=== PATIENT | male | born 1935 | race Caucasian/White ===

== ENCOUNTER 2017-01-29 17:17 | Inpatient (IN) | payer MEDICARE, OTHER ==
[~2017-01-29] VITALS: Ht 167.6 cm; Wt 92.0 kg
[~2017-01-29 17:17] MED LIST: ASPI-664 PO; CARV3.1260 PO; ERGO500014 PO; FEBU40TA PO; FOLI-49 PO; FURO40TA4 PO; GLIM1TAB2 PO; HYDR-3672 PO; NIFE30TA60 PO; PRAS10TA6 PO; SIMV20TA PO; TAMS0.4C2 PO
[2017-01-29] MEDS ORDERED: ONDANSETRON 4 MG INJ IV STA (18:31)
[2017-01-29] MEDS ORDERED: morphine 4 MG/ML VIAL IV STA (18:31)
[2017-01-29 18:57] LABS: ANION GAP 18 (8-16); BLOOD UREA NITROGEN 72 mg/dl (7-20); CALCIUM 8.8 mg/dl (8.4-10.2); CARBON DIOXIDE 19 mmol/L (21-31); CHLORIDE 112 mmol/L (97-110); CREATININE 7.82 mg/dl (0.61-1.24); GLUCOSE 68 mg/dl (70-220); SODIUM 143 mmol/L (135-144)
[2017-01-29] MEDS ORDERED: NEPHRO-VITE PO (18:57)
[2017-01-29] MEDS ORDERED: ISOS60TA PO (18:58)
[2017-01-29] MEDS ORDERED: ICOS1CAP PO (18:58)
--- NOTE | 2017-01-29 18:58 | RADRPT ---
PROCEDURE: XR Chest. CLINICAL INDICATION: Chest pain. TECHNIQUE: Single frontal chest x-ray. COMPARISON: 02/06/2016 FINDINGS: The cardiomediastinal silhouette is mildly enlarged. Pulmonary vasculature is prominent and slightly indistinct. Increased right lower lobe atelectasis noted. There is mild aortic calcification. No signs of pleural fluid or pneumothorax are seen. The osseous structures and soft tissues are unremar kable. IMPRESSION: 1. Interval increased right lower lobe atelectasis. 2. Mild prominence of interstitial markings likely reflecting mild edema. 3. Mild cardiomegaly and aortic calcification. RPTAT: RR .José Miguel Weller MD, MD Date Time Electronically viewed and signed by .José Miguel Weller MD, on 01/29/2017 18:58 .A/
[2017-01-29] MEDS ORDERED: CLON-379 PO (18:59)
[2017-01-29] MEDS ORDERED: ROPI0.25 PO (19:00)
[2017-01-29 19:13] LABS: BASOPHILS % 0.4 % (0.0-2.0); EOSINOPHILS # 0.2 10^3/ul (0.0-0.5); EOSINOPHILS % 2.4 % (0.0-7.0); HEMATOCRIT 36.5 % (42.0-52.0); HEMOGLOBIN 11.6 g/dl (14.0-18.0); LYMPHOCYTES # 0.8 10^3/ul (0.8-2.9); LYMPHOCYTES % 10.2 % (15.0-51.0); MEAN CORPUSCULAR HEMOGLOBIN 34.4 pg (29.0-33.0); MEAN CORPUSCULAR HGB CONC 31.8 g/dl (32.0-37.0); MEAN CORPUSCULAR VOLUME 108.3 fl (82.0-101.0); MEAN PLATELET VOLUME 10.2 fl (7.4-10.4); MONOCYTE # 0.6 10^3/ul (0.3-0.9); MONOCYTES % 8.3 % (0.0-11.0); NEUTROPHIL # 5.8 10^3/ul (1.6-7.5); NEUTROPHILS % 78.4 % (39.0-77.0); PLATELET COUNT 124 10^3/UL (140-415); RED BLOOD COUNT 3.37 10^6/ul (4.70-6.10); RED CELL DISTRIBUTION WIDTH 14.5 % (11.5-14.5); WHITE BLOOD COUNT 7.4 10^3/ul (4.8-10.8)
[2017-01-29 19:20] LABS: TROPONIN-I < 0.012 ng/ml (0.00-0.12)
[2017-01-29 19:21] LABS: POTASSIUM 6.1 mmol/L (3.5-5.1)
[2017-01-29] MEDS ORDERED: INSULIN REGULAR, HUMAN 100 UNIT/1 ML 3ML VIAL IV STA (19:33)
[2017-01-29] MEDS ORDERED: NA POLYST SULFON 15 GM/60 ML BTL PO STA (19:33)
[2017-01-29] MEDS ORDERED: NA BICARBONATE 8.4% 50 ML SYG IV STA (19:33)
[2017-01-29] MEDS ORDERED: DEXTROSE 50% 50 ML SYRINGE IV PRN (20:00)
[2017-01-29] MEDS ORDERED: ACETAMINOPHEN 325 MG TAB PO PRN (20:00)
[2017-01-29] MEDS ORDERED: ONDANSETRON 4 MG INJ IV PRN (20:00)
[2017-01-29 20:45] VITALS: Ht 167.6 cm; Wt 92.0 kg
[2017-01-29 21:05] VITALS: PULSE 66
[2017-01-29 21:25] VITALS: BP 166/63; RESP 20
--- NOTE | 2017-01-29 21:57 | ERA ---
ER Documentation Chief Complaint Date/Time DATE: 01/29/17 TIME: 21:55 Chief Complaint Pt BIb RA for c/o B leg weakness and back pain, pt enroute for HD. HPI Patient is an 81-year-old male with coronary disease, hypertension, and dialysis who presents with bilateral leg pain. He says he also has weakness and was unable to get up. He missed dialysis today. His blood pressure was 220 /110. His sugar was 69 per paramedics. He was brought in by ambulance. ROS All systems reviewed and are negative except as per history of present illness. Medications Home Meds Reported Medications Ropinirole Hcl* (Ropinirole Hcl*) 0.25 Mg Tablet, 0.25 MG PO HS, TAB 01/29/17 Clonidine Hcl* (Clonidine Hcl*) 0.1 Mg Tab, 0.1 MG PO TID Y for HTN, TAB NEEDED IF SBP>160 01/29/17 Icosapent Ethyl (VASCEPA) 1 Gm Capsule, 1 GM PO QID, CAP 01/29/17 Isosorbide Mononitrate* (Isosorbide Mononitrate*) 60 Mg Tab.er.24h, 60 MG PO DAILY, TAB 01/29/17 [Nephro-Chrissy] No Conflict Check, 1 TAB PO DAILY 01/29/17 Febuxostat* (Uloric*) 40 Mg Tablet, 40 MG PO DAILY, TAB 02/06/16 Nifedipine* (Nifedipine ER*) 30 Mg Tablet.sa, 30 MG PO DAILY, TAB.SA 02/06/16 Glimepiride* (Glimepiride*) 1 Mg Tablet, 1 MG PO WITH MEALS, TAB TID 02/06/16 Simvastatin* (Zocor*) 20 Mg Tablet, 20 MG PO QHS, #30 TAB 02/06/16 Prasugrel Hydrochloride* (Effient*) 10 Mg Tablet, 10 MG PO DAILY, TAB 02/06/16 Tamsulosin Hcl* (Tamsulosin Hcl*) 0.4 Mg Cap.er.24h, 0.4 MG PO DAILY, CAP 02/06/16 Carvedilol* (Carvedilol*) 3.125 Mg Tablet, 3.125 MG PO BID, #60 TAB 02/06/16 Hydralazine Hcl* (Hydralazine Hcl*) 50 Mg Tab, 50 MG PO BID, #30 TAB 02/06/16 Ergocalciferol* (Drisdol* (Vitamin D2)) 50,000 Unit Capsule, 71616 UNIT PO Q7D, CAP TAKE EVERY Tuesdays02/06/16 Discontinued Reported Medications Furosemide* (Furosemide*) 40 Mg Tablet, 40 MG PO DAILY, TAB 02/06/16 Folic Acid* (Folic Acid*) 1 Mg Tablet, 1 MG PO DAILY, TAB 02/06/16 Aspirin* (Aspirin* EC) 81 Mg Tablet.dr, 81 MG PO DAILY, TAB 02/06/16 Allergies Allergies: Coded Allergies: No Known Allergy (Unverified , 01/29/17) PMhx/Soc History of Surgery: Yes (angiogram) Anesthesia Reaction: No Hx 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 Disorder: No Hx Respiratory Disorders: Yes (chf) Hx Cardiac Disorders: Yes (cad chf, HTN) Hx Psychiatric Problems: No Hx Miscellaneous Medical Probl: Yes (ckd, BPH) Hx Alcohol Use: No Hx Substance Use: No Hx Tobacco Use: Yes Smoking Status: Current every day smoker FmHx Family History: No diabetes Physical Exam Vitals Vital Signs Date Time Temp Pulse Resp B/P Pulse Ox O2 Delivery O2 Flow Rate FiO2 01/29/17 18:53 72 20 181/62 95 01/29/17 18:20 98.1 78 20 188/64 95 Physical Exam Const: Moderate distress Head: Atraumatic Eyes: Normal Conjunctiva ENT: Normal External Ears, Nose and Mouth. Neck: Full range of motion..~ No meningismus. Resp: Clear to auscultation bilaterally Cardio: Regular rate and rhythm, no murmurs Abd: Soft, non tender, non distended. Normal bowel sounds Skin: No petechiae or rashes Back: No midline or flank tenderness Ext: 2+ pitting edema bilateral lower extremities Neur: Awake and alert Psych: Normal Mood and Affect Result Diagram: 01/29/17181901/29/17 182 Results 24 hrs Laboratory Tests Test 01/29/17 18:20 White Blood Count 7.410^3/ul Red Blood Count 3.3710^6/ul Hemoglobin 11.6g/dl Hematocrit 36.5% Mean Corpuscular Volume 108.3fl Mean Corpuscular Hemoglobin 34.4pg Mean Corpuscular Hemoglobin Concent 31.8g/dl Red Cell Distribution Width 14.5% Platelet Count 63183^3/UL Mean Platelet Volume 10.2fl Neutrophils % 78.4% Lymphocytes % 10.2% Monocytes % 8.3% Eosinophils % 2.4% Basophils % 0.4% Nucleated Red Blood Cells % 0.0/100WBC Neutrophils # 5.810^3/ul Lymphocytes # 0.810^3/ul Monocytes # 0.610^3/ul Eosinophils # 0.210^3/ul Basophils # 0.010^3/ul Nucleated Red Blood Cells # 0.010^3/ul Sodium Level 143mmol/L Potassium Level 6.1mmol/L Chloride Level 112mmol/L Carbon Dioxide Level 19mmol/L Anion Gap 18 Blood Urea Nitrogen 72mg/dl Creatinine 7.82mg/dl Glucose Level 68mg/dl Calcium Level 8.8mg/dl Troponin I < 0.012ng/ml Current Medications Medications (Trade) Dose Ordered Sig/Bethel Route PRN Reason Start Time Stop Time Status Last Admin Dose Admin Morphine Sulfate (morphine) 4 mg ONCE STAT IV 01/29/17 18:31 01/29/17 18:32 DC 01/29/17 18:42 Ondansetron HCl (Zofran Inj) 4 mg ONCE STAT IV 01/29/17 18:31 01/29/17 18:32 DC 01/29/17 18:42 Sodium Polystyrene Sulfonate (Kayexalate) 30 gm ONCE STAT PO 01/29/17 19:33 01/29/17 19:38 DC 01/29/17 20:13 Sodium Bicarbonate (Na Bicarb 8.4% Syg) 50 ml ONCE STAT IV 01/29/17 19:33 01/29/17 19:38 DC 01/29/17 20:13 Insulin Human Regular (Humulin R) 10 unit ONCE STAT IV 01/29/17 19:33 01/29/17 19:38 DC 01/29/17 20:18 Procedures/MDM EKG read by me: Rate/Rhythm: Regular rate and rhythm at a normal rate Intervals: Normal Impression: No evidence of ischemia or arrhythmia Chest x-ray shows no pneumonia or pneumothorax per radiology. Patient is an 81-year-old male with coronary disease, hypertension, and dialysis who presents with missing dialysis. He was found to have hyperkalemia and was given insulin, glucose, bicarbonate, and Kayexalate. The patient will be admitted to the panel team to a telemetry bed. The patient will need to have his dialysis. Departure Diagnosis: Primary Impression: Hyperkalemia ZUNILDA AGUIRRE MD Jan 29, 2017 21:57
[2017-01-30] VITALS (14 sets, daily range): BP systolic 140–194; BP diastolic 64–87; PULSE 61–85; RESP 16–20
[2017-01-30 00:18] LABS: TROPONIN-I 0.031 ng/ml (0.00-0.12)
[2017-01-30 00:20] LABS: CK-MB 1.34 ng/ml (0.0-2.4)
[2017-01-30] MEDS ORDERED: GLUCAGON 1 MG INJ IM PRN (01:00)
[2017-01-30] MEDS ORDERED: DEXTROSE 50% 50 ML SYRINGE IV PRN ×2 (01:00)
[2017-01-30] MEDS ORDERED: GLUCOSE GEL 15 GRAM TUBE BUCCAL PRN (01:00)
[2017-01-30] MEDS ORDERED: GLUCOSE GEL 15 GRAM TUBE PO PRN ×2 (01:00)
--- NOTE | 2017-01-30 06:48 | HP ---
Date/Time of Note Date/Time of Note DATE: 01/30/17 TIME: 06:39 Assessment/Plan VTE Prophylaxis VTE Prophylaxis Intervention: heparin Lines/Catheters IV Catheter Type (from Nrs): Saline Lock Assessment/Plan Assessment/Plan 1. Bilateral lower extremity weakness -No focal weakness as well as no other symptoms suggestive of CVA. Given his risk factor as well as elevated blood pressure upon presentation, I will order CT of the brain -Additional imaging or workup as needed -Physical therapy evaluation 2. Hyperkalemia, 2/2 missed dialysis -s/p correction and ER -Nephrology for dialysis 3. ESRD on HD, Wednesday and Wednesday -See #2 4. Hypertensive urgency -Continue antihypertensives with adjustment as needed 5. History of dyslipidemia -Continue statin 6. Anemia of chronic disease -Hemoglobin stable. Patient does however has a history of upper GI bleed -We will monitor H&H. Blood transfusion, GI consult as well as additional workup if hemoglobin drops 7. History of pulmonary nodule -Will enforce/educate patient about the need for follow-up/periodic CT chest as outpatient by his primary doctor HPI/ASHLEY Admit Date/Time Admit Date/Time Jan 29, 2017 at 19:38 Hx of Present Illness This is an 81-year-old male with a history of ESRD on HD Wednesday and Wednesday, CHF , hypertension, dyslipidemia, pulmonary nodule, upper GI bleed who presented to the emergency department complaining of bilateral lower extremity weakness. Patient was having difficulty walking because of the weakness and as such he actually had to miss his dialysis. Denied upper extremity weakness, slurred speech, blurry vision, headache, seizure-like activity, chest pain or shortness of breath When he presented to the ER, blood pressure was 188/64. Labs shows a potassium of 6.1 creatinine almost 8, BUN 72, glucose 68, PLT 124 and hemoglobin 11.4. Chest x-ray shows Interval increased right lower lobe atelectasis AND Mild prominence of interstitial markings likely reflecting mild edema. . PMH/Family/Social Social History Smoking Status: Current every day smoker Exam/Review of Systems Vital Signs Vitals Vital Signs Date Time Temp Pulse Resp B/P Pulse Ox O2 Delivery O2 Flow Rate FiO2 01/30/17 04:16 97.9 84 20 145/64 98 Exam Constitutional: alert, oriented, well developed Head: atraumatic, normocephalic Eyes: EOMI, PERRL Respiratory: clear to auscultation, normal air movement Cardiovascular: nl pulses, regular rate and rhythm Gastrointestinal: non-tender, soft Extremities: normal pulses Labs Result Diagram: 01/29/17181901/29/171819 Medications Medications Current Medications Ondansetron HCl (Zofran Inj) 4 mg Q6 PRN IV NAUSEA AND/OR VOMITING; Start 01/30 at 00:00 Acetaminophen (Tylenol Tab) 650 mg Q6H PRN PO PAIN AND OR ELEVATED TEMP; Start 01/30/17 at 00:00 Clonidine (Catapres) 0.1 mg TID PRN PO HTN Last administered on 01/30/17 01:02 ; Admin Dose 0.1 MG; Start 01/30/17 at 00:00 Ergocalciferol (Drisdol) 50,000 unit Q7D PO ; Start 01/30/17 at 00:00; Status UNV Febuxostat (Uloric) 40 mg DAILY PO ; Start 01/30/17 at 09:00 Hydralazine HCl (Apresoline) 50 mg BID PO Last administered on 01/30/17 00:58 ; Admin Dose 50 MG; Start 01/30/17 at 00:00 Isosorbide Mononitrate (Imdur) 60 mg DAILY PO ; Start 01/30/17 at 09:00 Nifedipine (Procardia Xl) 30 mg DAILY PO ; Start 01/30/17 at 09:00 Prasugrel (Effient) 10 mg DAILY PO ; Start 01/30/17 at 09:00 Ropinirole HCl (Requip) 0.25 mg HS PO ; Start 01/30/17 at 21:00 Tamsulosin HCl (Flomax) 0.4 mg DAILY@21 PO ; Start 01/30/17 at 21:00 Miscellaneous Information 1 gm QID PO ; Start 01/30/17 at 09:00; Status UNV Atorvastatin Calcium (Lipitor) 10 mg QHS PO ; Start 01/30/17 at 21:00 Multivit/Ca Carb/ B Cmplx/FA/Prenat (Paulina-Chrissy) 1 tab DAILY PO ; Start 01/30/17 at 09:00 Carvedilol (Coreg) 3.125 mg BID PO Last administered on 01/30/17 00:58; Admin Dose 3.125 MG; Start 01/30/17 at 00:00 Miscellaneous Information 1 ea NOTE XX ; Start 01/30/17 at 01:00 Glucose (Glutose) 15 gm Q15M PRN PO DECREASED GLUCOSE; Start 01/30/17 at 01:00 Glucose (Glutose) 22.5 gm Q15M PRN PO DECREASED GLUCOSE; Start 01/30/17 at 01: 00 Dextrose (D50w Syringe) 25 ml Q15M PRN IV DECREASED GLUCOSE; Start 01/30/17 at 01:00 Dextrose (D50w Syringe) 50 ml Q15M PRN IV DECREASED GLUCOSE; Start 01/30/17 at 01:00 Glucagon (Glucagen) 1 mg Q15M PRN IM DECREASED GLUCOSE; Start 01/30/17 at 01:00 Glucose (Glutose) 15 gm Q15M PRN BUCCAL DECREASED GLUCOSE; Start 01/30/17 at 01 :00 Miscellaneous Information (*Order Clarification Bulletin) MEDICATION REQUIRES CLARIFICATI... Q8H XX Last administered on 01/30/17 01:04; Admin Dose 0.1 EA; Start 01/30/17 at 01:00 KENNA DORANTES MD Jan 30, 2017 06:48
[2017-01-30] MEDS ORDERED: GLIMEPIRIDE 2 MG TAB PO SCH (08:00)
[2017-01-30 08:08] LABS: TROPONIN-I 0.036 ng/ml (0.00-0.12)
[2017-01-30 08:11] LABS: CK-MB 2.26 ng/ml (0.0-2.4)
[2017-01-30 08:29] LABS: ALBUMIN 3.6 g/dl (3.3-4.9); ALBUMIN/GLOBULIN RATIO 1.02; CALCIUM 8.7 mg/dl (8.4-10.2); CREATININE 7.81 mg/dl (0.61-1.24); MAGNESIUM 1.9 mg/dl (1.7-2.5); PHOSPHORUS 6.5 mg/dl (2.5-4.9); POTASSIUM 5.7 mmol/L (3.5-5.1); TOTAL PROTEIN 7.1 g/dl (6.1-8.1)
[2017-01-30] MEDS: ISOSORBIDE MONONITRATE(SR)60 MG TAB PO SCH (09:06)
[2017-01-30] MEDS: PRASUGREL HYDROCHLORIDE 10 MG TABLET PO SCH (09:06)
[2017-01-30] MEDS: MULTIVIT/CA CARB/B CMPLX/FA TAB PO SCH (09:07)
[2017-01-30] MEDS: FEBUXOSTAT 40 MG TABLET PO SCH (09:07)
[2017-01-30] MEDS: NIFEdipine (XL) 30 MG TAB PO SCH (09:08)
[2017-01-30] MEDS: DEXTROSE 5% 1,000 ML IV SCH (10:52)
[2017-01-30] MEDS: INSULIN ASPART [NOVOLOG] 3 ML PEN SC SCH ×3 (12:00→20:41)
--- NOTE | 2017-01-30 12:29 | CONS ---
Date/Time of Note Date/Time of Note DATE: 01/30/17 TIME: 12:24 Consultation Date/Type/Reason Admit Date/Time Jan 29, 2017 at 19:38 Date of Consultation: Jan 30, 2017 Reason for Consultation esrd Hx of Present Illness HISTORY OF PRESENT ILLNESS: This is a 81 year-old male with a past medical history of CHF, history of hypertension, history of ESRD on HD twice a week. The patient is being followed by primary drug room operator, Dr. Dominguez, at [facility], who presented to [facility] on 01/29/17 for severe weakness. He is noted to be hyperkalemic. His last full HD was yesterday. We were asked to assist with management of his dialytic needs PAST MEDICAL HISTORY: History of hypertension, CHF, ESRD, coronary artery disease. ALLERGIES: NO KNOWN DRUG ALLERGIES. MEDICATIONS: reviewed PAST SURGICAL HISTORY: None per the patient. FAMILY HISTORY: No family history of kidney disease or heart disease. SOCIAL HISTORY: The patient is a smoker. No alcohol or drug use. REVIEW OF SYSTEMS A 14-point review of systems was conducted. Pertinent positives in HPI, otherwise negative. PHYSICAL EXAMINATION GENERAL: The patient in no acute distress. HEENT: Head is normocephalic. NECK: Supple. HEART: Regular rate. No gallops, clicks. LUNGS: Show diminished breath sounds at base, otherwise clear. ABDOMEN: Soft, nontender to palpation. No rebound or guarding. EXTREMITIES: Negative for clubbing, cyanosis, or edema. DERMATOLOGIC: No rashes. MUSCULOSKELETAL: No joint effusions. NEUROLOGIC: No focal deficits. I/P 1. ESRD: will be dialyzed for hyperkalemia and mild chf. he will be seen again during treatment 2. hyperkalemia. 3. Mineral bone disease. Will check phosphorus level as well as a vitamin D, and a PTH level. Will continue to monitor. 4. anemia: h/h at target. will hold epogen 5. History of congestive heart failure. will increase uf with hd Thank you, Dr. Santillan, for this very interesting consult. It will be a pleasure to follow the patient with you throughout the hospital course. Social History Smoking Status: Current every day smoker Exam/Review of Systems Vital Signs Vitals Vital Signs Date Time Temp Pulse Resp B/P Pulse Ox O2 Delivery O2 Flow Rate FiO2 01/30/17 12:17 69 9/16/17 12:05 98.6 16 164/87 90 Results Result Diagram: 01/29/17 1820 01/30/17 0718 Results 24 hrs Laboratory Tests Test 01/29/17 18:20 01/29/17 23:29 01/30/17 07:18 01/30/17 10:06 White Blood Count 7.4 Red Blood Count 3.37 L Hemoglobin 11.6 L Hematocrit 36.5 #L Mean Corpuscular Volume 108.3 H Mean Corpuscular Hemoglobin 34.4 H Mean Corpuscular Hemoglobin Concent 31.8 L Red Cell Distribution Width 14.5 Platelet Count 124 L Mean Platelet Volume 10.2 Neutrophils % 78.4 H Lymphocytes % 10.2 L Monocytes % 8.3 Eosinophils % 2.4 Basophils % 0.4 Nucleated Red Blood Cells % 0.0 Neutrophils # 5.8 Lymphocytes # 0.8 Monocytes # 0.6 Eosinophils # 0.2 Basophils # 0.0 Nucleated Red Blood Cells # 0.0 Sodium Level 143 145 H Potassium Level 6.1 *H 5.7 H Chloride Level 112 H 112 H Carbon Dioxide Level 19 L 22 Anion Gap 18 H 17 H Blood Urea Nitrogen 72 H 73 H Creatinine 7.82 H 7.81 H Glucose Level 68 L 37 #*L Calcium Level 8.8 8.7 Troponin I < 0.012 0.031 0.036 Creatine Kinase 33 52 Creatine Kinase Index 4.1 4.3 Creatinine Kinase MB (Mass) 1.34 2.26 Phosphorus Level 6.5 H Magnesium Level 1.9 Total Bilirubin 0.0 L Direct Bilirubin 0.00 Indirect Bilirubin 0.0 Aspartate Amino Transf (AST/SGOT) 18 Alanine Aminotransferase (ALT/SGPT) 23 Alkaline Phosphatase 56 Total Protein 7.1 Albumin 3.6 Globulin 3.50 H Albumin/Globulin Ratio 1.02 Bedside Glucose 49 *L Test 01/30/17 12:02 Bedside Glucose 74 Medications Medications Current Medications Ondansetron HCl (Zofran Inj) 4 mg Q6 PRN IV NAUSEA AND/OR VOMITING; Start 01/30 at 00:00 Acetaminophen (Tylenol Tab) 650 mg Q6H PRN PO PAIN AND OR ELEVATED TEMP; Start 01/30/17 at 00:00 Clonidine (Catapres) 0.1 mg TID PRN PO HTN Last administered on 01/30/17 01:02 ; Admin Dose 0.1 MG; Start 01/30/17 at 00:00 Ergocalciferol (Drisdol) 50,000 unit Q7D PO ; Start 01/30/17 at 00:00; Status UNV Febuxostat (Uloric) 40 mg DAILY PO Last administered on 01/30/17 09:07; Admin Dose 40 MG; Start 01/30/17 at 09:00 Hydralazine HCl (Apresoline) 50 mg BID PO Last administered on 01/30/17 09:05 ; Admin Dose 50 MG; Start 01/30/17 at 00:00 Isosorbide Mononitrate (Imdur) 60 mg DAILY PO Last administered on 01/30/17 09 :06; Admin Dose 60 MG; Start 01/30/17 at 09:00 Nifedipine (Procardia Xl) 30 mg DAILY PO Last administered on 01/30/17 09:08; Admin Dose 30 MG; Start 01/30/17 at 09:00 Prasugrel (Effient) 10 mg DAILY PO Last administered on 01/30/17 09:06; Admin Dose 10 MG; Start 01/30/17 at 09:00 Ropinirole HCl (Requip) 0.25 mg HS PO ; Start 01/30/17 at 21:00 Tamsulosin HCl (Flomax) 0.4 mg DAILY@21 PO ; Start 01/30/17 at 21:00 Miscellaneous Information 1 gm QID PO ; Start 01/30/17 at 09:00; Status UNV Atorvastatin Calcium (Lipitor) 10 mg QHS PO ; Start 01/30/17 at 21:00 Multivit/Ca Carb/ B Cmplx/FA/Prenat (Paulina-Chrissy) 1 tab DAILY PO Last administered on 01/30/17 09:07; Admin Dose 1 TAB; Start 01/30/17 at 09:00 Carvedilol (Coreg) 3.125 mg BID PO Last administered on 01/30/17 09:06; Admin Dose 3.125 MG; Start 01/30/17 at 00:00 Miscellaneous Information 1 ea NOTE XX ; Start 01/30/17 at 01:00 Glucose (Glutose) 15 gm Q15M PRN PO DECREASED GLUCOSE; Start 01/30/17 at 01:00 Glucose (Glutose) 22.5 gm Q15M PRN PO DECREASED GLUCOSE; Start 01/30/17 at 01: 00 Dextrose (D50w Syringe) 25 ml Q15M PRN IV DECREASED GLUCOSE; Start 01/30/17 at 01:00 Dextrose (D50w Syringe) 50 ml Q15M PRN IV DECREASED GLUCOSE; Start 01/30/17 at 01:00 Glucagon (Glucagen) 1 mg Q15M PRN IM DECREASED GLUCOSE; Start 01/30/17 at 01:00 Glucose (Glutose) 15 gm Q15M PRN BUCCAL DECREASED GLUCOSE; Start 01/30/17 at 01 :00 Miscellaneous Information MEDICATION REQUIRES CLARIFICATI... Q8H XX Last administered on 01/30/17 01:04; Admin Dose 0.1 EA; Start 01/30/17 at 01:00 Dextrose (D5W) 1,000 ml @ 50 mls/hr Q20H IV Last administered on 01/30/17 10: 52; Admin Dose 50 MLS/HR; Start 01/30/17 at 10:30 Diagnostic Test (Pha) (Accu-Chek) 1 ea 02 XX ; Start 01/31/17 at 02:00 Diagnostic Test (Pha) (Accu-Chek) 1 ea 02 XX ; Start 01/31/17 at 02:00 IGOR MORFIN DO Jan 30, 2017 12:29
[2017-01-30] MEDS: TAMSULOSIN (SR) 0.4 MG CAP PO SCH (20:41)
[2017-01-30] MEDS: ATORVASTATIN 10 MG TAB PO SCH (20:41)
--- NOTE | 2017-01-30 23:42 | PN ---
Date/Time of Note Date/Time of Note DATE: 01/30/17 TIME: 19:53 Assessment/Plan VTE Prophylaxis VTE Prophylaxis Intervention: SCD's Lines/Catheters IV Catheter Type (from [facility]): Peripheral IV Urinary Cath still in place: No Assessment/Plan Chief Complaint/Hosp Course Assessment 1. Bilateral lower extremity weakness. Likely deconditioning. No other evidence pointing to neurological deficit. Of note patient does have electrolyte imbalance secondary to missed HD. Will continue to monitor neuro status and treat underlying symptoms 2. Hyperkalemia secondary to missed dialysis. Continue on dialysis. Will provide with Kayexalate as needed. 3. End-stage renal disease on dialysis. Patient of note is only on dialysis on Wednesday and Wednesday. Will get stack clerk follow. Resume HD for Wednesday and Wednesday and as needed. 4. Hypertensive urgency. Will resume her antihypertensives. Adjust needed. 5. Dyslipidemia. Continue same medication. 6. Anemia of chronic disease. Monitor CBC. Remains stable at present. Will get GI consultation pending clinical course. Likely anemia of chronic disease 7. Pulmonary nodule. Stable at present. Plan for outpatient follow-up with CT scan of the chest as needed. Disposition plan: Noted with hyperkalemia. Likely secondary to missed dialysis. Will plan for HD. Materials Development Engineer to follow. Discussed plan of care with Dr. Munguia Problems: Subjective 24 Hr Interval Summary Free Text/Dictation patient resting at this time. was reportedly hypoglycemic in a.m. however asymptomatic. comfortable at present Exam/Review of Systems Vital Signs Vitals Vital Signs Date Time Temp Pulse Resp B/P Pulse Ox O2 Delivery O2 Flow Rate FiO2 01/30/17 16:52 61 01/30/17 16:41 140/64 01/30/17 15:30 98.7 17 96 Exam Constitutional: alert, obese, oriented Head: normocephalic Eyes: nl conjunctiva Respiratory: clear to auscultation Cardiovascular: regular rate and rhythm Gastrointestinal: non-tender, soft 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: MEND WORKER II-XII intact, nl mental status, nl speech Results Result Diagram: 01/29/17 1820 01/30/17 0718 Results 24 hrs Laboratory Tests Test 01/29/17 23:29 01/30/17 07:18 01/30/17 10:06 01/30/17 12:02 Creatine Kinase 33 52 Creatine Kinase Index 4.1 4.3 Creatinine Kinase MB (Mass) 1.34 2.26 Troponin I 0.031 0.036 Sodium Level 145 H Potassium Level 5.7 H Chloride Level 112 H Carbon Dioxide Level 22 Anion Gap 17 H Blood Urea Nitrogen 73 H Creatinine 7.81 H Glucose Level 37 #*L Calcium Level 8.7 Phosphorus Level 6.5 H Magnesium Level 1.9 Total Bilirubin 0.0 L Direct Bilirubin 0.00 Indirect Bilirubin 0.0 Aspartate Amino Transf (AST/SGOT) 18 Alanine Aminotransferase (ALT/SGPT) 23 Alkaline Phosphatase 56 Total Protein 7.1 Albumin 3.6 Globulin 3.50 H Albumin/Globulin Ratio 1.02 Bedside Glucose 49 *L 74 Test 01/30/17 17:36 01/30/17 18:06 Bedside Glucose 48 *L 90 Medications Medications Current Medications Ondansetron HCl (Zofran Inj) 4 mg Q6 PRN IV NAUSEA AND/OR VOMITING; Start 01/30 at 00:00 Acetaminophen (Tylenol Tab) 650 mg Q6H PRN PO PAIN AND OR ELEVATED TEMP; Start 01/30/17 at 00:00 Clonidine (Catapres) 0.1 mg TID PRN PO HTN Last administered on 01/30/17 15:45 ; Admin Dose 0.1 MG; Start 01/30/17 at 00:00 Ergocalciferol (Drisdol) 50,000 unit Q7D PO ; Start 01/30/17 at 00:00; Status UNV Febuxostat (Uloric) 40 mg DAILY PO Last administered on 01/30/17 09:07; Admin Dose 40 MG; Start 01/30/17 at 09:00 Hydralazine HCl (Apresoline) 50 mg BID PO Last administered on 01/30/17 09:05 ; Admin Dose 50 MG; Start 01/30/17 at 00:00 Isosorbide Mononitrate (Imdur) 60 mg DAILY PO Last administered on 01/30/17 09 :06; Admin Dose 60 MG; Start 01/30/17 at 09:00 Nifedipine (Procardia Xl) 30 mg DAILY PO Last administered on 01/30/17 09:08; Admin Dose 30 MG; Start 01/30/17 at 09:00 Prasugrel (Effient) 10 mg DAILY PO Last administered on 9/16/17at 09:06; Admin Dose 10 MG; Start 01/30/17 at 09:00 Ropinirole HCl (Requip) 0.25 mg HS PO ; Start 01/30/17 at 21:00 Tamsulosin HCl (Flomax) 0.4 mg DAILY@21 PO ; Start 01/30/17 at 21:00 Miscellaneous Information 1 gm QID PO ; Start 01/30/17 at 09:00; Status UNV Atorvastatin Calcium (Lipitor) 10 mg QHS PO ; Start 01/30/17 at 21:00 Multivit/Ca Carb/ B Cmplx/FA/Prenat (Paulina-Chrissy) 1 tab DAILY PO Last administered on 01/30/17 09:07; Admin Dose 1 TAB; Start 01/30/17 at 09:00 Carvedilol (Coreg) 3.125 mg BID PO Last administered on 01/30/17 09:06; Admin Dose 3.125 MG; Start 01/30/17 at 00:00 Miscellaneous Information 1 ea NOTE XX ; Start 01/30/17 at 01:00 Glucose (Glutose) 15 gm Q15M PRN PO DECREASED GLUCOSE; Start 01/30/17 at 01:00 Glucose (Glutose) 22.5 gm Q15M PRN PO DECREASED GLUCOSE; Start 01/30/17 at 01: 00 Dextrose (D50w Syringe) 25 ml Q15M PRN IV DECREASED GLUCOSE; Start 01/30/17 at 01:00 Dextrose (D50w Syringe) 50 ml Q15M PRN IV DECREASED GLUCOSE; Start 01/30/17 at 01:00 Glucagon (Glucagen) 1 mg Q15M PRN IM DECREASED GLUCOSE; Start 01/30/17 at 01:00 Glucose (Glutose) 15 gm Q15M PRN BUCCAL DECREASED GLUCOSE; Start 01/30/17 at 01 :00 Miscellaneous Information MEDICATION REQUIRES CLARIFICATI... Q8H XX Last administered on 01/30/17 01:04; Admin Dose 0.1 EA; Start 01/30/17 at 01:00 Dextrose (D5W) 1,000 ml @ 50 mls/hr Q20H IV Last administered on 01/30/17 10: 52; Admin Dose 50 MLS/HR; Start 01/30/17 at 10:30 Diagnostic Test (Pha) (Accu-Chek) 1 ea 02 XX ; Start 01/31/17 at 02:00 Diagnostic Test (Pha) (Accu-Chek) XX ; Start 01/31/17 at 02:00 JANES RAINES Jan 30, 2017 23:40
[2017-01-31] VITALS (19 sets, daily range): BP systolic 142–183; BP diastolic 55–80; PULSE 59–85; RESP 17–20
[2017-01-31] MEDS: ROPINIROLE 0.25 MG TAB PO SCH ×2 (00:52→20:51)
[2017-01-31] MEDS: ACCU-CHEK XX SCH ×2 (02:00)
[2017-01-31] MEDS: DEXTROSE 5% 1,000 ML IV SCH (05:56)
[2017-01-31 07:54] LABS: BASOPHILS % 0.3 % (0.0-2.0); EOSINOPHILS # 0.1 10^3/ul (0.0-0.5); EOSINOPHILS % 1.6 % (0.0-7.0); HEMATOCRIT 33.3 % (42.0-52.0); HEMOGLOBIN 10.3 g/dl (14.0-18.0); LYMPHOCYTES # 0.7 10^3/ul (0.8-2.9); LYMPHOCYTES % 10.4 % (15.0-51.0); MEAN CORPUSCULAR HEMOGLOBIN 33.2 pg (29.0-33.0); MEAN CORPUSCULAR HGB CONC 30.9 g/dl (32.0-37.0); MEAN CORPUSCULAR VOLUME 107.4 fl (82.0-101.0); MEAN PLATELET VOLUME 10.9 fl (7.4-10.4); MONOCYTE # 0.7 10^3/ul (0.3-0.9); MONOCYTES % 10.6 % (0.0-11.0); NEUTROPHIL # 4.8 10^3/ul (1.6-7.5); NEUTROPHILS % 76.9 % (39.0-77.0); PLATELET COUNT 104 10^3/UL (140-415); RED CELL DISTRIBUTION WIDTH 14.5 % (11.5-14.5); WHITE BLOOD COUNT 6.2 10^3/ul (4.8-10.8)
[2017-01-31] MEDS: INSULIN ASPART [NOVOLOG] 3 ML PEN SC SCH ×4 (08:00→20:51)
[2017-01-31 08:25] LABS: CALCIUM 8.1 mg/dl (8.4-10.2); CREATININE 7.5 mg/dl (0.61-1.24); POTASSIUM 5.3 mmol/L (3.5-5.1)
--- NOTE | 2017-01-31 08:25 | RADRPT ---
PROCEDURE: CT Brain without contrast. CLINICAL INDICATION: Altered mental status, bilateral lower extremity weakness TECHNIQUE: Routine CT scan of the brain was performed on a high resolution multi detector scanner without intravenous contrast. One or more of the following dose reduction techniques were used: Auto mated exposure control; Adjustment of the mA and/or kV according to patient size; Use of iterative r econstruction technique. CTDI = 44 mGy. DLP = 720 mGy-cm. COMPARISON: CT brain 02/06/2016 FINDINGS: Hemorrhage: No evidence of intracranial hemorrhage. Acute ischemic changes: No evidence of acute ischemic changes. Mass effect: None. Parenchymal volume: Mild central parenchymal volume loss is evident. Ventricular system: Concordant with parenchymal volume. Chronic changes: Mild chronic-appearing microvascular ischemic changes of the supratentorial white m atter. Atherosclerotic calcifications of the cavernous portions of both internal carotid arteries ar e present. Extracranial soft tissues: Unremarkable. Calvarium: No fractures. Paranasal sinuses: Visualized paranasal sinuses are clear. Mastoid air cells: Visualized mastoid air cells are clear. IMPRESSION: No acute intracranial abnormalities. Mild chronic-appearing microvascular ischemic changes of the supratentorial white matter. MRI of the brain may be useful for further evaluation. RPTAT: AADD .Nomi Guillen MD, MD Date Time Electronically viewed and signed by .Nomi Guillen MD, MD on 01/31/2017 08:25 .B/
[2017-01-31] MEDS: ISOSORBIDE MONONITRATE(SR)60 MG TAB PO SCH (09:00)
[2017-01-31] MEDS: MULTIVIT/CA CARB/B CMPLX/FA TAB PO SCH (09:00)
[2017-01-31] MEDS: NIFEdipine (XL) 30 MG TAB PO SCH (09:00)
[2017-01-31] MEDS: FISH OIL 1,000 MG CAP PO SCH ×2 (09:30→20:50)
[2017-01-31] MEDS: PRASUGREL HYDROCHLORIDE 10 MG TABLET PO SCH (09:56)
[2017-01-31] MEDS: FEBUXOSTAT 40 MG TABLET PO SCH (09:56)
--- NOTE | 2017-01-31 10:13 | PN ---
Date/Time of Note Date/Time of Note DATE: 01/31/17 TIME: 10:11 Assessment/Plan VTE Prophylaxis VTE Prophylaxis Intervention: other Lines/Catheters IV Catheter Type (from Nrs): Peripheral IV Urinary Cath still in place: No Assessment/Plan Chief Complaint/Hosp Course HISTORY OF PRESENT ILLNESS: This is a 81 year-old male with a past medical history of CHF, history of hypertension, history of ESRD on HD twice a week. The patient is being followed by primary blowing engineer, Dr. Dominguez, at [facility], who presented to [facility] on 01/29/17 for severe weakness. He was noted to be hyperkalemic. His last full HD was 2 days ago. REVIEW OF SYSTEMS A 14-point review of systems was conducted. Pertinent positives in HPI, otherwise negative. PHYSICAL EXAMINATION GENERAL: The patient in no acute distress. HEENT: Head is normocephalic. NECK: Supple. HEART: Regular rate. No gallops, clicks. LUNGS: Show diminished breath sounds at base, otherwise clear. ABDOMEN: Soft, nontender to palpation. No rebound or guarding. EXTREMITIES: Negative for clubbing, cyanosis, or edema. DERMATOLOGIC: No rashes. MUSCULOSKELETAL: No joint effusions. NEUROLOGIC: No focal deficits. I/P 1. ESRD: will be dialyzed for hyperkalemia and mild chf. he will be seen again during treatment 2. hyperkalemia. 3. Mineral bone disease. Will check phosphorus level as well as a vitamin D, and a PTH level. Will continue to monitor. 4. anemia: h/h at target. will hold epogen 5. History of congestive heart failure. will increase uf with hd Problems: Exam/Review of Systems Vital Signs Vitals Vital Signs Date Time Temp Pulse Resp B/P Pulse Ox O2 Delivery O2 Flow Rate FiO2 01/31/17 08:23 59 01/31/17 08:20 98.2 17 152/66 94 Intake and Output 01/30/17 01/30/17 01/31/17 15:00 23:00 07:00 Intake Total 710 ml 1000 ml Balance 710 ml 1000 ml Results Result Diagram: 01/31/17 0709 01/31/17 0709 Results 24 hrs Laboratory Tests Test 01/30/17 12:02 01/30/17 17:36 01/30/17 18:06 01/30/17 20:37 Bedside Glucose 74 48 *L 90 90 Test 01/31/17 02:01 01/31/17 02:16 01/31/17 03:03 01/31/17 03:25 Bedside Glucose 50 L 50 L 101 93 Test 01/31/17 07:09 01/31/17 08:20 01/31/17 08:40 01/31/17 08:56 White Blood Count 6.2 Red Blood Count 3.10 L Hemoglobin 10.3 L Hematocrit 33.3 L Mean Corpuscular Volume 107.4 H Mean Corpuscular Hemoglobin 33.2 H Mean Corpuscular Hemoglobin Concent 30.9 L Red Cell Distribution Width 14.5 Platelet Count 104 L Mean Platelet Volume 10.9 H Neutrophils % 76.9 Lymphocytes % 10.4 L Monocytes % 10.6 Eosinophils % 1.6 Basophils % 0.3 Nucleated Red Blood Cells % 0.0 Neutrophils # 4.8 Lymphocytes # 0.7 L Monocytes # 0.7 Eosinophils # 0.1 Basophils # 0.0 Nucleated Red Blood Cells # 0.0 Sodium Level 135 Potassium Level 5.3 H Chloride Level 107 Carbon Dioxide Level 22 Anion Gap 11 Blood Urea Nitrogen 71 H Creatinine 7.50 H Glucose Level 60 #L Calcium Level 8.1 L Bedside Glucose 52 L 51 L 74 Test 01/31/17 09:10 01/31/17 09:31 Bedside Glucose 89 101 Medications Medications Current Medications Ondansetron HCl (Zofran Inj) 4 mg Q6 PRN IV NAUSEA AND/OR VOMITING; Start 01/30 at 00:00 Acetaminophen (Tylenol Tab) 650 mg Q6H PRN PO PAIN AND OR ELEVATED TEMP; Start 01/30/17 at 00:00 Clonidine (Catapres) 0.1 mg TID PRN PO FOR SBP >160 Last administered on 00:52; Admin Dose 0.1 MG; Start 01/30/17 at 00:00 Ergocalciferol (Drisdol) 50,000 unit Q7D PO ; Start 02/01/17 at 09:00 Febuxostat (Uloric) 40 mg DAILY PO Last administered on 01/31/17 09:56; Admin Dose 40 MG; Start 01/30/17 at 09:00 Hydralazine HCl (Apresoline) 50 mg BID PO Last administered on 01/30/17 20:41 ; Admin Dose 50 MG; Start 01/30/17 at 00:00 Isosorbide Mononitrate (Imdur) 60 mg DAILY PO Last administered on 01/30/17 09 :06; Admin Dose 60 MG; Start 01/30/17 at 09:00 Nifedipine (Procardia Xl) 30 mg DAILY PO Last administered on 01/30/17 09:08; Admin Dose 30 MG; Start 01/30/17 at 09:00 Prasugrel (Effient) 10 mg DAILY PO Last administered on 01/31/17 09:56; Admin Dose 10 MG; Start 01/30/17 at 09:00 Ropinirole HCl (Requip) 0.25 mg HS PO Last administered on 01/31/17 00:52; Admin Dose 0.25 MG; Start 01/30/17 at 21:00 Tamsulosin HCl (Flomax) 0.4 mg DAILY@21 PO Last administered on 01/30/17 20:41 ; Admin Dose 0.4 MG; Start 01/30/17 at 21:00 Fish Oil (Fish Oil) 1,000 mg BID PO ; Start 01/31/17 at 09:30 Atorvastatin Calcium (Lipitor) 10 mg QHS PO Last administered on 01/30/17 20: 41; Admin Dose 10 MG; Start 01/30/17 at 21:00 Multivit/Ca Carb/ B Cmplx/FA/Prenat (Paulina-Chrissy) 1 tab DAILY PO Last administered on 01/30/17 09:07; Admin Dose 1 TAB; Start 01/30/17 at 09:00 Carvedilol (Coreg) 3.125 mg BID PO Last administered on 01/30/17 20:41; Admin Dose 3.125 MG; Start 01/30/17 at 00:00 Miscellaneous Information 1 ea NOTE XX ; Start 01/30/17 at 01:00 Glucose (Glutose) 15 gm Q15M PRN PO DECREASED GLUCOSE; Start 01/30/17 at 01:00 Glucose (Glutose) 22.5 gm Q15M PRN PO DECREASED GLUCOSE; Start 01/30/17 at 01: 00 Dextrose (D50w Syringe) 25 ml Q15M PRN IV DECREASED GLUCOSE; Start 01/30/17 at 01:00 Dextrose (D50w Syringe) 50 ml Q15M PRN IV DECREASED GLUCOSE; Start 01/30/17 at 01:00 Glucagon (Glucagen) 1 mg Q15M PRN IM DECREASED GLUCOSE; Start 01/30/17 at 01:00 Glucose 15 gm 15 gm Q15M PRN BUCCAL DECREASED GLUCOSE; Start 01/30/17 at 01:00 Dextrose (D5W) 1,000 ml @ 50 mls/hr Q20H IV Last administered on 01/31/17t 05: 56; Admin Dose 50 MLS/HR; Start 01/30/17 at 10:30 Diagnostic Test (Pha) (Accu-Chek) 1 ea 02 XX ; Start 01/31/17 at 02:00 Diagnostic Test (Pha) (Accu-Chek) 1 ea 02 XX ; Start 01/31/17 at 02:00 IGOR MORFIN DO Jan 31, 2017 10:13
--- NOTE | 2017-01-31 12:35 | PN ---
Date/Time of Note Date/Time of Note DATE: 01/31/17 TIME: 12:31 Assessment/Plan VTE Prophylaxis VTE Prophylaxis Intervention: SCD's Lines/Catheters [facility]ter Type (from [facility]): Peripheral IV Urinary Cath still in place: No Assessment/Plan Chief Complaint/Hosp Course Assessment 1. Bilateral lower extremity weakness. Likely deconditioning. No other evidence pointing to neurological deficit. Of note patient does have electrolyte imbalance secondary to missed HD. Will continue to monitor neuro status and treat underlying symptoms. PT eval pending 2. Hyperkalemia secondary to missed dialysis. Continue on dialysis. Will provide with Kayexalate as needed. 3. End-stage renal disease on dialysis. Patient of note is only on dialysis on Wednesday and Wednesday. Will get delivery driver follow. Resume HD for Wednesday and Wednesday and as needed. 4. Hypertensive urgency. Will resume her antihypertensives. Adjust needed. 5. Dyslipidemia. Continue same medication. 6. Anemia of chronic disease. Monitor CBC. Remains stable at present. Will get GI consultation pending clinical course. Likely anemia of chronic disease 7. Pulmonary nodule. Stable at present. Plan for outpatient follow-up with CT scan of the chest Disposition plan: Plan for HD today. Still reportedly unable to ambulate will get PT evaluation. continue inpatient monitoring for now Discussed plan of care with Dr. Munguia Problems: Subjective 24 Hr Interval Summary Free Text/Dictation comfortable at present. no s/s of distress . 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 intact, nl mental status, nl speech Results Result Diagram: 01/31/17 0709 01/31/17 0709 Results 24 hrs Laboratory Tests Test 01/30/17 17:36 01/30/17 18:06 01/30/17 20:37 01/31/17 02:01 Bedside Glucose 48 *L 90 90 50 L Test 01/31/17 02:16 01/31/17 03:03 01/31/17 03:25 01/31/17 07:09 Bedside Glucose 50 L 101 93 White Blood Count 6.2 Red Blood Count 3.10 L Hemoglobin 10.3 L Hematocrit 33.3 L Mean Corpuscular Volume 107.4 H Mean Corpuscular Hemoglobin 33.2 H Mean Corpuscular Hemoglobin Concent 30.9 L Red Cell Distribution Width 14.5 Platelet Count 104 L Mean Platelet Volume 10.9 H Neutrophils % 76.9 Lymphocytes % 10.4 L Monocytes % 10.6 Eosinophils % 1.6 Basophils % 0.3 Nucleated Red Blood Cells % 0.0 Neutrophils # 4.8 Lymphocytes # 0.7 L Monocytes # 0.7 Eosinophils # 0.1 Basophils # 0.0 Nucleated Red Blood Cells # 0.0 Sodium Level 135 Potassium Level 5.3 H Chloride Level 107 Carbon Dioxide Level 22 Anion Gap 11 Blood Urea Nitrogen 71 H Creatinine 7.50 H Glucose Level 60 #L Calcium Level 8.1 L Test 01/31/17 08:20 01/31/17 08:40 01/31/17 08:56 01/31/17 09:10 Bedside Glucose 52 L 51 L 74 89 Test 01/31/17 09:31 01/31/17 12:10 Bedside Glucose 101 73 Medications Medications Current Medications Ondansetron HCl (Zofran Inj) 4 mg Q6 PRN IV NAUSEA AND/OR VOMITING; Start 01/30 at 00:00 Acetaminophen (Tylenol Tab) 650 mg Q6H PRN PO PAIN AND OR ELEVATED TEMP; Start 01/30/17 at 00:00 Clonidine (Catapres) 0.1 mg TID PRN PO FOR SBP >160 Last administered on 00:52; Admin Dose 0.1 MG; Start 01/30/17 at 00:00 Ergocalciferol (Drisdol) 50,000 unit Q7D PO ; Start 02/01/17 at 09:00 Febuxostat (Uloric) 40 mg DAILY PO Last administered on 01/31/17 09:56; Admin Dose 40 MG; Start 01/30/17 at 09:00 Hydralazine HCl (Apresoline) 50 mg BID PO Last administered on 01/30/17 20:41 ; Admin Dose 50 MG; Start 01/30/17 at 00:00 Isosorbide Mononitrate (Imdur) 60 mg DAILY PO Last administered on 01/30/17 09 :06; Admin Dose 60 MG; Start 01/30/17 at 09:00 Nifedipine (Procardia Xl) 30 mg DAILY PO Last administered on 01/30/17 09:08; Admin Dose 30 MG; Start 01/30/17 at 09:00 Prasugrel (Effient) 10 mg DAILY PO Last administered on 01/31/17 09:56; Admin Dose 10 MG; Start 01/30/17 at 09:00 Ropinirole HCl (Requip) 0.25 mg HS PO Last administered on 01/31/17 00:52; Admin Dose 0.25 MG; Start 01/30/17 at 21:00 Tamsulosin HCl (Flomax) 0.4 mg DAILY@21 PO Last administered on 01/30/17 20:41 ; Admin Dose 0.4 MG; Start 01/30/17 at 21:00 Fish Oil (Fish Oil) 1,000 mg BID PO ; Start 01/31/17 at 09:30 Atorvastatin Calcium (Lipitor) 10 mg QHS PO Last administered on 01/30/17 20: 41; Admin Dose 10 MG; Start 01/30/17 at 21:00 Multivit/Ca Carb/ B Cmplx/FA/Prenat (Paulina-Chrissy) 1 tab DAILY PO Last administered on 01/30/17 09:07; Admin Dose 1 TAB; Start 01/30/17 at 09:00 Carvedilol (Coreg) 3.125 mg BID PO Last administered on 01/30/17 20:41; Admin Dose 3.125 MG; Start 01/30/17 at 00:00 Miscellaneous Information 1 ea NOTE XX ; Start 01/30/17 at 01:00 Glucose (Glutose) 15 gm Q15M PRN PO DECREASED GLUCOSE; Start 01/30/17 at 01:00 Glucose (Glutose) 22.5 gm Q15M PRN PO DECREASED GLUCOSE; Start 01/30/17 at 01: 00 Dextrose (D50w Syringe) 25 ml Q15M PRN IV DECREASED GLUCOSE; Start 01/30/17 at 01:00 Dextrose (D50w Syringe) 50 ml Q15M PRN IV DECREASED GLUCOSE; Start 01/30/17 at 01:00 Glucagon (Glucagen) 1 mg Q15M PRN IM DECREASED GLUCOSE; Start 01/30/17 at 01:00 Glucose 15 gm 15 gm Q15M PRN BUCCAL DECREASED GLUCOSE; Start 01/30/17 at 01:00 Dextrose (D5W) 1,000 ml @ 50 mls/hr Q20H IV Last administered on 01/31/17t 05: 56; Admin Dose 50 MLS/HR; Start 01/30/17 at 10:30 Diagnostic Test (Pha) (Accu-Chek) 1 ea 02 XX ; Start 01/31/17 at 02:00 Diagnostic Test (Pha) (Accu-Chek) 1 ea 02 XX ; Start 01/31/17 at 02:00 JANES RAINES Jan 31, 2017 12:35
[2017-01-31] MEDS: TAMSULOSIN (SR) 0.4 MG CAP PO SCH (20:50)
[2017-01-31] MEDS: ATORVASTATIN 10 MG TAB PO SCH (20:51)
[2017-02-01] VITALS (14 sets, daily range): BP systolic 129–188; BP diastolic 51–85; PULSE 68–139; RESP 17–21
[2017-02-01] MEDS: ACCU-CHEK XX SCH ×2 (02:00)
[2017-02-01] MEDS: DEXTROSE 5% 1,000 ML IV SCH ×2 (02:30→21:03)
[2017-02-01] MEDS: INSULIN ASPART [NOVOLOG] 3 ML PEN SC SCH ×4 (08:00→21:00)
[2017-02-01 08:18] LABS: BASOPHILS % 0.3 % (0.0-2.0); EOSINOPHILS # 0.1 10^3/ul (0.0-0.5); EOSINOPHILS % 2.2 % (0.0-7.0); HEMATOCRIT 35.8 % (42.0-52.0); HEMOGLOBIN 11.7 g/dl (14.0-18.0); LYMPHOCYTES # 0.7 10^3/ul (0.8-2.9); LYMPHOCYTES % 11.4 % (15.0-51.0); MEAN CORPUSCULAR HEMOGLOBIN 33.6 pg (29.0-33.0); MEAN CORPUSCULAR HGB CONC 32.7 g/dl (32.0-37.0); MEAN CORPUSCULAR VOLUME 102.9 fl (82.0-101.0); MEAN PLATELET VOLUME 10.5 fl (7.4-10.4); MONOCYTE # 0.7 10^3/ul (0.3-0.9); MONOCYTES % 12.1 % (0.0-11.0); NEUTROPHIL # 4.4 10^3/ul (1.6-7.5); NEUTROPHILS % 73.7 % (39.0-77.0); PLATELET COUNT 103 10^3/UL (140-415); RED BLOOD COUNT 3.48 10^6/ul (4.70-6.10); RED CELL DISTRIBUTION WIDTH 13.8 % (11.5-14.5)
[2017-02-01 08:59] LABS: CALCIUM 8.2 mg/dl (8.4-10.2); CREATININE 5.41 mg/dl (0.61-1.24); POTASSIUM 4.2 mmol/L (3.5-5.1)
[2017-02-01] MEDS: ERGOCALCIFEROL 50,000 UNIT CAP PO SCH (09:19)
[2017-02-01] MEDS: PRASUGREL HYDROCHLORIDE 10 MG TABLET PO SCH (09:19)
[2017-02-01] MEDS: MULTIVIT/CA CARB/B CMPLX/FA TAB PO SCH (09:20)
[2017-02-01] MEDS: ISOSORBIDE MONONITRATE(SR)60 MG TAB PO SCH (09:20)
[2017-02-01] MEDS: FEBUXOSTAT 40 MG TABLET PO SCH (09:20)
[2017-02-01] MEDS: FISH OIL 1,000 MG CAP PO SCH ×2 (09:20→20:55)
[2017-02-01] MEDS: NIFEdipine (XL) 30 MG TAB PO SCH ×2 (09:20→20:54)
--- NOTE | 2017-02-01 13:28 | PN ---
Date/Time of Note Date/Time of Note DATE: 02/01/17 TIME: 13:27 Assessment/Plan VTE Prophylaxis VTE Prophylaxis Intervention: SCD's Lines/Catheters [facility] Peripheral IV Urinary Cath still in place: No Assessment/Plan Chief Complaint/Hosp Course 1. Bilateral lower extremity weakness. Most probably secondary to deconditioning. Imaging studies negative for any acute findings. Pending physical therapy evaluation. 2. End-stage renal disease on hemodialysis. Being followed by nephrology. 3. Essential hypertension. Continue antihypertensives. 4. Diabetes mellitus. Continue sliding scale insulin. 5. CAD. Continue antiplatelet therapy. 6. Dyslipidemia. Continue statins. 7. Anemia of chronic kidney disease. Monitor H&H closely. Off Epogen as per nephrology. 8. Fluids, electrolytes, and nutrition. Carbohydrate controlled, renal diet. 9. DVT prophylaxis. Bilateral sequential compression devices. 10. Plan. Await physical therapy evaluation. Continue current management. Increase the dosing of calcium channel blockers for optimal blood pressure control. Case discussed with Dr. Santillan. Problems: Subjective 24 Hr Interval Summary Free Text/Dictation Denies any pain. Complains of bilateral lower extremity weakness. Exam/Review of Systems Vital Signs Vitals Vital Signs Date Time Temp Pulse Resp B/P Pulse Ox O2 Delivery O2 Flow Rate FiO2 02/01/17 12:26 77 02/01/17 12:08 98.6 17 173/64 92 Intake and Output 01/31/17 01/31/17 02/01/17 15:00 23:00 07:00 Intake Total 300 ml 1500 ml Output Total 3300 ml Balance -3000 ml 1500 ml Exam General: Adequately build 81 year-old male lying in bed in no apparent distress. HEENT: Normocephalic, atraumatic. Eyes: Anicteric sclerae, conjunctivae clear. ENT: Nasal septum midline, oral mucosa moist. Neck supple, no JVD noticed. Respiratory: Bilaterally clear breath sounds. No use of accessory muscles of respiration. No adventitious breath sounds. Cardiovascular: S1, S2 heard. No murmurs or gallops. Abdomen: Soft, nontender, and nondistended. Bowel sounds positive in all 4 quadrants. Genitourinary: Deferred. Extremities: No cyanosis, no clubbing, no edema. Peripheral pulses palpable. Neurologic: Cranial nerves II through XII grossly intact. The patient is awake, alert, and oriented. Skin: Normal skin turgor. No skin rashes. Results Result Diagram: 02/01/17 0648 02/01/17 0648 Results 24 hrs Laboratory Tests Test 01/31/17 17:22 01/31/17 20:40 02/01/17 06:48 02/01/17 08:09 Bedside Glucose 94 176 122 White Blood Count 6.0 Red Blood Count 3.48 L Hemoglobin 11.7 L Hematocrit 35.8 L Mean Corpuscular Volume 102.9 H Mean Corpuscular Hemoglobin 33.6 H Mean Corpuscular Hemoglobin Concent 32.7 Red Cell Distribution Width 13.8 Platelet Count 103 L Mean Platelet Volume 10.5 H Neutrophils % 73.7 Lymphocytes % 11.4 L Monocytes % 12.1 H Eosinophils % 2.2 Basophils % 0.3 Nucleated Red Blood Cells % 0.0 Neutrophils # 4.4 Lymphocytes # 0.7 L Monocytes # 0.7 Eosinophils # 0.1 Basophils # 0.0 Nucleated Red Blood Cells # 0.0 Sodium Level 133 L Potassium Level 4.2 Chloride Level 98 Carbon Dioxide Level 27 Anion Gap 12 Blood Urea Nitrogen 40 #H Creatinine 5.41 #H Glucose Level 151 Calcium Level 8.2 L Test 02/01/17 12:09 Bedside Glucose 154 Medications Medications Current Medications Ondansetron HCl (Zofran Inj) 4 mg Q6 PRN IV NAUSEA AND/OR VOMITING; Start 01/30 at 00:00 Acetaminophen (Tylenol Tab) 650 mg Q6H PRN PO PAIN AND OR ELEVATED TEMP; Start 01/30/17 at 00:00 Clonidine (Catapres) 0.1 mg TID PRN PO FOR SBP >160 Last administered on 12:10; Admin Dose 0.1 MG; Start 01/30/17 at 00:00 Ergocalciferol (Drisdol) 50,000 unit Q7D PO Last administered on 02/01/17 09: 19; Admin Dose 50,000 UNIT; Start 02/01/17 at 09:00 Febuxostat (Uloric) 40 mg DAILY PO Last administered on 02/01/17 09:20; Admin Dose 40 MG; Start 01/30/17 at 09:00 Hydralazine HCl (Apresoline) 50 mg BID PO Last administered on 02/01/17 09:19 ; Admin Dose 50 MG; Start 01/30/17 at 00:00 Isosorbide Mononitrate (Imdur) 60 mg DAILY PO Last administered on 02/01/17 09 :20; Admin Dose 60 MG; Start 01/30/17 at 09:00 Nifedipine (Procardia Xl) 30 mg DAILY PO Last administered on 02/01/17 09:20; Admin Dose 30 MG; Start 01/30/17 at 09:00 Prasugrel (Effient) 10 mg DAILY PO Last administered on 02/01/17 09:19; Admin Dose 10 MG; Start 01/30/17 at 09:00 Ropinirole HCl (Requip) 0.25 mg HS PO Last administered on 01/31/17 20:51; Admin Dose 0.25 MG; Start 01/30/17 at 21:00 Tamsulosin HCl (Flomax) 0.4 mg DAILY@21 PO Last administered on 01/31/17 20:50 ; Admin Dose 0.4 MG; Start 01/30/17 at 21:00 Fish Oil (Fish Oil) 1,000 mg BID PO Last administered on 02/01/17 09:20; Admin Dose 1,000 MG; Start 01/31/17 at 09:30 Atorvastatin Calcium (Lipitor) 10 mg QHS PO Last administered on 01/31/17 20: 51; Admin Dose 10 MG; Start 01/30/17 at 21:00 Multivit/Ca Carb/ B Cmplx/FA/Prenat (Paulina-Chrissy) 1 tab DAILY PO Last administered on 02/01/17 09:20; Admin Dose 1 TAB; Start 01/30/17 at 09:00 Carvedilol (Coreg) 3.125 mg BID PO Last administered on 02/01/17 09:19; Admin Dose 3.125 MG; Start 01/30/17 at 00:00 Miscellaneous Information 1 ea NOTE XX ; Start 01/30/17 at 01:00 Glucose (Glutose) 15 gm Q15M PRN PO DECREASED GLUCOSE; Start 01/30/17 at 01:00 Glucose (Glutose) 22.5 gm Q15M PRN PO DECREASED GLUCOSE; Start 01/30/17 at 01: 00 Dextrose (D50w Syringe) 25 ml Q15M PRN IV DECREASED GLUCOSE; Start 01/30/17 at 01:00 Dextrose (D50w Syringe) 50 ml Q15M PRN IV DECREASED GLUCOSE; Start 01/30/17 at 01:00 Glucagon (Glucagen) 1 mg Q15M PRN IM DECREASED GLUCOSE; Start 01/30/17 at 01:00 Glucose 15 gm 15 gm Q15M PRN BUCCAL DECREASED GLUCOSE; Start 01/30/17 at 01:00 Dextrose (D5W) 1,000 ml @ 50 mls/hr Q20H IV Last administered on 02/01/17t 02: 30; Admin Dose 50 MLS/HR; Start 01/30/17 at 10:30 Diagnostic Test (Pha) (Accu-Chek) 1 ea 02 XX ; Start 01/31/17 at 02:00 Diagnostic Test (Pha) (Accu-Chek) 1 ea 02 XX ; Start 01/31/17 at 02:00 ALICIA ISAACS NP Feb 01, 2017 13:28
--- NOTE | 2017-02-01 14:38 | PN ---
DATE: 02/01/2017 SUBJECTIVE DATA: The patient is stable. Had hemodialysis yesterday. No other events noted. No hemoptysis, hematemesis, hematochezia. OBJECTIVE DATA: VITAL SIGNS: Blood pressure 180/80, pulse 73, temperature 98.1. HEENT: Head is normocephalic. NECK: Supple. HEART: Regular rate. LUNGS: Diminished breath sounds at the base. ABDOMEN: Soft, nontender to palpation. No rebound or guarding. EXTREMITIES: Negative for clubbing, cyanosis. No edema. DERMATOLOGIC: No rashes. MUSCULOSKELETAL: No joint effusion. NEUROLOGIC: No focal deficits. MEDICATIONS: Reviewed. LABORATORY AND DIAGNOSTIC DATA: White count 6.2, hemoglobin 9.7, hematocrit 25.8, platelet count 103, sodium 133, potassium 4.2, BUN 40, creatinine 5.41. ASSESSMENT AND PLAN: 1. End-stage renal disease. Plan for hemodialysis tomorrow. We will dialyze 3 hours, 3K bath, calcium 2.5. 2. Hypokalemia, improved. 3. Mineral bone disorder. Monitor calcium and phosphorus levels. 4. Anemia monitor H and H levels. Give Epogen as needed. 5. History of congestive heart failure. Continue ultrafiltration with hemodialysis. 6. Hypertensive urgency. Continue current blood pressure regimen. Continue ultrafiltration with dialysis. 7. Pulmonary nodules. Continue to monitor. Dictated By: Arvind Galindo DO /waldo/radha /Document#: [id number]
[2017-02-01] MEDS: ROPINIROLE 0.25 MG TAB PO SCH (20:55)
[2017-02-01] MEDS: ATORVASTATIN 10 MG TAB PO SCH (20:55)
[2017-02-01] MEDS: TAMSULOSIN (SR) 0.4 MG CAP PO SCH (20:55)
[2017-02-01] MEDS: ONDANSETRON 4 MG INJ IV PRN (20:56)
[2017-02-02] VITALS (19 sets, daily range): BP systolic 96–167; BP diastolic 54–78; PULSE 70–87; RESP 17–20
[2017-02-02] MEDS: ACCU-CHEK XX SCH ×2 (00:56)
[2017-02-02] MEDS: INSULIN ASPART [NOVOLOG] 3 ML PEN SC SCH ×4 (08:00→21:00)
[2017-02-02 08:28] LABS: ABNORMAL IP MESSAGE 1; BASOPHILS % 0.1 % (0.0-2.0); EOSINOPHILS # 0.2 10^3/ul (0.0-0.5); EOSINOPHILS % 2.4 % (0.0-7.0); HEMATOCRIT 32.8 % (42.0-52.0); HEMOGLOBIN 10.8 g/dl (14.0-18.0); LYMPHOCYTES # 0.6 10^3/ul (0.8-2.9); LYMPHOCYTES % 8.2 % (15.0-51.0); MEAN CORPUSCULAR HEMOGLOBIN 34.3 pg (29.0-33.0); MEAN CORPUSCULAR HGB CONC 32.9 g/dl (32.0-37.0); MEAN CORPUSCULAR VOLUME 104.1 fl (82.0-101.0); MONOCYTE # 0.7 10^3/ul (0.3-0.9); MONOCYTES % 10.5 % (0.0-11.0); NEUTROPHIL # 5.6 10^3/ul (1.6-7.5); NEUTROPHILS % 78.7 % (39.0-77.0); PLATELET COUNT 109 10^3/UL (140-415); POSITIVE DIFF @See below; RED BLOOD COUNT 3.15 10^6/ul (4.70-6.10); RED CELL DISTRIBUTION WIDTH 13.9 % (11.5-14.5); WHITE BLOOD COUNT 7.1 10^3/ul (4.8-10.8)
[2017-02-02 08:54] LABS: CHOL/HDL RATIO 3.1 RATIO; MAGNESIUM 1.7 mg/dl (1.7-2.5); PHOSPHORUS 6.4 mg/dl (2.5-4.9)
[2017-02-02 08:59] LABS: CALCIUM 7.9 mg/dl (8.4-10.2); CREATININE 5.95 mg/dl (0.61-1.24); POTASSIUM 4.1 mmol/L (3.5-5.1)
[2017-02-02] MEDS: FISH OIL 1,000 MG CAP PO SCH ×2 (09:00→21:18)
[2017-02-02] MEDS: MULTIVIT/CA CARB/B CMPLX/FA TAB PO SCH (09:00)
[2017-02-02] MEDS: NIFEdipine (XL) 30 MG TAB PO SCH ×2 (09:00→21:18)
[2017-02-02] MEDS: FEBUXOSTAT 40 MG TABLET PO SCH (09:00)
[2017-02-02] MEDS: PRASUGREL HYDROCHLORIDE 10 MG TABLET PO SCH (09:00)
[2017-02-02] MEDS: ISOSORBIDE MONONITRATE(SR)60 MG TAB PO SCH (09:00)
[2017-02-02 09:22] LABS: THYROID STIMULATING HORMONE 0.862 MIU/L (0.465-4.680)
--- NOTE | 2017-02-02 13:03 | PN ---
Date/Time of Note Date/Time of Note DATE: 02/02/17 TIME: 13:01 Assessment/Plan VTE Prophylaxis VTE Prophylaxis Intervention: SCD's Lines/Catheters IV [facility]ter Type (from [facility]): Peripheral IV Urinary Cath still in place: No Assessment/Plan Chief Complaint/Hosp Course 1. Bilateral lower extremity weakness. Brain imaging studies negative for any acute findings. S/P physical therapy evaluation. Physical therapy recommending further rehabilitation. Will obtain Neurology consult for further evaluation. 2. End-stage renal disease on hemodialysis. Being followed by nephrology. 3. Essential hypertension. Continue antihypertensives. 4. Diabetes mellitus. Continue sliding scale insulin. 5. CAD. Continue antiplatelet therapy. 6. Dyslipidemia. Continue statins. 7. Anemia of chronic kidney disease. Monitor H&H closely. Off Epogen as per nephrology. 8. Fluids, electrolytes, and nutrition. Carbohydrate controlled, renal diet. 9. DVT prophylaxis. Bilateral sequential compression devices. 10. Plan. Continue current management. Obtain neurology consult. ARU evaluation. Case discussed with Dr. Willett. Problems: Subjective 24 Hr Interval Summary Free Text/Dictation Denies any pain. Vital signs stable. Exam/Review of Systems Vital Signs Vitals Vital Signs Date Time Temp Pulse Resp B/P Pulse Ox O2 Delivery O2 Flow Rate FiO2 02/02/17 12:28 87 02/02/17 11:47 98.7 17 165/67 93 Intake and Output 02/01/17 02/01/17 02/02/17 15:00 23:00 07:00 Intake Total 860 ml 432 ml Balance 860 ml 432 ml Exam General: Adequately build 81 year-old male lying in bed in no apparent distress. HEENT: Normocephalic, atraumatic. Eyes: Anicteric sclerae, conjunctivae clear. ENT: Nasal septum midline, oral mucosa moist. Neck supple, no JVD noticed. Respiratory: Bilaterally clear breath sounds. No use of accessory muscles of respiration. No adventitious breath sounds. Cardiovascular: S1, S2 heard. No murmurs or gallops. Abdomen: Soft, nontender, and nondistended. Bowel sounds positive in all 4 quadrants. Genitourinary: Deferred. Extremities: No cyanosis, no clubbing, no edema. Peripheral pulses palpable. Neurologic: Cranial nerves II through XII grossly intact. The patient is awake, alert, and oriented. B/L LE 3/5 strength. B/L UE 5/5 strength. Skin: Normal skin turgor. No skin rashes. Results Result Diagram: 02/02/17 0700 02/02/17 0700 Results 24 hrs Laboratory Tests Test 02/01/17 13:50 02/01/17 17:26 02/01/17 21:02 02/02/17 07:00 Bedside Glucose 204 148 152 White Blood Count 7.1 Red Blood Count 3.15 L Hemoglobin 10.8 L Hematocrit 32.8 L Mean Corpuscular Volume 104.1 H Mean Corpuscular Hemoglobin 34.3 H Mean Corpuscular Hemoglobin Concent 32.9 Red Cell Distribution Width 13.9 Platelet Count 109 L Mean Platelet Volume 11.0 H Neutrophils % 78.7 H Lymphocytes % 8.2 L Monocytes % 10.5 Eosinophils % 2.4 Basophils % 0.1 Nucleated Red Blood Cells % 0.0 Neutrophils # 5.6 Lymphocytes # 0.6 L Monocytes # 0.7 Eosinophils # 0.2 Basophils # 0.0 Nucleated Red Blood Cells # 0.0 Sodium Level 134 L Potassium Level 4.1 Chloride Level 99 Carbon Dioxide Level 24 Anion Gap 15 Blood Urea Nitrogen 48 H Creatinine 5.95 H Glucose Level 131 Calcium Level 7.9 L Phosphorus Level 6.4 H Magnesium Level 1.7 Triglycerides Level 63 Cholesterol Level 83 L LDL Cholesterol, Calculated 44 HDL Cholesterol 26 L Cholesterol/HDL Ratio 3.1 Thyroid Stimulating Hormone (TSH) 0.862 Free Thyroxine 1.62 Test 02/02/17 12:43 Bedside Glucose 134 Medications Medications Current Medications Ondansetron HCl (Zofran Inj) 4 mg Q6 PRN IV NAUSEA AND/OR VOMITING Last administered on 02/01/17 20:56; Admin Dose 4 MG; Start 01/30/17 at 00:00 Acetaminophen (Tylenol Tab) 650 mg Q6H PRN PO PAIN AND OR ELEVATED TEMP; Start 01/30/17 at 00:00 Clonidine (Catapres) 0.1 mg TID PRN PO FOR SBP >160 Last administered on 12:10; Admin Dose 0.1 MG; Start 01/30/17 at 00:00 Ergocalciferol (Drisdol) 50,000 unit Q7D PO Last administered on 02/01/17 09: 19; Admin Dose 50,000 UNIT; Start 02/01/17 at 09:00 Febuxostat (Uloric) 40 mg DAILY PO Last administered on 02/02/17 09:00; Admin Dose 40 MG; Start 01/30/17 at 09:00 Hydralazine HCl (Apresoline) 50 mg BID PO Last administered on 02/01/17 20:55 ; Admin Dose 50 MG; Start 01/30/17 at 00:00 Isosorbide Mononitrate (Imdur) 60 mg DAILY PO Last administered on 02/01/17 09 :20; Admin Dose 60 MG; Start 01/30/17 at 09:00 Prasugrel (Effient) 10 mg DAILY PO Last administered on 02/02/17 09:00; Admin Dose 10 MG; Start 01/30/17 at 09:00 Ropinirole HCl (Requip) 0.25 mg HS PO Last administered on 02/01/17 20:55; Admin Dose 0.25 MG; Start 01/30/17 at 21:00 Tamsulosin HCl (Flomax) 0.4 mg DAILY@21 PO Last administered on 02/01/17 20:55 ; Admin Dose 0.4 MG; Start 01/30/17 at 21:00 Fish Oil (Fish Oil) 1,000 mg BID PO Last administered on 02/02/17 09:00; Admin Dose 1,000 MG; Start 01/31/17 at 09:30 Atorvastatin Calcium (Lipitor) 10 mg QHS PO Last administered on 02/01/17 20: 55; Admin Dose 10 MG; Start 01/30/17 at 21:00 Multivit/Ca Carb/ B Cmplx/FA/Prenat (Paulina-Chrissy) 1 tab DAILY PO Last administered on 02/02/17 09:00; Admin Dose 1 TAB; Start 01/30/17 at 09:00 Carvedilol (Coreg) 3.125 mg BID PO Last administered on 02/01/17 20:55; Admin Dose 3.125 MG; Start 01/30/17 at 00:00 Miscellaneous Information 1 ea NOTE XX ; Start 01/30/17 at 01:00 Glucose (Glutose) 15 gm Q15M PRN PO DECREASED GLUCOSE; Start 01/30/17 at 01:00 Glucose (Glutose) 22.5 gm Q15M PRN PO DECREASED GLUCOSE; Start 01/30/17 at 01: 00 Dextrose (D50w Syringe) 25 ml Q15M PRN IV DECREASED GLUCOSE; Start 01/30/17 at 01:00 Dextrose (D50w Syringe) 50 ml Q15M PRN IV DECREASED GLUCOSE; Start 01/30/17 at 01:00 Glucagon (Glucagen) 1 mg Q15M PRN IM DECREASED GLUCOSE; Start 01/30/17 at 01:00 Glucose 15 gm 15 gm Q15M PRN BUCCAL DECREASED GLUCOSE; Start 01/30/17 at 01:00 Dextrose (D5W) 1,000 ml @ 50 mls/hr Q20H IV Last administered on 02/01/17 21: 03; Admin Dose 50 MLS/HR; Start 01/30/17 at 10:30 Diagnostic Test (Pha) (Accu-Chek) 1 ea 02 XX ; Start 01/31/17 at 02:00 Diagnostic Test (Pha) (Accu-Chek) 1 ea 02 XX ; Start 01/31/17 at 02:00 Nifedipine (Procardia Xl) 30 mg BID PO Last administered on 02/01/17 20:54; Admin Dose 30 MG; Start 02/01/17 at 21:00 ALICIA ISAACS NP Feb 02, 2017 13:03
[2017-02-02] MEDS: DEXAMETHASONE 4 MG/ML 1 ML INJ IV SCH (20:20)
[2017-02-02] MEDS: ROPINIROLE 0.25 MG TAB PO SCH (21:18)
[2017-02-02] MEDS: TAMSULOSIN (SR) 0.4 MG CAP PO SCH (21:18)
[2017-02-02] MEDS: ATORVASTATIN 10 MG TAB PO SCH (21:18)
--- NOTE | 2017-02-02 21:23 | CONS ---
DATE OF ADMISSION: 01/29/2017 DATE OF CONSULTATION: 02/02/2017 HISTORY OF PRESENT ILLNESS: Patient is an 81-year-old gentleman with past medical history of hypertension, dyslipidemia, end- stage renal disease, congestive heart failure, who on the day of admission, 01/29/2017, when had to be picked up to be taken to hemodialysis, noticed that he is not able to stand on his legs. Complaining of lower extremity weakness and numbness. He stated that since admission, the weakness has been relatively stable, not getting any better or worse, as well as numbness. He complains of urinary incontinence and also some diarrhea, with fecal incontinence and also lower back pain. No complaints of upper extremity problems. On admission, patient had CAT scan of the head, which did not show any acute abnormality. His labs show normal CK level. On admission he was hyperkalemic, at 6.1. Again, patient stated that his symptoms started acutely and were not gradually worsening. MEDICATION: 1. Nifedipine. 2. Drisdol. 3. Feosol. 4. Requip 0.25 at bedtime. 5. Flomax. 6. Lipitor. 7. Insulin. 8. Imdur. 9. Uloric. 10. Effient. ALLERGIES: NONE. SOCIAL HISTORY: No drug use. Everyday smoker. FAMILY HISTORY: Not contributory. PHYSICAL EXAMINATION: VITAL SIGNS: On examination today, vitals 97.9 temperature, pulse 81, 18 respirations, 96/61 blood pressure. GENERAL APPEARANCE: Not in acute distress, lying in bed. HEENT: Normocephalic, atraumatic head. NECK: No carotid bruits. No thyromegaly. LUNGS: Clear to auscultation bilaterally. HEART: Normal cardiac rhythm and sounds. ABDOMEN: Soft, nontender. EXTREMITIES: No cyanosis, clubbing, or edema. NEUROLOGIC: He is awake, alert, and oriented x3, with fluent speech. Cranial nerve examination was intact. Visual calloway bilaterally, pupils are reactive from 3-2 mm. Extraocular movements intact, without nystagmus. Symmetrical face. Preserved facial strength and sensation. Tongue was in midline. Palate elevates symmetrically. Motor strength examination seemed to be preserved in upper extremities, 5/5, normal bulk, tone. Lower extremities are weaker, about 3/5, maybe slightly worse distally. Sensory examination shows diminution of guest relations receptionist of pinprick in glove distribution in the hands and diminished pinprick in bilateral lower extremities to the level of lower abdomen. Patient is not completely consistent and at times, he states that he feels number in the private areas, at times he feels okay. Coordination preserved on [id number] testing. No dysmetria or tremor. I was not able to obtain any tenderness to palpation over spinous processes in thoracic or lumbar spine. Patient has reflexes 2+ in the upper extremities and knees. Ankle jerks slightly less brisk, about 1+. No definite response to plantar stimulation. IMPRESSION: Acute lower extremity weakness, most likely related to spinal cord compression. Important to exclude thoracic myelopathy versus conus medullaris syndrome, less likely cauda equina, given symmetrical presentation. I will obtain stat MRI of the thoracic spine, as well as lumbar spine. Symptom started 4 days ago. It has been stable. While waiting for test results, I will start Decadron 4 mg q.6 IV, which could be discontinued if no cord compression found. I do not think that patient has Guillain-[place] syndrome, given the acute onset of the problem, as well as no complaints and symptoms in the upper extremities. Thank you very much for this interesting consultation. Dictated By: Rene Paulino MD /waldo/robbie /Document#: [id number] MANDY
[2017-02-03] VITALS (12 sets, daily range): BP systolic 127–196; BP diastolic 57–95; PULSE 69–95; RESP 17–20
[2017-02-03] MEDS: DEXAMETHASONE 4 MG/ML 1 ML INJ IV SCH ×3 (00:15→12:14)
[2017-02-03] MEDS: ACCU-CHEK XX SCH ×2 (00:18)
--- NOTE | 2017-02-03 02:08 | RADRPT ---
PROCEDURE: CT thoracic spine without contrast. CLINICAL INDICATION: Back pain and extremity weakness. TECHNIQUE: CT scan of the thoracic spine was performed on a multi-detector high-resolution CT [facility]. Contiguous axial images were obtained without intravenous contrast. Coronal and sagittal ref ormatted images were also obtained. Images were reviewed on the PACS workstation. One or more of the following dose reduction techniques were used: - Automated exposure control. - Adjustment of the mA and/or kV according to patient size. - Use of iterative reconstruction technique. Exam CTD/vol = 27.47 mGy. Total exam DLP = 1259.70 mGy-cm. COMPARISON: None. FINDINGS: There is no acute fracture or subluxation. Thoracic vertebral body heights and alignment are otherw ise within normal limits. There is mild to moderate diffuse disc space narrowing especially within the mid-thoracic spine. There is no central canal or neural foraminal stenosis. There are tiny mar ginal osteophytes at multiple levels. There is no paraspinal mass or collection. There are atheroscl erotic calcifications of the aorta. There is mild bibasilar atelectasis and small left pleural effus ion. IMPRESSION: No acute fracture or subluxation. Mild to moderate multilevel degenerative disc disease. Aortic atherosclerosis. Mild bibasilar atelectasis and small left pleural effusion. .Taiwo Arauz MD, MD Date Time Electronically viewed and signed by .Taiwo Arauz MD, MD on 02/03/2017 02:07 .T/
--- NOTE | 2017-02-03 02:13 | RADRPT ---
PROCEDURE: CT Lumbar Spine without contrast. CLINICAL INDICATION: Back pain. TECHNIQUE: CT scan of the lumbar spine was performed [facility] Contiguous axial images were obtained without intravenous contrast. Coronal and sagittal refor matted images were also obtained. Images were reviewed on the PACS workstation. One or more of the following dose reduction techniques were used: - Automated exposure control. - Adjustment of the mA and/or kV according to patient size. - Use of iterative reconstruction technique. Exam CTD/vol = 34.10 mGy. Total exam DLP = 1260.26 mGy-cm. COMPARISON: None. FINDINGS: Lumbar vertebral body heights and alignment are within normal limits. There is no acute fracture or subluxation. At T12-L1, the disk height is within normal limits. There is no central canal or neural foraminal s tenosis. At L1-L2, the disk height is within normal limits. There is no central canal or neural foraminal st enosis. At L2-L3, there is mild loss of disc height and air vacuum phenomenon. There is a mild diffuse disc osteophyte complex which combined with mild bilateral facet and ligamentum flavum hypertrophy result s in mild central canal stenosis. There is no neural foraminal stenosis. At L3-L4, there is moderate loss of disc height and air vacuum phenomenon. There is a mild to moder ate diffuse disc osteophyte complex which combined with mild bilateral facet and ligamentum flavum h ypertrophy results in mild to moderate central canal stenosis. There is mild bilateral foraminal chelsea nosis. At L4-L5, there is mild to mild loss of disc height and air vacuum phenomenon. There is a moderate d iffuse disc osteophyte complex which combined with moderate bilateral facet and ligamentum flavum hy pertrophy results in moderate to severe central canal stenosis. There is severe right and moderate left neural foraminal stenosis. At L5-S1, there is moderate loss of disc height and a mild diffuse disc osteophyte complex. There i s no central canal stenosis. There is moderate bilateral neural foraminal stenosis. There is no paraspinal mass or collection. There is mild bibasilar atelectasis and small left pleura l effusion. There are atherosclerotic calcifications of the abdominal aorta. There are stents within bilateral common iliac arteries. There is a left posterior bladder diverticulum. The prostate is en larged. IMPRESSION: No acute fracture or subluxation. Mild to moderate multilevel degenerative disc disease. There is multilevel central canal and neural foraminal stenosis as described. Aortic atherosclerosis. Bladder diverticulum. Enlarged prostate. .Taiwo Arauz MD, Date Time Electronically viewed and signed by .Taiwo Arauz MD, on 02/03/2017 02:12 .T/
--- NOTE | 2017-02-03 07:29 | PN ---
DATE: 02/02/2017 SUBJECTIVE DATA: The patient is stable. Hemodialysis yesterday, tolerated well. No other events noted. OBJECTIVE DATA: VITAL SIGNS: Blood pressure 129/54, respirations 18, pulse 78, and temperature 97.6. HEENT: Head is normocephalic. NECK: Supple. HEART: Regular rate. LUNGS: Diminished breath sounds base. ABDOMEN: Soft, nontender to palpation. No rebound or guarding. EXTREMITIES: Negative for clubbing, cyanosis. No edema. DERMATOLOGIC: No rashes. MUSCULOSKELETAL: No joint effusion. NEUROLOGIC: No change in exam. MEDICATIONS: Reviewed. LABORATORY AND DIAGNOSTIC DATA: Sodium 134, BUN 48, creatinine 5.95. White count 7.1, hemoglobin 10.2, hematocrit 30.8, and platelet count is 109. ASSESSMENT AND PLAN: 1. End-stage renal disease. The patient on hemodialysis, tolerating well. 2. Hypokalemia, improved. 3. Hyponatremia, in part due to D5 water IV drip. Recommend discontinue D5 water per primary team. 4. Mineral bone disorder. Monitor calcium and phosphorus levels. 5. Anemia. Monitor H and H levels. We will give Epogen as needed. 6. History of congestive heart failure. Continue ultrafiltration with hemodialysis. 7. Hypertension. Continue current blood pressure regimen. 8. Pulmonary nodules. Continue to monitor. 9. Diabetes. Continue current insulin regimen. 10. Coronary artery disease. Continue medical management. Dictated By: Arvind Galindo DO /waldo/marcin /Document#: [id number]
[2017-02-03] MEDS: INSULIN ASPART [NOVOLOG] 3 ML PEN SC SCH ×5 (08:00→20:23)
[2017-02-03 08:46] LABS: ABNORMAL IP MESSAGE 1; BASOPHILS % 0.2 % (0.0-2.0); EOSINOPHILS % 0.2 % (0.0-7.0); HEMATOCRIT 37.9 % (42.0-52.0); HEMOGLOBIN 12.3 g/dl (14.0-18.0); LYMPHOCYTES # 0.4 10^3/ul (0.8-2.9); LYMPHOCYTES % 6.2 % (15.0-51.0); MEAN CORPUSCULAR HEMOGLOBIN 33.7 pg (29.0-33.0); MEAN CORPUSCULAR HGB CONC 32.5 g/dl (32.0-37.0); MEAN CORPUSCULAR VOLUME 103.8 fl (82.0-101.0); MEAN PLATELET VOLUME 10.8 fl (7.4-10.4); MONOCYTE # 0.1 10^3/ul (0.3-0.9); MONOCYTES % 1.7 % (0.0-11.0); NEUTROPHIL # 5.8 10^3/ul (1.6-7.5); NEUTROPHILS % 91.2 % (39.0-77.0); PLATELET COUNT 111 10^3/UL (140-415); POSITIVE DIFF @See below; RED BLOOD COUNT 3.65 10^6/ul (4.70-6.10); RED CELL DISTRIBUTION WIDTH 13.8 % (11.5-14.5); WHITE BLOOD COUNT 6.3 10^3/ul (4.8-10.8)
[2017-02-03] MEDS: PRASUGREL HYDROCHLORIDE 10 MG TABLET PO SCH (08:57)
[2017-02-03] MEDS: FISH OIL 1,000 MG CAP PO SCH ×2 (08:57→20:15)
[2017-02-03] MEDS: ISOSORBIDE MONONITRATE(SR)60 MG TAB PO SCH (08:57)
[2017-02-03] MEDS: FEBUXOSTAT 40 MG TABLET PO SCH (08:58)
[2017-02-03] MEDS: NIFEdipine (XL) 30 MG TAB PO SCH ×2 (08:58→20:20)
[2017-02-03] MEDS: MULTIVIT/CA CARB/B CMPLX/FA TAB PO SCH (08:58)
[2017-02-03 09:09] LABS: POTASSIUM 4.8 mmol/L (3.5-5.1)
[2017-02-03 09:10] LABS: CALCIUM 8.7 mg/dl (8.4-10.2); CREATININE 5.46 mg/dl (0.61-1.24)
--- NOTE | 2017-02-03 10:37 | PN ---
DATE: 02/03/2017 SUBJECTIVE DATA: The patient is stable. No events overnight. No fevers, chills, nausea, vomiting. OBJECTIVE DATA: VITAL SIGNS: Blood pressure 151/67, respirations 18, pulse 84, temperature 98.4. HEENT: Head is normocephalic. NECK: Supple. HEART: Regular rate. LUNGS: Show diminished breath sounds at the base. ABDOMEN: Soft, nontender to palpation. No rebound or guarding. EXTREMITIES: Negative for clubbing, cyanosis. No edema. DERMATOLOGIC: Clean. No rashes. MUSCULOSKELETAL: No joint effusion. NEUROLOGIC: No change in exam. MEDICATIONS: Reviewed. LABORATORY AND DIAGNOSTIC DATA: Shows white count 6.3, hemoglobin 12.3, crit 37.9, platelet count is 111. Sodium 137, potassium 4.8, BUN 51, creatinine 5.46. ASSESSMENT AND PLAN: 1. End-stage renal disease. Plan for hemodialysis tomorrow. 2. Hypokalemia, improved. 3. Hyponatremia, resolved. D5W has been discontinued. 4. Mineral bone disorder. Continue to monitor calcium and phosphorus levels. 5. Anemia. Monitor H and H levels. 6. Acute congestive heart failure. Continue ultrafiltration dialysis. 7. Hypertension. Continue current blood pressure regimen. 8. Diabetes. Continue Accu-Cheks and insulin sliding scale. 9. Coronary artery disease. Continue current treatment plan. 10. Lower extremity weakness. Etiology is possibly due to spinal cord compression. Follow up with Neurology. Dictated By: Arvind Galindo DO /waldo/eris /Document#: [id number]
--- NOTE | 2017-02-03 11:58 | PN ---
Date/Time of Note Date/Time of Note DATE: 02/03/17 TIME: 11:55 Assessment/Plan VTE Prophylaxis VTE Prophylaxis Intervention: SCD's Lines/Catheters IV [facility] Type (from [facility] [place] Urinary Cath still in place: No Assessment/Plan Chief Complaint/Hosp Course 1. Bilateral lower extremity weakness. Brain imaging studies negative for any acute findings. S/P physical therapy evaluation. Physical therapy recommending further rehabilitation. Was started on IV steroids by Neurology. Lumbar spine CT showing multilevel central canal and neural foraminal stenosis. Plan for lumbar puncture. 2. End-stage renal disease on hemodialysis. Being followed by nephrology. 3. Essential hypertension. Continue antihypertensives. 4. Diabetes mellitus. Continue sliding scale insulin. 5. CAD. Continue antiplatelet therapy. 6. Dyslipidemia. Continue statins. 7. Anemia of chronic kidney disease. Monitor H&H closely. Off Epogen as per nephrology. 8. Fluids, electrolytes, and nutrition. Carbohydrate controlled, renal diet. 9. DVT prophylaxis. Bilateral sequential compression devices. 10. Plan. Continue further recommendations from Neurology. Case discussed with Dr. Willett. 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 Patient still has B/L LE weakness. Exam/Review of Systems Vital Signs Vitals Vital Signs Date Time Temp Pulse Resp B/P Pulse Ox O2 Delivery O2 Flow Rate FiO2 02/03/17 08:34 80 02/03/17 04:23 98.4 18 151/67 93 Intake and Output 02/02/17 02/02/17 02/03/17 15:00 23:00 07:00 Intake Total 500 ml 160 ml 60 ml Output Total 3500 ml 350 ml Balance -3000 ml 160 ml -290 ml Exam General: Adequately build 81 year-old male lying in bed in no apparent distress. HEENT: Normocephalic, atraumatic. Eyes: Anicteric sclerae, conjunctivae clear. ENT: Nasal septum midline, oral mucosa moist. Neck supple, no JVD noticed. Respiratory: Bilaterally clear breath sounds. No use of accessory muscles of respiration. No adventitious breath sounds. Cardiovascular: S1, S2 heard. No murmurs or gallops. Abdomen: Soft, nontender, and nondistended. Bowel sounds positive in all 4 quadrants. Genitourinary: Deferred. Extremities: No cyanosis, no clubbing, no edema. Peripheral pulses palpable. Neurologic: Cranial nerves II through XII grossly intact. The patient is awake, alert, and oriented. B/L LE 3/5 strength. B/L UE 5/5 strength. Skin: Normal skin turgor. No skin rashes. Results Result Diagram: 02/03/17 0831 02/03/17 0831 Results 24 hrs Laboratory Tests Test 02/02/17 12:43 02/02/17 17:33 02/02/17 21:21 02/03/17 08:31 Bedside Glucose 134 93 105 White Blood Count 6.3 Red Blood Count 3.65 L Hemoglobin 12.3 L Hematocrit 37.9 L Mean Corpuscular Volume 103.8 H Mean Corpuscular Hemoglobin 33.7 H Mean Corpuscular Hemoglobin Concent 32.5 Red Cell Distribution Width 13.8 Platelet Count 111 L Mean Platelet Volume 10.8 H Neutrophils % 91.2 H Lymphocytes % 6.2 L Monocytes % 1.7 Eosinophils % 0.2 Basophils % 0.2 Nucleated Red Blood Cells % 0.0 Neutrophils # 5.8 Lymphocytes # 0.4 L Monocytes # 0.1 L Eosinophils # 0.0 Basophils # 0.0 Nucleated Red Blood Cells # 0.0 Sodium Level 137 Potassium Level 4.8 Chloride Level 100 Carbon Dioxide Level 25 Anion Gap 17 H Blood Urea Nitrogen 51 H Creatinine 5.46 H Glucose Level 156 Calcium Level 8.7 Magnesium Level 2.0 Test 02/03/17 08:46 Bedside Glucose 147 Medications Medications Current Medications Ondansetron HCl (Zofran Inj) 4 mg Q6 PRN IV NAUSEA AND/OR VOMITING Last administered on 02/01/17 20:56; Admin Dose 4 MG; Start 01/30/17 at 00:00 Acetaminophen (Tylenol Tab) 650 mg Q6H PRN PO PAIN AND OR ELEVATED TEMP; Start 01/30/17 at 00:00 Clonidine (Catapres) 0.1 mg TID PRN PO FOR SBP >160 Last administered on 12:10; Admin Dose 0.1 MG; Start 01/30/17 at 00:00 Ergocalciferol (Drisdol) 50,000 unit Q7D PO Last administered on 02/01/17 09: 19; Admin Dose 50,000 UNIT; Start 02/01/17 at 09:00 Febuxostat (Uloric) 40 mg DAILY PO Last administered on 02/03/17 08:58; Admin Dose 40 MG; Start 01/30/17 at 09:00 Hydralazine HCl (Apresoline) 50 mg BID PO Last administered on 02/03/17 08:49 ; Admin Dose 50 MG; Start 01/30/17 at 00:00 Isosorbide Mononitrate (Imdur) 60 mg DAILY PO Last administered on 02/03/17 08 :57; Admin Dose 60 MG; Start 01/30/17 at 09:00 Prasugrel (Effient) 10 mg DAILY PO Last administered on 02/03/17 08:57; Admin Dose 10 MG; Start 01/30/17 at 09:00 Ropinirole HCl (Requip) 0.25 mg HS PO Last administered on 02/02/17 21:18; Admin Dose 0.25 MG; Start 01/30/17 at 21:00 Tamsulosin HCl (Flomax) 0.4 mg DAILY@21 PO Last administered on 02/02/17 21:18 ; Admin Dose 0.4 MG; Start 01/30/17 at 21:00 Fish Oil (Fish Oil) 1,000 mg BID PO Last administered on 02/03/17 08:57; Admin Dose 1,000 MG; Start 01/31/17 at 09:30 Atorvastatin Calcium (Lipitor) 10 mg QHS PO Last administered on 02/02/17 21: 18; Admin Dose 10 MG; Start 01/30/17 at 21:00 Multivit/Ca Carb/ B Cmplx/FA/Prenat (Paulina-Chrissy) 1 tab DAILY PO Last administered on 02/03/17 08:58; Admin Dose 1 TAB; Start 01/30/17 at 09:00 Carvedilol (Coreg) 3.125 mg BID PO Last administered on 02/03/17 08:57; Admin Dose 3.125 MG; Start 01/30/17 at 00:00 Miscellaneous Information 1 ea NOTE XX ; Start 01/30/17 at 01:00 Glucose (Glutose) 15 gm Q15M PRN PO DECREASED GLUCOSE; Start 01/30/17 at 01:00 Glucose (Glutose) 22.5 gm Q15M PRN PO DECREASED GLUCOSE; Start 01/30/17 at 01: 00 Dextrose (D50w Syringe) 25 ml Q15M PRN IV DECREASED GLUCOSE; Start 01/30/17 at 01:00 Dextrose (D50w Syringe) 50 ml Q15M PRN IV DECREASED GLUCOSE; Start 01/30/17 at 01:00 Glucagon (Glucagen) 1 mg Q15M PRN IM DECREASED GLUCOSE; Start 01/30/17 at 01:00 Glucose (Glutose) 15 gm Q15M PRN BUCCAL DECREASED GLUCOSE; Start 01/30/17 at 01 :00 Diagnostic Test (Pha) (Accu-Chek) 1 ea 02 XX ; Start 01/31/17 at 02:00 Diagnostic Test (Pha) (Accu-Chek) 1 ea 02 XX ; Start 01/31/17 at 02:00 Nifedipine (Procardia Xl) 30 mg BID PO Last administered on 02/03/17 08:58; Admin Dose 30 MG; Start 02/01/17 at 21:00 Dexamethasone (Decadron) 4 mg Q6 IV Last administered on 02/03/17 06:42; Admin Dose 4 MG; Start 02/02/17 at 19:30 ALICIA ISAACS NP Feb 03, 2017 11:58
--- NOTE | 2017-02-03 12:27 | RADRPT ---
PROCEDURE: MRI thoracic spine without contrast CLINICAL INDICATION: Back pain TECHNIQUE: Multiplanar MRI of the thoracic spine without contrast was performed on a 3.0 T scanner utilizing the following sequences: T1-weighted, T2-weighted, GRE. COMPARISON: Thoracic spine CT 02/03/2017 FINDINGS: Evaluation is somewhat limited due to patient motion related artifacts. No fracture or destructive o sseous lesion is seen. A small probable hemangioma is noted in the T11 body. There is relative exagg eration of the kyphosis of the thoracic spine without spondylolisthesis seen in the thoracic region. There are multilevel anterior osteophytes. Vertebral bodies are grossly maintained in height. There is multilevel disc space narrowing which appears more pronounced, moderate - severe at T2-3 through T9-10. Minimal posterior disc osteophytes are seen at T3-4, T5-6 and T6-7. No central canal stenosi s is identified. Facet arthropathy seen at T5-6 on the right. No high-grade foraminal narrowing is s een. The cord is not well assessed due to motion artifacts. No gross cord signal abnormality is seen . Noted are multiple cysts in the right kidney. IMPRESSION: 1. Somewhat limited evaluation due to motion. 2. Multilevel thoracic spondylosis/degenerative enthesopathy, without central canal stenosis. RPTAT: VV .Mac Zepeda MD, Date Time Electronically viewed and signed by .Mac Zepeda MD, MD on 02/03/2017 12:27 .O/
--- NOTE | 2017-02-03 13:53 | CONS ---
Date/Time of Note Date/Time of Note DATE: 02/03/17 TIME: 13:46 Consult Date/Type/Reason Admit Date/Time Jan 29, 2017 at 19:38 Initial Consult Date 01/30/17 Subjective Started on decadron yesterday, feels slightly stronger? still incontinence. Also yesterday was c/o seeing some bearded people,? he thionks that hallucinated briefly, even before stroids given, no hallucinations today. MRI T-L-S spine no report yet, d/w dr Riley, movement artifacts, no mass effect, no cord compression. Pt's son confirmed the story of acute onset lower extr weakness, numbness; as I was not sure how good historian Pt is. Objective Vital Signs Date Time Temp Pulse Resp B/P Pulse Ox O2 Delivery O2 Flow Rate FiO2 02/03/17 12:59 97.3 66 18 127/57 98 Intake and Output 02/02/17 02/02/17 02/03/17 15:00 23:00 07:00 Intake Total 500 ml 160 ml 60 ml Output Total 3500 ml 350 ml Balance -3000 ml 160 ml -290 ml Results/Medications Result Diagram: 02/03/17 0831 02/03/17 0831 Results 24 hrs Laboratory Tests Test 02/02/17 17:33 02/02/17 21:21 02/03/17 08:31 02/03/17 08:46 Bedside Glucose 93 105 147 White Blood Count 6.3 Red Blood Count 3.65 L Hemoglobin 12.3 L Hematocrit 37.9 L Mean Corpuscular Volume 103.8 H Mean Corpuscular Hemoglobin 33.7 H Mean Corpuscular Hemoglobin Concent 32.5 Red Cell Distribution Width 13.8 Platelet Count 111 L Mean Platelet Volume 10.8 H Neutrophils % 91.2 H Lymphocytes % 6.2 L Monocytes % 1.7 Eosinophils % 0.2 Basophils % 0.2 Nucleated Red Blood Cells % 0.0 Neutrophils # 5.8 Lymphocytes # 0.4 L Monocytes # 0.1 L Eosinophils # 0.0 Basophils # 0.0 Nucleated Red Blood Cells # 0.0 Sodium Level 137 Potassium Level 4.8 Chloride Level 100 Carbon Dioxide Level 25 Anion Gap 17 H Blood Urea Nitrogen 51 H Creatinine 5.46 H Glucose Level 156 Calcium Level 8.7 Magnesium Level 2.0 Test 02/03/17 12:09 Bedside Glucose 246 H Medications Current Medications Ondansetron HCl (Zofran Inj) 4 mg Q6 PRN IV NAUSEA AND/OR VOMITING Last administered on 02/01/17 20:56; Admin Dose 4 MG; Start 01/30/17 at 00:00 Acetaminophen (Tylenol Tab) 650 mg Q6H PRN PO PAIN AND OR ELEVATED TEMP; Start 01/30/17 at 00:00 Clonidine (Catapres) 0.1 mg TID PRN PO FOR SBP >160 Last administered on 12:10; Admin Dose 0.1 MG; Start 01/30/17 at 00:00 Ergocalciferol (Drisdol) 50,000 unit Q7D PO Last administered on 02/01/17 09: 19; Admin Dose 50,000 UNIT; Start 02/01/17 at 09:00 Febuxostat (Uloric) 40 mg DAILY PO Last administered on 02/03/17 08:58; Admin Dose 40 MG; Start 01/30/17 at 09:00 Hydralazine HCl (Apresoline) 50 mg BID PO Last administered on 02/03/17 08:49 ; Admin Dose 50 MG; Start 01/30/17 at 00:00 Isosorbide Mononitrate (Imdur) 60 mg DAILY PO Last administered on 02/03/17 08 :57; Admin Dose 60 MG; Start 01/30/17 at 09:00 Prasugrel (Effient) 10 mg DAILY PO Last administered on 02/03/17 08:57; Admin Dose 10 MG; Start 01/30/17 at 09:00 Ropinirole HCl (Requip) 0.25 mg HS PO Last administered on 02/02/17 21:18; Admin Dose 0.25 MG; Start 01/30/17 at 21:00 Tamsulosin HCl (Flomax) 0.4 mg DAILY@21 PO Last administered on 02/02/17 21:18 ; Admin Dose 0.4 MG; Start 01/30/17 at 21:00 Fish Oil (Fish Oil) 1,000 mg BID PO Last administered on 02/03/17 08:57; Admin Dose 1,000 MG; Start 01/31/17 at 09:30 Atorvastatin Calcium (Lipitor) 10 mg QHS PO Last administered on 02/02/17 21: 18; Admin Dose 10 MG; Start 01/30/17 at 21:00 Multivit/Ca Carb/ B Cmplx/FA/Prenat (Paulina-Chrissy) 1 tab DAILY PO Last administered on 02/03/17 08:58; Admin Dose 1 TAB; Start 01/30/17 at 09:00 Carvedilol (Coreg) 3.125 mg BID PO Last administered on 02/03/17 08:57; Admin Dose 3.125 MG; Start 01/30/17 at 00:00 Miscellaneous Information 1 ea NOTE XX ; Start 01/30/17 at 01:00 Glucose (Glutose) 15 gm Q15M PRN PO DECREASED GLUCOSE; Start 01/30/17 at 01:00 Glucose (Glutose) 22.5 gm Q15M PRN PO DECREASED GLUCOSE; Start 01/30/17 at 01: 00 Dextrose (D50w Syringe) 25 ml Q15M PRN IV DECREASED GLUCOSE; Start 01/30/17 at 01:00 Dextrose (D50w Syringe) 50 ml Q15M PRN IV DECREASED GLUCOSE; Start 01/30/17 at 01:00 Glucagon (Glucagen) 1 mg Q15M PRN IM DECREASED GLUCOSE; Start 01/30/17 at 01:00 Glucose (Glutose) 15 gm Q15M PRN BUCCAL DECREASED GLUCOSE; Start 01/30/17 at 01 :00 Diagnostic Test (Pha) (Accu-Chek) 1 ea 02 XX ; Start 01/31/17 at 02:00 Diagnostic Test (Pha) (Accu-Chek) 1 ea 02 XX ; Start 01/31/17 at 02:00 Nifedipine (Procardia Xl) 30 mg BID PO Last administered on 02/03/17 08:58; Admin Dose 30 MG; Start 02/01/17 at 21:00 Dexamethasone (Decadron) 4 mg Q6 IV Last administered on 02/03/17 12:14; Admin Dose 4 MG; Start 02/02/17 at 19:30 Assessment/Plan Chief Complaint/Hosp Course NEUROLOGIC: He is awake, alert, and oriented x3, with fluent speech. Cranial nerve examination was intact. Visual calloway bilaterally, pupils are reactive from 3-2 mm. Extraocular movements intact, without nystagmus. Symmetrical face. Preserved facial strength and sensation. Tongue was in midline. Palate elevates symmetrically. Motor strength examination seemed to be preserved in upper extremities, 5/5, normal bulk, tone. Lower extremities are weaker, about 3/5, maybe slightly worse distally. Sensory examination shows diminution of hat trimmer of pinprick in glove distribution in the hands and diminished pinprick in bilateral lower extremities to the level of lower abdomen. Coordination preserved on [id number] testing. No dysmetria or tremor. I was not able to obtain any tenderness to palpation over spinous processes in thoracic or lumbar spine. Patient has reflexes 2+ in the upper extremities and knees. No ankle jerks. No definite response to plantar stimulation. 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 Unclear etiology. Myerlitis? Will do LP. Give solumedrol 10-00 mg IV x 3 days. Needs PT, possible rehab? Thank you very much for this interesting consultation. Problems: MEGGAN SMITH MD Feb 03, 2017 13:53
[2017-02-03] MEDS ORDERED: METHYLPRED. NA SUCC 1,000 MG in DEXTROSE 5% 50 ML IVPB SCH (14:00)
[2017-02-03] MEDS: METHYLPRED. NA SUCC 1,000 MG in DEXTROSE 5% 50 ML IVPB SCH (15:27)
[2017-02-03] MEDS: NICOTINE (7 MG/24 HR) PATCH TRANSDERM SCH (15:27)
[2017-02-03] MEDS: ATORVASTATIN 10 MG TAB PO SCH (20:15)
[2017-02-03] MEDS: TAMSULOSIN (SR) 0.4 MG CAP PO SCH (20:15)
[2017-02-03] MEDS: ROPINIROLE 0.25 MG TAB PO SCH (20:16)
[2017-02-04] VITALS (19 sets, daily range): BP systolic 117–169; BP diastolic 44–81; PULSE 76–94; RESP 18–21
[2017-02-04] MEDS: ACCU-CHEK XX SCH (02:27)
--- NOTE | 2017-02-04 07:38 | RADRPT ---
PROCEDURE: MRI lumbar spine without contrast CLINICAL INDICATION: Acute paraparesis. Loss of feeling of both legs 5 days ago. TECHNIQUE: Sagittal T1, T2, and STIR, axial T1 and T2-weighted images without contrast. COMPARISON: CT from 02/03/2017 FINDINGS: Alignment is anatomic. Vertebral body heights are preserved. No evidence for bony metastatic disease . motion artifact again limits evaluation of the distal cord. The conus ends at the L1 level. There is a suggestion of slight increased signal in the distal cord at the T11-12 level but this was not c learly the case on the thoracic spine MRI from the same day. The study was also limited by motion, h owever. Significant distension of the urinary bladder is again seen. Multiple presumed renal cysts. At T11-12, no disk protrusion or extrusion is seen. No canal stenosis or significant foraminal narr owing. At T12-L1, no disk protrusion or extrusion is seen. No canal stenosis or significant foraminal narr owing. At L1-2, no disk protrusion or extrusion is seen. No canal stenosis or significant foraminal narrow ing. At L2-3, minimal disc space narrowing is seen. Tiny central disc bulge with minimal facet and ligame ntous hypertrophic changes contributing to slight bilateral foraminal narrowing. At L3-4, small diffuse disc bulge/protrusion without extrusion. Mild facet and ligamentous hypertrop hic changes with slight bilateral foraminal narrowing. At L4-5, there is a broad-based moderately large disc bulge with central disc protrusion without ext rusion. Short pedicles and prominent facet and ligamentous hypertrophic changes are seen and contrib gila to tight bilateral foraminal narrowing and slight central canal narrowing without nivia spinal s tenosis. At L5-S1, small to moderate diffuse disc bulge is seen with facet and ligamentous hypertrophic avila es contributing to slight bilateral foraminal narrowing. Small incidental sacral perineural cyst is seen at the S2 level. IMPRESSION: Multilevel lumbar spondylosis with multilevel foraminal narrowing as described. No evidence for frac ture or metastatic disease. Suggestion of increased central canal signal of the distal cord on the s agittal images. This was not clearly seen on the thoracic spine MRI although both studies are limite d by patient motion. If symptoms persist, repeat thoracic MRI either with sedation or when the patie nt is able to hold still may be helpful. RPTAT: HLBE Amie Person, Physician Date Time Electronically viewed and signed by Amie Person, Physician on 02/04/2017 07:38 LE/
[2017-02-04] MEDS: FISH OIL 1,000 MG CAP PO SCH ×2 (08:36→20:43)
[2017-02-04] MEDS: PRASUGREL HYDROCHLORIDE 10 MG TABLET PO SCH (08:36)
[2017-02-04] MEDS: FEBUXOSTAT 40 MG TABLET PO SCH (08:37)
[2017-02-04] MEDS: MULTIVIT/CA CARB/B CMPLX/FA TAB PO SCH (08:37)
[2017-02-04] MEDS: NICOTINE (7 MG/24 HR) PATCH TRANSDERM SCH (08:37)
[2017-02-04] MEDS: ISOSORBIDE MONONITRATE(SR)60 MG TAB PO SCH (08:37)
[2017-02-04] MEDS: NIFEdipine (XL) 30 MG TAB PO SCH ×2 (08:39→20:42)
[2017-02-04] MEDS: INSULIN ASPART [NOVOLOG] 3 ML PEN SC SCH ×4 (08:41→20:47)
[2017-02-04 08:51] LABS: ABNORMAL IP MESSAGE 1; HEMOGLOBIN 11.3 g/dl (14.0-18.0); LYMPHOCYTES # 0.5 10^3/ul (0.8-2.9); LYMPHOCYTES % 5.3 % (15.0-51.0); MEAN CORPUSCULAR HEMOGLOBIN 32.6 pg (29.0-33.0); MEAN CORPUSCULAR HGB CONC 32.3 g/dl (32.0-37.0); MEAN CORPUSCULAR VOLUME 100.9 fl (82.0-101.0); MEAN PLATELET VOLUME 11.1 fl (7.4-10.4); MONOCYTE # 0.1 10^3/ul (0.3-0.9); MONOCYTES % 1.4 % (0.0-11.0); NEUTROPHIL # 8.4 10^3/ul (1.6-7.5); NEUTROPHILS % 92.6 % (39.0-77.0); PLATELET COUNT 125 10^3/UL (140-415); POSITIVE DIFF @See below; RED BLOOD COUNT 3.47 10^6/ul (4.70-6.10)
[2017-02-04 09:04] LABS: INR 1.03; PARTIAL THROMBOPLASTIN TIME 31.1 Sec (25.0-35.0); PROTIME 13.5 Sec (12.2-14.2); PT RATIO 1.1
[2017-02-04 09:12] LABS: CALCIUM 8.6 mg/dl (8.4-10.2); CREATININE 6.58 mg/dl (0.61-1.24); POTASSIUM 4.4 mmol/L (3.5-5.1)
--- NOTE | 2017-02-04 11:14 | PN ---
DATE: 02/04/2017 SUBJECTIVE DATA: The patient is currently on hemodialysis, tolerating well. No other events noted. OBJECTIVE DATA: VITAL SIGNS: Blood pressure 140/73, temperature 98.5, pulse 78, respirations 19. HEENT: Head is normocephalic. NECK: Supple. HEART: Regular rate. LUNGS: Showed diminished breath sounds at the base. ABDOMEN: Soft, nontender to palpation. No rebound or guarding. EXTREMITIES: Negative for clubbing, cyanosis. No edema. DERMATOLOGIC: No rashes. MUSCULOSKELETAL: No joint effusion. NEUROLOGIC: No change in exam. MEDICATIONS: The patient's medications have been reviewed. LABORATORY AND DIAGNOSTIC DATA: Shows sodium 136, potassium 4.4, chloride 99, BUN 86, creatinine 6.58. White count 9.0, hemoglobin 9.3, hematocrit 5.0. Platelet count is 125. ASSESSMENT AND PLAN: 1. End-stage renal disease. Continue hemodialysis. Dialysis today for 3 hours, 3K bath, calcium 2.5. 2. Mineral bone disorder. Monitor calcium and phosphorus levels. 3. Anemia. Monitor H and H levels. Will give Epogen with dialysis. 4. Acute congestive heart failure. Continue ultrafiltration with hemodialysis. 5. Hypertension. Continue current blood pressure regimen. 6. Diabetes. Continue Accu-Cheks and sliding scale. 7. Coronary artery disease. Continue medical management. 8. Lower extremity weakness. The patient's MRI was reviewed. The patient on Decadron. Follow up with Neurology. May require an LP has MRI was not significantly revealing. Dictated By: Arvind Galindo DO /waldo/radha /Document#: [id number]
[2017-02-04] MEDS: SEVELAMER 800 MG TAB PO SCH ×2 (11:44→17:23)
--- NOTE | 2017-02-04 14:17 | PN ---
Date/Time of Note Date/Time of Note DATE: 02/04/17 TIME: 14:12 Assessment/Plan VTE Prophylaxis VTE Prophylaxis Intervention: SCD's Lines/Catheters IV [facility]ter [facility]from [facility] [place] [facility] Urinary Cath still in place: No Assessment/Plan Chief Complaint/Hosp Course 1. Bilateral lower extremity weakness. Brain imaging studies negative for any acute findings. S/P physical therapy evaluation. Physical therapy recommending further rehabilitation. Was started on IV steroids by Neurology. Lumbar spine CT showing multilevel central canal and neural foraminal stenosis. Plan for lumbar puncture. 2. End-stage renal disease on hemodialysis. Being followed by nephrology. 3. Essential hypertension. Continue antihypertensives. 4. Diabetes mellitus. Continue sliding scale insulin. 5. CAD. Continue antiplatelet therapy. 6. Dyslipidemia. Continue statins. 7. Anemia of chronic kidney disease. Monitor H&H closely. Off Epogen as per nephrology. 8. Fluids, electrolytes, and nutrition. Carbohydrate controlled, renal diet. 9. DVT prophylaxis. Bilateral sequential compression devices. 10. Plan. Continue further recommendations from Neurology. The patient refused lumbar puncture today. He agreed to have the lumbar puncture done tomorrow. Case discussed with Dr. Willett. Problems: Subjective 24 Hr Interval Summary Free Text/Dictation Still has trouble with ambulation. Exam/Review of Systems Vital Signs Vitals Vital Signs Date Time Temp Pulse Resp B/P Pulse Ox O2 Delivery O2 Flow Rate FiO2 02/04/17 12:25 85 02/04/17 11:51 98.0 19 130/65 97 Intake and Output 02/03/17 02/03/17 02/04/17 15:00 23:00 07:00 Intake Total 800 ml 360 ml Output Total 400 ml Balance 800 ml -40 ml Exam General: Adequately build 81 year-old male lying in bed in no apparent distress. HEENT: Normocephalic, atraumatic. Eyes: Anicteric sclerae, conjunctivae clear. ENT: Nasal septum midline, oral mucosa moist. Neck supple, no JVD noticed. Respiratory: Bilaterally clear breath sounds. No use of accessory muscles of respiration. No adventitious breath sounds. Cardiovascular: S1, S2 heard. No murmurs or gallops. Abdomen: Soft, nontender, and nondistended. Bowel sounds positive in all 4 quadrants. Genitourinary: Deferred. Extremities: No cyanosis, no clubbing, no edema. Peripheral pulses palpable. Neurologic: Cranial nerves II through XII grossly intact. The patient is awake, alert, and oriented. B/L LE 3/5 strength. B/L UE 5/5 strength. Skin: Normal skin turgor. No skin rashes. Results Result Diagram: 02/04/17 0804 02/04/17 0804 Results 24 hrs Laboratory Tests Test 02/03/17 17:13 02/03/17 20:16 02/04/17 02:24 02/04/17 08:01 Bedside Glucose 181 243 H 186 189 Test 02/04/17 08:04 02/04/17 08:14 02/04/17 11:43 White Blood Count 9.0 # Red Blood Count 3.47 L Hemoglobin 11.3 L Hematocrit 35.0 L Mean Corpuscular Volume 100.9 Mean Corpuscular Hemoglobin 32.6 Mean Corpuscular Hemoglobin Concent 32.3 Red Cell Distribution Width 14.0 Platelet Count 125 L Mean Platelet Volume 11.1 H Neutrophils % 92.6 H Lymphocytes % 5.3 L Monocytes % 1.4 Eosinophils % 0.0 Basophils % 0.0 Nucleated Red Blood Cells % 0.0 Neutrophils # 8.4 H Lymphocytes # 0.5 L Monocytes # 0.1 L Eosinophils # 0.0 Basophils # 0.0 Nucleated Red Blood Cells # 0.0 Sodium Level 136 Potassium Level 4.4 Chloride Level 99 Carbon Dioxide Level 23 Anion Gap 18 H Blood Urea Nitrogen 86 #H Creatinine 6.58 H Glucose Level 203 Calcium Level 8.6 Phosphorus Level 7.3 H Magnesium Level 2.0 Prothrombin Time 13.5 Prothrombin Time Ratio 1.1 INR International Normalized Ratio 1.03 Activated Partial Thromboplast Time 31.1 Bedside Glucose 180 Medications Medications Current Medications Ondansetron HCl (Zofran Inj) 4 mg Q6 PRN IV NAUSEA AND/OR VOMITING Last administered on 02/01/17 20:56; Admin Dose 4 MG; Start 01/30/17 at 00:00 Acetaminophen (Tylenol Tab) 650 mg Q6H PRN PO PAIN AND OR ELEVATED TEMP; Start 01/30/17 at 00:00 Clonidine (Catapres) 0.1 mg TID PRN PO FOR SBP >160 Last administered on 12:10; Admin Dose 0.1 MG; Start 01/30/17 at 00:00 Ergocalciferol (Drisdol) 50,000 unit Q7D PO Last administered on 02/01/17 09: 19; Admin Dose 50,000 UNIT; Start 02/01/17 at 09:00 Febuxostat (Uloric) 40 mg DAILY PO Last administered on 02/04/17 08:37; Admin Dose 40 MG; Start 01/30/17 at 09:00 Hydralazine HCl (Apresoline) 50 mg BID PO Last administered on 02/04/17 08:36 ; Admin Dose 50 MG; Start 01/30/17 at 00:00 Isosorbide Mononitrate (Imdur) 60 mg DAILY PO Last administered on 02/04/17 08 :37; Admin Dose 60 MG; Start 01/30/17 at 09:00 Prasugrel (Effient) 10 mg DAILY PO Last administered on 02/04/17 08:36; Admin Dose 10 MG; Start 01/30/17 at 09:00 Ropinirole HCl (Requip) 0.25 mg HS PO Last administered on 02/03/17 20:16; Admin Dose 0.25 MG; Start 01/30/17 at 21:00 Tamsulosin HCl (Flomax) 0.4 mg DAILY@21 PO Last administered on 02/03/17 20:15 ; Admin Dose 0.4 MG; Start 01/30/17 at 21:00 Fish Oil (Fish Oil) 1,000 mg BID PO Last administered on 02/04/17 08:36; Admin Dose 1,000 MG; Start 01/31/17 at 09:30 Atorvastatin Calcium (Lipitor) 10 mg QHS PO Last administered on 02/03/17 20: 15; Admin Dose 10 MG; Start 01/30/17 at 21:00 Multivit/Ca Carb/ B Cmplx/FA/Prenat (Paulina-Chrissy) 1 tab DAILY PO Last administered on 02/04/17 08:37; Admin Dose 1 TAB; Start 01/30/17 at 09:00 Carvedilol (Coreg) 3.125 mg BID PO Last administered on 02/04/17 08:36; Admin Dose 3.125 MG; Start 01/30/17 at 00:00 Miscellaneous Information 1 ea NOTE XX ; Start 01/30/17 at 01:00 Glucose (Glutose) 15 gm Q15M PRN PO DECREASED GLUCOSE; Start 01/30/17 at 01:00 Glucose (Glutose) 22.5 gm Q15M PRN PO DECREASED GLUCOSE; Start 01/30/17 at 01: 00 Dextrose (D50w Syringe) 25 ml Q15M PRN IV DECREASED GLUCOSE; Start 01/30/17 at 01:00 Dextrose (D50w Syringe) 50 ml Q15M PRN IV DECREASED GLUCOSE; Start 01/30/17 at 01:00 Glucagon (Glucagen) 1 mg Q15M PRN IM DECREASED GLUCOSE; Start 01/30/17 at 01:00 Glucose (Glutose) 15 gm Q15M PRN BUCCAL DECREASED GLUCOSE; Start 01/30/17 at 01 :00 Diagnostic Test (Pha) (Accu-Chek) 1 ea 02 XX Last administered on 02/04/17 02: 27; Admin Dose 1 EA; Start 01/31/17 at 02:00 Nifedipine (Procardia Xl) 30 mg BID PO Last administered on 02/04/17 08:39; Admin Dose 30 MG; Start 02/01/17 at 21:00 Nicotine 1 patch 1 patch DAILY TRANSDERM Last administered on 02/04/17 08:37; Admin Dose 1 PATCH; Start 02/03/17 at 15:00 Methylprednisolone Sodium Succinate/ Dextrose (Solu-Medrol/D5W) 50 ml @ 100 mls /hr Q24H IVPB Last administered on 02/03/17 15:27; Admin Dose 100 MLS/HR; Start 02/03/17 at 15:30; Stop 02/05/17 at 15:59 ALICIA ISAACS NP Feb 04, 2017 14:17
[2017-02-04] MEDS: METHYLPRED. NA SUCC 1,000 MG in DEXTROSE 5% 50 ML IVPB SCH (16:15)
[2017-02-04] MEDS ORDERED: INSULIN ASPART [NOVOLOG] 3 ML PEN SC ONE (17:30)
--- NOTE | 2017-02-04 20:35 | CONS ---
Date/Time of Note Date/Time of Note DATE: 02/04/17 TIME: 20:28 Consult Date/Type/Reason Admit Date/Time Jan 29, 2017 at 19:38 Initial Consult Date 01/30/17 Type of Consultation: Neurology follow up Reason for Consultation LE weakness gait instability Subjective complains of inability to walk requesting to work with PT receiving HD at bedside Objective Vital Signs Date Time Temp Pulse Resp B/P Pulse Ox O2 Delivery O2 Flow Rate FiO2 02/04/17 16:32 94 02/04/17 15:58 98.0 18 155/61 93 Intake and Output 02/03/17 02/03/17 02/04/17 15:00 23:00 07:00 Intake Total 800 ml 360 ml Output Total 400 ml Balance 800 ml -40 ml Exam awake and alert oriented x3 fluent speech speaks [place] bedside 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 used able to follow commands CN: LIU, VFF, no nystagmus no facial asymmetry palate upgoing uvula midline scm/trap intact Motor strength is 5/5 in UE LE are 4-/5 4-/5 weakness plantarflexion Sensory decreased pinprick in hands and PP LE below lower abdomen Coordination no ataxia Reflexes 2+ upper extremities and KJ absent AJ toes down Results/Medications Result Diagram: 02/04/17 0804 02/04/17 0804 Results 24 hrs Laboratory Tests Test 02/04/17 02:24 02/04/17 08:01 02/04/17 08:04 02/04/17 08:14 Bedside Glucose 186 189 White Blood Count 9.0 # Red Blood Count 3.47 L Hemoglobin 11.3 L Hematocrit 35.0 L Mean Corpuscular Volume 100.9 Mean Corpuscular Hemoglobin 32.6 Mean Corpuscular Hemoglobin Concent 32.3 Red Cell Distribution Width 14.0 Platelet Count 125 L Mean Platelet Volume 11.1 H Neutrophils % 92.6 H Lymphocytes % 5.3 L Monocytes % 1.4 Eosinophils % 0.0 Basophils % 0.0 Nucleated Red Blood Cells % 0.0 Neutrophils # 8.4 H Lymphocytes # 0.5 L Monocytes # 0.1 L Eosinophils # 0.0 Basophils # 0.0 Nucleated Red Blood Cells # 0.0 Sodium Level 136 Potassium Level 4.4 Chloride Level 99 Carbon Dioxide Level 23 Anion Gap 18 H Blood Urea Nitrogen 86 #H Creatinine 6.58 H Glucose Level 203 Calcium Level 8.6 Phosphorus Level 7.3 H Magnesium Level 2.0 Prothrombin Time 13.5 Prothrombin Time Ratio 1.1 INR International Normalized Ratio 1.03 Activated Partial Thromboplast Time 31.1 Test 02/04/17 11:43 02/04/17 17:16 Bedside Glucose 180 271 H Medications Current Medications Ondansetron HCl (Zofran Inj) 4 mg Q6 PRN IV NAUSEA AND/OR VOMITING Last administered on 02/01/17 20:56; Admin Dose 4 MG; Start 01/30/17 at 00:00 Acetaminophen (Tylenol Tab) 650 mg Q6H PRN PO PAIN AND OR ELEVATED TEMP; Start 01/30/17 at 00:00 Clonidine (Catapres) 0.1 mg TID PRN PO FOR SBP >160 Last administered on 12:10; Admin Dose 0.1 MG; Start 01/30/17 at 00:00 Ergocalciferol (Drisdol) 50,000 unit Q7D PO Last administered on 02/01/17 09: 19; Admin Dose 50,000 UNIT; Start 02/01/17 at 09:00 Febuxostat (Uloric) 40 mg DAILY PO Last administered on 02/04/17 08:37; Admin Dose 40 MG; Start 01/30/17 at 09:00 Hydralazine HCl (Apresoline) 50 mg BID PO Last administered on 02/04/17 08:36 ; Admin Dose 50 MG; Start 01/30/17 at 00:00 Isosorbide Mononitrate (Imdur) 60 mg DAILY PO Last administered on 02/04/17 08 :37; Admin Dose 60 MG; Start 01/30/17 at 09:00 Prasugrel (Effient) 10 mg DAILY PO Last administered on 02/04/17 08:36; Admin Dose 10 MG; Start 01/30/17 at 09:00 Ropinirole HCl (Requip) 0.25 mg HS PO Last administered on 02/03/17 20:16; Admin Dose 0.25 MG; Start 01/30/17 at 21:00 Tamsulosin HCl (Flomax) 0.4 mg DAILY@21 PO Last administered on 02/03/17 20:15 ; Admin Dose 0.4 MG; Start 01/30/17 at 21:00 Fish Oil (Fish Oil) 1,000 mg BID PO Last administered on 02/04/17 08:36; Admin Dose 1,000 MG; Start 01/31/17 at 09:30 Atorvastatin Calcium (Lipitor) 10 mg QHS PO Last administered on 02/03/17 20: 15; Admin Dose 10 MG; Start 01/30/17 at 21:00 Multivit/Ca Carb/ B Cmplx/FA/Prenat (Paulina-Chrissy) 1 tab DAILY PO Last administered on 02/04/17 08:37; Admin Dose 1 TAB; Start 01/30/17 at 09:00 Carvedilol (Coreg) 3.125 mg BID PO Last administered on 02/04/17 08:36; Admin Dose 3.125 MG; Start 01/30/17 at 00:00 Miscellaneous Information 1 ea NOTE XX ; Start 01/30/17 at 01:00 Glucose (Glutose) 15 gm Q15M PRN PO DECREASED GLUCOSE; Start 01/30/17 at 01:00 Glucose (Glutose) 22.5 gm Q15M PRN PO DECREASED GLUCOSE; Start 01/30/17 at 01: 00 Dextrose (D50w Syringe) 25 ml Q15M PRN IV DECREASED GLUCOSE; Start 01/30/17 at 01:00 Dextrose (D50w Syringe) 50 ml Q15M PRN IV DECREASED GLUCOSE; Start 01/30/17 at 01:00 Glucagon (Glucagen) 1 mg Q15M PRN IM DECREASED GLUCOSE; Start 01/30/17 at 01:00 Glucose (Glutose) 15 gm Q15M PRN BUCCAL DECREASED GLUCOSE; Start 01/30/17 at 01 :00 Diagnostic Test (Pha) (Accu-Chek) 1 ea 02 XX Last administered on 02/04/17 02: 27; Admin Dose 1 EA; Start 01/31/17 at 02:00 Nifedipine 30 mg 30 mg BID PO Last administered on 02/04/17 08:39; Admin Dose 30 MG; Start 02/01/17 at 21:00 Methylprednisolone Sodium Succinate/ Dextrose (Solu-Medrol/D5W) 50 ml @ 100 mls /hr Q24H IVPB Last administered on 02/04/17 16:15; Admin Dose 100 MLS/HR; Start 02/03/17 at 15:30; Stop 02/05/17 at 15:59 Nicotine (Nicoderm 14 Mg/ 24hr) 1 patch DAILY TRANSDERM ; Start 02/05/17 at 09: 00 Assessment/Plan Chief Complaint/Hosp Course acute onset LE weakness unclear etiology MRI T Spine: There is multilevel disc space narrowing which appears more pronounced, moderate - severe at T2-3 through T9-10. Minimal posterior disc osteophytes are seen at T3-4, T5-6 and T6-7. No central canal stenosis is identified. Facet arthropathy seen at T5-6 on the right. No high-grade foraminal narrowing is seen. The cord is not well assessed due to motion artifacts. MRI L Spine: Multilevel lumbar spondylosis with multilevel foraminal narrowing as described. No evidence for fracture or metastatic disease. Suggestion of increased central canal signal of the distal cord on the sagittal images. Recommendations: LP pending to evaluate for possible TM, doubt GBS with preserved reflexes Given Solumedrol x 3 days monitor glucose, give with PPI PT/OT eval will follow Problems: CARI GONZALES MD Feb 04, 2017 20:35
[2017-02-04] MEDS: ATORVASTATIN 10 MG TAB PO SCH (20:43)
[2017-02-04] MEDS: TAMSULOSIN (SR) 0.4 MG CAP PO SCH (20:43)
[2017-02-04] MEDS: ROPINIROLE 0.25 MG TAB PO SCH (20:43)
[2017-02-04] MEDS: ONDANSETRON 4 MG INJ IV PRN (20:49)
[2017-02-05] VITALS (13 sets, daily range): BP systolic 148–182; BP diastolic 66–77; PULSE 79–100; RESP 18–20
[2017-02-05] MEDS: ACCU-CHEK XX SCH (02:00)
[2017-02-05] MEDS: INSULIN ASPART [NOVOLOG] 3 ML PEN SC SCH ×4 (08:00→21:00)
[2017-02-05 08:31] LABS: ABNORMAL IP MESSAGE 1; BASOPHILS % 0.1 % (0.0-2.0); HEMATOCRIT 37.3 % (42.0-52.0); HEMOGLOBIN 12.1 g/dl (14.0-18.0); LYMPHOCYTES # 0.3 10^3/ul (0.8-2.9); LYMPHOCYTES % 2.6 % (15.0-51.0); MEAN CORPUSCULAR HEMOGLOBIN 33.4 pg (29.0-33.0); MEAN CORPUSCULAR HGB CONC 32.4 g/dl (32.0-37.0); MEAN PLATELET VOLUME 11.3 fl (7.4-10.4); MONOCYTE # 0.3 10^3/ul (0.3-0.9); MONOCYTES % 2.8 % (0.0-11.0); NEUTROPHIL # 10.1 10^3/ul (1.6-7.5); PLATELET COUNT 140 10^3/UL (140-415); POSITIVE DIFF @See below; RED BLOOD COUNT 3.62 10^6/ul (4.70-6.10); RED CELL DISTRIBUTION WIDTH 13.8 % (11.5-14.5); WHITE BLOOD COUNT 10.7 10^3/ul (4.8-10.8)
[2017-02-05] MEDS: NIFEdipine (XL) 30 MG TAB PO SCH ×2 (09:00→20:58)
[2017-02-05] MEDS: MULTIVIT/CA CARB/B CMPLX/FA TAB PO SCH (09:00)
[2017-02-05] MEDS: PRASUGREL HYDROCHLORIDE 10 MG TABLET PO SCH (09:00)
[2017-02-05] MEDS: ISOSORBIDE MONONITRATE(SR)60 MG TAB PO SCH (09:00)
[2017-02-05] MEDS: FEBUXOSTAT 40 MG TABLET PO SCH (09:00)
[2017-02-05] MEDS: FISH OIL 1,000 MG CAP PO SCH ×2 (09:00→20:57)
[2017-02-05 09:04] LABS: MAGNESIUM 1.9 mg/dl (1.7-2.5); PHOSPHORUS 7.3 mg/dl (2.5-4.9)
[2017-02-05 09:13] LABS: CALCIUM 8.7 mg/dl (8.4-10.2); CREATININE 5.56 mg/dl (0.61-1.24); POTASSIUM 4.3 mmol/L (3.5-5.1)
[2017-02-05] MEDS: NICOTINE (14 MG/24 HR) PATCH TRANSDERM SCH (09:28)
--- NOTE | 2017-02-05 10:12 | PN ---
DATE: 02/05/2017 SUBJECTIVE DATA: The patient is stable. No events overnight. No fevers, chills, nausea, vomiting. No shortness of breath. OBJECTIVE DATA: VITAL SIGNS: Blood pressure 151/68, respirations 19, pulse 85, temperature 98.2. HEENT: Head is normocephalic. NECK: Supple. HEART: Regular rate. LUNGS: Diminished breath sounds at the base. ABDOMEN: Soft, nontender to palpation. No rebound or guarding. EXTREMITIES: Negative for clubbing, cyanosis. No edema. DERMATOLOGIC: No rashes. MUSCULOSKELETAL: No joint effusions. NEUROLOGIC: No change in exam. MEDICATIONS: Patient's medications have been reviewed. LABORATORY AND DIAGNOSTIC DATA: Laboratory data shows sodium 139, potassium 4.2, chloride 98, BUN 85, creatinine 5.56, phosphorus 7.3. White count 10.7, hemoglobin 10.1, hematocrit 37.3, platelet count 140. ASSESSMENT AND PLAN: 1. Endstage renal disease. Plan for hemodialysis tomorrow. We will dialyze for 3 hours, 3K bath, calcium 2.5, ultrafiltration as tolerated. 2. Mineral bone disorder. Patient's phosphorus levels are markedly elevated. We will up titrate Renagel 1600 mg t.i.d. Continue to monitor. Continue dialysis. 3. Anemia. Monitor hemoglobin and hematocrit levels. Continue Epogen with hemodialysis. 4. Congestive heart failure. Continue ultrafiltration dialysis. 5. Hypertension. Continue current blood pressure regimen. 6. Diabetes. Continue with current insulin . 7. Coronary artery disease. Continue medical management. 8. Lower extremity weakness. Patient is currently on Decadron. MRI reviewed. Follow up with Neurology. The patient may require LP. Dictated By: Arvind Galindo DO /waldo/malia /Document#: [id number]
[2017-02-05] MEDS: SEVELAMER 800 MG TAB PO SCH ×2 (11:43→17:26)
--- NOTE | 2017-02-05 11:56 | PN ---
Date/Time of Note Date/Time of Note DATE: 02/05/17 TIME: 11:55 Assessment/Plan VTE Prophylaxis VTE Prophylaxis Intervention: SCD's Lines/Catheters IV Catheter Type (from [facility]): [place] [facility] Urinary Cath still in place: No Assessment/Plan Chief Complaint/Hosp Course 1. Bilateral lower extremity weakness. Brain imaging studies negative for any acute findings. S/P physical therapy evaluation. Physical therapy recommending further rehabilitation. Was started on IV steroids by Neurology. Lumbar spine CT showing multilevel central canal and neural foraminal stenosis. S/P lumbar puncture. 2. End-stage renal disease on hemodialysis. Being followed by nephrology. 3. Essential hypertension. Continue antihypertensives. 4. Diabetes mellitus. Continue sliding scale insulin. 5. CAD. Continue antiplatelet therapy. 6. Dyslipidemia. Continue statins. 7. Anemia of chronic kidney disease. Monitor H&H closely. Off Epogen as per nephrology. 8. Fluids, electrolytes, and nutrition. Carbohydrate controlled, renal diet. 9. DVT prophylaxis. Bilateral sequential compression devices. 10. Plan. S/P lumbar puncture. Await further recommendations from Neurology. Problems: Subjective 24 Hr Interval Summary Free Text/Dictation S/P LP today. Exam/Review of Systems Vital Signs Vitals Vital Signs Date Time Temp Pulse Resp B/P Pulse Ox O2 Delivery O2 Flow Rate FiO2 02/05/17 11:35 90 02/05/17 07:55 98.2 19 151/68 92 Intake and Output 02/04/17 02/04/17 02/05/17 15:00 23:00 07:00 Intake Total 300 ml 800 ml 300 ml Output Total 3500 ml 400 ml Balance -3200 ml 800 ml -100 ml Exam General: Adequately build 81 year-old male lying in bed in no apparent distress. HEENT: Normocephalic, atraumatic. Eyes: Anicteric sclerae, conjunctivae clear. ENT: Nasal septum midline, oral mucosa moist. Neck supple, no JVD noticed. Respiratory: Bilaterally clear breath sounds. No use of accessory muscles of respiration. No adventitious breath sounds. Cardiovascular: S1, S2 heard. No murmurs or gallops. Abdomen: Soft, nontender, and nondistended. Bowel sounds positive in all 4 quadrants. Genitourinary: Deferred. Extremities: No cyanosis, no clubbing, no edema. Peripheral pulses palpable. Neurologic: Cranial nerves II through XII grossly intact. The patient is awake, alert, and oriented. B/L LE 4/5 strength. B/L UE 5/5 strength. Skin: Normal skin turgor. No skin rashes. Results Result Diagram: 02/05/17 0736 02/05/17 0736 Results 24 hrs Laboratory Tests Test 02/04/17 17:16 02/04/17 20:41 02/05/17 07:36 02/05/17 09:27 Bedside Glucose 271 H 213 168 White Blood Count 10.7 Red Blood Count 3.62 L Hemoglobin 12.1 L Hematocrit 37.3 L Mean Corpuscular Volume 103.0 H Mean Corpuscular Hemoglobin 33.4 H Mean Corpuscular Hemoglobin Concent 32.4 Red Cell Distribution Width 13.8 Platelet Count 140 Mean Platelet Volume 11.3 H Neutrophils % 94.0 H Lymphocytes % 2.6 L Monocytes % 2.8 Eosinophils % 0.0 Basophils % 0.1 Nucleated Red Blood Cells % 0.0 Neutrophils # 10.1 H Lymphocytes # 0.3 L Monocytes # 0.3 Eosinophils # 0.0 Basophils # 0.0 Nucleated Red Blood Cells # 0.0 Sodium Level 139 Potassium Level 4.3 Chloride Level 98 Carbon Dioxide Level 28 Anion Gap 17 H Blood Urea Nitrogen 85 H Creatinine 5.56 H Glucose Level 201 Calcium Level 8.7 Phosphorus Level 7.3 H Magnesium Level 1.9 Medications Medications Current Medications Ondansetron HCl (Zofran Inj) 4 mg Q6 PRN IV NAUSEA AND/OR VOMITING Last administered on 02/04/17 20:49; Admin Dose 4 MG; Start 01/30/17 at 00:00 Acetaminophen (Tylenol Tab) 650 mg Q6H PRN PO PAIN AND OR ELEVATED TEMP; Start 01/30/17 at 00:00 Clonidine (Catapres) 0.1 mg TID PRN PO FOR SBP >160 Last administered on 12:10; Admin Dose 0.1 MG; Start 01/30/17 at 00:00 Ergocalciferol (Drisdol) 50,000 unit Q7D PO Last administered on 02/01/17 09: 19; Admin Dose 50,000 UNIT; Start 02/01/17 at 09:00 Febuxostat (Uloric) 40 mg DAILY PO Last administered on 02/04/17 08:37; Admin Dose 40 MG; Start 01/30/17 at 09:00 Hydralazine HCl (Apresoline) 50 mg BID PO Last administered on 02/04/17 20:43 ; Admin Dose 50 MG; Start 01/30/17 at 00:00 Isosorbide Mononitrate (Imdur) 60 mg DAILY PO Last administered on 02/04/17 08 :37; Admin Dose 60 MG; Start 01/30/17 at 09:00 Prasugrel (Effient) 10 mg DAILY PO Last administered on 02/04/17 08:36; Admin Dose 10 MG; Start 01/30/17 at 09:00 Ropinirole HCl (Requip) 0.25 mg HS PO Last administered on 02/04/17 20:43; Admin Dose 0.25 MG; Start 01/30/17 at 21:00 Tamsulosin HCl (Flomax) 0.4 mg DAILY@21 PO Last administered on 02/04/17 20:43 ; Admin Dose 0.4 MG; Start 01/30/17 at 21:00 Fish Oil (Fish Oil) 1,000 mg BID PO Last administered on 02/04/17 20:43; Admin Dose 1,000 MG; Start 01/31/17 at 09:30 Atorvastatin Calcium (Lipitor) 10 mg QHS PO Last administered on 02/04/17 20: 43; Admin Dose 10 MG; Start 01/30/17 at 21:00 Multivit/Ca Carb/ B Cmplx/FA/Prenat (Paulina-Chrissy) 1 tab DAILY PO Last administered on 02/04/17 08:37; Admin Dose 1 TAB; Start 01/30/17 at 09:00 Carvedilol (Coreg) 3.125 mg BID PO Last administered on 02/04/17 20:43; Admin Dose 3.125 MG; Start 01/30/17 at 00:00 Miscellaneous Information 1 ea NOTE XX ; Start 01/30/17 at 01:00 Glucose (Glutose) 15 gm Q15M PRN PO DECREASED GLUCOSE; Start 01/30/17 at 01:00 Glucose (Glutose) 22.5 gm Q15M PRN PO DECREASED GLUCOSE; Start 01/30/17 at 01: 00 Dextrose (D50w Syringe) 25 ml Q15M PRN IV DECREASED GLUCOSE; Start 01/30/17 at 01:00 Dextrose (D50w Syringe) 50 ml Q15M PRN IV DECREASED GLUCOSE; Start 01/30/17 at 01:00 Glucagon (Glucagen) 1 mg Q15M PRN IM DECREASED GLUCOSE; Start 01/30/17 at 01:00 Glucose (Glutose) 15 gm Q15M PRN BUCCAL DECREASED GLUCOSE; Start 01/30/17 at 01 :00 Diagnostic Test (Pha) (Accu-Chek) 1 ea 02 XX Last administered on 02/04/17 02: 27; Admin Dose 1 EA; Start 01/31/17 at 02:00 Nifedipine 30 mg 30 mg BID PO Last administered on 02/04/17 20:42; Admin Dose 30 MG; Start 02/01/17 at 21:00 Methylprednisolone Sodium Succinate/ Dextrose (Solu-Medrol/D5W) 50 ml @ 100 mls /hr Q24H IVPB Last administered on 02/04/17 16:15; Admin Dose 100 MLS/HR; Start 02/03/17 at 15:30; Stop 02/05/17 at 15:59 Nicotine (Nicoderm 14 Mg/ 24hr) 1 patch DAILY TRANSDERM Last administered on 09:28; Admin Dose 1 PATCH; Start 02/05/17 at 09:00 ALICIA ISAACS NP Feb 05, 2017 11:56
[2017-02-05] MEDS: FAMOTIDINE 20 MG TAB PO SCH (12:00)
[2017-02-05 14:05] LABS: GLUCOSE,CSF 107 mg/dl (50-80)
[2017-02-05 14:46] LABS: CSF COLOR COLORLESS; CSF VOLUME 6.3 ml; CSF#TUBE COUNT TUBE#4; CSF#TUBES REC'D 4
[2017-02-05] MEDS: METHYLPRED. NA SUCC 1,000 MG in DEXTROSE 5% 50 ML IVPB SCH (15:47)
--- NOTE | 2017-02-05 16:00 | RADRPT ---
PROCEDURE: Fluoroscopic guided lumbar puncture. CLINICAL INDICATION: Bilateral lower extremity weakness. TECHNIQUE: Prior to the procedure, informed consent was obtained. Risks including bleeding and in fection were explained to the patient. The patient understood and was willing to proceed. A proced ural pause was performed. The patient's name, date of , and procedure to be performed were zane ified. Using local anesthetic, sterile technique, and fluoroscopic guidance, a 22-gauge spinal needle was a dvanced into the thecal sac at the L4-5 level. Opening pressure was 6 cm of water. 7 mL of clear c erebrospinal fluid was aspirated and sent for laboratory analysis. The needle was removed. A dress ing was applied. The patient tolerated the procedure well. A total of 0.2 minutes of fluoroscopy time was used. Four images were obtained with image intensifie r. COMPARISON: None. FINDINGS: Images demonstrate the needle at the L4-5 level in the thecal sac. IMPRESSION: 1. Satisfactory fluoroscopic guided lumbar puncture. 2. The opening pressure was 10 cm of water. RPTAT: QQ .Bernabe Riley MD, MD Date Time Electronically viewed and signed by .Bernabe Riley MD, on 02/05/2017 14:39 .R/
--- NOTE | 2017-02-05 17:19 | CONS ---
Date/Time of Note Date/Time of Note DATE: 02/05/17 TIME: 17:08 Assessment/Plan Assessment/Plan Chief Complaint/Hosp Course Bilateral lower extremity weakness Problems: Additional Assessment/Plan acute onset LE weakness unclear etiology MRI T Spine: There is multilevel disc space narrowing which appears more pronounced, moderate - severe at T2-3 through T9-10. Minimal posterior disc osteophytes are seen at T3-4, T5-6 and T6-7. No central canal stenosis is identified. Facet arthropathy seen at T5-6 on the right. No high-grade foraminal narrowing is seen. The cord is not well assessed due to motion artifacts. MRI L Spine: Multilevel lumbar spondylosis with multilevel foraminal narrowing as described. No evidence for fracture or metastatic disease. Suggestion of increased central canal signal of the distal cord on the sagittal images. LP showed WBC of 45, 96% mononuclear, CSF glucose 107, CSF protein 66. Appears to be possible viral meningitis. Recommendations: Given Solumedrol x 3 days monitor glucose, give with PPI PT/OT eval Infectious disease evaluation will follow Consultation Date/Type/Reason Admit Date/Time Jan 29, 2017 at 19:38 Initial Consult Date 01/30/17 Type of Consultation: Neurology follow up 24 HR Interval Summary Free Text/Dictation Clinically unchanged. Still reporting weakness bilateral lower extremity and has been unable to walk. Exam/Review of Systems Vital Signs Vitals Vital Signs Date Time Temp Pulse Resp B/P Pulse Ox O2 Delivery O2 Flow Rate FiO2 02/05/17 15:43 98.0 90 19 160/76 93 Intake and Output 02/04/17 02/04/17 02/05/17 15:00 23:00 07:00 Intake Total 300 ml 800 ml 300 ml Output Total 3500 ml 400 ml Balance -3200 ml 800 ml -100 ml Exam Constitutional: alert, oriented, well developed Psych: nl mood/affect, no complaints Head: atraumatic, normocephalic Eyes: EOMI, nl conjunctiva, nl lids, nl sclera ENMT: mucosa pink and moist, nl external ears & nose, nl lips & teeth, nl nasal mucosa & septum Neck: non-tender, supple Respiratory: clear to auscultation, normal air movement Cardiovascular: nl pulses, regular rate and rhythm Gastrointestinal: nl liver, spleen, non-tender, soft 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: PAINT STOCKMAN II-XII intact, nl mental status, nl speech, other (Bilateral lower extremity weakness) Results Result Diagram: 02/05/17 0736 02/05/17 0736 Results 24 hrs Laboratory Tests Test 02/04/17 17:16 02/04/17 20:41 02/05/17 07:36 02/05/17 09:27 Bedside Glucose 271 H 213 168 White Blood Count 10.7 Red Blood Count 3.62 L Hemoglobin 12.1 L Hematocrit 37.3 L Mean Corpuscular Volume 103.0 H Mean Corpuscular Hemoglobin 33.4 H Mean Corpuscular Hemoglobin Concent 32.4 Red Cell Distribution Width 13.8 Platelet Count 140 Mean Platelet Volume 11.3 H Neutrophils % 94.0 H Lymphocytes % 2.6 L Monocytes % 2.8 Eosinophils % 0.0 Basophils % 0.1 Nucleated Red Blood Cells % 0.0 Neutrophils # 10.1 H Lymphocytes # 0.3 L Monocytes # 0.3 Eosinophils # 0.0 Basophils # 0.0 Nucleated Red Blood Cells # 0.0 Sodium Level 139 Potassium Level 4.3 Chloride Level 98 Carbon Dioxide Level 28 Anion Gap 17 H Blood Urea Nitrogen 85 H Creatinine 5.56 H Glucose Level 201 Calcium Level 8.7 Phosphorus Level 7.3 H Magnesium Level 1.9 Test 02/05/17 13:00 CSF Tubes Submitted 4 CSF Volume 6.3 CSF Appearance CLEAR CSF Color COLORLESS CSF WBC 45 *H CSF RBC 0 CSF Cell Count Tube # TUBE#4 CSF Mononuclear Cells % (Auto) 96.0 CSF Polynuclear WBCs (%) 4.0 CSF Glucose 107 H CSF Total Protein 66 H Medications Medications Current Medications Ondansetron HCl (Zofran Inj) 4 mg Q6 PRN IV NAUSEA AND/OR VOMITING Last administered on 02/04/17 20:49; Admin Dose 4 MG; Start 01/30/17 at 00:00 Acetaminophen (Tylenol Tab) 650 mg Q6H PRN PO PAIN AND OR ELEVATED TEMP; Start 01/30/17 at 00:00 Clonidine (Catapres) 0.1 mg TID PRN PO FOR SBP >160 Last administered on 12:10; Admin Dose 0.1 MG; Start 01/30/17 at 00:00 Ergocalciferol (Drisdol) 50,000 unit Q7D PO Last administered on 02/01/17 09: 19; Admin Dose 50,000 UNIT; Start 02/01/17 at 09:00 Febuxostat (Uloric) 40 mg DAILY PO Last administered on 02/04/17 08:37; Admin Dose 40 MG; Start 01/30/17 at 09:00 Hydralazine HCl (Apresoline) 50 mg BID PO Last administered on 02/04/17 20:43 ; Admin Dose 50 MG; Start 01/30/17 at 00:00 Isosorbide Mononitrate (Imdur) 60 mg DAILY PO Last administered on 02/04/17 08 :37; Admin Dose 60 MG; Start 01/30/17 at 09:00 Prasugrel (Effient) 10 mg DAILY PO Last administered on 02/04/17 08:36; Admin Dose 10 MG; Start 01/30/17 at 09:00 Ropinirole HCl (Requip) 0.25 mg HS PO Last administered on 02/04/17 20:43; Admin Dose 0.25 MG; Start 01/30/17 at 21:00 Tamsulosin HCl (Flomax) 0.4 mg DAILY@21 PO Last administered on 02/04/17 20:43 ; Admin Dose 0.4 MG; Start 01/30/17 at 21:00 Fish Oil (Fish Oil) 1,000 mg BID PO Last administered on 02/04/17 20:43; Admin Dose 1,000 MG; Start 01/31/17 at 09:30 Atorvastatin Calcium (Lipitor) 10 mg QHS PO Last administered on 02/04/17 20: 43; Admin Dose 10 MG; Start 01/30/17 at 21:00 Multivit/Ca Carb/ B Cmplx/FA/Prenat (Paulina-Chrissy) 1 tab DAILY PO Last administered on 02/04/17 08:37; Admin Dose 1 TAB; Start 01/30/17 at 09:00 Carvedilol (Coreg) 3.125 mg BID PO Last administered on 02/04/17 20:43; Admin Dose 3.125 MG; Start 01/30/17 at 00:00 Miscellaneous Information 1 ea NOTE XX ; Start 01/30/17 at 01:00 Glucose (Glutose) 15 gm Q15M PRN PO DECREASED GLUCOSE; Start 01/30/17 at 01:00 Glucose (Glutose) 22.5 gm Q15M PRN PO DECREASED GLUCOSE; Start 01/30/17 at 01: 00 Dextrose (D50w Syringe) 25 ml Q15M PRN IV DECREASED GLUCOSE; Start 01/30/17 at 01:00 Dextrose (D50w Syringe) 50 ml Q15M PRN IV DECREASED GLUCOSE; Start 01/30/17 at 01:00 Glucagon (Glucagen) 1 mg Q15M PRN IM DECREASED GLUCOSE; Start 01/30/17 at 01:00 Glucose (Glutose) 15 gm Q15M PRN BUCCAL DECREASED GLUCOSE; Start 01/30/17 at 01 :00 Diagnostic Test (Pha) (Accu-Chek) 1 ea 02 XX Last administered on 02/04/17 02: 27; Admin Dose 1 EA; Start 01/31/17 at 02:00 Nifedipine (Procardia Xl) 30 mg BID PO Last administered on 02/04/17 20:42; Admin Dose 30 MG; Start 02/01/17 at 21:00 Nicotine (Nicoderm 14 Mg/ 24hr) 1 patch DAILY TRANSDERM Last administered on 09:28; Admin Dose 1 PATCH; Start 02/05/17 at 09:00 Famotidine (Pepcid) 20 mg DAILY PO ; Start 02/05/17 at 12:00 DEMI ARCHULETA MD Feb 05, 2017 17:18
[2017-02-05] MEDS ORDERED: INSULIN ASPART [NOVOLOG] 3 ML PEN SC ONE (17:30)
[2017-02-05] MEDS: ROPINIROLE 0.25 MG TAB PO SCH (20:57)
[2017-02-05] MEDS: ATORVASTATIN 10 MG TAB PO SCH (20:57)
[2017-02-05] MEDS: TAMSULOSIN (SR) 0.4 MG CAP PO SCH (20:57)
--- NOTE | 2017-02-05 22:38 | CONS ---
DATE OF ADMISSION: 01/29/2017 DATE OF CONSULTATION: 02/05/2017 REASON FOR CONSULTATION: Antibiotic management. HISTORY OF PRESENT ILLNESS: The patient is an 81-year-old male with numerous problems, who comes in with bilateral lower extremity weakness and is being seen for antibiotic management. His past problems include, 1. End-stage renal disease, on hemodialysis. 2. CHF. 3. Hypertension. 4. Dyslipidemia. 5. Pulmonary nodule. 6. Upper GI bleed. Patient presented to the emergency room complaining of bilateral lower extremity weakness. He was having difficulty walking because of weakness and had missed his dialysis. He denied upper extremity weakness with slurred speech, blurred vision, headache, seizure like activity, chest pain or shortness of breath. In the emergency room, his blood pressure was 188/64. Potassium 6.1, creatinine was almost 8, BUN was 72, glucose 68. Chest x-ray showed interval increase in right lower lobe atelectasis and mild prominence of interstitial markings, likely reflecting mild edema. So, the patient presented with bilateral lower extremity weakness. On admission his white count was 7.4, H and H of 11.6 and 33.5, platelet count of 124,000. BUN and creatinine 72 over 7.82, potassium is 6.1, glucose is 68. Chest x-ray showed increased right lower lobe atelectasis, mild prominence of interstitial markings. A CT scan of the brain showed no acute intracranial abnormalities, mild chronic appearing microvascular ischemic changes of the supratentorial white matter. A lumbar CT scan of the spine showed no acute fractures or subluxations, mild central multilevel central canal for neural foraminal stenosis. Thoracic MRI somewhat limited multilevel thoracic spondylosis, degenerative enthesopathy, mild canal stenosis. Thoracic CT scan shows no acute fractures. A lumbar MRI shows multilevel lumbar spondylosis, multilevel foraminal narrowing, increased central canal signal of the distal cord on the sagittal images. A lumbar puncture was done under fluoroscopy. Opening pressure, 10 cc of water. White count today is 10.7, H and H of 12.1 and 37.3, platelet count of 140,000. White count CBC was 45 minutes, 96 percent mononuclear sites, 4 percent polys, 107 glucose mg percent, 66 mg percent protein consistent with a viral meningitis. Patient was seen by Dr. Sequeira for acute onset of lower extremity weakness. LP appears to show viral meningitis. CSF cultures pending. PAST SURGICAL HISTORY: Operations as outlined. FAMILY HISTORY: Noncontributory. SOCIAL HISTORY: He does not smoke, drink, or abuse drugs. ALLERGIES: NONE TO PENICILLIN, SULFA, OR FOODS. MEDICATIONS: Per chart. REVIEW OF SYSTEMS: As per HPI. PHYSICAL EXAMINATION: The patient is a well-developed, well- nourished male who is alert, responsive, in no acute distress. VITAL SIGNS: Stable. He is afebrile. SKIN: Without generalized rash. HEENT: Within normal limits. NECK: Supple. Lymph nodes nonpalpable. CHEST: Decreased breath sounds at the bases. HEART: Without murmur or gallop. ABDOMEN: Soft, nontender, without organosplenomegaly or masses. EXTREMITIES: Without cyanosis, clubbing, or edema. He has weakness in both lower extremities. RECTAL AND GENITAL: Examination is deferred. NEUROLOGICAL: No focal neurological abnormalities. IMPRESSION AND PLAN: The patient has a viral meningitis with weakness. We have to consider West Nile virus, Guillain-Oxbow syndrome. There is no evidence of bacterial process. He also has central canal stenosis. I will dictate my findings to the hospitalist, Dr. Galindo, Dr. Paulino, Dr. Sequeira. According to Dr. Paulino, he does not think he Guillain- Oxbow syndrome is probable. Will try to do serologies for West Nile virus. Dictated By: Dave Morley MD JD/[email or web address]/anisa /Document#: [id number]
[2017-02-06] VITALS (20 sets, daily range): BP systolic 119–186; BP diastolic 49–99; PULSE 80–91; RESP 19–20
[2017-02-06] MEDS: ACCU-CHEK XX SCH (02:00)
[2017-02-06] MEDS: INSULIN ASPART [NOVOLOG] 3 ML PEN SC SCH ×4 (08:10→21:00)
[2017-02-06] MEDS: NICOTINE (14 MG/24 HR) PATCH TRANSDERM SCH (08:10)
[2017-02-06] MEDS: PRASUGREL HYDROCHLORIDE 10 MG TABLET PO SCH (08:10)
[2017-02-06] MEDS: NIFEdipine (XL) 30 MG TAB PO SCH ×2 (08:11→20:26)
[2017-02-06] MEDS: SEVELAMER 800 MG TAB PO SCH ×3 (08:11→17:15)
[2017-02-06] MEDS: FEBUXOSTAT 40 MG TABLET PO SCH (08:11)
[2017-02-06] MEDS: FAMOTIDINE 20 MG TAB PO SCH (08:12)
[2017-02-06] MEDS: FISH OIL 1,000 MG CAP PO SCH ×2 (08:12→21:22)
[2017-02-06] MEDS: MULTIVIT/CA CARB/B CMPLX/FA TAB PO SCH (08:12)
[2017-02-06] MEDS: ISOSORBIDE MONONITRATE(SR)60 MG TAB PO SCH (08:12)
--- NOTE | 2017-02-06 08:52 | PN ---
DATE: 02/06/2017 SUBJECTIVE DATA: The patient is scheduled for hemodialysis today. No other events noted overnight. No hemoptysis, hematemesis, hematochezia. OBJECTIVE DATA: VITAL SIGNS: Blood pressure 168/71, respirations 19, pulse 81, temperature 98.4. HEENT: Head is normocephalic. NECK: Supple. HEART: Regular rate. LUNGS: Show diminished breath sounds at the base. ABDOMEN: Soft, nontender to palpation. No rebound or guarding. EXTREMITIES: Negative for clubbing, cyanosis. No edema. DERMATOLOGIC: Clean. No rashes. MUSCULOSKELETAL: No joint effusion. NEUROLOGIC: No change in exam. MEDICATIONS: Reviewed. LABORATORY AND DIAGNOSTIC DATA: Reviewed. No new labs. ASSESSMENT AND PLAN: 1. End-stage renal disease. Plan for hemodialysis today. We will dialyze 3 hours, 3 potassium bath, calcium 2.5, ultrafiltration as tolerated. 2. Mineral bone disorder. Continue to monitor calcium and phosphorus levels. Continue phosphate binders. 3. Anemia. Monitor H and H levels. We will continue Epogen with dialysis. 4. Congestive heart failure. Continue ultrafiltration with dialysis. 5. Hypertension. Continue current blood pressure regimen. 6. Diabetes. Continue current insulin regimen. 7. Viral meningitis. Continue medical management. Follow up with Neurology. 8. Lower extremity weakness, possibly due to underlying meningitis. The patient remains on Decadron. Continue to monitor. Dictated By: Arvind Galindo DO /[email or web address]/eris /Document#: [id number]
[2017-02-06 11:06] LABS: ABNORMAL IP MESSAGE 1; BASOPHILS % 0.1 % (0.0-2.0); HEMATOCRIT 36.7 % (42.0-52.0); HEMOGLOBIN 12.1 g/dl (14.0-18.0); LYMPHOCYTES # 0.3 10^3/ul (0.8-2.9); LYMPHOCYTES % 2.2 % (15.0-51.0); MEAN CORPUSCULAR HEMOGLOBIN 33.7 pg (29.0-33.0); MEAN CORPUSCULAR VOLUME 102.2 fl (82.0-101.0); MEAN PLATELET VOLUME 11.1 fl (7.4-10.4); MONOCYTE # 0.5 10^3/ul (0.3-0.9); MONOCYTES % 4.3 % (0.0-11.0); NEUTROPHIL # 11.6 10^3/ul (1.6-7.5); NEUTROPHILS % 92.6 % (39.0-77.0); PLATELET COUNT 145 10^3/UL (140-415); POSITIVE DIFF @See below; RED BLOOD COUNT 3.59 10^6/ul (4.70-6.10); RED CELL DISTRIBUTION WIDTH 13.7 % (11.5-14.5); WHITE BLOOD COUNT 12.5 10^3/ul (4.8-10.8)
[2017-02-06 11:18] LABS: CALCIUM 8.6 mg/dl (8.4-10.2); CREATININE 4.44 mg/dl (0.61-1.24); POTASSIUM 3.9 mmol/L (3.5-5.1)
[2017-02-06 11:22] LABS: MAGNESIUM 1.9 mg/dl (1.7-2.5); PHOSPHORUS 5.1 mg/dl (2.5-4.9)
--- NOTE | 2017-02-06 12:16 | PN ---
Date/Time of Note Date/Time of Note DATE: 02/06/17 TIME: 12:13 Assessment/Plan VTE Prophylaxis VTE Prophylaxis Intervention: SCD's Lines/Catheters IV Catheter Type (from Rust): Saline Lock Urinary Cath still in place: No Assessment/Plan Chief Complaint/Hosp Course 1. Bilateral lower extremity weakness. Brain imaging studies negative for any acute findings. S/P IV steroids by Neurology. Lumbar spine CT showing multilevel central canal and neural foraminal stenosis. S/P lumbar puncture. CSF analysis suggestive of viral meningitis. Infectious Diseases following the patient. 2. End-stage renal disease on hemodialysis. Being followed by nephrology. 3. Essential hypertension. Continue antihypertensives. 4. Diabetes mellitus. Continue sliding scale insulin. 5. CAD. Continue antiplatelet therapy. 6. Dyslipidemia. Continue statins. 7. Anemia of chronic kidney disease. Monitor H&H closely. Off Epogen as per nephrology. 8. Fluids, electrolytes, and nutrition. Carbohydrate controlled, renal diet. 9. DVT prophylaxis. Bilateral sequential compression devices. 10. Plan. S/P lumbar puncture. CSF analysis showed high WBC. CSF cultures and viral serology including West Nile virus serology pending. Await further recommendations from Neurology. Problems: Subjective 24 Hr Interval Summary Free Text/Dictation The patient remains afebrile. Exam/Review of Systems Vital Signs Vitals Vital Signs Date Time Temp Pulse Resp B/P Pulse Ox O2 Delivery O2 Flow Rate FiO2 02/06/17 12:00 98.1 93 19 145/52 93 Intake and Output 02/05/17 02/05/17 02/06/17 15:00 23:00 07:00 Intake Total 500 ml 400 ml Balance 500 ml 400 ml Exam General: Adequately build 81 year-old male lying in bed in no apparent distress. HEENT: Normocephalic, atraumatic. Eyes: Anicteric sclerae, conjunctivae clear. ENT: Nasal septum midline, oral mucosa moist. Neck supple, no JVD noticed. Respiratory: Bilaterally clear breath sounds. No use of accessory muscles of respiration. No adventitious breath sounds. Cardiovascular: S1, S2 heard. No murmurs or gallops. Abdomen: Soft, nontender, and nondistended. Bowel sounds positive in all 4 quadrants. Genitourinary: Deferred. Extremities: No cyanosis, no clubbing, no edema. Peripheral pulses palpable. Neurologic: Cranial nerves II through XII grossly intact. The patient is awake, alert, and oriented. B/L LE 4/5 strength. B/L UE 5/5 strength. Skin: Normal skin turgor. No skin rashes. Results Result Diagram: 02/06/17 0947 02/06/17 0947 Results 24 hrs Laboratory Tests Test 02/05/17 13:00 02/05/17 17:19 02/05/17 20:29 02/06/17 08:08 CSF Tubes Submitted 4 CSF Volume 6.3 CSF Appearance CLEAR CSF Color COLORLESS CSF WBC 45 *H CSF RBC 0 CSF Cell Count Tube # TUBE#4 CSF Mononuclear Cells % (Auto) 96.0 CSF Polynuclear WBCs (%) 4.0 CSF Glucose 107 H CSF Total Protein 66 H Bedside Glucose 269 H 267 H 196 Test 02/06/17 09:47 White Blood Count 12.5 H Red Blood Count 3.59 L Hemoglobin 12.1 L Hematocrit 36.7 L Mean Corpuscular Volume 102.2 H Mean Corpuscular Hemoglobin 33.7 H Mean Corpuscular Hemoglobin Concent 33.0 Red Cell Distribution Width 13.7 Platelet Count 145 Mean Platelet Volume 11.1 H Neutrophils % 92.6 H Lymphocytes % 2.2 L Monocytes % 4.3 Eosinophils % 0.0 Basophils % 0.1 Nucleated Red Blood Cells % 0.0 Neutrophils # 11.6 H Lymphocytes # 0.3 L Monocytes # 0.5 Eosinophils # 0.0 Basophils # 0.0 Nucleated Red Blood Cells # 0.0 Sodium Level 139 Potassium Level 3.9 Chloride Level 103 Carbon Dioxide Level 27 Anion Gap 13 Blood Urea Nitrogen 77 H Creatinine 4.44 #H Glucose Level 194 Calcium Level 8.6 Phosphorus Level 5.1 #H Magnesium Level 1.9 Medications Medications Current Medications Ondansetron HCl (Zofran Inj) 4 mg Q6 PRN IV NAUSEA AND/OR VOMITING Last administered on 02/04/17 20:49; Admin Dose 4 MG; Start 01/30/17 at 00:00 Acetaminophen (Tylenol Tab) 650 mg Q6H PRN PO PAIN AND OR ELEVATED TEMP; Start 01/30/17 at 00:00 Clonidine (Catapres) 0.1 mg TID PRN PO FOR SBP >160 Last administered on 12:10; Admin Dose 0.1 MG; Start 01/30/17 at 00:00 Ergocalciferol (Drisdol) 50,000 unit Q7D PO Last administered on 02/01/17 09: 19; Admin Dose 50,000 UNIT; Start 02/01/17 at 09:00 Febuxostat (Uloric) 40 mg DAILY PO Last administered on 02/06/17 08:11; Admin Dose 40 MG; Start 01/30/17 at 09:00 Hydralazine HCl (Apresoline) 50 mg BID PO Last administered on 02/06/17 08:12 ; Admin Dose 50 MG; Start 01/30/17 at 00:00 Isosorbide Mononitrate (Imdur) 60 mg DAILY PO Last administered on 02/06/17 08 :12; Admin Dose 60 MG; Start 01/30/17 at 09:00 Prasugrel (Effient) 10 mg DAILY PO Last administered on 02/06/17 08:10; Admin Dose 10 MG; Start 01/30/17 at 09:00 Ropinirole HCl (Requip) 0.25 mg HS PO Last administered on 02/05/17 20:57; Admin Dose 0.25 MG; Start 01/30/17 at 21:00 Tamsulosin HCl (Flomax) 0.4 mg DAILY@21 PO Last administered on 02/05/17 20:57 ; Admin Dose 0.4 MG; Start 01/30/17 at 21:00 Fish Oil (Fish Oil) 1,000 mg BID PO Last administered on 02/06/17 08:12; Admin Dose 1,000 MG; Start 01/31/17 at 09:30 Atorvastatin Calcium (Lipitor) 10 mg QHS PO Last administered on 02/05/17 20: 57; Admin Dose 10 MG; Start 01/30/17 at 21:00 Multivit/Ca Carb/ B Cmplx/FA/Prenat (Paulina-Chrissy) 1 tab DAILY PO Last administered on 02/06/17 08:12; Admin Dose 1 TAB; Start 01/30/17 at 09:00 Carvedilol (Coreg) 3.125 mg BID PO Last administered on 02/06/17 08:13; Admin Dose 3.125 MG; Start 01/30/17 at 00:00 Miscellaneous Information 1 ea NOTE XX ; Start 01/30/17 at 01:00 Glucose (Glutose) 15 gm Q15M PRN PO DECREASED GLUCOSE; Start 01/30/17 at 01:00 Glucose (Glutose) 22.5 gm Q15M PRN PO DECREASED GLUCOSE; Start 01/30/17 at 01: 00 Dextrose (D50w Syringe) 25 ml Q15M PRN IV DECREASED GLUCOSE; Start 01/30/17 at 01:00 Dextrose (D50w Syringe) 50 ml Q15M PRN IV DECREASED GLUCOSE; Start 01/30/17 at 01:00 Glucagon (Glucagen) 1 mg Q15M PRN IM DECREASED GLUCOSE; Start 01/30/17 at 01:00 Glucose (Glutose) 15 gm Q15M PRN BUCCAL DECREASED GLUCOSE; Start 01/30/17 at 01 :00 Diagnostic Test (Pha) (Accu-Chek) 1 ea 02 XX Last administered on 02/04/17 02: 27; Admin Dose 1 EA; Start 01/31/17 at 02:00 Nifedipine (Procardia Xl) 30 mg BID PO Last administered on 02/06/17 08:11; Admin Dose 30 MG; Start 02/01/17 at 21:00 Nicotine (Nicoderm 14 Mg/ 24hr) 1 patch DAILY TRANSDERM Last administered on 08:10; Admin Dose 1 PATCH; Start 02/05/17 at 09:00 Famotidine (Pepcid) 20 mg DAILY PO Last administered on 02/06/17 08:12; Admin Dose 20 MG; Start 02/05/17 at 12:00 ALICIA ISAACS NP Feb 06, 2017 12:16
--- NOTE | 2017-02-06 14:16 | CONS ---
Date/Time of Note Date/Time of Note DATE: 02/06/17 TIME: 14:15 Assessment/Plan Assessment/Plan Chief Complaint/Hosp Course patient is alert, sitting at the age of the bed, eating pork ribs, at bedside. He denies pain, no nausea vomiting diarrhea, no fevers Temperature 98.1 pulse 93 respirations 19 blood pressure 145/5052 saturation 93 on room air WBC 12.5 H&H 12.1 and 36.7 platelets 145 neutrophils 92.6 BUN 77 creatinine 4.44 Microbiology: CSF cultures preliminary negative Physical examination: Obese, well-developed elderly [place] man who is alert in no distress. Head atraumatic normocephalic sclerae nonicteric vehicle mucosa pink neck is supple chest rise symmetrical breath sounds clear heart S1- S2 abdomen soft bowel sounds present extremities without cyanosis Assessment: 1. Viral meningitis 2. End-stage renal disease, hemodialysis dependent 3. Diabetes. 4. Coronary artery disease and hypertension Plan: Patient remains stable, off antibiotics, pending final cultures, pending West Nile virus serology, neurology rec-s DW Problems: Consultation Date/Type/Reason Admit Date/Time Jan 29, 2017 at 19:38 Initial Consult Date 01/30/17 Type of Consultation: ID Exam/Review of Systems Vital Signs Vitals Vital Signs Date Time Temp Pulse Resp B/P Pulse Ox O2 Delivery O2 Flow Rate FiO2 02/06/17 12:03 87 02/06/17 12:00 98.1 19 145/52 93 Intake and Output 02/05/17 02/05/17 02/06/17 15:00 23:00 07:00 Intake Total 500 ml 400 ml Balance 500 ml 400 ml Results Result Diagram: 02/06/17 0947 02/06/17 0947 Results 24 hrs Laboratory Tests Test 02/05/17 17:19 02/05/17 20:29 02/06/17 08:08 02/06/17 09:47 Bedside Glucose 269 H 267 H 196 White Blood Count 12.5 H Red Blood Count 3.59 L Hemoglobin 12.1 L Hematocrit 36.7 L Mean Corpuscular Volume 102.2 H Mean Corpuscular Hemoglobin 33.7 H Mean Corpuscular Hemoglobin Concent 33.0 Red Cell Distribution Width 13.7 Platelet Count 145 Mean Platelet Volume 11.1 H Neutrophils % 92.6 H Lymphocytes % 2.2 L Monocytes % 4.3 Eosinophils % 0.0 Basophils % 0.1 Nucleated Red Blood Cells % 0.0 Neutrophils # 11.6 H Lymphocytes # 0.3 L Monocytes # 0.5 Eosinophils # 0.0 Basophils # 0.0 Nucleated Red Blood Cells # 0.0 Sodium Level 139 Potassium Level 3.9 Chloride Level 103 Carbon Dioxide Level 27 Anion Gap 13 Blood Urea Nitrogen 77 H Creatinine 4.44 #H Glucose Level 194 Calcium Level 8.6 Phosphorus Level 5.1 #H Magnesium Level 1.9 Test 02/06/17 12:12 Bedside Glucose 194 Medications Medications Current Medications Ondansetron HCl (Zofran Inj) 4 mg Q6 PRN IV NAUSEA AND/OR VOMITING Last administered on 02/04/17 20:49; Admin Dose 4 MG; Start 01/30/17 at 00:00 Acetaminophen (Tylenol Tab) 650 mg Q6H PRN PO PAIN AND OR ELEVATED TEMP; Start 01/30/17 at 00:00 Clonidine (Catapres) 0.1 mg TID PRN PO FOR SBP >160 Last administered on 12:10; Admin Dose 0.1 MG; Start 01/30/17 at 00:00 Ergocalciferol (Drisdol) 50,000 unit Q7D PO Last administered on 02/01/17 09: 19; Admin Dose 50,000 UNIT; Start 02/01/17 at 09:00 Febuxostat (Uloric) 40 mg DAILY PO Last administered on 02/06/17 08:11; Admin Dose 40 MG; Start 01/30/17 at 09:00 Hydralazine HCl (Apresoline) 50 mg BID PO Last administered on 02/06/17 08:12 ; Admin Dose 50 MG; Start 01/30/17 at 00:00 Isosorbide Mononitrate (Imdur) 60 mg DAILY PO Last administered on 02/06/17 08 :12; Admin Dose 60 MG; Start 01/30/17 at 09:00 Prasugrel (Effient) 10 mg DAILY PO Last administered on 02/06/17 08:10; Admin Dose 10 MG; Start 01/30/17 at 09:00 Ropinirole HCl (Requip) 0.25 mg HS PO Last administered on 02/05/17 20:57; Admin Dose 0.25 MG; Start 01/30/17 at 21:00 Tamsulosin HCl (Flomax) 0.4 mg DAILY@21 PO Last administered on 02/05/17 20:57 ; Admin Dose 0.4 MG; Start 01/30/17 at 21:00 Fish Oil (Fish Oil) 1,000 mg BID PO Last administered on 02/06/17 08:12; Admin Dose 1,000 MG; Start 01/31/17 at 09:30 Atorvastatin Calcium (Lipitor) 10 mg QHS PO Last administered on 02/05/17 20: 57; Admin Dose 10 MG; Start 01/30/17 at 21:00 Multivit/Ca Carb/ B Cmplx/FA/Prenat (Paulina-Chrissy) 1 tab DAILY PO Last administered on 02/06/17 08:12; Admin Dose 1 TAB; Start 01/30/17 at 09:00 Carvedilol (Coreg) 3.125 mg BID PO Last administered on 02/06/17 08:13; Admin Dose 3.125 MG; Start 01/30/17 at 00:00 Miscellaneous Information 1 ea NOTE XX ; Start 01/30/17 at 01:00 Glucose (Glutose) 15 gm Q15M PRN PO DECREASED GLUCOSE; Start 01/30/17 at 01:00 Glucose (Glutose) 22.5 gm Q15M PRN PO DECREASED GLUCOSE; Start 01/30/17 at 01: 00 Dextrose (D50w Syringe) 25 ml Q15M PRN IV DECREASED GLUCOSE; Start 01/30/17 at 01:00 Dextrose (D50w Syringe) 50 ml Q15M PRN IV DECREASED GLUCOSE; Start 01/30/17 at 01:00 Glucagon (Glucagen) 1 mg Q15M PRN IM DECREASED GLUCOSE; Start 01/30/17 at 01:00 Glucose (Glutose) 15 gm Q15M PRN BUCCAL DECREASED GLUCOSE; Start 01/30/17 at 01 :00 Diagnostic Test (Pha) (Accu-Chek) 1 ea 02 XX Last administered on 02/04/17 02: 27; Admin Dose 1 EA; Start 01/31/17 at 02:00 Nifedipine (Procardia Xl) 30 mg BID PO Last administered on 02/06/17 08:11; Admin Dose 30 MG; Start 02/01/17 at 21:00 Nicotine (Nicoderm 14 Mg/ 24hr) 1 patch DAILY TRANSDERM Last administered on 08:10; Admin Dose 1 PATCH; Start 02/05/17 at 09:00 Famotidine (Pepcid) 20 mg DAILY PO Last administered on 02/06/17 08:12; Admin Dose 20 MG; Start 02/05/17 at 12:00 JAROD NORIEGA NP Feb 06, 2017 14:16
--- NOTE | 2017-02-06 14:59 | CONS ---
Date/Time of Note Date/Time of Note DATE: 02/06/17 TIME: 14:57 Assessment/Plan Assessment/Plan Chief Complaint/Hosp Course Bilateral lower extremity weakness Problems: Additional Assessment/Plan acute onset LE weakness unclear etiology MRI T Spine: There is multilevel disc space narrowing which appears more pronounced, moderate - severe at T2-3 through T9-10. Minimal posterior disc osteophytes are seen at T3-4, T5-6 and T6-7. No central canal stenosis is identified. Facet arthropathy seen at T5-6 on the right. No high-grade foraminal narrowing is seen. The cord is not well assessed due to motion artifacts. MRI L Spine: Multilevel lumbar spondylosis with multilevel foraminal narrowing as described. No evidence for fracture or metastatic disease. Suggestion of increased central canal signal of the distal cord on the sagittal images. LP showed WBC of 45, 96% mononuclear, CSF glucose 107, CSF protein 66. Appears to be possible viral meningitis. Recommendations: Solumedrol given for 3 days monitor glucose, give with PPI PT/OT eval will follow Consultation Date/Type/Reason Admit Date/Time Jan 29, 2017 at 19:38 Initial Consult Date 01/30/17 Type of Consultation: ID [id number] HR Interval Summary Free Text/Dictation Clinically unchanged. Did not walk today. Seen by ID and few more tests on CSF are ordered. Exam/Review of Systems Vital Signs Vitals Vital Signs Date Time Temp Pulse Resp B/P Pulse Ox O2 Delivery O2 Flow Rate FiO2 02/06/17 12:03 87 02/06/17 12:00 98.1 19 145/52 93 Intake and Output 02/05/17 02/05/17 02/06/17 15:00 23:00 07:00 Intake Total 500 ml 400 ml Balance 500 ml 400 ml Exam Constitutional: alert, oriented, well developed Psych: nl mood/affect, no complaints Head: atraumatic, normocephalic Eyes: EOMI, nl conjunctiva, nl lids, nl sclera ENMT: mucosa pink and moist, nl external ears & nose, nl lips & teeth, nl nasal mucosa & septum Neck: non-tender, supple Respiratory: clear to auscultation, normal air movement Cardiovascular: nl pulses, regular rate and rhythm Gastrointestinal: nl liver, spleen, non-tender, soft Musculoskeletal: nl extremities to inspection Extremities: normal pulses 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, nl mental status, nl speech, other (Gait was not tested) Skin: nl turgor, rash or lesions Lymph: nl lymph nodes Results Result Diagram: 02/06/17 0947 02/06/17 0947 Results 24 hrs Laboratory Tests Test 02/05/17 17:19 02/05/17 20:29 02/06/17 08:08 02/06/17 09:47 Bedside Glucose 269 H 267 H 196 White Blood Count 12.5 H Red Blood Count 3.59 L Hemoglobin 12.1 L Hematocrit 36.7 L Mean Corpuscular Volume 102.2 H Mean Corpuscular Hemoglobin 33.7 H Mean Corpuscular Hemoglobin Concent 33.0 Red Cell Distribution Width 13.7 Platelet Count 145 Mean Platelet Volume 11.1 H Neutrophils % 92.6 H Lymphocytes % 2.2 L Monocytes % 4.3 Eosinophils % 0.0 Basophils % 0.1 Nucleated Red Blood Cells % 0.0 Neutrophils # 11.6 H Lymphocytes # 0.3 L Monocytes # 0.5 Eosinophils # 0.0 Basophils # 0.0 Nucleated Red Blood Cells # 0.0 Sodium Level 139 Potassium Level 3.9 Chloride Level 103 Carbon Dioxide Level 27 Anion Gap 13 Blood Urea Nitrogen 77 H Creatinine 4.44 #H Glucose Level 194 Calcium Level 8.6 Phosphorus Level 5.1 #H Magnesium Level 1.9 Test 02/06/17 12:12 Bedside Glucose 194 Medications Medications Current Medications Ondansetron HCl (Zofran Inj) 4 mg Q6 PRN IV NAUSEA AND/OR VOMITING Last administered on 02/04/17 20:49; Admin Dose 4 MG; Start 01/30/17 at 00:00 Acetaminophen (Tylenol Tab) 650 mg Q6H PRN PO PAIN AND OR ELEVATED TEMP; Start 01/30/17 at 00:00 Clonidine (Catapres) 0.1 mg TID PRN PO FOR SBP >160 Last administered on 12:10; Admin Dose 0.1 MG; Start 01/30/17 at 00:00 Ergocalciferol (Drisdol) 50,000 unit Q7D PO Last administered on 02/01/17 09: 19; Admin Dose 50,000 UNIT; Start 02/01/17 at 09:00 Febuxostat (Uloric) 40 mg DAILY PO Last administered on 02/06/17 08:11; Admin Dose 40 MG; Start 01/30/17 at 09:00 Hydralazine HCl (Apresoline) 50 mg BID PO Last administered on 02/06/17 08:12 ; Admin Dose 50 MG; Start 01/30/17 at 00:00 Isosorbide Mononitrate (Imdur) 60 mg DAILY PO Last administered on 02/06/17 08 :12; Admin Dose 60 MG; Start 01/30/17 at 09:00 Prasugrel (Effient) 10 mg DAILY PO Last administered on 02/06/17 08:10; Admin Dose 10 MG; Start 01/30/17 at 09:00 Ropinirole HCl (Requip) 0.25 mg HS PO Last administered on 02/05/17 20:57; Admin Dose 0.25 MG; Start 01/30/17 at 21:00 Tamsulosin HCl (Flomax) 0.4 mg DAILY@21 PO Last administered on 02/05/17 20:57 ; Admin Dose 0.4 MG; Start 01/30/17 at 21:00 Fish Oil (Fish Oil) 1,000 mg BID PO Last administered on 02/06/17 08:12; Admin Dose 1,000 MG; Start 01/31/17 at 09:30 Atorvastatin Calcium (Lipitor) 10 mg QHS PO Last administered on 02/05/17 20: 57; Admin Dose 10 MG; Start 01/30/17 at 21:00 Multivit/Ca Carb/ B Cmplx/FA/Prenat (Paulina-Chrissy) 1 tab DAILY PO Last administered on 02/06/17 08:12; Admin Dose 1 TAB; Start 01/30/17 at 09:00 Carvedilol (Coreg) 3.125 mg BID PO Last administered on 02/06/17 08:13; Admin Dose 3.125 MG; Start 01/30/17 at 00:00 Miscellaneous Information 1 ea NOTE XX ; Start 01/30/17 at 01:00 Glucose (Glutose) 15 gm Q15M PRN PO DECREASED GLUCOSE; Start 01/30/17 at 01:00 Glucose (Glutose) 22.5 gm Q15M PRN PO DECREASED GLUCOSE; Start 01/30/17 at 01: 00 Dextrose (D50w Syringe) 25 ml Q15M PRN IV DECREASED GLUCOSE; Start 01/30/17 at 01:00 Dextrose (D50w Syringe) 50 ml Q15M PRN IV DECREASED GLUCOSE; Start 01/30/17 at 01:00 Glucagon (Glucagen) 1 mg Q15M PRN IM DECREASED GLUCOSE; Start 01/30/17 at 01:00 Glucose (Glutose) 15 gm Q15M PRN BUCCAL DECREASED GLUCOSE; Start 01/30/17 at 01 :00 Diagnostic Test (Pha) (Accu-Chek) 1 ea 02 XX Last administered on 02/04/17 02: 27; Admin Dose 1 EA; Start 01/31/17 at 02:00 Nifedipine (Procardia Xl) 30 mg BID PO Last administered on 02/06/17 08:11; Admin Dose 30 MG; Start 02/01/17 at 21:00 Nicotine (Nicoderm 14 Mg/ 24hr) 1 patch DAILY TRANSDERM Last administered on 08:10; Admin Dose 1 PATCH; Start 02/05/17 at 09:00 Famotidine (Pepcid) 20 mg DAILY PO Last administered on 02/06/17 08:12; Admin Dose 20 MG; Start 02/05/17 at 12:00 DEMI ARCHULETA MD Feb 06, 2017 14:59
[2017-02-06] MEDS: TAMSULOSIN (SR) 0.4 MG CAP PO SCH (20:26)
[2017-02-06] MEDS: ATORVASTATIN 10 MG TAB PO SCH (20:26)
[2017-02-06] MEDS: ROPINIROLE 0.25 MG TAB PO SCH (20:38)
[2017-02-07] VITALS (11 sets, daily range): BP systolic 112–177; BP diastolic 48–74; PULSE 73–90; RESP 16–20
[2017-02-07] MEDS: ACCU-CHEK XX SCH (02:00)
[2017-02-07] MEDS: INSULIN ASPART [NOVOLOG] 3 ML PEN SC SCH ×4 (08:00→21:00)
[2017-02-07 08:10] LABS: ABNORMAL IP MESSAGE 1; BASOPHILS % 0.1 % (0.0-2.0); HEMATOCRIT 38.3 % (42.0-52.0); HEMOGLOBIN 12.3 g/dl (14.0-18.0); LYMPHOCYTES # 0.3 10^3/ul (0.8-2.9); MEAN CORPUSCULAR HEMOGLOBIN 33.5 pg (29.0-33.0); MEAN CORPUSCULAR HGB CONC 32.1 g/dl (32.0-37.0); MEAN CORPUSCULAR VOLUME 104.4 fl (82.0-101.0); MEAN PLATELET VOLUME 10.9 fl (7.4-10.4); MONOCYTE # 0.7 10^3/ul (0.3-0.9); MONOCYTES % 7.1 % (0.0-11.0); NEUTROPHIL # 8.1 10^3/ul (1.6-7.5); NEUTROPHILS % 89.3 % (39.0-77.0); PLATELET COUNT 125 10^3/UL (140-415); POSITIVE DIFF @See below; RED BLOOD COUNT 3.67 10^6/ul (4.70-6.10); RED CELL DISTRIBUTION WIDTH 13.6 % (11.5-14.5); WHITE BLOOD COUNT 9.1 10^3/ul (4.8-10.8)
[2017-02-07 08:30] LABS: CALCIUM 8.5 mg/dl (8.4-10.2); CREATININE 5.38 mg/dl (0.61-1.24); POTASSIUM 4.6 mmol/L (3.5-5.1)
[2017-02-07 08:33] LABS: MAGNESIUM 1.9 mg/dl (1.7-2.5); PHOSPHORUS 5.7 mg/dl (2.5-4.9)
[2017-02-07] MEDS: MULTIVIT/CA CARB/B CMPLX/FA TAB PO SCH (09:25)
[2017-02-07] MEDS: NICOTINE (14 MG/24 HR) PATCH TRANSDERM SCH (09:25)
[2017-02-07] MEDS: FEBUXOSTAT 40 MG TABLET PO SCH (09:25)
[2017-02-07] MEDS: FISH OIL 1,000 MG CAP PO SCH ×2 (09:25→21:26)
[2017-02-07] MEDS: PRASUGREL HYDROCHLORIDE 10 MG TABLET PO SCH (09:25)
[2017-02-07] MEDS: SEVELAMER 800 MG TAB PO SCH ×4 (09:26→18:05)
[2017-02-07] MEDS: FAMOTIDINE 20 MG TAB PO SCH (09:26)
--- NOTE | 2017-02-07 09:29 | PN ---
Date/Time of Note Date/Time of Note DATE: 02/07/17 TIME: 09:28 Assessment/Plan VTE Prophylaxis VTE Prophylaxis Intervention: SCD's Lines/Catheters IV C[facility]ter Type [facility]from [facility] Urinary Cath still in place: No Assessment/Plan Chief Complaint/Hosp Course 1. Bilateral lower extremity weakness. Brain imaging studies negative for any acute findings. S/P IV steroids by Neurology. Lumbar spine CT showing multilevel central canal and neural foraminal stenosis. S/P lumbar puncture. CSF analysis suggestive of viral meningitis. Infectious Diseases following the patient. 2. End-stage renal disease on hemodialysis. Being followed by nephrology. 3. Essential hypertension. Continue antihypertensives. 4. Diabetes mellitus. Continue sliding scale insulin. 5. CAD. Continue antiplatelet therapy. 6. Dyslipidemia. Continue statins. 7. Anemia of chronic kidney disease. Monitor H&H closely. Off Epogen as per nephrology. 8. Fluids, electrolytes, and nutrition. Carbohydrate controlled, renal diet. 9. DVT prophylaxis. Bilateral sequential compression devices. 10. Plan. S/P lumbar puncture. CSF analysis showed high WBC. CSF cultures and viral serology including West Nile virus serology pending. Await further recommendations from Neurology and ID. Obtain KUB because of abdominal distention. Start stool softeners and PRN laxatives. Problems: Subjective 24 Hr Interval Summary Free Text/Dictation Complains of abdominal discomfort. Exam/Review of Systems Vital Signs Vitals Vital Signs Date Time Temp Pulse Resp B/P Pulse Ox O2 Delivery O2 Flow Rate FiO2 02/07/17 08:08 98.2 74 16 124/48 96 Intake and Output 02/06/17 02/06/17 02/07/17 15:00 23:00 07:00 Intake Total 300 ml 400 ml Output Total 3300 ml 1400 ml Balance -3000 ml -1000 ml Exam General: Adequately build 81 year-old male lying in bed in no apparent distress. HEENT: Normocephalic, atraumatic. Eyes: Anicteric sclerae, conjunctivae clear. ENT: Nasal septum midline, oral mucosa moist. Neck supple, no JVD noticed. Respiratory: Bilaterally clear breath sounds. No use of accessory muscles of respiration. No adventitious breath sounds. Cardiovascular: S1, S2 heard. No murmurs or gallops. Abdomen: Soft, nontender, and nondistended. Bowel sounds positive in all 4 quadrants. Genitourinary: Deferred. Extremities: No cyanosis, no clubbing, no edema. Peripheral pulses palpable. Neurologic: Cranial nerves II through XII grossly intact. The patient is awake, alert, and oriented. B/L LE 4/5 strength. B/L UE 5/5 strength. Skin: Normal skin turgor. No skin rashes. Results Result Diagram: 02/07/17 0723 02/07/17 0723 Results 24 hrs Laboratory Tests Test 02/06/17 09:47 02/06/17 12:12 02/06/17 17:14 02/06/17 21:17 White Blood Count 12.5 H Red Blood Count 3.59 L Hemoglobin 12.1 L Hematocrit 36.7 L Mean Corpuscular Volume 102.2 H Mean Corpuscular Hemoglobin 33.7 H Mean Corpuscular Hemoglobin Concent 33.0 Red Cell Distribution Width 13.7 Platelet Count 145 Mean Platelet Volume 11.1 H Neutrophils % 92.6 H Lymphocytes % 2.2 L Monocytes % 4.3 Eosinophils % 0.0 Basophils % 0.1 Nucleated Red Blood Cells % 0.0 Neutrophils # 11.6 H Lymphocytes # 0.3 L Monocytes # 0.5 Eosinophils # 0.0 Basophils # 0.0 Nucleated Red Blood Cells # 0.0 Sodium Level 139 Potassium Level 3.9 Chloride Level 103 Carbon Dioxide Level 27 Anion Gap 13 Blood Urea Nitrogen 77 H Creatinine 4.44 #H Glucose Level 194 Calcium Level 8.6 Phosphorus Level 5.1 #H Magnesium Level 1.9 Bedside Glucose 194 171 173 Test 02/07/17 07:23 White Blood Count 9.1 # Red Blood Count 3.67 L Hemoglobin 12.3 L Hematocrit 38.3 L Mean Corpuscular Volume 104.4 H Mean Corpuscular Hemoglobin 33.5 H Mean Corpuscular Hemoglobin Concent 32.1 Red Cell Distribution Width 13.6 Platelet Count 125 L Mean Platelet Volume 10.9 H Neutrophils % 89.3 H Lymphocytes % 3.0 L Monocytes % 7.1 Eosinophils % 0.0 Basophils % 0.1 Nucleated Red Blood Cells % 0.0 Neutrophils # 8.1 H Lymphocytes # 0.3 L Monocytes # 0.7 Eosinophils # 0.0 Basophils # 0.0 Nucleated Red Blood Cells # 0.0 Sodium Level 136 Potassium Level 4.6 Chloride Level 102 Carbon Dioxide Level 27 Anion Gap 12 Blood Urea Nitrogen 98 H Creatinine 5.38 H Glucose Level 142 # Calcium Level 8.5 Phosphorus Level 5.7 H Magnesium Level 1.9 Medications Medications Current Medications Ondansetron HCl (Zofran Inj) 4 mg Q6 PRN IV NAUSEA AND/OR VOMITING Last administered on 02/04/17 20:49; Admin Dose 4 MG; Start 01/30/17 at 00:00 Acetaminophen (Tylenol Tab) 650 mg Q6H PRN PO PAIN AND OR ELEVATED TEMP; Start 01/30/17 at 00:00 Clonidine (Catapres) 0.1 mg TID PRN PO FOR SBP >160 Last administered on 00:29; Admin Dose 0.1 MG; Start 01/30/17 at 00:00 Ergocalciferol (Drisdol) 50,000 unit Q7D PO Last administered on 02/01/17 09: 19; Admin Dose 50,000 UNIT; Start 02/01/17 at 09:00 Febuxostat (Uloric) 40 mg DAILY PO Last administered on 02/06/17 08:11; Admin Dose 40 MG; Start 01/30/17 at 09:00 Hydralazine HCl (Apresoline) 50 mg BID PO Last administered on 02/06/17 20:27 ; Admin Dose 50 MG; Start 01/30/17 at 00:00 Isosorbide Mononitrate (Imdur) 60 mg DAILY PO Last administered on 02/06/17 08 :12; Admin Dose 60 MG; Start 01/30/17 at 09:00 Prasugrel (Effient) 10 mg DAILY PO Last administered on 02/06/17 08:10; Admin Dose 10 MG; Start 01/30/17 at 09:00 Ropinirole HCl (Requip) 0.25 mg HS PO Last administered on 02/06/17 20:38; Admin Dose 0.25 MG; Start 01/30/17 at 21:00 Tamsulosin HCl (Flomax) 0.4 mg DAILY@21 PO Last administered on 02/06/17 20:26 ; Admin Dose 0.4 MG; Start 01/30/17 at 21:00 Fish Oil (Fish Oil) 1,000 mg BID PO Last administered on 02/06/17 21:22; Admin Dose 1,000 MG; Start 01/31/17 at 09:30 Atorvastatin Calcium (Lipitor) 10 mg QHS PO Last administered on 02/06/17 20: 26; Admin Dose 10 MG; Start 01/30/17 at 21:00 Multivit/Ca Carb/ B Cmplx/FA/Prenat (Paulina-Chrissy) 1 tab DAILY PO Last administered on 02/06/17 08:12; Admin Dose 1 TAB; Start 01/30/17 at 09:00 Carvedilol (Coreg) 3.125 mg BID PO Last administered on 02/06/17 20:27; Admin Dose 3.125 MG; Start 01/30/17 at 00:00 Miscellaneous Information 1 ea NOTE XX ; Start 01/30/17 at 01:00 Glucose (Glutose) 15 gm Q15M PRN PO DECREASED GLUCOSE; Start 01/30/17 at 01:00 Glucose (Glutose) 22.5 gm Q15M PRN PO DECREASED GLUCOSE; Start 01/30/17 at 01: 00 Dextrose (D50w Syringe) 25 ml Q15M PRN IV DECREASED GLUCOSE; Start 01/30/17 at 01:00 Dextrose (D50w Syringe) 50 ml Q15M PRN IV DECREASED GLUCOSE; Start 01/30/17 at 01:00 Glucagon (Glucagen) 1 mg Q15M PRN IM DECREASED GLUCOSE; Start 01/30/17 at 01:00 Glucose (Glutose) 15 gm Q15M PRN BUCCAL DECREASED GLUCOSE; Start 01/30/17 at 01 :00 Diagnostic Test (Pha) (Accu-Chek) 1 ea 02 XX Last administered on 02/04/17 02: 27; Admin Dose 1 EA; Start 01/31/17 at 02:00 Nifedipine (Procardia Xl) 30 mg BID PO Last administered on 02/06/17 20:26; Admin Dose 30 MG; Start 02/01/17 at 21:00 Nicotine (Nicoderm 14 Mg/ 24hr) 1 patch DAILY TRANSDERM Last administered on 08:10; Admin Dose 1 PATCH; Start 02/05/17 at 09:00 Famotidine (Pepcid) 20 mg DAILY PO Last administered on 02/06/17 08:12; Admin Dose 20 MG; Start 02/05/17 at 12:00 ALICIA ISAACS NP Feb 07, 2017 09:29
[2017-02-07] MEDS: ISOSORBIDE MONONITRATE(SR)60 MG TAB PO SCH (09:30)
[2017-02-07] MEDS: NIFEdipine (XL) 30 MG TAB PO SCH ×2 (09:39→21:28)
--- NOTE | 2017-02-07 09:58 | PN ---
DATE: 02/07/2017 SUBJECTIVE DATA: The patient had hemodialysis yesterday, tolerated well. No other events noted. OBJECTIVE DATA: VITAL SIGNS: Blood pressure 124/48, temperature 98.2. Pulse 74, respirations 16. HEENT: Head is normocephalic. NECK: Supple. HEART: Regular rate. LUNGS: Diminished breath sounds at the base. ABDOMEN: Soft, nontender to palpation. No rebound or guarding. EXTREMITIES: Negative for clubbing, cyanosis. No edema. DERMATOLOGIC: Clean. No rashes. MUSCULOSKELETAL: No joint effusion. NEUROLOGIC: No change in exam. MEDICATIONS: Reviewed. LABORATORY DATA: Shows sodium 136, potassium 4.6, chloride 98, creatinine 5.38. White count 9.1, hemoglobin 10.3, hematocrit 38.3, platelet count 125,000. ASSESSMENT AND PLAN: 1. End-stage renal disease. Will plan for hemodialysis tomorrow. 2. Mineral bone disorder. Monitor calcium and phosphorus levels. 3. Anemia. Monitor hemoglobin and hematocrit levels. Continue Epogen. 4. Congestive heart failure. Continue ultrafiltration dialysis. 5. Hypertension. Continue current blood pressure regimen. 6. Diabetes. Continue Accu-Cheks, insulin sliding scale. 7. Viral meningitis with lower extremity weakness. Continue to monitor. Follow up with Neurology. Dictated By: Arvind Galindo DO /[email or web address]/dale /Document#: [id number]
[2017-02-07] MEDS: ACETAMINOPHEN 325 MG TAB PO PRN (14:28)
--- NOTE | 2017-02-07 14:48 | CONS ---
Date/Time of Note Date/Time of Note DATE: 02/07/17 TIME: 14:47 Assessment/Plan Assessment/Plan Chief Complaint/Hosp Course Bilateral lower extremity weakness Problems: Additional Assessment/Plan acute onset LE weakness unclear etiology MRI T Spine: There is multilevel disc space narrowing which appears more pronounced, moderate - severe at T2-3 through T9-10. Minimal posterior disc osteophytes are seen at T3-4, T5-6 and T6-7. No central canal stenosis is identified. Facet arthropathy seen at T5-6 on the right. No high-grade foraminal narrowing is seen. The cord is not well assessed due to motion artifacts. MRI L Spine: Multilevel lumbar spondylosis with multilevel foraminal narrowing as described. No evidence for fracture or metastatic disease. Suggestion of increased central canal signal of the distal cord on the sagittal images. LP showed WBC of 45, 96% mononuclear, CSF glucose 107, CSF protein 66. Appears to be possible viral meningitis. Recommendations: Solumedrol given for 3 days monitor glucose, give with PPI PT/OT eval will follow Consultation Date/Type/Reason Admit Date/Time Jan 29, 2017 at 19:38 Initial Consult Date 01/30/17 Type of Consultation: ID [id number] HR Interval Summary Free Text/Dictation Clinically unchanged Exam/Review of Systems Vital Signs Vitals Vital Signs Date Time Temp Pulse Resp B/P Pulse Ox O2 Delivery O2 Flow Rate FiO2 02/07/17 12:00 77 02/07/17 11:43 98.1 16 112/51 95 Intake and Output 02/06/17 02/06/17 02/07/17 15:00 23:00 07:00 Intake Total 300 ml 400 ml Output Total 3300 ml 1400 ml Balance -3000 ml -1000 ml Exam Constitutional: alert, oriented, well developed Psych: nl mood/affect, no complaints Head: atraumatic, normocephalic Eyes: EOMI, nl conjunctiva, nl lids, nl sclera ENMT: mucosa pink and moist, nl external ears & nose, nl lips & teeth, nl nasal mucosa & septum Neck: non-tender, supple Respiratory: clear to auscultation, normal air movement Cardiovascular: nl pulses, regular rate and rhythm Gastrointestinal: nl liver, spleen, non-tender, soft Musculoskeletal: nl extremities to inspection 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: EYELET ROW MARKER II-XII intact, nl mental status, nl speech, other (Gait was not tested) Skin: nl turgor Lymph: nl lymph nodes Results Result Diagram: 02/07/17 0723 02/07/17 0723 Results 24 hrs Laboratory Tests Test 02/06/17 17:14 02/06/17 21:17 02/07/17 07:23 02/07/17 09:33 Bedside Glucose 171 173 120 White Blood Count 9.1 # Red Blood Count 3.67 L Hemoglobin 12.3 L Hematocrit 38.3 L Mean Corpuscular Volume 104.4 H Mean Corpuscular Hemoglobin 33.5 H Mean Corpuscular Hemoglobin Concent 32.1 Red Cell Distribution Width 13.6 Platelet Count 125 L Mean Platelet Volume 10.9 H Neutrophils % 89.3 H Lymphocytes % 3.0 L Monocytes % 7.1 Eosinophils % 0.0 Basophils % 0.1 Nucleated Red Blood Cells % 0.0 Neutrophils # 8.1 H Lymphocytes # 0.3 L Monocytes # 0.7 Eosinophils # 0.0 Basophils # 0.0 Nucleated Red Blood Cells # 0.0 Sodium Level 136 Potassium Level 4.6 Chloride Level 102 Carbon Dioxide Level 27 Anion Gap 12 Blood Urea Nitrogen 98 H Creatinine 5.38 H Glucose Level 142 # Calcium Level 8.5 Phosphorus Level 5.7 H Magnesium Level 1.9 Test 02/07/17 12:04 Bedside Glucose 159 Medications Medications Current Medications Ondansetron HCl (Zofran Inj) 4 mg Q6 PRN IV NAUSEA AND/OR VOMITING Last administered on 02/04/17 20:49; Admin Dose 4 MG; Start 01/30/17 at 00:00 Acetaminophen (Tylenol Tab) 650 mg Q6H PRN PO PAIN AND OR ELEVATED TEMP Last administered on 02/07/17 14:28; Admin Dose 650 MG; Start 01/30/17 at 00:00 Clonidine (Catapres) 0.1 mg TID PRN PO FOR SBP >160 Last administered on 00:29; Admin Dose 0.1 MG; Start 01/30/17 at 00:00 Ergocalciferol (Drisdol) 50,000 unit Q7D PO Last administered on 02/01/17 09: 19; Admin Dose 50,000 UNIT; Start 02/01/17 at 09:00 Febuxostat (Uloric) 40 mg DAILY PO Last administered on 02/07/17 09:25; Admin Dose 40 MG; Start 01/30/17 at 09:00 Hydralazine HCl (Apresoline) 50 mg BID PO Last administered on 02/07/17 09:30 ; Admin Dose 50 MG; Start 01/30/17 at 00:00 Isosorbide Mononitrate (Imdur) 60 mg DAILY PO Last administered on 02/07/17 09 :30; Admin Dose 60 MG; Start 01/30/17 at 09:00 Prasugrel (Effient) 10 mg DAILY PO Last administered on 02/07/17 09:25; Admin Dose 10 MG; Start 01/30/17 at 09:00 Ropinirole HCl (Requip) 0.25 mg HS PO Last administered on 02/06/17 20:38; Admin Dose 0.25 MG; Start 01/30/17 at 21:00 Tamsulosin HCl (Flomax) 0.4 mg DAILY@21 PO Last administered on 02/06/17 20:26 ; Admin Dose 0.4 MG; Start 01/30/17 at 21:00 Fish Oil (Fish Oil) 1,000 mg BID PO Last administered on 02/07/17 09:25; Admin Dose 1,000 MG; Start 01/31/17 at 09:30 Atorvastatin Calcium (Lipitor) 10 mg QHS PO Last administered on 02/06/17 20: 26; Admin Dose 10 MG; Start 01/30/17 at 21:00 Multivit/Ca Carb/ B Cmplx/FA/Prenat (Paulina-Chrissy) 1 tab DAILY PO Last administered on 02/07/17 09:25; Admin Dose 1 TAB; Start 01/30/17 at 09:00 Carvedilol (Coreg) 3.125 mg BID PO Last administered on 02/07/17 09:30; Admin Dose 3.125 MG; Start 01/30/17 at 00:00 Miscellaneous Information 1 ea NOTE XX ; Start 01/30/17 at 01:00 Glucose (Glutose) 15 gm Q15M PRN PO DECREASED GLUCOSE; Start 01/30/17 at 01:00 Glucose (Glutose) 22.5 gm Q15M PRN PO DECREASED GLUCOSE; Start 01/30/17 at 01: 00 Dextrose (D50w Syringe) 25 ml Q15M PRN IV DECREASED GLUCOSE; Start 01/30/17 at 01:00 Dextrose (D50w Syringe) 50 ml Q15M PRN IV DECREASED GLUCOSE; Start 01/30/17 at 01:00 Glucagon (Glucagen) 1 mg Q15M PRN IM DECREASED GLUCOSE; Start 01/30/17 at 01:00 Glucose (Glutose) 15 gm Q15M PRN BUCCAL DECREASED GLUCOSE; Start 01/30/17 at 01 :00 Diagnostic Test (Pha) (Accu-Chek) 1 ea 02 XX Last administered on 02/04/17 02: 27; Admin Dose 1 EA; Start 01/31/17 at 02:00 Nifedipine (Procardia Xl) 30 mg BID PO Last administered on 02/07/17 09:39; Admin Dose 30 MG; Start 02/01/17 at 21:00 Nicotine (Nicoderm 14 Mg/ 24hr) 1 patch DAILY TRANSDERM Last administered on 09:25; Admin Dose 1 PATCH; Start 02/05/17 at 09:00 Famotidine (Pepcid) 20 mg DAILY PO Last administered on 02/07/17 09:26; Admin Dose 20 MG; Start 02/05/17 at 12:00 DEMI ARCHULETA MD Feb 07, 2017 14:48
[2017-02-07] MEDS ORDERED: BISACODYL 10 MG SUPP PR ONE (15:00)
[2017-02-07] MEDS: DOCUSATE SODIUM 100 MG CAP PO SCH (15:41)
--- NOTE | 2017-02-07 16:18 | CONS ---
Date/Time of Note Date/Time of Note DATE: 02/07/17 TIME: 16:13 Assessment/Plan Assessment/Plan Chief Complaint/Hosp Course Assessment/Plan Chief Complaint/Hosp Course Alert. Lying in bed. No Fevers. Microbiology: CSF cultures preliminary negative Physical examination: Obese, well-developed elderly [place] man who is alert in no distress. Head atraumatic normocephalic sclerae nonicteric vehicle mucosa pink neck is supple chest rise symmetrical breath sounds clear heart S1- S2 abdomen soft bowel sounds present extremities without cyanosis Assessment: 1. Viral meningitis 2. End-stage renal disease, hemodialysis dependent 3. Diabetes. 4. Coronary artery disease and hypertension Plan: Patient remains stable, off antibiotics, pending final cultures, pending West Nile virus serology, neurology rec-s. DW patient. Problems: Consultation Date/Type/Reason Admit Date/Time Jan 29, 2017 at 19:38 Initial Consult Date 01/30/17 Type of Consultation: ID Exam/Review of Systems Vital Signs Vitals Vital Signs Date Time Temp Pulse Resp B/P Pulse Ox O2 Delivery O2 Flow Rate FiO2 02/07/17 12:00 77 02/07/17 11:43 98.1 16 112/51 95 Intake and Output 02/06/17 02/06/17 02/07/17 15:00 23:00 07:00 Intake Total 300 ml 400 ml Output Total 3300 ml 1400 ml Balance -3000 ml -1000 ml Results Result Diagram: 02/07/17 0723 02/07/17 0723 Results 24 hrs Laboratory Tests Test 02/06/17 17:14 02/06/17 21:17 02/07/17 07:23 02/07/17 09:33 Bedside Glucose 171 173 120 White Blood Count 9.1 # Red Blood Count 3.67 L Hemoglobin 12.3 L Hematocrit 38.3 L Mean Corpuscular Volume 104.4 H Mean Corpuscular Hemoglobin 33.5 H Mean Corpuscular Hemoglobin Concent 32.1 Red Cell Distribution Width 13.6 Platelet Count 125 L Mean Platelet Volume 10.9 H Neutrophils % 89.3 H Lymphocytes % 3.0 L Monocytes % 7.1 Eosinophils % 0.0 Basophils % 0.1 Nucleated Red Blood Cells % 0.0 Neutrophils # 8.1 H Lymphocytes # 0.3 L Monocytes # 0.7 Eosinophils # 0.0 Basophils # 0.0 Nucleated Red Blood Cells # 0.0 Sodium Level 136 Potassium Level 4.6 Chloride Level 102 Carbon Dioxide Level 27 Anion Gap 12 Blood Urea Nitrogen 98 H Creatinine 5.38 H Glucose Level 142 # Calcium Level 8.5 Phosphorus Level 5.7 H Magnesium Level 1.9 Test 02/07/17 12:04 Bedside Glucose 159 Medications Medications Current Medications Ondansetron HCl (Zofran Inj) 4 mg Q6 PRN IV NAUSEA AND/OR VOMITING Last administered on 02/04/17 20:49; Admin Dose 4 MG; Start 01/30/17 at 00:00 Acetaminophen (Tylenol Tab) 650 mg Q6H PRN PO PAIN AND OR ELEVATED TEMP Last administered on 02/07/17 14:28; Admin Dose 650 MG; Start 01/30/17 at 00:00 Clonidine (Catapres) 0.1 mg TID PRN PO FOR SBP >160 Last administered on 00:29; Admin Dose 0.1 MG; Start 01/30/17 at 00:00 Ergocalciferol (Drisdol) 50,000 unit Q7D PO Last administered on 02/01/17 09: 19; Admin Dose 50,000 UNIT; Start 02/01/17 at 09:00 Febuxostat (Uloric) 40 mg DAILY PO Last administered on 02/07/17 09:25; Admin Dose 40 MG; Start 01/30/17 at 09:00 Hydralazine HCl (Apresoline) 50 mg BID PO Last administered on 02/07/17 09:30 ; Admin Dose 50 MG; Start 01/30/17 at 00:00 Isosorbide Mononitrate (Imdur) 60 mg DAILY PO Last administered on 02/07/17 09 :30; Admin Dose 60 MG; Start 01/30/17 at 09:00 Prasugrel (Effient) 10 mg DAILY PO Last administered on 02/07/17 09:25; Admin Dose 10 MG; Start 01/30/17 at 09:00 Ropinirole HCl (Requip) 0.25 mg HS PO Last administered on 02/06/17 20:38; Admin Dose 0.25 MG; Start 01/30/17 at 21:00 Tamsulosin HCl (Flomax) 0.4 mg DAILY@21 PO Last administered on 02/06/17 20:26 ; Admin Dose 0.4 MG; Start 01/30/17 at 21:00 Fish Oil (Fish Oil) 1,000 mg BID PO Last administered on 02/07/17 09:25; Admin Dose 1,000 MG; Start 01/31/17 at 09:30 Atorvastatin Calcium (Lipitor) 10 mg QHS PO Last administered on 02/06/17 20: 26; Admin Dose 10 MG; Start 01/30/17 at 21:00 Multivit/Ca Carb/ B Cmplx/FA/Prenat (Paulina-Chrissy) 1 tab DAILY PO Last administered on 02/07/17 09:25; Admin Dose 1 TAB; Start 01/30/17 at 09:00 Carvedilol (Coreg) 3.125 mg BID PO Last administered on 02/07/17 09:30; Admin Dose 3.125 MG; Start 01/30/17 at 00:00 Miscellaneous Information 1 ea NOTE XX ; Start 01/30/17 at 01:00 Glucose (Glutose) 15 gm Q15M PRN PO DECREASED GLUCOSE; Start 01/30/17 at 01:00 Glucose (Glutose) 22.5 gm Q15M PRN PO DECREASED GLUCOSE; Start 01/30/17 at 01: 00 Dextrose (D50w Syringe) 25 ml Q15M PRN IV DECREASED GLUCOSE; Start 01/30/17 at 01:00 Dextrose (D50w Syringe) 50 ml Q15M PRN IV DECREASED GLUCOSE; Start 01/30/17 at 01:00 Glucagon (Glucagen) 1 mg Q15M PRN IM DECREASED GLUCOSE; Start 01/30/17 at 01:00 Glucose (Glutose) 15 gm Q15M PRN BUCCAL DECREASED GLUCOSE; Start 01/30/17 at 01 :00 Diagnostic Test (Pha) (Accu-Chek) 1 ea 02 XX Last administered on 02/04/17 02: 27; Admin Dose 1 EA; Start 01/31/17 at 02:00 Nifedipine (Procardia Xl) 30 mg BID PO Last administered on 02/07/17 09:39; Admin Dose 30 MG; Start 02/01/17 at 21:00 Nicotine (Nicoderm 14 Mg/ 24hr) 1 patch DAILY TRANSDERM Last administered on 09:25; Admin Dose 1 PATCH; Start 02/05/17 at 09:00 Famotidine (Pepcid) 20 mg DAILY PO Last administered on 02/07/17 09:26; Admin Dose 20 MG; Start 02/05/17 at 12:00 Docusate Sodium (Colace) 100 mg BID PO Last administered on 02/07/17 15:41; Admin Dose 100 MG; Start 02/07/17 at 15:00 Polyethylene Glycol (Miralax) 17 gm BID PO ; Start 02/07/17 at 21:00 Bisacodyl (Dulcolax) 10 mg DAILY PRN PO CONSTIPATION; Start 02/07/17 at 16:30 ALINA SLOAN NP Feb 07, 2017 16:18
[2017-02-07] MEDS ORDERED: BISACODYL (EC) 5 MG TAB PO PRN (16:30)
--- NOTE | 2017-02-07 18:28 | RADRPT ---
PROCEDURE: XR Abdomen. CLINICAL INDICATION: Abdomen pain. TECHNIQUE: AP supine abdomen x-ray. COMPARISON: None. FINDINGS: The bowel gas pattern is normal. There is no evidence of obstruction. There are no abnormal calcifications overlying the urinary tracts. The osseous structures are unremarkable. Stents are present bilaterally in the iliac regions. Vascular calcifications are present consistent with atherosclerosis. IMPRESSION: 1. Bilateral iliac stents. 2. Atherosclerosis. 3. No evidence of bowel obstruction. RPTAT: QQ .Bernabe Riley MD, MD Date Time Electronically viewed and signed by .Bernabe Riley MD, on 02/07/2017 18:28 .R/
[2017-02-07] MEDS: POLYETHYLENE GLYCOL 17 GM PACKET PO SCH (21:00)
[2017-02-07] MEDS: TAMSULOSIN (SR) 0.4 MG CAP PO SCH (21:26)
[2017-02-07] MEDS: ROPINIROLE 0.25 MG TAB PO SCH (21:26)
[2017-02-07] MEDS: ATORVASTATIN 10 MG TAB PO SCH (21:27)
[2017-02-07 22:29] LABS: ABNORMAL IP MESSAGE 1; BASOPHILS % 0.3 % (0.0-2.0); EOSINOPHILS % 0.3 % (0.0-7.0); HEMATOCRIT 38.9 % (42.0-52.0); HEMOGLOBIN 12.8 g/dl (14.0-18.0); LYMPHOCYTES # 0.3 10^3/ul (0.8-2.9); LYMPHOCYTES % 2.3 % (15.0-51.0); MEAN CORPUSCULAR HGB CONC 32.9 g/dl (32.0-37.0); MEAN CORPUSCULAR VOLUME 103.5 fl (82.0-101.0); MEAN PLATELET VOLUME 10.4 fl (7.4-10.4); MONOCYTE # 0.3 10^3/ul (0.3-0.9); MONOCYTES % 2.4 % (0.0-11.0); NEUTROPHIL # 10.4 10^3/ul (1.6-7.5); NEUTROPHILS % 93.9 % (39.0-77.0); PLATELET COUNT 128 10^3/UL (140-415); POSITIVE DIFF @See below; RED BLOOD COUNT 3.76 10^6/ul (4.70-6.10); RED CELL DISTRIBUTION WIDTH 13.6 % (11.5-14.5); WHITE BLOOD COUNT 11.1 10^3/ul (4.8-10.8)
[2017-02-07 22:46] LABS: CALCIUM 8.2 mg/dl (8.4-10.2); CREATININE 5.65 mg/dl (0.61-1.24); MAGNESIUM 1.9 mg/dl (1.7-2.5); PHOSPHORUS 5.6 mg/dl (2.5-4.9); POTASSIUM 4.8 mmol/L (3.5-5.1)
[2017-02-08] VITALS (21 sets, daily range): BP systolic 122–169; BP diastolic 48–79; PULSE 81–207; RESP 18–20
--- NOTE | 2017-02-08 00:47 | RADRPT ---
PROCEDURE: XR Chest. CLINICAL INDICATION: Shortness of breath. TECHNIQUE: AP Portable chest. COMPARISON: 02/06/2016 FINDINGS: There is mild to moderate cardiomegaly. A small amount of fluid is noted within the minor fissure. No focal infiltrates are seen. The osseous structures are unremarkable. IMPRESSION: Small right pleural effusion. RPTAT: HIKT .Pedro Guallpa MD, MD Date Time Electronically viewed and signed by .Pedro Guallpa MD, MD on 02/08/2017 00:47 .T/
[2017-02-08] MEDS: ACETAMINOPHEN 325 MG TAB PO PRN ×3 (01:11→17:55)
[2017-02-08] MEDS: ACCU-CHEK XX SCH (02:00)
[2017-02-08] MEDS: INSULIN ASPART [NOVOLOG] 3 ML PEN SC SCH ×4 (08:00→21:45)
[2017-02-08] MEDS: NIFEdipine (XL) 30 MG TAB PO SCH ×2 (08:40→21:18)
[2017-02-08] MEDS: ISOSORBIDE MONONITRATE(SR)60 MG TAB PO SCH (08:40)
[2017-02-08] MEDS: POLYETHYLENE GLYCOL 17 GM PACKET PO SCH ×2 (08:43→21:00)
[2017-02-08] MEDS: FISH OIL 1,000 MG CAP PO SCH ×2 (08:44→21:18)
[2017-02-08] MEDS: FAMOTIDINE 20 MG TAB PO SCH (08:44)
[2017-02-08] MEDS: SEVELAMER 800 MG TAB PO SCH ×3 (08:44→17:55)
[2017-02-08] MEDS: FEBUXOSTAT 40 MG TABLET PO SCH (08:44)
[2017-02-08] MEDS: MULTIVIT/CA CARB/B CMPLX/FA TAB PO SCH (08:44)
[2017-02-08] MEDS: ERGOCALCIFEROL 50,000 UNIT CAP PO SCH (08:44)
[2017-02-08] MEDS: PRASUGREL HYDROCHLORIDE 10 MG TABLET PO SCH (08:44)
[2017-02-08] MEDS: DOCUSATE SODIUM 100 MG CAP PO SCH ×2 (08:44→21:00)
[2017-02-08] MEDS: NICOTINE (14 MG/24 HR) PATCH TRANSDERM SCH (08:45)
[2017-02-08 12:21] LABS: ABNORMAL IP MESSAGE 1; BASOPHILS % 0.2 % (0.0-2.0); EOSINOPHILS % 0.1 % (0.0-7.0); HEMATOCRIT 35.9 % (42.0-52.0); HEMOGLOBIN 11.9 g/dl (14.0-18.0); LYMPHOCYTES # 0.3 10^3/ul (0.8-2.9); LYMPHOCYTES % 2.5 % (15.0-51.0); MEAN CORPUSCULAR HEMOGLOBIN 33.7 pg (29.0-33.0); MEAN CORPUSCULAR HGB CONC 33.1 g/dl (32.0-37.0); MEAN CORPUSCULAR VOLUME 101.7 fl (82.0-101.0); MEAN PLATELET VOLUME 11.1 fl (7.4-10.4); MONOCYTE # 0.5 10^3/ul (0.3-0.9); NEUTROPHIL # 12.3 10^3/ul (1.6-7.5); NEUTROPHILS % 91.8 % (39.0-77.0); PLATELET COUNT 113 10^3/UL (140-415); POSITIVE DIFF @See below; RED BLOOD COUNT 3.53 10^6/ul (4.70-6.10); RED CELL DISTRIBUTION WIDTH 13.8 % (11.5-14.5); WHITE BLOOD COUNT 13.4 10^3/ul (4.8-10.8)
[2017-02-08 12:52] LABS: CALCIUM 8.5 mg/dl (8.4-10.2); CREATININE 6.17 mg/dl (0.61-1.24); MAGNESIUM 1.9 mg/dl (1.7-2.5); PHOSPHORUS 5.9 mg/dl (2.5-4.9); POTASSIUM 4.6 mmol/L (3.5-5.1)
--- NOTE | 2017-02-08 13:52 | PN ---
DATE: 02/08/2017 SUBJECTIVE DATA: Patient seen and examined, no events noted overnight. The patient is pending hemodialysis today. The patient's pain is better controlled. OBJECTIVE DATA: VITAL SIGNS: Blood pressure is 169/74, temperature 98.5, pulse 91, and respirations 20. HEENT: Head is normocephalic. NECK: Supple. HEART: Regular rate. LUNGS: Diminished breath sounds at the base. ABDOMEN: Soft, nontender to palpation. No rebound or guarding. EXTREMITIES: Negative for clubbing, cyanosis. No edema. DERMATOLOGIC: No rashes. MUSCULOSKELETAL: No joint effusions. NEUROLOGIC: No change in exam. MEDICATIONS: Reviewed. LABORATORY AND DIAGNOSTIC DATA: White count 13.4, hemoglobin 9.9, hematocrit 25.9, and platelet count is 113. Sodium 135, potassium 4.8, chloride 103, BUN 109, and creatinine 5.65. ASSESSMENT AND PLAN: 1. End-stage renal disease. Plan for hemodialysis today. We will dialyze for 3 hours, 3K bath, calcium 2.5, ultrafiltration as tolerated. 2. Mineral bone disorder. Monitor calcium and phosphorus levels. 3. Anemia. Monitor hemoglobin and hematocrit levels. Continue Epogen. 4. Congestive heart failure (CHF). We will continue ultrafiltration with hemodialysis. 5. Hypertension. Continue current blood pressure regimen. 6. Diabetes. Continue Accu-Cheks and insulin sliding scale. 7. Viral meningitis, lower extremity weakness. Continue to monitor. Follow up with Neurology. Dictated By: Arvind Galindo DO /waldo/marcin /Document#: [id number]
[2017-02-08] MEDS ORDERED: HYDROCODONE/APAP (5/325) TAB PO PRN (14:00)
[2017-02-08] MEDS: HYDROCODONE/APAP (5/325) TAB PO PRN (15:00)
--- NOTE | 2017-02-08 16:11 | CONS ---
Date/Time of Note Date/Time of Note DATE: 02/08/17 TIME: 16:00 Consultation Date/Type/Reason Admit Date/Time Jan 29, 2017 at 19:38 Initial Consult Date Assessment/Plan Assessment/Plan Subjective: 81 y/o male is being tx for viral meningitis. Denies fever. Per nurse, pt had chills last night, no fevers. S/P HD today. Feeling ok. VS: 169/74 HR:89 R:20 TEMP:98.5 O2S:92% LABS: WBC:13.4 HGB=11.9: HCT=35.9. JKM=665/CREAT-6.17. GLUCOSE 133 Objective: Gen: awake, alert, afebrile. Neck: supple. Heart: RRR, S1,S2 Pulm: CTA, no wheezing , no rales Abdomen: soft, non-tender, +BS Extrm: mild peripheral edema, no cyanosis. Microbiology: CSF cultures preliminary negative. Blood cultures sent &pending. Assessment: 1. Viral meningitis 2. End-stage renal disease, hemodialysis dependent 3. Diabetes. 4. Coronary artery disease and hypertension 5. Leukocytosis- secondary to steroids Plan: Patient remains stable, off antibiotics, pending final cultures, pending West Nile virus serology, neurology rec-s. Monitor labs. Consultation Date/Type/Reason Admit Date/Time Jan 29, 2017 at 19:38 Initial Consult Date 01/30/17 Type of Consultation: ID Type of Consultation: ID Exam/Review of Systems Vital Signs Vitals Vital Signs Date Time Temp Pulse Resp B/P Pulse Ox O2 Delivery O2 Flow Rate FiO2 02/08/17 12:50 96 02/08/17 12:50 18 02/08/17 11:57 98.5 169/74 92 Results Result Diagram: 02/08/17 1100 02/08/17 1100 Results 24 hrs Laboratory Tests Test 02/07/17 17:25 02/07/17 21:25 02/07/17 22:21 02/08/17 08:39 Bedside Glucose 150 146 134 White Blood Count 11.1 #H Red Blood Count 3.76 L Hemoglobin 12.8 L Hematocrit 38.9 L Mean Corpuscular Volume 103.5 H Mean Corpuscular Hemoglobin 34.0 H Mean Corpuscular Hemoglobin Concent 32.9 Red Cell Distribution Width 13.6 Platelet Count 128 L Mean Platelet Volume 10.4 Neutrophils % 93.9 H Lymphocytes % 2.3 L Monocytes % 2.4 Eosinophils % 0.3 Basophils % 0.3 Nucleated Red Blood Cells % 0.0 Neutrophils # 10.4 H Lymphocytes # 0.3 L Monocytes # 0.3 Eosinophils # 0.0 Basophils # 0.0 Nucleated Red Blood Cells # 0.0 Sodium Level 135 Potassium Level 4.8 Chloride Level 103 Carbon Dioxide Level 21 Anion Gap 16 Blood Urea Nitrogen 109 H Creatinine 5.65 H Glucose Level 163 Calcium Level 8.2 L Phosphorus Level 5.6 H Magnesium Level 1.9 Test 02/08/17 11:00 02/08/17 12:06 White Blood Count 13.4 #H Red Blood Count 3.53 L Hemoglobin 11.9 L Hematocrit 35.9 L Mean Corpuscular Volume 101.7 H Mean Corpuscular Hemoglobin 33.7 H Mean Corpuscular Hemoglobin Concent 33.1 Red Cell Distribution Width 13.8 Platelet Count 113 L Mean Platelet Volume 11.1 H Neutrophils % 91.8 H Lymphocytes % 2.5 L Monocytes % 4.0 Eosinophils % 0.1 Basophils % 0.2 Nucleated Red Blood Cells % 0.0 Neutrophils # 12.3 H Lymphocytes # 0.3 L Monocytes # 0.5 Eosinophils # 0.0 Basophils # 0.0 Nucleated Red Blood Cells # 0.0 Sodium Level 136 Potassium Level 4.6 Chloride Level 103 Carbon Dioxide Level 24 Anion Gap 14 Blood Urea Nitrogen 119 H Creatinine 6.17 H Glucose Level 133 Calcium Level 8.5 Phosphorus Level 5.9 H Magnesium Level 1.9 Bedside Glucose 130 Medications Medications Current Medications Ondansetron HCl (Zofran Inj) 4 mg Q6 PRN IV NAUSEA AND/OR VOMITING Last administered on 02/04/17 20:49; Admin Dose 4 MG; Start 01/30/17 at 00:00 Acetaminophen (Tylenol Tab) 650 mg Q6H PRN PO PAIN AND OR ELEVATED TEMP Last administered on 02/08/17 11:04; Admin Dose 650 MG; Start 01/30/17 at 00:00 Clonidine (Catapres) 0.1 mg TID PRN PO FOR SBP >160 Last administered on 00:29; Admin Dose 0.1 MG; Start 01/30/17 at 00:00 Ergocalciferol (Drisdol) 50,000 unit Q7D PO Last administered on 02/08/17 08: 44; Admin Dose 50,000 UNIT; Start 02/01/17 at 09:00 Febuxostat (Uloric) 40 mg DAILY PO Last administered on 02/08/17 08:44; Admin Dose 40 MG; Start 01/30/17 at 09:00 Hydralazine HCl (Apresoline) 50 mg BID PO Last administered on 02/07/17 21:27 ; Admin Dose 50 MG; Start 01/30/17 at 00:00 Isosorbide Mononitrate (Imdur) 60 mg DAILY PO Last administered on 02/07/17 09 :30; Admin Dose 60 MG; Start 01/30/17 at 09:00 Prasugrel (Effient) 10 mg DAILY PO Last administered on 02/08/17 08:44; Admin Dose 10 MG; Start 01/30/17 at 09:00 Ropinirole HCl (Requip) 0.25 mg HS PO Last administered on 02/07/17 21:26; Admin Dose 0.25 MG; Start 01/30/17 at 21:00 Tamsulosin HCl (Flomax) 0.4 mg DAILY@21 PO Last administered on 02/07/17 21:26 ; Admin Dose 0.4 MG; Start 01/30/17 at 21:00 Fish Oil (Fish Oil) 1,000 mg BID PO Last administered on 02/08/17 08:44; Admin Dose 1,000 MG; Start 01/31/17 at 09:30 Atorvastatin Calcium (Lipitor) 10 mg QHS PO Last administered on 02/07/17 21: 27; Admin Dose 10 MG; Start 01/30/17 at 21:00 Multivit/Ca Carb/ B Cmplx/FA/Prenat (Paulina-Chrissy) 1 tab DAILY PO Last administered on 02/08/17 08:44; Admin Dose 1 TAB; Start 01/30/17 at 09:00 Carvedilol (Coreg) 3.125 mg BID PO Last administered on 02/07/17 21:28; Admin Dose 3.125 MG; Start 01/30/17 at 00:00 Miscellaneous Information 1 ea NOTE XX ; Start 01/30/17 at 01:00 Glucose (Glutose) 15 gm Q15M PRN PO DECREASED GLUCOSE; Start 01/30/17 at 01:00 Glucose (Glutose) 22.5 gm Q15M PRN PO DECREASED GLUCOSE; Start 01/30/17 at 01: 00 Dextrose (D50w Syringe) 25 ml Q15M PRN IV DECREASED GLUCOSE; Start 01/30/17 at 01:00 Dextrose (D50w Syringe) 50 ml Q15M PRN IV DECREASED GLUCOSE; Start 01/30/17 at 01:00 Glucagon (Glucagen) 1 mg Q15M PRN IM DECREASED GLUCOSE; Start 01/30/17 at 01:00 Glucose (Glutose) 15 gm Q15M PRN BUCCAL DECREASED GLUCOSE; Start 01/30/17 at 01 :00 Diagnostic Test (Pha) (Accu-Chek) 1 ea 02 XX Last administered on 02/04/17 02: 27; Admin Dose 1 EA; Start 01/31/17 at 02:00 Nifedipine (Procardia Xl) 30 mg BID PO Last administered on 02/07/17 21:28; Admin Dose 30 MG; Start 02/01/17 at 21:00 Nicotine (Nicoderm 14 Mg/ 24hr) 1 patch DAILY TRANSDERM Last administered on 08:45; Admin Dose 1 PATCH; Start 02/05/17 at 09:00 Famotidine (Pepcid) 20 mg DAILY PO Last administered on 02/08/17 08:44; Admin Dose 20 MG; Start 02/05/17 at 12:00 Docusate Sodium (Colace) 100 mg BID PO Last administered on 02/08/17 08:44; Admin Dose 100 MG; Start 02/07/17 at 15:00 Polyethylene Glycol (Miralax) 17 gm BID PO Last administered on 02/08/17 08:43 ; Admin Dose 17 GM; Start 02/07/17 at 21:00 Bisacodyl (Dulcolax) 10 mg DAILY PRN PO CONSTIPATION; Start 02/07/17 at 16:30 Acetaminophen/ Hydrocodone Bitart ([place] (5/325)) 2 tab Q4H PRN PO pain; Start 02/08/17 at 14:00 Acetaminophen/ Hydrocodone Bitart ([place] (5/325)) 1 tab Q4H PRN PO pain Last administered on 02/08/17 15:00; Admin Dose 1 TAB; Start 02/08/17 at 14:00 ERIK HERRERA Feb 08, 2017 16:10
--- NOTE | 2017-02-08 16:47 | CONS ---
Date/Time of Note Date/Time of Note DATE: 02/08/17 TIME: 16:46 Consult Date/Type/Reason Admit Date/Time Jan 29, 2017 at 19:38 Initial Consult Date 01/30/17 Type of Consultation: Neurology Reason for Consultation LE weakness Subjective no change in symptoms remains stable Objective Vital Signs Date Time Temp Pulse Resp B/P Pulse Ox O2 Delivery O2 Flow Rate FiO2 02/08/17 16:00 103 02/08/17 12:50 18 02/08/17 11:57 98.5 169/74 92 Exam Results/Medications Result Diagram: 02/08/17 1100 02/08/17 1100 Results 24 hrs Laboratory Tests Test 02/07/17 17:25 02/07/17 21:25 02/07/17 22:21 02/08/17 08:39 Bedside Glucose 150 146 134 White Blood Count 11.1 #H Red Blood Count 3.76 L Hemoglobin 12.8 L Hematocrit 38.9 L Mean Corpuscular Volume 103.5 H Mean Corpuscular Hemoglobin 34.0 H Mean Corpuscular Hemoglobin Concent 32.9 Red Cell Distribution Width 13.6 Platelet Count 128 L Mean Platelet Volume 10.4 Neutrophils % 93.9 H Lymphocytes % 2.3 L Monocytes % 2.4 Eosinophils % 0.3 Basophils % 0.3 Nucleated Red Blood Cells % 0.0 Neutrophils # 10.4 H Lymphocytes # 0.3 L Monocytes # 0.3 Eosinophils # 0.0 Basophils # 0.0 Nucleated Red Blood Cells # 0.0 Sodium Level 135 Potassium Level 4.8 Chloride Level 103 Carbon Dioxide Level 21 Anion Gap 16 Blood Urea Nitrogen 109 H Creatinine 5.65 H Glucose Level 163 Calcium Level 8.2 L Phosphorus Level 5.6 H Magnesium Level 1.9 Test 02/08/17 11:00 02/08/17 12:06 White Blood Count 13.4 #H Red Blood Count 3.53 L Hemoglobin 11.9 L Hematocrit 35.9 L Mean Corpuscular Volume 101.7 H Mean Corpuscular Hemoglobin 33.7 H Mean Corpuscular Hemoglobin Concent 33.1 Red Cell Distribution Width 13.8 Platelet Count 113 L Mean Platelet Volume 11.1 H Neutrophils % 91.8 H Lymphocytes % 2.5 L Monocytes % 4.0 Eosinophils % 0.1 Basophils % 0.2 Nucleated Red Blood Cells % 0.0 Neutrophils # 12.3 H Lymphocytes # 0.3 L Monocytes # 0.5 Eosinophils # 0.0 Basophils # 0.0 Nucleated Red Blood Cells # 0.0 Sodium Level 136 Potassium Level 4.6 Chloride Level 103 Carbon Dioxide Level 24 Anion Gap 14 Blood Urea Nitrogen 119 H Creatinine 6.17 H Glucose Level 133 Calcium Level 8.5 Phosphorus Level 5.9 H Magnesium Level 1.9 Bedside Glucose 130 Medications Current Medications Ondansetron HCl (Zofran Inj) 4 mg Q6 PRN IV NAUSEA AND/OR VOMITING Last administered on 02/04/17 20:49; Admin Dose 4 MG; Start 01/30/17 at 00:00 Acetaminophen (Tylenol Tab) 650 mg Q6H PRN PO PAIN AND OR ELEVATED TEMP Last administered on 02/08/17 11:04; Admin Dose 650 MG; Start 01/30/17 at 00:00 Clonidine (Catapres) 0.1 mg TID PRN PO FOR SBP >160 Last administered on 00:29; Admin Dose 0.1 MG; Start 01/30/17 at 00:00 Ergocalciferol (Drisdol) 50,000 unit Q7D PO Last administered on 02/08/17 08: 44; Admin Dose 50,000 UNIT; Start 02/01/17 at 09:00 Febuxostat (Uloric) 40 mg DAILY PO Last administered on 02/08/17 08:44; Admin Dose 40 MG; Start 01/30/17 at 09:00 Hydralazine HCl (Apresoline) 50 mg BID PO Last administered on 02/07/17 21:27 ; Admin Dose 50 MG; Start 01/30/17 at 00:00 Isosorbide Mononitrate (Imdur) 60 mg DAILY PO Last administered on 02/07/17 09 :30; Admin Dose 60 MG; Start 01/30/17 at 09:00 Prasugrel (Effient) 10 mg DAILY PO Last administered on 02/08/17 08:44; Admin Dose 10 MG; Start 01/30/17 at 09:00 Ropinirole HCl (Requip) 0.25 mg HS PO Last administered on 02/07/17 21:26; Admin Dose 0.25 MG; Start 01/30/17 at 21:00 Tamsulosin HCl (Flomax) 0.4 mg DAILY@21 PO Last administered on 02/07/17 21:26 ; Admin Dose 0.4 MG; Start 01/30/17 at 21:00 Fish Oil (Fish Oil) 1,000 mg BID PO Last administered on 02/08/17 08:44; Admin Dose 1,000 MG; Start 01/31/17 at 09:30 Atorvastatin Calcium (Lipitor) 10 mg QHS PO Last administered on 02/07/17 21: 27; Admin Dose 10 MG; Start 01/30/17 at 21:00 Multivit/Ca Carb/ B Cmplx/FA/Prenat (Paulina-Chrissy) 1 tab DAILY PO Last administered on 02/08/17 08:44; Admin Dose 1 TAB; Start 01/30/17 at 09:00 Carvedilol (Coreg) 3.125 mg BID PO Last administered on 02/07/17 21:28; Admin Dose 3.125 MG; Start 01/30/17 at 00:00 Miscellaneous Information 1 ea NOTE XX ; Start 01/30/17 at 01:00 Glucose (Glutose) 15 gm Q15M PRN PO DECREASED GLUCOSE; Start 01/30/17 at 01:00 Glucose (Glutose) 22.5 gm Q15M PRN PO DECREASED GLUCOSE; Start 01/30/17 at 01: 00 Dextrose (D50w Syringe) 25 ml Q15M PRN IV DECREASED GLUCOSE; Start 01/30/17 at 01:00 Dextrose (D50w Syringe) 50 ml Q15M PRN IV DECREASED GLUCOSE; Start 01/30/17 at 01:00 Glucagon (Glucagen) 1 mg Q15M PRN IM DECREASED GLUCOSE; Start 01/30/17 at 01:00 Glucose (Glutose) 15 gm Q15M PRN BUCCAL DECREASED GLUCOSE; Start 01/30/17 at 01 :00 Diagnostic Test (Pha) (Accu-Chek) 1 ea 02 XX Last administered on 02/04/17 02: 27; Admin Dose 1 EA; Start 01/31/17 at 02:00 Nifedipine (Procardia Xl) 30 mg BID PO Last administered on 02/07/17 21:28; Admin Dose 30 MG; Start 02/01/17 at 21:00 Nicotine (Nicoderm 14 Mg/ 24hr) 1 patch DAILY TRANSDERM Last administered on 08:45; Admin Dose 1 PATCH; Start 02/05/17 at 09:00 Famotidine (Pepcid) 20 mg DAILY PO Last administered on 02/08/17 08:44; Admin Dose 20 MG; Start 02/05/17 at 12:00 Docusate Sodium (Colace) 100 mg BID PO Last administered on 02/08/17 08:44; Admin Dose 100 MG; Start 02/07/17 at 15:00 Polyethylene Glycol (Miralax) 17 gm BID PO Last administered on 02/08/17 08:43 ; Admin Dose 17 GM; Start 02/07/17 at 21:00 Bisacodyl (Dulcolax) 10 mg DAILY PRN PO CONSTIPATION; Start 02/07/17 at 16:30 Acetaminophen/ Hydrocodone Bitart ([place] (5/325)) 2 tab Q4H PRN PO pain; Start 02/08/17 at 14:00 Acetaminophen/ Hydrocodone Bitart ([place] (5/325)) 1 tab Q4H PRN PO pain Last administered on 02/08/17 15:00; Admin Dose 1 TAB; Start 02/08/17 at 14:00 Assessment/Plan Chief Complaint/Hosp Course acute onset LE weakness unclear etiology MRI T Spine: There is multilevel disc space narrowing which appears more pronounced, moderate - severe at T2-3 through T9-10. Minimal posterior disc osteophytes are seen at T3-4, T5-6 and T6-7. No central canal stenosis is identified. Facet arthropathy seen at T5-6 on the right. No high-grade foraminal narrowing is seen. The cord is not well assessed due to motion artifacts. MRI L Spine: Multilevel lumbar spondylosis with multilevel foraminal narrowing as described. No evidence for fracture or metastatic disease. Suggestion of increased central canal signal of the distal cord on the sagittal images. Recommendations: Possible viral meningitis Given Solumedrol x 3 days monitor glucose, give with PPI ID following follow up WNV PT/OT eval Problems: CARI GONZALES MD Feb 08, 2017 16:47
--- NOTE | 2017-02-08 21:01 | PN ---
Date/Time of Note Date/Time of Note DATE: 02/08/17 TIME: 20:57 Assessment/Plan VTE Prophylaxis VTE Prophylaxis Intervention: SCD's Lines/Catheters IV [facility]from [facility] [place] Urinary Cath still in place: No Assessment/Plan Chief Complaint/Hosp Course Assessment and plan 1. Bilateral lower extremity weakness. Imaging of the brain is negative for any acute findings. Patient did have lumbar spine CT that did show multilevel central canal and neural foraminal stenosis. CSF analysis suggestive of viral meningitis. Continue with ID recommendations. Off antibiotics at this time. Follow-up with studies for possible West Nile virus. 2. ESRD. Continue on dialysis per nephrology recommendations. 3. Essential hypertension. Continue antihypertensives as needed 4. Diabetes. Continue insulin regimen. Stable at present. 5. CAD. Continue Dilantin therapy. 6 dyslipidemia. With continuous on statin medication. 7. Anemia of chronic disease. Stable at present. Monitor for now. 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 Disposition and plan: Follow-up with cultures. Monitor for clinical improvement in neuro status. Continue inpatient monitoring. Discussed plan of care wireema Munguia Problems: Subjective 24 Hr Interval Summary Free Text/Dictation Still noted with weakness in bilateral lower extremities. Does have intermittent headache at times. Exam/Review of Systems Vital Signs Vitals Vital Signs Date Time Temp Pulse Resp B/P Pulse Ox O2 Delivery O2 Flow Rate FiO2 02/08/17 19:45 99.5 86 18 131/63 90 Exam Constitutional: alert, oriented Psych: nl mood/affect Head: normocephalic Cardiovascular: regular rate and rhythm Gastrointestinal: non-tender, soft Musculoskeletal: No nl gait and stance Extremities: normal pulses 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: nl mental status, nl speech Skin: nl turgor Results Result Diagram: 02/08/17 1100 02/08/17 1100 Results 24 hrs Laboratory Tests Test 02/07/17 21:25 02/07/17 22:21 02/08/17 08:39 02/08/17 11:00 Bedside Glucose 146 134 White Blood Count 11.1 #H 13.4 #H Red Blood Count 3.76 L 3.53 L Hemoglobin 12.8 L 11.9 L Hematocrit 38.9 L 35.9 L Mean Corpuscular Volume 103.5 H 101.7 H Mean Corpuscular Hemoglobin 34.0 H 33.7 H Mean Corpuscular Hemoglobin Concent 32.9 33.1 Red Cell Distribution Width 13.6 13.8 Platelet Count 128 L 113 L Mean Platelet Volume 10.4 11.1 H Neutrophils % 93.9 H 91.8 H Lymphocytes % 2.3 L 2.5 L Monocytes % 2.4 4.0 Eosinophils % 0.3 0.1 Basophils % 0.3 0.2 Nucleated Red Blood Cells % 0.0 0.0 Neutrophils # 10.4 H 12.3 H Lymphocytes # 0.3 L 0.3 L Monocytes # 0.3 0.5 Eosinophils # 0.0 0.0 Basophils # 0.0 0.0 Nucleated Red Blood Cells # 0.0 0.0 Sodium Level 135 136 Potassium Level 4.8 4.6 Chloride Level 103 103 Carbon Dioxide Level 21 24 Anion Gap 16 14 Blood Urea Nitrogen 109 H 119 H Creatinine 5.65 H 6.17 H Glucose Level 163 133 Calcium Level 8.2 L 8.5 Phosphorus Level 5.6 H 5.9 H Magnesium Level 1.9 1.9 Test 02/08/17 12:06 02/08/17 17:52 Bedside Glucose 130 165 Medications Medications Current Medications Ondansetron HCl (Zofran Inj) 4 mg Q6 PRN IV NAUSEA AND/OR VOMITING Last administered on 02/04/17 20:49; Admin Dose 4 MG; Start 01/30/17 at 00:00 Acetaminophen (Tylenol Tab) 650 mg Q6H PRN PO PAIN AND OR ELEVATED TEMP Last administered on 02/08/17 17:55; Admin Dose 650 MG; Start 01/30/17 at 00:00 Clonidine (Catapres) 0.1 mg TID PRN PO FOR SBP >160 Last administered on 00:29; Admin Dose 0.1 MG; Start 01/30/17 at 00:00 Ergocalciferol (Drisdol) 50,000 unit Q7D PO Last administered on 02/08/17 08: 44; Admin Dose 50,000 UNIT; Start 02/01/17 at 09:00 Febuxostat (Uloric) 40 mg DAILY PO Last administered on 02/08/17 08:44; Admin Dose 40 MG; Start 01/30/17 at 09:00 Hydralazine HCl (Apresoline) 50 mg BID PO Last administered on 02/07/17 21:27 ; Admin Dose 50 MG; Start 01/30/17 at 00:00 Isosorbide Mononitrate (Imdur) 60 mg DAILY PO Last administered on 02/07/17 09 :30; Admin Dose 60 MG; Start 01/30/17 at 09:00 Prasugrel (Effient) 10 mg DAILY PO Last administered on 02/08/17 08:44; Admin Dose 10 MG; Start 01/30/17 at 09:00 Ropinirole HCl (Requip) 0.25 mg HS PO Last administered on 02/07/17 21:26; Admin Dose 0.25 MG; Start 01/30/17 at 21:00 Tamsulosin HCl (Flomax) 0.4 mg DAILY@21 PO Last administered on 02/07/17 21:26 ; Admin Dose 0.4 MG; Start 01/30/17 at 21:00 Fish Oil (Fish Oil) 1,000 mg BID PO Last administered on 02/08/17 08:44; Admin Dose 1,000 MG; Start 01/31/17 at 09:30 Atorvastatin Calcium (Lipitor) 10 mg QHS PO Last administered on 02/07/17 21: 27; Admin Dose 10 MG; Start 01/30/17 at 21:00 Multivit/Ca Carb/ B Cmplx/FA/Prenat (Paulina-Chrissy) 1 tab DAILY PO Last administered on 02/08/17 08:44; Admin Dose 1 TAB; Start 01/30/17 at 09:00 Carvedilol (Coreg) 3.125 mg BID PO Last administered on 02/07/17 21:28; Admin Dose 3.125 MG; Start 01/30/17 at 00:00 Miscellaneous Information 1 ea NOTE XX ; Start 01/30/17 at 01:00 Glucose (Glutose) 15 gm Q15M PRN PO DECREASED GLUCOSE; Start 01/30/17 at 01:00 Glucose (Glutose) 22.5 gm Q15M PRN PO DECREASED GLUCOSE; Start 01/30/17 at 01: 00 Dextrose (D50w Syringe) 25 ml Q15M PRN IV DECREASED GLUCOSE; Start 01/30/17 at 01:00 Dextrose (D50w Syringe) 50 ml Q15M PRN IV DECREASED GLUCOSE; Start 01/30/17 at 01:00 Glucagon (Glucagen) 1 mg Q15M PRN IM DECREASED GLUCOSE; Start 01/30/17 at 01:00 Glucose (Glutose) 15 gm Q15M PRN BUCCAL DECREASED GLUCOSE; Start 01/30/17 at 01 :00 Diagnostic Test (Pha) (Accu-Chek) 1 ea 02 XX Last administered on 02/04/17 02: 27; Admin Dose 1 EA; Start 01/31/17 at 02:00 Nifedipine (Procardia Xl) 30 mg BID PO Last administered on 02/07/17 21:28; Admin Dose 30 MG; Start 02/01/17 at 21:00 Nicotine (Nicoderm 14 Mg/ 24hr) 1 patch DAILY TRANSDERM Last administered on 08:45; Admin Dose 1 PATCH; Start 02/05/17 at 09:00 Famotidine (Pepcid) 20 mg DAILY PO Last administered on 02/08/17 08:44; Admin Dose 20 MG; Start 02/05/17 at 12:00 Docusate Sodium (Colace) 100 mg BID PO Last administered on 02/08/17 08:44; Admin Dose 100 MG; Start 02/07/17 at 15:00 Polyethylene Glycol (Miralax) 17 gm BID PO Last administered on 02/08/17 08:43 ; Admin Dose 17 GM; Start 02/07/17 at 21:00 Bisacodyl (Dulcolax) 10 mg DAILY PRN PO CONSTIPATION; Start 02/07/17 at 16:30 Acetaminophen/ Hydrocodone Bitart ([place] (5/325)) 2 tab Q4H PRN PO pain; Start 02/08/17 at 14:00 Acetaminophen/ Hydrocodone Bitart ([place] (5/325)) 1 tab Q4H PRN PO pain Last administered on 02/08/17 15:00; Admin Dose 1 TAB; Start 02/08/17 at 14:00 JANES RAINES Feb 08, 2017 21:01
[2017-02-08] MEDS: ATORVASTATIN 10 MG TAB PO SCH (21:18)
[2017-02-08] MEDS: TAMSULOSIN (SR) 0.4 MG CAP PO SCH (21:23)
[2017-02-08] MEDS: ROPINIROLE 0.25 MG TAB PO SCH (21:32)
[2017-02-09] VITALS (11 sets, daily range): BP systolic 141–153; BP diastolic 52–66; PULSE 84–96; RESP 18–19
[2017-02-09] MEDS: ACCU-CHEK XX SCH (02:00)
[2017-02-09] MEDS: ACETAMINOPHEN 325 MG TAB PO PRN (04:46)
[2017-02-09] MEDS: PIPER-TAZO 2.25 GM (PMX) 50 ML IVPB SCH ×3 (06:03→21:09)
[2017-02-09] MEDS: POLYETHYLENE GLYCOL 17 GM PACKET PO SCH ×2 (08:48→21:00)
[2017-02-09] MEDS: NIFEdipine (XL) 30 MG TAB PO SCH ×2 (08:48→20:59)
[2017-02-09] MEDS: FEBUXOSTAT 40 MG TABLET PO SCH (08:48)
[2017-02-09] MEDS: MULTIVIT/CA CARB/B CMPLX/FA TAB PO SCH (08:48)
[2017-02-09] MEDS: SEVELAMER 800 MG TAB PO SCH ×3 (08:49→17:37)
[2017-02-09] MEDS: ISOSORBIDE MONONITRATE(SR)60 MG TAB PO SCH (08:49)
[2017-02-09] MEDS: FISH OIL 1,000 MG CAP PO SCH ×2 (08:49→21:00)
[2017-02-09] MEDS: PRASUGREL HYDROCHLORIDE 10 MG TABLET PO SCH (08:49)
[2017-02-09] MEDS: FAMOTIDINE 20 MG TAB PO SCH (08:49)
[2017-02-09] MEDS: DOCUSATE SODIUM 100 MG CAP PO SCH ×2 (08:50→21:00)
[2017-02-09] MEDS: INSULIN ASPART [NOVOLOG] 3 ML PEN SC SCH ×4 (08:53→21:00)
[2017-02-09] MEDS: NICOTINE (14 MG/24 HR) PATCH TRANSDERM SCH (08:55)
--- NOTE | 2017-02-09 09:48 | PN ---
DATE: 02/09/2017 SUBJECTIVE DATA: The patient is stable. No events overnight. No fevers, chills, nausea, vomiting. No other events noted. OBJECTIVE DATA: VITAL SIGNS: Blood pressure is 153/66, respirations 19, pulse 96, temperature 98.5. HEENT: Head is normocephalic. NECK: Supple. HEART: Regular rate. LUNGS: Show diminished breath sounds at the base. ABDOMEN: Soft, nontender to palpation. No rebound or guarding. EXTREMITIES: Negative for clubbing, cyanosis. No edema. DERMATOLOGIC: Clean. No rashes. MUSCULOSKELETAL: No joint effusion. NEUROLOGIC: No change in exam. MEDICATIONS: Reviewed. LABORATORY AND DIAGNOSTIC DATA: Reviewed. ASSESSMENT AND PLAN: 1. End-stage renal disease. Plan for hemodialysis tomorrow. 2. Mineral bone disorder. Monitor calcium and phosphorus levels. 3. Anemia. Continue to monitor H and H levels. Continue Epogen. 4. Congestive heart failure. Continue ultrafiltration dialysis. 5. Hypertension. Continue current blood pressure regimen. 6. Sepsis with bacteremia. Continue current antibiotic regimen. 7. Diabetes. Continue Accu-Cheks and insulin sliding scale. 8. Viral meningitis with lower extremity weakness. Continue current medical management. Follow up with Neurology. Dictated By: Arvind Galindo DO /[email or web address] /Document#: [id number]
--- NOTE | 2017-02-09 12:02 | PN ---
Date/Time of Note Date/Time of Note DATE: 02/09/17 TIME: 12:00 Assessment/Plan VTE Prophylaxis VTE Prophylaxis Intervention: SCD's Lines/Catheters IV [facility] Type [facility]from [facility] [place] [facility] Urinary Cath still in place: No Assessment/Plan Chief Complaint/Hosp Course Assessment and plan 1. Bilateral lower extremity weakness. Imaging of the brain is negative for any acute findings. Patient did have lumbar spine CT that did show multilevel central canal and neural foraminal stenosis. CSF analysis suggestive of viral meningitis. Continue with ID recommendations. . Follow-up with studies for possible West Nile virus. 2. ESRD. Continue on dialysis per nephrology recommendations. 3. Essential hypertension. Continue antihypertensives as needed 4. Diabetes. Continue insulin regimen. Stable at present. 5. CAD. Continue Dilantin therapy. 6 dyslipidemia. on statin medication. 7. Anemia of chronic disease. Stable at present. Monitor for now. 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 Disposition and plan: Follow-up with cultures. Monitor for clinical improvement in neuro status. Continue inpatient monitoring. Discussed plan of care wiht Dr. Munguia Problems: Subjective 24 Hr Interval Summary Free Text/Dictation resting at this time. still with reported weakness Exam/Review of Systems Vital Signs Vitals Vital Signs Date Time Temp Pulse Resp B/P Pulse Ox O2 Delivery O2 Flow Rate FiO2 02/09/17 11:54 97.9 81 19 152/53 96 02/08/17 23:00 3.0 Intake and Output 02/08/17 02/08/17 02/09/17 15:00 23:00 07:00 Intake Total 500 ml 600 ml Output Total 3500 ml Balance -3000 ml 600 ml Exam Constitutional: alert, oriented Psych: nl mood/affect Head: normocephalic Cardiovascular: regular rate and rhythm Gastrointestinal: non-tender, soft Musculoskeletal: No nl gait and stance Extremities: normal pulses 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: nl mental status, nl speech Skin: nl turgor Results Result Diagram: 02/08/17 1100 02/08/17 1100 Results 24 hrs Laboratory Tests Test 02/08/17 12:06 02/08/17 17:52 02/08/17 21:28 02/09/17 04:01 Bedside Glucose 130 165 191 157 Test 02/09/17 08:28 Bedside Glucose 192 Medications Medications Current Medications Ondansetron HCl (Zofran Inj) 4 mg Q6 PRN IV NAUSEA AND/OR VOMITING Last administered on 02/04/17 20:49; Admin Dose 4 MG; Start 01/30/17 at 00:00 Acetaminophen (Tylenol Tab) 650 mg Q6H PRN PO PAIN AND OR ELEVATED TEMP Last administered on 02/09/17 04:46; Admin Dose 650 MG; Start 01/30/17 at 00:00 Clonidine (Catapres) 0.1 mg TID PRN PO FOR SBP >160 Last administered on 00:29; Admin Dose 0.1 MG; Start 01/30/17 at 00:00 Ergocalciferol (Drisdol) 50,000 unit Q7D PO Last administered on 02/08/17 08: 44; Admin Dose 50,000 UNIT; Start 02/01/17 at 09:00 Febuxostat (Uloric) 40 mg DAILY PO Last administered on 02/09/17 08:48; Admin Dose 40 MG; Start 01/30/17 at 09:00 Hydralazine HCl (Apresoline) 50 mg BID PO Last administered on 02/09/17 08:50 ; Admin Dose 50 MG; Start 01/30/17 at 00:00 Isosorbide Mononitrate (Imdur) 60 mg DAILY PO Last administered on 02/09/17 08 :49; Admin Dose 60 MG; Start 01/30/17 at 09:00 Prasugrel (Effient) 10 mg DAILY PO Last administered on 02/09/17 08:49; Admin Dose 10 MG; Start 01/30/17 at 09:00 Ropinirole HCl (Requip) 0.25 mg HS PO Last administered on 02/08/17 21:32; Admin Dose 0.25 MG; Start 01/30/17 at 21:00 Tamsulosin HCl (Flomax) 0.4 mg DAILY@21 PO Last administered on 02/08/17 21:23 ; Admin Dose 0.4 MG; Start 01/30/17 at 21:00 Fish Oil (Fish Oil) 1,000 mg BID PO Last administered on 02/09/17 08:49; Admin Dose 1,000 MG; Start 01/31/17 at 09:30 Atorvastatin Calcium (Lipitor) 10 mg QHS PO Last administered on 02/08/17 21: 18; Admin Dose 10 MG; Start 01/30/17 at 21:00 Multivit/Ca Carb/ B Cmplx/FA/Prenat (Paulina-Chrissy) 1 tab DAILY PO Last administered on 02/09/17 08:48; Admin Dose 1 TAB; Start 01/30/17 at 09:00 Carvedilol (Coreg) 3.125 mg BID PO Last administered on 02/09/17 08:50; Admin Dose 3.125 MG; Start 01/30/17 at 00:00 Miscellaneous Information 1 ea NOTE XX ; Start 01/30/17 at 01:00 Glucose (Glutose) 15 gm Q15M PRN PO DECREASED GLUCOSE; Start 01/30/17 at 01:00 Glucose (Glutose) 22.5 gm Q15M PRN PO DECREASED GLUCOSE; Start 01/30/17 at 01: 00 Dextrose (D50w Syringe) 25 ml Q15M PRN IV DECREASED GLUCOSE; Start 01/30/17 at 01:00 Dextrose (D50w Syringe) 50 ml Q15M PRN IV DECREASED GLUCOSE; Start 01/30/17 at 01:00 Glucagon (Glucagen) 1 mg Q15M PRN IM DECREASED GLUCOSE; Start 01/30/17 at 01:00 Glucose (Glutose) 15 gm Q15M PRN BUCCAL DECREASED GLUCOSE; Start 01/30/17 at 01 :00 Diagnostic Test (Pha) (Accu-Chek) 1 ea 02 XX Last administered on 02/09/17 02: 00; Admin Dose 1 EA; Start 01/31/17 at 02:00 Nifedipine (Procardia Xl) 30 mg BID PO Last administered on 02/09/17 08:48; Admin Dose 30 MG; Start 02/01/17 at 21:00 Nicotine (Nicoderm 14 Mg/ 24hr) 1 patch DAILY TRANSDERM Last administered on 08:55; Admin Dose 1 PATCH; Start 02/05/17 at 09:00 Famotidine (Pepcid) 20 mg DAILY PO Last administered on 02/09/17 08:49; Admin Dose 20 MG; Start 02/05/17 at 12:00 Docusate Sodium (Colace) 100 mg BID PO Last administered on 02/09/17 08:50; Admin Dose 100 MG; Start 02/07/17 at 15:00 Polyethylene Glycol (Miralax) 17 gm BID PO Last administered on 02/09/17 08:48 ; Admin Dose 17 GM; Start 02/07/17 at 21:00 Bisacodyl (Dulcolax) 10 mg DAILY PRN PO CONSTIPATION; Start 02/07/17 at 16:30 Acetaminophen/ Hydrocodone Bitart ([place] (5/325)) 2 tab Q4H PRN PO pain; Start 02/08/17 at 14:00 Acetaminophen/ Hydrocodone Bitart 1 tab 1 tab Q4H PRN PO pain Last administered on 02/08/17 15:00; Admin Dose 1 TAB; Start 02/08/17 at 14:00 Piperacillin Sod/ Tazobactam Sod (Zosyn 2.25gm/ 50ml (Pmx)) 50 ml @ 200 mls/hr Q8 IVPB Last administered on 02/09/17 06:03; Admin Dose 200 MLS/HR; Start at 06:00 JANES RAINES Feb 09, 2017 12:02
[2017-02-09 20:02] LABS: ADD UMIC YES; UR ASCORBIC ACID NEGATIVE (NEGATIVE); UR BACTERIA MODERATE /HPF (NONE SEEN); UR BILIRUBIN (Dip) NEGATIVE (NEGATIVE); UR BLOOD (Dip) NEGATIVE (NEGATIVE); UR CLARITY TURBID (CLEAR); UR COLOR YELLOW (YELLOW); UR GLUCOSE (Dip) NEGATIVE (NEGATIVE); UR KETONES (Dip) NEGATIVE (NEGATIVE); UR LEUKOCYTE ESTERASE (Dip) 3+ Leu/ul (NEGATIVE); UR NITRITE (Dip) NEGATIVE (NEGATIVE); UR RBC 6 /HPF (0-5); UR SPECIFIC GRAVITY (Dip) 1.012 (1.003-1.030); UR TOTAL PROTEIN (Dip) 3+ mg/dl (NEGATIVE); UR UROBILINOGEN (Dip) NEGATIVE (NEGATIVE)
[2017-02-09] MEDS: ATORVASTATIN 10 MG TAB PO SCH (20:59)
[2017-02-09] MEDS: TAMSULOSIN (SR) 0.4 MG CAP PO SCH (21:00)
[2017-02-09] MEDS: ROPINIROLE 0.25 MG TAB PO SCH (21:00)
--- NOTE | 2017-02-09 21:12 | CONS ---
Date/Time of Note Date/Time of Note DATE: 02/09/17 TIME: 21:09 Assessment/Plan Assessment/Plan Chief Complaint/Hosp Course Patient is alert, looks comfortable, afebrile, family at bedside, son is concerned about BLE weakness Microbiology: CSF cultures negative, bld cx grew GNR Abx: Zosyn Physical examination: Obese, well-developed elderly [place] man who is alert in no distress. Head atraumatic normocephalic sclerae nonicteric vehicle mucosa pink neck is supple chest rise symmetrical breath sounds clear heart S1- S2 abdomen soft bowel sounds present extremities without cyanosis Assessment: 1. GNR bacteremia, poss 2 to UTI 2. Viral meningitis 3. End-stage renal disease, hemodialysis dependent 4. Diabetes. 5. Coronary artery disease and hypertension Plan: Patient remains stable, pending final cx, will order bladder scan and straight cath prn, continue abx, neurology/renal rec-s DW family at bedside Problems: Consultation Date/Type/Reason Admit Date/Time Jan 29, 2017 at 19:38 Initial Consult Date 01/30/17 Type of Consultation: ID Exam/Review of Systems Vital Signs Vitals Vital Signs Date Time Temp Pulse Resp B/P Pulse Ox O2 Delivery O2 Flow Rate FiO2 02/09/17 20:16 98.6 85 18 141/52 96 02/09/17 18:22 3.0 Intake and Output 02/08/17 02/08/17 02/09/17 15:00 23:00 07:00 Intake Total 500 ml 600 ml Output Total 3500 ml Balance -3000 ml 600 ml Results Result Diagram: 02/08/17 1100 02/08/17 1100 Results 24 hrs Laboratory Tests Test 02/08/17 21:28 02/09/17 04:01 02/09/17 08:28 02/09/17 12:32 Bedside Glucose 191 157 192 209 Test 02/09/17 17:23 02/09/17 19:10 02/09/17 20:57 Bedside Glucose 168 145 Urine Color YELLOW Urine Clarity TURBID A Urine pH 8.0 Urine Specific [place] 1.012 Urine Ketones NEGATIVE Urine Nitrite NEGATIVE Urine Bilirubin NEGATIVE Urine Urobilinogen NEGATIVE Urine Leukocyte Esterase 3+ H Urine Microscopic RBC 6 H Urine Microscopic WBC > 182 H Urine Bacteria MODERATE Urine Hemoglobin NEGATIVE Urine Glucose NEGATIVE Urine Total Protein 3+ H Medications Medications Current Medications Ondansetron HCl (Zofran Inj) 4 mg Q6 PRN IV NAUSEA AND/OR VOMITING Last administered on 02/04/17 20:49; Admin Dose 4 MG; Start 01/30/17 at 00:00 Acetaminophen (Tylenol Tab) 650 mg Q6H PRN PO PAIN AND OR ELEVATED TEMP Last administered on 02/09/17 04:46; Admin Dose 650 MG; Start 01/30/17 at 00:00 Clonidine (Catapres) 0.1 mg TID PRN PO FOR SBP >160 Last administered on 00:29; Admin Dose 0.1 MG; Start 01/30/17 at 00:00 Ergocalciferol (Drisdol) 50,000 unit Q7D PO Last administered on 02/08/17 08: 44; Admin Dose 50,000 UNIT; Start 02/01/17 at 09:00 Febuxostat (Uloric) 40 mg DAILY PO Last administered on 02/09/17 08:48; Admin Dose 40 MG; Start 01/30/17 at 09:00 Hydralazine HCl (Apresoline) 50 mg BID PO Last administered on 02/09/17 21:00 ; Admin Dose 50 MG; Start 01/30/17 at 00:00 Isosorbide Mononitrate (Imdur) 60 mg DAILY PO Last administered on 02/09/17 08 :49; Admin Dose 60 MG; Start 01/30/17 at 09:00 Prasugrel (Effient) 10 mg DAILY PO Last administered on 02/09/17 08:49; Admin Dose 10 MG; Start 01/30/17 at 09:00 Ropinirole HCl (Requip) 0.25 mg HS PO Last administered on 02/09/17 21:00; Admin Dose 0.25 MG; Start 01/30/17 at 21:00 Tamsulosin HCl (Flomax) 0.4 mg DAILY@21 PO Last administered on 02/09/17 21:00 ; Admin Dose 0.4 MG; Start 01/30/17 at 21:00 Fish Oil (Fish Oil) 1,000 mg BID PO Last administered on 02/09/17 21:00; Admin Dose 1,000 MG; Start 01/31/17 at 09:30 Atorvastatin Calcium (Lipitor) 10 mg QHS PO Last administered on 02/09/17 20: 59; Admin Dose 10 MG; Start 01/30/17 at 21:00 Multivit/Ca Carb/ B Cmplx/FA/Prenat (Paulina-Chrissy) 1 tab DAILY PO Last administered on 02/09/17 08:48; Admin Dose 1 TAB; Start 01/30/17 at 09:00 Carvedilol (Coreg) 3.125 mg BID PO Last administered on 02/09/17 20:59; Admin Dose 3.125 MG; Start 01/30/17 at 00:00 Miscellaneous Information 1 ea NOTE XX ; Start 01/30/17 at 01:00 Glucose (Glutose) 15 gm Q15M PRN PO DECREASED GLUCOSE; Start 01/30/17 at 01:00 Glucose (Glutose) 22.5 gm Q15M PRN PO DECREASED GLUCOSE; Start 01/30/17 at 01: 00 Dextrose (D50w Syringe) 25 ml Q15M PRN IV DECREASED GLUCOSE; Start 01/30/17 at 01:00 Dextrose (D50w Syringe) 50 ml Q15M PRN IV DECREASED GLUCOSE; Start 01/30/17 at 01:00 Glucagon (Glucagen) 1 mg Q15M PRN IM DECREASED GLUCOSE; Start 01/30/17 at 01:00 Glucose (Glutose) 15 gm Q15M PRN BUCCAL DECREASED GLUCOSE; Start 01/30/17 at 01 :00 Diagnostic Test (Pha) (Accu-Chek) 1 ea 02 XX Last administered on 02/09/17 02: 00; Admin Dose 1 EA; Start 01/31/17 at 02:00 Nifedipine (Procardia Xl) 30 mg BID PO Last administered on 02/09/17 20:59; Admin Dose 30 MG; Start 02/01/17 at 21:00 Nicotine (Nicoderm 14 Mg/ 24hr) 1 patch DAILY TRANSDERM Last administered on 08:55; Admin Dose 1 PATCH; Start 02/05/17 at 09:00 Famotidine (Pepcid) 20 mg DAILY PO Last administered on 02/09/17 08:49; Admin Dose 20 MG; Start 02/05/17 at 12:00 Docusate Sodium (Colace) 100 mg BID PO Last administered on 02/09/17 21:00; Admin Dose 100 MG; Start 02/07/17 at 15:00 Polyethylene Glycol (Miralax) 17 gm BID PO Last administered on 02/09/17 21:00 ; Admin Dose 17 GM; Start 02/07/17 at 21:00 Bisacodyl (Dulcolax) 10 mg DAILY PRN PO CONSTIPATION; Start 02/07/17 at 16:30 Acetaminophen/ Hydrocodone Bitart ([place] (5/325)) 2 tab Q4H PRN PO pain; Start 02/08/17 at 14:00 Acetaminophen/ Hydrocodone Bitart 1 tab 1 tab Q4H PRN PO pain Last administered on 02/08/17 15:00; Admin Dose 1 TAB; Start 02/08/17 at 14:00 Piperacillin Sod/ Tazobactam Sod (Zosyn 2.25gm/ 50ml (Pmx)) 50 ml @ 200 mls/hr Q8 IVPB Last administered on 02/09/17 14:31; Admin Dose 200 MLS/HR; Start at 06:00 JAROD NORIEGA NP Feb 09, 2017 21:12
[2017-02-10] VITALS (20 sets, daily range): BP systolic 120–152; BP diastolic 52–80; PULSE 79–100; RESP 17–19
[2017-02-10] MEDS: ACCU-CHEK XX SCH (02:00)
[2017-02-10] MEDS: PIPER-TAZO 2.25 GM (PMX) 50 ML IVPB SCH ×3 (05:40→22:14)
[2017-02-10] MEDS: INSULIN ASPART [NOVOLOG] 3 ML PEN SC SCH ×4 (08:00→20:41)
[2017-02-10] MEDS: FAMOTIDINE 20 MG TAB PO SCH (08:19)
[2017-02-10] MEDS: MULTIVIT/CA CARB/B CMPLX/FA TAB PO SCH (08:19)
[2017-02-10] MEDS: SEVELAMER 800 MG TAB PO SCH ×3 (08:19→17:25)
[2017-02-10] MEDS: FISH OIL 1,000 MG CAP PO SCH ×2 (08:20→20:58)
[2017-02-10] MEDS: NICOTINE (14 MG/24 HR) PATCH TRANSDERM SCH (08:20)
[2017-02-10] MEDS: DOCUSATE SODIUM 100 MG CAP PO SCH ×2 (08:20→20:57)
[2017-02-10] MEDS: PRASUGREL HYDROCHLORIDE 10 MG TABLET PO SCH (08:20)
[2017-02-10] MEDS: FEBUXOSTAT 40 MG TABLET PO SCH (08:20)
[2017-02-10] MEDS: POLYETHYLENE GLYCOL 17 GM PACKET PO SCH ×2 (08:20→20:58)
[2017-02-10] MEDS: NIFEdipine (XL) 30 MG TAB PO SCH ×2 (09:00→20:58)
--- NOTE | 2017-02-10 10:31 | PN ---
DATE: 02/10/2017 SUBJECTIVE DATA: Patient had hemodialysis yesterday, tolerated well. OBJECTIVE DATA: VITAL SIGNS: Blood pressure is 140/65, temperature 98.6. Pulse 85, respirations 19. HEENT: Head is normocephalic. NECK: Supple. HEART: Regular rate. LUNGS: Diminished breath sounds at the base. ABDOMEN: Soft, nontender to palpation. No rebound or guarding. EXTREMITIES: Negative for clubbing, cyanosis. No edema. DERMATOLOGIC: No rashes. MUSCULOSKELETAL: No joint effusion. NEUROLOGIC: No change in exam. MEDICATIONS: Reviewed. LABORATORY AND DIAGNOSTIC DATA: Been reviewed. No new labs. ASSESSMENT AND PLAN: 1. End-stage renal disease. Continue intermittent hemodialysis. 2. Mineral bone disorder. Monitor calcium and phosphorus levels. 3. Anemia. Monitor. Monitor H and H levels. Continue Epogen. 4. Congestive heart failure. Continue ultrafiltration. 5. Hypertension. Continue current blood pressure regimen. 6. Sepsis bacteremia. Continue current antibiotic regimen. 7. Diabetes. Continue Accu-Cheks and sliding scale. 8. Viral meningitis with extremity weakness. Continue physical therapy. Dictated By: Arvind Galindo DO /waldo/ /Document#: [id number]
--- NOTE | 2017-02-10 11:31 | CONS ---
Date/Time of Note Date/Time of Note DATE: 02/10/17 TIME: 11:21 Consult Date/Type/Reason Admit Date/Time Jan 29, 2017 at 19:38 Initial Consult Date 01/30/17 Type of Consultation: Neurology Reason for Consultation LE weakness Subjective unable to ambulate c/o LE weakness persistent no change in symptoms Objective Vital Signs Date Time Temp Pulse Resp B/P Pulse Ox O2 Delivery O2 Flow Rate FiO2 02/10/17 08:11 98.6 85 17 140/65 94 02/10/17 07:18 3.0 02/09/17 20:00 Nasal Cannula Intake and Output 02/09/17 02/09/17 02/10/17 15:00 23:00 07:00 Intake Total 400 ml 850 ml Output Total 150 ml 900 ml Balance 250 ml -50 ml Exam awake and alert oriented x3 fluent speech 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[place] 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 CN: LIU, VFF, no nystagmus no facial asymmetry palate upgoing uvula midline scm/trap intact Motor strength is 5/5 in UE LE are 4-/5 4-/5 weakness plantarflexion Sensory decreased pinprick in hands and PP LE below lower abdomen Coordination no ataxia Reflexes 2+ upper extremities and KJ absent AJ toes down Results/Medications Result Diagram: 02/08/17 1100 02/08/17 1100 Results 24 hrs Laboratory Tests Test 02/09/17 12:32 02/09/17 17:23 02/09/17 19:10 02/09/17 20:57 Bedside Glucose 209 168 145 Urine Color YELLOW Urine Clarity TURBID A Urine pH 8.0 Urine Specific [place] 1.012 Urine Ketones NEGATIVE Urine Nitrite NEGATIVE Urine Bilirubin NEGATIVE Urine Urobilinogen NEGATIVE Urine Leukocyte Esterase 3+ H Urine Microscopic RBC 6 H Urine Microscopic WBC > 182 H Urine Bacteria MODERATE Urine Hemoglobin NEGATIVE Urine Glucose NEGATIVE Urine Total Protein 3+ H Test 02/10/17 07:20 02/10/17 08:06 Lab Scanned Report REFERENCE LAB Bedside Glucose 122 Medications Current Medications Ondansetron HCl (Zofran Inj) 4 mg Q6 PRN IV NAUSEA AND/OR VOMITING Last administered on 02/04/17t 20:49; Admin Dose 4 MG; Start 01/30/17 at 00:00 Acetaminophen (Tylenol Tab) 650 mg Q6H PRN PO PAIN AND OR ELEVATED TEMP Last administered on 02/09/17 04:46; Admin Dose 650 MG; Start 01/30/17 at 00:00 Clonidine (Catapres) 0.1 mg TID PRN PO FOR SBP >160 Last administered on 00:29; Admin Dose 0.1 MG; Start 01/30/17 at 00:00 Ergocalciferol (Drisdol) 50,000 unit Q7D PO Last administered on 02/08/17 08: 44; Admin Dose 50,000 UNIT; Start 02/01/17 at 09:00 Febuxostat (Uloric) 40 mg DAILY PO Last administered on 02/10/17 08:20; Admin Dose 40 MG; Start 01/30/17 at 09:00 Hydralazine HCl (Apresoline) 50 mg BID PO Last administered on 02/09/17 21:00 ; Admin Dose 50 MG; Start 01/30/17 at 00:00 Isosorbide Mononitrate (Imdur) 60 mg DAILY PO Last administered on 02/09/17 08 :49; Admin Dose 60 MG; Start 01/30/17 at 09:00 Prasugrel (Effient) 10 mg DAILY PO Last administered on 02/10/17 08:20; Admin Dose 10 MG; Start 01/30/17 at 09:00 Ropinirole HCl (Requip) 0.25 mg HS PO Last administered on 02/09/17 21:00; Admin Dose 0.25 MG; Start 01/30/17 at 21:00 Tamsulosin HCl (Flomax) 0.4 mg DAILY@21 PO Last administered on 02/09/17 21:00 ; Admin Dose 0.4 MG; Start 01/30/17 at 21:00 Fish Oil (Fish Oil) 1,000 mg BID PO Last administered on 02/10/17 08:20; Admin Dose 1,000 MG; Start 01/31/17 at 09:30 Atorvastatin Calcium (Lipitor) 10 mg QHS PO Last administered on 02/09/17 20: 59; Admin Dose 10 MG; Start 01/30/17 at 21:00 Multivit/Ca Carb/ B Cmplx/FA/Prenat (Paulina-Chrissy) 1 tab DAILY PO Last administered on 02/10/17 08:19; Admin Dose 1 TAB; Start 01/30/17 at 09:00 Carvedilol (Coreg) 3.125 mg BID PO Last administered on 02/09/17 20:59; Admin Dose 3.125 MG; Start 01/30/17 at 00:00 Miscellaneous Information 1 ea NOTE XX ; Start 01/30/17 at 01:00 Glucose (Glutose) 15 gm Q15M PRN PO DECREASED GLUCOSE; Start 01/30/17 at 01:00 Glucose (Glutose) 22.5 gm Q15M PRN PO DECREASED GLUCOSE; Start 01/30/17 at 01: 00 Dextrose (D50w Syringe) 25 ml Q15M PRN IV DECREASED GLUCOSE; Start 01/30/17 at 01:00 Dextrose (D50w Syringe) 50 ml Q15M PRN IV DECREASED GLUCOSE; Start 01/30/17 at 01:00 Glucagon (Glucagen) 1 mg Q15M PRN IM DECREASED GLUCOSE; Start 01/30/17 at 01:00 Glucose (Glutose) 15 gm Q15M PRN BUCCAL DECREASED GLUCOSE; Start 01/30/17 at 01 :00 Diagnostic Test (Pha) (Accu-Chek) 1 ea 02 XX Last administered on 02/09/17 02: 00; Admin Dose 1 EA; Start 01/31/17 at 02:00 Nifedipine (Procardia Xl) 30 mg BID PO Last administered on 02/09/17 20:59; Admin Dose 30 MG; Start 02/01/17 at 21:00 Nicotine (Nicoderm 14 Mg/ 24hr) 1 patch DAILY TRANSDERM Last administered on 08:20; Admin Dose 1 PATCH; Start 02/05/17 at 09:00 Famotidine (Pepcid) 20 mg DAILY PO Last administered on 02/10/17 08:19; Admin Dose 20 MG; Start 02/05/17 at 12:00 Docusate Sodium (Colace) 100 mg BID PO Last administered on 02/10/17 08:20; Admin Dose 100 MG; Start 02/07/17 at 15:00 Polyethylene Glycol (Miralax) 17 gm BID PO Last administered on 02/10/17 08:20 ; Admin Dose 17 GM; Start 02/07/17 at 21:00 Bisacodyl (Dulcolax) 10 mg DAILY PRN PO CONSTIPATION; Start 02/07/17 at 16:30 Acetaminophen/ Hydrocodone Bitart ([place] (5/325)) 2 tab Q4H PRN PO pain; Start 02/08/17 at 14:00 Acetaminophen/ Hydrocodone Bitart 1 tab 1 tab Q4H PRN PO pain Last administered on 02/08/17 15:00; Admin Dose 1 TAB; Start 02/08/17 at 14:00 Piperacillin Sod/ Tazobactam Sod (Zosyn 2.25gm/ 50ml (Pmx)) 50 ml @ 200 mls/hr Q8 IVPB Last administered on 02/10/17 05:40; Admin Dose 200 MLS/HR; Start at 06:00 Assessment/Plan Chief Complaint/Hosp Course acute onset LE weakness unclear etiology MRI T Spine: There is multilevel disc space narrowing which appears more pronounced, moderate - severe at T2-3 through T9-10. Minimal posterior disc osteophytes are seen at T3-4, T5-6 and T6-7. No central canal stenosis is identified. Facet arthropathy seen at T5-6 on the right. No high-grade foraminal narrowing is seen. The cord is not well assessed due to motion artifacts. MRI L Spine: Multilevel lumbar spondylosis with multilevel foraminal narrowing as described. No evidence for fracture or metastatic disease. Suggestion of increased central canal signal of the distal cord on the sagittal images. LP showed WBC of 45, 96% mononuclear, CSF glucose 107, CSF protein 66. Appears to be possible viral meningitis. West Nile Antibody Returned IgG >1.70 IgM 0.9 Recommendations: no improvement with Solumedrol for 3 days would recommend further outpatient studies EMG/NCV to evaluate for possible demyelinating polyneuropathy such as CIDP continue PT/OT Problems: CARI GONZALES MD Feb 10, 2017 11:31
--- NOTE | 2017-02-10 12:42 | CONS ---
Date/Time of Note Date/Time of Note DATE: 02/10/17 TIME: 12:41 Assessment/Plan Assessment/Plan Chief Complaint/Hosp Course Alert, feels comfortable denies pain Temperature 98.1 pulse 80 respirations 17 blood pressure 146/60 saturation 95 on room air Blood culture on admission grew Klebsiella pneumonia susceptible to all antibiotics, urine culture growing gram-negative rods Abx: Zosyn Physical examination: Obese, well-developed elderly [place] man who is alert in no distress. Head atraumatic normocephalic sclerae nonicteric vehicle mucosa pink neck is supple chest rise symmetrical breath sounds clear heart S1- S2 abdomen soft bowel sounds present extremities without cyanosis Assessment: 1. GNR bacteremia, poss 2 to UTI 2. Viral meningitis 3. End-stage renal disease, hemodialysis dependent 4. Diabetes. 5. Coronary artery disease and hypertension Plan: Patient remains stable, continue Zosyn for now await for urine cultures, will order bladder scan to make sure he does not retain urine, follow neurology/ renal rec-s DW patient discussed with RN Problems: Consultation Date/Type/Reason Admit Date/Time Jan 29, 2017 at 19:38 Initial Consult Date 01/30/17 Type of Consultation: ID Exam/Review of Systems Vital Signs Vitals Vital Signs Date Time Temp Pulse Resp B/P Pulse Ox O2 Delivery O2 Flow Rate FiO2 02/10/17 12:16 82 02/10/17 11:48 98.1 17 146/60 95 02/10/17 07:18 3.0 02/09/17 20:00 Nasal Cannula Intake and Output 02/09/17 02/09/17 02/10/17 15:00 23:00 07:00 Intake Total 400 ml 850 ml Output Total 150 ml 900 ml Balance 250 ml -50 ml Results Result Diagram: 02/08/17 1100 02/08/17 1100 Results 24 hrs Laboratory Tests Test 02/09/17 17:23 02/09/17 19:10 02/09/17 20:57 02/10/17 07:20 Bedside Glucose 168 145 Urine Color YELLOW Urine Clarity TURBID A Urine pH 8.0 Urine Specific [place] 1.012 Urine Ketones NEGATIVE Urine Nitrite NEGATIVE Urine Bilirubin NEGATIVE Urine Urobilinogen NEGATIVE Urine Leukocyte Esterase 3+ H Urine Microscopic RBC 6 H Urine Microscopic WBC > 182 H Urine Bacteria MODERATE Urine Hemoglobin NEGATIVE Urine Glucose NEGATIVE Urine Total Protein 3+ H Lab Scanned Report REFERENCE LAB Test 02/10/17 08:06 02/10/17 11:38 Bedside Glucose 122 158 Medications Medications Current Medications Ondansetron HCl (Zofran Inj) 4 mg Q6 PRN IV NAUSEA AND/OR VOMITING Last administered on 02/04/17 20:49; Admin Dose 4 MG; Start 01/30/17 at 00:00 Acetaminophen (Tylenol Tab) 650 mg Q6H PRN PO PAIN AND OR ELEVATED TEMP Last administered on 02/09/17 04:46; Admin Dose 650 MG; Start 01/30/17 at 00:00 Clonidine (Catapres) 0.1 mg TID PRN PO FOR SBP >160 Last administered on 00:29; Admin Dose 0.1 MG; Start 01/30/17 at 00:00 Ergocalciferol (Drisdol) 50,000 unit Q7D PO Last administered on 02/08/17 08: 44; Admin Dose 50,000 UNIT; Start 02/01/17 at 09:00 Febuxostat (Uloric) 40 mg DAILY PO Last administered on 02/10/17 08:20; Admin Dose 40 MG; Start 01/30/17 at 09:00 Hydralazine HCl (Apresoline) 50 mg BID PO Last administered on 02/09/17 21:00 ; Admin Dose 50 MG; Start 01/30/17 at 00:00 Isosorbide Mononitrate (Imdur) 60 mg DAILY PO Last administered on 02/09/17 08 :49; Admin Dose 60 MG; Start 01/30/17 at 09:00 Prasugrel (Effient) 10 mg DAILY PO Last administered on 02/10/17 08:20; Admin Dose 10 MG; Start 01/30/17 at 09:00 Ropinirole HCl (Requip) 0.25 mg HS PO Last administered on 02/09/17 21:00; Admin Dose 0.25 MG; Start 01/30/17 at 21:00 Tamsulosin HCl (Flomax) 0.4 mg DAILY@21 PO Last administered on 02/09/17 21:00 ; Admin Dose 0.4 MG; Start 01/30/17 at 21:00 Fish Oil (Fish Oil) 1,000 mg BID PO Last administered on 02/10/17 08:20; Admin Dose 1,000 MG; Start 01/31/17 at 09:30 Atorvastatin Calcium (Lipitor) 10 mg QHS PO Last administered on 02/09/17 20: 59; Admin Dose 10 MG; Start 01/30/17 at 21:00 Multivit/Ca Carb/ B Cmplx/FA/Prenat (Paulina-Chrissy) 1 tab DAILY PO Last administered on 02/10/17 08:19; Admin Dose 1 TAB; Start 01/30/17 at 09:00 Carvedilol (Coreg) 3.125 mg BID PO Last administered on 02/09/17 20:59; Admin Dose 3.125 MG; Start 01/30/17 at 00:00 Miscellaneous Information 1 ea NOTE XX ; Start 01/30/17 at 01:00 Glucose (Glutose) 15 gm Q15M PRN PO DECREASED GLUCOSE; Start 01/30/17 at 01:00 Glucose (Glutose) 22.5 gm Q15M PRN PO DECREASED GLUCOSE; Start 01/30/17 at 01: 00 Dextrose (D50w Syringe) 25 ml Q15M PRN IV DECREASED GLUCOSE; Start 01/30/17 at 01:00 Dextrose (D50w Syringe) 50 ml Q15M PRN IV DECREASED GLUCOSE; Start 01/30/17 at 01:00 Glucagon (Glucagen) 1 mg Q15M PRN IM DECREASED GLUCOSE; Start 01/30/17 at 01:00 Glucose (Glutose) 15 gm Q15M PRN BUCCAL DECREASED GLUCOSE; Start 01/30/17 at 01 :00 Diagnostic Test (Pha) (Accu-Chek) 1 ea 02 XX Last administered on 02/09/17 02: 00; Admin Dose 1 EA; Start 01/31/17 at 02:00 Nifedipine (Procardia Xl) 30 mg BID PO Last administered on 02/09/17 20:59; Admin Dose 30 MG; Start 02/01/17 at 21:00 Nicotine (Nicoderm 14 Mg/ 24hr) 1 patch DAILY TRANSDERM Last administered on 08:20; Admin Dose 1 PATCH; Start 02/05/17 at 09:00 Famotidine (Pepcid) 20 mg DAILY PO Last administered on 02/10/17 08:19; Admin Dose 20 MG; Start 02/05/17 at 12:00 Docusate Sodium (Colace) 100 mg BID PO Last administered on 02/10/17 08:20; Admin Dose 100 MG; Start 02/07/17 at 15:00 Polyethylene Glycol (Miralax) 17 gm BID PO Last administered on 02/10/17 08:20 ; Admin Dose 17 GM; Start 02/07/17 at 21:00 Bisacodyl (Dulcolax) 10 mg DAILY PRN PO CONSTIPATION; Start 02/07/17 at 16:30 Acetaminophen/ Hydrocodone Bitart ([place] (5/325)) 2 tab Q4H PRN PO pain; Start 02/08/17 at 14:00 Acetaminophen/ Hydrocodone Bitart 1 tab 1 tab Q4H PRN PO pain Last administered on 02/08/17 15:00; Admin Dose 1 TAB; Start 02/08/17 at 14:00 Piperacillin Sod/ Tazobactam Sod (Zosyn 2.25gm/ 50ml (Pmx)) 50 ml @ 200 mls/hr Q8 IVPB Last administered on 02/10/17 05:40; Admin Dose 200 MLS/HR; Start at 06:00 JAROD NORIEGA NP Feb 10, 2017 12:42
--- NOTE | 2017-02-10 14:16 | PN ---
Date/Time of Note Date/Time of Note DATE: 02/10/17 TIME: 14:13 Assessment/Plan VTE Prophylaxis VTE Prophylaxis Intervention: SCD's Lines/Catheters IV C[facility]ter Type [facility]from [facility] [place] Urinary Cath still in place: No Assessment/Plan Chief Complaint/Hosp Course Assessment and plan 1. Bilateral lower extremity weakness. Imaging of the brain is negative for any acute findings. Patient did have lumbar spine CT that did show multilevel central canal and neural foraminal stenosis. CSF analysis suggestive of viral meningitis. Noted with Klebsiella pneumonia in the blood. Continue with ID recommendations. . 2. ESRD. Continue on dialysis per nephrology recommendations. 3. Essential hypertension. Continue antihypertensives as needed 4. Diabetes. Continue insulin regimen. Stable at present. 5. CAD. Continue Dilantin therapy. 6 dyslipidemia. on statin medication. 7. Anemia of chronic disease. Stable at present. Monitor for now. Epogen per director of child welfare services. Disposition and plan: Noted with elevated white count. Noted also gram- negative bacteria in the urine. Follow-up on final cultures. Antibiotic regimen per ID change consultant. Continue inpatient monitoring Discussed plan of care wireema Munguia Problems: Subjective 24 Hr Interval Summary Free Text/Dictation Patient resting at this time. No apparent distress at this time. Comfortable at present Exam/Review of Systems Vital Signs Vitals Vital Signs Date Time Temp Pulse Resp B/P Pulse Ox O2 Delivery O2 Flow Rate FiO2 02/10/17 12:16 82 02/10/17 11:48 98.1 17 146/60 95 02/10/17 08:00 Nasal Cannula 02/10/17 07:18 3.0 Intake and Output 02/09/17 02/09/17 02/10/17 15:00 23:00 07:00 Intake Total 400 ml 850 ml Output Total 150 ml 900 ml Balance 250 ml -50 ml Exam Constitutional: alert, oriented Psych: nl mood/affect Head: normocephalic Cardiovascular: regular rate and rhythm Gastrointestinal: non-tender, soft Musculoskeletal: No nl gait and stance Extremities: normal pulses 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: nl mental status, nl speech Skin: nl turgor Results Result Diagram: 02/08/17 1100 02/08/17 1100 Results 24 hrs Laboratory Tests Test 02/09/17 17:23 02/09/17 19:10 02/09/17 20:57 02/10/17 07:20 Bedside Glucose 168 145 Urine Color YELLOW Urine Clarity TURBID A Urine pH 8.0 Urine Specific [place] 1.012 Urine Ketones NEGATIVE Urine Nitrite NEGATIVE Urine Bilirubin NEGATIVE Urine Urobilinogen NEGATIVE Urine Leukocyte Esterase 3+ H Urine Microscopic RBC 6 H Urine Microscopic WBC > 182 H Urine Bacteria MODERATE Urine Hemoglobin NEGATIVE Urine Glucose NEGATIVE Urine Total Protein 3+ H Lab Scanned Report REFERENCE LAB Test 02/10/17 08:06 02/10/17 11:38 Bedside Glucose 122 158 Medications Medications Current Medications Ondansetron HCl (Zofran Inj) 4 mg Q6 PRN IV NAUSEA AND/OR VOMITING Last administered on 02/04/17 20:49; Admin Dose 4 MG; Start 01/30/17 at 00:00 Acetaminophen (Tylenol Tab) 650 mg Q6H PRN PO PAIN AND OR ELEVATED TEMP Last administered on 02/09/17 04:46; Admin Dose 650 MG; Start 01/30/17 at 00:00 Clonidine (Catapres) 0.1 mg TID PRN PO FOR SBP >160 Last administered on 00:29; Admin Dose 0.1 MG; Start 01/30/17 at 00:00 Ergocalciferol (Drisdol) 50,000 unit Q7D PO Last administered on 02/08/17 08: 44; Admin Dose 50,000 UNIT; Start 02/01/17 at 09:00 Febuxostat (Uloric) 40 mg DAILY PO Last administered on 02/10/17 08:20; Admin Dose 40 MG; Start 01/30/17 at 09:00 Hydralazine HCl (Apresoline) 50 mg BID PO Last administered on 02/09/17 21:00 ; Admin Dose 50 MG; Start 01/30/17 at 00:00 Isosorbide Mononitrate (Imdur) 60 mg DAILY PO Last administered on 02/09/17 08 :49; Admin Dose 60 MG; Start 01/30/17 at 09:00 Prasugrel (Effient) 10 mg DAILY PO Last administered on 02/10/17 08:20; Admin Dose 10 MG; Start 01/30/17 at 09:00 Ropinirole HCl (Requip) 0.25 mg HS PO Last administered on 02/09/17 21:00; Admin Dose 0.25 MG; Start 01/30/17 at 21:00 Tamsulosin HCl (Flomax) 0.4 mg DAILY@21 PO Last administered on 02/09/17 21:00 ; Admin Dose 0.4 MG; Start 01/30/17 at 21:00 Fish Oil (Fish Oil) 1,000 mg BID PO Last administered on 02/10/17 08:20; Admin Dose 1,000 MG; Start 01/31/17 at 09:30 Atorvastatin Calcium (Lipitor) 10 mg QHS PO Last administered on 02/09/17 20: 59; Admin Dose 10 MG; Start 01/30/17 at 21:00 Multivit/Ca Carb/ B Cmplx/FA/Prenat (Paulina-Chrissy) 1 tab DAILY PO Last administered on 02/10/17 08:19; Admin Dose 1 TAB; Start 01/30/17 at 09:00 Carvedilol (Coreg) 3.125 mg BID PO Last administered on 02/09/17 20:59; Admin Dose 3.125 MG; Start 01/30/17 at 00:00 Miscellaneous Information 1 ea NOTE XX ; Start 01/30/17 at 01:00 Glucose (Glutose) 15 gm Q15M PRN PO DECREASED GLUCOSE; Start 01/30/17 at 01:00 Glucose (Glutose) 22.5 gm Q15M PRN PO DECREASED GLUCOSE; Start 01/30/17 at 01: 00 Dextrose (D50w Syringe) 25 ml Q15M PRN IV DECREASED GLUCOSE; Start 01/30/17 at 01:00 Dextrose (D50w Syringe) 50 ml Q15M PRN IV DECREASED GLUCOSE; Start 01/30/17 at 01:00 Glucagon (Glucagen) 1 mg Q15M PRN IM DECREASED GLUCOSE; Start 01/30/17 at 01:00 Glucose (Glutose) 15 gm Q15M PRN BUCCAL DECREASED GLUCOSE; Start 01/30/17 at 01 :00 Diagnostic Test (Pha) (Accu-Chek) 1 ea 02 XX Last administered on 02/09/17 02: 00; Admin Dose 1 EA; Start 01/31/17 at 02:00 Nifedipine (Procardia Xl) 30 mg BID PO Last administered on 02/09/17 20:59; Admin Dose 30 MG; Start 02/01/17 at 21:00 Nicotine (Nicoderm 14 Mg/ 24hr) 1 patch DAILY TRANSDERM Last administered on 08:20; Admin Dose 1 PATCH; Start 02/05/17 at 09:00 Famotidine (Pepcid) 20 mg DAILY PO Last administered on 02/10/17 08:19; Admin Dose 20 MG; Start 02/05/17 at 12:00 Docusate Sodium (Colace) 100 mg BID PO Last administered on 02/10/17 08:20; Admin Dose 100 MG; Start 02/07/17 at 15:00 Polyethylene Glycol (Miralax) 17 gm BID PO Last administered on 02/10/17 08:20 ; Admin Dose 17 GM; Start 02/07/17 at 21:00 Bisacodyl (Dulcolax) 10 mg DAILY PRN PO CONSTIPATION; Start 02/07/17 at 16:30 Acetaminophen/ Hydrocodone Bitart ([place] (5/325)) 2 tab Q4H PRN PO pain; Start 02/08/17 at 14:00 Acetaminophen/ Hydrocodone Bitart 1 tab 1 tab Q4H PRN PO pain Last administered on 02/08/17 15:00; Admin Dose 1 TAB; Start 02/08/17 at 14:00 Piperacillin Sod/ Tazobactam Sod (Zosyn 2.25gm/ 50ml (Pmx)) 50 ml @ 200 mls/hr Q8 IVPB Last administered on 02/10/17 05:40; Admin Dose 200 MLS/HR; Start at 06:00 JANES RAINES Feb 10, 2017 14:16
[2017-02-10] MEDS: ISOSORBIDE MONONITRATE(SR)60 MG TAB PO SCH (17:25)
[2017-02-10] MEDS: TAMSULOSIN (SR) 0.4 MG CAP PO SCH (20:58)
[2017-02-10] MEDS: ROPINIROLE 0.25 MG TAB PO SCH (20:58)
[2017-02-10] MEDS: ATORVASTATIN 10 MG TAB PO SCH (20:58)
[2017-02-10] MEDS ORDERED: ZOLPIDEM 5 MG TAB PO PRN (23:30)
[2017-02-11] VITALS (12 sets, daily range): BP systolic 100–143; BP diastolic 52–74; PULSE 80–95; RESP 18–20
[2017-02-11] MEDS: ACCU-CHEK XX SCH (02:00)
[2017-02-11] MEDS: PIPER-TAZO 2.25 GM (PMX) 50 ML IVPB SCH (06:58)
[2017-02-11] MEDS: INSULIN ASPART [NOVOLOG] 3 ML PEN SC SCH ×4 (08:00→21:00)
--- NOTE | 2017-02-11 08:16 | PN ---
DATE: 02/11/2017 SUBJECTIVE DATA: The patient is stable. Continues to have lower extremity weakness. I spoke with Neurology yesterday and plan for IVIG. We will coordinate it so that it is on non-dialysis today and/or is given after hemodialysis. OBJECTIVE DATA: VITAL SIGNS: Blood pressure 130/65, temperature 98.4, pulse 91, respirations 20. HEENT: Head is normocephalic. NECK: Supple. HEART: Regular rate. LUNGS: Diminished breath sounds at the base. ABDOMEN: Soft, nontender to palpation. No rebound or guarding. EXTREMITIES: Negative for clubbing, cyanosis. No edema. DERMATOLOGIC: Clean. No rashes. MUSCULOSKELETAL: No joint effusion. NEUROLOGIC: No change in exam. MEDICATIONS: Reviewed. LABORATORY AND DIAGNOSTIC DATA: Reviewed. No new labs. ASSESSMENT AND PLAN: 1. End-stage renal disease. Plan for hemodialysis tomorrow. 2. Mineral bone disorder. Continue monitor calcium and phosphorus levels. 3. Anemia. Monitor H and H levels. 4. Congestive heart failure. Continue ultrafiltration. 5. Hypertension. Continue current blood pressure regimen. 6. Sepsis bacteremia. Continue current antibiotic regimen. 7. 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 Continue current treatment plan. Follow up Neurology. The patient is scheduled for IVIG. 8. Diabetes. Continue Accu-Cheks and sliding scale. Dictated By: Arvind Galindo DO /[email or web address]/[email or web address] /Document#: [id number]
[2017-02-11] MEDS: POLYETHYLENE GLYCOL 17 GM PACKET PO SCH ×2 (08:29→21:02)
[2017-02-11] MEDS: MULTIVIT/CA CARB/B CMPLX/FA TAB PO SCH (08:31)
[2017-02-11] MEDS: SEVELAMER 800 MG TAB PO SCH ×3 (08:31→17:36)
[2017-02-11] MEDS: PRASUGREL HYDROCHLORIDE 10 MG TABLET PO SCH (08:31)
[2017-02-11] MEDS: FISH OIL 1,000 MG CAP PO SCH ×2 (08:32→21:03)
[2017-02-11] MEDS: DOCUSATE SODIUM 100 MG CAP PO SCH ×2 (08:32→21:03)
[2017-02-11] MEDS: FAMOTIDINE 20 MG TAB PO SCH (08:32)
[2017-02-11] MEDS: ISOSORBIDE MONONITRATE(SR)60 MG TAB PO SCH (08:33)
[2017-02-11] MEDS: NIFEdipine (XL) 30 MG TAB PO SCH ×2 (08:34→21:03)
[2017-02-11] MEDS ORDERED: IMMUNE GLOBULIN (HUMAN) 6 GM INJ IV SCH (09:00)
[2017-02-11] MEDS: NICOTINE (14 MG/24 HR) PATCH TRANSDERM SCH (09:29)
[2017-02-11] MEDS: FEBUXOSTAT 40 MG TABLET PO SCH (09:32)
--- NOTE | 2017-02-11 10:49 | CONS ---
Date/Time of Note Date/Time of Note DATE: 02/11/17 TIME: 10:47 Consult Date/Type/Reason Admit Date/Time Jan 29, 2017 at 19:38 Initial Consult Date 01/30/17 Type of Consultation: Neurology Reason for Consultation LE weakness Subjective weakness persistent unable to ambulate plan for IVIG Objective Vital Signs Date Time Temp Pulse Resp B/P Pulse Ox O2 Delivery O2 Flow Rate FiO2 02/11/17 08:12 89 02/11/17 07:54 98.4 20 138/65 92 02/11/17 07:43 3.0 02/10/17 08:00 Nasal Cannula Intake and Output 02/10/17 02/10/17 02/11/17 15:00 23:00 07:00 Intake Total 500 ml 1050 ml 550 ml Output Total 3000 ml 800 ml 600 ml Balance -2500 ml 250 ml -50 ml Exam awake and alert oriented x3 fluent speech speaks [place] bedside casing mixer used able to follow commands CN: LIU, VFF, no nystagmus no facial asymmetry palate upgoing uvula midline scm/trap intact Motor strength is 5/5 in UE LE are 4-/5 4-/5 weakness plantarflexion Sensory decreased pinprick in hands and PP LE below lower abdomen Coordination no ataxia Reflexes 2+ upper extremities and KJ absent AJ toes down Results/Medications Result Diagram: 02/08/17 1100 02/08/17 1100 Results 24 hrs Laboratory Tests Test 02/10/17 11:38 02/10/17 17:14 02/10/17 20:29 02/11/17 07:38 Bedside Glucose 158 152 152 132 Medications Current Medications Ondansetron HCl (Zofran Inj) 4 mg Q6 PRN IV NAUSEA AND/OR VOMITING Last administered on 02/04/17 20:49; Admin Dose 4 MG; Start 01/30/17 at 00:00 Acetaminophen (Tylenol Tab) 650 mg Q6H PRN PO PAIN AND OR ELEVATED TEMP Last administered on 02/09/17 04:46; Admin Dose 650 MG; Start 01/30/17 at 00:00 Clonidine (Catapres) 0.1 mg TID PRN PO FOR SBP >160 Last administered on 00:29; Admin Dose 0.1 MG; Start 01/30/17 at 00:00 Ergocalciferol (Drisdol) 50,000 unit Q7D PO Last administered on 02/08/17 08: 44; Admin Dose 50,000 UNIT; Start 02/01/17 at 09:00 Febuxostat (Uloric) 40 mg DAILY PO Last administered on 02/11/17 09:32; Admin Dose 40 MG; Start 01/30/17 at 09:00 Hydralazine HCl (Apresoline) 50 mg BID PO Last administered on 02/11/17 08:32 ; Admin Dose 50 MG; Start 01/30/17 at 00:00 Isosorbide Mononitrate (Imdur) 60 mg DAILY PO Last administered on 02/11/17 08 :33; Admin Dose 60 MG; Start 01/30/17 at 09:00 Prasugrel (Effient) 10 mg DAILY PO Last administered on 02/11/17 08:31; Admin Dose 10 MG; Start 01/30/17 at 09:00 Ropinirole HCl (Requip) 0.25 mg HS PO Last administered on 02/10/17 20:58; Admin Dose 0.25 MG; Start 01/30/17 at 21:00 Tamsulosin HCl (Flomax) 0.4 mg DAILY@21 PO Last administered on 02/10/17 20:58 ; Admin Dose 0.4 MG; Start 01/30/17 at 21:00 Fish Oil (Fish Oil) 1,000 mg BID PO Last administered on 02/11/17 08:32; Admin Dose 1,000 MG; Start 01/31/17 at 09:30 Atorvastatin Calcium (Lipitor) 10 mg QHS PO Last administered on 02/10/17 20: 58; Admin Dose 10 MG; Start 01/30/17 at 21:00 Multivit/Ca Carb/ B Cmplx/FA/Prenat (Paulina-Chrissy) 1 tab DAILY PO Last administered on 02/11/17 08:31; Admin Dose 1 TAB; Start 01/30/17 at 09:00 Carvedilol (Coreg) 3.125 mg BID PO Last administered on 02/11/17 08:33; Admin Dose 3.125 MG; Start 01/30/17 at 00:00 Miscellaneous Information 1 ea NOTE XX ; Start 01/30/17 at 01:00 Glucose (Glutose) 15 gm Q15M PRN PO DECREASED GLUCOSE; Start 01/30/17 at 01:00 Glucose (Glutose) 22.5 gm Q15M PRN PO DECREASED GLUCOSE; Start 01/30/17 at 01: 00 Dextrose (D50w Syringe) 25 ml Q15M PRN IV DECREASED GLUCOSE; Start 01/30/17 at 01:00 Dextrose (D50w Syringe) 50 ml Q15M PRN IV DECREASED GLUCOSE; Start 01/30/17 at 01:00 Glucagon (Glucagen) 1 mg Q15M PRN IM DECREASED GLUCOSE; Start 01/30/17 at 01:00 Glucose (Glutose) 15 gm Q15M PRN BUCCAL DECREASED GLUCOSE; Start 01/30/17 at 01 :00 Diagnostic Test (Pha) (Accu-Chek) 1 ea 02 XX Last administered on 02/09/17 02: 00; Admin Dose 1 EA; Start 01/31/17 at 02:00 Nifedipine (Procardia Xl) 30 mg BID PO Last administered on 02/11/17 08:34; Admin Dose 30 MG; Start 02/01/17 at 21:00 Nicotine (Nicoderm 14 Mg/ 24hr) 1 patch DAILY TRANSDERM Last administered on 09:29; Admin Dose 1 PATCH; Start 02/05/17 at 09:00 Famotidine (Pepcid) 20 mg DAILY PO Last administered on 02/11/17 08:32; Admin Dose 20 MG; Start 02/05/17 at 12:00 Docusate Sodium (Colace) 100 mg BID PO Last administered on 02/11/17 08:32; Admin Dose 100 MG; Start 02/07/17 at 15:00 Polyethylene Glycol (Miralax) 17 gm BID PO Last administered on 02/11/17 08:29 ; Admin Dose 17 GM; Start 02/07/17 at 21:00 Bisacodyl (Dulcolax) 10 mg DAILY PRN PO CONSTIPATION; Start 02/07/17 at 16:30 Acetaminophen/ Hydrocodone Bitart ([place] (5/325)) 2 tab Q4H PRN PO pain; Start 02/08/17 at 14:00 Acetaminophen/ Hydrocodone Bitart ([place] (5/325)) 1 tab Q4H PRN PO pain Last administered on 9/25/17at 15:00; Admin Dose 1 TAB; Start 02/08/17 at 14:00 Immune Globulin (Carimune Nf) 0.4 gm DAILY IV ; Start 02/11/17 at 09:00; Stop 02/16/17 at 08:59; Status UNV Zolpidem Tartrate 10 mg 10 mg HS PRN PO INSOMNIA Last administered on t 23:23; Admin Dose 10 MG; Start 02/10/17 at 23:30 Ceftriaxone Sodium (Rocephin) 50 ml @ 100 mls/hr Q24H IVPB ; Start 02/11/17 at 11:30 Assessment/Plan Chief Complaint/Hosp Course acute onset LE weakness unclear etiology, possible underlying demyelinating pathology? MRI T Spine: There is multilevel disc space narrowing which appears more pronounced, moderate - severe at T2-3 through T9-10. Minimal posterior disc osteophytes are seen at T3-4, T5-6 and T6-7. No central canal stenosis is identified. Facet arthropathy seen at T5-6 on the right. No high-grade foraminal narrowing is seen. The cord is not well assessed due to motion artifacts. MRI L Spine: Multilevel lumbar spondylosis with multilevel foraminal narrowing as described. No evidence for fracture or metastatic disease. Suggestion of increased central canal signal of the distal cord on the sagittal images. LP showed WBC of 45, 96% mononuclear, CSF glucose 107, CSF protein 66. Appears to be possible viral meningitis. West Nile Antibody Returned IgG >1.70 IgM 0.9 Recommendations: no improvement with Solumedrol for 3 days trial of IVIG 0.4 g/kg over 5 days, coordinate with dialysis would recommend further outpatient studies EMG/NCV to evaluate for possible demyelinating polyneuropathy such as CIDP will request Dr. Cagle to follow over weekend continue PT/OT Problems: CARI GONZALES MD Feb 11, 2017 10:49
[2017-02-11] MEDS: CEFTRIAXONE 1 GM/50 ML (PMX) 50 ML IVPB SCH (12:19)
--- NOTE | 2017-02-11 12:28 | CONS ---
Date/Time of Note Date/Time of Note DATE: 02/11/17 TIME: 12:25 Assessment/Plan Assessment/Plan Chief Complaint/Hosp Course Sleeping looks comfortable, no fevers Temperature 98.4 pulse 91 respirations 20 blood pressure 138/65 saturation 97% on nasal cannula Blood culture on admission grew Klebsiella pneumonia susceptible to all antibiotics, urine culture growing gram-negative rods Abx: Rocephin Physical examination: Obese, well-developed elderly [place] man who is in no distress. Head atraumatic normocephalic sclerae nonicteric vehicle mucosa pink neck is supple chest rise symmetrical breath sounds clear heart S1-S2 abdomen soft bowel sounds present extremities without cyanosis Assessment: 1. GNR bacteremia, poss 2 to UTI 2. Viral meningitis, West Nile virus CSF IgM equivocal 3. End-stage renal disease, hemodialysis dependent 4. Diabetes. 5. Coronary artery disease and hypertension Plan: Patient remains stable, antibiotics were adjusted to final cultures, continue present care, follow neurology recommendations, plan for IVIG trial DW staff Problems: Consultation Date/Type/Reason Admit Date/Time Jan 29, 2017 at 19:38 Initial Consult Date 01/30/17 Type of Consultation: ID Exam/Review of Systems Vital Signs Vitals Vital Signs Date Time Temp Pulse Resp B/P Pulse Ox O2 Delivery O2 Flow Rate FiO2 02/11/17 11:40 99.2 88 18 126/59 97 02/11/17 08:00 Nasal Cannula 02/11/17 07:43 3.0 Intake and Output 02/10/17 02/10/17 02/11/17 15:00 23:00 07:00 Intake Total 500 ml 1050 ml 550 ml Output Total 3000 ml 800 ml 600 ml Balance -2500 ml 250 ml -50 ml Results Result Diagram: 02/08/17 1100 02/08/17 1100 Results 24 hrs Laboratory Tests Test 02/10/17 17:14 02/10/17 20:29 02/11/17 07:38 Bedside Glucose 152 152 132 Medications Medications Current Medications Ondansetron HCl (Zofran Inj) 4 mg Q6 PRN IV NAUSEA AND/OR VOMITING Last administered on 02/04/17 20:49; Admin Dose 4 MG; Start 01/30/17 at 00:00 Acetaminophen (Tylenol Tab) 650 mg Q6H PRN PO PAIN AND OR ELEVATED TEMP Last administered on 02/09/17 04:46; Admin Dose 650 MG; Start 01/30/17 at 00:00 Clonidine (Catapres) 0.1 mg TID PRN PO FOR SBP >160 Last administered on 00:29; Admin Dose 0.1 MG; Start 01/30/17 at 00:00 Ergocalciferol (Drisdol) 50,000 unit Q7D PO Last administered on 02/08/17 08: 44; Admin Dose 50,000 UNIT; Start 02/01/17 at 09:00 Febuxostat (Uloric) 40 mg DAILY PO Last administered on 02/11/17 09:32; Admin Dose 40 MG; Start 01/30/17 at 09:00 Hydralazine HCl (Apresoline) 50 mg BID PO Last administered on 02/11/17 08:32 ; Admin Dose 50 MG; Start 01/30/17 at 00:00 Isosorbide Mononitrate (Imdur) 60 mg DAILY PO Last administered on 02/11/17 08 :33; Admin Dose 60 MG; Start 01/30/17 at 09:00 Prasugrel (Effient) 10 mg DAILY PO Last administered on 02/11/17 08:31; Admin Dose 10 MG; Start 01/30/17 at 09:00 Ropinirole HCl (Requip) 0.25 mg HS PO Last administered on 02/10/17 20:58; Admin Dose 0.25 MG; Start 01/30/17 at 21:00 Tamsulosin HCl (Flomax) 0.4 mg DAILY@21 PO Last administered on 02/10/17 20:58 ; Admin Dose 0.4 MG; Start 01/30/17 at 21:00 Fish Oil (Fish Oil) 1,000 mg BID PO Last administered on 02/11/17 08:32; Admin Dose 1,000 MG; Start 01/31/17 at 09:30 Atorvastatin Calcium (Lipitor) 10 mg QHS PO Last administered on 02/10/17 20: 58; Admin Dose 10 MG; Start 01/30/17 at 21:00 Multivit/Ca Carb/ B Cmplx/FA/Prenat (Paulina-Chrissy) 1 tab DAILY PO Last administered on 02/11/17 08:31; Admin Dose 1 TAB; Start 01/30/17 at 09:00 Carvedilol (Coreg) 3.125 mg BID PO Last administered on 02/11/17 08:33; Admin Dose 3.125 MG; Start 01/30/17 at 00:00 Miscellaneous Information 1 ea NOTE XX ; Start 01/30/17 at 01:00 Glucose (Glutose) 15 gm Q15M PRN PO DECREASED GLUCOSE; Start 01/30/17 at 01:00 Glucose (Glutose) 22.5 gm Q15M PRN PO DECREASED GLUCOSE; Start 01/30/17 at 01: 00 Dextrose (D50w Syringe) 25 ml Q15M PRN IV DECREASED GLUCOSE; Start 01/30/17 at 01:00 Dextrose (D50w Syringe) 50 ml Q15M PRN IV DECREASED GLUCOSE; Start 01/30/17 at 01:00 Glucagon (Glucagen) 1 mg Q15M PRN IM DECREASED GLUCOSE; Start 01/30/17 at 01:00 Glucose (Glutose) 15 gm Q15M PRN BUCCAL DECREASED GLUCOSE; Start 01/30/17 at 01 :00 Diagnostic Test (Pha) (Accu-Chek) 1 ea 02 XX Last administered on 02/09/17 02: 00; Admin Dose 1 EA; Start 01/31/17 at 02:00 Nifedipine (Procardia Xl) 30 mg BID PO Last administered on 02/11/17 08:34; Admin Dose 30 MG; Start 02/01/17 at 21:00 Nicotine (Nicoderm 14 Mg/ 24hr) 1 patch DAILY TRANSDERM Last administered on 09:29; Admin Dose 1 PATCH; Start 02/05/17 at 09:00 Famotidine (Pepcid) 20 mg DAILY PO Last administered on 02/11/17 08:32; Admin Dose 20 MG; Start 02/05/17 at 12:00 Docusate Sodium (Colace) 100 mg BID PO Last administered on 02/11/17 08:32; Admin Dose 100 MG; Start 02/07/17 at 15:00 Polyethylene Glycol (Miralax) 17 gm BID PO Last administered on 02/11/17 08:29 ; Admin Dose 17 GM; Start 02/07/17 at 21:00 Bisacodyl (Dulcolax) 10 mg DAILY PRN PO CONSTIPATION; Start 02/07/17 at 16:30 Acetaminophen/ Hydrocodone Bitart ([place] (5/325)) 2 tab Q4H PRN PO pain; Start 02/08/17 at 14:00 Acetaminophen/ Hydrocodone Bitart ([place] (5/325)) 1 tab Q4H PRN PO pain Last administered on 02/08/17 15:00; Admin Dose 1 TAB; Start 02/08/17 at 14:00 Zolpidem Tartrate 10 mg 10 mg HS PRN PO INSOMNIA Last administered on 23:23; Admin Dose 10 MG; Start 02/10/17 at 23:30 Ceftriaxone Sodium 50 ml @ 100 mls/hr Q24H IVPB ; Start 02/11/17 at 11:30 Immune Globulin/N/ A/Sterile Water (Carimune Nf/ Evac Container/ Water Sterile For Inj) 600 ml @ 0 mls/hr DAILY@1530 IV ; Start 02/11/17 at 15:30; Stop at 18:00 JAROD NORIEGA NP Feb 11, 2017 12:28
--- NOTE | 2017-02-11 13:49 | PN ---
Date/Time of Note Date/Time of Note DATE: 02/11/17 TIME: 13:47 Assessment/Plan VTE Prophylaxis VTE Prophylaxis Intervention: SCD's Lines/Catheters IV Catheter Type (from Nrs): [place] [facility] Urinary Cath still in place: Yes Reason Cath still needed: other (indicate) (monitor I&O) Assessment/Plan Chief Complaint/Hosp Course Assessment and plan 1. Bilateral lower extremity weakness. Imaging of the brain is negative for any acute findings. Patient did have lumbar spine CT that did show multilevel central canal and neural foraminal stenosis. CSF analysis suggestive of viral meningitis. Continue with ID recommendations. .Plan for IVIG per neurologist 2. ESRD. Continue on dialysis per nephrology recommendations. 3. Essential hypertension. Continue antihypertensives as needed 4. Diabetes. Continue insulin regimen. Stable at present. 5. CAD. Continue Dilantin therapy. 6 dyslipidemia. on statin medication. 7. Anemia of chronic disease. Stable at present. Monitor for now. 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 8. Bacteremia. cont with abx Disposition and plan: plan for IVIG. continue with neurologist recs Discussed plan of care faby Munguia Problems: Subjective 24 Hr Interval Summary Free Text/Dictation still reports having some weakness ble, little better Exam/Review of Systems Vital Signs Vitals Vital Signs Date Time Temp Pulse Resp B/P Pulse Ox O2 Delivery O2 Flow Rate FiO2 02/11/17 12:14 87 02/11/17 11:40 99.2 18 126/59 97 02/11/17 08:00 Nasal Cannula 02/11/17 07:43 3.0 Intake and Output 02/10/17 02/10/17 02/11/17 14:59 22:59 06:59 Intake Total 500 ml 1050 ml Output Total 3000 ml 800 ml Balance -2500 ml 250 ml Exam Constitutional: alert, oriented Psych: nl mood/affect Head: normocephalic Cardiovascular: regular rate and rhythm Gastrointestinal: non-tender, soft Musculoskeletal: No nl gait and stance Extremities: normal pulses 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: nl mental status, nl speech Skin: nl turgor Results Result Diagram: 02/08/17 1100 02/08/17 1100 Results 24 hrs Laboratory Tests Test 02/10/17 17:14 02/10/17 20:29 02/11/17 07:38 02/11/17 12:22 Bedside Glucose 152 152 132 173 Medications Medications Current Medications Ondansetron HCl (Zofran Inj) 4 mg Q6 PRN IV NAUSEA AND/OR VOMITING Last administered on 02/04/17 20:49; Admin Dose 4 MG; Start 01/30/17 at 00:00 Acetaminophen (Tylenol Tab) 650 mg Q6H PRN PO PAIN AND OR ELEVATED TEMP Last administered on 02/09/17 04:46; Admin Dose 650 MG; Start 01/30/17 at 00:00 Clonidine (Catapres) 0.1 mg TID PRN PO FOR SBP >160 Last administered on 00:29; Admin Dose 0.1 MG; Start 01/30/17 at 00:00 Ergocalciferol (Drisdol) 50,000 unit Q7D PO Last administered on 02/08/17 08: 44; Admin Dose 50,000 UNIT; Start 02/01/17 at 09:00 Febuxostat (Uloric) 40 mg DAILY PO Last administered on 02/11/17 09:32; Admin Dose 40 MG; Start 01/30/17 at 09:00 Hydralazine HCl (Apresoline) 50 mg BID PO Last administered on 02/11/17 08:32 ; Admin Dose 50 MG; Start 01/30/17 at 00:00 Isosorbide Mononitrate (Imdur) 60 mg DAILY PO Last administered on 02/11/17 08 :33; Admin Dose 60 MG; Start 01/30/17 at 09:00 Prasugrel (Effient) 10 mg DAILY PO Last administered on 02/11/17 08:31; Admin Dose 10 MG; Start 01/30/17 at 09:00 Ropinirole HCl (Requip) 0.25 mg HS PO Last administered on 02/10/17 20:58; Admin Dose 0.25 MG; Start 01/30/17 at 21:00 Tamsulosin HCl (Flomax) 0.4 mg DAILY@21 PO Last administered on 02/10/17 20:58 ; Admin Dose 0.4 MG; Start 01/30/17 at 21:00 Fish Oil (Fish Oil) 1,000 mg BID PO Last administered on 02/11/17 08:32; Admin Dose 1,000 MG; Start 01/31/17 at 09:30 Atorvastatin Calcium (Lipitor) 10 mg QHS PO Last administered on 02/10/17 20: 58; Admin Dose 10 MG; Start 01/30/17 at 21:00 Multivit/Ca Carb/ B Cmplx/FA/Prenat (Paulina-Chrissy) 1 tab DAILY PO Last administered on 02/11/17 08:31; Admin Dose 1 TAB; Start 01/30/17 at 09:00 Carvedilol (Coreg) 3.125 mg BID PO Last administered on 02/11/17 08:33; Admin Dose 3.125 MG; Start 01/30/17 at 00:00 Miscellaneous Information 1 ea NOTE XX ; Start 01/30/17 at 01:00 Glucose (Glutose) 15 gm Q15M PRN PO DECREASED GLUCOSE; Start 01/30/17 at 01:00 Glucose (Glutose) 22.5 gm Q15M PRN PO DECREASED GLUCOSE; Start 01/30/17 at 01: 00 Dextrose (D50w Syringe) 25 ml Q15M PRN IV DECREASED GLUCOSE; Start 01/30/17 at 01:00 Dextrose (D50w Syringe) 50 ml Q15M PRN IV DECREASED GLUCOSE; Start 01/30/17 at 01:00 Glucagon (Glucagen) 1 mg Q15M PRN IM DECREASED GLUCOSE; Start 01/30/17 at 01:00 Glucose (Glutose) 15 gm Q15M PRN BUCCAL DECREASED GLUCOSE; Start 01/30/17 at 01 :00 Diagnostic Test (Pha) (Accu-Chek) 1 ea 02 XX Last administered on 02/09/17 02: 00; Admin Dose 1 EA; Start 01/31/17 at 02:00 Nifedipine (Procardia Xl) 30 mg BID PO Last administered on 02/11/17 08:34; Admin Dose 30 MG; Start 02/01/17 at 21:00 Nicotine (Nicoderm 14 Mg/ 24hr) 1 patch DAILY TRANSDERM Last administered on 09:29; Admin Dose 1 PATCH; Start 02/05/17 at 09:00 Famotidine (Pepcid) 20 mg DAILY PO Last administered on 02/11/17 08:32; Admin Dose 20 MG; Start 02/05/17 at 12:00 Docusate Sodium (Colace) 100 mg BID PO Last administered on 02/11/17 08:32; Admin Dose 100 MG; Start 02/07/17 at 15:00 Polyethylene Glycol (Miralax) 17 gm BID PO Last administered on 02/11/17 08:29 ; Admin Dose 17 GM; Start 02/07/17 at 21:00 Bisacodyl (Dulcolax) 10 mg DAILY PRN PO CONSTIPATION; Start 02/07/17 at 16:30 Acetaminophen/ Hydrocodone Bitart ([place] (5/325)) 2 tab Q4H PRN PO pain; Start 02/08/17 at 14:00 Acetaminophen/ Hydrocodone Bitart ([place] (5/325)) 1 tab Q4H PRN PO pain Last administered on 02/08/17 15:00; Admin Dose 1 TAB; Start 02/08/17 at 14:00 Zolpidem Tartrate 10 mg 10 mg HS PRN PO INSOMNIA Last administered on 23:23; Admin Dose 10 MG; Start 02/10/17 at 23:30 Ceftriaxone Sodium 50 ml @ 100 mls/hr Q24H IVPB Last administered on 12:19; Admin Dose 100 MLS/HR; Start 02/11/17 at 11:30 Immune Globulin/N/ A/Sterile Water (Carimune Nf/ Evac Container/ Water Sterile For Inj) 600 ml @ 0 mls/hr DAILY@1530 IV ; Start 02/11/17 at 15:30; Stop at 18:00 JANES RAINES Feb 11, 2017 13:49
[2017-02-11] MEDS ORDERED: DIPHENHYDRAMINE 50 MG CAP PO SCH (14:30)
[2017-02-11] MEDS ORDERED: ACETAMINOPHEN 325 MG TAB PO SCH (14:30)
[2017-02-11] MEDS ORDERED: HYDROCORTISONE 100 MG INJ IV SCH (14:30)
[2017-02-11] MEDS: WATER STERILE FOR IV SCH (15:59)
[2017-02-11] MEDS: EVAC CONTAINER IV SCH (15:59)
[2017-02-11] MEDS: IMMUNE GLOBULIN IV SCH (15:59)
[2017-02-11] MEDS ORDERED: DIPHENHYDRAMINE 50 MG INJ IV ONE (18:30)
[2017-02-11] MEDS ORDERED: ACETAMINOPHEN 325 MG TAB PO ONE (18:30)
[2017-02-11] MEDS ORDERED: HYDROCORTISONE 100 MG INJ IV ONE (18:30)
[2017-02-11] MEDS: ATORVASTATIN 10 MG TAB PO SCH (21:03)
[2017-02-11] MEDS: ROPINIROLE 0.25 MG TAB PO SCH (21:03)
[2017-02-11] MEDS: TAMSULOSIN (SR) 0.4 MG CAP PO SCH (21:03)
[2017-02-12] VITALS (21 sets, daily range): BP systolic 117–176; BP diastolic 54–79; PULSE 75–86; RESP 16–18
[2017-02-12] MEDS: ACCU-CHEK XX SCH (02:51)
[2017-02-12] MEDS: INSULIN ASPART [NOVOLOG] 3 ML PEN SC SCH ×4 (08:00→20:50)
[2017-02-12] MEDS: SEVELAMER 800 MG TAB PO SCH ×3 (09:15→17:29)
[2017-02-12] MEDS: POLYETHYLENE GLYCOL 17 GM PACKET PO SCH ×2 (09:15→20:43)
[2017-02-12] MEDS: MULTIVIT/CA CARB/B CMPLX/FA TAB PO SCH (09:16)
[2017-02-12] MEDS: PRASUGREL HYDROCHLORIDE 10 MG TABLET PO SCH (09:16)
[2017-02-12] MEDS: FEBUXOSTAT 40 MG TABLET PO SCH (09:16)
[2017-02-12] MEDS: DOCUSATE SODIUM 100 MG CAP PO SCH ×2 (09:16→20:44)
[2017-02-12] MEDS: FAMOTIDINE 20 MG TAB PO SCH (09:16)
[2017-02-12] MEDS: FISH OIL 1,000 MG CAP PO SCH ×2 (09:16→20:44)
[2017-02-12] MEDS: NIFEdipine (XL) 30 MG TAB PO SCH ×2 (09:17→20:44)
[2017-02-12] MEDS: ISOSORBIDE MONONITRATE(SR)60 MG TAB PO SCH (09:17)
--- NOTE | 2017-02-12 10:11 | PN ---
DATE: 02/12/2017 SUBJECTIVE DATA: The patient is currently on IVIG. The patient is scheduled for hemodialysis today. No other events noted. OBJECTIVE DATA: VITAL SIGNS: Blood pressure is 176/77, temperature 98, respirations 18, pulse 82. HEENT: Head is normocephalic. NECK: Supple. HEART: Regular rate. LUNGS: Showed diminished breath sounds at the base. ABDOMEN: Soft, nontender to palpation. No rebound or guarding. EXTREMITIES: Negative for clubbing, cyanosis. No edema. DERMATOLOGIC: Clean. No rashes. MUSCULOSKELETAL: No joint effusion. NEUROLOGIC: No change in exam. MEDICATIONS: Reviewed. LABORATORY AND DIAGNOSTIC DATA: Reviewed. ASSESSMENT AND PLAN: 1. End-stage renal disease. Plan for hemodialysis today. 2. Mineral bone disorder. Monitor calcium and phosphorus levels. 3. Anemia. Monitor H and H levels. 4. Congestive heart failure. Continue ultrafiltration dialysis. Continue medical management. 5. Hypertension. Continue current blood pressure regimen. 6. Sepsis bacteremia. Continue current antibiotic regimen. 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 8. Diabetes. Continue Accu-Cheks and insulin sliding scale. Dictated By: Arvind Galindo DO /[email or web address] /Document#: [id number]
[2017-02-12] MEDS: NICOTINE (14 MG/24 HR) PATCH TRANSDERM SCH (11:26)
[2017-02-12] MEDS: CEFTRIAXONE 1 GM/50 ML (PMX) 50 ML IVPB SCH (11:27)
--- NOTE | 2017-02-12 14:01 | CONS ---
Date/Time of Note Date/Time of Note DATE: 02/12/17 TIME: 14:00 Assessment/Plan Assessment/Plan Chief Complaint/Hosp Course No acute events overnight patient is awake looks comfortable afebrile he was started on IVIG yesterday plan to give him a dose today per report, family at bedside Temperature 98.1 pulse 82 respirations 18 blood pressure 167/70 saturation 97 on room air Blood culture on admission grew Klebsiella pneumonia susceptible to all antibiotics, urine culture growing Klebsiella pneumoniae and Proteus mirabilis Abx: Rocephin Physical examination: Obese, well-developed elderly [place] man who is in no distress. Head atraumatic normocephalic sclerae nonicteric vehicle mucosa pink neck is supple chest rise symmetrical breath sounds clear heart S1-S2 abdomen soft bowel sounds present extremities without cyanosis Assessment: 1. GNR bacteremia, poss 2 to UTI 2. Viral meningitis, West Nile virus CSF IgM equivocal 3. End-stage renal disease, hemodialysis dependent 4. Diabetes. 5. Coronary artery disease and hypertension Plan: Patient remains stable, we are going to repeat blood cultures, continue present care, antibiotics follow neurology recommendations DW staff Problems: Consultation Date/Type/Reason Admit Date/Time Jan 29, 2017 at 19:38 Initial Consult Date 01/30/17 Type of Consultation: ID Exam/Review of Systems Vital Signs Vitals Vital Signs Date Time Temp Pulse Resp B/P Pulse Ox O2 Delivery O2 Flow Rate FiO2 02/12/17 13:27 79 02/12/17 12:01 98.1 18 167/70 97 02/12/17 02:26 3.0 02/11/17 20:00 Nasal Cannula Intake and Output 02/11/17 02/11/17 02/12/17 15:00 23:00 07:00 Intake Total 100 ml 1040 ml 180 ml Output Total 300 ml 700 ml Balance 100 ml 740 ml -520 ml Results Result Diagram: 02/08/17 1100 02/08/17 1100 Results 24 hrs Laboratory Tests Test 02/11/17 17:33 02/11/17 21:01 02/12/17 07:52 02/12/17 12:38 Bedside Glucose 182 164 120 113 Medications Medications Current Medications Ondansetron HCl (Zofran Inj) 4 mg Q6 PRN IV NAUSEA AND/OR VOMITING Last administered on 02/04/17t 20:49; Admin Dose 4 MG; Start 01/30/17 at 00:00 Acetaminophen (Tylenol Tab) 650 mg Q6H PRN PO PAIN AND OR ELEVATED TEMP Last administered on 02/09/17 04:46; Admin Dose 650 MG; Start 01/30/17 at 00:00 Clonidine (Catapres) 0.1 mg TID PRN PO FOR SBP >160 Last administered on 00:29; Admin Dose 0.1 MG; Start 01/30/17 at 00:00 Ergocalciferol (Drisdol) 50,000 unit Q7D PO Last administered on 02/08/17 08: 44; Admin Dose 50,000 UNIT; Start 02/01/17 at 09:00 Febuxostat (Uloric) 40 mg DAILY PO Last administered on 02/12/17 09:16; Admin Dose 40 MG; Start 01/30/17 at 09:00 Hydralazine HCl (Apresoline) 50 mg BID PO Last administered on 02/12/17 09:17 ; Admin Dose 50 MG; Start 01/30/17 at 00:00 Isosorbide Mononitrate (Imdur) 60 mg DAILY PO Last administered on 02/12/17 09 :17; Admin Dose 60 MG; Start 01/30/17 at 09:00 Prasugrel (Effient) 10 mg DAILY PO Last administered on 02/12/17 09:16; Admin Dose 10 MG; Start 01/30/17 at 09:00 Ropinirole HCl (Requip) 0.25 mg HS PO Last administered on 02/11/17 21:03; Admin Dose 0.25 MG; Start 01/30/17 at 21:00 Tamsulosin HCl (Flomax) 0.4 mg DAILY@21 PO Last administered on 02/11/17 21:03 ; Admin Dose 0.4 MG; Start 01/30/17 at 21:00 Fish Oil (Fish Oil) 1,000 mg BID PO Last administered on 02/12/17 09:16; Admin Dose 1,000 MG; Start 01/31/17 at 09:30 Atorvastatin Calcium (Lipitor) 10 mg QHS PO Last administered on 02/11/17 21: 03; Admin Dose 10 MG; Start 01/30/17 at 21:00 Multivit/Ca Carb/ B Cmplx/FA/Prenat (Paulina-Chrissy) 1 tab DAILY PO Last administered on 02/12/17 09:16; Admin Dose 1 TAB; Start 01/30/17 at 09:00 Carvedilol (Coreg) 3.125 mg BID PO Last administered on 02/12/17 09:18; Admin Dose 3.125 MG; Start 01/30/17 at 00:00 Miscellaneous Information 1 ea NOTE XX ; Start 01/30/17 at 01:00 Glucose (Glutose) 15 gm Q15M PRN PO DECREASED GLUCOSE; Start 01/30/17 at 01:00 Glucose (Glutose) 22.5 gm Q15M PRN PO DECREASED GLUCOSE; Start 01/30/17 at 01: 00 Dextrose (D50w Syringe) 25 ml Q15M PRN IV DECREASED GLUCOSE; Start 01/30/17 at 01:00 Dextrose (D50w Syringe) 50 ml Q15M PRN IV DECREASED GLUCOSE; Start 01/30/17 at 01:00 Glucagon (Glucagen) 1 mg Q15M PRN IM DECREASED GLUCOSE; Start 01/30/17 at 01:00 Glucose (Glutose) 15 gm Q15M PRN BUCCAL DECREASED GLUCOSE; Start 01/30/17 at 01 :00 Diagnostic Test (Pha) (Accu-Chek) 1 ea 02 XX Last administered on 02/12/17 02: 51; Admin Dose 1 EA; Start 01/31/17 at 02:00 Nifedipine (Procardia Xl) 30 mg BID PO Last administered on 02/12/17 09:17; Admin Dose 30 MG; Start 02/01/17 at 21:00 Nicotine (Nicoderm 14 Mg/ 24hr) 1 patch DAILY TRANSDERM Last administered on 11:26; Admin Dose 1 PATCH; Start 02/05/17 at 09:00 Famotidine (Pepcid) 20 mg DAILY PO Last administered on 02/12/17 09:16; Admin Dose 20 MG; Start 02/05/17 at 12:00 Docusate Sodium (Colace) 100 mg BID PO Last administered on 02/12/17 09:16; Admin Dose 100 MG; Start 02/07/17 at 15:00 Polyethylene Glycol (Miralax) 17 gm BID PO Last administered on 9/29/17at 09:15 ; Admin Dose 17 GM; Start 02/07/17 at 21:00 Bisacodyl (Dulcolax) 10 mg DAILY PRN PO CONSTIPATION; Start 02/07/17 at 16:30 Acetaminophen/ Hydrocodone Bitart ([place] (5/325)) 2 tab Q4H PRN PO pain; Start 02/08/17 at 14:00 Acetaminophen/ Hydrocodone Bitart ([place] (5/325)) 1 tab Q4H PRN PO pain Last administered on 02/08/17 15:00; Admin Dose 1 TAB; Start 02/08/17 at 14:00 Zolpidem Tartrate 10 mg 10 mg HS PRN PO INSOMNIA Last administered on 23:23; Admin Dose 10 MG; Start 02/10/17 at 23:30 Ceftriaxone Sodium 50 ml @ 100 mls/hr Q24H IVPB Last administered on 11:27; Admin Dose 100 MLS/HR; Start 02/11/17 at 11:30 Immune Globulin/N/ A/Sterile Water (Carimune Nf/ Evac Container/ Water Sterile For Inj) 600 ml @ 0 mls/hr DAILY@1530 IV Last administered on 02/11/17 15:59; Admin Dose 44 MLS/HR; Start 02/11/17 at 15:30; Stop 02/15/17 at 18:00 Acetaminophen (Tylenol Tab) 650 mg Q24H PO ; Start 02/12/17 at 14:30; Stop 02/15 at 14:31 Diphenhydramine HCl (Benadryl) 50 mg Q24H PO ; Start 02/12/17 at 14:30; Stop at 14:31 Hydrocortisone (Solu-Cortef) 100 mg Q24H IV ; Start 02/12/17 at 14:30; Stop 02/15/17 at 14:31 JAROD NORIEGA NP Feb 12, 2017 14:01
[2017-02-12] MEDS: HYDROCORTISONE 100 MG INJ IV SCH (14:45)
[2017-02-12] MEDS: DIPHENHYDRAMINE 50 MG CAP PO SCH (14:45)
[2017-02-12] MEDS: ACETAMINOPHEN 325 MG TAB PO SCH (14:57)
[2017-02-12] MEDS: IMMUNE GLOBULIN IV SCH (15:57)
[2017-02-12] MEDS: EVAC CONTAINER IV SCH (15:57)
[2017-02-12] MEDS: WATER STERILE FOR IV SCH (15:57)
--- NOTE | 2017-02-12 19:04 | PN ---
Date/Time of Note Date/Time of Note DATE: 02/12/17 TIME: 19:00 Assessment/Plan VTE Prophylaxis VTE Prophylaxis Intervention: SCD's Lines/Catheters IV Catheter Type (from Nrs): Saline Lock Assessment/Plan Chief Complaint/Hosp Course 1. Bilateral lower extremity weakness. Imaging of the brain is negative for any acute findings. Patient did have lumbar spine CT that did show multilevel central canal and neural foraminal stenosis. CSF analysis suggestive of viral meningitis. Continue with ID recommendations. .Plan for IVIG per neurologist 2. ESRD. Continue on dialysis per nephrology recommendations. 3. Essential hypertension. Continue antihypertensives as needed 4. Diabetes. Continue insulin regimen. Stable at present. 5. CAD. Continue Dilantin therapy. 6 dyslipidemia. on statin medication. 7. Anemia of chronic disease. Stable at present. Monitor for now. Epogen per adjuster arbitrator. 8. Bacteremia. cont with abx Prophylaxis: SCDs Disposition and plan: plan for IVIG. continue with neurologist recs Problems: Subjective 24 Hr Interval Summary Constitutional: no complaints Exam/Review of Systems Vital Signs Vitals Vital Signs Date Time Temp Pulse Resp B/P Pulse Ox O2 Delivery O2 Flow Rate FiO2 02/12/17 17:33 155/68 02/12/17 16:18 86 02/12/17 15:30 98.1 18 97 02/12/17 07:54 Nasal Cannula 2.0 Intake and Output 02/11/17 02/11/17 02/12/17 15:00 23:00 07:00 Intake Total 100 ml 1040 ml 180 ml Output Total 300 ml 700 ml Balance 100 ml 740 ml -520 ml Exam Constitutional: alert Respiratory: clear to auscultation Cardiovascular: regular rate and rhythm Gastrointestinal: soft, No distended Musculoskeletal: nl extremities to inspection Results Result Diagram: 02/08/17 1100 02/08/17 1100 Results 24 hrs Laboratory Tests Test 02/11/17 21:01 02/12/17 07:52 02/12/17 12:38 02/12/17 17:22 Bedside Glucose 164 120 113 165 Medications Medications Current Medications Ondansetron HCl (Zofran Inj) 4 mg Q6 PRN IV NAUSEA AND/OR VOMITING Last administered on 02/04/17t 20:49; Admin Dose 4 MG; Start 01/30/17 at 00:00 Acetaminophen (Tylenol Tab) 650 mg Q6H PRN PO PAIN AND OR ELEVATED TEMP Last administered on 02/09/17 04:46; Admin Dose 650 MG; Start 01/30/17 at 00:00 Clonidine (Catapres) 0.1 mg TID PRN PO FOR SBP >160 Last administered on 16:51; Admin Dose 0.1 MG; Start 01/30/17 at 00:00 Ergocalciferol (Drisdol) 50,000 unit Q7D PO Last administered on 02/08/17 08: 44; Admin Dose 50,000 UNIT; Start 02/01/17 at 09:00 Febuxostat (Uloric) 40 mg DAILY PO Last administered on 02/12/17 09:16; Admin Dose 40 MG; Start 01/30/17 at 09:00 Hydralazine HCl (Apresoline) 50 mg BID PO Last administered on 02/12/17 09:17 ; Admin Dose 50 MG; Start 01/30/17 at 00:00 Isosorbide Mononitrate (Imdur) 60 mg DAILY PO Last administered on 02/12/17 09 :17; Admin Dose 60 MG; Start 01/30/17 at 09:00 Prasugrel (Effient) 10 mg DAILY PO Last administered on 02/12/17 09:16; Admin Dose 10 MG; Start 01/30/17 at 09:00 Ropinirole HCl (Requip) 0.25 mg HS PO Last administered on 02/11/17 21:03; Admin Dose 0.25 MG; Start 01/30/17 at 21:00 Tamsulosin HCl (Flomax) 0.4 mg DAILY@21 PO Last administered on 02/11/17 21:03 ; Admin Dose 0.4 MG; Start 01/30/17 at 21:00 Fish Oil (Fish Oil) 1,000 mg BID PO Last administered on 02/12/17 09:16; Admin Dose 1,000 MG; Start 01/31/17 at 09:30 Atorvastatin Calcium (Lipitor) 10 mg QHS PO Last administered on 02/11/17 21: 03; Admin Dose 10 MG; Start 01/30/17 at 21:00 Multivit/Ca Carb/ B Cmplx/FA/Prenat (Paulina-Chrissy) 1 tab DAILY PO Last administered on 02/12/17 09:16; Admin Dose 1 TAB; Start 01/30/17 at 09:00 Carvedilol (Coreg) 3.125 mg BID PO Last administered on 02/12/17 09:18; Admin Dose 3.125 MG; Start 01/30/17 at 00:00 Miscellaneous Information 1 ea NOTE XX ; Start 01/30/17 at 01:00 Glucose (Glutose) 15 gm Q15M PRN PO DECREASED GLUCOSE; Start 01/30/17 at 01:00 Glucose (Glutose) 22.5 gm Q15M PRN PO DECREASED GLUCOSE; Start 01/30/17 at 01: 00 Dextrose (D50w Syringe) 25 ml Q15M PRN IV DECREASED GLUCOSE; Start 01/30/17 at 01:00 Dextrose (D50w Syringe) 50 ml Q15M PRN IV DECREASED GLUCOSE; Start 01/30/17 at 01:00 Glucagon (Glucagen) 1 mg Q15M PRN IM DECREASED GLUCOSE; Start 01/30/17 at 01:00 Glucose (Glutose) 15 gm Q15M PRN BUCCAL DECREASED GLUCOSE; Start 01/30/17 at 01 :00 Diagnostic Test (Pha) (Accu-Chek) 1 ea 02 XX Last administered on 02/12/17 02: 51; Admin Dose 1 EA; Start 01/31/17 at 02:00 Nifedipine (Procardia Xl) 30 mg BID PO Last administered on 02/12/17 09:17; Admin Dose 30 MG; Start 02/01/17 at 21:00 Nicotine (Nicoderm 14 Mg/ 24hr) 1 patch DAILY TRANSDERM Last administered on 11:26; Admin Dose 1 PATCH; Start 02/05/17 at 09:00 Famotidine (Pepcid) 20 mg DAILY PO Last administered on 02/12/17 09:16; Admin Dose 20 MG; Start 02/05/17 at 12:00 Docusate Sodium (Colace) 100 mg BID PO Last administered on 02/12/17 09:16; Admin Dose 100 MG; Start 02/07/17 at 15:00 Polyethylene Glycol (Miralax) 17 gm BID PO Last administered on 02/12/17 09:15 ; Admin Dose 17 GM; Start 02/07/17 at 21:00 Bisacodyl (Dulcolax) 10 mg DAILY PRN PO CONSTIPATION; Start 02/07/17 at 16:30 Acetaminophen/ Hydrocodone Bitart ([place] (5/325)) 2 tab Q4H PRN PO pain; Start 02/08/17 at 14:00 Acetaminophen/ Hydrocodone Bitart ([place] (5/325)) 1 tab Q4H PRN PO pain Last administered on 02/08/17 15:00; Admin Dose 1 TAB; Start 02/08/17 at 14:00 Zolpidem Tartrate 10 mg 10 mg HS PRN PO INSOMNIA Last administered on 23:23; Admin Dose 10 MG; Start 02/10/17 at 23:30 Ceftriaxone Sodium 50 ml @ 100 mls/hr Q24H IVPB Last administered on 11:27; Admin Dose 100 MLS/HR; Start 02/11/17 at 11:30 Immune Globulin/N/ A/Sterile Water (Carimune Nf/ Evac Container/ Water Sterile For Inj) 600 ml @ 0 mls/hr DAILY@1530 IV Last administered on 02/12/17 15:57; Admin Dose 44 MLS/HR; Start 02/11/17 at 15:30; Stop 02/15/17 at 18:00 Acetaminophen (Tylenol Tab) 650 mg Q24H PO Last administered on 02/12/17 14:57 ; Admin Dose 650 MG; Start 02/12/17 at 14:30; Stop 02/15/17 at 14:31 Diphenhydramine HCl (Benadryl) 50 mg Q24H PO Last administered on 02/12/17 14: 45; Admin Dose 50 MG; Start 02/12/17 at 14:30; Stop 02/15/17 at 14:31 Hydrocortisone (Solu-Cortef) 100 mg Q24H IV Last administered on 02/12/17 14: 45; Admin Dose 100 MG; Start 02/12/17 at 14:30; Stop 02/15/17 at 14:31 FITO WILLOUGHBY Feb 12, 2017 19:04
[2017-02-12] MEDS: ATORVASTATIN 10 MG TAB PO SCH (20:43)
[2017-02-12] MEDS: TAMSULOSIN (SR) 0.4 MG CAP PO SCH (20:43)
[2017-02-12] MEDS: ROPINIROLE 0.25 MG TAB PO SCH (20:43)
[2017-02-13] VITALS (13 sets, daily range): BP systolic 134–187; BP diastolic 63–84; PULSE 78–131; RESP 16–19
[2017-02-13] MEDS: ACCU-CHEK XX SCH (02:22)
[2017-02-13] MEDS: ACETAMINOPHEN 325 MG TAB PO PRN (06:00)
[2017-02-13] MEDS: INSULIN ASPART [NOVOLOG] 3 ML PEN SC SCH ×4 (08:00→21:00)
[2017-02-13] MEDS: SEVELAMER 800 MG TAB PO SCH ×3 (08:35→17:13)
--- NOTE | 2017-02-13 09:23 | CONS ---
Date/Time of Note Date/Time of Note DATE: 02/13/17 TIME: 09:22 Consult Date/Type/Reason Admit Date/Time Jan 29, 2017 at 19:38 Initial Consult Date 01/30/17 Type of Consultation: nephrology Subjective pt. post hd yesterday on ivig no new c/o Objective Vital Signs Date Time Temp Pulse Resp B/P Pulse Ox O2 Delivery O2 Flow Rate FiO2 02/13/17 08:25 83 02/13/17 07:49 99.0 18 151/67 95 02/13/17 00:47 3.0 02/12/17 20:00 Nasal Cannula Intake and Output 02/12/17 02/12/17 02/13/17 15:00 23:00 07:00 Intake Total 400 ml 1050 ml 200 ml Output Total 2800 ml 450 ml 750 ml Balance -2400 ml 600 ml -550 ml Exam HEENT: Head is normocephalic. NECK: Supple. HEART: Regular rate. LUNGS: Showed diminished breath sounds at the base. ABDOMEN: Soft, nontender to palpation. No rebound or guarding. EXTREMITIES: Negative for clubbing, cyanosis. No edema. DERMATOLOGIC: Clean. No rashes. MUSCULOSKELETAL: No joint effusion. NEUROLOGIC: No change in exam. Results/Medications Results 24 hrs Laboratory Tests Test 02/12/17 12:38 02/12/17 17:22 02/12/17 20:43 02/13/17 02:09 Bedside Glucose 113 165 224 H 145 Test 02/13/17 08:34 Bedside Glucose 107 Medications Current Medications Ondansetron HCl (Zofran Inj) 4 mg Q6 PRN IV NAUSEA AND/OR VOMITING Last administered on 02/04/17 20:49; Admin Dose 4 MG; Start 01/30/17 at 00:00 Acetaminophen (Tylenol Tab) 650 mg Q6H PRN PO PAIN AND OR ELEVATED TEMP Last administered on 02/13/17 06:00; Admin Dose 650 MG; Start 01/30/17 at 00:00 Clonidine (Catapres) 0.1 mg TID PRN PO FOR SBP >160 Last administered on 00:26; Admin Dose 0.1 MG; Start 01/30/17 at 00:00 Ergocalciferol (Drisdol) 50,000 unit Q7D PO Last administered on 02/08/17 08: 44; Admin Dose 50,000 UNIT; Start 02/01/17 at 09:00 Febuxostat (Uloric) 40 mg DAILY PO Last administered on 02/12/17 09:16; Admin Dose 40 MG; Start 01/30/17 at 09:00 Hydralazine HCl (Apresoline) 50 mg BID PO Last administered on 02/12/17 20:44 ; Admin Dose 50 MG; Start 01/30/17 at 00:00 Isosorbide Mononitrate (Imdur) 60 mg DAILY PO Last administered on 02/12/17 09 :17; Admin Dose 60 MG; Start 01/30/17 at 09:00 Prasugrel (Effient) 10 mg DAILY PO Last administered on 02/12/17 09:16; Admin Dose 10 MG; Start 01/30/17 at 09:00 Ropinirole HCl (Requip) 0.25 mg HS PO Last administered on 02/12/17 20:43; Admin Dose 0.25 MG; Start 01/30/17 at 21:00 Tamsulosin HCl (Flomax) 0.4 mg DAILY@21 PO Last administered on 02/12/17 20:43 ; Admin Dose 0.4 MG; Start 01/30/17 at 21:00 Fish Oil (Fish Oil) 1,000 mg BID PO Last administered on 02/12/17 20:44; Admin Dose 1,000 MG; Start 01/31/17 at 09:30 Atorvastatin Calcium (Lipitor) 10 mg QHS PO Last administered on 02/12/17 20: 43; Admin Dose 10 MG; Start 01/30/17 at 21:00 Multivit/Ca Carb/ B Cmplx/FA/Prenat (Paulina-Chrissy) 1 tab DAILY PO Last administered on 02/12/17 09:16; Admin Dose 1 TAB; Start 01/30/17 at 09:00 Carvedilol (Coreg) 3.125 mg BID PO Last administered on 02/12/17 20:45; Admin Dose 3.125 MG; Start 01/30/17 at 00:00 Miscellaneous Information 1 ea NOTE XX ; Start 01/30/17 at 01:00 Glucose (Glutose) 15 gm Q15M PRN PO DECREASED GLUCOSE; Start 01/30/17 at 01:00 Glucose (Glutose) 22.5 gm Q15M PRN PO DECREASED GLUCOSE; Start 01/30/17 at 01: 00 Dextrose (D50w Syringe) 25 ml Q15M PRN IV DECREASED GLUCOSE; Start 01/30/17 at 01:00 Dextrose (D50w Syringe) 50 ml Q15M PRN IV DECREASED GLUCOSE; Start 01/30/17 at 01:00 Glucagon (Glucagen) 1 mg Q15M PRN IM DECREASED GLUCOSE; Start 01/30/17 at 01:00 Glucose (Glutose) 15 gm Q15M PRN BUCCAL DECREASED GLUCOSE; Start 01/30/17 at 01 :00 Diagnostic Test (Pha) (Accu-Chek) 1 ea 02 XX Last administered on 02/13/17 02: 22; Admin Dose 1 EA; Start 01/31/17 at 02:00 Nifedipine (Procardia Xl) 30 mg BID PO Last administered on 02/12/17 20:44; Admin Dose 30 MG; Start 02/01/17 at 21:00 Nicotine (Nicoderm 14 Mg/ 24hr) 1 patch DAILY TRANSDERM Last administered on 11:26; Admin Dose 1 PATCH; Start 02/05/17 at 09:00 Famotidine (Pepcid) 20 mg DAILY PO Last administered on 02/12/17 09:16; Admin Dose 20 MG; Start 02/05/17 at 12:00 Docusate Sodium (Colace) 100 mg BID PO Last administered on 02/12/17 20:44; Admin Dose 100 MG; Start 02/07/17 at 15:00 Polyethylene Glycol (Miralax) 17 gm BID PO Last administered on 02/12/17 20:43 ; Admin Dose 17 GM; Start 02/07/17 at 21:00 Bisacodyl (Dulcolax) 10 mg DAILY PRN PO CONSTIPATION; Start 02/07/17 at 16:30 Acetaminophen/ Hydrocodone Bitart ([place] (5/325)) 2 tab Q4H PRN PO pain; Start 02/08/17 at 14:00 Acetaminophen/ Hydrocodone Bitart ([place] (5/325)) 1 tab Q4H PRN PO pain Last administered on 02/08/17 15:00; Admin Dose 1 TAB; Start 9/25/17 at 14:00 Zolpidem Tartrate 10 mg 10 mg HS PRN PO INSOMNIA Last administered on 23:23; Admin Dose 10 MG; Start 02/10/17 at 23:30 Ceftriaxone Sodium 50 ml @ 100 mls/hr Q24H IVPB Last administered on 11:27; Admin Dose 100 MLS/HR; Start 02/11/17 at 11:30 Immune Globulin/N/ A/Sterile Water (Carimune Nf/ Evac Container/ Water Sterile For Inj) 600 ml @ 0 mls/hr DAILY@1530 IV Last administered on 02/12/17 15:57; Admin Dose 44 MLS/HR; Start 02/11/17 at 15:30; Stop 02/15/17 at 18:00 Acetaminophen (Tylenol Tab) 650 mg Q24H PO Last administered on 02/12/17 14:57 ; Admin Dose 650 MG; Start 02/12/17 at 14:30; Stop 02/15/17 at 14:31 Diphenhydramine HCl (Benadryl) 50 mg Q24H PO Last administered on 02/12/17 14: 45; Admin Dose 50 MG; Start 02/12/17 at 14:30; Stop 02/15/17 at 14:31 Hydrocortisone (Solu-Cortef) 100 mg Q24H IV Last administered on 02/12/17 14: 45; Admin Dose 100 MG; Start 02/12/17 at 14:30; Stop 02/15/17 at 14:31 Assessment/Plan Chief Complaint/Hosp Course 1. End-stage renal disease. Plan for hemodialysis wednesday 2. Mineral bone disorder. Monitor calcium and phosphorus levels. 3. Anemia. Monitor H and H levels. 4. Congestive heart failure. Continue ultrafiltration dialysis. Continue medical management. 5. Hypertension. Continue current blood pressure regimen. 6. Sepsis bacteremia. Continue current antibiotic regimen. 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 8. Diabetes. Continue Accu-Cheks and insulin sliding scale. Problems: KANDICE RAYA MD Feb 13, 2017 09:23
[2017-02-13] MEDS: FISH OIL 1,000 MG CAP PO SCH ×2 (09:24→20:52)
[2017-02-13] MEDS: PRASUGREL HYDROCHLORIDE 10 MG TABLET PO SCH (09:24)
[2017-02-13] MEDS: FEBUXOSTAT 40 MG TABLET PO SCH (09:24)
[2017-02-13] MEDS: MULTIVIT/CA CARB/B CMPLX/FA TAB PO SCH (09:24)
[2017-02-13] MEDS: DOCUSATE SODIUM 100 MG CAP PO SCH ×2 (09:24→20:52)
[2017-02-13] MEDS: FAMOTIDINE 20 MG TAB PO SCH (09:24)
[2017-02-13] MEDS: NICOTINE (14 MG/24 HR) PATCH TRANSDERM SCH (09:25)
[2017-02-13] MEDS: NIFEdipine (XL) 30 MG TAB PO SCH (09:25)
[2017-02-13] MEDS: POLYETHYLENE GLYCOL 17 GM PACKET PO SCH ×2 (09:26→21:00)
[2017-02-13] MEDS: ISOSORBIDE MONONITRATE(SR)60 MG TAB PO SCH (09:26)
--- NOTE | 2017-02-13 11:49 | PN ---
Date/Time of Note Date/Time of Note DATE: 02/13/17 TIME: 11:45 Assessment/Plan VTE Prophylaxis VTE Prophylaxis Intervention: heparin Lines/Catheters IV Catheter Type (from Nrs): Saline Lock Urinary Cath still in place: Yes Reason Cath still needed: other (indicate) (monitor I&O) Assessment/Plan Chief Complaint/Hosp Course Assessment and plan 1. Bilateral lower extremity weakness. Imaging of the brain is negative for any acute findings. Patient did have lumbar spine CT that did show multilevel central canal and neural foraminal stenosis. CSF analysis suggestive of viral meningitis. Continue with ID recommendations. IVIG per neurologist 2. ESRD. Continue on dialysis per nephrology recommendations. 3. Essential hypertension. Continue antihypertensives as needed 4. Diabetes. Continue insulin regimen. Stable at present. 5. CAD. Continue Dilantin therapy. 6 dyslipidemia. on statin medication. 7. Anemia of chronic disease. Stable at present. Monitor for now. 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 8. Bacteremia. cont with abx Disposition and plan: IVIG per neurologist. Continue with physical therapy. Anticipate discharge to either [facility] or acute rehab once medically stable. Discussed plan of care wireema Munguia Problems: Subjective 24 Hr Interval Summary Free Text/Dictation Resting at this time. No apparent distress at this time. Comfortable at present Exam/Review of Systems Vital Signs Vitals Vital Signs Date Time Temp Pulse Resp B/P Pulse Ox O2 Delivery O2 Flow Rate FiO2 02/13/17 09:35 Nasal Cannula 2.0 02/13/17 08:25 83 02/13/17 07:49 99.0 18 151/67 95 Intake and Output 02/12/17 02/12/17 02/13/17 15:00 23:00 07:00 Intake Total 400 ml 1050 ml 200 ml Output Total 2800 ml 450 ml 750 ml Balance -2400 ml 600 ml -550 ml Exam Constitutional: alert Respiratory: clear to auscultation Cardiovascular: regular rate and rhythm Gastrointestinal: soft, No distended Musculoskeletal: no normal gait, no swelling Results Results 24 hrs Laboratory Tests Test 02/12/17 12:38 02/12/17 17:22 02/12/17 20:43 02/13/17 02:09 Bedside Glucose 113 165 224 H 145 Test 02/13/17 08:34 Bedside Glucose 107 Medications Medications Current Medications Ondansetron HCl (Zofran Inj) 4 mg Q6 PRN IV NAUSEA AND/OR VOMITING Last administered on 02/04/17 20:49; Admin Dose 4 MG; Start 01/30/17 at 00:00 Acetaminophen (Tylenol Tab) 650 mg Q6H PRN PO PAIN AND OR ELEVATED TEMP Last administered on 02/13/17 06:00; Admin Dose 650 MG; Start 01/30/17 at 00:00 Clonidine (Catapres) 0.1 mg TID PRN PO FOR SBP >160 Last administered on 00:26; Admin Dose 0.1 MG; Start 01/30/17 at 00:00 Ergocalciferol (Drisdol) 50,000 unit Q7D PO Last administered on 02/08/17 08: 44; Admin Dose 50,000 UNIT; Start 02/01/17 at 09:00 Febuxostat (Uloric) 40 mg DAILY PO Last administered on 02/13/17 09:24; Admin Dose 40 MG; Start 01/30/17 at 09:00 Hydralazine HCl (Apresoline) 50 mg BID PO Last administered on 02/13/17 09:26 ; Admin Dose 50 MG; Start 01/30/17 at 00:00 Isosorbide Mononitrate (Imdur) 60 mg DAILY PO Last administered on 02/13/17 09 :26; Admin Dose 60 MG; Start 01/30/17 at 09:00 Prasugrel (Effient) 10 mg DAILY PO Last administered on 02/13/17 09:24; Admin Dose 10 MG; Start 01/30/17 at 09:00 Ropinirole HCl (Requip) 0.25 mg HS PO Last administered on 02/12/17 20:43; Admin Dose 0.25 MG; Start 01/30/17 at 21:00 Tamsulosin HCl (Flomax) 0.4 mg DAILY@21 PO Last administered on 02/12/17 20:43 ; Admin Dose 0.4 MG; Start 01/30/17 at 21:00 Fish Oil (Fish Oil) 1,000 mg BID PO Last administered on 02/13/17 09:24; Admin Dose 1,000 MG; Start 01/31/17 at 09:30 Atorvastatin Calcium (Lipitor) 10 mg QHS PO Last administered on 02/12/17 20: 43; Admin Dose 10 MG; Start 01/30/17 at 21:00 Multivit/Ca Carb/ B Cmplx/FA/Prenat (Paulina-Chrissy) 1 tab DAILY PO Last administered on 02/13/17 09:24; Admin Dose 1 TAB; Start 01/30/17 at 09:00 Carvedilol (Coreg) 3.125 mg BID PO Last administered on 02/13/17 09:26; Admin Dose 3.125 MG; Start 01/30/17 at 00:00 Miscellaneous Information 1 ea NOTE XX ; Start 01/30/17 at 01:00 Glucose (Glutose) 15 gm Q15M PRN PO DECREASED GLUCOSE; Start 01/30/17 at 01:00 Glucose (Glutose) 22.5 gm Q15M PRN PO DECREASED GLUCOSE; Start 01/30/17 at 01: 00 Dextrose (D50w Syringe) 25 ml Q15M PRN IV DECREASED GLUCOSE; Start 01/30/17 at 01:00 Dextrose (D50w Syringe) 50 ml Q15M PRN IV DECREASED GLUCOSE; Start 01/30/17 at 01:00 Glucagon (Glucagen) 1 mg Q15M PRN IM DECREASED GLUCOSE; Start 01/30/17 at 01:00 Glucose (Glutose) 15 gm Q15M PRN BUCCAL DECREASED GLUCOSE; Start 01/30/17 at 01 :00 Diagnostic Test (Pha) (Accu-Chek) 1 ea 02 XX Last administered on 02/13/17 02: 22; Admin Dose 1 EA; Start 01/31/17 at 02:00 Nifedipine (Procardia Xl) 30 mg BID PO Last administered on 02/13/17 09:25; Admin Dose 30 MG; Start 02/01/17 at 21:00 Nicotine (Nicoderm 14 Mg/ 24hr) 1 patch DAILY TRANSDERM Last administered on 09:25; Admin Dose 1 PATCH; Start 02/05/17 at 09:00 Famotidine (Pepcid) 20 mg DAILY PO Last administered on 02/13/17 09:24; Admin Dose 20 MG; Start 02/05/17 at 12:00 Docusate Sodium (Colace) 100 mg BID PO Last administered on 02/13/17 09:24; Admin Dose 100 MG; Start 02/07/17 at 15:00 Polyethylene Glycol (Miralax) 17 gm BID PO Last administered on 02/13/17 09:26 ; Admin Dose 17 GM; Start 02/07/17 at 21:00 Bisacodyl (Dulcolax) 10 mg DAILY PRN PO CONSTIPATION; Start 02/07/17 at 16:30 Acetaminophen/ Hydrocodone Bitart ([place] (5/325)) 2 tab Q4H PRN PO pain; Start 02/08/17 at 14:00 Acetaminophen/ Hydrocodone Bitart ([place] (5/325)) 1 tab Q4H PRN PO pain Last administered on 02/08/17 15:00; Admin Dose 1 TAB; Start 02/08/17 at 14:00 Zolpidem Tartrate 10 mg 10 mg HS PRN PO INSOMNIA Last administered on 23:23; Admin Dose 10 MG; Start 02/10/17 at 23:30 Ceftriaxone Sodium 50 ml @ 100 mls/hr Q24H IVPB Last administered on 11:27; Admin Dose 100 MLS/HR; Start 02/11/17 at 11:30 Immune Globulin/N/ A/Sterile Water (Carimune Nf/ Evac Container/ Water Sterile For Inj) 600 ml @ 0 mls/hr DAILY@1530 IV Last administered on 02/12/17 15:57; Admin Dose 44 MLS/HR; Start 02/11/17 at 15:30; Stop 02/15/17 at 18:00 Acetaminophen (Tylenol Tab) 650 mg Q24H PO Last administered on 02/12/17 14:57 ; Admin Dose 650 MG; Start 02/12/17 at 14:30; Stop 02/15/17 at 14:31 Diphenhydramine HCl (Benadryl) 50 mg Q24H PO Last administered on 02/12/17 14: 45; Admin Dose 50 MG; Start 02/12/17 at 14:30; Stop 02/15/17 at 14:31 Hydrocortisone (Solu-Cortef) 100 mg Q24H IV Last administered on 02/12/17 14: 45; Admin Dose 100 MG; Start 02/12/17 at 14:30; Stop 02/15/17 at 14:31 JANES RAINES Feb 13, 2017 11:49
[2017-02-13 12:01] LABS: ABNORMAL IP MESSAGE 1; BASOPHILS % 0.2 % (0.0-2.0); EOSINOPHILS % 0.2 % (0.0-7.0); HEMATOCRIT 33.6 % (42.0-52.0); HEMOGLOBIN 10.6 g/dl (14.0-18.0); LYMPHOCYTES # 0.3 10^3/ul (0.8-2.9); LYMPHOCYTES % 3.5 % (15.0-51.0); MEAN CORPUSCULAR HEMOGLOBIN 32.6 pg (29.0-33.0); MEAN CORPUSCULAR HGB CONC 31.5 g/dl (32.0-37.0); MEAN CORPUSCULAR VOLUME 103.4 fl (82.0-101.0); MEAN PLATELET VOLUME 11.4 fl (7.4-10.4); MONOCYTE # 0.7 10^3/ul (0.3-0.9); MONOCYTES % 6.9 % (0.0-11.0); NEUTROPHIL # 8.3 10^3/ul (1.6-7.5); PLATELET COUNT 80 10^3/UL (140-415); POSITIVE DIFF @See below; RED BLOOD COUNT 3.25 10^6/ul (4.70-6.10); RED CELL DISTRIBUTION WIDTH 14.2 % (11.5-14.5); WHITE BLOOD COUNT 9.5 10^3/ul (4.8-10.8)
[2017-02-13] MEDS: CEFTRIAXONE 1 GM/50 ML (PMX) 50 ML IVPB SCH (12:17)
[2017-02-13 12:31] LABS: CALCIUM 8.2 mg/dl (8.4-10.2); CREATININE 6.26 mg/dl (0.61-1.24); POTASSIUM 4.3 mmol/L (3.5-5.1)
[2017-02-13] MEDS: DIPHENHYDRAMINE 50 MG CAP PO SCH (15:12)
[2017-02-13] MEDS: ACETAMINOPHEN 325 MG TAB PO SCH (15:13)
[2017-02-13] MEDS: HYDROCORTISONE 100 MG INJ IV SCH (15:13)
--- NOTE | 2017-02-13 15:31 | CONS ---
Date/Time of Note Date/Time of Note DATE: 02/13/17 TIME: 15:30 Assessment/Plan Assessment/Plan Chief Complaint/Hosp Course ID PROGRESS NOTE TOTAL ABX DAY # 5 CURRENT ABX=> Ceftriaxone + IVIG + Steroids 24H INTERVAL SUMMARY * NO fever, WBC normalized, feeling better == sleeps and eats per spouse GENERAL: VSS, NAD HEENT: Unremarkable NECK: Trach midline, full ROM CHEST: Rise symmetrical without dyspnea on observation ABDOMEN: Soft, EXTREMITIES: Warm,(+) moves extremities SKIN: No diaphoresis, no rash ID ASSESSMENT: 81 yo M admit with: 1. GNR bacteremia 02/07 K.PNEUMONIAE SSP PNEUMONIAE => Sepsis 06/18 GNR UTI on 02/09 : * URINE CULTURE Final Organism 1 K.PNEUMONIAE SSP PNEUMONIAE COLONY COUNT >100,000 CFU/ml Organism 2 PROTEUS MIRABILIS COLONY COUNT >100,000 CFU/ml K PNE SPP P. MIRAB M.I.C. RX M.I.C. RX --------- --- --------- --- AMPICILLIN >=32 R CEFAZOLIN S CEFOTAXIME S S CIPROFLOXACIN <=0.25 S <=0.25 S GENTAMICIN <=1 S <=1 S LEVOFLOXACIN <=0.12 S <=0.12 S NITROFURANTOIN 64 I 128 R TOBRAMYCIN <=1 S <=1 S TRIMETHOPRIM/SULFAMETHOXAZOLE <=20 S <=20 S 2. Viral meningitis, West Nile virus CSF IgM equivocal 3. End-stage renal disease, hemodialysis dependent 4. Diabetes. 5. Coronary artery disease and hypertension INVASIVES: ABX ALLERGY: None to ABX TOTAL ABX DAY # 5 CURRENT ABX=> Ceftriaxone + IVIG + Steroids ID PLAN 1. He needs 14 days total Ceftriaxone to cover concern for GNR septicemia on BCx 02/09 -> Repeat BCx (-) 2. Continue supportive care for WNV encephalitis . . Problems: Consultation Date/Type/Reason Admit Date/Time Jan 29, 2017 at 19:38 Initial Consult Date 01/30/17 Type of Consultation: ID Exam/Review of Systems Vital Signs Vitals Vital Signs Date Time Temp Pulse Resp B/P Pulse Ox O2 Delivery O2 Flow Rate FiO2 02/13/17 13:17 80 02/13/17 11:54 99.7 18 134/64 96 02/13/17 09:35 Nasal Cannula 2.0 Intake and Output 02/12/17 02/12/17 02/13/17 15:00 23:00 07:00 Intake Total 400 ml 1050 ml 200 ml Output Total 2800 ml 450 ml 750 ml Balance -2400 ml 600 ml -550 ml Results Result Diagram: 02/13/17 1138 02/13/17 1138 Results 24 hrs Laboratory Tests Test 02/12/17 17:22 02/12/17 20:43 02/13/17 02:09 02/13/17 08:34 Bedside Glucose 165 224 H 145 107 Test 02/13/17 11:38 02/13/17 12:16 White Blood Count 9.5 # Red Blood Count 3.25 L Hemoglobin 10.6 L Hematocrit 33.6 L Mean Corpuscular Volume 103.4 H Mean Corpuscular Hemoglobin 32.6 Mean Corpuscular Hemoglobin Concent 31.5 L Red Cell Distribution Width 14.2 Platelet Count 80 #L Mean Platelet Volume 11.4 H Neutrophils % 87.0 H Lymphocytes % 3.5 L Monocytes % 6.9 Eosinophils % 0.2 Basophils % 0.2 Nucleated Red Blood Cells % 0.0 Neutrophils # 8.3 H Lymphocytes # 0.3 L Monocytes # 0.7 Eosinophils # 0.0 Basophils # 0.0 Nucleated Red Blood Cells # 0.0 Sodium Level 132 L Potassium Level 4.3 Chloride Level 100 Carbon Dioxide Level 24 Anion Gap 12 Blood Urea Nitrogen 84 H Creatinine 6.26 H Glucose Level 153 Calcium Level 8.2 L Bedside Glucose 148 Medications Medications Current Medications Ondansetron HCl (Zofran Inj) 4 mg Q6 PRN IV NAUSEA AND/OR VOMITING Last administered on 02/04/17 20:49; Admin Dose 4 MG; Start 01/30/17 at 00:00 Acetaminophen (Tylenol Tab) 650 mg Q6H PRN PO PAIN AND OR ELEVATED TEMP Last administered on 02/13/17 06:00; Admin Dose 650 MG; Start 01/30/17 at 00:00 Clonidine (Catapres) 0.1 mg TID PRN PO FOR SBP >160 Last administered on 00:26; Admin Dose 0.1 MG; Start 01/30/17 at 00:00 Ergocalciferol (Drisdol) 50,000 unit Q7D PO Last administered on 02/08/17 08: 44; Admin Dose 50,000 UNIT; Start 02/01/17 at 09:00 Febuxostat (Uloric) 40 mg DAILY PO Last administered on 02/13/17 09:24; Admin Dose 40 MG; Start 01/30/17 at 09:00 Hydralazine HCl (Apresoline) 50 mg BID PO Last administered on 02/13/17 09:26 ; Admin Dose 50 MG; Start 01/30/17 at 00:00 Isosorbide Mononitrate (Imdur) 60 mg DAILY PO Last administered on 02/13/17 09 :26; Admin Dose 60 MG; Start 01/30/17 at 09:00 Prasugrel (Effient) 10 mg DAILY PO Last administered on 02/13/17 09:24; Admin Dose 10 MG; Start 01/30/17 at 09:00 Ropinirole HCl (Requip) 0.25 mg HS PO Last administered on 02/12/17 20:43; Admin Dose 0.25 MG; Start 01/30/17 at 21:00 Tamsulosin HCl (Flomax) 0.4 mg DAILY@21 PO Last administered on 02/12/17 20:43 ; Admin Dose 0.4 MG; Start 01/30/17 at 21:00 Fish Oil (Fish Oil) 1,000 mg BID PO Last administered on 02/13/17 09:24; Admin Dose 1,000 MG; Start 01/31/17 at 09:30 Atorvastatin Calcium (Lipitor) 10 mg QHS PO Last administered on 02/12/17 20: 43; Admin Dose 10 MG; Start 01/30/17 at 21:00 Multivit/Ca Carb/ B Cmplx/FA/Prenat (Paulina-Chrissy) 1 tab DAILY PO Last administered on 02/13/17 09:24; Admin Dose 1 TAB; Start 01/30/17 at 09:00 Carvedilol (Coreg) 3.125 mg BID PO Last administered on 02/13/17 09:26; Admin Dose 3.125 MG; Start 01/30/17 at 00:00 Miscellaneous Information 1 ea NOTE XX ; Start 01/30/17 at 01:00 Glucose (Glutose) 15 gm Q15M PRN PO DECREASED GLUCOSE; Start 01/30/17 at 01:00 Glucose (Glutose) 22.5 gm Q15M PRN PO DECREASED GLUCOSE; Start 01/30/17 at 01: 00 Dextrose (D50w Syringe) 25 ml Q15M PRN IV DECREASED GLUCOSE; Start 01/30/17 at 01:00 Dextrose (D50w Syringe) 50 ml Q15M PRN IV DECREASED GLUCOSE; Start 01/30/17 at 01:00 Glucagon (Glucagen) 1 mg Q15M PRN IM DECREASED GLUCOSE; Start 01/30/17 at 01:00 Glucose (Glutose) 15 gm Q15M PRN BUCCAL DECREASED GLUCOSE; Start 01/30/17 at 01 :00 Diagnostic Test (Pha) (Accu-Chek) 1 ea 02 XX Last administered on 02/13/17 02: 22; Admin Dose 1 EA; Start 01/31/17 at 02:00 Nifedipine (Procardia Xl) 30 mg BID PO Last administered on 02/13/17 09:25; Admin Dose 30 MG; Start 02/01/17 at 21:00 Nicotine (Nicoderm 14 Mg/ 24hr) 1 patch DAILY TRANSDERM Last administered on 09:25; Admin Dose 1 PATCH; Start 02/05/17 at 09:00 Famotidine (Pepcid) 20 mg DAILY PO Last administered on 02/13/17 09:24; Admin Dose 20 MG; Start 02/05/17 at 12:00 Docusate Sodium (Colace) 100 mg BID PO Last administered on 02/13/17 09:24; Admin Dose 100 MG; Start 02/07/17 at 15:00 Polyethylene Glycol (Miralax) 17 gm BID PO Last administered on 02/13/17 09:26 ; Admin Dose 17 GM; Start 02/07/17 at 21:00 Bisacodyl (Dulcolax) 10 mg DAILY PRN PO CONSTIPATION; Start 02/07/17 at 16:30 Acetaminophen/ Hydrocodone Bitart ([place] (5/325)) 2 tab Q4H PRN PO pain; Start 02/08/17 at 14:00 Acetaminophen/ Hydrocodone Bitart ([place] (5/325)) 1 tab Q4H PRN PO pain Last administered on 02/08/17 15:00; Admin Dose 1 TAB; Start 02/08/17 at 14:00 Zolpidem Tartrate 10 mg 10 mg HS PRN PO INSOMNIA Last administered on 23:23; Admin Dose 10 MG; Start 02/10/17 at 23:30 Ceftriaxone Sodium 50 ml @ 100 mls/hr Q24H IVPB Last administered on 12:17; Admin Dose 100 MLS/HR; Start 02/11/17 at 11:30 Immune Globulin/N/ A/Sterile Water (Carimune Nf/ Evac Container/ Water Sterile For Inj) 600 ml @ 0 mls/hr DAILY@1530 IV Last administered on 02/12/17 15:57; Admin Dose 44 MLS/HR; Start 02/11/17 at 15:30; Stop 02/15/17 at 18:00 Acetaminophen (Tylenol Tab) 650 mg Q24H PO Last administered on 02/13/17 15:13 ; Admin Dose 650 MG; Start 02/12/17 at 14:30; Stop 02/15/17 at 14:31 Diphenhydramine HCl (Benadryl) 50 mg Q24H PO Last administered on 02/13/17 15: 12; Admin Dose 50 MG; Start 02/12/17 at 14:30; Stop 02/15/17 at 14:31 Hydrocortisone (Solu-Cortef) 100 mg Q24H IV Last administered on 02/13/17 15: 13; Admin Dose 100 MG; Start 02/12/17 at 14:30; Stop 02/15/17 at 14:31 Heparin Sodium (Porcine) (Heparin (5000 Units/0.5 ml)) 5,000 unit BID SC ; Start 02/13/17 at 21:00 AMAYA WHITAKER NP Feb 13, 2017 15:30
[2017-02-13] MEDS: WATER STERILE FOR IV SCH (15:51)
[2017-02-13] MEDS: IMMUNE GLOBULIN IV SCH (15:51)
[2017-02-13] MEDS: EVAC CONTAINER IV SCH (15:51)
--- NOTE | 2017-02-13 19:18 | HKNOTE ---
DATE OF SERVICE: HISTORY OF PRESENT ILLNESS: The patient is [id number] who was admitted to [facility] after he suffered gait difficulty, lower limb weakness, unable to ambulate. Patient with end-stage renal disease on hemodialysis, diabetes, coronary artery disease. The patient had a lumbar puncture and it shows white cell count 45, RBCs 0, glucose 107, protein 66. Multiple lumbar spondylosis with multiple level foraminal narrowing. CURRENT MEDICATIONS: Include: 1. Tylenol 650 mg. 2. Benadryl 50 mg. 3. Solu-Medrol 100 mg every 24 hours. 4. Immunoglobulin IVIG once a day. 5. Ceftriaxone. 6. Ambien 10 mg once a day. 7. [place] 325 mg 2 tablets every 4 hours as needed. 8. Dulcolax 10 mg once a day. 9. Folate 100 mg twice a day. 10. Pepcid 20 mg once a day. 11. Procardia XL 30 mg once a day. 12. Fish oil as needed. PHYSICAL EXAMINATION: GENERAL: The patient is alert, awake, and oriented, following simple commands. Having difficulty following 2nd and 3rd step commands. Accompanied by his in the room. FINISHING TECHNICIAN: . Coordination [id number] is intact. Motor decreased bilaterally hip flexion. ASSESSMENT AND PLAN: 1. The patient is [id number] with bilateral lower extremity weakness. We will followup the patient with physical therapy for evaluation of his gait, balance and motor activity. 2. Underlying diabetic amyotrophy. We will followup the patient with nerve conduction study and EMG when he is stable. 3. Underlying inflammatory neuropathy. We will place the patient on IVIG. We will continue for the course of 5 days and see how the patient responds for that. 4. Underlying end-stage renal disease for which the patient is on dialysis, which is worsening his neuropathy. 5. Increased white cell count in his cerebrospinal fluid with suspected viral meningitis. Followed by infectious disease. Dictated By: Best Cagle MD /waldo/radha /Document#: [id number]
[2017-02-13] MEDS: TAMSULOSIN (SR) 0.4 MG CAP PO SCH (20:52)
[2017-02-13] MEDS: ROPINIROLE 0.25 MG TAB PO SCH (20:52)
[2017-02-13] MEDS: ATORVASTATIN 10 MG TAB PO SCH (20:53)
[2017-02-13] MEDS: HEPARIN 5,000 UNIT/0.5 ML VIAL SC SCH (21:02)
[2017-02-14] VITALS (9 sets, daily range): BP systolic 131–180; BP diastolic 61–75; PULSE 70–112; RESP 18–20
[2017-02-14] MEDS: NIFEdipine (XL) 30 MG TAB PO SCH ×3 (00:01→20:11)
[2017-02-14] MEDS: HYDROCODONE/APAP (5/325) TAB PO PRN (00:02)
[2017-02-14] MEDS: ACCU-CHEK XX SCH (02:00)
[2017-02-14] MEDS: INSULIN ASPART [NOVOLOG] 3 ML PEN SC SCH ×4 (08:00→21:09)
[2017-02-14] MEDS: MULTIVIT/CA CARB/B CMPLX/FA TAB PO SCH (09:27)
[2017-02-14] MEDS: SEVELAMER 800 MG TAB PO SCH ×3 (09:27→18:02)
[2017-02-14] MEDS: PRASUGREL HYDROCHLORIDE 10 MG TABLET PO SCH (09:28)
[2017-02-14] MEDS: FAMOTIDINE 20 MG TAB PO SCH (09:28)
[2017-02-14] MEDS: FEBUXOSTAT 40 MG TABLET PO SCH (09:28)
[2017-02-14] MEDS: FISH OIL 1,000 MG CAP PO SCH ×2 (09:28→20:10)
[2017-02-14] MEDS: DOCUSATE SODIUM 100 MG CAP PO SCH ×2 (09:28→20:11)
[2017-02-14] MEDS: ISOSORBIDE MONONITRATE(SR)60 MG TAB PO SCH (09:29)
[2017-02-14] MEDS: NICOTINE (14 MG/24 HR) PATCH TRANSDERM SCH (09:30)
[2017-02-14] MEDS: POLYETHYLENE GLYCOL 17 GM PACKET PO SCH ×2 (09:30→20:16)
[2017-02-14] MEDS: HEPARIN 5,000 UNIT/0.5 ML VIAL SC SCH ×2 (09:31→20:15)
--- NOTE | 2017-02-14 09:34 | CONS ---
Date/Time of Note Date/Time of Note DATE: 02/14/17 TIME: 09:33 Consult Date/Type/Reason Admit Date/Time Jan 29, 2017 at 19:38 Initial Consult Date 01/30/17 Type of Consultation: ID Subjective pt. seen and examined on ivig neuro eval noted. Objective Vital Signs Date Time Temp Pulse Resp B/P Pulse Ox O2 Delivery O2 Flow Rate FiO2 02/14/17 07:47 98.1 67 20 147/67 98 02/14/17 06:27 3.0 02/13/17 20:00 Nasal Cannula Intake and Output 02/13/17 02/13/17 02/14/17 15:00 23:00 07:00 Intake Total 650 ml 900 ml Output Total 200 ml 500 ml Balance 450 ml 400 ml Exam HEENT: Head is normocephalic. NECK: Supple. HEART: Regular rate. LUNGS: Showed diminished breath sounds at the base. ABDOMEN: Soft, nontender to palpation. No rebound or guarding. EXTREMITIES: Negative for clubbing, cyanosis. No edema. DERMATOLOGIC: Clean. No rashes. MUSCULOSKELETAL: No joint effusion. NEUROLOGIC: No change in exam. Results/Medications Result Diagram: 02/13/17 1138 02/13/17 1138 Results 24 hrs Laboratory Tests Test 02/13/17 11:38 02/13/17 12:16 02/13/17 17:09 02/13/17 21:00 White Blood Count 9.5 # Red Blood Count 3.25 L Hemoglobin 10.6 L Hematocrit 33.6 L Mean Corpuscular Volume 103.4 H Mean Corpuscular Hemoglobin 32.6 Mean Corpuscular Hemoglobin Concent 31.5 L Red Cell Distribution Width 14.2 Platelet Count 80 #L Mean Platelet Volume 11.4 H Neutrophils % 87.0 H Lymphocytes % 3.5 L Monocytes % 6.9 Eosinophils % 0.2 Basophils % 0.2 Nucleated Red Blood Cells % 0.0 Neutrophils # 8.3 H Lymphocytes # 0.3 L Monocytes # 0.7 Eosinophils # 0.0 Basophils # 0.0 Nucleated Red Blood Cells # 0.0 Sodium Level 132 L Potassium Level 4.3 Chloride Level 100 Carbon Dioxide Level 24 Anion Gap 12 Blood Urea Nitrogen 84 H Creatinine 6.26 H Glucose Level 153 Calcium Level 8.2 L Bedside Glucose 148 175 172 Test 02/14/17 08:13 Bedside Glucose 81 Medications Current Medications Ondansetron HCl (Zofran Inj) 4 mg Q6 PRN IV NAUSEA AND/OR VOMITING Last administered on 02/04/17 20:49; Admin Dose 4 MG; Start 01/30/17 at 00:00 Acetaminophen (Tylenol Tab) 650 mg Q6H PRN PO PAIN AND OR ELEVATED TEMP Last administered on 02/13/17 06:00; Admin Dose 650 MG; Start 01/30/17 at 00:00 Clonidine (Catapres) 0.1 mg TID PRN PO FOR SBP >160 Last administered on 00:42; Admin Dose 0.1 MG; Start 01/30/17 at 00:00 Ergocalciferol (Drisdol) 50,000 unit Q7D PO Last administered on 02/08/17 08: 44; Admin Dose 50,000 UNIT; Start 02/01/17 at 09:00 Febuxostat (Uloric) 40 mg DAILY PO Last administered on 02/14/17 09:28; Admin Dose 40 MG; Start 01/30/17 at 09:00 Hydralazine HCl (Apresoline) 50 mg BID PO Last administered on 02/14/17 09:28 ; Admin Dose 50 MG; Start 01/30/17 at 00:00 Isosorbide Mononitrate (Imdur) 60 mg DAILY PO Last administered on 02/14/17 09 :29; Admin Dose 60 MG; Start 01/30/17 at 09:00 Prasugrel (Effient) 10 mg DAILY PO Last administered on 02/14/17 09:28; Admin Dose 10 MG; Start 01/30/17 at 09:00 Ropinirole HCl (Requip) 0.25 mg HS PO Last administered on 02/13/17 20:52; Admin Dose 0.25 MG; Start 01/30/17 at 21:00 Tamsulosin HCl (Flomax) 0.4 mg DAILY@21 PO Last administered on 02/13/17 20:52 ; Admin Dose 0.4 MG; Start 01/30/17 at 21:00 Fish Oil (Fish Oil) 1,000 mg BID PO Last administered on 02/14/17 09:28; Admin Dose 1,000 MG; Start 01/31/17 at 09:30 Atorvastatin Calcium (Lipitor) 10 mg QHS PO Last administered on 02/13/17 20: 53; Admin Dose 10 MG; Start 01/30/17 at 21:00 Multivit/Ca Carb/ B Cmplx/FA/Prenat (Paulina-Chrissy) 1 tab DAILY PO Last administered on 02/14/17 09:27; Admin Dose 1 TAB; Start 01/30/17 at 09:00 Carvedilol (Coreg) 3.125 mg BID PO Last administered on 02/14/17 09:29; Admin Dose 3.125 MG; Start 01/30/17 at 00:00 Miscellaneous Information 1 ea NOTE XX ; Start 01/30/17 at 01:00 Glucose (Glutose) 15 gm Q15M PRN PO DECREASED GLUCOSE; Start 01/30/17 at 01:00 Glucose (Glutose) 22.5 gm Q15M PRN PO DECREASED GLUCOSE; Start 01/30/17 at 01: 00 Dextrose (D50w Syringe) 25 ml Q15M PRN IV DECREASED GLUCOSE; Start 01/30/17 at 01:00 Dextrose (D50w Syringe) 50 ml Q15M PRN IV DECREASED GLUCOSE; Start 01/30/17 at 01:00 Glucagon (Glucagen) 1 mg Q15M PRN IM DECREASED GLUCOSE; Start 01/30/17 at 01:00 Glucose (Glutose) 15 gm Q15M PRN BUCCAL DECREASED GLUCOSE; Start 01/30/17 at 01 :00 Diagnostic Test (Pha) (Accu-Chek) 1 ea 02 XX Last administered on 02/14/17 02: 00; Admin Dose 1 EA; Start 01/31/17 at 02:00 Nifedipine (Procardia Xl) 30 mg BID PO Last administered on 02/14/17 09:28; Admin Dose 30 MG; Start 02/01/17 at 21:00 Nicotine (Nicoderm 14 Mg/ 24hr) 1 patch DAILY TRANSDERM Last administered on 09:30; Admin Dose 1 PATCH; Start 02/05/17 at 09:00 Famotidine (Pepcid) 20 mg DAILY PO Last administered on 02/14/17 09:28; Admin Dose 20 MG; Start 02/05/17 at 12:00 Docusate Sodium (Colace) 100 mg BID PO Last administered on 02/14/17 09:28; Admin Dose 100 MG; Start 02/07/17 at 15:00 Polyethylene Glycol (Miralax) 17 gm BID PO Last administered on 02/14/17 09:30 ; Admin Dose 17 GM; Start 02/07/17 at 21:00 Bisacodyl (Dulcolax) 10 mg DAILY PRN PO CONSTIPATION; Start 02/07/17 at 16:30 Acetaminophen/ Hydrocodone Bitart ([place] (5/325)) 2 tab Q4H PRN PO pain; Start 02/08/17 at 14:00 Acetaminophen/ Hydrocodone Bitart ([place] (5/325)) 1 tab Q4H PRN PO pain Last administered on 02/14/17 00:02; Admin Dose 1 TAB; Start 02/08/17 at 14:00 Zolpidem Tartrate 10 mg 10 mg HS PRN PO INSOMNIA Last administered on 23:23; Admin Dose 10 MG; Start 02/10/17 at 23:30 Ceftriaxone Sodium 50 ml @ 100 mls/hr Q24H IVPB Last administered on 12:17; Admin Dose 100 MLS/HR; Start 02/11/17 at 11:30 Immune Globulin/N/ A/Sterile Water (Carimune Nf/ Evac Container/ Water Sterile For Inj) 600 ml @ 0 mls/hr DAILY@1530 IV Last administered on 02/13/17 15:51; Admin Dose 44 MLS/HR; Start 02/11/17 at 15:30; Stop 02/15/17 at 18:00 Acetaminophen (Tylenol Tab) 650 mg Q24H PO Last administered on 02/13/17 15:13 ; Admin Dose 650 MG; Start 02/12/17 at 14:30; Stop 02/15/17 at 14:31 Diphenhydramine HCl (Benadryl) 50 mg Q24H PO Last administered on 02/13/17 15: 12; Admin Dose 50 MG; Start 02/12/17 at 14:30; Stop 02/15/17 at 14:31 Hydrocortisone (Solu-Cortef) 100 mg Q24H IV Last administered on 02/13/17 15: 13; Admin Dose 100 MG; Start 02/12/17 at 14:30; Stop 02/15/17 at 14:31 Heparin Sodium (Porcine) (Heparin (5000 Units/0.5 ml)) 5,000 unit BID SC Last administered on 02/14/17 09:31; Admin Dose 5,000 UNIT; Start 02/13/17 at 21:00 Assessment/Plan Chief Complaint/Hosp Course 1. End-stage renal disease- will change hd to today given extra volume he is getting with IVIG, f/u lytes, volume 2. Mineral bone disorder. Monitor calcium and phosphorus levels. 3. Anemia. Monitor H and H levels.epogen as needed. 4. Congestive heart failure. Continue ultrafiltration dialysis. Continue medical management. 5. Hypertension. Continue current blood pressure regimen. 6. Sepsis bacteremia. Continue current antibiotic regimen. 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 8. Diabetes. Continue Accu-Cheks and insulin sliding scale. Problems: KANDICE RAYA MD Feb 14, 2017 09:34
[2017-02-14] MEDS: CEFTRIAXONE 1 GM/50 ML (PMX) 50 ML IVPB SCH (12:16)
--- NOTE | 2017-02-14 12:47 | PN ---
Date/Time of Note Date/Time of Note DATE: 02/14/17 TIME: 12:45 Assessment/Plan VTE Prophylaxis VTE Prophylaxis Intervention: heparin Lines/Catheters IV Catheter Type (from Nrs): Saline Lock Urinary Cath still in place: Yes Reason Cath still needed: other (indicate) (monitor I&O) Assessment/Plan Chief Complaint/Hosp Course Assessment and plan 1. Bilateral lower extremity weakness. Imaging of the brain is negative for any acute findings. Patient did have lumbar spine CT that did show multilevel central canal and neural foraminal stenosis. CSF analysis suggestive of viral meningitis. Continue with ID recommendations. IVIG per neurologist for suspect inflammatory neuropathy 2. ESRD. Continue on dialysis per nephrology recommendations. 3. Essential hypertension. Continue antihypertensives as needed 4. Diabetes. Continue insulin regimen. Stable at present. 5. CAD. Continue Dilantin therapy. 6 dyslipidemia. on statin medication. 7. Anemia of chronic disease. Stable at present. Monitor for now. Epogen per cab starter. 8. Bacteremia. cont with abx Disposition and plan: IVIG per neurologist. Continue with physical therapy. will likely need snf vs. ARU upon d/c Discussed plan of care faby Munguia Problems: Subjective 24 Hr Interval Summary Free Text/Dictation resting at this time.no s/s of distress Exam/Review of Systems Vital Signs Vitals Vital Signs Date Time Temp Pulse Resp B/P Pulse Ox O2 Delivery O2 Flow Rate FiO2 02/14/17 11:57 98.3 87 20 144/69 94 02/14/17 06:27 3.0 02/13/17 20:00 Nasal Cannula Intake and Output 02/13/17 02/13/17 02/14/17 15:00 23:00 07:00 Intake Total 650 ml 900 ml Output Total 200 ml 500 ml Balance 450 ml 400 ml Exam Constitutional: alert Respiratory: clear to auscultation Cardiovascular: regular rate and rhythm Gastrointestinal: soft, No distended Musculoskeletal: no normal gait, no swelling Results Result Diagram: 02/13/17 1138 02/13/17 1138 Results 24 hrs Laboratory Tests Test 02/13/17 17:09 02/13/17 21:00 02/14/17 08:13 02/14/17 11:58 Bedside Glucose 175 172 81 122 Medications Medications Current Medications Ondansetron HCl (Zofran Inj) 4 mg Q6 PRN IV NAUSEA AND/OR VOMITING Last administered on 02/04/17 20:49; Admin Dose 4 MG; Start 01/30/17 at 00:00 Acetaminophen (Tylenol Tab) 650 mg Q6H PRN PO PAIN AND OR ELEVATED TEMP Last administered on 02/13/17 06:00; Admin Dose 650 MG; Start 01/30/17 at 00:00 Clonidine (Catapres) 0.1 mg TID PRN PO FOR SBP >160 Last administered on 00:42; Admin Dose 0.1 MG; Start 01/30/17 at 00:00 Ergocalciferol (Drisdol) 50,000 unit Q7D PO Last administered on 02/08/17 08: 44; Admin Dose 50,000 UNIT; Start 02/01/17 at 09:00 Febuxostat (Uloric) 40 mg DAILY PO Last administered on 02/14/17 09:28; Admin Dose 40 MG; Start 01/30/17 at 09:00 Hydralazine HCl (Apresoline) 50 mg BID PO Last administered on 02/14/17 09:28 ; Admin Dose 50 MG; Start 01/30/17 at 00:00 Isosorbide Mononitrate (Imdur) 60 mg DAILY PO Last administered on 02/14/17 09 :29; Admin Dose 60 MG; Start 01/30/17 at 09:00 Prasugrel (Effient) 10 mg DAILY PO Last administered on 02/14/17 09:28; Admin Dose 10 MG; Start 01/30/17 at 09:00 Ropinirole HCl (Requip) 0.25 mg HS PO Last administered on 02/13/17 20:52; Admin Dose 0.25 MG; Start 01/30/17 at 21:00 Tamsulosin HCl (Flomax) 0.4 mg DAILY@21 PO Last administered on 02/13/17 20:52 ; Admin Dose 0.4 MG; Start 01/30/17 at 21:00 Fish Oil (Fish Oil) 1,000 mg BID PO Last administered on 02/14/17 09:28; Admin Dose 1,000 MG; Start 01/31/17 at 09:30 Atorvastatin Calcium (Lipitor) 10 mg QHS PO Last administered on 02/13/17 20: 53; Admin Dose 10 MG; Start 01/30/17 at 21:00 Multivit/Ca Carb/ B Cmplx/FA/Prenat (Paulina-Chrissy) 1 tab DAILY PO Last administered on 02/14/17 09:27; Admin Dose 1 TAB; Start 01/30/17 at 09:00 Carvedilol (Coreg) 3.125 mg BID PO Last administered on 02/14/17 09:29; Admin Dose 3.125 MG; Start 01/30/17 at 00:00 Miscellaneous Information 1 ea NOTE XX ; Start 01/30/17 at 01:00 Glucose (Glutose) 15 gm Q15M PRN PO DECREASED GLUCOSE; Start 01/30/17 at 01:00 Glucose (Glutose) 22.5 gm Q15M PRN PO DECREASED GLUCOSE; Start 01/30/17 at 01: 00 Dextrose (D50w Syringe) 25 ml Q15M PRN IV DECREASED GLUCOSE; Start 01/30/17 at 01:00 Dextrose (D50w Syringe) 50 ml Q15M PRN IV DECREASED GLUCOSE; Start 01/30/17 at 01:00 Glucagon (Glucagen) 1 mg Q15M PRN IM DECREASED GLUCOSE; Start 01/30/17 at 01:00 Glucose (Glutose) 15 gm Q15M PRN BUCCAL DECREASED GLUCOSE; Start 01/30/17 at 01 :00 Diagnostic Test (Pha) (Accu-Chek) 1 ea 02 XX Last administered on 02/14/17 02: 00; Admin Dose 1 EA; Start 01/31/17 at 02:00 Nifedipine (Procardia Xl) 30 mg BID PO Last administered on 02/14/17 09:28; Admin Dose 30 MG; Start 02/01/17 at 21:00 Nicotine (Nicoderm 14 Mg/ 24hr) 1 patch DAILY TRANSDERM Last administered on 09:30; Admin Dose 1 PATCH; Start 02/05/17 at 09:00 Famotidine (Pepcid) 20 mg DAILY PO Last administered on 02/14/17 09:28; Admin Dose 20 MG; Start 02/05/17 at 12:00 Docusate Sodium (Colace) 100 mg BID PO Last administered on 02/14/17 09:28; Admin Dose 100 MG; Start 02/07/17 at 15:00 Polyethylene Glycol (Miralax) 17 gm BID PO Last administered on 02/14/17 09:30 ; Admin Dose 17 GM; Start 02/07/17 at 21:00 Bisacodyl (Dulcolax) 10 mg DAILY PRN PO CONSTIPATION; Start 02/07/17 at 16:30 Acetaminophen/ Hydrocodone Bitart ([place] (5/325)) 2 tab Q4H PRN PO pain; Start 02/08/17 at 14:00 Acetaminophen/ Hydrocodone Bitart ([place] (5/325)) 1 tab Q4H PRN PO pain Last administered on 02/14/17 00:02; Admin Dose 1 TAB; Start 02/08/17 at 14:00 Zolpidem Tartrate 10 mg 10 mg HS PRN PO INSOMNIA Last administered on 23:23; Admin Dose 10 MG; Start 02/10/17 at 23:30 Ceftriaxone Sodium 50 ml @ 100 mls/hr Q24H IVPB Last administered on 12:16; Admin Dose 100 MLS/HR; Start 02/11/17 at 11:30 Immune Globulin/N/ A/Sterile Water (Carimune Nf/ Evac Container/ Water Sterile For Inj) 600 ml @ 0 mls/hr DAILY@1530 IV Last administered on 02/13/17 15:51; Admin Dose 44 MLS/HR; Start 02/11/17 at 15:30; Stop 02/15/17 at 18:00 Acetaminophen (Tylenol Tab) 650 mg Q24H PO Last administered on 02/13/17 15:13 ; Admin Dose 650 MG; Start 02/12/17 at 14:30; Stop 02/15/17 at 14:31 Diphenhydramine HCl (Benadryl) 50 mg Q24H PO Last administered on 02/13/17 15: 12; Admin Dose 50 MG; Start 02/12/17 at 14:30; Stop 02/15/17 at 14:31 Hydrocortisone (Solu-Cortef) 100 mg Q24H IV Last administered on 02/13/17 15: 13; Admin Dose 100 MG; Start 02/12/17 at 14:30; Stop 02/15/17 at 14:31 Heparin Sodium (Porcine) (Heparin (5000 Units/0.5 ml)) 5,000 unit BID SC Last administered on 02/14/17t 09:31; Admin Dose 5,000 UNIT; Start 02/13/17 at 21:00 JANES RAINES Feb 14, 2017 12:47
[2017-02-14] MEDS: ACETAMINOPHEN 325 MG TAB PO SCH (15:33)
[2017-02-14] MEDS: HYDROCORTISONE 100 MG INJ IV SCH (15:33)
[2017-02-14] MEDS: DIPHENHYDRAMINE 50 MG CAP PO SCH (15:33)
[2017-02-14] MEDS: WATER STERILE FOR IV SCH (15:58)
[2017-02-14] MEDS: EVAC CONTAINER IV SCH (15:58)
[2017-02-14] MEDS: IMMUNE GLOBULIN IV SCH (15:58)
--- NOTE | 2017-02-14 16:49 | CONS ---
Date/Time of Note Date/Time of Note DATE: 02/14/17 TIME: 16:47 Assessment/Plan Assessment/Plan Chief Complaint/Hosp Course ID PROGRESS NOTE TOTAL ABX DAY # 6 CURRENT ABX=> Ceftriaxone + IVIG + Steroids 24H INTERVAL SUMMARY * Stable, no fevers, WBC normal= sleeps and wakes up to eat per spouse-> then sleeps again, NAD, supplemental O2 GENERAL: VSS, NAD HEENT: Unremarkable NECK: Trach midline, full ROM CHEST: Rise symmetrical without dyspnea on observation ABDOMEN: Soft, EXTREMITIES: Warm,(+) moves extremities SKIN: No diaphoresis, no rash ID ASSESSMENT: 81 yo M admit with: 1. GNR bacteremia 02/07 K.PNEUMONIAE SSP PNEUMONIAE => Sepsis 06/18 GNR UTI on 02/09 : * URINE CULTURE Final Organism 1 K.PNEUMONIAE SSP PNEUMONIAE COLONY COUNT >100,000 CFU/ml Organism 2 PROTEUS MIRABILIS COLONY COUNT >100,000 CFU/ml K PNE SPP P. MIRAB M.I.C. RX M.I.C. RX --------- --- --------- --- AMPICILLIN >=32 R CEFAZOLIN S CEFOTAXIME S S CIPROFLOXACIN <=0.25 S <=0.25 S GENTAMICIN <=1 S <=1 S LEVOFLOXACIN <=0.12 S <=0.12 S NITROFURANTOIN 64 I 128 R TOBRAMYCIN <=1 S <=1 S TRIMETHOPRIM/SULFAMETHOXAZOLE <=20 S <=20 S 2. Viral meningitis, West Nile virus CSF IgM equivocal 3. End-stage renal disease, hemodialysis dependent 4. Diabetes. 5. Coronary artery disease and hypertension INVASIVES: ABX ALLERGY: None to ABX TOTAL ABX DAY # 6 CURRENT ABX=> Ceftriaxone + IVIG + Steroids ID PLAN 1. He needs 14 days total Ceftriaxone to cover concern for GNR septicemia on BCx 02/09 -> Repeat BCx (-) 2. Continue supportive care for WNV encephalitis . . Problems: Consultation Date/Type/Reason Admit Date/Time Jan 29, 2017 at 19:38 Initial Consult Date 01/30/17 Type of Consultation: ID Exam/Review of Systems Vital Signs Vitals Vital Signs Date Time Temp Pulse Resp B/P Pulse Ox O2 Delivery O2 Flow Rate FiO2 02/14/17 16:28 98.5 80 20 131/66 98 02/14/17 06:27 3.0 02/13/17 20:00 Nasal Cannula Intake and Output 02/13/17 02/13/17 02/14/17 15:00 23:00 07:00 Intake Total 650 ml 900 ml Output Total 200 ml 500 ml Balance 450 ml 400 ml Results Result Diagram: 02/13/17 1138 02/13/17 1138 Results 24 hrs Laboratory Tests Test 02/13/17 17:09 02/13/17 21:00 02/14/17 08:13 02/14/17 11:58 Bedside Glucose 175 172 81 122 Medications Medications Current Medications Ondansetron HCl (Zofran Inj) 4 mg Q6 PRN IV NAUSEA AND/OR VOMITING Last administered on 02/04/17 20:49; Admin Dose 4 MG; Start 01/30/17 at 00:00 Acetaminophen (Tylenol Tab) 650 mg Q6H PRN PO PAIN AND OR ELEVATED TEMP Last administered on 02/13/17 06:00; Admin Dose 650 MG; Start 01/30/17 at 00:00 Clonidine (Catapres) 0.1 mg TID PRN PO FOR SBP >160 Last administered on 00:42; Admin Dose 0.1 MG; Start 01/30/17 at 00:00 Ergocalciferol (Drisdol) 50,000 unit Q7D PO Last administered on 02/08/17 08: 44; Admin Dose 50,000 UNIT; Start 02/01/17 at 09:00 Febuxostat (Uloric) 40 mg DAILY PO Last administered on 02/14/17 09:28; Admin Dose 40 MG; Start 01/30/17 at 09:00 Hydralazine HCl (Apresoline) 50 mg BID PO Last administered on 02/14/17 09:28 ; Admin Dose 50 MG; Start 01/30/17 at 00:00 Isosorbide Mononitrate (Imdur) 60 mg DAILY PO Last administered on 02/14/17 09 :29; Admin Dose 60 MG; Start 01/30/17 at 09:00 Prasugrel (Effient) 10 mg DAILY PO Last administered on 02/14/17 09:28; Admin Dose 10 MG; Start 01/30/17 at 09:00 Ropinirole HCl (Requip) 0.25 mg HS PO Last administered on 02/13/17 20:52; Admin Dose 0.25 MG; Start 01/30/17 at 21:00 Tamsulosin HCl (Flomax) 0.4 mg DAILY@21 PO Last administered on 02/13/17 20:52 ; Admin Dose 0.4 MG; Start 01/30/17 at 21:00 Fish Oil (Fish Oil) 1,000 mg BID PO Last administered on 02/14/17 09:28; Admin Dose 1,000 MG; Start 01/31/17 at 09:30 Atorvastatin Calcium (Lipitor) 10 mg QHS PO Last administered on 02/13/17 20: 53; Admin Dose 10 MG; Start 01/30/17 at 21:00 Multivit/Ca Carb/ B Cmplx/FA/Prenat ([place]-Chrissy) 1 tab DAILY PO Last administered on 02/14/17 09:27; Admin Dose 1 TAB; Start 01/30/17 at 09:00 Carvedilol (Coreg) 3.125 mg BID PO Last administered on 02/14/17 09:29; Admin Dose 3.125 MG; Start 01/30/17 at 00:00 Miscellaneous Information 1 ea NOTE XX ; Start 01/30/17 at 01:00 Glucose (Glutose) 15 gm Q15M PRN PO DECREASED GLUCOSE; Start 01/30/17 at 01:00 Glucose (Glutose) 22.5 gm Q15M PRN PO DECREASED GLUCOSE; Start 01/30/17 at 01: 00 Dextrose (D50w Syringe) 25 ml Q15M PRN IV DECREASED GLUCOSE; Start 01/30/17 at 01:00 Dextrose (D50w Syringe) 50 ml Q15M PRN IV DECREASED GLUCOSE; Start 01/30/17 at 01:00 Glucagon (Glucagen) 1 mg Q15M PRN IM DECREASED GLUCOSE; Start 01/30/17 at 01:00 Glucose (Glutose) 15 gm Q15M PRN BUCCAL DECREASED GLUCOSE; Start 01/30/17 at 01 :00 Diagnostic Test (Pha) (Accu-Chek) 1 ea 02 XX Last administered on 02/14/17 02: 00; Admin Dose 1 EA; Start 01/31/17 at 02:00 Nifedipine (Procardia Xl) 30 mg BID PO Last administered on 02/14/17 09:28; Admin Dose 30 MG; Start 02/01/17 at 21:00 Nicotine (Nicoderm 14 Mg/ 24hr) 1 patch DAILY TRANSDERM Last administered on 09:30; Admin Dose 1 PATCH; Start 02/05/17 at 09:00 Famotidine (Pepcid) 20 mg DAILY PO Last administered on 02/14/17 09:28; Admin Dose 20 MG; Start 02/05/17 at 12:00 Docusate Sodium (Colace) 100 mg BID PO Last administered on 02/14/17 09:28; Admin Dose 100 MG; Start 02/07/17 at 15:00 Polyethylene Glycol (Miralax) 17 gm BID PO Last administered on 02/14/17 09:30 ; Admin Dose 17 GM; Start 02/07/17 at 21:00 Bisacodyl (Dulcolax) 10 mg DAILY PRN PO CONSTIPATION; Start 02/07/17 at 16:30 Acetaminophen/ Hydrocodone Bitart ([place] (5/325)) 2 tab Q4H PRN PO pain; Start 02/08/17 at 14:00 Acetaminophen/ Hydrocodone Bitart ([place] (5/325)) 1 tab Q4H PRN PO pain Last administered on 02/14/17 00:02; Admin Dose 1 TAB; Start 02/08/17 at 14:00 Zolpidem Tartrate 10 mg 10 mg HS PRN PO INSOMNIA Last administered on 23:23; Admin Dose 10 MG; Start 02/10/17 at 23:30 Ceftriaxone Sodium 50 ml @ 100 mls/hr Q24H IVPB Last administered on 12:16; Admin Dose 100 MLS/HR; Start 02/11/17 at 11:30 Immune Globulin/N/ A/Sterile Water ([place] Nf/ Evac Container/ Water Sterile For Inj) 600 ml @ 0 mls/hr DAILY@1530 IV Last administered on 02/14/17 15:58; Admin Dose 44 MLS/HR; Start 02/11/17 at 15:30; Stop 02/15/17 at 18:00 Acetaminophen (Tylenol Tab) 650 mg Q24H PO Last administered on 02/14/17 15:33 ; Admin Dose 650 MG; Start 02/12/17 at 14:30; Stop 02/15/17 at 14:31 Diphenhydramine HCl (Benadryl) 50 mg Q24H PO Last administered on 02/14/17 15: 33; Admin Dose 50 MG; Start 02/12/17 at 14:30; Stop 02/15/17 at 14:31 Hydrocortisone (Solu-Cortef) 100 mg Q24H IV Last administered on 02/14/17 15: 33; Admin Dose 100 MG; Start 02/12/17 at 14:30; Stop 02/15/17 at 14:31 Heparin Sodium (Porcine) (Heparin (5000 Units/0.5 ml)) 5,000 unit BID SC Last administered on 02/14/17 09:31; Admin Dose 5,000 UNIT; Start 02/13/17 at 21:00 AMAYA WHITAKER NP Feb 14, 2017 16:49
[2017-02-14] MEDS: TAMSULOSIN (SR) 0.4 MG CAP PO SCH (20:10)
[2017-02-14] MEDS: ROPINIROLE 0.25 MG TAB PO SCH (20:11)
[2017-02-14] MEDS: ATORVASTATIN 10 MG TAB PO SCH (20:12)
[2017-02-15] VITALS (16 sets, daily range): BP systolic 126–165; BP diastolic 48–82; PULSE 70–82; RESP 20
[2017-02-15] MEDS: HYDROCODONE/APAP (5/325) TAB PO PRN (00:10)
[2017-02-15] MEDS: ACCU-CHEK XX SCH (02:00)
[2017-02-15] MEDS ORDERED: hydrALAzine 20 MG INJ IV ONE (02:30)
[2017-02-15] MEDS ORDERED: FUROSEMIDE 20 MG INJ IV ONE (04:30)
[2017-02-15 07:19] LABS: ABNORMAL IP MESSAGE 1; EOSINOPHILS % 0.9 % (0.0-7.0); HEMATOCRIT 29.2 % (42.0-52.0); HEMOGLOBIN 9.3 g/dl (14.0-18.0); LYMPHOCYTES # 0.4 10^3/ul (0.8-2.9); LYMPHOCYTES % 8.5 % (15.0-51.0); MEAN CORPUSCULAR HEMOGLOBIN 32.4 pg (29.0-33.0); MEAN CORPUSCULAR HGB CONC 31.8 g/dl (32.0-37.0); MEAN CORPUSCULAR VOLUME 101.7 fl (82.0-101.0); MEAN PLATELET VOLUME 11.6 fl (7.4-10.4); MONOCYTE # 0.5 10^3/ul (0.3-0.9); MONOCYTES % 10.6 % (0.0-11.0); NEUTROPHIL # 3.3 10^3/ul (1.6-7.5); NEUTROPHILS % 75.4 % (39.0-77.0); PLATELET COUNT 77 10^3/UL (140-415); POSITIVE DIFF @See below; RED BLOOD COUNT 2.87 10^6/ul (4.70-6.10); RED CELL DISTRIBUTION WIDTH 14.4 % (11.5-14.5); WHITE BLOOD COUNT 4.3 10^3/ul (4.8-10.8)
[2017-02-15 07:54] LABS: CALCIUM 7.8 mg/dl (8.4-10.2); POTASSIUM 4.8 mmol/L (3.5-5.1)
[2017-02-15] MEDS: INSULIN ASPART [NOVOLOG] 3 ML PEN SC SCH ×4 (08:00→21:19)
[2017-02-15 08:15] LABS: CREATININE 9.15 mg/dl (0.61-1.24)
[2017-02-15] MEDS: ISOSORBIDE MONONITRATE(SR)60 MG TAB PO SCH (11:40)
[2017-02-15] MEDS: ERGOCALCIFEROL 50,000 UNIT CAP PO SCH (11:40)
[2017-02-15] MEDS: FISH OIL 1,000 MG CAP PO SCH ×2 (11:40→21:12)
[2017-02-15] MEDS: MULTIVIT/CA CARB/B CMPLX/FA TAB PO SCH (11:40)
[2017-02-15] MEDS: PRASUGREL HYDROCHLORIDE 10 MG TABLET PO SCH (11:41)
[2017-02-15] MEDS: DOCUSATE SODIUM 100 MG CAP PO SCH ×2 (11:41→21:12)
[2017-02-15] MEDS: SEVELAMER 800 MG TAB PO SCH ×3 (11:41→17:54)
[2017-02-15] MEDS: FEBUXOSTAT 40 MG TABLET PO SCH (11:42)
[2017-02-15] MEDS: NIFEdipine (XL) 30 MG TAB PO SCH ×2 (11:42→21:12)
[2017-02-15] MEDS: FAMOTIDINE 20 MG TAB PO SCH (11:42)
[2017-02-15] MEDS: POLYETHYLENE GLYCOL 17 GM PACKET PO SCH ×2 (11:42→21:13)
[2017-02-15] MEDS: HEPARIN 5,000 UNIT/0.5 ML VIAL SC SCH ×2 (11:44→21:16)
[2017-02-15] MEDS: NICOTINE (14 MG/24 HR) PATCH TRANSDERM SCH (11:44)
[2017-02-15] MEDS: CEFTRIAXONE 1 GM/50 ML (PMX) 50 ML IVPB SCH (11:45)
--- NOTE | 2017-02-15 12:12 | PN ---
DATE: SUBJECTIVE DATA: The patient is stable. No events overnight. No fevers, chills, nausea, vomiting. Patient is pending hemodialysis today. No other events noted. OBJECTIVE DATA: VITAL SIGNS: Blood pressure is 149/68, pulse 74, respirations 20, temperature 98.0 HEENT: Head is normocephalic. NECK: Supple. HEART: Regular rate. LUNGS: Show diminished breath sounds at the base. ABDOMEN: Soft, nontender to palpation. No rebound or guarding. EXTREMITIES: Negative for clubbing, cyanosis. No edema. DERMATOLOGIC: Clean. No rashes. MUSCULOSKELETAL: No joint effusion. NEUROLOGIC: No change in exam. MEDICATIONS: Patient's medications reviewed. LABORATORY DATA: Shows a sodium 127, potassium 4.8, BUN 18, creatinine 9.15, calcium 7.8. White count 4.3, hemoglobin 9.3, hematocrit 29.2. Platelet count is 77,000. ASSESSMENT AND PLAN: 1. Endstage renal disease. Plan for hemodialysis today. 2. Anemia. Monitor hemoglobin and hematocrit levels. Will give Epogen as needed. 3. Mineral bone disorder. Will monitor calcium and phosphorus levels. 4. Congestive heart failure. Continue ultrafiltration dialysis. 5. Hypertension. Continue current blood pressure regimen. 6. Sepsis bacteremia. Continue current antibiotic regimen. 7. Status encephalitis. Follow up with Neurology. Continue IVIG. 8. Diabetes. Continue Accu-Cheks, insulin sliding scale. 9. Lower extremity weakness secondary to meningitis. Will continue to monitor. Continue physical therapy. Dictated By: Arvind Galindo DO /waldo/[email or web address] /Document#: [id number]
--- NOTE | 2017-02-15 12:12 | CONS ---
DATE OF SERVICE: HISTORY OF PRESENT ILLNESS: The patient is 81 years old with decreasing gait, peripheral neuropathy, diabetes, peripheral vascular disease, and who is a patient on IVIG with some reaction. We started the patient on Benadryl and Tylenol prior to IVIG because the patient responded better. CURRENT MEDICATIONS: Include Tylenol 650 mg once a day, Benadryl 50 mg daily, Solu-Medrol 100 mg once a day, immune globulin (IVIG) once a day, ceftriaxone, Ambien 10 mg once a day, [place] 325 mg 2 tablets every 4 hours as needed, Colace 100 mg once a day, Pepcid 20 mg once a day, Procardia XL 30 mg once a day, fish oil. PHYSICAL EXAMINATION: GENERAL: On exam today, the patient is alert, awake, and follows simple commands. HEART: Regular rate and rhythm. LUNGS: Equal breath sounds. ABDOMEN: Soft, , nondistended, no tenderness. CRANIAL NERVES: Cranial nerve 2: Pupils equal on both sides, reactive to light. Cranial nerves 3, 4, and 6: Extraocular muscles intact. Cranial nerve 5: Equal sensation to face. Cranial nerve 7: Symmetrical face. Cranial nerve 8: Decreased hearing bilaterally. Cranial nerves 9, 10: Elevated palate. Cranial nerve 11: Elevates shoulder 5/5. Cranial nerve 12: With straight tongue. 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 Sensation decreased for glove and sock area for light touch and temperature. Coordination: [id number] test intact. Motor exam: Decreased bilateral lower extremity movement score, 1/5. Upper extremity is 4/5. ASSESSMENT AND PLAN: 1. The patient is an 81-year-old who has bilateral lower extremity weakness, continue the patient on physical therapy, gait, balance, fall precautions for now. 2. 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 Continue for 5 days. 3. Underlying diabetic myopathy, follow up the patient with electromyogram as well as nerve conduction study for more evaluation and treatment. 4. Underlying end-stage renal disease with the patient on dialysis. 5. Possibility of underlying viral meningitis with increased white cell count in his CSF with the patient followed by ID who ordered PCR for virus. Dictated By: Best Cagle MD /waldo/shamika /Document#: [id number]
--- NOTE | 2017-02-15 12:12 | PN ---
DATE: 02/14/2017 HISTORY OF PRESENT ILLNESS: The patient is 81 years old with bilateral lower extremity weakness, status post uncontrollable diabetes. The patient is on IVIG. PHYSICAL EXAMINATION: GENERAL: The patient is alert, awake and oriented. Can follow simple commands; however, difficulty in following 2nd and 3rd step commands. DRAPERY WORKER: CN II: Pupils equal on both sides. Reactive to light. CN III, IV, and : Extraocular muscles intact. CN V and VII: CN VIII: Decreased hearing bilaterally. CN IX, X, XI: MOTOR: Bilateral lower extremity is 2/5. Bilateral upper extremity is 4/5. SENSATION: . COORDINATION: Could not assess. HEART: Regular rate and rhythm. LUNGS: Equal breath sounds. ABDOMEN: Soft, nondistended, nontender. ASSESSMENT AND PLAN: 1. The patient is [id number] with underlying gait difficulty. Followup the patient with physical therapy for more evaluation and treatment. 2. Underlying diabetic . Might followup the patient with nerve conduction study and electromyogram when he is stable. 3. Underlying inflammatory neuropathy. The patient was started on IVIG for 5 days with some reaction, which were premedicated prior to the treatment. 4. End-stage renal disease. We will place the patient on dialysis, which could attribute to his neuropathy. 5. Abnormal white cell count viral meningitis. infectious disease. Dictated By: Best Cagle MD /waldo/radha /Document#: [id number]
[2017-02-15] MEDS ORDERED: [UNRECOGNIZED DRUG - REMARK] IV SCH (14:30)
[2017-02-15] MEDS ORDERED: [UNRECOGNIZED DRUG - REMARK] IV SCH (14:30)
[2017-02-15] MEDS: DIPHENHYDRAMINE 50 MG CAP PO SCH (15:15)
[2017-02-15] MEDS: HYDROCORTISONE 100 MG INJ IV SCH (15:15)
[2017-02-15] MEDS: ACETAMINOPHEN 325 MG TAB PO SCH (15:15)
--- NOTE | 2017-02-15 17:39 | PN ---
Date/Time of Note Date/Time of Note DATE: 02/15/17 TIME: 17:36 Assessment/Plan VTE Prophylaxis VTE Prophylaxis Intervention: SCD's Lines/Catheters IV [facility]ter [facility]from [facility] [place] Urinary Cath still in place: Yes Reason Cath still needed: other (indicate) Assessment/Plan Chief Complaint/Hosp Course 1. Bilateral lower extremity weakness. Brain imaging studies negative for any acute findings. S/P IV steroids and IV immunoglobulin. Lumbar spine CT showing multilevel central canal and neural foraminal stenosis. S/P lumbar puncture. CSF analysis suggestive of viral meningitis. Infectious Diseases following the patient. West Nile virus serology equivocal 2. End-stage renal disease on hemodialysis. Being followed by nephrology. 3. Essential hypertension. Continue antihypertensives. 4. Diabetes mellitus. Continue sliding scale insulin. 5. CAD. Continue antiplatelet therapy. 6. Dyslipidemia. Continue statins. 7. Anemia of chronic kidney disease. Monitor H&H closely. On Epogen as per nephrology. 8. Urinary tract infection. Continue antimicrobials as per infectious diseases. 9. Sepsis with Klebsiella pneumoniae bacteremia and UTI. On antibiotics as per ID. 10. Fluids, electrolytes, and nutrition. Carbohydrate controlled, renal diet. 11. DVT prophylaxis. Bilateral sequential compression devices. 12. Plan. Continue physical therapy. Await further recommendations from consultants. Needs placement. Case discussed with Dr. Willett. Problems: Subjective 24 Hr Interval Summary Free Text/Dictation Denies any pain. Exam/Review of Systems Vital Signs Vitals Vital Signs Date Time Temp Pulse Resp B/P Pulse Ox O2 Delivery O2 Flow Rate FiO2 02/15/17 16:29 74 02/15/17 16:00 98.0 20 126/48 98 02/15/17 08:30 Nasal Cannula 2.0 Intake and Output 02/14/17 02/14/17 02/15/17 15:00 23:00 07:00 Intake Total 700 ml 2150 ml Output Total 150 ml 2675 ml Balance 550 ml -525 ml Exam General: Adequately build 81 year-old male lying in bed in no apparent distress. HEENT: Normocephalic, atraumatic. Eyes: Anicteric sclerae, conjunctivae clear. ENT: Nasal septum midline, oral mucosa moist. Neck supple, no JVD noticed. Respiratory: Bilaterally clear breath sounds. No use of accessory muscles of respiration. No adventitious breath sounds. Cardiovascular: S1, S2 heard. No murmurs or gallops. Abdomen: Soft, nontender, and nondistended. Bowel sounds positive in all 4 quadrants. Genitourinary: Deferred. Extremities: No cyanosis, no clubbing, no edema. Peripheral pulses palpable. Neurologic: Cranial nerves II through XII grossly intact. The patient is awake, alert, and oriented. B/L LE 4/5 strength. B/L UE 5/5 strength. Skin: Normal skin turgor. No skin rashes. Results Result Diagram: 02/15/17 0650 02/15/17 0650 Results 24 hrs Laboratory Tests Test 02/14/17 21:06 02/15/17 02:58 02/15/17 06:50 02/15/17 08:51 Bedside Glucose 272 H 142 122 White Blood Count 4.3 #L Red Blood Count 2.87 L Hemoglobin 9.3 L Hematocrit 29.2 L Mean Corpuscular Volume 101.7 H Mean Corpuscular Hemoglobin 32.4 Mean Corpuscular Hemoglobin Concent 31.8 L Red Cell Distribution Width 14.4 Platelet Count 77 L Mean Platelet Volume 11.6 H Neutrophils % 75.4 Lymphocytes % 8.5 L Monocytes % 10.6 Eosinophils % 0.9 Basophils % 0.0 Nucleated Red Blood Cells % 0.0 Neutrophils # 3.3 Lymphocytes # 0.4 L Monocytes # 0.5 Eosinophils # 0.0 Basophils # 0.0 Nucleated Red Blood Cells # 0.0 Sodium Level 127 L Potassium Level 4.8 Chloride Level 97 Carbon Dioxide Level 21 Anion Gap 14 Blood Urea Nitrogen 118 #H Creatinine 9.15 #H Glucose Level 135 Calcium Level 7.8 L Medications Medications Current Medications Ondansetron HCl (Zofran Inj) 4 mg Q6 PRN IV NAUSEA AND/OR VOMITING Last administered on 02/04/17 20:49; Admin Dose 4 MG; Start 01/30/17 at 00:00 Acetaminophen (Tylenol Tab) 650 mg Q6H PRN PO PAIN AND OR ELEVATED TEMP Last administered on 02/13/17 06:00; Admin Dose 650 MG; Start 01/30/17 at 00:00 Clonidine (Catapres) 0.1 mg TID PRN PO FOR SBP >160 Last administered on 00:11; Admin Dose 0.1 MG; Start 01/30/17 at 00:00 Ergocalciferol (Drisdol) 50,000 unit Q7D PO Last administered on 02/15/17 11: 40; Admin Dose 50,000 UNIT; Start 02/01/17 at 09:00 Febuxostat (Uloric) 40 mg DAILY PO Last administered on 02/15/17 11:42; Admin Dose 40 MG; Start 01/30/17 at 09:00 Hydralazine HCl (Apresoline) 50 mg BID PO Last administered on 02/15/17 11:41 ; Admin Dose 50 MG; Start 01/30/17 at 00:00 Isosorbide Mononitrate (Imdur) 60 mg DAILY PO Last administered on 02/15/17 11 :40; Admin Dose 60 MG; Start 01/30/17 at 09:00 Prasugrel (Effient) 10 mg DAILY PO Last administered on 02/15/17 11:41; Admin Dose 10 MG; Start 01/30/17 at 09:00 Ropinirole HCl (Requip) 0.25 mg HS PO Last administered on 02/14/17 20:11; Admin Dose 0.25 MG; Start 01/30/17 at 21:00 Tamsulosin HCl (Flomax) 0.4 mg DAILY@21 PO Last administered on 02/14/17 20:10 ; Admin Dose 0.4 MG; Start 01/30/17 at 21:00 Fish Oil (Fish Oil) 1,000 mg BID PO Last administered on 02/15/17 11:40; Admin Dose 1,000 MG; Start 01/31/17 at 09:30 Atorvastatin Calcium (Lipitor) 10 mg QHS PO Last administered on 02/14/17 20: 12; Admin Dose 10 MG; Start 01/30/17 at 21:00 Multivit/Ca Carb/ B Cmplx/FA/Prenat (Paulina-Chrissy) 1 tab DAILY PO Last administered on 02/15/17 11:40; Admin Dose 1 TAB; Start 01/30/17 at 09:00 Carvedilol (Coreg) 3.125 mg BID PO Last administered on 02/15/17 11:43; Admin Dose 3.125 MG; Start 01/30/17 at 00:00 Miscellaneous Information 1 ea NOTE XX ; Start 01/30/17 at 01:00 Glucose (Glutose) 15 gm Q15M PRN PO DECREASED GLUCOSE; Start 01/30/17 at 01:00 Glucose (Glutose) 22.5 gm Q15M PRN PO DECREASED GLUCOSE; Start 01/30/17 at 01: 00 Dextrose (D50w Syringe) 25 ml Q15M PRN IV DECREASED GLUCOSE; Start 01/30/17 at 01:00 Dextrose (D50w Syringe) 50 ml Q15M PRN IV DECREASED GLUCOSE; Start 01/30/17 at 01:00 Glucagon (Glucagen) 1 mg Q15M PRN IM DECREASED GLUCOSE; Start 01/30/17 at 01:00 Glucose (Glutose) 15 gm Q15M PRN BUCCAL DECREASED GLUCOSE; Start 01/30/17 at 01 :00 Diagnostic Test (Pha) (Accu-Chek) 1 ea 02 XX Last administered on 02/15/17 02: 00; Admin Dose 1 EA; Start 01/31/17 at 02:00 Nifedipine (Procardia Xl) 30 mg BID PO Last administered on 02/15/17 11:42; Admin Dose 30 MG; Start 02/01/17 at 21:00 Nicotine (Nicoderm 14 Mg/ 24hr) 1 patch DAILY TRANSDERM Last administered on 11:44; Admin Dose 1 PATCH; Start 02/05/17 at 09:00 Famotidine (Pepcid) 20 mg DAILY PO Last administered on 02/15/17 11:42; Admin Dose 20 MG; Start 02/05/17 at 12:00 Docusate Sodium (Colace) 100 mg BID PO Last administered on 02/15/17 11:41; Admin Dose 100 MG; Start 02/07/17 at 15:00 Polyethylene Glycol (Miralax) 17 gm BID PO Last administered on 02/15/17 11:42 ; Admin Dose 17 GM; Start 02/07/17 at 21:00 Bisacodyl (Dulcolax) 10 mg DAILY PRN PO CONSTIPATION; Start 02/07/17 at 16:30 Acetaminophen/ Hydrocodone Bitart ([place] (5/325)) 2 tab Q4H PRN PO pain; Start 02/08/17 at 14:00 Acetaminophen/ Hydrocodone Bitart ([place] (5/325)) 1 tab Q4H PRN PO pain Last administered on 02/15/17 00:10; Admin Dose 1 TAB; Start 02/08/17 at 14:00 Zolpidem Tartrate 10 mg 10 mg HS PRN PO INSOMNIA Last administered on 23:23; Admin Dose 10 MG; Start 02/10/17 at 23:30 Ceftriaxone Sodium (Rocephin) 50 ml @ 100 mls/hr Q24H IVPB Last administered on 02/15/17 11:45; Admin Dose 100 MLS/HR; Start 02/11/17 at 11:30 Heparin Sodium (Porcine) (Heparin (5000 Units/0.5 ml)) 5,000 unit BID SC Last administered on 02/15/17 11:44; Admin Dose 5,000 UNIT; Start 02/13/17 at 21:00 Epoetin [place] 6000 units 6,000 units MoWeFr@17 SC ; Start 02/15/17 at 17:00 Dextrose/Sodium Chloride (Custom Iv) 400 ml @ 44 mls/hr Q9H6M IV Last administered on 02/15/17 16:31; Admin Dose 44 MLS/HR; Start 02/15/17 at 14:30; Stop 02/15/17 at 22:00 ALICIA ISAACS NP Feb 15, 2017 17:39
[2017-02-15] MEDS: EPOETIN 3000 UNITS/1 ML INJ (ESRD) SC SCH (17:56)
[2017-02-15] MEDS: TAMSULOSIN (SR) 0.4 MG CAP PO SCH (21:11)
[2017-02-15] MEDS: ROPINIROLE 0.25 MG TAB PO SCH (21:11)
[2017-02-15] MEDS: ATORVASTATIN 10 MG TAB PO SCH (21:12)
[2017-02-16] VITALS (13 sets, daily range): BP systolic 109–184; BP diastolic 55–80; PULSE 72–82; RESP 16–20
[2017-02-16] MEDS: ACCU-CHEK XX SCH (02:00)
--- NOTE | 2017-02-16 04:48 | PN ---
DATE: 02/15/2017 SUBJECTIVE DATA: No acute changes. The patient is sleeping, looks comfortable. No fevers. LABORATORY AND DIAGNOSTIC DATA: WBC 4.3, platelets neutrophils 75.4. ANTIMICROBIALS: The patient is on IV Rocephin. MICROBIOLOGY: Blood culture on February 07 grew Klebsiella pneumonia. Urine culture grew Klebsiella and Proteus mirabilis. INDWELLINGS: Right chest PermCath. PHYSICAL EXAMINATION: GENERAL: This is an obese, chronically ill-appearing, elderly man, who is in no distress. HEENT: Head atraumatic, normocephalic. Sclerae anicteric. Buccal mucosa dry. NECK: Supple. CHEST: Chest rise symmetrical. Breath sounds clear. Diminished at the bases. HEART: S1, S2. ABDOMEN: Soft, bowel sounds present. EXTREMITIES: Without cyanosis. ASSESSMENT: 1. Status post systemic inflammatory response syndrome with low- grade fevers and chills. 2. Multidrug resistant urinary tract infection with bacteremia, repeat blood cultures negative. 3. Status post encephalopathy with evidence of vital meningitis per lumbar puncture cytology and West Nile virus, IgM . Patient received IVIG, neurology follows him. 4. Diabetes. 5. End-stage renal disease, hemodialysis dependent. PLAN: The patient remains stable. Completing antibiotics. He is being followed by Neurology and Nephrology. He needs to complete 7 more days antibiotics that may be downgraded to either oral Levaquin or gentamicin with hemodialysis. Dictated By: Rowena Montelongo NP /waldo/dante /Document#: [id number]
[2017-02-16] MEDS: INSULIN ASPART [NOVOLOG] 3 ML PEN SC SCH ×4 (08:00→20:37)
[2017-02-16] MEDS: POLYETHYLENE GLYCOL 17 GM PACKET PO SCH ×2 (09:40→20:29)
[2017-02-16] MEDS: NICOTINE (14 MG/24 HR) PATCH TRANSDERM SCH (09:40)
--- NOTE | 2017-02-16 09:40 | PN ---
DATE: 02/16/2017 SUBJECTIVE DATA: Patient is stable. Had hemodialysis yesterday. OBJECTIVE DATA: VITAL SIGNS: Blood pressure 140/63, temperature 98.3, pulse 78, respirations 20, saturating 96 percent. HEENT: Head is normocephalic. NECK: Supple. HEART: Regular rate. LUNGS: Diminished breath sounds at the base. ABDOMEN: Soft, nontender to palpation. No rebound or guarding. EXTREMITIES: Negative for clubbing, cyanosis. No edema. DERMATOLOGIC: Clean. No rashes. MUSCULOSKELETAL: No joint effusion. NEUROLOGIC: Unchanged exam. MEDICATIONS: Reviewed. LABORATORY AND DIAGNOSTIC DATA: Been reviewed. ASSESSMENT AND PLAN: 1. End-stage renal disease. Plan for hemodialysis tomorrow. 2. Anemia. Monitor hemoglobin and hematocrit levels. Will give Epogen as needed. 3. Mineral bone disorder. Monitor calcium and phosphorus levels. 4. Congestive heart failure. Continue ultrafiltration dialysis. 5. Hypertension. Continue current blood pressure regimen. 6. Sepsis bacteremia. Patient completed antibiotic course. 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 Continue IVIG. 8. Diabetes. Continue Accu-Cheks and sliding scale. Dictated By: Arvind Galindo DO /waldo/malena /Document#: [id number]
[2017-02-16] MEDS: FAMOTIDINE 20 MG TAB PO SCH (09:41)
[2017-02-16] MEDS: SEVELAMER 800 MG TAB PO SCH ×3 (09:42→17:37)
[2017-02-16] MEDS: FEBUXOSTAT 40 MG TABLET PO SCH (09:42)
[2017-02-16] MEDS: FISH OIL 1,000 MG CAP PO SCH ×2 (09:42→20:27)
[2017-02-16] MEDS: DOCUSATE SODIUM 100 MG CAP PO SCH ×2 (09:42→20:28)
[2017-02-16] MEDS: NIFEdipine (XL) 30 MG TAB PO SCH ×2 (09:43→20:28)
[2017-02-16] MEDS: MULTIVIT/CA CARB/B CMPLX/FA TAB PO SCH (09:43)
[2017-02-16] MEDS: ISOSORBIDE MONONITRATE(SR)60 MG TAB PO SCH (09:43)
[2017-02-16] MEDS: HEPARIN 5,000 UNIT/0.5 ML VIAL SC SCH ×2 (09:44→20:32)
--- NOTE | 2017-02-16 09:52 | PN ---
Date/Time of Note Date/Time of Note DATE: 02/16/17 TIME: 09:51 Assessment/Plan VTE Prophylaxis VTE Prophylaxis Intervention: SCD's Lines/Catheters IV [facility]from [facility] [facility] Urinary Cath still in place: Yes Reason Cath still needed: other (indicate) Assessment/Plan Chief Complaint/Hosp Course 1. Bilateral lower extremity weakness. Brain imaging studies negative for any acute findings. S/P IV steroids by Neurology. S/P IV immunoglobulin. Lumbar spine CT showing multilevel central canal and neural foraminal stenosis. S/P lumbar puncture. CSF analysis suggestive of viral meningitis. Infectious Diseases following the patient. West Nile virus serology equivocal 2. End-stage renal disease on hemodialysis. Being followed by nephrology. 3. Essential hypertension. Continue antihypertensives. 4. Diabetes mellitus. Continue sliding scale insulin. 5. CAD. Continue antiplatelet therapy. 6. Dyslipidemia. Continue statins. 7. Anemia of chronic kidney disease. Monitor H&H closely. On Epogen as per nephrology. 8. Urinary tract infection. Continue antimicrobials as per infectious diseases. 9. Sepsis with Klebsiella pneumoniae bacteremia and UTI. On antibiotics as per ID. 10. Fluids, electrolytes, and nutrition. Carbohydrate controlled, renal diet. 11. DVT prophylaxis. Bilateral sequential compression devices. 12. Plan. S/P IVIG as per neurology. Continue physical therapy. Await further recommendations from consultants. The patient most probably needs placement. Case discussed with Dr. Willett. Problems: Subjective 24 Hr Interval Summary Free Text/Dictation The patient remains stable. Exam/Review of Systems Vital Signs Vitals Vital Signs Date Time Temp Pulse Resp B/P Pulse Ox O2 Delivery O2 Flow Rate FiO2 02/16/17 07:46 98.3 78 20 140/63 96 02/16/17 04:00 Nasal Cannula 2.0 Intake and Output 02/15/17 02/15/17 02/16/17 15:00 23:00 07:00 Intake Total 1000 ml Balance 1000 ml Exam General: Adequately build 81 year-old male lying in bed in no apparent distress. HEENT: Normocephalic, atraumatic. Eyes: Anicteric sclerae, conjunctivae clear. ENT: Nasal septum midline, oral mucosa moist. Neck supple, no JVD noticed. Respiratory: Bilaterally clear breath sounds. No use of accessory muscles of respiration. No adventitious breath sounds. Cardiovascular: S1, S2 heard. No murmurs or gallops. Abdomen: Soft, nontender, and nondistended. Bowel sounds positive in all 4 quadrants. Genitourinary: Deferred. Extremities: No cyanosis, no clubbing, no edema. Peripheral pulses palpable. Neurologic: Cranial nerves II through XII grossly intact. The patient is awake, alert, and oriented. B/L LE 4/5 strength. B/L UE 5/5 strength. Skin: Normal skin turgor. No skin rashes. Results Result Diagram: 02/15/17 0650 02/15/17 0650 Results 24 hrs Laboratory Tests Test 02/15/17 17:53 02/15/17 21:08 02/16/17 01:53 02/16/17 08:47 Bedside Glucose 195 229 H 142 80 Medications Medications Current Medications Ondansetron HCl (Zofran Inj) 4 mg Q6 PRN IV NAUSEA AND/OR VOMITING Last administered on 02/04/17 20:49; Admin Dose 4 MG; Start 01/30/17 at 00:00 Acetaminophen (Tylenol Tab) 650 mg Q6H PRN PO PAIN AND OR ELEVATED TEMP Last administered on 02/13/17 06:00; Admin Dose 650 MG; Start 01/30/17 at 00:00 Clonidine (Catapres) 0.1 mg TID PRN PO FOR SBP >160 Last administered on 00:11; Admin Dose 0.1 MG; Start 01/30/17 at 00:00 Ergocalciferol (Drisdol) 50,000 unit Q7D PO Last administered on 02/15/17 11: 40; Admin Dose 50,000 UNIT; Start 02/01/17 at 09:00 Febuxostat (Uloric) 40 mg DAILY PO Last administered on 02/16/17 09:42; Admin Dose 40 MG; Start 01/30/17 at 09:00 Hydralazine HCl (Apresoline) 50 mg BID PO Last administered on 02/16/17 09:41 ; Admin Dose 50 MG; Start 01/30/17 at 00:00 Isosorbide Mononitrate (Imdur) 60 mg DAILY PO Last administered on 02/16/17 09 :43; Admin Dose 60 MG; Start 01/30/17 at 09:00 Prasugrel (Effient) 10 mg DAILY PO Last administered on 02/15/17 11:41; Admin Dose 10 MG; Start 01/30/17 at 09:00 Ropinirole HCl (Requip) 0.25 mg HS PO Last administered on 02/15/17 21:11; Admin Dose 0.25 MG; Start 01/30/17 at 21:00 Tamsulosin HCl (Flomax) 0.4 mg DAILY@21 PO Last administered on 02/15/17 21:11 ; Admin Dose 0.4 MG; Start 01/30/17 at 21:00 Fish Oil (Fish Oil) 1,000 mg BID PO Last administered on 02/16/17 09:42; Admin Dose 1,000 MG; Start 01/31/17 at 09:30 Atorvastatin Calcium (Lipitor) 10 mg QHS PO Last administered on 02/15/17 21: 12; Admin Dose 10 MG; Start 01/30/17 at 21:00 Multivit/Ca Carb/ B Cmplx/FA/Prenat (Paulina-Chrissy) 1 tab DAILY PO Last administered on 02/16/17 09:43; Admin Dose 1 TAB; Start 01/30/17 at 09:00 Carvedilol (Coreg) 3.125 mg BID PO Last administered on 02/16/17 09:42; Admin Dose 3.125 MG; Start 01/30/17 at 00:00 Miscellaneous Information 1 ea NOTE XX ; Start 01/30/17 at 01:00 Glucose (Glutose) 15 gm Q15M PRN PO DECREASED GLUCOSE; Start 01/30/17 at 01:00 Glucose (Glutose) 22.5 gm Q15M PRN PO DECREASED GLUCOSE; Start 01/30/17 at 01: 00 Dextrose (D50w Syringe) 25 ml Q15M PRN IV DECREASED GLUCOSE; Start 01/30/17 at 01:00 Dextrose (D50w Syringe) 50 ml Q15M PRN IV DECREASED GLUCOSE; Start 01/30/17 at 01:00 Glucagon (Glucagen) 1 mg Q15M PRN IM DECREASED GLUCOSE; Start 01/30/17 at 01:00 Glucose (Glutose) 15 gm Q15M PRN BUCCAL DECREASED GLUCOSE; Start 01/30/17 at 01 :00 Diagnostic Test (Pha) (Accu-Chek) 1 ea 02 XX Last administered on 02/15/17 02: 00; Admin Dose 1 EA; Start 01/31/17 at 02:00 Nifedipine (Procardia Xl) 30 mg BID PO Last administered on 02/16/17 09:43; Admin Dose 30 MG; Start 02/01/17 at 21:00 Nicotine (Nicoderm 14 Mg/ 24hr) 1 patch DAILY TRANSDERM Last administered on 09:40; Admin Dose 1 PATCH; Start 02/05/17 at 09:00 Famotidine (Pepcid) 20 mg DAILY PO Last administered on 02/16/17 09:41; Admin Dose 20 MG; Start 02/05/17 at 12:00 Docusate Sodium (Colace) 100 mg BID PO Last administered on 02/16/17 09:42; Admin Dose 100 MG; Start 02/07/17 at 15:00 Polyethylene Glycol (Miralax) 17 gm BID PO Last administered on 02/16/17 09:40 ; Admin Dose 17 GM; Start 02/07/17 at 21:00 Bisacodyl (Dulcolax) 10 mg DAILY PRN PO CONSTIPATION; Start 02/07/17 at 16:30 Acetaminophen/ Hydrocodone Bitart ([place] (5/325)) 2 tab Q4H PRN PO pain; Start 02/08/17 at 14:00 Acetaminophen/ Hydrocodone Bitart ([place] (5/325)) 1 tab Q4H PRN PO pain Last administered on 02/15/17 00:10; Admin Dose 1 TAB; Start 02/08/17 at 14:00 Zolpidem Tartrate 10 mg 10 mg HS PRN PO INSOMNIA Last administered on 23:23; Admin Dose 10 MG; Start 02/10/17 at 23:30 Ceftriaxone Sodium (Rocephin) 50 ml @ 100 mls/hr Q24H IVPB Last administered on 02/15/17 11:45; Admin Dose 100 MLS/HR; Start 02/11/17 at 11:30 Heparin Sodium (Porcine) (Heparin (5000 Units/0.5 ml)) 5,000 unit BID SC Last administered on 02/16/17 09:44; Admin Dose 5,000 UNIT; Start 02/13/17 at 21:00 Epoetin Keven (Epogen (Esrd)) 6,000 units MoWeFr@17 SC Last administered on 02/15t 17:56; Admin Dose 6,000 UNITS; Start 02/15/17 at 17:00 ALICIA ISAACS NP Feb 16, 2017 09:52
[2017-02-16] MEDS: PRASUGREL HYDROCHLORIDE 10 MG TABLET PO SCH (10:31)
[2017-02-16] MEDS: CEFTRIAXONE 1 GM/50 ML (PMX) 50 ML IVPB SCH ×2 (11:30→17:39)
--- NOTE | 2017-02-16 14:16 | CONS ---
Date/Time of Note Date/Time of Note DATE: 02/16/17 TIME: 14:14 Assessment/Plan Assessment/Plan Chief Complaint/Hosp Course SUBJECTIVE DATA: No acute changes. The patient is awake, looks comfortable. No fevers. ANTIMICROBIALS: Rocephin. MICROBIOLOGY: Blood culture on February 07 grew Klebsiella pneumonia. Urine culture grew Klebsiella and Proteus mirabilis. Repeat bld cx negative INDWELLINGS: Right chest PermCath, [place]. PHYSICAL EXAMINATION: GENERAL: This is an obese, chronically ill-appearing, elderly man, who is in no distress. HEENT: Head atraumatic, normocephalic. Sclerae anicteric. Buccal mucosa dry. NECK: Supple. CHEST: Chest rise symmetrical. Breath sounds clear. Diminished at the bases. HEART: S1, S2. ABDOMEN: Soft, bowel sounds present. EXTREMITIES: Without cyanosis. ASSESSMENT: 1. Status post systemic inflammatory response syndrome with low- grade fevers and chills. 2. Multidrug resistant urinary tract infection with bacteremia, repeat blood cultures negative. 3. 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 Patient received IVIG, neurology follows him. 4. Diabetes. 5. End-stage renal disease, hemodialysis dependent. PLAN: The patient remains stable. Repeat bld cx negative, continue abx for 6 more days, may dc on Gentamicin with HD or oral Levaquin to complete the course Problems: Consultation Date/Type/Reason Admit Date/Time Jan 29, 2017 at 19:38 Initial Consult Date 01/30/17 Type of Consultation: ID Exam/Review of Systems Vital Signs Vitals Vital Signs Date Time Temp Pulse Resp B/P Pulse Ox O2 Delivery O2 Flow Rate FiO2 02/16/17 12:00 81 02/16/17 12:00 98.3 20 123/60 98 02/16/17 04:00 Nasal Cannula 2.0 Intake and Output 02/15/17 02/15/17 02/16/17 15:00 23:00 07:00 Intake Total 1000 ml Balance 1000 ml Results Result Diagram: 02/15/17 0650 02/15/17 0650 Results 24 hrs Laboratory Tests Test 02/15/17 17:53 02/15/17 21:08 02/16/17 01:53 02/16/17 08:47 Bedside Glucose 195 229 H 142 80 Test 02/16/17 12:15 Bedside Glucose 115 Medications Medications Current Medications Ondansetron HCl (Zofran Inj) 4 mg Q6 PRN IV NAUSEA AND/OR VOMITING Last administered on 02/04/17 20:49; Admin Dose 4 MG; Start 01/30/17 at 00:00 Acetaminophen (Tylenol Tab) 650 mg Q6H PRN PO PAIN AND OR ELEVATED TEMP Last administered on 02/13/17 06:00; Admin Dose 650 MG; Start 01/30/17 at 00:00 Clonidine (Catapres) 0.1 mg TID PRN PO FOR SBP >160 Last administered on 00:11; Admin Dose 0.1 MG; Start 01/30/17 at 00:00 Ergocalciferol (Drisdol) 50,000 unit Q7D PO Last administered on 02/15/17 11: 40; Admin Dose 50,000 UNIT; Start 02/01/17 at 09:00 Febuxostat (Uloric) 40 mg DAILY PO Last administered on 02/16/17 09:42; Admin Dose 40 MG; Start 01/30/17 at 09:00 Hydralazine HCl (Apresoline) 50 mg BID PO Last administered on 02/16/17 09:41 ; Admin Dose 50 MG; Start 01/30/17 at 00:00 Isosorbide Mononitrate (Imdur) 60 mg DAILY PO Last administered on 02/16/17 09 :43; Admin Dose 60 MG; Start 01/30/17 at 09:00 Prasugrel (Effient) 10 mg DAILY PO Last administered on 02/16/17 10:31; Admin Dose 10 MG; Start 01/30/17 at 09:00 Ropinirole HCl (Requip) 0.25 mg HS PO Last administered on 02/15/17 21:11; Admin Dose 0.25 MG; Start 01/30/17 at 21:00 Tamsulosin HCl (Flomax) 0.4 mg DAILY@21 PO Last administered on 02/15/17 21:11 ; Admin Dose 0.4 MG; Start 01/30/17 at 21:00 Fish Oil (Fish Oil) 1,000 mg BID PO Last administered on 02/16/17 09:42; Admin Dose 1,000 MG; Start 01/31/17 at 09:30 Atorvastatin Calcium (Lipitor) 10 mg QHS PO Last administered on 02/15/17 21: 12; Admin Dose 10 MG; Start 01/30/17 at 21:00 Multivit/Ca Carb/ B Cmplx/FA/Prenat (Paulina-Chrissy) 1 tab DAILY PO Last administered on 02/16/17 09:43; Admin Dose 1 TAB; Start 01/30/17 at 09:00 Carvedilol (Coreg) 3.125 mg BID PO Last administered on 02/16/17 09:42; Admin Dose 3.125 MG; Start 01/30/17 at 00:00 Miscellaneous Information 1 ea NOTE XX ; Start 01/30/17 at 01:00 Glucose (Glutose) 15 gm Q15M PRN PO DECREASED GLUCOSE; Start 01/30/17 at 01:00 Glucose (Glutose) 22.5 gm Q15M PRN PO DECREASED GLUCOSE; Start 01/30/17 at 01: 00 Dextrose (D50w Syringe) 25 ml Q15M PRN IV DECREASED GLUCOSE; Start 01/30/17 at 01:00 Dextrose (D50w Syringe) 50 ml Q15M PRN IV DECREASED GLUCOSE; Start 01/30/17 at 01:00 Glucagon (Glucagen) 1 mg Q15M PRN IM DECREASED GLUCOSE; Start 01/30/17 at 01:00 Glucose (Glutose) 15 gm Q15M PRN BUCCAL DECREASED GLUCOSE; Start 01/30/17 at 01 :00 Diagnostic Test (Pha) (Accu-Chek) 1 ea 02 XX Last administered on 02/15/17 02: 00; Admin Dose 1 EA; Start 01/31/17 at 02:00 Nifedipine (Procardia Xl) 30 mg BID PO Last administered on 02/16/17 09:43; Admin Dose 30 MG; Start 02/01/17 at 21:00 Nicotine (Nicoderm 14 Mg/ 24hr) 1 patch DAILY TRANSDERM Last administered on 09:40; Admin Dose 1 PATCH; Start 02/05/17 at 09:00 Famotidine (Pepcid) 20 mg DAILY PO Last administered on 02/16/17 09:41; Admin Dose 20 MG; Start 02/05/17 at 12:00 Docusate Sodium (Colace) 100 mg BID PO Last administered on 02/16/17 09:42; Admin Dose 100 MG; Start 02/07/17 at 15:00 Polyethylene Glycol (Miralax) 17 gm BID PO Last administered on 02/16/17 09:40 ; Admin Dose 17 GM; Start 02/07/17 at 21:00 Bisacodyl (Dulcolax) 10 mg DAILY PRN PO CONSTIPATION; Start 02/07/17 at 16:30 Acetaminophen/ Hydrocodone Bitart ([place] (5/325)) 2 tab Q4H PRN PO pain; Start 02/08/17 at 14:00 Acetaminophen/ Hydrocodone Bitart ([place] (5/325)) 1 tab Q4H PRN PO pain Last administered on 02/15/17 00:10; Admin Dose 1 TAB; Start 02/08/17 at 14:00 Zolpidem Tartrate 10 mg 10 mg HS PRN PO INSOMNIA Last administered on 23:23; Admin Dose 10 MG; Start 02/10/17 at 23:30 Ceftriaxone Sodium (Rocephin) 50 ml @ 100 mls/hr Q24H IVPB Last administered on 02/15/17 11:45; Admin Dose 100 MLS/HR; Start 02/11/17 at 11:30 Heparin Sodium (Porcine) (Heparin (5000 Units/0.5 ml)) 5,000 unit BID SC Last administered on 02/16/17 09:44; Admin Dose 5,000 UNIT; Start 02/13/17 at 21:00 Epoetin Keven (Epogen (Esrd)) 6,000 units MoWeFr@17 SC Last administered on 02/15 17:56; Admin Dose 6,000 UNITS; Start 02/15/17 at 17:00 JAROD NORIEGA NP Feb 16, 2017 14:16
[2017-02-16] MEDS: TAMSULOSIN (SR) 0.4 MG CAP PO SCH (20:29)
[2017-02-16] MEDS: ATORVASTATIN 10 MG TAB PO SCH (20:29)
[2017-02-16] MEDS: ROPINIROLE 0.25 MG TAB PO SCH (20:29)
[2017-02-16] MEDS: BALSAM PERU/CASTOR OIL 60 GM TUBE TOP SCH (20:30)
[2017-02-17] VITALS (17 sets, daily range): BP systolic 112–199; BP diastolic 56–88; PULSE 79–96; RESP 16–20
[2017-02-17] MEDS: ACCU-CHEK XX SCH (01:34)
[2017-02-17 07:52] LABS: ABNORMAL IP MESSAGE 1; BASOPHILS % 0.2 % (0.0-2.0); EOSINOPHILS % 0.5 % (0.0-7.0); HEMOGLOBIN 10.1 g/dl (14.0-18.0); LYMPHOCYTES # 0.6 10^3/ul (0.8-2.9); LYMPHOCYTES % 9.6 % (15.0-51.0); MEAN CORPUSCULAR HEMOGLOBIN 31.9 pg (29.0-33.0); MEAN CORPUSCULAR HGB CONC 31.6 g/dl (32.0-37.0); MEAN CORPUSCULAR VOLUME 100.9 fl (82.0-101.0); MEAN PLATELET VOLUME 11.6 fl (7.4-10.4); MONOCYTE # 0.6 10^3/ul (0.3-0.9); MONOCYTES % 9.1 % (0.0-11.0); NEUTROPHIL # 5.1 10^3/ul (1.6-7.5); NEUTROPHILS % 79.2 % (39.0-77.0); PLATELET COUNT 82 10^3/UL (140-415); POSITIVE DIFF @See below; RED BLOOD COUNT 3.17 10^6/ul (4.70-6.10); RED CELL DISTRIBUTION WIDTH 14.4 % (11.5-14.5); WHITE BLOOD COUNT 6.4 10^3/ul (4.8-10.8)
[2017-02-17] MEDS: INSULIN ASPART [NOVOLOG] 3 ML PEN SC SCH ×3 (08:00→17:35)
[2017-02-17] MEDS: SEVELAMER 800 MG TAB PO SCH ×3 (08:10→17:35)
[2017-02-17 08:24] LABS: CALCIUM 8.4 mg/dl (8.4-10.2); MAGNESIUM 1.9 mg/dl (1.7-2.5); PHOSPHORUS 6.1 mg/dl (2.5-4.9)
[2017-02-17] MEDS: FAMOTIDINE 20 MG TAB PO SCH (08:28)
[2017-02-17] MEDS: NIFEdipine (XL) 30 MG TAB PO SCH (08:28)
[2017-02-17] MEDS: PRASUGREL HYDROCHLORIDE 10 MG TABLET PO SCH (08:28)
[2017-02-17] MEDS: FEBUXOSTAT 40 MG TABLET PO SCH (08:28)
[2017-02-17] MEDS: MULTIVIT/CA CARB/B CMPLX/FA TAB PO SCH (08:28)
[2017-02-17] MEDS: FISH OIL 1,000 MG CAP PO SCH (08:29)
[2017-02-17] MEDS: DOCUSATE SODIUM 100 MG CAP PO SCH (08:29)
[2017-02-17 08:30] LABS: POTASSIUM 5.3 mmol/L (3.5-5.1)
[2017-02-17] MEDS: NICOTINE (14 MG/24 HR) PATCH TRANSDERM SCH (08:30)
[2017-02-17] MEDS: BALSAM PERU/CASTOR OIL 60 GM TUBE TOP SCH (08:30)
[2017-02-17] MEDS: ISOSORBIDE MONONITRATE(SR)60 MG TAB PO SCH (08:30)
[2017-02-17 08:31] LABS: CREATININE 9.57 mg/dl (0.61-1.24)
[2017-02-17] MEDS: POLYETHYLENE GLYCOL 17 GM PACKET PO SCH (08:31)
[2017-02-17] MEDS: HEPARIN 5,000 UNIT/0.5 ML VIAL SC SCH (08:40)
[2017-02-17] MEDS: CEFTRIAXONE 1 GM/50 ML (PMX) 50 ML IVPB SCH ×2 (11:30→17:36)
--- NOTE | 2017-02-17 12:33 | PN ---
DATE: 02/17/2017 SUBJECTIVE: The patient is stable. No events overnight, is scheduled for hemodialysis today. OBJECTIVE: VITAL SIGNS: Blood pressure is 106/90, temperature 98.6, pulse 83, respiration 18. HEENT: Head is normocephalic. NECK: Supple. HEART: Regular rate. LUNGS: Show diminished breath sounds at base. ABDOMEN: Soft, nontender to palpation. No rebound or guarding. EXTREMITIES: Negative for clubbing, cyanosis, edema. DERMATOLOGIC: No rashes. MUSCULOSKELETAL: No joint effusions. NEUROLOGIC: No change in exam. MEDICATIONS: The patient's medications have been reviewed. LABORATORY DATA: Shows white count 6.4, hemoglobin 10.1, hematocrit 32.0, platelet count . So dium 134, potassium 5.3, chloride 116, creatinine 9.57. ASSESSMENT AND PLAN: 1. End-stage renal disease. Plan for hemodialysis today. Will dialyze for 3 hours on a 2K bath, c alcium 2.5. 2. Hyperkalemia. The patient will be dialyzed on a 2 potassium bath. 3. Anemia. Continue to monitor hemoglobin and hematocrit levels. 4. Mineral bone disorder. Continue to monitor calcium and phosphorus levels. 5. Congestive heart failure. Continue ultrafiltration dialysis. 6. Hypertension. Continue current blood pressure regimen. 7. Sepsis bacteremia. The patient is to complete antibiotic course. 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 9. Diabetes. Continue Accu-Cheks, insulin sliding scale. Dictated By: CORIE MALIK/CORA Conf#: [id number] DID#: [id number]
--- NOTE | 2017-02-17 15:27 | PDOCDIS ---
Discharge Instructions DIAGNOSIS Discharge Diagnosis B/L LE weakness. Viral meningitis. CONDITION Patient Condition: Stable HOME CARE INSTRUCTIONS: Special Diet: RENAL/CARDIAC OTHER ORDERS: Other Orders: 1. Medications as per medication list. 2. Renal, cardiac diet. 3. Activities as per the rehab team. ALICIA ISAACS NP Feb 17, 2017 15:27
[2017-02-17] MEDS: EPOETIN 3000 UNITS/1 ML INJ (ESRD) SC SCH (17:35)
--- NOTE | 2017-02-17 19:22 | CONS ---
Date/Time of Note Date/Time of Note DATE: 02/17/17 TIME: 19:22 Assessment/Plan Assessment/Plan Chief Complaint/Hosp Course SUBJECTIVE DATA: No acute changes. The patient is awake, looks comfortable. No fevers. ANTIMICROBIALS: Rocephin. MICROBIOLOGY: Blood culture on February 07 grew Klebsiella pneumonia. Urine culture grew Klebsiella and Proteus mirabilis. Repeat bld cx negative INDWELLINGS: Right chest PermCath, [place]. PHYSICAL EXAMINATION: GENERAL: This is an obese, chronically ill-appearing, elderly man, who is in no distress. HEENT: Head atraumatic, normocephalic. Sclerae anicteric. Buccal mucosa dry. NECK: Supple. CHEST: Chest rise symmetrical. Breath sounds clear. Diminished at the bases. HEART: S1, S2. ABDOMEN: Soft, bowel sounds present. EXTREMITIES: Without cyanosis. ASSESSMENT: 1. Status post systemic inflammatory response syndrome with low- grade fevers and chills. 2. Multidrug resistant urinary tract infection with bacteremia, repeat blood cultures negative. 3. 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 Patient received IVIG, neurology follows him. 4. Diabetes. 5. End-stage renal disease, hemodialysis dependent. PLAN: The patient remains stable. Repeat bld cx negative, continue abx for 5 more days, may dc on Gentamicin with HD or oral Levaquin to complete the course Problems: Consultation Date/Type/Reason Admit Date/Time Jan 29, 2017 at 19:38 Initial Consult Date 01/30/17 Type of Consultation: ID Exam/Review of Systems Vital Signs Vitals Vital Signs Date Time Temp Pulse Resp B/P Pulse Ox O2 Delivery O2 Flow Rate FiO2 02/17/17 19:07 3.0 02/17/17 16:30 85 02/17/17 15:46 98.7 19 145/67 96 02/17/17 08:10 Nasal Cannula Intake and Output 02/16/17 02/16/17 02/17/17 15:00 23:00 07:00 Intake Total 800 ml 750 ml Output Total 200 ml Balance 600 ml 750 ml Results Result Diagram: 02/17/17 0657 02/17/17 0657 Results 24 hrs Laboratory Tests Test 02/16/17 20:26 02/17/17 06:57 02/17/17 08:03 02/17/17 12:09 Bedside Glucose 117 77 135 White Blood Count 6.4 # Red Blood Count 3.17 L Hemoglobin 10.1 L Hematocrit 32.0 L Mean Corpuscular Volume 100.9 Mean Corpuscular Hemoglobin 31.9 Mean Corpuscular Hemoglobin Concent 31.6 L Red Cell Distribution Width 14.4 Platelet Count 82 L Mean Platelet Volume 11.6 H Neutrophils % 79.2 H Lymphocytes % 9.6 L Monocytes % 9.1 Eosinophils % 0.5 Basophils % 0.2 Nucleated Red Blood Cells % 0.0 Neutrophils # 5.1 Lymphocytes # 0.6 L Monocytes # 0.6 Eosinophils # 0.0 Basophils # 0.0 Nucleated Red Blood Cells # 0.0 Sodium Level 134 L Potassium Level 5.3 H Chloride Level 102 Carbon Dioxide Level 20 L Anion Gap 17 H Blood Urea Nitrogen 116 H Creatinine 9.57 H Glucose Level 80 Calcium Level 8.4 Phosphorus Level 6.1 H Magnesium Level 1.9 Test 02/17/17 17:31 Bedside Glucose 132 Medications Medications Current Medications Ondansetron HCl (Zofran Inj) 4 mg Q6 PRN IV NAUSEA AND/OR VOMITING Last administered on 02/04/17 20:49; Admin Dose 4 MG; Start 01/30/17 at 00:00 Acetaminophen (Tylenol Tab) 650 mg Q6H PRN PO PAIN AND OR ELEVATED TEMP Last administered on 02/13/17 06:00; Admin Dose 650 MG; Start 01/30/17 at 00:00 Clonidine (Catapres) 0.1 mg TID PRN PO FOR SBP >160 Last administered on 00:11; Admin Dose 0.1 MG; Start 01/30/17 at 00:00 Ergocalciferol (Drisdol) 50,000 unit Q7D PO Last administered on 02/15/17 11: 40; Admin Dose 50,000 UNIT; Start 02/01/17 at 09:00 Febuxostat (Uloric) 40 mg DAILY PO Last administered on 02/17/17 08:28; Admin Dose 40 MG; Start 01/30/17 at 09:00 Hydralazine HCl (Apresoline) 50 mg BID PO Last administered on 02/17/17 08:30 ; Admin Dose 50 MG; Start 01/30/17 at 00:00 Isosorbide Mononitrate (Imdur) 60 mg DAILY PO Last administered on 02/17/17 08 :30; Admin Dose 60 MG; Start 01/30/17 at 09:00 Prasugrel (Effient) 10 mg DAILY PO Last administered on 02/17/17 08:28; Admin Dose 10 MG; Start 01/30/17 at 09:00 Ropinirole HCl (Requip) 0.25 mg HS PO Last administered on 02/16/17 20:29; Admin Dose 0.25 MG; Start 01/30/17 at 21:00 Tamsulosin HCl (Flomax) 0.4 mg DAILY@21 PO Last administered on 02/16/17 20:29 ; Admin Dose 0.4 MG; Start 01/30/17 at 21:00 Fish Oil (Fish Oil) 1,000 mg BID PO Last administered on 02/17/17 08:29; Admin Dose 1,000 MG; Start 01/31/17 at 09:30 Atorvastatin Calcium (Lipitor) 10 mg QHS PO Last administered on 02/16/17 20: 29; Admin Dose 10 MG; Start 01/30/17 at 21:00 Multivit/Ca Carb/ B Cmplx/FA/Prenat (Paulina-Chrissy) 1 tab DAILY PO Last administered on 02/17/17 08:28; Admin Dose 1 TAB; Start 01/30/17 at 09:00 Carvedilol (Coreg) 3.125 mg BID PO Last administered on 02/17/17 08:30; Admin Dose 3.125 MG; Start 01/30/17 at 00:00 Miscellaneous Information 1 ea NOTE XX ; Start 01/30/17 at 01:00 Glucose (Glutose) 15 gm Q15M PRN PO DECREASED GLUCOSE; Start 01/30/17 at 01:00 Glucose (Glutose) 22.5 gm Q15M PRN PO DECREASED GLUCOSE; Start 01/30/17 at 01: 00 Dextrose (D50w Syringe) 25 ml Q15M PRN IV DECREASED GLUCOSE; Start 01/30/17 at 01:00 Dextrose (D50w Syringe) 50 ml Q15M PRN IV DECREASED GLUCOSE; Start 01/30/17 at 01:00 Glucagon (Glucagen) 1 mg Q15M PRN IM DECREASED GLUCOSE; Start 01/30/17 at 01:00 Glucose (Glutose) 15 gm Q15M PRN BUCCAL DECREASED GLUCOSE; Start 01/30/17 at 01 :00 Diagnostic Test (Pha) (Accu-Chek) 1 ea 02 XX Last administered on 02/15/17 02: 00; Admin Dose 1 EA; Start 01/31/17 at 02:00 Nifedipine (Procardia Xl) 30 mg BID PO Last administered on 02/17/17 08:28; Admin Dose 30 MG; Start 02/01/17 at 21:00 Nicotine (Nicoderm 14 Mg/ 24hr) 1 patch DAILY TRANSDERM Last administered on 08:30; Admin Dose 1 PATCH; Start 02/05/17 at 09:00 Famotidine (Pepcid) 20 mg DAILY PO Last administered on 02/17/17 08:28; Admin Dose 20 MG; Start 02/05/17 at 12:00 Docusate Sodium (Colace) 100 mg BID PO Last administered on 02/17/17 08:29; Admin Dose 100 MG; Start 02/07/17 at 15:00 Polyethylene Glycol (Miralax) 17 gm BID PO Last administered on 02/17/17 08:31 ; Admin Dose 17 GM; Start 02/07/17 at 21:00 Bisacodyl (Dulcolax) 10 mg DAILY PRN PO CONSTIPATION; Start 02/07/17 at 16:30 Acetaminophen/ Hydrocodone Bitart ([place] (5/325)) 2 tab Q4H PRN PO pain; Start 02/08/17 at 14:00 Acetaminophen/ Hydrocodone Bitart ([place] (5/325)) 1 tab Q4H PRN PO pain Last administered on 02/15/17 00:10; Admin Dose 1 TAB; Start 02/08/17 at 14:00 Zolpidem Tartrate 10 mg 10 mg HS PRN PO INSOMNIA Last administered on 23:23; Admin Dose 10 MG; Start 02/10/17 at 23:30 Ceftriaxone Sodium (Rocephin) 50 ml @ 100 mls/hr Q24H IVPB Last administered on 02/17/17 17:36; Admin Dose 100 MLS/HR; Start 02/11/17 at 11:30 Heparin Sodium (Porcine) (Heparin (5000 Units/0.5 ml)) 5,000 unit BID SC Last administered on 02/17/17 08:40; Admin Dose 5,000 UNIT; Start 02/13/17 at 21:00 Epoetin Keven (Epogen (Esrd)) 6,000 units MoWeFr@17 SC Last administered on 02/17 17:35; Admin Dose 6,000 UNITS; Start 02/15/17 at 17:00 JAROD NORIEGA NP Feb 17, 2017 19:22
--- NOTE | 2017-02-17 20:24 | DS ---
DATE OF ADMISSION: 01/29/2017 DATE OF DISCHARGE: 02/17/2017 DISPOSITION: Transferred to [facility] FINAL DIAGNOSES: 1. 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 2. 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 End-stage renal disease, on hemodialysis. 4. Status post sepsis with underlying urinary tract infection and Klebsiella pneumoniae bacteremia. 5. Diabetes mellitus. 6. Coronary artery disease. 7. Dyslipidemia. 8. Anemia of chronic kidney disease. 9. Obesity. 10. Nicotine use. 11. Benign prostatic hypertrophy. CONSULTANTS: 1. Arvind Galindo DO, nephrology. 2. Rene Paulino MD, neurology. 3. Nohelia George MD, neurology. 4. Inga Sequeira MD, neurology. 5. Dave Morley MD, infectious diseases. HOSPITAL COURSE: This is an 81-year-old male with past medical history of end-stage renal disease on hemodialysis, essential hypertension, and dyslipidemia who presented to the emergency department complaining of bilateral lower extremity weakness. The patient was having a relatively sudden onset of bilateral lower extremity weakness a few days prior to the day of admission. The patient denied any upper extremity weakness, slurred speech, blurred vision, headache, seizure-like activity, chest pain or shortness of breath. In the emergency room, the patient underwent imaging studies of the brain that was negative for any acute abnormalities. The patient had elevated blood pressure readings and also the patient was hyperkalemic with a potassium of 6.1. Therefore, the patient was admitted to inpatient setting for further evaluation. The patient was admitted to inpatient telemetry floor. Nephrology consult was obtained for hemodialysis because the patient missed his hemodialysis and the patient was hyperkalemic. Regarding his new onset bilateral lower extremity weakness, the patient's brain CT scan was negative as mentioned earlier. The etiology of the patient's bilateral lower extremity weakness that was relatively sudden in onset was unclear. Hence, neurology consult was obtained. The patient underwent multiple imaging studies of the brain and spine. The patient's brain imaging studies were negative. The patient's lumbar spine CT showed multilevel central canal and neural foraminal stenosis. However, the imaging studies were not consistent with the patient's symptomatology. Hence neurology ordered lumbar puncture. The patient's CSF analysis was suggestive of viral meningitis. Hence Infectious Disease was involved in the patient's case. The patient had West Nile virus serology, which showed West Nile virus IgM antibody negative and IgG antibody positive. The patient was not treated with any antivirals. The patient's symptoms persisted. Hence the patient was given a trial of high- dose IV steroids with minimal improvement in the patient's bilateral lower extremity weakness. Hence, the patient received IV immunoglobulin as per Neurology recommendations. Physical therapy was continuing to follow the patient. Nevertheless, all the efforts, the patient never had his bilateral lower extremity strength return back to baseline. Hence the patient will be transferred to a rehabilitation facility for further rehabilitation. The etiology of the patients symptoms could be probably secondary to demyelinating polyneuropathy such as chronic inflammatory demyelinating polyneuropathy (CIDP). However, this needs to be confirmed with outpatient EMG/NCV The patient has underlying end-stage renal disease. The patient was maintained on hemodialysis as per Nephrology. The patient has underlying diabetes mellitus. He was maintained on sliding scale insulin. The patient was noticed to have a hemoglobin A1c of 4.9. The patient has underlying essential hypertension. He was maintained on antihypertensives for the same. The patient has underlying CAD. The patient was maintained on antiplatelet therapy. He has history of underlying dyslipidemia. He was maintained on statins for the same. He has underlying anemia of chronic kidney disease. He was maintained on Epogen as per Nephrology. The patient started having febrile illness since 02/11/2017. [place] cultures were sent on this patient. The patient's blood culture that was done on 02/07/2017, showed positive Klebsiella pneumoniae. The patient had a urine culture done on 02/09/2017, that showed Klebsiella pneumoniae, as well as Proteus mirabilis. The patient was treated with antibiotics as per Infectious Diseases. The patient's repeat blood cultures remain negative. The patient had no evidence of any underlying septic shock. The patient had a prolonged hospital course because of the complexity of the patient's symptomatology, the need for multiple diagnostic studies to evaluate the patient's underlying problem, the slow progress in the patient's symptomatology and the sepsis that complicated the patient's hospitalization. The patient is stable to be discharged. However, the patient needs extensive physical therapy. Therefore, the patient's family wanted to try acute rehabilitation unit at [facility]. Therefore, the patient will be transferred to acute rehabilitation unit at [facility]. DISCHARGE DISPOSITION/PLAN: [facility] The patient will take medications as per medication list which are listed below. The patient will follow a renal, cardiac, carbohydrate-controlled diet. Activities will be as per the discretion of the rehabilitation team. DISCHARGE CONDITION: Stable. DISCHARGE MEDICATIONS: 1. Coreg 3.125 mg p.o. b.i.d. 2. Vitamin D2 at 50,000 units every 7 days. 3. Uloric 40 mg p.o. daily. 4. Hydralazine 50 mg p.o. b.i.d. 5. Vascepa 1 gram p.o. 4 times daily. 6. Isosorbide mononitrate 60 mg p.o. daily. 7. Nifedipine ER 30 mg p.o. daily. 8. Effient 10 mg p.o. daily. 9. Ropinirole 0.25 mg p.o. at bedtime. 10. Simvastatin 20 mg p.o. at bedtime. 11. Tamsulosin 0.4 mg p.o. daily. 12. Nephro-Chrissy 1 tablet p.o. daily. 13. Nicotine patch 14 mg per 24 hour daily. 14. Ceftriaxone 1 gram IV piggyback q.24 hours until 02/23/2017. 15. Heparin 5000 mg subcutaneous b.i.d. 16. Epogen 6000 units subcutaneous on Wednesday, Wednesday, and Wednesday. 17. Polyethylene glycol 17 grams p.o. b.i.d. 18. Fish oil 1000 mg p.o. b.i.d. 19. Insulin as per sliding scale. PERTINENT LABORATORY AND DIAGNOSTIC DATA: 1. Brain CT scan on admission: No acute intracranial abnormalities. 2. Lumbar spine CT: No acute fracture or subluxation. Mild-to- moderate multilevel degenerative disc disease. There is multilevel central canal and neural foraminal stenosis. Aortic atherosclerosis. Bladder diverticulum. Enlarged prostate. 3. Thoracic spine CT: Fsya-ep-kzmrndgy multilevel degenerative disc disease. Mild bibasilar atelectasis and small left pleural effusion. 4. Blood culture x1 from 02/07/2017. Positive for Klebsiella pneumonia. 5. Repeat blood cultures x2 from 02/12/2017: Negative. 6. Urine culture from 02/09/2017. Positive for Klebsiella pneumoniae and Proteus mirabilis. 7. CSF analysis: CSF WBC 45, CSF glucose 107, CSF total protein 66. 8. West Nile virus IgG antibody 5.54, [place] virus IgM antibody is less than 0.90. 9. Latest CBC: WBC 6.4, hemoglobin 10.1, hematocrit 32, platelet count 82. 10. Latest BMP: Sodium 134, potassium 5.6, chloride 102, carbon dioxide 20, anion gap of 17, BUN 116, creatinine 9.5, glucose 80, calcium 8.4, phosphorus 6.1, magnesium 1.9. 11. Hemoglobin A1c 4.9. 12. Fasting lipid panel: Triglycerides 63, total cholesterol 83, LDL 44, HDL 26. At this time I would like to thank all the consultants for seeing the patient, doing the necessary procedures, and providing clinical recommendations. The case was discussed with Dr. Willett. Approximately 40 minutes was spent on coordinating the discharge on this patient. Dictated By: Issac Jimenes NP /waldo/usn /Document#: [id number] MANDY
== END 2017-02-17 20:40 | DRG 73 ==
LOC: E/R 17:17 → MS4 19:38
PROVIDERS: ADMIT Internal Medicine; ATTEND Internal Medicine
PROC: 5A1D70Z Performance of Urinary Filtration, Intermittent, Less than 6 Hours Per Day (ICD-10-PCS; 2017-01-31)
PROC: 00JU3ZZ Inspection of Spinal Canal, Percutaneous Approach (ICD-10-PCS; principal; 2017-02-05)
DX: G61.81 Chronic inflammatory demyelinating polyneuritis (principal); N18.6 End stage renal disease; A41.59 Other Gram-negative sepsis; A92.30 West Nile virus infection, unspecified; I13.2 Hypertensive heart and chronic kidney disease with heart failure and with stage 5 chronic kidney disease, or end stage renal disease; A87.8 Other viral meningitis; E83.9 Disorder of mineral metabolism, unspecified; N39.0 Urinary tract infection, site not specified; E87.5 Hyperkalemia; M48.04 Spinal stenosis, thoracic region; D63.1 Anemia in chronic kidney disease; I50.9 Heart failure, unspecified; Z99.2 Dependence on renal dialysis; I16.0 Hypertensive urgency; I25.10 Atherosclerotic heart disease of native coronary artery without angina pectoris; E78.5 Hyperlipidemia, unspecified; F17.210 Nicotine dependence, cigarettes, uncomplicated; M89.9 Disorder of bone, unspecified; R91.1 Solitary pulmonary nodule; M25.78 Osteophyte, vertebrae; M47.896 Other spondylosis, lumbar region; D72.829 Elevated white blood cell count, unspecified; Z16.24 Resistance to multiple antibiotics; E66.9 Obesity, unspecified; Z68.32 Body mass index [BMI] 32.0-32.9, adult; N40.0 Benign prostatic hyperplasia without lower urinary tract symptoms; B96.4 Proteus (mirabilis) (morganii) as the cause of diseases classified elsewhere; E11.42 Type 2 diabetes mellitus with diabetic polyneuropathy; E11.51 Type 2 diabetes mellitus with diabetic peripheral angiopathy without gangrene; E11.22 Type 2 diabetes mellitus with diabetic chronic kidney disease; G72.9 Myopathy, unspecified; E11.69 Type 2 diabetes mellitus with other specified complication
CPT/HCPCS: 36415; 70450; 71010; 72128; 72131; 72146; 72148; 74000; 80048; 80053; 80061; 81001; 82550; 82553; 82945; 82962; 83036; 83735; 84100; 84157; 84439; 84443; 84484; 85025; 85610; 85730; 86788; 86789; 87040; 87070; 87086; 89051; 90935; 93005; 96374; 96375; 97110; 97162; 97530; J1940; J0360; J0696; J0886; J1100; J1200; J1566; J1644; J1720; J1815; J2270; J2405; J2543; J2930; J7070

== ENCOUNTER 2017-02-17 18:11 | Inpatient (IN) | payer MEDICARE, OTHER ==
[~2017-02-17] VITALS: Ht 172.7 cm; Wt 92.6 kg
[~2017-02-17 18:11] MED LIST changes: -ASPI-664 PO; +CLON-379 PO; -FOLI-49 PO; -FURO40TA4 PO; +ICOS1CAP PO; +ISOS60TA PO; +NEPHRO-VITE PO; +ROPI0.25 PO
[2017-02-17] MEDS: ROPINIROLE 0.25 MG TAB PO SCH (23:00)
[2017-02-17] MEDS ORDERED: ACETAMINOPHEN 325 MG TAB PO PRN (23:15)
[2017-02-17] MEDS ORDERED: DEXTROSE 50% 50 ML SYRINGE IV PRN ×2 (23:15)
[2017-02-17] MEDS: Insulin NOVOLOG SS MILD Algorithm (SS with meals and bedtime) SC SCH (23:15)
[2017-02-17] MEDS ORDERED: GLUCOSE GEL 15 GRAM TUBE BUCCAL PRN (23:15)
[2017-02-17] MEDS ORDERED: GLUCAGON 1 MG INJ IM PRN (23:15)
[2017-02-17] MEDS ORDERED: GLUCOSE GEL 15 GRAM TUBE PO PRN ×2 (23:15)
[2017-02-17] MEDS ORDERED: BISACODYL (EC) 5 MG TAB PO PRN (23:30)
[2017-02-17] MEDS ORDERED: HYDROCODONE/APAP (5/325) TAB PO PRN ×2 (23:30)
[2017-02-17] MEDS: BALSAM PERU/CASTOR OIL 60 GM TUBE TOP SCH (23:30)
[2017-02-17 23:40] VITALS: BP_SYST 167; BP_SYST 72; BP_DIAS 167; BP_DIAS 72; RESP 18
[2017-02-18 00:20] VITALS: Ht 172.7 cm; Wt 92.6 kg
[2017-02-18] MEDS: POLYETHYLENE GLYCOL 17 GM PACKET PO SCH ×3 (00:46→21:14)
[2017-02-18] MEDS: TAMSULOSIN (SR) 0.4 MG CAP PO SCH ×2 (00:47→21:14)
[2017-02-18] MEDS: NIFEdipine (XL) 30 MG TAB PO SCH ×3 (00:47→21:15)
[2017-02-18] MEDS: ATORVASTATIN 10 MG TAB PO SCH ×2 (00:47→21:14)
[2017-02-18] MEDS: FISH OIL 1,000 MG CAP PO SCH ×3 (00:47→21:13)
[2017-02-18] MEDS: DOCUSATE SODIUM 100 MG CAP PO SCH ×3 (00:48→21:24)
[2017-02-18] MEDS: HEPARIN 5,000 UNIT/0.5 ML VIAL SC SCH ×3 (00:49→21:24)
[2017-02-18] MEDS ORDERED: ACCUCHECK AT 2AM (Patients on SS coverage) XX SCH (02:00)
[2017-02-18 03:36] VITALS: BP 174/76
[2017-02-18 07:00] VITALS: BP 198/91; RESP 18
[2017-02-18] MEDS: Insulin NOVOLOG SS MILD Algorithm (SS with meals and bedtime) SC SCH ×2 (07:35→12:00)
[2017-02-18] MEDS: SEVELAMER 800 MG TAB PO SCH ×3 (08:34→17:45)
[2017-02-18] MEDS: FAMOTIDINE 20 MG TAB PO SCH (08:35)
[2017-02-18] MEDS: MULTIVIT/CA CARB/B CMPLX/FA TAB PO SCH (08:36)
[2017-02-18] MEDS: ISOSORBIDE MONONITRATE(SR)60 MG TAB PO SCH (08:38)
[2017-02-18] MEDS: NICOTINE (14 MG/24 HR) PATCH TRANSDERM SCH (08:38)
[2017-02-18] MEDS: BALSAM PERU/CASTOR OIL 60 GM TUBE TOP SCH ×2 (08:38→21:14)
[2017-02-18] MEDS: PRASUGREL HYDROCHLORIDE 10 MG TABLET PO SCH (08:39)
[2017-02-18 10:00] VITALS: BP 160/75; PULSE 79
[2017-02-18] MEDS: FEBUXOSTAT 40 MG TABLET PO SCH (12:25)
[2017-02-18] MEDS: CEFTRIAXONE 1 GM/50 ML (PMX) 50 ML IVPB SCH (12:26)
--- NOTE | 2017-02-18 12:27 | CONS ---
Date/Time of Note Date/Time of Note DATE: 02/18/17 TIME: 12:27 Assessment/Plan Assessment/Plan Chief Complaint/Hosp Course 81-year-old male, who was transferred to rehabilitation unit for further rehabilitation following an onset of lower extremity weakness. 1. 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 -Status post treatment with pulse dose steroids followed by IVIG. -Continue PT/OT -Follow-up with outpatient studies EMG/NCV to evaluate for possible demyelinating polyneuropathy such as CIDP 2. 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 Hypertension, poorly controlled. -Uptitrate Coreg to 6.25. Will monitor blood pressure closely and will adjust as indicated. 4. End-stage renal disease, on hemodialysis. -Follow-up with nephrology recommendations. 5. Status post sepsis bacteremia with Multidrug resistant urinary tract infection. UA still showing evidence of infection. -On abx. Follow-up with ID recommendations. 6. Coronary artery disease. -Continue home medications. 7. Dyslipidemia. -Continue statin/fish oil. 8. Anemia of chronic kidney disease. -HH stable. Will monitor. 9. Type 2 diabetes mellitus. Latest A1c 4.9 with good glycemic control. -Stable. No need for insulin in-house. We will start patient on Tradjenta as metformin is not a good choice secondary to renal clearance. -Accu-Cheks twice daily and carbohydrate controlled diet. 10. Benign prostatic hypertrophy. -Continue Flomax. 11. Obesity. -Weight reduction advised 12. Nicotine abuse. -Cessation advised. Prophylaxis: Ambulation/SCDs Approximally 60 minutes was spent on this consultation. Patient was seen in collaboration with . Problems: Consultation Date/Type/Reason Admit Date/Time Feb 17, 2017 at 20:40 Reason for Consultation Internal medicine Hx of Present Illness This is a 81-year-old male with a past medical history of end-stage renal disease on hemodialysis, essential hypertension, and dyslipidemia who was admitted to [facility] for evaluation of bilateral upper extremity weakness. She was evaluated by neurology service and imaging studies were not consistent with patient's symptomatology. Therefore LP was ordered and was suggestive for viral meningitis as all other. Patient was also noted with positive IgG concerning for exposure to West Nile virus serology and was treated with IV steroids and IVIG per neurology recommendation. Patient was evaluated by physical therapy. However, he continued to have bilateral lower extremity weakness which did not improve. Therefore, patient was accepted to ARU for further complex interdisciplinary rehabilitation. Currently, patient denies any chest pain, shortness of breath, headache, any new weakness, vision changes, speech difficulties, fever, chills or other constitutional symptoms. No labs available for review. However, a urine analysis is positive for urinary tract infection. A 12 point review of system was assessed and is negative other than what is mentioned in the HPI. Past Medical History See HPI Past Surgical History see HPI Social History Current nicotine use. Denies alcohol or illicit drug use. Smoking Status: Current every day smoker Exam/Review of Systems Vital Signs Vitals Vital Signs Date Time Temp Pulse Resp B/P Pulse Ox O2 Delivery O2 Flow Rate FiO2 02/18/17 07:00 98.5 89 18 198/91 95 Intake and Output 02/17/17 02/17/17 02/18/17 15:00 23:00 07:00 Intake Total 200 ml Output Total 500 ml Balance -300 ml Exam General: Elderly male, not in any acute distress . HEENT: Normocephalic, Atraumatic, No laceration or hematoma; Eyes: PEERL, Conjunctiva clear, Anicteric sclera Neck: Supple without any lymphadenopathy, nontender, no JVD, no carotid bruits, trachea midline, no thyromegaly Cardiac: S1, S2 auscultated, regular rhythm and rate, no mumurs or gallop Pulmonary: Normal respiratory effort. Chest clear to auscultation bilaterally, no adventitious breath sounds GI: Abdomen normal to inspection. Soft, non tender, non- distended, no masses, no rebound tenderness or guarding. Bowel sounds active on all four quadrants Genitourinary: Deferred Extremities: With severe weakness to bilateral lower extremities. No cyanosis, clubbing, or edema. Pulses [2+] bilaterally. No focal weakness appreciated. Neurologic: Alert to person, place, time, and situation. Affect appropriate, intact sensation. Skin: Clean,dry, and intact. No ecchymosis, no rashes, or lesions Results Results 24 hrs Laboratory Tests Test 02/18/17 00:58 02/18/17 08:10 Bedside Glucose 109 96 Medications Medications Current Medications Polyethylene Glycol (Miralax) 17 gm BID PO Last administered on 02/18/17 08:38 ; Admin Dose 17 GM; Start 02/17/17 at 23:00 Prasugrel (Effient) 10 mg DAILY PO Last administered on 02/18/17 08:39; Admin Dose 10 MG; Start 02/18/17 at 09:00 Ropinirole HCl (Requip) 0.25 mg HS PO ; Start 02/17/17 at 23:00 Tamsulosin HCl (Flomax) 0.4 mg DAILY@21 PO Last administered on 02/18/17 00:47 ; Admin Dose 0.4 MG; Start 02/17/17 at 23:00 Zolpidem Tartrate (Ambien) 10 mg HS PRN PO INSOMNIA; Start 02/17/17 at 23:15 Miscellaneous Information 1 ea NOTE XX ; Start 02/17/17 at 23:15 Glucose (Glutose) 15 gm Q15M PRN PO DECREASED GLUCOSE; Start 02/17/17 at 23:15 Glucose (Glutose) 22.5 gm Q15M PRN PO DECREASED GLUCOSE; Start 02/17/17 at 23: 15 Dextrose (D50w Syringe) 25 ml Q15M PRN IV DECREASED GLUCOSE; Start 02/17/17 at 23:15 Dextrose (D50w Syringe) 50 ml Q15M PRN IV DECREASED GLUCOSE; Start 02/17/17 at 23:15 Glucagon (Glucagen) 1 mg Q15M PRN IM DECREASED GLUCOSE; Start 02/17/17 at 23:15 Glucose (Glutose) 15 gm Q15M PRN BUCCAL DECREASED GLUCOSE; Start 02/17/17 at 23 :15 Multivit/Ca Carb/ B Cmplx/FA/Prenat (Paulina-Chrissy) 1 tab DAILY PO Last administered on 02/18/17 08:36; Admin Dose 1 TAB; Start 02/18/17 at 09:00 Nicotine (Nicoderm 14 Mg/ 24hr) 1 patch DAILY TRANSDERM Last administered on 08:38; Admin Dose 1 PATCH; Start 02/18/17 at 09:00 Nifedipine (Procardia Xl) 30 mg BID PO Last administered on 02/18/17 08:35; Admin Dose 30 MG; Start 02/17/17 at 23:00 Heparin Sodium (Porcine) (Heparin (5000 Units/0.5 ml)) 5,000 unit Q12 SC Last administered on 02/18/17 08:43; Admin Dose 5,000 UNIT; Start 02/17/17 at 23:00 Hydralazine HCl (Apresoline) 50 mg BID PO Last administered on 02/18/17 08:36 ; Admin Dose 50 MG; Start 02/17/17 at 23:00 Acetaminophen/ Hydrocodone Bitart ([place] (5/325)) 2 tab Q4H PRN PO PAIN; Start 02/17/17 at 23:30 Acetaminophen/ Hydrocodone Bitart ([place] (5/325)) 1 tab Q4H PRN PO PAIN; Start 02/17/17 at 23:30 Isosorbide Mononitrate (Imdur) 60 mg DAILY PO Last administered on 02/18/17 08 :38; Admin Dose 60 MG; Start 02/18/17 at 09:00 Diagnostic Test (Pha) (Accu-Chek) 1 ea 02 XX ; Start 02/18/17 at 02:00 Fish Oil (Fish Oil) 1,000 mg BID PO Last administered on 02/18/17 08:36; Admin Dose 1,000 MG; Start 02/17/17 at 23:15 Docusate Sodium (Colace) 100 mg BID PO Last administered on 02/18/17 08:36; Admin Dose 100 MG; Start 02/17/17 at 23:15 Epoetin Keven (Epogen (Esrd)) 6,000 units MoWeFr@17 SC ; Start 02/19/17 at 17:00 Ergocalciferol (Drisdol) 50,000 unit Tu@09 PO ; Start 02/23/17 at 09:00 Famotidine (Pepcid) 20 mg DAILY PO Last administered on 02/18/17 08:35; Admin Dose 20 MG; Start 02/18/17 at 09:00 Febuxostat (Uloric) 40 mg DAILY PO ; Start 02/18/17 at 09:00 Acetaminophen (Tylenol Tab) 650 mg Q6H PRN PO PAIN AND OR ELEVATED TEMP; Start 02/17/17 at 23:15 Atorvastatin Calcium (Lipitor) 10 mg DAILY@21 PO Last administered on 00:47; Admin Dose 10 MG; Start 02/17/17 at 23:15 Bisacodyl (Dulcolax) 10 mg DAILY PRN PO CONSTIPATION; Start 02/17/17 at 23:30 Carvedilol 3.125 mg 3.125 mg BID PO Last administered on 02/18/17t 08:39; Admin Dose 3.125 MG; Start 02/17/17 at 23:30 Ceftriaxone Sodium (Rocephin) 50 ml @ 100 mls/hr Q24H IVPB ; Start 02/18/17 at 11:30; Stop 02/23/17 at 12:30 Clonidine (Catapres) 0.1 mg TID PRN PO SBP ABOVE 160mmHg; Start 02/17/17 at 23: 30 HEATH MAYBERRY NP Feb 18, 2017 12:27
[2017-02-18 13:00] VITALS: BP 130/70; PULSE 80; RESP 18
--- NOTE | 2017-02-18 13:48 | CONS ---
Date/Time of Note Date/Time of Note DATE: 02/18/17 TIME: 13:47 Assessment/Plan Assessment/Plan Chief Complaint/Hosp Course SUBJECTIVE DATA: No acute changes. The patient isalert, up in a wc with PT, at bedside, no fevers MICROBIOLOGY: Blood culture on February 07 grew Klebsiella pneumonia. Urine culture grew Klebsiella and Proteus mirabilis. Repeat bld cx negative INDWELLINGS: Right chest PermCath, [place]. PHYSICAL EXAMINATION: GENERAL: This is an obese, chronically ill-appearing, elderly man, who is in no distress. HEENT: Head atraumatic, normocephalic. Sclerae anicteric. Buccal mucosa dry. NECK: Supple. CHEST: Chest rise symmetrical. Breath sounds clear. Diminished at the bases. HEART: S1, S2. ABDOMEN: Soft, bowel sounds present. EXTREMITIES: Without cyanosis. ASSESSMENT: 1. Status post systemic inflammatory response syndrome with low- grade fevers and chills. 2. Multidrug resistant urinary tract infection with bacteremia, repeat blood cultures negative. 3. 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 Patient received IVIG, neurology follows him. 4. Diabetes. 5. End-stage renal disease, hemodialysis dependent. PLAN: The patient remains stable. Completing abx, continue PT [facility] staff Problems: Consultation Date/Type/Reason Admit Date/Time Feb 17, 2017 at 20:40 Initial Consult Date Type of Consultation: ID Exam/Review of Systems Vital Signs Vitals Vital Signs Date Time Temp Pulse Resp B/P Pulse Ox O2 Delivery O2 Flow Rate FiO2 02/18/17 07:00 98.5 89 18 198/91 95 Intake and Output 02/17/17 02/17/17 02/18/17 15:00 23:00 07:00 Intake Total 200 ml Output Total 500 ml Balance -300 ml Results Results 24 hrs Laboratory Tests Test 02/18/17 00:58 02/18/17 08:10 02/18/17 12:22 Bedside Glucose 109 96 124 Medications Medications Current Medications Polyethylene Glycol (Miralax) 17 gm BID PO Last administered on 02/18/17 08:38 ; Admin Dose 17 GM; Start 02/17/17 at 23:00 Prasugrel (Effient) 10 mg DAILY PO Last administered on 02/18/17 08:39; Admin Dose 10 MG; Start 02/18/17 at 09:00 Ropinirole HCl (Requip) 0.25 mg HS PO ; Start 02/17/17 at 23:00 Tamsulosin HCl (Flomax) 0.4 mg DAILY@21 PO Last administered on 02/18/17 00:47 ; Admin Dose 0.4 MG; Start 02/17/17 at 23:00 Zolpidem Tartrate (Ambien) 10 mg HS PRN PO INSOMNIA; Start 02/17/17 at 23:15 Miscellaneous Information 1 ea NOTE XX ; Start 02/17/17 at 23:15 Glucose (Glutose) 15 gm Q15M PRN PO DECREASED GLUCOSE; Start 02/17/17 at 23:15 Glucose (Glutose) 22.5 gm Q15M PRN PO DECREASED GLUCOSE; Start 02/17/17 at 23: 15 Dextrose (D50w Syringe) 25 ml Q15M PRN IV DECREASED GLUCOSE; Start 02/17/17 at 23:15 Dextrose (D50w Syringe) 50 ml Q15M PRN IV DECREASED GLUCOSE; Start 02/17/17 at 23:15 Glucagon (Glucagen) 1 mg Q15M PRN IM DECREASED GLUCOSE; Start 02/17/17 at 23:15 Glucose (Glutose) 15 gm Q15M PRN BUCCAL DECREASED GLUCOSE; Start 02/17/17 at 23 :15 Multivit/Ca Carb/ B Cmplx/FA/Prenat (Paulina-Chrissy) 1 tab DAILY PO Last administered on 02/18/17 08:36; Admin Dose 1 TAB; Start 02/18/17 at 09:00 Nicotine (Nicoderm 14 Mg/ 24hr) 1 patch DAILY TRANSDERM Last administered on 08:38; Admin Dose 1 PATCH; Start 02/18/17 at 09:00 Nifedipine (Procardia Xl) 30 mg BID PO Last administered on 02/18/17 08:35; Admin Dose 30 MG; Start 02/17/17 at 23:00 Heparin Sodium (Porcine) (Heparin (5000 Units/0.5 ml)) 5,000 unit Q12 SC Last administered on 02/18/17 08:43; Admin Dose 5,000 UNIT; Start 02/17/17 at 23:00 Hydralazine HCl (Apresoline) 50 mg BID PO Last administered on 02/18/17 08:36 ; Admin Dose 50 MG; Start 02/17/17 at 23:00 Acetaminophen/ Hydrocodone Bitart ([place] (5/325)) 2 tab Q4H PRN PO PAIN; Start 02/17/17 at 23:30 Acetaminophen/ Hydrocodone Bitart ([place] (5/325)) 1 tab Q4H PRN PO PAIN; Start 02/17/17 at 23:30 Isosorbide Mononitrate (Imdur) 60 mg DAILY PO Last administered on 02/18/17 08 :38; Admin Dose 60 MG; Start 02/18/17 at 09:00 Diagnostic Test (Pha) (Accu-Chek) 1 ea 02 XX ; Start 02/18/17 at 02:00 Fish Oil (Fish Oil) 1,000 mg BID PO Last administered on 02/18/17 08:36; Admin Dose 1,000 MG; Start 02/17/17 at 23:15 Docusate Sodium (Colace) 100 mg BID PO Last administered on 02/18/17 08:36; Admin Dose 100 MG; Start 02/17/17 at 23:15 Epoetin Keven (Epogen (Esrd)) 6,000 units MoWeFr@17 SC ; Start 02/19/17 at 17:00 Ergocalciferol (Drisdol) 50,000 unit Tu@09 PO ; Start 02/23/17 at 09:00 Famotidine (Pepcid) 20 mg DAILY PO Last administered on 02/18/17 08:35; Admin Dose 20 MG; Start 02/18/17 at 09:00 Febuxostat (Uloric) 40 mg DAILY PO Last administered on 02/18/17 12:25; Admin Dose 40 MG; Start 02/18/17 at 09:00 Acetaminophen (Tylenol Tab) 650 mg Q6H PRN PO PAIN AND OR ELEVATED TEMP; Start 02/17/17 at 23:15 Atorvastatin Calcium (Lipitor) 10 mg DAILY@21 PO Last administered on 00:47; Admin Dose 10 MG; Start 02/17/17 at 23:15 Bisacodyl (Dulcolax) 10 mg DAILY PRN PO CONSTIPATION; Start 02/17/17 at 23:30 Carvedilol 3.125 mg 3.125 mg BID PO Last administered on 02/18/17 08:39; Admin Dose 3.125 MG; Start 02/17/17 at 23:30 Ceftriaxone Sodium (Rocephin) 50 ml @ 100 mls/hr Q24H IVPB Last administered on 02/18/17 12:26; Admin Dose 100 MLS/HR; Start 02/18/17 at 11:30; Stop at 12:30 Clonidine (Catapres) 0.1 mg TID PRN PO SBP ABOVE 160mmHg; Start 02/17/17 at 23: 30 JAROD NORIEGA NP Feb 18, 2017 13:48
--- NOTE | 2017-02-18 13:50 | PN ---
DATE: 02/18/2017 SUBJECTIVE: The patient is stable. No events overnight. No fevers, chills, nausea, vomiting. OBJECTIVE: VITAL SIGNS: Blood pressure 174/76, respiration 18, pulse 79, temperature 98.8. HEENT: Head is normocephalic. NECK: Supple. HEART: Regular rate. LUNGS: Show diminished breath sounds at base. ABDOMEN: Soft, nontender to palpation without rebound or guarding. EXTREMITIES: Negative for clubbing, cyanosis, edema. DERMATOLOGIC: No rashes. MUSCULOSKELETAL: No joint effusions. NEUROLOGIC: No change in exam. MEDICATIONS: The patient's medications have been reviewed. LABORATORY DATA: Pending. ASSESSMENT AND PLAN: 1. End-stage renal disease. Plan for hemodialysis tomorrow. 2. Anemia. Monitor hemoglobin and hematocrit levels. Continue Epogen as needed. 3. Mineral bone disorder, monitor calcium and phosphorus levels. 4. Congestive heart failure. Continue medical management. Continue ultrafiltration dialysis. 5. Hypertension. Blood pressures are elevated. Continue current blood pressure regimen. Adjust m edications as needed. 6. Sepsis, bacteremia. Patient completing antibiotic course. 7. encephalomyelitis. The patient is status post IVIG. Continue physical therapy. 8. Diabetes. Continue Accu-Cheks, insulin sliding scale. Dictated By: CORIE MALIK/CORA Conf#: [id number] DID#: [id number]
[2017-02-18 13:55] LABS: ADD UMIC YES; UR AMORPHOUS CRYSTAL FEW /HPF (NONE SEEN); UR ASCORBIC ACID NEGATIVE (NEGATIVE); UR BACTERIA FEW /HPF (NONE SEEN); UR BILIRUBIN (Dip) NEGATIVE (NEGATIVE); UR BLOOD (Dip) 1+ mg/dL (NEGATIVE); UR CLARITY SLIGHTLY CLOUDY (CLEAR); UR COLOR YELLOW (YELLOW); UR GLUCOSE (Dip) 1+ mg/dL (NEGATIVE); UR KETONES (Dip) NEGATIVE (NEGATIVE); UR LEUKOCYTE ESTERASE (Dip) 3+ Leu/ul (NEGATIVE); UR MUCUS FEW /HPF (NONE SEEN); UR NITRITE (Dip) NEGATIVE (NEGATIVE); UR RBC 11 /HPF (0-5); UR SPECIFIC GRAVITY (Dip) 1.011 (1.003-1.030); UR TOTAL PROTEIN (Dip) 2+ mg/dl (NEGATIVE); UR UROBILINOGEN (Dip) NEGATIVE (NEGATIVE)
[2017-02-18] MEDS ORDERED: GLUCAGON 1 MG INJ IM PRN (15:00)
[2017-02-18] MEDS ORDERED: GLUCOSE GEL 15 GRAM TUBE PO PRN ×2 (15:00)
[2017-02-18] MEDS ORDERED: GLUCOSE GEL 15 GRAM TUBE BUCCAL PRN (15:00)
[2017-02-18] MEDS ORDERED: DEXTROSE 50% 50 ML SYRINGE IV PRN ×2 (15:00)
[2017-02-18] MEDS: LINAGLIPTIN 5 MG TABLET PO SCH (15:49)
--- NOTE | 2017-02-18 17:04 | CONS ---
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 ACTIVE COMORBIDITIES: 1. End-stage renal disease on hemodialysis. 2. Encephalopathy. 3. Urinary tract infection. 4. Congestive heart failure. 5. Hypertension. 6. Impairments in self-care, mobility and cognition. HISTORY OF PRESENT ILLNESS: The patient is an 81-year-old gentleman with a history of multiple [facility] comorbidities including end-stage renal disease on hemodialysis, CHF and hypertension, who was a dmitted to [facility] with bilateral lower extremity weakness. Workup included a l umbar puncture which was positive for viral meningitis. 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 Patient has been noted to have significant impairments in self-care and mobility as compared to baseline and has been cleared to transfer to the rehabilitation unit for comprehensive interdiscipl inary rehab care. FUNCTIONAL HISTORY: Prior to recent events, he was independent in self-care tasks and mobility. Cu rrently, he requires maximal assist for self-care and mobility tasks. I have reviewed the preadmission screen and the patient's current functional status is consistent wi th the preadmission screen. SOCIAL HISTORY: The patient lives at home with family and hopes to return there upon discharge. PAST MEDICAL HISTORY: 1. End-stage renal disease on hemodialysis. 2. Congestive heart failure. 3. Hypertension. 4. Anemia. CURRENT MEDICATIONS: 1. Lipitor 10 mg p.o. at bedtime. 2. Coreg 3.125 mg p.o. b.i.d. 3. Rocephin IV. 4. Colace 100 mg b.i.d. 5. Epogen subQ. 6. Drisdol q. week. 7. Pepcid 20 mg p.o. daily. 8. Uloric 40 mg p.o. daily. 9. Fish oil. 10. Sliding-scale insulin. 11. Apresoline 50 mg b.i.d. 12. [place] p.r.n. 13. Imdur 60 mg p.o. daily. 14. Procardia-XL 30 mg b.i.d. 15. Requip 0.25 mg p.o. at bedtime. 16. Renagel. 17. Flomax 0.4 mg p.o. daily. 18. Ambien p.r.n. ALLERGIES: THE PATIENT WITH NO KNOWN DRUG ALLERGIES. PHYSICAL EXAMINATION: VITAL SIGNS: The patient is currently afebrile with stable vital signs. HEENT: The extraocular motions are intact. Oropharynx clear. NECK: Supple. LUNGS: Clear anteriorly. CARDIAC: S1, S2. ABDOMEN: Soft, nontender, positive bowel sounds. NEUROLOGIC: He is awake and alert and oriented to person and hospital. He will follow simple 1-chelsea p commands. He demonstrates antigravity strength in bilateral upper extremity and lower extremity. PLAN: The patient has been admitted for comprehensive interdisciplinary acute rehab and is anticipa mitzy to tolerate 3 hours of daily therapy in divided doses for at least 5 out of 7 days a week. The treatment plan will include: 1. Physical therapy to focus on bed mobility, transfers and household ambulation with the goal of h aving the patient reach standby assist level. 2. Occupational therapy to focus on hygiene, grooming, dressing, bathing, and toileting activities with the goal of having the patient reach standby assist level. 3. Rehabilitation nursing for carryover of therapeutic interventions, the goal of continent of hodan l and bladder and the goal of patient and family education with regard to the aforementioned issues. 4. Speech therapy for full cognitive assessment and retraining with the goal of having the patient return to baseline cognition. REHABILITATION BARRIER: Weakness. INTERVENTION FOR BARRIER: Interdisciplinary approach. ESTIMATED LENGTH OF STAY: 14 days. DISPOSITION GOAL: Home. I acknowledge that I performed a full physical examination on this patient. I believe the patient i s a good candidate for comprehensive interdisciplinary rehab care and is anticipated to make reasona ble goals in a reasonable period of time as outlined above. Dictated By: JESSICA DUNHAM/CORA Conf#: [id number] DID#: [id number]
[2017-02-18] MEDS ORDERED: metFORMIN 500 MG TAB PO SCH (17:35)
[2017-02-18 20:07] VITALS: BP 169/74; RESP 18
[2017-02-18] MEDS ORDERED: NIFEdipine (XL) 60 MG TAB PO SCH (21:00)
[2017-02-18] MEDS: ROPINIROLE 0.25 MG TAB PO SCH (21:13)
[2017-02-19] VITALS (12 sets, daily range): BP systolic 93–178; BP diastolic 45–78; PULSE 77–90; RESP 18–20
[2017-02-19 07:15] LABS: ABNORMAL IP MESSAGE 1; BASOPHILS % 0.2 % (0.0-2.0); EOSINOPHILS # 0.1 10^3/ul (0.0-0.5); EOSINOPHILS % 0.8 % (0.0-7.0); HEMATOCRIT 32.2 % (42.0-52.0); HEMOGLOBIN 10.3 g/dl (14.0-18.0); LYMPHOCYTES # 0.6 10^3/ul (0.8-2.9); LYMPHOCYTES % 7.5 % (15.0-51.0); MEAN CORPUSCULAR HEMOGLOBIN 32.7 pg (29.0-33.0); MEAN CORPUSCULAR VOLUME 102.2 fl (82.0-101.0); MEAN PLATELET VOLUME 11.9 fl (7.4-10.4); MONOCYTE # 0.6 10^3/ul (0.3-0.9); MONOCYTES % 7.2 % (0.0-11.0); NEUTROPHILS % 83.6 % (39.0-77.0); POSITIVE DIFF @See below; RED BLOOD COUNT 3.15 10^6/ul (4.70-6.10); RED CELL DISTRIBUTION WIDTH 14.4 % (11.5-14.5); WHITE BLOOD COUNT 8.4 10^3/ul (4.8-10.8)
[2017-02-19 07:19] LABS: PLATELET COUNT 85 10^3/UL (140-415)
[2017-02-19 07:45] LABS: CALCIUM 8.9 mg/dl (8.4-10.2); PHOSPHORUS 6.1 mg/dl (2.5-4.9); POTASSIUM 4.7 mmol/L (3.5-5.1)
[2017-02-19 07:57] LABS: CREATININE 8.47 mg/dl (0.61-1.24)
[2017-02-19] MEDS: NICOTINE (14 MG/24 HR) PATCH TRANSDERM SCH (08:36)
[2017-02-19] MEDS: POLYETHYLENE GLYCOL 17 GM PACKET PO SCH ×2 (08:36→20:53)
[2017-02-19] MEDS: FISH OIL 1,000 MG CAP PO SCH ×2 (08:37→20:53)
[2017-02-19] MEDS: FEBUXOSTAT 40 MG TABLET PO SCH (08:37)
[2017-02-19] MEDS: LINAGLIPTIN 5 MG TABLET PO SCH (08:37)
[2017-02-19] MEDS: FAMOTIDINE 20 MG TAB PO SCH (08:37)
[2017-02-19] MEDS: ISOSORBIDE MONONITRATE(SR)60 MG TAB PO SCH (08:38)
[2017-02-19] MEDS: DOCUSATE SODIUM 100 MG CAP PO SCH ×2 (08:38→20:52)
[2017-02-19] MEDS: MULTIVIT/CA CARB/B CMPLX/FA TAB PO SCH (08:38)
[2017-02-19] MEDS: PRASUGREL HYDROCHLORIDE 10 MG TABLET PO SCH (08:38)
[2017-02-19] MEDS: SEVELAMER 800 MG TAB PO SCH ×3 (08:39→17:26)
[2017-02-19] MEDS: NIFEdipine (XL) 30 MG TAB PO SCH ×2 (08:39→20:52)
[2017-02-19] MEDS: BALSAM PERU/CASTOR OIL 60 GM TUBE TOP SCH ×2 (08:39→20:53)
--- NOTE | 2017-02-19 10:24 | CONS ---
Date/Time of Note Date/Time of Note DATE: 02/19/17 TIME: 10:23 Consult Date/Type/Reason Admit Date/Time Feb 17, 2017 at 20:40 Initial Consult Date Type of Consultation: ID Subjective Patient is comfortable Objective pulm-cta max transfer Vital Signs Date Time Temp Pulse Resp B/P Pulse Ox O2 Delivery O2 Flow Rate FiO2 02/19/17 07:30 98.7 82 20 178/78 92 02/18/17 13:00 Room Air Intake and Output 02/18/17 02/18/17 02/19/17 15:00 23:00 07:00 Intake Total 250 ml 1000 ml 910 ml Output Total 750 ml 750 ml 500 ml Balance -500 ml 250 ml 410 ml Results/Medications Result Diagram: 02/19/1730 02/19/17 0630 Results 24 hrs Laboratory Tests Test 02/18/17 12:22 02/18/17 13:30 02/18/17 17:06 02/19/17 06:30 Bedside Glucose 124 109 Urine Color YELLOW Urine Clarity SLIGHTLY CLOUDY A Urine pH 7.0 Urine Specific [place] 1.011 Urine Ketones NEGATIVE Urine Nitrite NEGATIVE Urine Bilirubin NEGATIVE Urine Urobilinogen NEGATIVE Urine Leukocyte Esterase 3+ H Urine Microscopic RBC 11 H Urine Microscopic WBC 63 H Urine Amorphous Crystals FEW A Urine Bacteria FEW A Urine Mucus FEW A Urine Hemoglobin 1+ H Urine Glucose 1+ H Urine Total Protein 2+ H White Blood Count 8.4 # Red Blood Count 3.15 L Hemoglobin 10.3 L Hematocrit 32.2 L Mean Corpuscular Volume 102.2 H Mean Corpuscular Hemoglobin 32.7 Mean Corpuscular Hemoglobin Concent 32.0 Red Cell Distribution Width 14.4 Platelet Count 85 L Mean Platelet Volume 11.9 H Neutrophils % 83.6 H Lymphocytes % 7.5 L Monocytes % 7.2 Eosinophils % 0.8 Basophils % 0.2 Nucleated Red Blood Cells % 0.0 Neutrophils # 7.0 Lymphocytes # 0.6 L Monocytes # 0.6 Eosinophils # 0.1 Basophils # 0.0 Nucleated Red Blood Cells # 0.0 Sodium Level 136 Potassium Level 4.7 Chloride Level 103 Carbon Dioxide Level 23 Anion Gap 15 Blood Urea Nitrogen 96 H Creatinine 8.47 H Glucose Level 98 Calcium Level 8.9 Phosphorus Level 6.1 H Magnesium Level 2.0 Medications Current Medications Polyethylene Glycol (Miralax) 17 gm BID PO Last administered on 02/19/17 08:36 ; Admin Dose 17 GM; Start 02/17/17 at 23:00 Prasugrel (Effient) 10 mg DAILY PO Last administered on 02/19/17 08:38; Admin Dose 10 MG; Start 02/18/17 at 09:00 Ropinirole HCl (Requip) 0.25 mg HS PO Last administered on 02/18/17 21:13; Admin Dose 0.25 MG; Start 02/17/17 at 23:00 Tamsulosin HCl (Flomax) 0.4 mg DAILY@21 PO Last administered on 02/18/17 21:14 ; Admin Dose 0.4 MG; Start 02/17/17 at 23:00 Zolpidem Tartrate (Ambien) 10 mg HS PRN PO INSOMNIA; Start 02/17/17 at 23:15 Multivit/Ca Carb/ B Cmplx/FA/Prenat (Paulina-Chrissy) 1 tab DAILY PO Last administered on 02/19/17 08:38; Admin Dose 1 TAB; Start 02/18/17 at 09:00 Nicotine (Nicoderm 14 Mg/ 24hr) 1 patch DAILY TRANSDERM Last administered on 08:36; Admin Dose 1 PATCH; Start 02/18/17 at 09:00 Heparin Sodium (Porcine) (Heparin (5000 Units/0.5 ml)) 5,000 unit Q12 SC Last administered on 02/18/17 21:24; Admin Dose 5,000 UNIT; Start 02/17/17 at 23:00 Hydralazine HCl (Apresoline) 50 mg BID PO Last administered on 02/19/17 08:37 ; Admin Dose 50 MG; Start 02/17/17 at 23:00 Acetaminophen/ Hydrocodone Bitart ([place] (5/325)) 2 tab Q4H PRN PO PAIN Last administered on 02/19/17 08:38; Admin Dose 2 TAB; Start 02/17/17 at 23:30 Acetaminophen/ Hydrocodone Bitart ([place] (5/325)) 1 tab Q4H PRN PO PAIN; Start 02/17/17 at 23:30 Isosorbide Mononitrate (Imdur) 60 mg DAILY PO Last administered on 02/19/17 08 :38; Admin Dose 60 MG; Start 02/18/17 at 09:00 Fish Oil (Fish Oil) 1,000 mg BID PO Last administered on 02/19/17 08:37; Admin Dose 1,000 MG; Start 02/17/17 at 23:15 Docusate Sodium (Colace) 100 mg BID PO Last administered on 02/19/17 08:38; Admin Dose 100 MG; Start 02/17/17 at 23:15 Epoetin Keven (Epogen (Esrd)) 6,000 units MoWeFr@17 SC ; Start 02/19/17 at 17:00 Ergocalciferol (Drisdol) 50,000 unit Tu@09 PO ; Start 02/23/17 at 09:00 Famotidine (Pepcid) 20 mg DAILY PO Last administered on 02/19/17 08:37; Admin Dose 20 MG; Start 02/18/17 at 09:00 Febuxostat (Uloric) 40 mg DAILY PO Last administered on 02/19/17 08:37; Admin Dose 40 MG; Start 02/18/17 at 09:00 Acetaminophen (Tylenol Tab) 650 mg Q6H PRN PO PAIN AND OR ELEVATED TEMP; Start 02/17/17 at 23:15 Atorvastatin Calcium (Lipitor) 10 mg DAILY@21 PO Last administered on 21:14; Admin Dose 10 MG; Start 02/17/17 at 23:15 Bisacodyl 10 mg 10 mg DAILY PRN PO CONSTIPATION; Start 02/17/17 at 23:30 Ceftriaxone Sodium (Rocephin) 50 ml @ 100 mls/hr Q24H IVPB Last administered on 02/18/17 12:26; Admin Dose 100 MLS/HR; Start 02/18/17 at 11:30; Stop at 12:30 Clonidine (Catapres) 0.1 mg TID PRN PO SBP ABOVE 160mmHg; Start 02/17/17 at 23: 30 Carvedilol (Coreg) 6.25 mg BID PO Last administered on 02/19/17 08:37; Admin Dose 6.25 MG; Start 02/18/17 at 21:00 Linagliptin (Tradjenta) 5 mg DAILY PO Last administered on 02/19/17 08:37; Admin Dose 5 MG; Start 02/18/17 at 14:36 Miscellaneous Information 1 ea NOTE XX ; Start 02/18/17 at 15:00 Glucose (Glutose) 15 gm Q15M PRN PO DECREASED GLUCOSE; Start 02/18/17 at 15:00 Glucose (Glutose) 22.5 gm Q15M PRN PO DECREASED GLUCOSE; Start 02/18/17 at 15: 00 Dextrose (D50w Syringe) 25 ml Q15M PRN IV DECREASED GLUCOSE; Start 02/18/17 at 15:00 Dextrose (D50w Syringe) 50 ml Q15M PRN IV DECREASED GLUCOSE; Start 02/18/17 at 15:00 Glucagon (Glucagen) 1 mg Q15M PRN IM DECREASED GLUCOSE; Start 02/18/17 at 15:00 Glucose (Glutose) 15 gm Q15M PRN BUCCAL DECREASED GLUCOSE; Start 02/18/17 at 15 :00 Nifedipine (Procardia Xl) 30 mg BID PO Last administered on 02/19/17t 08:39; Admin Dose 30 MG; Start 02/18/17 at 21:00 Assessment/Plan Additional Assessment/Plan Rehab-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 Urinary tract infection. Congestive heart failure. Hypertension. JESSICA ADAMS MD Feb 19, 2017 10:24
[2017-02-19] MEDS: CEFTRIAXONE 1 GM/50 ML (PMX) 50 ML IVPB SCH (11:24)
--- NOTE | 2017-02-19 15:13 | PN ---
DATE: 02/19/2017 SUBJECTIVE: The patient is scheduled for hemodialysis today. No other events noted. No vitals. N o fevers, chills, nausea, vomiting. OBJECTIVE: VITAL SIGNS: Blood pressure is 170/78, pulse 82, temperature 98.7, respirations 20. HEENT: Head is normocephalic. Pupils are reactive to light. NECK: Supple. HEART: Regular rate. LUNGS: Show diminished breath sounds at base. ABDOMEN: Soft, nontender to palpation. No rebound or guarding. EXTREMITIES: Negative for clubbing, cyanosis. No edema. DERMATOLOGIC: No rashes. MUSCULOSKELETAL: No joint effusions. NEUROLOGIC: No change in exam. MEDICATIONS: The patient's medications have been reviewed. LABORATORY DATA: Shows a white count 8.6, hemoglobin 10.3, hematocrit 32.2, platelet count 85. Sod ium 136, potassium 4.7, BUN 96, creatinine 8.47. ASSESSMENT AND PLAN: 1. End-stage renal disease. Plan for hemodialysis today. 2. Anemia. Monitor hemoglobin and hematocrit levels. Continue Epogen. 3. Mineral bone disorder. Continue to monitor calcium and phosphorus levels. 4. Congestive heart failure. Continue medical management. 5. Hypertension. Continue current blood pressure regimen. 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 7. Diabetes. Continue Accu-Cheks and insulin sliding scale. 8. Thrombocytopenia. Continue to monitor. Consider holding heparin. Dictated By: CORIE MALIK/CORA Conf#: [id number] DID#: [id number]
--- NOTE | 2017-02-19 16:08 | CONS ---
Date/Time of Note Date/Time of Note DATE: 02/19/17 TIME: 16:07 Assessment/Plan Assessment/Plan Additional Assessment/Plan 1. 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 -Status post treatment with pulse dose steroids followed by IVIG. -Continue PT/OT -Follow-up with outpatient studies EMG/NCV to evaluate for possible demyelinating polyneuropathy such as CIDP 2. 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 Hypertension, poorly controlled. -Uptitrate Coreg to 6.25. Will monitor blood pressure closely and will adjust as indicated. 4. End-stage renal disease, on hemodialysis. 5. Status post sepsis bacteremia with Multidrug resistant urinary tract infection. UA still showing evidence of infection. -On abx. Follow-up with ID recommendations. 6. Coronary artery disease. -Continue home medications. 7. Dyslipidemia. -Continue statin/fish oil. 8. Anemia of chronic kidney disease. -HH stable. Will monitor. 9. Type 2 diabetes mellitus. Latest A1c 4.9 with good glycemic control. -Stable. No need for insulin in-house. We will start patient on Tradjenta as metformin is not a good choice secondary to renal clearance. -Accu-Cheks twice daily and carbohydrate controlled diet. 10. Benign prostatic hypertrophy. -Continue Flomax. 11. Obesity. -Weight reduction advised 12. Nicotine abuse. -Cessation advised. Prophylaxis: Ambulation/SCDs Consultation Date/Type/Reason Admit Date/Time Feb 17, 2017 at 20:40 Initial Consult Date Type of Consultation: INTERNAL MEDICINE Exam/Review of Systems Vital Signs Vitals Vital Signs Date Time Temp Pulse Resp B/P Pulse Ox O2 Delivery O2 Flow Rate FiO2 02/19/17 14:00 98.6 82 20 146/65 94 02/18/17 13:00 Room Air Intake and Output 02/18/17 02/18/17 02/19/17 15:00 23:00 07:00 Intake Total 250 ml 1000 ml 910 ml Output Total 750 ml 750 ml 500 ml Balance -500 ml 250 ml 410 ml Exam General: Elderly male, not in any acute distress . HEENT: Normocephalic, Atraumatic, No laceration or hematoma; Eyes: PEERL, Conjunctiva clear, Anicteric sclera Neck: Supple without any lymphadenopathy, nontender, no JVD, no carotid bruits, trachea midline, no thyromegaly Cardiac: S1, S2 auscultated, regular rhythm and rate, no mumurs or gallop Pulmonary: Normal respiratory effort. Chest clear to auscultation bilaterally, no adventitious breath sounds GI: Abdomen normal to inspection. Soft, non tender, non- distended, no masses, no rebound tenderness or guarding. Bowel sounds active on all four quadrants Genitourinary: Deferred Extremities: With severe weakness to bilateral lower extremities. No cyanosis, clubbing, or edema. Pulses [2+] bilaterally. No focal weakness appreciated. Neurologic: Alert to person, place, time, and situation. Affect appropriate, intact sensation. Skin: Clean,dry, and intact. No ecchymosis, no rashes, or lesions Results Result Diagram: 02/19/17 0630 02/19/17 0630 Results 24 hrs Laboratory Tests Test 02/18/17 17:06 02/19/17 06:30 Bedside Glucose 109 White Blood Count 8.4 # Red Blood Count 3.15 L Hemoglobin 10.3 L Hematocrit 32.2 L Mean Corpuscular Volume 102.2 H Mean Corpuscular Hemoglobin 32.7 Mean Corpuscular Hemoglobin Concent 32.0 Red Cell Distribution Width 14.4 Platelet Count 85 L Mean Platelet Volume 11.9 H Neutrophils % 83.6 H Lymphocytes % 7.5 L Monocytes % 7.2 Eosinophils % 0.8 Basophils % 0.2 Nucleated Red Blood Cells % 0.0 Neutrophils # 7.0 Lymphocytes # 0.6 L Monocytes # 0.6 Eosinophils # 0.1 Basophils # 0.0 Nucleated Red Blood Cells # 0.0 Sodium Level 136 Potassium Level 4.7 Chloride Level 103 Carbon Dioxide Level 23 Anion Gap 15 Blood Urea Nitrogen 96 H Creatinine 8.47 H Glucose Level 98 Calcium Level 8.9 Phosphorus Level 6.1 H Magnesium Level 2.0 Medications Medications Current Medications Polyethylene Glycol (Miralax) 17 gm BID PO Last administered on 02/19/17 08:36 ; Admin Dose 17 GM; Start 02/17/17 at 23:00 Prasugrel (Effient) 10 mg DAILY PO Last administered on 02/19/17 08:38; Admin Dose 10 MG; Start 02/18/17 at 09:00 Ropinirole HCl (Requip) 0.25 mg HS PO Last administered on 02/18/17 21:13; Admin Dose 0.25 MG; Start 02/17/17 at 23:00 Tamsulosin HCl (Flomax) 0.4 mg DAILY@21 PO Last administered on 02/18/17 21:14 ; Admin Dose 0.4 MG; Start 02/17/17 at 23:00 Zolpidem Tartrate (Ambien) 10 mg HS PRN PO INSOMNIA; Start 02/17/17 at 23:15 Multivit/Ca Carb/ B Cmplx/FA/Prenat (Paulina-Chrissy) 1 tab DAILY PO Last administered on 02/19/17 08:38; Admin Dose 1 TAB; Start 02/18/17 at 09:00 Nicotine (Nicoderm 14 Mg/ 24hr) 1 patch DAILY TRANSDERM Last administered on 08:36; Admin Dose 1 PATCH; Start 02/18/17 at 09:00 Hydralazine HCl (Apresoline) 50 mg BID PO Last administered on 02/19/17 08:37 ; Admin Dose 50 MG; Start 02/17/17 at 23:00 Acetaminophen/ Hydrocodone Bitart ([place] (5/325)) 2 tab Q4H PRN PO PAIN Last administered on 02/19/17 08:38; Admin Dose 2 TAB; Start 02/17/17 at 23:30 Acetaminophen/ Hydrocodone Bitart ([place] (5/325)) 1 tab Q4H PRN PO PAIN; Start 02/17/17 at 23:30 Isosorbide Mononitrate (Imdur) 60 mg DAILY PO Last administered on 02/19/17 08 :38; Admin Dose 60 MG; Start 02/18/17 at 09:00 Fish Oil (Fish Oil) 1,000 mg BID PO Last administered on 02/19/17 08:37; Admin Dose 1,000 MG; Start 02/17/17 at 23:15 Docusate Sodium (Colace) 100 mg BID PO Last administered on 02/19/17 08:38; Admin Dose 100 MG; Start 02/17/17 at 23:15 Epoetin Keven (Epogen (Esrd)) 6,000 units MoWeFr@17 SC ; Start 02/19/17 at 17:00 Ergocalciferol (Drisdol) 50,000 unit Tu@09 PO ; Start 02/23/17 at 09:00 Famotidine (Pepcid) 20 mg DAILY PO Last administered on 02/19/17 08:37; Admin Dose 20 MG; Start 02/18/17 at 09:00 Febuxostat (Uloric) 40 mg DAILY PO Last administered on 02/19/17 08:37; Admin Dose 40 MG; Start 02/18/17 at 09:00 Acetaminophen (Tylenol Tab) 650 mg Q6H PRN PO PAIN AND OR ELEVATED TEMP; Start 02/17/17 at 23:15 Atorvastatin Calcium (Lipitor) 10 mg DAILY@21 PO Last administered on 21:14; Admin Dose 10 MG; Start 02/17/17 at 23:15 Bisacodyl 10 mg 10 mg DAILY PRN PO CONSTIPATION; Start 02/17/17 at 23:30 Ceftriaxone Sodium (Rocephin) 50 ml @ 100 mls/hr Q24H IVPB Last administered on 02/19/17 11:24; Admin Dose 100 MLS/HR; Start 02/18/17 at 11:30; Stop at 12:30 Clonidine (Catapres) 0.1 mg TID PRN PO SBP ABOVE 160mmHg; Start 02/17/17 at 23: 30 Carvedilol (Coreg) 6.25 mg BID PO Last administered on 02/19/17 08:37; Admin Dose 6.25 MG; Start 02/18/17 at 21:00 Linagliptin (Tradjenta) 5 mg DAILY PO Last administered on 02/19/17 08:37; Admin Dose 5 MG; Start 02/18/17 at 14:36 Miscellaneous Information 1 ea NOTE XX ; Start 02/18/17 at 15:00 Glucose (Glutose) 15 gm Q15M PRN PO DECREASED GLUCOSE; Start 02/18/17 at 15:00 Glucose (Glutose) 22.5 gm Q15M PRN PO DECREASED GLUCOSE; Start 02/18/17 at 15: 00 Dextrose (D50w Syringe) 25 ml Q15M PRN IV DECREASED GLUCOSE; Start 02/18/17 at 15:00 Dextrose (D50w Syringe) 50 ml Q15M PRN IV DECREASED GLUCOSE; Start 02/18/17 at 15:00 Glucagon (Glucagen) 1 mg Q15M PRN IM DECREASED GLUCOSE; Start 02/18/17 at 15:00 Glucose (Glutose) 15 gm Q15M PRN BUCCAL DECREASED GLUCOSE; Start 02/18/17 at 15 :00 Nifedipine (Procardia Xl) 30 mg BID PO Last administered on 02/19/17 08:39; Admin Dose 30 MG; Start 02/18/17 at 21:00 RADHA DE SOUZA MD Feb 19, 2017 16:08
[2017-02-19] MEDS ORDERED: EPOETIN 3000 UNITS/1 ML INJ (ESRD) SC SCH (17:00)
[2017-02-19] MEDS: ROPINIROLE 0.25 MG TAB PO SCH (20:52)
[2017-02-19] MEDS: ATORVASTATIN 10 MG TAB PO SCH (20:52)
[2017-02-19] MEDS: TAMSULOSIN (SR) 0.4 MG CAP PO SCH (20:53)
[2017-02-19] MEDS: ZOLPIDEM 5 MG TAB PO PRN (21:41)
[2017-02-20 02:00] VITALS: BP 135/68; RESP 18
[2017-02-20 08:00] VITALS: BP 180/76; PULSE 80; RESP 18
--- NOTE | 2017-02-20 08:04 | CONS ---
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 Urinary tract infection. Congestive heart failure. Hypertension. Results/Medications Result Diagram: 02/19/17 0630 02/19/17 0630 Medications Current Medications Polyethylene Glycol (Miralax) 17 gm BID PO Last administered on 02/19/17 20:53 ; Admin Dose 17 GM; Start 02/17/17 at 23:00 Prasugrel (Effient) 10 mg DAILY PO Last administered on 02/19/17 08:38; Admin Dose 10 MG; Start 02/18/17 at 09:00 Ropinirole HCl (Requip) 0.25 mg HS PO Last administered on 02/19/17 20:52; Admin Dose 0.25 MG; Start 02/17/17 at 23:00 Tamsulosin HCl (Flomax) 0.4 mg DAILY@21 PO Last administered on 02/19/17 20:53 ; Admin Dose 0.4 MG; Start 02/17/17 at 23:00 Zolpidem Tartrate (Ambien) 10 mg HS PRN PO INSOMNIA Last administered on 21:41; Admin Dose 10 MG; Start 02/17/17 at 23:15 Multivit/Ca Carb/ B Cmplx/FA/Prenat (Paulina-Chrissy) 1 tab DAILY PO Last administered on 02/19/17 08:38; Admin Dose 1 TAB; Start 02/18/17 at 09:00 Nicotine (Nicoderm 14 Mg/ 24hr) 1 patch DAILY TRANSDERM Last administered on 08:36; Admin Dose 1 PATCH; Start 02/18/17 at 09:00 Hydralazine HCl (Apresoline) 50 mg BID PO Last administered on 02/19/17 20:52 ; Admin Dose 50 MG; Start 02/17/17 at 23:00 Acetaminophen/ Hydrocodone Bitart ([place] (5/325)) 2 tab Q4H PRN PO PAIN Last administered on 02/19/17 08:38; Admin Dose 2 TAB; Start 02/17/17 at 23:30 Acetaminophen/ Hydrocodone Bitart ([place] (5/325)) 1 tab Q4H PRN PO PAIN; Start 02/17/17 at 23:30 Isosorbide Mononitrate (Imdur) 60 mg DAILY PO Last administered on 02/19/17 08 :38; Admin Dose 60 MG; Start 02/18/17 at 09:00 Fish Oil (Fish Oil) 1,000 mg BID PO Last administered on 02/19/17 20:53; Admin Dose 1,000 MG; Start 02/17/17 at 23:15 Docusate Sodium (Colace) 100 mg BID PO Last administered on 02/19/17 20:52; Admin Dose 100 MG; Start 02/17/17 at 23:15 Epoetin Keven (Epogen (Esrd)) 6,000 units MoWeFr@17 SC Last administered on 02/19 17:40; Admin Dose 6,000 UNITS; Start 02/19/17 at 17:00 Ergocalciferol (Drisdol) 50,000 unit Tu@09 PO ; Start 02/23/17 at 09:00 Famotidine (Pepcid) 20 mg DAILY PO Last administered on 02/19/17 08:37; Admin Dose 20 MG; Start 02/18/17 at 09:00 Febuxostat (Uloric) 40 mg DAILY PO Last administered on 02/19/17 08:37; Admin Dose 40 MG; Start 02/18/17 at 09:00 Acetaminophen (Tylenol Tab) 650 mg Q6H PRN PO PAIN AND OR ELEVATED TEMP; Start 02/17/17 at 23:15 Atorvastatin Calcium (Lipitor) 10 mg DAILY@21 PO Last administered on 20:52; Admin Dose 10 MG; Start 02/17/17 at 23:15 Bisacodyl 10 mg 10 mg DAILY PRN PO CONSTIPATION; Start 02/17/17 at 23:30 Ceftriaxone Sodium (Rocephin) 50 ml @ 100 mls/hr Q24H IVPB Last administered on 02/19/17 11:24; Admin Dose 100 MLS/HR; Start 02/18/17 at 11:30; Stop at 12:30 Clonidine (Catapres) 0.1 mg TID PRN PO SBP ABOVE 160mmHg; Start 02/17/17 at 23: 30 Carvedilol (Coreg) 6.25 mg BID PO Last administered on 02/19/17 20:53; Admin Dose 6.25 MG; Start 02/18/17 at 21:00 Linagliptin (Tradjenta) 5 mg DAILY PO Last administered on 02/19/17 08:37; Admin Dose 5 MG; Start 02/18/17 at 14:36 Miscellaneous Information 1 ea NOTE XX ; Start 02/18/17 at 15:00 Glucose (Glutose) 15 gm Q15M PRN PO DECREASED GLUCOSE; Start 02/18/17 at 15:00 Glucose (Glutose) 22.5 gm Q15M PRN PO DECREASED GLUCOSE; Start 02/18/17 at 15: 00 Dextrose (D50w Syringe) 25 ml Q15M PRN IV DECREASED GLUCOSE; Start 02/18/17 at 15:00 Dextrose (D50w Syringe) 50 ml Q15M PRN IV DECREASED GLUCOSE; Start 02/18/17 at 15:00 Glucagon (Glucagen) 1 mg Q15M PRN IM DECREASED GLUCOSE; Start 02/18/17 at 15:00 Glucose (Glutose) 15 gm Q15M PRN BUCCAL DECREASED GLUCOSE; Start 02/18/17 at 15 :00 Nifedipine (Procardia Xl) 30 mg BID PO Last administered on 02/19/17 20:52; Admin Dose 30 MG; Start 02/18/17 at 21:00 JESSICA ADAMS MD Feb 20, 2017 08:03
[2017-02-20] MEDS: FAMOTIDINE 20 MG TAB PO SCH (08:11)
[2017-02-20] MEDS: FEBUXOSTAT 40 MG TABLET PO SCH (08:11)
[2017-02-20] MEDS: DOCUSATE SODIUM 100 MG CAP PO SCH ×2 (08:11→20:38)
[2017-02-20] MEDS: POLYETHYLENE GLYCOL 17 GM PACKET PO SCH ×2 (08:11→20:34)
[2017-02-20] MEDS: FISH OIL 1,000 MG CAP PO SCH ×2 (08:11→20:37)
[2017-02-20] MEDS: MULTIVIT/CA CARB/B CMPLX/FA TAB PO SCH (08:12)
[2017-02-20] MEDS: PRASUGREL HYDROCHLORIDE 10 MG TABLET PO SCH (08:12)
[2017-02-20] MEDS: LINAGLIPTIN 5 MG TABLET PO SCH (08:12)
[2017-02-20] MEDS: ISOSORBIDE MONONITRATE(SR)60 MG TAB PO SCH (08:12)
[2017-02-20] MEDS: NIFEdipine (XL) 30 MG TAB PO SCH ×2 (08:13→20:37)
[2017-02-20] MEDS: BALSAM PERU/CASTOR OIL 60 GM TUBE TOP SCH ×2 (08:13→20:38)
[2017-02-20] MEDS: SEVELAMER 800 MG TAB PO SCH ×3 (08:13→17:28)
[2017-02-20] MEDS: NICOTINE (14 MG/24 HR) PATCH TRANSDERM SCH (08:17)
[2017-02-20 10:54] VITALS: BP 134/56; PULSE 81; RESP 18
--- NOTE | 2017-02-20 11:25 | PN ---
Date/Time of Note Date/Time of Note DATE: 02/20/17 TIME: 11:24 Assessment/Plan VTE Prophylaxis VTE Prophylaxis Intervention: other Lines/Catheters IV Catheter Type (from [facility]): Saline Lock Urinary Cath still in place: No Assessment/Plan Chief Complaint/Hosp Course renal follow up SUBJECTIVE: The patient is s/p HD yesterday. No other events noted. No vitals. No fevers, chills, nausea, vomiting. OBJECTIVE: HEENT: Head is normocephalic. Pupils are reactive to light. NECK: Supple. HEART: Regular rate. LUNGS: Show diminished breath sounds at base. ABDOMEN: Soft, nontender to palpation. No rebound or guarding. EXTREMITIES: Negative for clubbing, cyanosis. No edema. DERMATOLOGIC: No rashes. MUSCULOSKELETAL: No joint effusions. NEUROLOGIC: No change in exam. MEDICATIONS: The patient's medications have been reviewed. ASSESSMENT AND PLAN: 1. End-stage renal disease. Plan for hemodialysis on Wednesday 2. Anemia. Monitor hemoglobin and hematocrit levels. Continue Epogen. 3. Mineral bone disorder. Continue to monitor calcium and phosphorus levels. 4. Congestive heart failure. Continue medical management. 5. Hypertension. Continue current blood pressure regimen. 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 7. Diabetes. Continue Accu-Cheks and insulin sliding scale. 8. Thrombocytopenia. Continue to monitor. Consider holding heparin. Problems: Exam/Review of Systems Vital Signs Vitals Vital Signs Date Time Temp Pulse Resp B/P Pulse Ox O2 Delivery O2 Flow Rate FiO2 02/20/17 10:54 81 18 134/56 02/20/17 08:00 97.8 94 Room Air Intake and Output 02/19/17 02/19/17 02/20/17 15:00 23:00 07:00 Intake Total 870 ml Output Total 3000 ml 1 ml Balance -2130 ml -1 ml Results Result Diagram: 02/19/17 0630 02/19/17 0630 Medications Medications Current Medications Polyethylene Glycol (Miralax) 17 gm BID PO Last administered on 02/20/17 08:11 ; Admin Dose 17 GM; Start 02/17/17 at 23:00 Prasugrel (Effient) 10 mg DAILY PO Last administered on 02/20/17 08:12; Admin Dose 10 MG; Start 02/18/17 at 09:00 Ropinirole HCl (Requip) 0.25 mg HS PO Last administered on 02/19/17 20:52; Admin Dose 0.25 MG; Start 02/17/17 at 23:00 Tamsulosin HCl (Flomax) 0.4 mg DAILY@21 PO Last administered on 02/19/17 20:53 ; Admin Dose 0.4 MG; Start 02/17/17 at 23:00 Zolpidem Tartrate (Ambien) 10 mg HS PRN PO INSOMNIA Last administered on 21:41; Admin Dose 10 MG; Start 02/17/17 at 23:15 Multivit/Ca Carb/ B Cmplx/FA/Prenat (Paulina-Chrissy) 1 tab DAILY PO Last administered on 02/20/17 08:12; Admin Dose 1 TAB; Start 02/18/17 at 09:00 Nicotine (Nicoderm 14 Mg/ 24hr) 1 patch DAILY TRANSDERM Last administered on 08:17; Admin Dose 1 PATCH; Start 02/18/17 at 09:00 Hydralazine HCl (Apresoline) 50 mg BID PO Last administered on 02/20/17 08:12 ; Admin Dose 50 MG; Start 02/17/17 at 23:00 Acetaminophen/ Hydrocodone Bitart ([place] (5/325)) 2 tab Q4H PRN PO PAIN Last administered on 02/19/17 08:38; Admin Dose 2 TAB; Start 02/17/17 at 23:30 Acetaminophen/ Hydrocodone Bitart ([place] (5/325)) 1 tab Q4H PRN PO PAIN; Start 02/17/17 at 23:30 Isosorbide Mononitrate (Imdur) 60 mg DAILY PO Last administered on 02/20/17 08 :12; Admin Dose 60 MG; Start 02/18/17 at 09:00 Fish Oil (Fish Oil) 1,000 mg BID PO Last administered on 02/20/17 08:11; Admin Dose 1,000 MG; Start 02/17/17 at 23:15 Docusate Sodium (Colace) 100 mg BID PO Last administered on 02/20/17 08:11; Admin Dose 100 MG; Start 02/17/17 at 23:15 Epoetin Keven (Epogen (Esrd)) 6,000 units MoWeFr@17 SC Last administered on 02/19 17:40; Admin Dose 6,000 UNITS; Start 02/19/17 at 17:00 Ergocalciferol (Drisdol) 50,000 unit Tu@09 PO ; Start 02/23/17 at 09:00 Famotidine (Pepcid) 20 mg DAILY PO Last administered on 02/20/17 08:11; Admin Dose 20 MG; Start 02/18/17 at 09:00 Febuxostat (Uloric) 40 mg DAILY PO Last administered on 02/20/17 08:11; Admin Dose 40 MG; Start 02/18/17 at 09:00 Acetaminophen (Tylenol Tab) 650 mg Q6H PRN PO PAIN AND OR ELEVATED TEMP; Start 02/17/17 at 23:15 Atorvastatin Calcium (Lipitor) 10 mg DAILY@21 PO Last administered on 20:52; Admin Dose 10 MG; Start 02/17/17 at 23:15 Bisacodyl 10 mg 10 mg DAILY PRN PO CONSTIPATION; Start 02/17/17 at 23:30 Ceftriaxone Sodium (Rocephin) 50 ml @ 100 mls/hr Q24H IVPB Last administered on 02/19/17 11:24; Admin Dose 100 MLS/HR; Start 02/18/17 at 11:30; Stop at 12:30 Clonidine (Catapres) 0.1 mg TID PRN PO SBP ABOVE 160mmHg; Start 02/17/17 at 23: 30 Carvedilol (Coreg) 6.25 mg BID PO Last administered on 02/20/17 08:12; Admin Dose 6.25 MG; Start 02/18/17 at 21:00 Linagliptin (Tradjenta) 5 mg DAILY PO Last administered on 02/20/17 08:12; Admin Dose 5 MG; Start 02/18/17 at 14:36 Miscellaneous Information 1 ea NOTE XX ; Start 02/18/17 at 15:00 Glucose (Glutose) 15 gm Q15M PRN PO DECREASED GLUCOSE; Start 02/18/17 at 15:00 Glucose (Glutose) 22.5 gm Q15M PRN PO DECREASED GLUCOSE; Start 02/18/17 at 15: 00 Dextrose (D50w Syringe) 25 ml Q15M PRN IV DECREASED GLUCOSE; Start 02/18/17 at 15:00 Dextrose (D50w Syringe) 50 ml Q15M PRN IV DECREASED GLUCOSE; Start 02/18/17 at 15:00 Glucagon (Glucagen) 1 mg Q15M PRN IM DECREASED GLUCOSE; Start 02/18/17 at 15:00 Glucose (Glutose) 15 gm Q15M PRN BUCCAL DECREASED GLUCOSE; Start 02/18/17 at 15 :00 Nifedipine (Procardia Xl) 30 mg BID PO Last administered on 02/20/17 08:13; Admin Dose 30 MG; Start 02/18/17 at 21:00 IGOR MORFIN DO Feb 20, 2017 11:25
[2017-02-20] MEDS: CEFTRIAXONE 1 GM/50 ML (PMX) 50 ML IVPB SCH (12:14)
--- NOTE | 2017-02-20 15:32 | PN ---
Date/Time of Note Date/Time of Note DATE: 02/20/17 TIME: 15:31 Assessment/Plan VTE Prophylaxis VTE Prophylaxis Intervention: SCD's Lines/Catheters IV [facility] Type (from [facility]): Saline Lock Urinary Cath still in place: No Assessment/Plan Assessment/Plan 1. 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 -Status post treatment with pulse dose steroids followed by IVIG. -Continue PT/OT -Follow-up with outpatient studies EMG/NCV to evaluate for possible demyelinating polyneuropathy such as CIDP 2. 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 Hypertension, poorly controlled. -Uptitrate Coreg to 6.25. Will monitor blood pressure closely and will adjust as indicated. 4. End-stage renal disease, on hemodialysis. 5. Status post sepsis bacteremia with Multidrug resistant urinary tract infection. UA still showing evidence of infection. -On abx. Follow-up with ID recommendations. 6. Coronary artery disease. -Continue home medications. 7. Dyslipidemia. -Continue statin/fish oil. 8. Anemia of chronic kidney disease. -HH stable. Will monitor. 9. Type 2 diabetes mellitus. Latest A1c 4.9 with good glycemic control. -Stable. No need for insulin in-house. We will start patient on Tradjenta as metformin is not a good choice secondary to renal clearance. -Accu-Cheks twice daily and carbohydrate controlled diet. 10. Benign prostatic hypertrophy. -Continue Flomax. 11. Obesity. -Weight reduction advised 12. Nicotine abuse. -Cessation advised. Prophylaxis: Ambulation/SCDs Subjective 24 Hr Interval Summary Free Text/Dictation having c/o intermittent bladder pain with retention of urine Exam/Review of Systems Vital Signs Vitals Vital Signs Date Time Temp Pulse Resp B/P Pulse Ox O2 Delivery O2 Flow Rate FiO2 02/20/17 10:54 81 18 134/56 02/20/17 08:00 97.8 94 Room Air Intake and Output 02/19/17 02/19/17 02/20/17 15:00 23:00 07:00 Intake Total 870 ml Output Total 3000 ml 1 ml Balance -2130 ml -1 ml Exam General: Elderly male, not in any acute distress . HEENT: Normocephalic, Atraumatic, No laceration or hematoma; Eyes: PEERL, Conjunctiva clear, Anicteric sclera Neck: Supple without any lymphadenopathy, nontender, no JVD, no carotid bruits, trachea midline, no thyromegaly Cardiac: S1, S2 auscultated, regular rhythm and rate, no mumurs or gallop Pulmonary: Normal respiratory effort. Chest clear to auscultation bilaterally, no adventitious breath sounds GI: Abdomen normal to inspection. Soft, non tender, non- distended, no masses, no rebound tenderness or guarding. Bowel sounds active on all four quadrants Genitourinary: Deferred Extremities: With severe weakness to bilateral lower extremities. No cyanosis, clubbing, or edema. Pulses [2+] bilaterally. No focal weakness appreciated. Neurologic: Alert to person, place, time, and situation. Affect appropriate, intact sensation. Skin: Clean,dry, and intact. No ecchymosis, no rashes, or lesions Results Result Diagram: 02/19/1730 02/19/17 0630 Medications Medications Current Medications Polyethylene Glycol (Miralax) 17 gm BID PO Last administered on 02/20/17 08:11 ; Admin Dose 17 GM; Start 02/17/17 at 23:00 Prasugrel (Effient) 10 mg DAILY PO Last administered on 02/20/17 08:12; Admin Dose 10 MG; Start 02/18/17 at 09:00 Ropinirole HCl (Requip) 0.25 mg HS PO Last administered on 02/19/17 20:52; Admin Dose 0.25 MG; Start 02/17/17 at 23:00 Tamsulosin HCl (Flomax) 0.4 mg DAILY@21 PO Last administered on 02/19/17 20:53 ; Admin Dose 0.4 MG; Start 02/17/17 at 23:00 Zolpidem Tartrate (Ambien) 10 mg HS PRN PO INSOMNIA Last administered on 21:41; Admin Dose 10 MG; Start 02/17/17 at 23:15 Multivit/Ca Carb/ B Cmplx/FA/Prenat (Paulina-Chrissy) 1 tab DAILY PO Last administered on 02/20/17 08:12; Admin Dose 1 TAB; Start 02/18/17 at 09:00 Nicotine (Nicoderm 14 Mg/ 24hr) 1 patch DAILY TRANSDERM Last administered on 08:17; Admin Dose 1 PATCH; Start 02/18/17 at 09:00 Hydralazine HCl (Apresoline) 50 mg BID PO Last administered on 02/20/17 08:12 ; Admin Dose 50 MG; Start 02/17/17 at 23:00 Acetaminophen/ Hydrocodone Bitart ([place] (5/325)) 2 tab Q4H PRN PO PAIN Last administered on 02/19/17 08:38; Admin Dose 2 TAB; Start 02/17/17 at 23:30 Acetaminophen/ Hydrocodone Bitart ([place] (5/325)) 1 tab Q4H PRN PO PAIN; Start 02/17/17 at 23:30 Isosorbide Mononitrate (Imdur) 60 mg DAILY PO Last administered on 02/20/17 08 :12; Admin Dose 60 MG; Start 02/18/17 at 09:00 Fish Oil (Fish Oil) 1,000 mg BID PO Last administered on 02/20/17 08:11; Admin Dose 1,000 MG; Start 02/17/17 at 23:15 Docusate Sodium (Colace) 100 mg BID PO Last administered on 02/20/17 08:11; Admin Dose 100 MG; Start 02/17/17 at 23:15 Epoetin Keven (Epogen (Esrd)) 6,000 units MoWeFr@17 SC Last administered on 02/19 17:40; Admin Dose 6,000 UNITS; Start 02/19/17 at 17:00 Ergocalciferol (Drisdol) 50,000 unit Tu@09 PO ; Start 02/23/17 at 09:00 Famotidine (Pepcid) 20 mg DAILY PO Last administered on 02/20/17 08:11; Admin Dose 20 MG; Start 02/18/17 at 09:00 Febuxostat (Uloric) 40 mg DAILY PO Last administered on 02/20/17 08:11; Admin Dose 40 MG; Start 02/18/17 at 09:00 Acetaminophen (Tylenol Tab) 650 mg Q6H PRN PO PAIN AND OR ELEVATED TEMP; Start 02/17/17 at 23:15 Atorvastatin Calcium (Lipitor) 10 mg DAILY@21 PO Last administered on 20:52; Admin Dose 10 MG; Start 02/17/17 at 23:15 Bisacodyl 10 mg 10 mg DAILY PRN PO CONSTIPATION; Start 02/17/17 at 23:30 Ceftriaxone Sodium (Rocephin) 50 ml @ 100 mls/hr Q24H IVPB Last administered on 02/20/17 12:14; Admin Dose 100 MLS/HR; Start 02/18/17 at 11:30; Stop at 12:30 Clonidine (Catapres) 0.1 mg TID PRN PO SBP ABOVE 160mmHg; Start 02/17/17 at 23: 30 Carvedilol (Coreg) 6.25 mg BID PO Last administered on 02/20/17 08:12; Admin Dose 6.25 MG; Start 02/18/17 at 21:00 Linagliptin (Tradjenta) 5 mg DAILY PO Last administered on 02/20/17 08:12; Admin Dose 5 MG; Start 02/18/17 at 14:36 Miscellaneous Information 1 ea NOTE XX ; Start 02/18/17 at 15:00 Glucose (Glutose) 15 gm Q15M PRN PO DECREASED GLUCOSE; Start 02/18/17 at 15:00 Glucose (Glutose) 22.5 gm Q15M PRN PO DECREASED GLUCOSE; Start 02/18/17 at 15: 00 Dextrose (D50w Syringe) 25 ml Q15M PRN IV DECREASED GLUCOSE; Start 02/18/17 at 15:00 Dextrose (D50w Syringe) 50 ml Q15M PRN IV DECREASED GLUCOSE; Start 02/18/17 at 15:00 Glucagon (Glucagen) 1 mg Q15M PRN IM DECREASED GLUCOSE; Start 02/18/17 at 15:00 Glucose (Glutose) 15 gm Q15M PRN BUCCAL DECREASED GLUCOSE; Start 02/18/17 at 15 :00 Nifedipine (Procardia Xl) 30 mg BID PO Last administered on 02/20/17 08:13; Admin Dose 30 MG; Start 02/18/17 at 21:00 RADHA DE SOUZA MD Feb 20, 2017 15:32
[2017-02-20 19:10] VITALS: BP 138/60; PULSE 86; RESP 16
[2017-02-20] MEDS: TAMSULOSIN (SR) 0.4 MG CAP PO SCH (20:37)
[2017-02-20] MEDS: ATORVASTATIN 10 MG TAB PO SCH (20:38)
[2017-02-20] MEDS: ROPINIROLE 0.25 MG TAB PO SCH (20:38)
[2017-02-21 02:00] VITALS: BP 123/59; PULSE 92; RESP 16
[2017-02-21 08:00] VITALS: BP 159/74; PULSE 81; RESP 18
[2017-02-21] MEDS: FEBUXOSTAT 40 MG TABLET PO SCH (08:36)
[2017-02-21] MEDS: PRASUGREL HYDROCHLORIDE 10 MG TABLET PO SCH (08:36)
[2017-02-21] MEDS: NICOTINE (14 MG/24 HR) PATCH TRANSDERM SCH (08:36)
[2017-02-21] MEDS: MULTIVIT/CA CARB/B CMPLX/FA TAB PO SCH (08:37)
[2017-02-21] MEDS: LINAGLIPTIN 5 MG TABLET PO SCH (08:37)
[2017-02-21] MEDS: FAMOTIDINE 20 MG TAB PO SCH (08:38)
[2017-02-21] MEDS: FISH OIL 1,000 MG CAP PO SCH ×2 (08:38→21:05)
[2017-02-21] MEDS: SEVELAMER 800 MG TAB PO SCH ×3 (08:38→17:47)
[2017-02-21] MEDS: ISOSORBIDE MONONITRATE(SR)60 MG TAB PO SCH (08:38)
[2017-02-21] MEDS: NIFEdipine (XL) 30 MG TAB PO SCH ×2 (08:38→21:06)
[2017-02-21] MEDS: POLYETHYLENE GLYCOL 17 GM PACKET PO SCH ×2 (08:39→21:00)
[2017-02-21] MEDS: BALSAM PERU/CASTOR OIL 60 GM TUBE TOP SCH ×2 (08:39→21:07)
[2017-02-21] MEDS: DOCUSATE SODIUM 100 MG CAP PO SCH ×2 (09:00→21:00)
[2017-02-21] MEDS: CEFTRIAXONE 1 GM/50 ML (PMX) 50 ML IVPB SCH (11:16)
--- NOTE | 2017-02-21 11:18 | PN ---
Date/Time of Note Date/Time of Note DATE: 02/21/17 TIME: 11:17 Assessment/Plan VTE Prophylaxis VTE Prophylaxis Intervention: other Lines/Catheters [facility] Lock Urinary Cath still in place: No Assessment/Plan Chief Complaint/Hosp Course renal follow up SUBJECTIVE: The patient is s/p HD two days ago. No other events noted. No vitals. No fevers, chills, nausea, vomiting. OBJECTIVE: HEENT: Head is normocephalic. Pupils are reactive to light. NECK: Supple. HEART: Regular rate. LUNGS: Show diminished breath sounds at base. ABDOMEN: Soft, nontender to palpation. No rebound or guarding. EXTREMITIES: Negative for clubbing, cyanosis. No edema. DERMATOLOGIC: No rashes. MUSCULOSKELETAL: No joint effusions. NEUROLOGIC: No change in exam. MEDICATIONS: The patient's medications have been reviewed. ASSESSMENT AND PLAN: 1. End-stage renal disease. Plan for hemodialysis on Wednesday 2. Anemia. Monitor hemoglobin and hematocrit levels. Continue Epogen. 3. Mineral bone disorder. Continue to monitor calcium and phosphorus levels. 4. Congestive heart failure. Continue medical management. 5. Hypertension. Continue current blood pressure regimen. 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 7. Diabetes. Continue Accu-Cheks and insulin sliding scale. 8. Thrombocytopenia. Continue to monitor. Consider holding heparin. Problems: Exam/Review of Systems Vital Signs Vitals Vital Signs Date Time Temp Pulse Resp B/P Pulse Ox O2 Delivery O2 Flow Rate FiO2 02/21/17 08:00 98.6 81 18 159/74 96 02/21/17 02:00 Room Air Intake and Output 02/20/17 02/20/17 02/21/17 15:00 23:00 07:00 Intake Total 50 ml 480 ml Output Total 150 ml Balance 50 ml 330 ml Results Result Diagram: 02/19/17 0630 02/19/17 0630 Medications Medications Current Medications Polyethylene Glycol (Miralax) 17 gm BID PO Last administered on 02/20/17 20:34 ; Admin Dose 17 GM; Start 02/17/17 at 23:00 Prasugrel (Effient) 10 mg DAILY PO Last administered on 02/21/17 08:36; Admin Dose 10 MG; Start 02/18/17 at 09:00 Ropinirole HCl (Requip) 0.25 mg HS PO Last administered on 02/20/17 20:38; Admin Dose 0.25 MG; Start 02/17/17 at 23:00 Tamsulosin HCl (Flomax) 0.4 mg DAILY@21 PO Last administered on 02/20/17 20:37 ; Admin Dose 0.4 MG; Start 02/17/17 at 23:00 Zolpidem Tartrate (Ambien) 10 mg HS PRN PO INSOMNIA Last administered on 21:41; Admin Dose 10 MG; Start 02/17/17 at 23:15 Multivit/Ca Carb/ B Cmplx/FA/Prenat (Paulina-Chrissy) 1 tab DAILY PO Last administered on 02/21/17 08:37; Admin Dose 1 TAB; Start 02/18/17 at 09:00 Nicotine (Nicoderm 14 Mg/ 24hr) 1 patch DAILY TRANSDERM Last administered on 08:36; Admin Dose 1 PATCH; Start 02/18/17 at 09:00 Hydralazine HCl (Apresoline) 50 mg BID PO Last administered on 02/21/17 08:38 ; Admin Dose 50 MG; Start 02/17/17 at 23:00 Acetaminophen/ Hydrocodone Bitart ([place] (5/325)) 2 tab Q4H PRN PO PAIN Last administered on 02/19/17 08:38; Admin Dose 2 TAB; Start 02/17/17 at 23:30 Acetaminophen/ Hydrocodone Bitart ([place] (5/325)) 1 tab Q4H PRN PO PAIN; Start 02/17/17 at 23:30 Isosorbide Mononitrate (Imdur) 60 mg DAILY PO Last administered on 02/21/17 08 :38; Admin Dose 60 MG; Start 02/18/17 at 09:00 Fish Oil (Fish Oil) 1,000 mg BID PO Last administered on 02/21/17 08:38; Admin Dose 1,000 MG; Start 02/17/17 at 23:15 Docusate Sodium (Colace) 100 mg BID PO Last administered on 02/20/17 20:38; Admin Dose 100 MG; Start 02/17/17 at 23:15 Epoetin Keven (Epogen (Esrd)) 6,000 units MoWeFr@17 SC Last administered on 02/19 17:40; Admin Dose 6,000 UNITS; Start 02/19/17 at 17:00 Ergocalciferol (Drisdol) 50,000 unit Tu@09 PO ; Start 02/23/17 at 09:00 Famotidine (Pepcid) 20 mg DAILY PO Last administered on 02/21/17 08:38; Admin Dose 20 MG; Start 02/18/17 at 09:00 Febuxostat (Uloric) 40 mg DAILY PO Last administered on 02/21/17 08:36; Admin Dose 40 MG; Start 02/18/17 at 09:00 Acetaminophen (Tylenol Tab) 650 mg Q6H PRN PO PAIN AND OR ELEVATED TEMP; Start 02/17/17 at 23:15 Atorvastatin Calcium (Lipitor) 10 mg DAILY@21 PO Last administered on 20:38; Admin Dose 10 MG; Start 02/17/17 at 23:15 Bisacodyl 10 mg 10 mg DAILY PRN PO CONSTIPATION; Start 02/17/17 at 23:30 Ceftriaxone Sodium (Rocephin) 50 ml @ 100 mls/hr Q24H IVPB Last administered on 02/20/17 12:14; Admin Dose 100 MLS/HR; Start 02/18/17 at 11:30; Stop at 12:30 Clonidine (Catapres) 0.1 mg TID PRN PO SBP ABOVE 160mmHg; Start 02/17/17 at 23: 30 Carvedilol (Coreg) 6.25 mg BID PO Last administered on 02/21/17 08:37; Admin Dose 6.25 MG; Start 02/18/17 at 21:00 Linagliptin (Tradjenta) 5 mg DAILY PO Last administered on 02/21/17 08:37; Admin Dose 5 MG; Start 02/18/17 at 14:36 Miscellaneous Information 1 ea NOTE XX ; Start 02/18/17 at 15:00 Glucose (Glutose) 15 gm Q15M PRN PO DECREASED GLUCOSE; Start 02/18/17 at 15:00 Glucose (Glutose) 22.5 gm Q15M PRN PO DECREASED GLUCOSE; Start 02/18/17 at 15: 00 Dextrose (D50w Syringe) 25 ml Q15M PRN IV DECREASED GLUCOSE; Start 02/18/17 at 15:00 Dextrose (D50w Syringe) 50 ml Q15M PRN IV DECREASED GLUCOSE; Start 02/18/17 at 15:00 Glucagon (Glucagen) 1 mg Q15M PRN IM DECREASED GLUCOSE; Start 02/18/17 at 15:00 Glucose (Glutose) 15 gm Q15M PRN BUCCAL DECREASED GLUCOSE; Start 02/18/17 at 15 :00 Nifedipine (Procardia Xl) 30 mg BID PO Last administered on 02/21/17 08:38; Admin Dose 30 MG; Start 02/18/17 at 21:00 IGOR MORFIN DO Feb 21, 2017 11:18
[2017-02-21 14:00] VITALS: BP 149/82; PULSE 81; RESP 18
--- NOTE | 2017-02-21 15:46 | CONS ---
Date/Time of Note Date/Time of Note DATE: 02/21/17 TIME: 15:45 Assessment/Plan Assessment/Plan Chief Complaint/Hosp Course SUBJECTIVE DATA: No acute changes, no fevers, looks comfortable MICROBIOLOGY: Blood culture on February 07 grew Klebsiella pneumonia. Urine culture grew Klebsiella and Proteus mirabilis. Repeat bld cx negative INDWELLINGS: Right chest PermCath, [place]. PHYSICAL EXAMINATION: GENERAL: This is an obese, chronically ill-appearing, elderly man, who is in no distress. HEENT: Head atraumatic, normocephalic. Sclerae anicteric. Buccal mucosa dry. NECK: Supple. CHEST: Chest rise symmetrical. Breath sounds clear. Diminished at the bases. HEART: S1, S2. ABDOMEN: Soft, bowel sounds present. EXTREMITIES: Without cyanosis. ASSESSMENT: 1. Status post systemic inflammatory response syndrome with low- grade fevers and chills. 2. Multidrug resistant urinary tract infection with bacteremia, repeat blood cultures negative. 3. 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 Patient received IVIG, neurology follows him. 4. Diabetes. 5. End-stage renal disease, hemodialysis dependent. PLAN: The patient remains stable. Complete abx for couple more days DW staff Problems: Consultation Date/Type/Reason Admit Date/Time Feb 17, 2017 at 20:40 Type of Consultation: ID Exam/Review of Systems Vital Signs Vitals Vital Signs Date Time Temp Pulse Resp B/P Pulse Ox O2 Delivery O2 Flow Rate FiO2 02/21/17 14:00 97.8 81 18 149/82 96 Room Air Intake and Output 02/20/17 02/20/17 02/21/17 15:00 23:00 07:00 Intake Total 50 ml 480 ml Output Total 150 ml Balance 50 ml 330 ml Results Result Diagram: 02/19/17 0630 02/19/17 0630 Medications Medications Current Medications Polyethylene Glycol (Miralax) 17 gm BID PO Last administered on 02/20/17 20:34 ; Admin Dose 17 GM; Start 02/17/17 at 23:00 Prasugrel (Effient) 10 mg DAILY PO Last administered on 02/21/17 08:36; Admin Dose 10 MG; Start 02/18/17 at 09:00 Ropinirole HCl (Requip) 0.25 mg HS PO Last administered on 02/20/17 20:38; Admin Dose 0.25 MG; Start 02/17/17 at 23:00 Tamsulosin HCl (Flomax) 0.4 mg DAILY@21 PO Last administered on 02/20/17 20:37 ; Admin Dose 0.4 MG; Start 02/17/17 at 23:00 Zolpidem Tartrate (Ambien) 10 mg HS PRN PO INSOMNIA Last administered on 21:41; Admin Dose 10 MG; Start 02/17/17 at 23:15 Multivit/Ca Carb/ B Cmplx/FA/Prenat (Paulina-Chrissy) 1 tab DAILY PO Last administered on 02/21/17 08:37; Admin Dose 1 TAB; Start 02/18/17 at 09:00 Nicotine (Nicoderm 14 Mg/ 24hr) 1 patch DAILY TRANSDERM Last administered on 08:36; Admin Dose 1 PATCH; Start 02/18/17 at 09:00 Hydralazine HCl (Apresoline) 50 mg BID PO Last administered on 02/21/17 08:38 ; Admin Dose 50 MG; Start 02/17/17 at 23:00 Acetaminophen/ Hydrocodone Bitart ([place] (5/325)) 2 tab Q4H PRN PO PAIN Last administered on 02/19/17 08:38; Admin Dose 2 TAB; Start 02/17/17 at 23:30 Acetaminophen/ Hydrocodone Bitart ([place] (5/325)) 1 tab Q4H PRN PO PAIN; Start 02/17/17 at 23:30 Isosorbide Mononitrate (Imdur) 60 mg DAILY PO Last administered on 02/21/17 08 :38; Admin Dose 60 MG; Start 02/18/17 at 09:00 Fish Oil (Fish Oil) 1,000 mg BID PO Last administered on 02/21/17 08:38; Admin Dose 1,000 MG; Start 02/17/17 at 23:15 Docusate Sodium (Colace) 100 mg BID PO Last administered on 02/20/17 20:38; Admin Dose 100 MG; Start 02/17/17 at 23:15 Epoetin Keven (Epogen (Esrd)) 6,000 units MoWeFr@17 SC Last administered on 02/19 17:40; Admin Dose 6,000 UNITS; Start 02/19/17 at 17:00 Ergocalciferol (Drisdol) 50,000 unit Tu@09 PO ; Start 02/23/17 at 09:00 Famotidine (Pepcid) 20 mg DAILY PO Last administered on 02/21/17 08:38; Admin Dose 20 MG; Start 02/18/17 at 09:00 Febuxostat (Uloric) 40 mg DAILY PO Last administered on 02/21/17 08:36; Admin Dose 40 MG; Start 02/18/17 at 09:00 Acetaminophen (Tylenol Tab) 650 mg Q6H PRN PO PAIN AND OR ELEVATED TEMP; Start 02/17/17 at 23:15 Atorvastatin Calcium (Lipitor) 10 mg DAILY@21 PO Last administered on 20:38; Admin Dose 10 MG; Start 02/17/17 at 23:15 Bisacodyl 10 mg 10 mg DAILY PRN PO CONSTIPATION; Start 02/17/17 at 23:30 Ceftriaxone Sodium (Rocephin) 50 ml @ 100 mls/hr Q24H IVPB Last administered on 02/21/17 11:16; Admin Dose 100 MLS/HR; Start 02/18/17 at 11:30; Stop at 12:30 Clonidine (Catapres) 0.1 mg TID PRN PO SBP ABOVE 160mmHg; Start 02/17/17 at 23: 30 Carvedilol (Coreg) 6.25 mg BID PO Last administered on 02/21/17 08:37; Admin Dose 6.25 MG; Start 02/18/17 at 21:00 Linagliptin (Tradjenta) 5 mg DAILY PO Last administered on 02/21/17 08:37; Admin Dose 5 MG; Start 02/18/17 at 14:36 Miscellaneous Information 1 ea NOTE XX ; Start 02/18/17 at 15:00 Glucose (Glutose) 15 gm Q15M PRN PO DECREASED GLUCOSE; Start 02/18/17 at 15:00 Glucose (Glutose) 22.5 gm Q15M PRN PO DECREASED GLUCOSE; Start 02/18/17 at 15: 00 Dextrose (D50w Syringe) 25 ml Q15M PRN IV DECREASED GLUCOSE; Start 02/18/17 at 15:00 Dextrose (D50w Syringe) 50 ml Q15M PRN IV DECREASED GLUCOSE; Start 02/18/17 at 15:00 Glucagon (Glucagen) 1 mg Q15M PRN IM DECREASED GLUCOSE; Start 02/18/17 at 15:00 Glucose (Glutose) 15 gm Q15M PRN BUCCAL DECREASED GLUCOSE; Start 02/18/17 at 15 :00 Nifedipine (Procardia Xl) 30 mg BID PO Last administered on 02/21/17 08:38; Admin Dose 30 MG; Start 02/18/17 at 21:00 JAROD NORIEGA NP Feb 21, 2017 15:46
--- NOTE | 2017-02-21 17:28 | CONS ---
Date/Time of Note Date/Time of Note DATE: 02/21/17 TIME: 17:26 Assessment/Plan Assessment/Plan Additional Assessment/Plan 1. 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 -Status post treatment with pulse dose steroids followed by IVIG. -Continue PT/OT -Follow-up with outpatient studies EMG/NCV to evaluate for possible demyelinating polyneuropathy such as CIDP 2. 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 Hypertension, poorly controlled. -Uptitrate Coreg to 6.25. Will monitor blood pressure closely and will adjust as indicated. 4. End-stage renal disease, on hemodialysis. 5. Status post sepsis bacteremia with Multidrug resistant urinary tract infection. UA still showing evidence of infection. -On abx. Follow-up with ID recommendations. 6. Coronary artery disease. -Continue home medications. 7. Dyslipidemia. -Continue statin/fish oil. 8. Anemia of chronic kidney disease. -HH stable. Will monitor. 9. Type 2 diabetes mellitus. Latest A1c 4.9 with good glycemic control. -Stable. No need for insulin in-house. We will start patient on Tradjenta as metformin is not a good choice secondary to renal clearance. -Accu-Cheks twice daily and carbohydrate controlled diet. 10. Benign prostatic hypertrophy. -Continue Flomax. 11. Obesity. -Weight reduction advised 12. Nicotine abuse. -Cessation advised. Prophylaxis: Ambulation/SCDs Consultation Date/Type/Reason Admit Date/Time Feb 17, 2017 at 20:40 Type of Consultation: INTERNAL MEDICINE Exam/Review of Systems Vital Signs Vitals Vital Signs Date Time Temp Pulse Resp B/P Pulse Ox O2 Delivery O2 Flow Rate FiO2 02/21/17 14:00 97.8 81 18 149/82 96 Room Air Intake and Output 02/20/17 02/20/17 02/21/17 15:00 23:00 07:00 Intake Total 50 ml 480 ml Output Total 150 ml Balance 50 ml 330 ml Exam Constitutional: alert Psych: no complaints Head: normocephalic Neck: non-tender, supple Respiratory: clear to auscultation, normal air movement Cardiovascular: nl pulses, regular rate and rhythm Gastrointestinal: non-tender, soft Musculoskeletal: nl extremities to inspection, nl gait and stance 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: 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, nl mental status, nl speech, nl strength Results Result Diagram: 02/19/17 0630 02/19/17 0630 Medications Medications Current Medications Polyethylene Glycol (Miralax) 17 gm BID PO Last administered on 02/20/17 20:34 ; Admin Dose 17 GM; Start 02/17/17 at 23:00 Prasugrel (Effient) 10 mg DAILY PO Last administered on 02/21/17 08:36; Admin Dose 10 MG; Start 02/18/17 at 09:00 Ropinirole HCl (Requip) 0.25 mg HS PO Last administered on 02/20/17 20:38; Admin Dose 0.25 MG; Start 02/17/17 at 23:00 Tamsulosin HCl (Flomax) 0.4 mg DAILY@21 PO Last administered on 02/20/17 20:37 ; Admin Dose 0.4 MG; Start 02/17/17 at 23:00 Zolpidem Tartrate (Ambien) 10 mg HS PRN PO INSOMNIA Last administered on 21:41; Admin Dose 10 MG; Start 02/17/17 at 23:15 Multivit/Ca Carb/ B Cmplx/FA/Prenat (Paulina-Chrissy) 1 tab DAILY PO Last administered on 02/21/17 08:37; Admin Dose 1 TAB; Start 02/18/17 at 09:00 Nicotine (Nicoderm 14 Mg/ 24hr) 1 patch DAILY TRANSDERM Last administered on 08:36; Admin Dose 1 PATCH; Start 02/18/17 at 09:00 Hydralazine HCl (Apresoline) 50 mg BID PO Last administered on 02/21/17 08:38 ; Admin Dose 50 MG; Start 02/17/17 at 23:00 Acetaminophen/ Hydrocodone Bitart ([place] (5/325)) 2 tab Q4H PRN PO PAIN Last administered on 02/19/17 08:38; Admin Dose 2 TAB; Start 02/17/17 at 23:30 Acetaminophen/ Hydrocodone Bitart ([place] (5/325)) 1 tab Q4H PRN PO PAIN; Start 02/17/17 at 23:30 Isosorbide Mononitrate (Imdur) 60 mg DAILY PO Last administered on 02/21/17 08 :38; Admin Dose 60 MG; Start 02/18/17 at 09:00 Fish Oil (Fish Oil) 1,000 mg BID PO Last administered on 02/21/17 08:38; Admin Dose 1,000 MG; Start 02/17/17 at 23:15 Docusate Sodium (Colace) 100 mg BID PO Last administered on 02/20/17 20:38; Admin Dose 100 MG; Start 02/17/17 at 23:15 Epoetin Keven (Epogen (Esrd)) 6,000 units MoWeFr@17 SC Last administered on 02/19 17:40; Admin Dose 6,000 UNITS; Start 02/19/17 at 17:00 Ergocalciferol (Drisdol) 50,000 unit Tu@09 PO ; Start 02/23/17 at 09:00 Famotidine (Pepcid) 20 mg DAILY PO Last administered on 02/21/17 08:38; Admin Dose 20 MG; Start 02/18/17 at 09:00 Febuxostat (Uloric) 40 mg DAILY PO Last administered on 02/21/17 08:36; Admin Dose 40 MG; Start 02/18/17 at 09:00 Acetaminophen (Tylenol Tab) 650 mg Q6H PRN PO PAIN AND OR ELEVATED TEMP; Start 02/17/17 at 23:15 Atorvastatin Calcium (Lipitor) 10 mg DAILY@21 PO Last administered on 20:38; Admin Dose 10 MG; Start 02/17/17 at 23:15 Bisacodyl 10 mg 10 mg DAILY PRN PO CONSTIPATION; Start 02/17/17 at 23:30 Ceftriaxone Sodium (Rocephin) 50 ml @ 100 mls/hr Q24H IVPB Last administered on 02/21/17 11:16; Admin Dose 100 MLS/HR; Start 02/18/17 at 11:30; Stop at 12:30 Clonidine (Catapres) 0.1 mg TID PRN PO SBP ABOVE 160mmHg; Start 02/17/17 at 23: 30 Carvedilol (Coreg) 6.25 mg BID PO Last administered on 02/21/17 08:37; Admin Dose 6.25 MG; Start 02/18/17 at 21:00 Linagliptin (Tradjenta) 5 mg DAILY PO Last administered on 02/21/17 08:37; Admin Dose 5 MG; Start 02/18/17 at 14:36 Miscellaneous Information 1 ea NOTE XX ; Start 02/18/17 at 15:00 Glucose (Glutose) 15 gm Q15M PRN PO DECREASED GLUCOSE; Start 02/18/17 at 15:00 Glucose (Glutose) 22.5 gm Q15M PRN PO DECREASED GLUCOSE; Start 02/18/17 at 15: 00 Dextrose (D50w Syringe) 25 ml Q15M PRN IV DECREASED GLUCOSE; Start 02/18/17 at 15:00 Dextrose (D50w Syringe) 50 ml Q15M PRN IV DECREASED GLUCOSE; Start 02/18/17 at 15:00 Glucagon (Glucagen) 1 mg Q15M PRN IM DECREASED GLUCOSE; Start 02/18/17 at 15:00 Glucose (Glutose) 15 gm Q15M PRN BUCCAL DECREASED GLUCOSE; Start 02/18/17 at 15 :00 Nifedipine (Procardia Xl) 30 mg BID PO Last administered on 02/21/17 08:38; Admin Dose 30 MG; Start 02/18/17 at 21:00 RADHA DE SOUZA MD Feb 21, 2017 17:28
[2017-02-21 19:35] VITALS: BP 152/65; RESP 18
[2017-02-21] MEDS: TAMSULOSIN (SR) 0.4 MG CAP PO SCH (21:05)
[2017-02-21] MEDS: ATORVASTATIN 10 MG TAB PO SCH (21:05)
[2017-02-21] MEDS: ROPINIROLE 0.25 MG TAB PO SCH (21:06)
[2017-02-22] VITALS (15 sets, daily range): BP systolic 94–190; BP diastolic 47–90; PULSE 64–81; RESP 18–20
[2017-02-22] MEDS: ZOLPIDEM 5 MG TAB PO PRN ×2 (00:37→20:44)
[2017-02-22 07:05] LABS: ABNORMAL IP MESSAGE 1; BASOPHILS % 0.4 % (0.0-2.0); EOSINOPHILS # 0.1 10^3/ul (0.0-0.5); EOSINOPHILS % 2.8 % (0.0-7.0); HEMATOCRIT 31.2 % (42.0-52.0); HEMOGLOBIN 9.9 g/dl (14.0-18.0); LYMPHOCYTES # 0.7 10^3/ul (0.8-2.9); LYMPHOCYTES % 14.3 % (15.0-51.0); MEAN CORPUSCULAR HEMOGLOBIN 32.2 pg (29.0-33.0); MEAN CORPUSCULAR HGB CONC 31.7 g/dl (32.0-37.0); MEAN CORPUSCULAR VOLUME 101.6 fl (82.0-101.0); MEAN PLATELET VOLUME 11.7 fl (7.4-10.4); MONOCYTE # 0.5 10^3/ul (0.3-0.9); MONOCYTES % 9.9 % (0.0-11.0); NEUTROPHIL # 3.6 10^3/ul (1.6-7.5); NEUTROPHILS % 71.6 % (39.0-77.0); PLATELET COUNT 95 10^3/UL (140-415); POSITIVE DIFF @See below; RED BLOOD COUNT 3.07 10^6/ul (4.70-6.10); RED CELL DISTRIBUTION WIDTH 14.8 % (11.5-14.5)
[2017-02-22 07:26] LABS: ALBUMIN 3.1 g/dl (3.3-4.9); ALBUMIN/GLOBULIN RATIO 0.7; BILIRUBIN,INDIRECT 0.1 mg/dl (0-1.1); BILIRUBIN,TOTAL 0.1 mg/dl (0.2-1.3); CALCIUM 8.8 mg/dl (8.4-10.2); CREATININE 8.15 mg/dl (0.61-1.24); INR 0.91; POTASSIUM 4.5 mmol/L (3.5-5.1); PROTIME 12.3 Sec (12.2-14.2); TOTAL PROTEIN 7.5 g/dl (6.1-8.1)
[2017-02-22 07:27] LABS: PARTIAL THROMBOPLASTIN TIME 30.5 Sec (25.0-35.0)
[2017-02-22] MEDS: SEVELAMER 800 MG TAB PO SCH ×3 (08:26→17:50)
[2017-02-22] MEDS: POLYETHYLENE GLYCOL 17 GM PACKET PO SCH ×2 (08:26→20:33)
[2017-02-22] MEDS: FISH OIL 1,000 MG CAP PO SCH ×2 (08:27→20:34)
[2017-02-22] MEDS: PRASUGREL HYDROCHLORIDE 10 MG TABLET PO SCH (08:27)
[2017-02-22] MEDS: NICOTINE (14 MG/24 HR) PATCH TRANSDERM SCH (08:27)
[2017-02-22] MEDS: LINAGLIPTIN 5 MG TABLET PO SCH (08:27)
[2017-02-22] MEDS: NIFEdipine (XL) 30 MG TAB PO SCH ×2 (08:28→20:34)
[2017-02-22] MEDS: FAMOTIDINE 20 MG TAB PO SCH (08:28)
[2017-02-22] MEDS: ISOSORBIDE MONONITRATE(SR)60 MG TAB PO SCH (08:28)
[2017-02-22] MEDS: FEBUXOSTAT 40 MG TABLET PO SCH (08:28)
[2017-02-22] MEDS: DOCUSATE SODIUM 100 MG CAP PO SCH ×2 (08:28→20:34)
[2017-02-22] MEDS: MULTIVIT/CA CARB/B CMPLX/FA TAB PO SCH (08:28)
[2017-02-22] MEDS: BALSAM PERU/CASTOR OIL 60 GM TUBE TOP SCH ×2 (08:29→20:33)
[2017-02-22] MEDS: CEFTRIAXONE 1 GM/50 ML (PMX) 50 ML IVPB SCH (11:10)
--- NOTE | 2017-02-22 11:53 | CONS ---
Date/Time of Note Date/Time of Note DATE: 02/22/17 TIME: 11:52 Consult Date/Type/Reason Admit Date/Time Feb 17, 2017 at 20:40 Type of Consultation: INTERNAL MEDICINE Objective Vital Signs Date Time Temp Pulse Resp B/P Pulse Ox O2 Delivery O2 Flow Rate FiO2 02/22/17 07:30 98.6 80 18 164/63 94 02/21/17 14:00 Room Air Intake and Output 02/21/17 02/21/17 02/22/17 15:00 23:00 07:00 Intake Total 50 ml 480 ml 400 ml Output Total 450 ml Balance 50 ml 480 ml -50 ml INTERDISCIPLINARY TEAM CONFERENCE BOWEL- Cont BLADDER-urinary retention, requires I/O cath SKIN- intact OT- DRESSING-mod/max BATHING-max TOILETING-max PT- BED MOBILITY-mod TRANSFERS-max x 2 AMBULATION-UA W.C. MOBILITY-mod 50 feet SPEECH- COGNITION-min A/P- Interdisciplinary team conference held today. Please see interdisciplinary sheet. Working toward dEbonycEbony on 03/05 with post discharge follow up of physical therapy, occupational therapy. Results/Medications Result Diagram: 02/22/1762402/22/1725 Results 24 hrs Laboratory Tests Test 02/22/17 06:25 White Blood Count 5.0 # Red Blood Count 3.07 L Hemoglobin 9.9 L Hematocrit 31.2 L Mean Corpuscular Volume 101.6 H Mean Corpuscular Hemoglobin 32.2 Mean Corpuscular Hemoglobin Concent 31.7 L Red Cell Distribution Width 14.8 H Platelet Count 95 L Mean Platelet Volume 11.7 H Neutrophils % 71.6 Lymphocytes % 14.3 L Monocytes % 9.9 Eosinophils % 2.8 Basophils % 0.4 Nucleated Red Blood Cells % 0.0 Neutrophils # 3.6 Lymphocytes # 0.7 L Monocytes # 0.5 Eosinophils # 0.1 Basophils # 0.0 Nucleated Red Blood Cells # 0.0 Prothrombin Time 12.3 Prothrombin Time Ratio 1.0 INR International Normalized Ratio 0.91 Activated Partial Thromboplast Time 30.5 Sodium Level 137 Potassium Level 4.5 Chloride Level 105 Carbon Dioxide Level 22 Anion Gap 15 Blood Urea Nitrogen 75 H Creatinine 8.15 H Glucose Level 96 Calcium Level 8.8 Total Bilirubin 0.1 L Direct Bilirubin 0.00 Indirect Bilirubin 0.1 Aspartate Amino Transf (AST/SGOT) 33 Alanine Aminotransferase (ALT/SGPT) 55 Alkaline Phosphatase 78 Total Protein 7.5 Albumin 3.1 L Globulin 4.40 H Albumin/Globulin Ratio 0.70 Medications Current Medications Polyethylene Glycol (Miralax) 17 gm BID PO Last administered on 02/22/17 08:26 ; Admin Dose 17 GM; Start 02/17/17 at 23:00 Prasugrel (Effient) 10 mg DAILY PO Last administered on 02/22/17 08:27; Admin Dose 10 MG; Start 02/18/17 at 09:00 Ropinirole HCl (Requip) 0.25 mg HS PO Last administered on 02/21/17 21:06; Admin Dose 0.25 MG; Start 02/17/17 at 23:00 Tamsulosin HCl (Flomax) 0.4 mg DAILY@21 PO Last administered on 02/21/17 21:05 ; Admin Dose 0.4 MG; Start 02/17/17 at 23:00 Zolpidem Tartrate (Ambien) 10 mg HS PRN PO INSOMNIA Last administered on 00:37; Admin Dose 10 MG; Start 02/17/17 at 23:15 Multivit/Ca Carb/ B Cmplx/FA/Prenat (Paulina-Chrissy) 1 tab DAILY PO Last administered on 02/22/17 08:28; Admin Dose 1 TAB; Start 02/18/17 at 09:00 Nicotine (Nicoderm 14 Mg/ 24hr) 1 patch DAILY TRANSDERM Last administered on 08:27; Admin Dose 1 PATCH; Start 02/18/17 at 09:00 Hydralazine HCl (Apresoline) 50 mg BID PO Last administered on 02/22/17 08:28 ; Admin Dose 50 MG; Start 02/17/17 at 23:00 Acetaminophen/ Hydrocodone Bitart ([place] (5/325)) 2 tab Q4H PRN PO PAIN Last administered on 02/19/17 08:38; Admin Dose 2 TAB; Start 02/17/17 at 23:30 Acetaminophen/ Hydrocodone Bitart ([place] (5/325)) 1 tab Q4H PRN PO PAIN; Start 02/17/17 at 23:30 Isosorbide Mononitrate (Imdur) 60 mg DAILY PO Last administered on 02/22/17 08 :28; Admin Dose 60 MG; Start 02/18/17 at 09:00 Fish Oil (Fish Oil) 1,000 mg BID PO Last administered on 02/22/17 08:27; Admin Dose 1,000 MG; Start 02/17/17 at 23:15 Docusate Sodium (Colace) 100 mg BID PO Last administered on 02/22/17 08:28; Admin Dose 100 MG; Start 02/17/17 at 23:15 Epoetin Keven (Epogen (Esrd)) 6,000 units MoWeFr@17 SC Last administered on 02/19 17:40; Admin Dose 6,000 UNITS; Start 02/19/17 at 17:00 Ergocalciferol (Drisdol) 50,000 unit Tu@09 PO ; Start 02/23/17 at 09:00 Famotidine (Pepcid) 20 mg DAILY PO Last administered on 02/22/17 08:28; Admin Dose 20 MG; Start 02/18/17 at 09:00 Febuxostat (Uloric) 40 mg DAILY PO Last administered on 02/22/17 08:28; Admin Dose 40 MG; Start 02/18/17 at 09:00 Acetaminophen (Tylenol Tab) 650 mg Q6H PRN PO PAIN AND OR ELEVATED TEMP; Start 02/17/17 at 23:15 Atorvastatin Calcium (Lipitor) 10 mg DAILY@21 PO Last administered on 21:05; Admin Dose 10 MG; Start 02/17/17 at 23:15 Bisacodyl 10 mg 10 mg DAILY PRN PO CONSTIPATION; Start 02/17/17 at 23:30 Ceftriaxone Sodium (Rocephin) 50 ml @ 100 mls/hr Q24H IVPB Last administered on 02/22/17 11:10; Admin Dose 100 MLS/HR; Start 02/18/17 at 11:30; Stop at 12:30 Clonidine (Catapres) 0.1 mg TID PRN PO SBP ABOVE 160mmHg Last administered on 02/22/17 02:15; Admin Dose 0.1 MG; Start 02/17/17 at 23:30 Carvedilol (Coreg) 6.25 mg BID PO Last administered on 02/22/17 08:27; Admin Dose 6.25 MG; Start 02/18/17 at 21:00 Linagliptin (Tradjenta) 5 mg DAILY PO Last administered on 02/22/17 08:27; Admin Dose 5 MG; Start 02/18/17 at 14:36 Miscellaneous Information 1 ea NOTE XX ; Start 02/18/17 at 15:00 Glucose (Glutose) 15 gm Q15M PRN PO DECREASED GLUCOSE; Start 02/18/17 at 15:00 Glucose (Glutose) 22.5 gm Q15M PRN PO DECREASED GLUCOSE; Start 02/18/17 at 15: 00 Dextrose (D50w Syringe) 25 ml Q15M PRN IV DECREASED GLUCOSE; Start 02/18/17 at 15:00 Dextrose (D50w Syringe) 50 ml Q15M PRN IV DECREASED GLUCOSE; Start 02/18/17 at 15:00 Glucagon (Glucagen) 1 mg Q15M PRN IM DECREASED GLUCOSE; Start 02/18/17 at 15:00 Glucose (Glutose) 15 gm Q15M PRN BUCCAL DECREASED GLUCOSE; Start 02/18/17 at 15 :00 Nifedipine (Procardia Xl) 30 mg BID PO Last administered on 02/22/17 08:28; Admin Dose 30 MG; Start 02/18/17 at 21:00 JESSICA ADAMS MD Feb 22, 2017 11:52
--- NOTE | 2017-02-22 13:03 | CONS ---
Date/Time of Note Date/Time of Note DATE: 02/22/17 TIME: 13:02 Assessment/Plan Assessment/Plan Chief Complaint/Hosp Course SUBJECTIVE DATA: No acute changes, no fevers, alert, looks comfortable, at bedside INDWELLINGS: Right chest PermCath PHYSICAL EXAMINATION: GENERAL: This is an obese, chronically ill-appearing, elderly man, who is in no distress. HEENT: Head atraumatic, normocephalic. Sclerae anicteric. Buccal mucosa dry. NECK: Supple. CHEST: Chest rise symmetrical. Breath sounds clear. Diminished at the bases. HEART: S1, S2. ABDOMEN: Soft, bowel sounds present. EXTREMITIES: Without cyanosis. ASSESSMENT: 1. Status post systemic inflammatory response syndrome with low- grade fevers and chills. 2. S/p multidrug resistant urinary tract infection with bacteremia, repeat blood cultures negative. 3. 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 Patient received IVIG, neurology follows him. 4. Diabetes. 5. End-stage renal disease, hemodialysis dependent. PLAN: The patient remains stable. Dc abx in am DW staff Problems: Consultation Date/Type/Reason Admit Date/Time Feb 17, 2017 at 20:40 Type of Consultation: ID Exam/Review of Systems Vital Signs Vitals Vital Signs Date Time Temp Pulse Resp B/P Pulse Ox O2 Delivery O2 Flow Rate FiO2 02/22/17 07:30 98.6 80 18 164/63 94 02/21/17 14:00 Room Air Intake and Output 02/21/17 02/21/17 02/22/17 15:00 23:00 07:00 Intake Total 50 ml 480 ml 400 ml Output Total 450 ml Balance 50 ml 480 ml -50 ml Results Result Diagram: 02/22/17 0625 02/22/17 0625 Results 24 hrs Laboratory Tests Test 02/22/17 06:25 White Blood Count 5.0 # Red Blood Count 3.07 L Hemoglobin 9.9 L Hematocrit 31.2 L Mean Corpuscular Volume 101.6 H Mean Corpuscular Hemoglobin 32.2 Mean Corpuscular Hemoglobin Concent 31.7 L Red Cell Distribution Width 14.8 H Platelet Count 95 L Mean Platelet Volume 11.7 H Neutrophils % 71.6 Lymphocytes % 14.3 L Monocytes % 9.9 Eosinophils % 2.8 Basophils % 0.4 Nucleated Red Blood Cells % 0.0 Neutrophils # 3.6 Lymphocytes # 0.7 L Monocytes # 0.5 Eosinophils # 0.1 Basophils # 0.0 Nucleated Red Blood Cells # 0.0 Prothrombin Time 12.3 Prothrombin Time Ratio 1.0 INR International Normalized Ratio 0.91 Activated Partial Thromboplast Time 30.5 Sodium Level 137 Potassium Level 4.5 Chloride Level 105 Carbon Dioxide Level 22 Anion Gap 15 Blood Urea Nitrogen 75 H Creatinine 8.15 H Glucose Level 96 Calcium Level 8.8 Total Bilirubin 0.1 L Direct Bilirubin 0.00 Indirect Bilirubin 0.1 Aspartate Amino Transf (AST/SGOT) 33 Alanine Aminotransferase (ALT/SGPT) 55 Alkaline Phosphatase 78 Total Protein 7.5 Albumin 3.1 L Globulin 4.40 H Albumin/Globulin Ratio 0.70 Medications Medications Current Medications Polyethylene Glycol (Miralax) 17 gm BID PO Last administered on 02/22/17 08:26 ; Admin Dose 17 GM; Start 02/17/17 at 23:00 Prasugrel (Effient) 10 mg DAILY PO Last administered on 02/22/17 08:27; Admin Dose 10 MG; Start 02/18/17 at 09:00 Ropinirole HCl (Requip) 0.25 mg HS PO Last administered on 02/21/17 21:06; Admin Dose 0.25 MG; Start 02/17/17 at 23:00 Tamsulosin HCl (Flomax) 0.4 mg DAILY@21 PO Last administered on 02/21/17 21:05 ; Admin Dose 0.4 MG; Start 02/17/17 at 23:00 Zolpidem Tartrate (Ambien) 10 mg HS PRN PO INSOMNIA Last administered on 00:37; Admin Dose 10 MG; Start 02/17/17 at 23:15 Multivit/Ca Carb/ B Cmplx/FA/Prenat (Paulina-Chrissy) 1 tab DAILY PO Last administered on 02/22/17 08:28; Admin Dose 1 TAB; Start 02/18/17 at 09:00 Nicotine (Nicoderm 14 Mg/ 24hr) 1 patch DAILY TRANSDERM Last administered on 08:27; Admin Dose 1 PATCH; Start 02/18/17 at 09:00 Hydralazine HCl (Apresoline) 50 mg BID PO Last administered on 02/22/17 08:28 ; Admin Dose 50 MG; Start 02/17/17 at 23:00 Acetaminophen/ Hydrocodone Bitart ([place] (5/325)) 2 tab Q4H PRN PO PAIN Last administered on 02/19/17 08:38; Admin Dose 2 TAB; Start 02/17/17 at 23:30 Acetaminophen/ Hydrocodone Bitart ([place] (5/325)) 1 tab Q4H PRN PO PAIN; Start 02/17/17 at 23:30 Isosorbide Mononitrate (Imdur) 60 mg DAILY PO Last administered on 02/22/17 08 :28; Admin Dose 60 MG; Start 02/18/17 at 09:00 Fish Oil (Fish Oil) 1,000 mg BID PO Last administered on 02/22/17 08:27; Admin Dose 1,000 MG; Start 02/17/17 at 23:15 Docusate Sodium (Colace) 100 mg BID PO Last administered on 02/22/17 08:28; Admin Dose 100 MG; Start 02/17/17 at 23:15 Epoetin Keven (Epogen (Esrd)) 6,000 units MoWeFr@17 SC Last administered on 02/19 17:40; Admin Dose 6,000 UNITS; Start 02/19/17 at 17:00 Ergocalciferol (Drisdol) 50,000 unit Tu@09 PO ; Start 02/23/17 at 09:00 Famotidine (Pepcid) 20 mg DAILY PO Last administered on 02/22/17 08:28; Admin Dose 20 MG; Start 02/18/17 at 09:00 Febuxostat (Uloric) 40 mg DAILY PO Last administered on 02/22/17 08:28; Admin Dose 40 MG; Start 02/18/17 at 09:00 Acetaminophen (Tylenol Tab) 650 mg Q6H PRN PO PAIN AND OR ELEVATED TEMP; Start 02/17/17 at 23:15 Atorvastatin Calcium (Lipitor) 10 mg DAILY@21 PO Last administered on 21:05; Admin Dose 10 MG; Start 02/17/17 at 23:15 Bisacodyl 10 mg 10 mg DAILY PRN PO CONSTIPATION; Start 02/17/17 at 23:30 Ceftriaxone Sodium (Rocephin) 50 ml @ 100 mls/hr Q24H IVPB Last administered on 02/22/17 11:10; Admin Dose 100 MLS/HR; Start 02/18/17 at 11:30; Stop at 12:30 Clonidine (Catapres) 0.1 mg TID PRN PO SBP ABOVE 160mmHg Last administered on 02/22/17 02:15; Admin Dose 0.1 MG; Start 02/17/17 at 23:30 Carvedilol (Coreg) 6.25 mg BID PO Last administered on 02/22/17 08:27; Admin Dose 6.25 MG; Start 02/18/17 at 21:00 Linagliptin (Tradjenta) 5 mg DAILY PO Last administered on 02/22/17 08:27; Admin Dose 5 MG; Start 02/18/17 at 14:36 Miscellaneous Information 1 ea NOTE XX ; Start 02/18/17 at 15:00 Glucose (Glutose) 15 gm Q15M PRN PO DECREASED GLUCOSE; Start 02/18/17 at 15:00 Glucose (Glutose) 22.5 gm Q15M PRN PO DECREASED GLUCOSE; Start 02/18/17 at 15: 00 Dextrose (D50w Syringe) 25 ml Q15M PRN IV DECREASED GLUCOSE; Start 02/18/17 at 15:00 Dextrose (D50w Syringe) 50 ml Q15M PRN IV DECREASED GLUCOSE; Start 02/18/17 at 15:00 Glucagon (Glucagen) 1 mg Q15M PRN IM DECREASED GLUCOSE; Start 02/18/17 at 15:00 Glucose (Glutose) 15 gm Q15M PRN BUCCAL DECREASED GLUCOSE; Start 02/18/17 at 15 :00 Nifedipine (Procardia Xl) 30 mg BID PO Last administered on 02/22/17 08:28; Admin Dose 30 MG; Start 02/18/17 at 21:00 JAROD NORIEGA NP Feb 22, 2017 13:03
--- NOTE | 2017-02-22 13:21 | PN ---
Date/Time of Note Date/Time of Note DATE: 02/22/17 TIME: 13:18 Assessment/Plan VTE Prophylaxis VTE Prophylaxis Intervention: ambulation Lines/Catheters IV Catheter Type (from [facility]): Saline Lock Urinary Cath still in place: No Assessment/Plan Chief Complaint/Hosp Course 81-year-old male, who was transferred to rehabilitation unit for further rehabilitation following an onset of lower extremity weakness. 1. 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 -Status post treatment with pulse dose steroids followed by IVIG. -Continue PT/OT -Follow-up with outpatient studies EMG/NCV to evaluate for possible demyelinating polyneuropathy such as CIDP 2. 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 Hypertension. With suboptimal control. -Uptitrate Coreg to 12.5. Will monitor blood pressure closely and will adjust as indicated. 4. End-stage renal disease, on hemodialysis. -Follow-up with nephrology recommendations. 5. Status post sepsis bacteremia with Multidrug resistant urinary tract infection. Repeat Urine CS negative. -On abx-last dose today. Follow-up with ID recommendations. 6. Coronary artery disease. -Continue home medications. 7. Dyslipidemia. -Continue statin/fish oil. 8. Anemia of chronic kidney disease. -HH stable. Will monitor. 9. Type 2 diabetes mellitus. Latest A1c 4.9 with good glycemic control. -Stable. No need for insulin in-house. Continue Tradjenta. -Accu-Cheks twice daily and carbohydrate controlled diet. 10. Benign prostatic hypertrophy-Patient with urinary retention now. -Continue Flomax. -Urology consult. 11. Obesity. -Weight reduction advised 12. Nicotine abuse. -Cessation advised. Prophylaxis: Ambulation/SCDs Patient was seen in collaboration with . Problems: Subjective 24 Hr Interval Summary Free Text/Dictation Patient with high post void residual requiring in & out cath. Exam/Review of Systems Vital Signs Vitals Vital Signs Date Time Temp Pulse Resp B/P Pulse Ox O2 Delivery O2 Flow Rate FiO2 02/22/17 07:30 98.6 80 18 164/63 94 02/21/17 14:00 Room Air Intake and Output 02/21/17 02/21/17 02/22/17 15:00 23:00 07:00 Intake Total 50 ml 480 ml 400 ml Output Total 450 ml Balance 50 ml 480 ml -50 ml Exam General: Elderly male, not in any acute distress . HEENT: Normocephalic, Atraumatic, No laceration or hematoma; Eyes: PEERL, Conjunctiva clear, Anicteric sclera Neck: Supple without any lymphadenopathy, nontender, no JVD, no carotid bruits, trachea midline, no thyromegaly Cardiac: S1, S2 auscultated, regular rhythm and rate, no mumurs or gallop Pulmonary: Normal respiratory effort. Chest clear to auscultation bilaterally, no adventitious breath sounds GI: Abdomen normal to inspection. Soft, non tender, non- distended, no masses, no rebound tenderness or guarding. Bowel sounds active on all four quadrants Genitourinary: Deferred Extremities: With severe weakness to bilateral lower extremities. No cyanosis, clubbing, or edema. Pulses [2+] bilaterally. No focal weakness appreciated. Neurologic: Alert to person, place, time, and situation. Affect appropriate, intact sensation. Skin: Clean,dry, and intact. No ecchymosis, no rashes, or lesions Results Result Diagram: 02/22/1762402/22/17624 Results 24 hrs Laboratory Tests Test 02/22/17 06:25 White Blood Count 5.0 # Red Blood Count 3.07 L Hemoglobin 9.9 L Hematocrit 31.2 L Mean Corpuscular Volume 101.6 H Mean Corpuscular Hemoglobin 32.2 Mean Corpuscular Hemoglobin Concent 31.7 L Red Cell Distribution Width 14.8 H Platelet Count 95 L Mean Platelet Volume 11.7 H Neutrophils % 71.6 Lymphocytes % 14.3 L Monocytes % 9.9 Eosinophils % 2.8 Basophils % 0.4 Nucleated Red Blood Cells % 0.0 Neutrophils # 3.6 Lymphocytes # 0.7 L Monocytes # 0.5 Eosinophils # 0.1 Basophils # 0.0 Nucleated Red Blood Cells # 0.0 Prothrombin Time 12.3 Prothrombin Time Ratio 1.0 INR International Normalized Ratio 0.91 Activated Partial Thromboplast Time 30.5 Sodium Level 137 Potassium Level 4.5 Chloride Level 105 Carbon Dioxide Level 22 Anion Gap 15 Blood Urea Nitrogen 75 H Creatinine 8.15 H Glucose Level 96 Calcium Level 8.8 Total Bilirubin 0.1 L Direct Bilirubin 0.00 Indirect Bilirubin 0.1 Aspartate Amino Transf (AST/SGOT) 33 Alanine Aminotransferase (ALT/SGPT) 55 Alkaline Phosphatase 78 Total Protein 7.5 Albumin 3.1 L Globulin 4.40 H Albumin/Globulin Ratio 0.70 Medications Medications Current Medications Polyethylene Glycol (Miralax) 17 gm BID PO Last administered on 02/22/17 08:26 ; Admin Dose 17 GM; Start 02/17/17 at 23:00 Prasugrel (Effient) 10 mg DAILY PO Last administered on 02/22/17 08:27; Admin Dose 10 MG; Start 02/18/17 at 09:00 Ropinirole HCl (Requip) 0.25 mg HS PO Last administered on 02/21/17 21:06; Admin Dose 0.25 MG; Start 02/17/17 at 23:00 Tamsulosin HCl (Flomax) 0.4 mg DAILY@21 PO Last administered on 02/21/17 21:05 ; Admin Dose 0.4 MG; Start 02/17/17 at 23:00 Zolpidem Tartrate (Ambien) 10 mg HS PRN PO INSOMNIA Last administered on 00:37; Admin Dose 10 MG; Start 02/17/17 at 23:15 Multivit/Ca Carb/ B Cmplx/FA/Prenat (Paulina-Chrissy) 1 tab DAILY PO Last administered on 02/22/17 08:28; Admin Dose 1 TAB; Start 02/18/17 at 09:00 Nicotine (Nicoderm 14 Mg/ 24hr) 1 patch DAILY TRANSDERM Last administered on 08:27; Admin Dose 1 PATCH; Start 02/18/17 at 09:00 Hydralazine HCl (Apresoline) 50 mg BID PO Last administered on 02/22/17 08:28 ; Admin Dose 50 MG; Start 02/17/17 at 23:00 Acetaminophen/ Hydrocodone Bitart ([place] (5/325)) 2 tab Q4H PRN PO PAIN Last administered on 02/19/17 08:38; Admin Dose 2 TAB; Start 02/17/17 at 23:30 Acetaminophen/ Hydrocodone Bitart ([place] (5/325)) 1 tab Q4H PRN PO PAIN; Start 02/17/17 at 23:30 Isosorbide Mononitrate (Imdur) 60 mg DAILY PO Last administered on 02/22/17 08 :28; Admin Dose 60 MG; Start 02/18/17 at 09:00 Fish Oil (Fish Oil) 1,000 mg BID PO Last administered on 02/22/17 08:27; Admin Dose 1,000 MG; Start 02/17/17 at 23:15 Docusate Sodium (Colace) 100 mg BID PO Last administered on 02/22/17 08:28; Admin Dose 100 MG; Start 02/17/17 at 23:15 Epoetin Keven (Epogen (Esrd)) 6,000 units MoWeFr@17 SC Last administered on 02/19 17:40; Admin Dose 6,000 UNITS; Start 02/19/17 at 17:00 Ergocalciferol (Drisdol) 50,000 unit Tu@09 PO ; Start 02/23/17 at 09:00 Famotidine (Pepcid) 20 mg DAILY PO Last administered on 02/22/17 08:28; Admin Dose 20 MG; Start 02/18/17 at 09:00 Febuxostat (Uloric) 40 mg DAILY PO Last administered on 02/22/17 08:28; Admin Dose 40 MG; Start 02/18/17 at 09:00 Acetaminophen (Tylenol Tab) 650 mg Q6H PRN PO PAIN AND OR ELEVATED TEMP; Start 02/17/17 at 23:15 Atorvastatin Calcium (Lipitor) 10 mg DAILY@21 PO Last administered on 21:05; Admin Dose 10 MG; Start 02/17/17 at 23:15 Bisacodyl 10 mg 10 mg DAILY PRN PO CONSTIPATION; Start 02/17/17 at 23:30 Ceftriaxone Sodium (Rocephin) 50 ml @ 100 mls/hr Q24H IVPB Last administered on 02/22/17 11:10; Admin Dose 100 MLS/HR; Start 02/18/17 at 11:30; Stop at 23:00 Clonidine (Catapres) 0.1 mg TID PRN PO SBP ABOVE 160mmHg Last administered on 02/22/17 02:15; Admin Dose 0.1 MG; Start 02/17/17 at 23:30 Carvedilol (Coreg) 6.25 mg BID PO Last administered on 02/22/17 08:27; Admin Dose 6.25 MG; Start 02/18/17 at 21:00 Linagliptin (Tradjenta) 5 mg DAILY PO Last administered on 02/22/17 08:27; Admin Dose 5 MG; Start 02/18/17 at 14:36 Miscellaneous Information 1 ea NOTE XX ; Start 02/18/17 at 15:00 Glucose (Glutose) 15 gm Q15M PRN PO DECREASED GLUCOSE; Start 02/18/17 at 15:00 Glucose (Glutose) 22.5 gm Q15M PRN PO DECREASED GLUCOSE; Start 02/18/17 at 15: 00 Dextrose (D50w Syringe) 25 ml Q15M PRN IV DECREASED GLUCOSE; Start 02/18/17 at 15:00 Dextrose (D50w Syringe) 50 ml Q15M PRN IV DECREASED GLUCOSE; Start 02/18/17 at 15:00 Glucagon (Glucagen) 1 mg Q15M PRN IM DECREASED GLUCOSE; Start 02/18/17 at 15:00 Glucose (Glutose) 15 gm Q15M PRN BUCCAL DECREASED GLUCOSE; Start 02/18/17 at 15 :00 Nifedipine (Procardia Xl) 30 mg BID PO Last administered on 02/22/17 08:28; Admin Dose 30 MG; Start 02/18/17 at 21:00 HEATH MAYBERRY NP Feb 22, 2017 13:21
--- NOTE | 2017-02-22 15:45 | PN ---
Date/Time of Note Date/Time of Note DATE: 02/22/17 TIME: 15:45 Assessment/Plan VTE Prophylaxis VTE Prophylaxis Intervention: other Lines/Catheters IV [facility]from [facility] Saline Lock Urinary Cath still in place: No Assessment/Plan Chief Complaint/Hosp Course renal follow up SUBJECTIVE: The patient was seen on hd today. No other events noted. No vitals. No fevers, chills, nausea, vomiting. OBJECTIVE: HEENT: Head is normocephalic. Pupils are reactive to light. NECK: Supple. HEART: Regular rate. LUNGS: Show diminished breath sounds at base. ABDOMEN: Soft, nontender to palpation. No rebound or guarding. EXTREMITIES: Negative for clubbing, cyanosis. No edema. DERMATOLOGIC: No rashes. MUSCULOSKELETAL: No joint effusions. NEUROLOGIC: No change in exam. MEDICATIONS: The patient's medications have been reviewed. ASSESSMENT AND PLAN: 1. End-stage renal disease. continue hd today 2. Anemia. Monitor hemoglobin and hematocrit levels. Continue Epogen. 3. Mineral bone disorder. Continue to monitor calcium and phosphorus levels. 4. Congestive heart failure. Continue medical management. 5. Hypertension. Continue current blood pressure regimen. 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 7. Diabetes. Continue Accu-Cheks and insulin sliding scale. 8. Thrombocytopenia. Continue to monitor. Consider holding heparin. Problems: Exam/Review of Systems Vital Signs Vitals Vital Signs Date Time Temp Pulse Resp B/P Pulse Ox O2 Delivery O2 Flow Rate FiO2 02/22/17 07:30 98.6 80 18 164/63 94 02/21/17 14:00 Room Air Intake and Output 02/21/17 02/21/17 02/22/17 15:00 23:00 07:00 Intake Total 50 ml 480 ml 400 ml Output Total 450 ml Balance 50 ml 480 ml -50 ml Results Result Diagram: 02/22/1725 02/22/17624 Results 24 hrs Laboratory Tests Test 02/22/17 06:25 White Blood Count 5.0 # Red Blood Count 3.07 L Hemoglobin 9.9 L Hematocrit 31.2 L Mean Corpuscular Volume 101.6 H Mean Corpuscular Hemoglobin 32.2 Mean Corpuscular Hemoglobin Concent 31.7 L Red Cell Distribution Width 14.8 H Platelet Count 95 L Mean Platelet Volume 11.7 H Neutrophils % 71.6 Lymphocytes % 14.3 L Monocytes % 9.9 Eosinophils % 2.8 Basophils % 0.4 Nucleated Red Blood Cells % 0.0 Neutrophils # 3.6 Lymphocytes # 0.7 L Monocytes # 0.5 Eosinophils # 0.1 Basophils # 0.0 Nucleated Red Blood Cells # 0.0 Prothrombin Time 12.3 Prothrombin Time Ratio 1.0 INR International Normalized Ratio 0.91 Activated Partial Thromboplast Time 30.5 Sodium Level 137 Potassium Level 4.5 Chloride Level 105 Carbon Dioxide Level 22 Anion Gap 15 Blood Urea Nitrogen 75 H Creatinine 8.15 H Glucose Level 96 Calcium Level 8.8 Total Bilirubin 0.1 L Direct Bilirubin 0.00 Indirect Bilirubin 0.1 Aspartate Amino Transf (AST/SGOT) 33 Alanine Aminotransferase (ALT/SGPT) 55 Alkaline Phosphatase 78 Total Protein 7.5 Albumin 3.1 L Globulin 4.40 H Albumin/Globulin Ratio 0.70 Medications Medications Current Medications Polyethylene Glycol (Miralax) 17 gm BID PO Last administered on 02/22/17 08:26 ; Admin Dose 17 GM; Start 02/17/17 at 23:00 Prasugrel (Effient) 10 mg DAILY PO Last administered on 02/22/17 08:27; Admin Dose 10 MG; Start 02/18/17 at 09:00 Ropinirole HCl (Requip) 0.25 mg HS PO Last administered on 02/21/17 21:06; Admin Dose 0.25 MG; Start 02/17/17 at 23:00 Tamsulosin HCl (Flomax) 0.4 mg DAILY@21 PO Last administered on 02/21/17 21:05 ; Admin Dose 0.4 MG; Start 02/17/17 at 23:00 Zolpidem Tartrate (Ambien) 10 mg HS PRN PO INSOMNIA Last administered on 00:37; Admin Dose 10 MG; Start 02/17/17 at 23:15 Multivit/Ca Carb/ B Cmplx/FA/Prenat (Paulina-Chrissy) 1 tab DAILY PO Last administered on 02/22/17 08:28; Admin Dose 1 TAB; Start 02/18/17 at 09:00 Nicotine (Nicoderm 14 Mg/ 24hr) 1 patch DAILY TRANSDERM Last administered on 08:27; Admin Dose 1 PATCH; Start 02/18/17 at 09:00 Hydralazine HCl (Apresoline) 50 mg BID PO Last administered on 02/22/17 08:28 ; Admin Dose 50 MG; Start 02/17/17 at 23:00 Acetaminophen/ Hydrocodone Bitart ([place] (5/325)) 2 tab Q4H PRN PO PAIN Last administered on 02/19/17 08:38; Admin Dose 2 TAB; Start 02/17/17 at 23:30 Acetaminophen/ Hydrocodone Bitart ([place] (5/325)) 1 tab Q4H PRN PO PAIN; Start 02/17/17 at 23:30 Isosorbide Mononitrate (Imdur) 60 mg DAILY PO Last administered on 02/22/17 08 :28; Admin Dose 60 MG; Start 02/18/17 at 09:00 Fish Oil (Fish Oil) 1,000 mg BID PO Last administered on 02/22/17 08:27; Admin Dose 1,000 MG; Start 02/17/17 at 23:15 Docusate Sodium (Colace) 100 mg BID PO Last administered on 02/22/17 08:28; Admin Dose 100 MG; Start 02/17/17 at 23:15 Epoetin Keven (Epogen (Esrd)) 6,000 units MoWeFr@17 SC Last administered on 02/19 17:40; Admin Dose 6,000 UNITS; Start 02/19/17 at 17:00 Ergocalciferol (Drisdol) 50,000 unit Tu@09 PO ; Start 02/23/17 at 09:00 Famotidine (Pepcid) 20 mg DAILY PO Last administered on 02/22/17 08:28; Admin Dose 20 MG; Start 02/18/17 at 09:00 Febuxostat (Uloric) 40 mg DAILY PO Last administered on 02/22/17 08:28; Admin Dose 40 MG; Start 02/18/17 at 09:00 Acetaminophen (Tylenol Tab) 650 mg Q6H PRN PO PAIN AND OR ELEVATED TEMP; Start 02/17/17 at 23:15 Atorvastatin Calcium (Lipitor) 10 mg DAILY@21 PO Last administered on 21:05; Admin Dose 10 MG; Start 02/17/17 at 23:15 Bisacodyl 10 mg 10 mg DAILY PRN PO CONSTIPATION; Start 02/17/17 at 23:30 Ceftriaxone Sodium (Rocephin) 50 ml @ 100 mls/hr Q24H IVPB Last administered on 02/22/17 11:10; Admin Dose 100 MLS/HR; Start 02/18/17 at 11:30; Stop at 23:00 Clonidine (Catapres) 0.1 mg TID PRN PO SBP ABOVE 160mmHg Last administered on 02/22/17 02:15; Admin Dose 0.1 MG; Start 02/17/17 at 23:30 Linagliptin (Tradjenta) 5 mg DAILY PO Last administered on 02/22/17 08:27; Admin Dose 5 MG; Start 02/18/17 at 14:36 Miscellaneous Information 1 ea NOTE XX ; Start 02/18/17 at 15:00 Glucose (Glutose) 15 gm Q15M PRN PO DECREASED GLUCOSE; Start 02/18/17 at 15:00 Glucose (Glutose) 22.5 gm Q15M PRN PO DECREASED GLUCOSE; Start 02/18/17 at 15: 00 Dextrose (D50w Syringe) 25 ml Q15M PRN IV DECREASED GLUCOSE; Start 02/18/17 at 15:00 Dextrose (D50w Syringe) 50 ml Q15M PRN IV DECREASED GLUCOSE; Start 02/18/17 at 15:00 Glucagon (Glucagen) 1 mg Q15M PRN IM DECREASED GLUCOSE; Start 02/18/17 at 15:00 Glucose (Glutose) 15 gm Q15M PRN BUCCAL DECREASED GLUCOSE; Start 02/18/17 at 15 :00 Nifedipine (Procardia Xl) 30 mg BID PO Last administered on 02/22/17 08:28; Admin Dose 30 MG; Start 02/18/17 at 21:00 Carvedilol (Coreg) 12.5 mg BID PO ; Start 02/22/17 at 21:00 Diagnostic Test (Pha) (Accu-Chek) 1 ea BID XX ; Start 02/22/17 at 21:00 IGOR MORFIN DO Feb 22, 2017 15:45
[2017-02-22] MEDS: EPOETIN 3000 UNITS/1 ML INJ (ESRD) IV SCH (16:22)
--- NOTE | 2017-02-22 20:19 | CONS ---
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 The retention is most likely secondary to neurogenic bladder which is secondary to his meningitis. The patient does have a history of end-stage renal disease on hemodialysis and does not make much urine. Since he has been in the rehab unit he was catheterized multiple times and the volume ranged between 250-500 mL and no record that he has voided on his own he has been on tamsulosin 0.4 mg daily. I am going to start him on a low-dose Urecholine and hopefully that will help with his urination Problems: Consultation Date/Type/Reason Admit Date/Time Feb 17, 2017 at 20:40 Date of Consultation: Feb 22, 2017 Type of Consultation: Urology Reason for Consultation Urinary retention Referring Provider: MAURO SPENCER [facility], [facility] Hx of Present Illness 81-year-old male who is known to have end-stage renal disease and has been on hemodialysis presented to [facility] on January 29 with weakness of the lower extremities. Workup was done including spinal tap and that showed West Nile virus meningitis . The patient has been managed for that and was transferred to the rehab unit for further rehabilitation. The patient is still making urine and prior to his recent sickness he was able to urinate on his own however since his admission he either needed an indwelling Logan catheter or straight catheterization. A urological consultation was requested because of the urinary retention. The was at his bedside and she reports that prior to his recent hospitalization he was able to urinate and go to the bathroom on his own and there was no history of any prostate problem Constitutional: no complaints Eyes: no complaints ENT: no complaints Respiratory: no complaints Cardiovascular: no complaints, No chest pain, No orthopenea Gastrointestinal: no complaints, No nausea, No vomiting Genitourinary: other (Urinary retention,patient has not been able to urinate on his own) Musculoskeletal: other (Weakness of lower extremities) Neurologic: focal-weakness (Of lower extremity) Psychological: no complaints Past Medical History Medical History: congestive heart failure, coronary artery disease, hypertension, renal disease (End-stage), other (Anemia) Past Surgical History Past Surgical Hx: no surgical history (Except for dialysis access) Social History Smoking Status: Former smoker Exam/Review of Systems Vital Signs Vitals Vital Signs Date Time Temp Pulse Resp B/P Pulse Ox O2 Delivery O2 Flow Rate FiO2 02/22/17 17:53 78 14 02/22/17 14:00 97.9 123/56 94 02/21/17 14:00 Room Air Intake and Output 02/21/17 02/21/17 02/22/17 15:00 23:00 07:00 Intake Total 50 ml 480 ml 400 ml Output Total 450 ml Balance 50 ml 480 ml -50 ml Exam Constitutional: alert, oriented Psych: no complaints Head: normocephalic Eyes: nl conjunctiva ENMT: nl external ears & nose Neck: supple Respiratory: normal air movement Cardiovascular: No edema Gastrointestinal: non-tender, soft Genitourinary - Male: nl penis, nl scrotum, other (Rectal exam soft prostate and the prostate is not enlarged), No CVA tenderness Musculoskeletal: muscle weakness (Lower extremity) Extremities: No calf tenderness Results Result Diagram: 02/22/1762402/22/17 0625 Results 24 hrs Laboratory Tests Test 02/22/17 06:25 White Blood Count 5.0 # Red Blood Count 3.07 L Hemoglobin 9.9 L Hematocrit 31.2 L Mean Corpuscular Volume 101.6 H Mean Corpuscular Hemoglobin 32.2 Mean Corpuscular Hemoglobin Concent 31.7 L Red Cell Distribution Width 14.8 H Platelet Count 95 L Mean Platelet Volume 11.7 H Neutrophils % 71.6 Lymphocytes % 14.3 L Monocytes % 9.9 Eosinophils % 2.8 Basophils % 0.4 Nucleated Red Blood Cells % 0.0 Neutrophils # 3.6 Lymphocytes # 0.7 L Monocytes # 0.5 Eosinophils # 0.1 Basophils # 0.0 Nucleated Red Blood Cells # 0.0 Prothrombin Time 12.3 Prothrombin Time Ratio 1.0 INR International Normalized Ratio 0.91 Activated Partial Thromboplast Time 30.5 Sodium Level 137 Potassium Level 4.5 Chloride Level 105 Carbon Dioxide Level 22 Anion Gap 15 Blood Urea Nitrogen 75 H Creatinine 8.15 H Glucose Level 96 Calcium Level 8.8 Total Bilirubin 0.1 L Direct Bilirubin 0.00 Indirect Bilirubin 0.1 Aspartate Amino Transf (AST/SGOT) 33 Alanine Aminotransferase (ALT/SGPT) 55 Alkaline Phosphatase 78 Total Protein 7.5 Albumin 3.1 L Globulin 4.40 H Albumin/Globulin Ratio 0.70 Medications Medications Current Medications Polyethylene Glycol (Miralax) 17 gm BID PO Last administered on 02/22/17 08:26 ; Admin Dose 17 GM; Start 02/17/17 at 23:00 Prasugrel (Effient) 10 mg DAILY PO Last administered on 02/22/17 08:27; Admin Dose 10 MG; Start 02/18/17 at 09:00 Ropinirole HCl (Requip) 0.25 mg HS PO Last administered on 02/21/17 21:06; Admin Dose 0.25 MG; Start 02/17/17 at 23:00 Tamsulosin HCl (Flomax) 0.4 mg DAILY@21 PO Last administered on 02/21/17 21:05 ; Admin Dose 0.4 MG; Start 02/17/17 at 23:00 Zolpidem Tartrate (Ambien) 10 mg HS PRN PO INSOMNIA Last administered on 00:37; Admin Dose 10 MG; Start 02/17/17 at 23:15 Multivit/Ca Carb/ B Cmplx/FA/Prenat (Paulina-Chrissy) 1 tab DAILY PO Last administered on 02/22/17 08:28; Admin Dose 1 TAB; Start 02/18/17 at 09:00 Nicotine (Nicoderm 14 Mg/ 24hr) 1 patch DAILY TRANSDERM Last administered on 08:27; Admin Dose 1 PATCH; Start 02/18/17 at 09:00 Hydralazine HCl (Apresoline) 50 mg BID PO Last administered on 02/22/17 08:28 ; Admin Dose 50 MG; Start 02/17/17 at 23:00 Acetaminophen/ Hydrocodone Bitart ([place] (5/325)) 2 tab Q4H PRN PO PAIN Last administered on 02/19/17 08:38; Admin Dose 2 TAB; Start 02/17/17 at 23:30 Acetaminophen/ Hydrocodone Bitart ([place] (5/325)) 1 tab Q4H PRN PO PAIN; Start 02/17/17 at 23:30 Isosorbide Mononitrate (Imdur) 60 mg DAILY PO Last administered on 02/22/17 08 :28; Admin Dose 60 MG; Start 02/18/17 at 09:00 Fish Oil (Fish Oil) 1,000 mg BID PO Last administered on 02/22/17 08:27; Admin Dose 1,000 MG; Start 02/17/17 at 23:15 Docusate Sodium (Colace) 100 mg BID PO Last administered on 02/22/17 08:28; Admin Dose 100 MG; Start 02/17/17 at 23:15 Ergocalciferol (Drisdol) 50,000 unit Tu@09 PO ; Start 02/23/17 at 09:00 Famotidine (Pepcid) 20 mg DAILY PO Last administered on 02/22/17 08:28; Admin Dose 20 MG; Start 02/18/17 at 09:00 Febuxostat (Uloric) 40 mg DAILY PO Last administered on 02/22/17 08:28; Admin Dose 40 MG; Start 02/18/17 at 09:00 Acetaminophen (Tylenol Tab) 650 mg Q6H PRN PO PAIN AND OR ELEVATED TEMP; Start 02/17/17 at 23:15 Atorvastatin Calcium (Lipitor) 10 mg DAILY@21 PO Last administered on 21:05; Admin Dose 10 MG; Start 02/17/17 at 23:15 Bisacodyl 10 mg 10 mg DAILY PRN PO CONSTIPATION; Start 02/17/17 at 23:30 Ceftriaxone Sodium (Rocephin) 50 ml @ 100 mls/hr Q24H IVPB Last administered on 02/22/17 11:10; Admin Dose 100 MLS/HR; Start 02/18/17 at 11:30; Stop at 23:00 Clonidine (Catapres) 0.1 mg TID PRN PO SBP ABOVE 160mmHg Last administered on 02/22/17 02:15; Admin Dose 0.1 MG; Start 02/17/17 at 23:30 Linagliptin (Tradjenta) 5 mg DAILY PO Last administered on 02/22/17 08:27; Admin Dose 5 MG; Start 02/18/17 at 14:36 Miscellaneous Information 1 ea NOTE XX ; Start 02/18/17 at 15:00 Glucose (Glutose) 15 gm Q15M PRN PO DECREASED GLUCOSE; Start 02/18/17 at 15:00 Glucose (Glutose) 22.5 gm Q15M PRN PO DECREASED GLUCOSE; Start 02/18/17 at 15: 00 Dextrose (D50w Syringe) 25 ml Q15M PRN IV DECREASED GLUCOSE; Start 02/18/17 at 15:00 Dextrose (D50w Syringe) 50 ml Q15M PRN IV DECREASED GLUCOSE; Start 02/18/17 at 15:00 Glucagon (Glucagen) 1 mg Q15M PRN IM DECREASED GLUCOSE; Start 02/18/17 at 15:00 Glucose (Glutose) 15 gm Q15M PRN BUCCAL DECREASED GLUCOSE; Start 02/18/17 at 15 :00 Nifedipine (Procardia Xl) 30 mg BID PO Last administered on 02/22/17 08:28; Admin Dose 30 MG; Start 02/18/17 at 21:00 Carvedilol (Coreg) 12.5 mg BID PO ; Start 02/22/17 at 21:00 Diagnostic Test (Pha) (Accu-Chek) 1 ea BID XX ; Start 02/22/17 at 21:00 Epoetin Keven (Epogen (Esrd)) 6,000 units MoWeFr@17 IV Last administered on 02/22 16:22; Admin Dose 6,000 UNITS; Start 02/22/17 at 17:00 VANE PAYTON MD Feb 22, 2017 20:18
[2017-02-22] MEDS: ROPINIROLE 0.25 MG TAB PO SCH (20:34)
[2017-02-22] MEDS: ATORVASTATIN 10 MG TAB PO SCH (20:35)
[2017-02-22] MEDS: ACCU-CHEK XX SCH (20:35)
[2017-02-22] MEDS: TAMSULOSIN (SR) 0.4 MG CAP PO SCH (20:35)
[2017-02-22] MEDS: BETHANECHOL 10 MG TAB PO SCH (20:41)
[2017-02-23 02:00] VITALS: BP 141/76; RESP 18
[2017-02-23 07:00] VITALS: BP_SYST 115; BP_SYST 119; BP_DIAS 51; BP_DIAS 58; RESP 18
[2017-02-23] MEDS: ACCU-CHEK XX SCH ×2 (07:56→21:33)
[2017-02-23] MEDS: FEBUXOSTAT 40 MG TABLET PO SCH (09:27)
[2017-02-23] MEDS: NIFEdipine (XL) 30 MG TAB PO SCH ×2 (09:28→21:24)
[2017-02-23] MEDS: ERGOCALCIFEROL 50,000 UNIT CAP PO SCH (09:29)
[2017-02-23] MEDS: SEVELAMER 800 MG TAB PO SCH ×3 (09:29→17:21)
--- NOTE | 2017-02-23 09:29 | CONS ---
Date/Time of Note Date/Time of Note DATE: 02/23/17 TIME: 09:28 Consult Date/Type/Reason Admit Date/Time Feb 17, 2017 at 20:40 Type of Consultation: Urology Ordering Provider: MAURO SPENCER MD, [facility] Subjective Overall improving. Progress reviewed with patient's daughter in law Objective pulm-cta max assist transfer Vital Signs Date Time Temp Pulse Resp B/P Pulse Ox O2 Delivery O2 Flow Rate FiO2 02/23/17 07:00 98.3 80 18 119/58 94 02/21/17 14:00 Room Air Intake and Output 02/22/17 02/22/17 02/23/17 15:00 23:00 07:00 Intake Total 600 ml 820 ml Output Total 1500 ml Balance 600 ml -680 ml Results/Medications Result Diagram: 02/22/1762402/22/17 0625 Results 24 hrs Laboratory Tests Test 02/22/17 20:32 02/23/17 07:56 Bedside Glucose 110 107 Medications Current Medications Polyethylene Glycol (Miralax) 17 gm BID PO Last administered on 02/22/17 20:33 ; Admin Dose 17 GM; Start 02/17/17 at 23:00 Prasugrel (Effient) 10 mg DAILY PO Last administered on 02/22/17 08:27; Admin Dose 10 MG; Start 02/18/17 at 09:00 Ropinirole HCl (Requip) 0.25 mg HS PO Last administered on 02/22/17 20:34; Admin Dose 0.25 MG; Start 02/17/17 at 23:00 Tamsulosin HCl (Flomax) 0.4 mg DAILY@21 PO Last administered on 02/22/17 20:35 ; Admin Dose 0.4 MG; Start 02/17/17 at 23:00 Zolpidem Tartrate (Ambien) 10 mg HS PRN PO INSOMNIA Last administered on 20:44; Admin Dose 10 MG; Start 02/17/17 at 23:15 Multivit/Ca Carb/ B Cmplx/FA/Prenat (Paulina-Chrissy) 1 tab DAILY PO Last administered on 02/22/17 08:28; Admin Dose 1 TAB; Start 02/18/17 at 09:00 Nicotine (Nicoderm 14 Mg/ 24hr) 1 patch DAILY TRANSDERM Last administered on 08:27; Admin Dose 1 PATCH; Start 02/18/17 at 09:00 Hydralazine HCl (Apresoline) 50 mg BID PO Last administered on 02/22/17 20:35 ; Admin Dose 50 MG; Start 02/17/17 at 23:00 Acetaminophen/ Hydrocodone Bitart ([place] (5/325)) 2 tab Q4H PRN PO PAIN Last administered on 02/19/17 08:38; Admin Dose 2 TAB; Start 02/17/17 at 23:30 Acetaminophen/ Hydrocodone Bitart ([place] (5/325)) 1 tab Q4H PRN PO PAIN; Start 02/17/17 at 23:30 Isosorbide Mononitrate (Imdur) 60 mg DAILY PO Last administered on 02/22/17 08 :28; Admin Dose 60 MG; Start 02/18/17 at 09:00 Fish Oil (Fish Oil) 1,000 mg BID PO Last administered on 02/22/17 20:34; Admin Dose 1,000 MG; Start 02/17/17 at 23:15 Docusate Sodium (Colace) 100 mg BID PO Last administered on 02/22/17 20:34; Admin Dose 100 MG; Start 02/17/17 at 23:15 Ergocalciferol (Drisdol) 50,000 unit Tu@09 PO ; Start 02/23/17 at 09:00 Famotidine (Pepcid) 20 mg DAILY PO Last administered on 02/22/17 08:28; Admin Dose 20 MG; Start 02/18/17 at 09:00 Febuxostat (Uloric) 40 mg DAILY PO Last administered on 02/22/17 08:28; Admin Dose 40 MG; Start 02/18/17 at 09:00 Acetaminophen (Tylenol Tab) 650 mg Q6H PRN PO PAIN AND OR ELEVATED TEMP; Start 02/17/17 at 23:15 Atorvastatin Calcium (Lipitor) 10 mg DAILY@21 PO Last administered on 20:35; Admin Dose 10 MG; Start 02/17/17 at 23:15 Bisacodyl (Dulcolax) 10 mg DAILY PRN PO CONSTIPATION; Start 02/17/17 at 23:30 Clonidine (Catapres) 0.1 mg TID PRN PO SBP ABOVE 160mmHg Last administered on 02/22/17 02:15; Admin Dose 0.1 MG; Start 02/17/17 at 23:30 Linagliptin (Tradjenta) 5 mg DAILY PO Last administered on 02/22/17 08:27; Admin Dose 5 MG; Start 02/18/17 at 14:36 Miscellaneous Information 1 ea NOTE XX ; Start 02/18/17 at 15:00 Glucose (Glutose) 15 gm Q15M PRN PO DECREASED GLUCOSE; Start 02/18/17 at 15:00 Glucose (Glutose) 22.5 gm Q15M PRN PO DECREASED GLUCOSE; Start 02/18/17 at 15: 00 Dextrose (D50w Syringe) 25 ml Q15M PRN IV DECREASED GLUCOSE; Start 02/18/17 at 15:00 Dextrose (D50w Syringe) 50 ml Q15M PRN IV DECREASED GLUCOSE; Start 02/18/17 at 15:00 Glucagon (Glucagen) 1 mg Q15M PRN IM DECREASED GLUCOSE; Start 02/18/17 at 15:00 Glucose (Glutose) 15 gm Q15M PRN BUCCAL DECREASED GLUCOSE; Start 02/18/17 at 15 :00 Nifedipine (Procardia Xl) 30 mg BID PO Last administered on 02/22/17 20:34; Admin Dose 30 MG; Start 02/18/17 at 21:00 Carvedilol (Coreg) 12.5 mg BID PO Last administered on 02/22/17 20:34; Admin Dose 12.5 MG; Start 02/22/17 at 21:00 Diagnostic Test (Pha) (Accu-Chek) 1 ea BID XX Last administered on 02/22/17 20 :35; Admin Dose 1 EA; Start 02/22/17 at 21:00 Epoetin Keven (Epogen (Esrd)) 6,000 units MoWeFr@17 IV Last administered on 02/22 16:22; Admin Dose 6,000 UNITS; Start 02/22/17 at 17:00 Bethanechol Chloride (Urecholine) 10 mg TID PO Last administered on 02/22/17 20:41; Admin Dose 10 MG; Start 02/22/17 at 21:00 Assessment/Plan Additional Assessment/Plan Rehab-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 End-stage renal disease on hemodialysis. Urinary tract infection. Congestive heart failure. Hypertension. JESSICA ADAMS MD Feb 23, 2017 09:29
[2017-02-23] MEDS: POLYETHYLENE GLYCOL 17 GM PACKET PO SCH ×2 (09:30→21:00)
[2017-02-23] MEDS: ISOSORBIDE MONONITRATE(SR)60 MG TAB PO SCH (09:30)
[2017-02-23] MEDS: FISH OIL 1,000 MG CAP PO SCH ×2 (09:30→21:22)
[2017-02-23] MEDS: MULTIVIT/CA CARB/B CMPLX/FA TAB PO SCH (09:30)
[2017-02-23] MEDS: BETHANECHOL 10 MG TAB PO SCH ×3 (09:31→21:24)
[2017-02-23] MEDS: DOCUSATE SODIUM 100 MG CAP PO SCH ×2 (09:31→21:00)
[2017-02-23] MEDS: LINAGLIPTIN 5 MG TABLET PO SCH (09:31)
[2017-02-23] MEDS: BALSAM PERU/CASTOR OIL 60 GM TUBE TOP SCH ×2 (09:32→21:25)
[2017-02-23] MEDS: FAMOTIDINE 20 MG TAB PO SCH (09:33)
[2017-02-23] MEDS: NICOTINE (14 MG/24 HR) PATCH TRANSDERM SCH (09:33)
[2017-02-23] MEDS: PRASUGREL HYDROCHLORIDE 10 MG TABLET PO SCH (09:34)
--- NOTE | 2017-02-23 11:43 | PN ---
Date/Time of Note Date/Time of Note DATE: 02/23/17 TIME: 11:39 Assessment/Plan VTE Prophylaxis VTE Prophylaxis Intervention: ambulation Lines/Catheters IV C[facility] Type (from [facility] Urinary Cath still in place: No Assessment/Plan Chief Complaint/Hosp Course 81-year-old male, who was transferred to rehabilitation unit for further rehabilitation following an onset of lower extremity weakness. 1. 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 -Status post treatment with pulse dose steroids followed by IVIG. -Continue PT/OT -Follow-up with outpatient studies EMG/NCV to evaluate for possible demyelinating polyneuropathy such as CIDP 2. 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 Hypertension. Now with good control -Continue current antihypertensives. Will monitor blood pressure closely and will adjust as indicated. 4. End-stage renal disease, on hemodialysis. -Follow-up with nephrology recommendations. 5. Status post sepsis bacteremia with Multidrug resistant urinary tract infection. Repeat Urine CS negative. -On abx-last dose today. Follow-up with ID recommendations. 6. Coronary artery disease. -Continue home medications. 7. Dyslipidemia. -Continue statin/fish oil. 8. Anemia of chronic kidney disease. -HH stable. Will monitor. 9. Type 2 diabetes mellitus. Latest A1c 4.9 with good glycemic control. -Stable. No need for insulin in-house. Continue Tradjenta. -Accu-Cheks twice daily and carbohydrate controlled diet. 10. Benign prostatic hypertrophy -Continue Flomax. 11. Urinary retention, likely secondary to neurogenic bladder. -urology evaluation appreciated. Started on Urecholine. 12. Obesity. -Weight reduction advised 13. Nicotine abuse. -Cessation advised. Prophylaxis: Ambulation/SCDs Patient was seen in collaboration with . Problems: Subjective 24 Hr Interval Summary Free Text/Dictation Patient with no acute overnight episodes. Patient still requires in and out catheterization. Exam/Review of Systems Vital Signs Vitals Vital Signs Date Time Temp Pulse Resp B/P Pulse Ox O2 Delivery O2 Flow Rate FiO2 02/23/17 07:00 98.3 80 18 119/58 94 02/21/17 14:00 Room Air Intake and Output 02/22/17 02/22/17 02/23/17 15:00 23:00 07:00 Intake Total 600 ml 820 ml Output Total 1500 ml Balance 600 ml -680 ml Exam General: Elderly male, not in any acute distress . HEENT: Normocephalic, Atraumatic, No laceration or hematoma; Eyes: PEERL, Conjunctiva clear, Anicteric sclera Neck: Supple without any lymphadenopathy, nontender, no JVD, no carotid bruits, trachea midline, no thyromegaly Cardiac: S1, S2 auscultated, regular rhythm and rate, no mumurs or gallop Pulmonary: Normal respiratory effort. Chest clear to auscultation bilaterally, no adventitious breath sounds GI: Abdomen normal to inspection. Soft, non tender, non- distended, no masses, no rebound tenderness or guarding. Bowel sounds active on all four quadrants Genitourinary: Deferred Extremities: With severe weakness to bilateral lower extremities. No cyanosis, clubbing, or edema. Pulses [2+] bilaterally. No focal weakness appreciated. Neurologic: Alert to person, place, time, and situation. Affect appropriate, intact sensation. Skin: Clean,dry, and intact. No ecchymosis, no rashes, or lesions Results Result Diagram: 02/22/1762402/22/17624 Results 24 hrs Laboratory Tests Test 02/22/17 20:32 02/23/17 07:56 Bedside Glucose 110 107 Medications Medications Current Medications Polyethylene Glycol (Miralax) 17 gm BID PO Last administered on 02/23/17 09: 30; Admin Dose 17 GM; Start 02/17/17 at 23:00 Prasugrel (Effient) 10 mg DAILY PO Last administered on 02/23/17 09:34; Admin Dose 10 MG; Start 02/18/17 at 09:00 Ropinirole HCl (Requip) 0.25 mg HS PO Last administered on 02/22/17 20:34; Admin Dose 0.25 MG; Start 02/17/17 at 23:00 Tamsulosin HCl (Flomax) 0.4 mg DAILY@21 PO Last administered on 02/22/17 20:35 ; Admin Dose 0.4 MG; Start 02/17/17 at 23:00 Zolpidem Tartrate (Ambien) 10 mg HS PRN PO INSOMNIA Last administered on 20:44; Admin Dose 10 MG; Start 02/17/17 at 23:15 Multivit/Ca Carb/ B Cmplx/FA/Prenat (Paulina-Chrissy) 1 tab DAILY PO Last administered on 02/23/17 09:30; Admin Dose 1 TAB; Start 02/18/17 at 09:00 Nicotine (Nicoderm 14 Mg/ 24hr) 1 patch DAILY TRANSDERM Last administered on 09:33; Admin Dose 1 PATCH; Start 02/18/17 at 09:00 Hydralazine HCl (Apresoline) 50 mg BID PO Last administered on 02/23/17 09:30 ; Admin Dose 50 MG; Start 02/17/17 at 23:00 Acetaminophen/ Hydrocodone Bitart ([place] (5/325)) 2 tab Q4H PRN PO PAIN Last administered on 02/19/17 08:38; Admin Dose 2 TAB; Start 02/17/17 at 23:30 Acetaminophen/ Hydrocodone Bitart ([place] (5/325)) 1 tab Q4H PRN PO PAIN; Start 02/17/17 at 23:30 Isosorbide Mononitrate (Imdur) 60 mg DAILY PO Last administered on 02/23/17 09:30; Admin Dose 60 MG; Start 02/18/17 at 09:00 Fish Oil (Fish Oil) 1,000 mg BID PO Last administered on 02/23/17 09:30; Admin Dose 1,000 MG; Start 02/17/17 at 23:15 Docusate Sodium (Colace) 100 mg BID PO Last administered on 02/23/17 09:31; Admin Dose 100 MG; Start 02/17/17 at 23:15 Ergocalciferol (Drisdol) 50,000 unit Tu@09 PO Last administered on 02/23/17 09:29; Admin Dose 50,000 UNIT; Start 02/23/17 at 09:00 Famotidine (Pepcid) 20 mg DAILY PO Last administered on 02/23/17 09:33; Admin Dose 20 MG; Start 02/18/17 at 09:00 Febuxostat (Uloric) 40 mg DAILY PO Last administered on 02/23/17 09:27; Admin Dose 40 MG; Start 02/18/17 at 09:00 Acetaminophen (Tylenol Tab) 650 mg Q6H PRN PO PAIN AND OR ELEVATED TEMP; Start 02/17/17 at 23:15 Atorvastatin Calcium (Lipitor) 10 mg DAILY@21 PO Last administered on 20:35; Admin Dose 10 MG; Start 02/17/17 at 23:15 Bisacodyl (Dulcolax) 10 mg DAILY PRN PO CONSTIPATION; Start 02/17/17 at 23:30 Clonidine (Catapres) 0.1 mg TID PRN PO SBP ABOVE 160mmHg Last administered on 02/22/17 02:15; Admin Dose 0.1 MG; Start 02/17/17 at 23:30 Linagliptin (Tradjenta) 5 mg DAILY PO Last administered on 02/23/17 09:31; Admin Dose 5 MG; Start 02/18/17 at 14:36 Miscellaneous Information 1 ea NOTE XX ; Start 02/18/17 at 15:00 Glucose (Glutose) 15 gm Q15M PRN PO DECREASED GLUCOSE; Start 02/18/17 at 15:00 Glucose (Glutose) 22.5 gm Q15M PRN PO DECREASED GLUCOSE; Start 02/18/17 at 15: 00 Dextrose (D50w Syringe) 25 ml Q15M PRN IV DECREASED GLUCOSE; Start 02/18/17 at 15:00 Dextrose (D50w Syringe) 50 ml Q15M PRN IV DECREASED GLUCOSE; Start 02/18/17 at 15:00 Glucagon (Glucagen) 1 mg Q15M PRN IM DECREASED GLUCOSE; Start 02/18/17 at 15:00 Glucose (Glutose) 15 gm Q15M PRN BUCCAL DECREASED GLUCOSE; Start 02/18/17 at 15 :00 Nifedipine (Procardia Xl) 30 mg BID PO Last administered on 02/23/17 09:28; Admin Dose 30 MG; Start 02/18/17 at 21:00 Carvedilol (Coreg) 12.5 mg BID PO Last administered on 02/23/17 09:29; Admin Dose 12.5 MG; Start 02/22/17 at 21:00 Diagnostic Test (Pha) (Accu-Chek) 1 ea BID XX Last administered on 02/23/17 07:56; Admin Dose 1 EA; Start 02/22/17 at 21:00 Epoetin Keven (Epogen (Esrd)) 6,000 units MoWeFr@17 IV Last administered on 02/22 16:22; Admin Dose 6,000 UNITS; Start 02/22/17 at 17:00 Bethanechol Chloride (Urecholine) 10 mg TID PO Last administered on 02/23/17 09:31; Admin Dose 10 MG; Start 02/22/17 at 21:00 HEATH MAYBERRY NP Feb 23, 2017 11:43
--- NOTE | 2017-02-23 16:07 | CONS ---
Date/Time of Note Date/Time of Note DATE: 02/23/17 TIME: 16:05 Consult Date/Type/Reason Admit Date/Time Feb 17, 2017 at 20:40 Initial Consult Date 02/22/17 Type of Consultation: neph Ordering Provider: MAURO SPENCER MD, [facility] Subjective SUBJECTIVE: The patient tolerated hd yesterday. No other events noted. No vitals. No fevers, chills, nausea, vomiting. OBJECTIVE: HEENT: Head is normocephalic. Pupils are reactive to light. NECK: Supple. HEART: Regular rate. LUNGS: Show diminished breath sounds at base. ABDOMEN: Soft, nontender to palpation. No rebound or guarding. EXTREMITIES: Negative for clubbing, cyanosis. No edema. DERMATOLOGIC: No rashes. MUSCULOSKELETAL: No joint effusions. NEUROLOGIC: No change in exam. MEDICATIONS: The patient's medications have been reviewed. Objective Vital Signs Date Time Temp Pulse Resp B/P Pulse Ox O2 Delivery O2 Flow Rate FiO2 02/23/17 07:00 98.3 80 18 119/58 94 02/21/17 14:00 Room Air Intake and Output 02/22/17 02/22/17 02/23/17 15:00 23:00 07:00 Intake Total 600 ml 820 ml Output Total 1500 ml Balance 600 ml -680 ml Results/Medications Result Diagram: 02/22/17 0625 02/22/17 0625 Results 24 hrs Laboratory Tests Test 02/22/17 20:32 02/23/17 07:56 02/23/17 12:20 Bedside Glucose 110 107 112 Medications Current Medications Polyethylene Glycol (Miralax) 17 gm BID PO Last administered on 02/23/17 09: 30; Admin Dose 17 GM; Start 02/17/17 at 23:00 Prasugrel (Effient) 10 mg DAILY PO Last administered on 02/23/17 09:34; Admin Dose 10 MG; Start 02/18/17 at 09:00 Ropinirole HCl (Requip) 0.25 mg HS PO Last administered on 02/22/17 20:34; Admin Dose 0.25 MG; Start 02/17/17 at 23:00 Tamsulosin HCl (Flomax) 0.4 mg DAILY@21 PO Last administered on 02/22/17 20:35 ; Admin Dose 0.4 MG; Start 02/17/17 at 23:00 Zolpidem Tartrate (Ambien) 10 mg HS PRN PO INSOMNIA Last administered on 20:44; Admin Dose 10 MG; Start 02/17/17 at 23:15 Multivit/Ca Carb/ B Cmplx/FA/Prenat (Paulina-Chrissy) 1 tab DAILY PO Last administered on 02/23/17 09:30; Admin Dose 1 TAB; Start 02/18/17 at 09:00 Nicotine (Nicoderm 14 Mg/ 24hr) 1 patch DAILY TRANSDERM Last administered on 09:33; Admin Dose 1 PATCH; Start 02/18/17 at 09:00 Hydralazine HCl (Apresoline) 50 mg BID PO Last administered on 02/23/17 09:30 ; Admin Dose 50 MG; Start 02/17/17 at 23:00 Acetaminophen/ Hydrocodone Bitart ([place] (5/325)) 2 tab Q4H PRN PO PAIN Last administered on 02/19/17 08:38; Admin Dose 2 TAB; Start 02/17/17 at 23:30 Acetaminophen/ Hydrocodone Bitart ([place] (5/325)) 1 tab Q4H PRN PO PAIN; Start 02/17/17 at 23:30 Isosorbide Mononitrate (Imdur) 60 mg DAILY PO Last administered on 02/23/17 09:30; Admin Dose 60 MG; Start 02/18/17 at 09:00 Fish Oil (Fish Oil) 1,000 mg BID PO Last administered on 02/23/17 09:30; Admin Dose 1,000 MG; Start 02/17/17 at 23:15 Docusate Sodium (Colace) 100 mg BID PO Last administered on 02/23/17 09:31; Admin Dose 100 MG; Start 02/17/17 at 23:15 Ergocalciferol (Drisdol) 50,000 unit @09 PO Last administered on 02/23/17 09:29; Admin Dose 50,000 UNIT; Start 02/23/17 at 09:00 Famotidine (Pepcid) 20 mg DAILY PO Last administered on 02/23/17 09:33; Admin Dose 20 MG; Start 02/18/17 at 09:00 Febuxostat (Uloric) 40 mg DAILY PO Last administered on 02/23/17 09:27; Admin Dose 40 MG; Start 02/18/17 at 09:00 Acetaminophen (Tylenol Tab) 650 mg Q6H PRN PO PAIN AND OR ELEVATED TEMP; Start 02/17/17 at 23:15 Atorvastatin Calcium (Lipitor) 10 mg DAILY@21 PO Last administered on 20:35; Admin Dose 10 MG; Start 02/17/17 at 23:15 Bisacodyl (Dulcolax) 10 mg DAILY PRN PO CONSTIPATION; Start 02/17/17 at 23:30 Clonidine (Catapres) 0.1 mg TID PRN PO SBP ABOVE 160mmHg Last administered on 02/22/17 02:15; Admin Dose 0.1 MG; Start 02/17/17 at 23:30 Linagliptin (Tradjenta) 5 mg DAILY PO Last administered on 02/23/17 09:31; Admin Dose 5 MG; Start 02/18/17 at 14:36 Miscellaneous Information 1 ea NOTE XX ; Start 02/18/17 at 15:00 Glucose (Glutose) 15 gm Q15M PRN PO DECREASED GLUCOSE; Start 02/18/17 at 15:00 Glucose (Glutose) 22.5 gm Q15M PRN PO DECREASED GLUCOSE; Start 02/18/17 at 15: 00 Dextrose (D50w Syringe) 25 ml Q15M PRN IV DECREASED GLUCOSE; Start 02/18/17 at 15:00 Dextrose (D50w Syringe) 50 ml Q15M PRN IV DECREASED GLUCOSE; Start 02/18/17 at 15:00 Glucagon (Glucagen) 1 mg Q15M PRN IM DECREASED GLUCOSE; Start 02/18/17 at 15:00 Glucose (Glutose) 15 gm Q15M PRN BUCCAL DECREASED GLUCOSE; Start 02/18/17 at 15 :00 Nifedipine (Procardia Xl) 30 mg BID PO Last administered on 02/23/17 09:28; Admin Dose 30 MG; Start 02/18/17 at 21:00 Carvedilol (Coreg) 12.5 mg BID PO Last administered on 02/23/17 09:29; Admin Dose 12.5 MG; Start 02/22/17 at 21:00 Diagnostic Test (Pha) (Accu-Chek) 1 ea BID XX Last administered on 02/23/17 07:56; Admin Dose 1 EA; Start 02/22/17 at 21:00 Epoetin Keven (Epogen (Esrd)) 6,000 units MoWeFr@17 IV Last administered on 02/22 16:22; Admin Dose 6,000 UNITS; Start 02/22/17 at 17:00 Bethanechol Chloride (Urecholine) 10 mg TID PO Last administered on 02/23/17 12:45; Admin Dose 10 MG; Start 02/22/17 at 21:00 Assessment/Plan Chief Complaint/Hosp Course 1. End-stage renal disease. continue hd on qod schedule. assess daily for needs. all meds dosed ok. 2. Anemia. Monitor hemoglobin and hematocrit levels. Continue Epogen. 3. Mineral bone disorder. Continue to monitor calcium and phosphorus levels. 4. Congestive heart failure. Continue medical management. 5. Hypertension. Continue current blood pressure regimen. 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 7. Diabetes. Continue Accu-Cheks and insulin sliding scale. 8. Thrombocytopenia. Continue to monitor. Consider holding heparin. Problems: MARRY MADRIGAL MD Feb 23, 2017 16:07
--- NOTE | 2017-02-23 19:17 | PN ---
Date/Time of Note Date/Time of Note DATE: 02/23/17 TIME: 19:13 Assessment/Plan VTE Prophylaxis VTE Prophylaxis Intervention: ambulation Lines/Catheters IV [facility] Type (from [facility] Urinary Cath still in place: No Assessment/Plan Chief Complaint/Hosp Course 81-year-old male with a history of West Nile virus meningitis and urinary retention. Patient was started on 10 mg of Urecholine 3 times a day. He has been voiding at the postvoid residual has been small about 18 mL. Therefore there is no need to do a straight cath on him Problems: Subjective 24 Hr Interval Summary Constitutional: no complaints Eyes: no complaints ENT: no complaints Respiratory: no complaints Cardiovascular: no complaints Gastrointestinal: no complaints Genitourinary: other (He does not use a urinal and voids in bed), No bleeding, No hematuria Skin: no complaints Exam/Review of Systems Vital Signs Vitals Vital Signs Date Time Temp Pulse Resp B/P Pulse Ox O2 Delivery O2 Flow Rate FiO2 02/23/17 07:00 98.3 80 18 119/58 94 02/21/17 14:00 Room Air Intake and Output 02/22/17 02/22/17 02/23/17 15:00 23:00 07:00 Intake Total 600 ml 820 ml Output Total 1500 ml Balance 600 ml -680 ml Exam Constitutional: alert Psych: no complaints Head: normocephalic Eyes: nl conjunctiva ENMT: nl external ears & nose Neck: supple Respiratory: normal air movement Cardiovascular: No edema Gastrointestinal: soft Genitourinary - Male: nl penis, nl scrotum, other (Postvoid residual was about 18 mL), No CVA tenderness Extremities: No calf tenderness, No edema Results Result Diagram: 02/22/1762402/22/17624 Results 24 hrs Laboratory Tests Test 02/22/17 20:32 02/23/17 07:56 02/23/17 12:20 02/23/17 17:40 Bedside Glucose 110 107 112 107 Medications Medications Current Medications Polyethylene Glycol (Miralax) 17 gm BID PO Last administered on 02/23/17 09: 30; Admin Dose 17 GM; Start 02/17/17 at 23:00 Prasugrel (Effient) 10 mg DAILY PO Last administered on 02/23/17 09:34; Admin Dose 10 MG; Start 02/18/17 at 09:00 Ropinirole HCl (Requip) 0.25 mg HS PO Last administered on 02/22/17 20:34; Admin Dose 0.25 MG; Start 02/17/17 at 23:00 Tamsulosin HCl (Flomax) 0.4 mg DAILY@21 PO Last administered on 02/22/17 20:35 ; Admin Dose 0.4 MG; Start 02/17/17 at 23:00 Zolpidem Tartrate (Ambien) 10 mg HS PRN PO INSOMNIA Last administered on 20:44; Admin Dose 10 MG; Start 02/17/17 at 23:15 Multivit/Ca Carb/ B Cmplx/FA/Prenat (Paulina-Chrissy) 1 tab DAILY PO Last administered on 02/23/17 09:30; Admin Dose 1 TAB; Start 02/18/17 at 09:00 Nicotine (Nicoderm 14 Mg/ 24hr) 1 patch DAILY TRANSDERM Last administered on 09:33; Admin Dose 1 PATCH; Start 02/18/17 at 09:00 Hydralazine HCl (Apresoline) 50 mg BID PO Last administered on 02/23/17 09:30 ; Admin Dose 50 MG; Start 02/17/17 at 23:00 Acetaminophen/ Hydrocodone Bitart ([place] (5/325)) 2 tab Q4H PRN PO PAIN Last administered on 02/19/17 08:38; Admin Dose 2 TAB; Start 02/17/17 at 23:30 Acetaminophen/ Hydrocodone Bitart ([place] (5/325)) 1 tab Q4H PRN PO PAIN; Start 02/17/17 at 23:30 Isosorbide Mononitrate (Imdur) 60 mg DAILY PO Last administered on 02/23/17 09:30; Admin Dose 60 MG; Start 02/18/17 at 09:00 Fish Oil (Fish Oil) 1,000 mg BID PO Last administered on 02/23/17 09:30; Admin Dose 1,000 MG; Start 02/17/17 at 23:15 Docusate Sodium (Colace) 100 mg BID PO Last administered on 02/23/17 09:31; Admin Dose 100 MG; Start 02/17/17 at 23:15 Ergocalciferol (Drisdol) 50,000 unit Tu@09 PO Last administered on 02/23/17 09:29; Admin Dose 50,000 UNIT; Start 02/23/17 at 09:00 Famotidine (Pepcid) 20 mg DAILY PO Last administered on 02/23/17 09:33; Admin Dose 20 MG; Start 02/18/17 at 09:00 Febuxostat (Uloric) 40 mg DAILY PO Last administered on 02/23/17 09:27; Admin Dose 40 MG; Start 02/18/17 at 09:00 Acetaminophen (Tylenol Tab) 650 mg Q6H PRN PO PAIN AND OR ELEVATED TEMP; Start 02/17/17 at 23:15 Atorvastatin Calcium (Lipitor) 10 mg DAILY@21 PO Last administered on 20:35; Admin Dose 10 MG; Start 02/17/17 at 23:15 Bisacodyl (Dulcolax) 10 mg DAILY PRN PO CONSTIPATION; Start 02/17/17 at 23:30 Clonidine (Catapres) 0.1 mg TID PRN PO SBP ABOVE 160mmHg Last administered on 02/22/17 02:15; Admin Dose 0.1 MG; Start 02/17/17 at 23:30 Linagliptin (Tradjenta) 5 mg DAILY PO Last administered on 02/23/17 09:31; Admin Dose 5 MG; Start 02/18/17 at 14:36 Miscellaneous Information 1 ea NOTE XX ; Start 02/18/17 at 15:00 Glucose (Glutose) 15 gm Q15M PRN PO DECREASED GLUCOSE; Start 02/18/17 at 15:00 Glucose (Glutose) 22.5 gm Q15M PRN PO DECREASED GLUCOSE; Start 02/18/17 at 15: 00 Dextrose (D50w Syringe) 25 ml Q15M PRN IV DECREASED GLUCOSE; Start 02/18/17 at 15:00 Dextrose (D50w Syringe) 50 ml Q15M PRN IV DECREASED GLUCOSE; Start 02/18/17 at 15:00 Glucagon (Glucagen) 1 mg Q15M PRN IM DECREASED GLUCOSE; Start 02/18/17 at 15:00 Glucose (Glutose) 15 gm Q15M PRN BUCCAL DECREASED GLUCOSE; Start 02/18/17 at 15 :00 Nifedipine (Procardia Xl) 30 mg BID PO Last administered on 02/23/17 09:28; Admin Dose 30 MG; Start 02/18/17 at 21:00 Carvedilol (Coreg) 12.5 mg BID PO Last administered on 02/23/17 09:29; Admin Dose 12.5 MG; Start 02/22/17 at 21:00 Diagnostic Test (Pha) (Accu-Chek) 1 ea BID XX Last administered on 02/23/17 07:56; Admin Dose 1 EA; Start 02/22/17 at 21:00 Epoetin Keven (Epogen (Esrd)) 6,000 units MoWeFr@17 IV Last administered on 02/22 16:22; Admin Dose 6,000 UNITS; Start 02/22/17 at 17:00 Bethanechol Chloride (Urecholine) 10 mg TID PO Last administered on 02/23/17 12:45; Admin Dose 10 MG; Start 02/22/17 at 21:00 VANE PAYTON MD Feb 23, 2017 19:17
[2017-02-23 20:00] VITALS: BP 138/63; RESP 18
[2017-02-23] MEDS: ROPINIROLE 0.25 MG TAB PO SCH (21:22)
[2017-02-23] MEDS: ATORVASTATIN 10 MG TAB PO SCH (21:22)
[2017-02-23] MEDS: TAMSULOSIN (SR) 0.4 MG CAP PO SCH (21:23)
[2017-02-23] MEDS: ZOLPIDEM 5 MG TAB PO PRN (22:05)
[2017-02-24] VITALS (10 sets, daily range): BP systolic 133–162; BP diastolic 58–83; PULSE 70–78; RESP 16–18
[2017-02-24] MEDS: POLYETHYLENE GLYCOL 17 GM PACKET PO SCH ×2 (08:12→22:00)
[2017-02-24] MEDS: ACCU-CHEK XX SCH ×2 (08:12→22:00)
[2017-02-24] MEDS: DOCUSATE SODIUM 100 MG CAP PO SCH ×2 (08:13→22:00)
[2017-02-24] MEDS: NICOTINE (14 MG/24 HR) PATCH TRANSDERM SCH (08:13)
[2017-02-24] MEDS: FEBUXOSTAT 40 MG TABLET PO SCH (08:13)
[2017-02-24] MEDS: FISH OIL 1,000 MG CAP PO SCH ×2 (08:13→22:05)
[2017-02-24] MEDS: SEVELAMER 800 MG TAB PO SCH ×3 (08:13→17:52)
[2017-02-24] MEDS: ISOSORBIDE MONONITRATE(SR)60 MG TAB PO SCH (08:14)
[2017-02-24] MEDS: MULTIVIT/CA CARB/B CMPLX/FA TAB PO SCH (08:15)
[2017-02-24] MEDS: FAMOTIDINE 20 MG TAB PO SCH (08:15)
[2017-02-24] MEDS: PRASUGREL HYDROCHLORIDE 10 MG TABLET PO SCH (08:15)
[2017-02-24] MEDS: BETHANECHOL 10 MG TAB PO SCH ×3 (08:15→22:06)
[2017-02-24] MEDS: LINAGLIPTIN 5 MG TABLET PO SCH (08:15)
[2017-02-24] MEDS: NIFEdipine (XL) 30 MG TAB PO SCH ×2 (08:15→22:05)
[2017-02-24] MEDS: BALSAM PERU/CASTOR OIL 60 GM TUBE TOP SCH ×2 (08:16→22:08)
--- NOTE | 2017-02-24 10:02 | CONS ---
Date/Time of Note Date/Time of Note DATE: 02/24/17 TIME: 10:02 Consult Date/Type/Reason Admit Date/Time Feb 17, 2017 at 20:40 Type of Consultation: neph Ordering Provider: MAURO SPENCER [facility] Subjective feeling better Objective Pulm-cta mod transfer Vital Signs Date Time Temp Pulse Resp B/P Pulse Ox O2 Delivery O2 Flow Rate FiO2 02/24/17 07:00 99.1 77 18 162/70 92 02/24/17 02:00 Room Air Intake and Output 02/23/17 02/23/17 02/24/17 15:00 23:00 07:00 Intake Total 1200 ml 240 ml Output Total 500 ml 800 ml Balance -500 ml 400 ml 240 ml Results/Medications Result Diagram: 02/22/1762402/22/17624 Results 24 hrs Laboratory Tests Test 02/23/17 12:20 02/23/17 17:40 02/23/17 21:29 02/24/17 08:10 Bedside Glucose 112 107 105 90 Medications Current Medications Polyethylene Glycol (Miralax) 17 gm BID PO Last administered on 02/23/17 09: 30; Admin Dose 17 GM; Start 02/17/17 at 23:00 Prasugrel (Effient) 10 mg DAILY PO Last administered on 02/24/17 08:15; Admin Dose 10 MG; Start 02/18/17 at 09:00 Ropinirole HCl (Requip) 0.25 mg HS PO Last administered on 02/23/17 21:22; Admin Dose 0.25 MG; Start 02/17/17 at 23:00 Tamsulosin HCl (Flomax) 0.4 mg DAILY@21 PO Last administered on 02/23/17 21: 23; Admin Dose 0.4 MG; Start 02/17/17 at 23:00 Zolpidem Tartrate (Ambien) 10 mg HS PRN PO INSOMNIA Last administered on 22:05; Admin Dose 10 MG; Start 02/17/17 at 23:15 Multivit/Ca Carb/ B Cmplx/FA/Prenat (Paulina-Chrissy) 1 tab DAILY PO Last administered on 02/24/17 08:15; Admin Dose 1 TAB; Start 02/18/17 at 09:00 Nicotine (Nicoderm 14 Mg/ 24hr) 1 patch DAILY TRANSDERM Last administered on 08:13; Admin Dose 1 PATCH; Start 02/18/17 at 09:00 Hydralazine HCl (Apresoline) 50 mg BID PO Last administered on 02/24/17 08:16 ; Admin Dose 50 MG; Start 02/17/17 at 23:00 Acetaminophen/ Hydrocodone Bitart ([place] (5/325)) 2 tab Q4H PRN PO PAIN Last administered on 02/19/17 08:38; Admin Dose 2 TAB; Start 02/17/17 at 23:30 Acetaminophen/ Hydrocodone Bitart ([place] (5/325)) 1 tab Q4H PRN PO PAIN; Start 02/17/17 at 23:30 Isosorbide Mononitrate (Imdur) 60 mg DAILY PO Last administered on 02/24/17 08:14; Admin Dose 60 MG; Start 02/18/17 at 09:00 Fish Oil (Fish Oil) 1,000 mg BID PO Last administered on 02/24/17 08:13; Admin Dose 1,000 MG; Start 02/17/17 at 23:15 Docusate Sodium (Colace) 100 mg BID PO Last administered on 02/24/17 08:13; Admin Dose 100 MG; Start 02/17/17 at 23:15 Ergocalciferol (Drisdol) 50,000 unit Tu@09 PO Last administered on 02/23/17 09:29; Admin Dose 50,000 UNIT; Start 02/23/17 at 09:00 Famotidine (Pepcid) 20 mg DAILY PO Last administered on 02/24/17 08:15; Admin Dose 20 MG; Start 02/18/17 at 09:00 Febuxostat (Uloric) 40 mg DAILY PO Last administered on 02/24/17 08:13; Admin Dose 40 MG; Start 02/18/17 at 09:00 Acetaminophen (Tylenol Tab) 650 mg Q6H PRN PO PAIN AND OR ELEVATED TEMP; Start 02/17/17 at 23:15 Atorvastatin Calcium (Lipitor) 10 mg DAILY@21 PO Last administered on 21:22; Admin Dose 10 MG; Start 02/17/17 at 23:15 Bisacodyl (Dulcolax) 10 mg DAILY PRN PO CONSTIPATION; Start 02/17/17 at 23:30 Clonidine (Catapres) 0.1 mg TID PRN PO SBP ABOVE 160mmHg Last administered on 02/22/17 02:15; Admin Dose 0.1 MG; Start 02/17/17 at 23:30 Linagliptin (Tradjenta) 5 mg DAILY PO Last administered on 02/24/17 08:15; Admin Dose 5 MG; Start 02/18/17 at 14:36 Miscellaneous Information 1 ea NOTE XX ; Start 02/18/17 at 15:00 Glucose (Glutose) 15 gm Q15M PRN PO DECREASED GLUCOSE; Start 02/18/17 at 15:00 Glucose (Glutose) 22.5 gm Q15M PRN PO DECREASED GLUCOSE; Start 02/18/17 at 15: 00 Dextrose (D50w Syringe) 25 ml Q15M PRN IV DECREASED GLUCOSE; Start 02/18/17 at 15:00 Dextrose (D50w Syringe) 50 ml Q15M PRN IV DECREASED GLUCOSE; Start 02/18/17 at 15:00 Glucagon (Glucagen) 1 mg Q15M PRN IM DECREASED GLUCOSE; Start 02/18/17 at 15:00 Glucose (Glutose) 15 gm Q15M PRN BUCCAL DECREASED GLUCOSE; Start 02/18/17 at 15 :00 Nifedipine (Procardia Xl) 30 mg BID PO Last administered on 02/24/17 08:15; Admin Dose 30 MG; Start 02/18/17 at 21:00 Carvedilol (Coreg) 12.5 mg BID PO Last administered on 02/24/17 08:14; Admin Dose 12.5 MG; Start 02/22/17 at 21:00 Diagnostic Test (Pha) (Accu-Chek) 1 ea BID XX Last administered on 02/24/17 08:12; Admin Dose 1 EA; Start 02/22/17 at 21:00 Epoetin Keven (Epogen (Esrd)) 6,000 units MoWeFr@17 IV Last administered on 02/22 16:22; Admin Dose 6,000 UNITS; Start 02/22/17 at 17:00 Bethanechol Chloride (Urecholine) 10 mg TID PO Last administered on 02/24/17 08:15; Admin Dose 10 MG; Start 02/22/17 at 21:00 Assessment/Plan Additional Assessment/Plan Rehab-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 Urinary tract infection. Congestive heart failure. Hypertension. JESSICA ADAMS MD Feb 24, 2017 10:02
--- NOTE | 2017-02-24 12:10 | PN ---
Date/Time of Note Date/Time of Note DATE: 02/24/17 TIME: 12:10 Assessment/Plan VTE Prophylaxis VTE Prophylaxis Intervention: other Lines/Catheters IV Catheter Type (from [facility]): [facility] Urinary Cath still in place: No Assessment/Plan Chief Complaint/Hosp Course renal follow up SUBJECTIVE: no events noted. No vitals. No fevers, chills, nausea, vomiting. OBJECTIVE: HEENT: Head is normocephalic. Pupils are reactive to light. NECK: Supple. HEART: Regular rate. LUNGS: Show diminished breath sounds at base. ABDOMEN: Soft, nontender to palpation. No rebound or guarding. EXTREMITIES: Negative for clubbing, cyanosis. No edema. DERMATOLOGIC: No rashes. MUSCULOSKELETAL: No joint effusions. NEUROLOGIC: No change in exam. MEDICATIONS: The patient's medications have been reviewed. ASSESSMENT AND PLAN: 1. End-stage renal disease. continue hd today 2. Anemia. Monitor hemoglobin and hematocrit levels. Continue Epogen. 3. Mineral bone disorder. Continue to monitor calcium and phosphorus levels. 4. Congestive heart failure. Continue medical management. 5. Hypertension. Continue current blood pressure regimen. 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 7. Diabetes. Continue Accu-Cheks and insulin sliding scale. 8. Thrombocytopenia. Continue to monitor. Consider holding heparin. Problems: Exam/Review of Systems Vital Signs Vitals Vital Signs Date Time Temp Pulse Resp B/P Pulse Ox O2 Delivery O2 Flow Rate FiO2 02/24/17 07:00 99.1 77 18 162/70 92 02/24/17 02:00 Room Air Intake and Output 02/23/17 02/23/17 02/24/17 15:00 23:00 07:00 Intake Total 1200 ml 240 ml Output Total 500 ml 800 ml Balance -500 ml 400 ml 240 ml Results Result Diagram: 02/22/17 0625 02/22/17 0625 Results 24 hrs Laboratory Tests Test 02/23/17 12:20 02/23/17 17:40 02/23/17 21:29 02/24/17 08:10 Bedside Glucose 112 107 105 90 Medications Medications Current Medications Polyethylene Glycol (Miralax) 17 gm BID PO Last administered on 02/23/17t 09: 30; Admin Dose 17 GM; Start 02/17/17 at 23:00 Prasugrel (Effient) 10 mg DAILY PO Last administered on 02/24/17 08:15; Admin Dose 10 MG; Start 02/18/17 at 09:00 Ropinirole HCl (Requip) 0.25 mg HS PO Last administered on 02/23/17 21:22; Admin Dose 0.25 MG; Start 02/17/17 at 23:00 Tamsulosin HCl (Flomax) 0.4 mg DAILY@21 PO Last administered on 02/23/17 21: 23; Admin Dose 0.4 MG; Start 02/17/17 at 23:00 Zolpidem Tartrate (Ambien) 10 mg HS PRN PO INSOMNIA Last administered on 22:05; Admin Dose 10 MG; Start 02/17/17 at 23:15 Multivit/Ca Carb/ B Cmplx/FA/Prenat (Paulina-Chrissy) 1 tab DAILY PO Last administered on 02/24/17 08:15; Admin Dose 1 TAB; Start 02/18/17 at 09:00 Nicotine (Nicoderm 14 Mg/ 24hr) 1 patch DAILY TRANSDERM Last administered on 08:13; Admin Dose 1 PATCH; Start 02/18/17 at 09:00 Hydralazine HCl (Apresoline) 50 mg BID PO Last administered on 02/24/17 08:16 ; Admin Dose 50 MG; Start 02/17/17 at 23:00 Acetaminophen/ Hydrocodone Bitart ([place] (5/325)) 2 tab Q4H PRN PO PAIN Last administered on 02/19/17 08:38; Admin Dose 2 TAB; Start 02/17/17 at 23:30 Acetaminophen/ Hydrocodone Bitart ([place] (5/325)) 1 tab Q4H PRN PO PAIN; Start 02/17/17 at 23:30 Isosorbide Mononitrate (Imdur) 60 mg DAILY PO Last administered on 02/24/17 08:14; Admin Dose 60 MG; Start 02/18/17 at 09:00 Fish Oil (Fish Oil) 1,000 mg BID PO Last administered on 02/24/17 08:13; Admin Dose 1,000 MG; Start 02/17/17 at 23:15 Docusate Sodium (Colace) 100 mg BID PO Last administered on 02/24/17 08:13; Admin Dose 100 MG; Start 02/17/17 at 23:15 Ergocalciferol (Drisdol) 50,000 unit Tu@09 PO Last administered on 02/23/17 09:29; Admin Dose 50,000 UNIT; Start 02/23/17 at 09:00 Famotidine (Pepcid) 20 mg DAILY PO Last administered on 02/24/17 08:15; Admin Dose 20 MG; Start 02/18/17 at 09:00 Febuxostat (Uloric) 40 mg DAILY PO Last administered on 02/24/17 08:13; Admin Dose 40 MG; Start 02/18/17 at 09:00 Acetaminophen (Tylenol Tab) 650 mg Q6H PRN PO PAIN AND OR ELEVATED TEMP; Start 02/17/17 at 23:15 Atorvastatin Calcium (Lipitor) 10 mg DAILY@21 PO Last administered on 21:22; Admin Dose 10 MG; Start 02/17/17 at 23:15 Bisacodyl (Dulcolax) 10 mg DAILY PRN PO CONSTIPATION; Start 02/17/17 at 23:30 Clonidine (Catapres) 0.1 mg TID PRN PO SBP ABOVE 160mmHg Last administered on 02/22/17 02:15; Admin Dose 0.1 MG; Start 02/17/17 at 23:30 Linagliptin (Tradjenta) 5 mg DAILY PO Last administered on 02/24/17 08:15; Admin Dose 5 MG; Start 02/18/17 at 14:36 Miscellaneous Information 1 ea NOTE XX ; Start 02/18/17 at 15:00 Glucose (Glutose) 15 gm Q15M PRN PO DECREASED GLUCOSE; Start 02/18/17 at 15:00 Glucose (Glutose) 22.5 gm Q15M PRN PO DECREASED GLUCOSE; Start 02/18/17 at 15: 00 Dextrose (D50w Syringe) 25 ml Q15M PRN IV DECREASED GLUCOSE; Start 02/18/17 at 15:00 Dextrose (D50w Syringe) 50 ml Q15M PRN IV DECREASED GLUCOSE; Start 02/18/17 at 15:00 Glucagon (Glucagen) 1 mg Q15M PRN IM DECREASED GLUCOSE; Start 02/18/17 at 15:00 Glucose (Glutose) 15 gm Q15M PRN BUCCAL DECREASED GLUCOSE; Start 02/18/17 at 15 :00 Nifedipine (Procardia Xl) 30 mg BID PO Last administered on 02/24/17 08:15; Admin Dose 30 MG; Start 02/18/17 at 21:00 Carvedilol (Coreg) 12.5 mg BID PO Last administered on 02/24/17 08:14; Admin Dose 12.5 MG; Start 02/22/17 at 21:00 Diagnostic Test (Pha) (Accu-Chek) 1 ea BID XX Last administered on 02/24/17 08:12; Admin Dose 1 EA; Start 02/22/17 at 21:00 Epoetin Keven (Epogen (Esrd)) 6,000 units MoWeFr@17 IV Last administered on 02/22 16:22; Admin Dose 6,000 UNITS; Start 02/22/17 at 17:00 Bethanechol Chloride (Urecholine) 10 mg TID PO Last administered on 02/24/17 08:15; Admin Dose 10 MG; Start 02/22/17 at 21:00 IGOR MORFIN DO Feb 24, 2017 12:10
--- NOTE | 2017-02-24 12:45 | PN ---
Date/Time of Note Date/Time of Note DATE: 02/24/17 TIME: 12:42 Assessment/Plan VTE Prophylaxis VTE Prophylaxis Intervention: SCD's Lines/Catheters IV [facility] Type (from [facility] Urinary Cath still in place: No Assessment/Plan Chief Complaint/Hosp Course 1. 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 The patient undergoing acute rehabilitation. 2. 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 3. End-stage renal disease, on hemodialysis. Nephrology following. 4. Status post sepsis with underlying urinary tract infection and Klebsiella pneumoniae bacteremia. Latest urine culture negative. 5. Diabetes mellitus. Blood sugars well controlled off any treatment. Latest hemoglobin A1c 4.9. 6. Coronary artery disease. Continue antiplatelet therapy. 7. Dyslipidemia. Continue statins and fish oil. 8. Anemia of chronic kidney disease. Epogen dosing as per nephrology. 9. Obesity. Weight reduction advised. 10. Nicotine use. Cessation advised. 11. Benign prostatic hypertrophy. Continue tamsulosin. 12. Urinary retention. S/P evaluation by Urology. On urecholine. 13. Hypertension. Continue antihypertensives. 14. Fluids, electrolytes, and nutrition. Renal, carbohydrate controlled diet. 15. DVT prophylaxis. B/L SCDs. 16. Plan. Continue acute rehabilitation. Case discussed with . Problems: Subjective 24 Hr Interval Summary Free Text/Dictation Progressing well with PT. Exam/Review of Systems Vital Signs Vitals Vital Signs Date Time Temp Pulse Resp B/P Pulse Ox O2 Delivery O2 Flow Rate FiO2 02/24/17 07:00 99.1 77 18 162/70 92 02/24/17 02:00 Room Air Intake and Output 02/23/17 02/23/17 02/24/17 15:00 23:00 07:00 Intake Total 1200 ml 240 ml Output Total 500 ml 800 ml Balance -500 ml 400 ml 240 ml Exam General: Adequately build 81 year-old male lying in bed in no apparent distress. HEENT: Normocephalic, atraumatic. Eyes: Anicteric sclerae, conjunctivae clear. ENT: Nasal septum midline, oral mucosa moist. Neck supple, no JVD noticed. Respiratory: Bilaterally clear breath sounds. No use of accessory muscles of respiration. No adventitious breath sounds. Cardiovascular: S1, S2 heard. No murmurs or gallops. Abdomen: Soft, nontender, and nondistended. Bowel sounds positive in all 4 quadrants. Genitourinary: Deferred. Extremities: No cyanosis, no clubbing, no edema. Peripheral pulses palpable. Neurologic: Cranial nerves II through XII grossly intact. The patient is awake, alert, and oriented. B/L LE 4/5 strength. B/L UE 5/5 strength. Skin: Normal skin turgor. No skin rashes. Results Result Diagram: 02/22/1762402/22/17 06 Results 24 hrs Laboratory Tests Test 02/23/17 17:40 02/23/17 21:29 02/24/17 08:10 Bedside Glucose 107 105 90 Medications Medications Current Medications Polyethylene Glycol (Miralax) 17 gm BID PO Last administered on 02/23/17 09: 30; Admin Dose 17 GM; Start 02/17/17 at 23:00 Prasugrel (Effient) 10 mg DAILY PO Last administered on 02/24/17 08:15; Admin Dose 10 MG; Start 02/18/17 at 09:00 Ropinirole HCl (Requip) 0.25 mg HS PO Last administered on 02/23/17 21:22; Admin Dose 0.25 MG; Start 02/17/17 at 23:00 Tamsulosin HCl (Flomax) 0.4 mg DAILY@21 PO Last administered on 02/23/17 21: 23; Admin Dose 0.4 MG; Start 02/17/17 at 23:00 Zolpidem Tartrate (Ambien) 10 mg HS PRN PO INSOMNIA Last administered on 22:05; Admin Dose 10 MG; Start 02/17/17 at 23:15 Multivit/Ca Carb/ B Cmplx/FA/Prenat (Paulina-Chrissy) 1 tab DAILY PO Last administered on 02/24/17 08:15; Admin Dose 1 TAB; Start 02/18/17 at 09:00 Nicotine (Nicoderm 14 Mg/ 24hr) 1 patch DAILY TRANSDERM Last administered on 08:13; Admin Dose 1 PATCH; Start 02/18/17 at 09:00 Hydralazine HCl (Apresoline) 50 mg BID PO Last administered on 02/24/17 08:16 ; Admin Dose 50 MG; Start 02/17/17 at 23:00 Acetaminophen/ Hydrocodone Bitart ([place] (5/325)) 2 tab Q4H PRN PO PAIN Last administered on 02/19/17 08:38; Admin Dose 2 TAB; Start 02/17/17 at 23:30 Acetaminophen/ Hydrocodone Bitart ([place] (5/325)) 1 tab Q4H PRN PO PAIN; Start 02/17/17 at 23:30 Isosorbide Mononitrate (Imdur) 60 mg DAILY PO Last administered on 02/24/17 08:14; Admin Dose 60 MG; Start 02/18/17 at 09:00 Fish Oil (Fish Oil) 1,000 mg BID PO Last administered on 02/24/17 08:13; Admin Dose 1,000 MG; Start 02/17/17 at 23:15 Docusate Sodium (Colace) 100 mg BID PO Last administered on 02/24/17 08:13; Admin Dose 100 MG; Start 02/17/17 at 23:15 Ergocalciferol (Drisdol) 50,000 unit Tu@09 PO Last administered on 02/23/17 09:29; Admin Dose 50,000 UNIT; Start 02/23/17 at 09:00 Famotidine (Pepcid) 20 mg DAILY PO Last administered on 02/24/17 08:15; Admin Dose 20 MG; Start 02/18/17 at 09:00 Febuxostat (Uloric) 40 mg DAILY PO Last administered on 02/24/17 08:13; Admin Dose 40 MG; Start 02/18/17 at 09:00 Acetaminophen (Tylenol Tab) 650 mg Q6H PRN PO PAIN AND OR ELEVATED TEMP; Start 02/17/17 at 23:15 Atorvastatin Calcium (Lipitor) 10 mg DAILY@21 PO Last administered on 21:22; Admin Dose 10 MG; Start 02/17/17 at 23:15 Bisacodyl (Dulcolax) 10 mg DAILY PRN PO CONSTIPATION; Start 02/17/17 at 23:30 Clonidine (Catapres) 0.1 mg TID PRN PO SBP ABOVE 160mmHg Last administered on 02/22/17 02:15; Admin Dose 0.1 MG; Start 02/17/17 at 23:30 Linagliptin (Tradjenta) 5 mg DAILY PO Last administered on 02/24/17 08:15; Admin Dose 5 MG; Start 02/18/17 at 14:36 Miscellaneous Information 1 ea NOTE XX ; Start 02/18/17 at 15:00 Glucose (Glutose) 15 gm Q15M PRN PO DECREASED GLUCOSE; Start 02/18/17 at 15:00 Glucose (Glutose) 22.5 gm Q15M PRN PO DECREASED GLUCOSE; Start 02/18/17 at 15: 00 Dextrose (D50w Syringe) 25 ml Q15M PRN IV DECREASED GLUCOSE; Start 02/18/17 at 15:00 Dextrose (D50w Syringe) 50 ml Q15M PRN IV DECREASED GLUCOSE; Start 02/18/17 at 15:00 Glucagon (Glucagen) 1 mg Q15M PRN IM DECREASED GLUCOSE; Start 02/18/17 at 15:00 Glucose (Glutose) 15 gm Q15M PRN BUCCAL DECREASED GLUCOSE; Start 02/18/17 at 15 :00 Nifedipine (Procardia Xl) 30 mg BID PO Last administered on 02/24/17 08:15; Admin Dose 30 MG; Start 02/18/17 at 21:00 Carvedilol (Coreg) 12.5 mg BID PO Last administered on 02/24/17 08:14; Admin Dose 12.5 MG; Start 02/22/17 at 21:00 Diagnostic Test (Pha) (Accu-Chek) 1 ea BID XX Last administered on 02/24/17 08:12; Admin Dose 1 EA; Start 02/22/17 at 21:00 Epoetin Keven (Epogen (Esrd)) 6,000 units MoWeFr@17 IV Last administered on 02/22 16:22; Admin Dose 6,000 UNITS; Start 02/22/17 at 17:00 Bethanechol Chloride (Urecholine) 10 mg TID PO Last administered on 02/24/17 08:15; Admin Dose 10 MG; Start 02/22/17 at 21:00 ALICIA ISAACS NP Feb 24, 2017 12:45
[2017-02-24] MEDS: EPOETIN 3000 UNITS/1 ML INJ (ESRD) IV SCH (17:53)
--- NOTE | 2017-02-24 21:12 | PN ---
Date/Time of Note Date/Time of Note DATE: 02/24/17 TIME: 21:08 Assessment/Plan VTE Prophylaxis VTE Prophylaxis Intervention: LMWH Lines/Catheters [facility]from [facility] Urinary Cath still in place: No Assessment/Plan Chief Complaint/Hosp Course 81-year-old male with a history of West Nile virus meningitis and urinary retention. Patient was started on 10 mg of Urecholine 3 times a day. He was voiding and the postvoid residual yesterday has been small about 18 mL. However patient has not voided last night and this morning he was catheterized and 550 mL drained Continue to check his voiding and his postvoid residual and if needed do straight cath on him Problems: Subjective 24 Hr Interval Summary Subjective hx not possible: other (Patient being dialyzed at the present) Eyes: no complaints ENT: no complaints Respiratory: no complaints Cardiovascular: no complaints Gastrointestinal: no complaints Genitourinary: other (Has not voided today and at 6:00 this morning he was catheterized for 550 mL) Musculoskeletal: no complaints Skin: no complaints Neurologic: no complaints Endocrine: no complaints Exam/Review of Systems Vital Signs Vitals Vital Signs Date Time Temp Pulse Resp B/P Pulse Ox O2 Delivery O2 Flow Rate FiO2 02/24/17 20:02 97.8 75 18 148/70 92 02/24/17 02:00 Room Air Intake and Output 02/23/17 02/23/17 02/24/17 15:00 23:00 07:00 Intake Total 1200 ml 240 ml Output Total 500 ml 800 ml Balance -500 ml 400 ml 240 ml Exam Constitutional: alert Psych: no complaints Head: normocephalic Eyes: nl conjunctiva ENMT: nl external ears & nose Neck: supple Respiratory: normal air movement Cardiovascular: No edema Gastrointestinal: soft Genitourinary - Male: No CVA tenderness Results Result Diagram: 02/22/17 0625 02/22/17 0625 Results 24 hrs Laboratory Tests Test 02/23/17 21:29 02/24/17 08:10 Bedside Glucose 105 90 Medications Medications Current Medications Polyethylene Glycol (Miralax) 17 gm BID PO Last administered on 02/23/17 09: 30; Admin Dose 17 GM; Start 02/17/17 at 23:00 Prasugrel (Effient) 10 mg DAILY PO Last administered on 02/24/17 08:15; Admin Dose 10 MG; Start 02/18/17 at 09:00 Ropinirole HCl (Requip) 0.25 mg HS PO Last administered on 02/23/17 21:22; Admin Dose 0.25 MG; Start 02/17/17 at 23:00 Tamsulosin HCl (Flomax) 0.4 mg DAILY@21 PO Last administered on 02/23/17 21: 23; Admin Dose 0.4 MG; Start 02/17/17 at 23:00 Zolpidem Tartrate (Ambien) 10 mg HS PRN PO INSOMNIA Last administered on 22:05; Admin Dose 10 MG; Start 02/17/17 at 23:15 Multivit/Ca Carb/ B Cmplx/FA/Prenat (Paulina-Chrissy) 1 tab DAILY PO Last administered on 02/24/17 08:15; Admin Dose 1 TAB; Start 02/18/17 at 09:00 Nicotine (Nicoderm 14 Mg/ 24hr) 1 patch DAILY TRANSDERM Last administered on 08:13; Admin Dose 1 PATCH; Start 02/18/17 at 09:00 Hydralazine HCl (Apresoline) 50 mg BID PO Last administered on 02/24/17 08:16 ; Admin Dose 50 MG; Start 02/17/17 at 23:00 Acetaminophen/ Hydrocodone Bitart ([place] (5/325)) 2 tab Q4H PRN PO PAIN Last administered on 02/19/17 08:38; Admin Dose 2 TAB; Start 02/17/17 at 23:30 Acetaminophen/ Hydrocodone Bitart ([place] (5/325)) 1 tab Q4H PRN PO PAIN; Start 02/17/17 at 23:30 Isosorbide Mononitrate (Imdur) 60 mg DAILY PO Last administered on 02/24/17 08:14; Admin Dose 60 MG; Start 02/18/17 at 09:00 Fish Oil (Fish Oil) 1,000 mg BID PO Last administered on 02/24/17 08:13; Admin Dose 1,000 MG; Start 02/17/17 at 23:15 Docusate Sodium (Colace) 100 mg BID PO Last administered on 02/24/17 08:13; Admin Dose 100 MG; Start 02/17/17 at 23:15 Ergocalciferol (Drisdol) 50,000 unit Tu@09 PO Last administered on 02/23/17 09:29; Admin Dose 50,000 UNIT; Start 02/23/17 at 09:00 Famotidine (Pepcid) 20 mg DAILY PO Last administered on 02/24/17 08:15; Admin Dose 20 MG; Start 02/18/17 at 09:00 Febuxostat (Uloric) 40 mg DAILY PO Last administered on 02/24/17 08:13; Admin Dose 40 MG; Start 02/18/17 at 09:00 Acetaminophen (Tylenol Tab) 650 mg Q6H PRN PO PAIN AND OR ELEVATED TEMP; Start 02/17/17 at 23:15 Atorvastatin Calcium (Lipitor) 10 mg DAILY@21 PO Last administered on 21:22; Admin Dose 10 MG; Start 02/17/17 at 23:15 Bisacodyl (Dulcolax) 10 mg DAILY PRN PO CONSTIPATION; Start 02/17/17 at 23:30 Clonidine (Catapres) 0.1 mg TID PRN PO SBP ABOVE 160mmHg Last administered on 02/22/17 02:15; Admin Dose 0.1 MG; Start 02/17/17 at 23:30 Linagliptin (Tradjenta) 5 mg DAILY PO Last administered on 02/24/17 08:15; Admin Dose 5 MG; Start 02/18/17 at 14:36 Miscellaneous Information 1 ea NOTE XX ; Start 02/18/17 at 15:00 Glucose (Glutose) 15 gm Q15M PRN PO DECREASED GLUCOSE; Start 02/18/17 at 15:00 Glucose (Glutose) 22.5 gm Q15M PRN PO DECREASED GLUCOSE; Start 02/18/17 at 15: 00 Dextrose (D50w Syringe) 25 ml Q15M PRN IV DECREASED GLUCOSE; Start 02/18/17 at 15:00 Dextrose (D50w Syringe) 50 ml Q15M PRN IV DECREASED GLUCOSE; Start 02/18/17 at 15:00 Glucagon (Glucagen) 1 mg Q15M PRN IM DECREASED GLUCOSE; Start 02/18/17 at 15:00 Glucose (Glutose) 15 gm Q15M PRN BUCCAL DECREASED GLUCOSE; Start 10/5/17 at 15 :00 Nifedipine (Procardia Xl) 30 mg BID PO Last administered on 02/24/17 08:15; Admin Dose 30 MG; Start 02/18/17 at 21:00 Carvedilol (Coreg) 12.5 mg BID PO Last administered on 02/24/17 08:14; Admin Dose 12.5 MG; Start 02/22/17 at 21:00 Diagnostic Test (Pha) (Accu-Chek) 1 ea BID XX Last administered on 02/24/17 08:12; Admin Dose 1 EA; Start 02/22/17 at 21:00 Epoetin Keven (Epogen (Esrd)) 6,000 units MoWeFr@17 IV Last administered on 17:53; Admin Dose 6,000 UNITS; Start 02/22/17 at 17:00 Bethanechol Chloride (Urecholine) 10 mg TID PO Last administered on 02/24/17 13:26; Admin Dose 10 MG; Start 02/22/17 at 21:00 VANE PYATON MD Feb 24, 2017 21:12
[2017-02-24] MEDS: ATORVASTATIN 10 MG TAB PO SCH (22:05)
[2017-02-24] MEDS: TAMSULOSIN (SR) 0.4 MG CAP PO SCH (22:06)
[2017-02-24] MEDS: ROPINIROLE 0.25 MG TAB PO SCH (22:06)
[2017-02-24] MEDS: ZOLPIDEM 5 MG TAB PO PRN (22:08)
[2017-02-25 02:00] VITALS: BP 134/68; RESP 18
[2017-02-25 07:30] VITALS: BP 145/67; RESP 20
[2017-02-25] MEDS: ACCU-CHEK XX SCH ×2 (08:14→21:04)
[2017-02-25] MEDS: SEVELAMER 800 MG TAB PO SCH ×3 (08:30→17:50)
[2017-02-25] MEDS: NIFEdipine (XL) 30 MG TAB PO SCH ×2 (08:30→21:01)
[2017-02-25] MEDS: MULTIVIT/CA CARB/B CMPLX/FA TAB PO SCH (08:31)
[2017-02-25] MEDS: BETHANECHOL 10 MG TAB PO SCH ×3 (08:31→21:01)
[2017-02-25] MEDS: PRASUGREL HYDROCHLORIDE 10 MG TABLET PO SCH (08:31)
[2017-02-25] MEDS: FAMOTIDINE 20 MG TAB PO SCH (08:31)
[2017-02-25] MEDS: FISH OIL 1,000 MG CAP PO SCH ×2 (08:31→21:01)
[2017-02-25] MEDS: DOCUSATE SODIUM 100 MG CAP PO SCH ×2 (08:31→21:00)
[2017-02-25] MEDS: ISOSORBIDE MONONITRATE(SR)60 MG TAB PO SCH (08:32)
[2017-02-25] MEDS: LINAGLIPTIN 5 MG TABLET PO SCH (08:32)
[2017-02-25] MEDS: FEBUXOSTAT 40 MG TABLET PO SCH (08:32)
[2017-02-25] MEDS: NICOTINE (14 MG/24 HR) PATCH TRANSDERM SCH (08:32)
[2017-02-25] MEDS: BALSAM PERU/CASTOR OIL 60 GM TUBE TOP SCH ×2 (08:39→21:04)
[2017-02-25] MEDS: POLYETHYLENE GLYCOL 17 GM PACKET PO SCH ×2 (08:40→21:00)
--- NOTE | 2017-02-25 09:04 | CONS ---
DATE OF ADMISSION: 02/17/2017 DATE OF CONSULTATION: 02/24/2017 TYPE OF CONSULTATION: Psychological. REFERRING PHYSICIAN: Jessica Paez MD CONSULTING PSYCHOLOGIST: Prnicess Wren, PhD REASON FOR CONSULTATION: This consultation was requested by Dr. Andrei Paez in order to evaluate the cognitive and emotional functioning of this patient related to his present medical condition. HISTORY OF PRESENT ILLNESS: The patient is an 81-year-old male. 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 The patient lost control of his legs . The patient is in pain. The patient does not speak Emirati. The patient was born in [facility] and speaks Irish. The patient was interviewed with the assistance of Sheba Blanco, [facility], who assisted in the translation. The patient is frustrated about his medical illness and is very depressed, even though he kind of described himself as not depressed. The patient's nurse reported that he was crying prior to my entering the room because he is incontinent of both bowel an d bladder and was very upset about this fact. The patient is motivated to get better and does want to return to his previous level of functioning. FAMILY AND SOCIAL HISTORY: The patient reports that he lives in an apartment in [place]. He says that his adult son comes and goes. MEDICATIONS: The patient is currently not on any psychotropic medications. SUBSTANCE USE: The patient reports that he used to smoke a pack of cigarettes per day. The patient reports that he has not smoked since he has been in the hospital. The patient says that he does dr ink for special occasions. MENTAL STATUS EXAMINATION: APPEARANCE: The patient was seen sitting on the side of his bed. He is of average height and weigh t. The patient has haji hair and is right-handed. BEHAVIOR: The patient was cooperative during the consultation. The patient did attempt to answer a ll questions presented to him by the interviewer through the instructor military science. MOOD AND AFFECT: The patient's mood appears to be depressed. Affect does appear to be slightly anx ious. PERCEPTION: The patient reports no hallucinations or delusions. The patient was alert person, plac e, situation and time. MEMORY AND COGNITION: The patient's memory and cognition have some impairment. He was able to name the hospital. He was able to name the month and the year. He could not name the design architect. The patient could not do serial 7 subtractions from 100. The patient was unable to spell "world" backwards. This may be a result of the language difficulty and the fact that he was v sean upset. The patient [place] been in this country [place], however, and seemed to be aware of hi s surroundings. INTELLIGENCE: Intelligence appears to fall in the average range when he is functioning adequately. INSIGHT: Fair. JUDGMENT: Fair. THOUGHT CONTENT: The patient is concerned about his present medical condition. The patient is frus trated about all his problems and that he cannot take care of himself as he would like to. DISCUSSION: The patient can likely benefit from some cognitive/behavioral psychotherapy while he is on the unit. The psychotherapy would focus on his level of frustration regarding his medical probl ems and his cognitive problems. DIAGNOSTIC IMPRESSION: 1. 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 2. F06.8, cognitive disorder, not otherwise specified. Thank you very much, Dr. Andrei Paez, for referring this individual. Please do not hesitate to ca ll if you have any additional questions. Dictated By: PRINCESS WREN PHD MAGDA/CORA Conf#: [id number] DID#: [id number] CC: JESSICA PAEZ MD;*EndCC*
--- NOTE | 2017-02-25 11:55 | CONS ---
Date/Time of Note Date/Time of Note DATE: 02/25/17 TIME: 11:54 Consult Date/Type/Reason Admit Date/Time Feb 17, 2017 at 20:40 Initial Consult Date 02/22/17 Type of Consultation: neph Reason for Consultation UBJECTIVE: The patient tolerated hd yesterday. No other events noted. No vitals. No fevers, chills, nausea, vomiting. OBJECTIVE: HEENT: Head is normocephalic. Pupils are reactive to light. NECK: Supple. HEART: Regular rate. LUNGS: Show diminished breath sounds at base. ABDOMEN: Soft, nontender to palpation. No rebound or guarding. EXTREMITIES: Negative for clubbing, cyanosis. No edema. DERMATOLOGIC: No rashes. MUSCULOSKELETAL: No joint effusions. NEUROLOGIC: No change in exam. MEDICATIONS: The patient's medications have been reviewed Ordering Provider: MAURO SPENCER MD, [facility] Objective Vital Signs Date Time Temp Pulse Resp B/P Pulse Ox O2 Delivery O2 Flow Rate FiO2 02/25/17 07:30 99.0 78 20 145/67 95 02/24/17 02:00 Room Air Intake and Output 02/24/17 02/24/17 02/25/17 15:00 23:00 07:00 Intake Total 1300 ml 240 ml Output Total 550 ml 3300 ml 2200 ml Balance -550 ml -2000 ml -1960 ml Results/Medications Result Diagram: 02/22/1725 02/22/1725 Results 24 hrs Laboratory Tests Test 02/24/17 21:59 02/25/17 08:10 Bedside Glucose 199 114 Medications Current Medications Polyethylene Glycol (Miralax) 17 gm BID PO Last administered on 02/23/17 09: 30; Admin Dose 17 GM; Start 02/17/17 at 23:00 Prasugrel (Effient) 10 mg DAILY PO Last administered on 02/25/17 08:31; Admin Dose 10 MG; Start 02/18/17 at 09:00 Ropinirole HCl (Requip) 0.25 mg HS PO Last administered on 02/24/17 22:06; Admin Dose 0.25 MG; Start 02/17/17 at 23:00 Tamsulosin HCl (Flomax) 0.4 mg DAILY@21 PO Last administered on 02/24/17 22: 06; Admin Dose 0.4 MG; Start 02/17/17 at 23:00 Zolpidem Tartrate (Ambien) 10 mg HS PRN PO INSOMNIA Last administered on 22:08; Admin Dose 10 MG; Start 02/17/17 at 23:15 Multivit/Ca Carb/ B Cmplx/FA/Prenat (Paulina-Chrissy) 1 tab DAILY PO Last administered on 02/25/17 08:31; Admin Dose 1 TAB; Start 02/18/17 at 09:00 Nicotine (Nicoderm 14 Mg/ 24hr) 1 patch DAILY TRANSDERM Last administered on 08:32; Admin Dose 1 PATCH; Start 02/18/17 at 09:00 Hydralazine HCl (Apresoline) 50 mg BID PO Last administered on 02/25/17 08:32 ; Admin Dose 50 MG; Start 02/17/17 at 23:00 Acetaminophen/ Hydrocodone Bitart ([place] (5/325)) 2 tab Q4H PRN PO PAIN Last administered on 02/19/17 08:38; Admin Dose 2 TAB; Start 02/17/17 at 23:30 Acetaminophen/ Hydrocodone Bitart (Lynn (5/325)) 1 tab Q4H PRN PO PAIN; Start 02/17/17 at 23:30 Isosorbide Mononitrate (Imdur) 60 mg DAILY PO Last administered on 02/25/17 08:32; Admin Dose 60 MG; Start 02/18/17 at 09:00 Fish Oil (Fish Oil) 1,000 mg BID PO Last administered on 02/25/17 08:31; Admin Dose 1,000 MG; Start 02/17/17 at 23:15 Docusate Sodium (Colace) 100 mg BID PO Last administered on 02/25/17 08:31; Admin Dose 100 MG; Start 02/17/17 at 23:15 Ergocalciferol (Drisdol) 50,000 unit Tu@09 PO Last administered on 02/23/17 09:29; Admin Dose 50,000 UNIT; Start 02/23/17 at 09:00 Famotidine (Pepcid) 20 mg DAILY PO Last administered on 02/25/17 08:31; Admin Dose 20 MG; Start 02/18/17 at 09:00 Febuxostat (Uloric) 40 mg DAILY PO Last administered on 02/25/17 08:32; Admin Dose 40 MG; Start 02/18/17 at 09:00 Acetaminophen (Tylenol Tab) 650 mg Q6H PRN PO PAIN AND OR ELEVATED TEMP; Start 02/17/17 at 23:15 Atorvastatin Calcium (Lipitor) 10 mg DAILY@21 PO Last administered on 22:05; Admin Dose 10 MG; Start 02/17/17 at 23:15 Bisacodyl (Dulcolax) 10 mg DAILY PRN PO CONSTIPATION; Start 02/17/17 at 23:30 Clonidine (Catapres) 0.1 mg TID PRN PO SBP ABOVE 160mmHg Last administered on 02/22/17 02:15; Admin Dose 0.1 MG; Start 02/17/17 at 23:30 Linagliptin (Tradjenta) 5 mg DAILY PO Last administered on 02/25/17 08:32; Admin Dose 5 MG; Start 02/18/17 at 14:36 Miscellaneous Information 1 ea NOTE XX ; Start 02/18/17 at 15:00 Glucose (Glutose) 15 gm Q15M PRN PO DECREASED GLUCOSE; Start 02/18/17 at 15:00 Glucose (Glutose) 22.5 gm Q15M PRN PO DECREASED GLUCOSE; Start 02/18/17 at 15: 00 Dextrose (D50w Syringe) 25 ml Q15M PRN IV DECREASED GLUCOSE; Start 02/18/17 at 15:00 Dextrose (D50w Syringe) 50 ml Q15M PRN IV DECREASED GLUCOSE; Start 02/18/17 at 15:00 Glucagon (Glucagen) 1 mg Q15M PRN IM DECREASED GLUCOSE; Start 02/18/17 at 15:00 Glucose (Glutose) 15 gm Q15M PRN BUCCAL DECREASED GLUCOSE; Start 02/18/17 at 15 :00 Nifedipine (Procardia Xl) 30 mg BID PO Last administered on 02/25/17 08:30; Admin Dose 30 MG; Start 02/18/17 at 21:00 Carvedilol (Coreg) 12.5 mg BID PO Last administered on 02/25/17 08:31; Admin Dose 12.5 MG; Start 02/22/17 at 21:00 Diagnostic Test (Pha) (Accu-Chek) 1 ea BID XX Last administered on 02/25/17 08:14; Admin Dose 1 EA; Start 02/22/17 at 21:00 Epoetin Keven (Epogen (Esrd)) 6,000 units MoWeFr@17 IV Last administered on 17:53; Admin Dose 6,000 UNITS; Start 02/22/17 at 17:00 Bethanechol Chloride (Urecholine) 10 mg TID PO Last administered on 02/25/17 08:31; Admin Dose 10 MG; Start 02/22/17 at 21:00 Assessment/Plan Chief Complaint/Hosp Course 1. End-stage renal disease. continue hd on qod schedule. assess daily for needs. all meds dosed ok. 2. Anemia. Monitor hemoglobin and hematocrit levels. Continue Epogen. 3. Mineral bone disorder. Continue to monitor calcium and phosphorus levels. 4. Congestive heart failure. Continue medical management. 5. Hypertension. Continue current blood pressure regimen. 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 7. Diabetes. Continue Accu-Cheks and insulin sliding scale. 8. Thrombocytopenia. Continue to monitor. Consider holding heparin. Problems: MARRY MADRIGAL MD Feb 25, 2017 11:55
--- NOTE | 2017-02-25 12:53 | CONS ---
Date/Time of Note Date/Time of Note DATE: 02/25/17 TIME: 12:52 Consult Date/Type/Reason Admit Date/Time Feb 17, 2017 at 20:40 Type of Consultation: neph Ordering [facility] Subject[facility] Improving Objective pulm-cta mod assist transfer mod assist ambulation few feet Vital Signs Date Time Temp Pulse Resp B/P Pulse Ox O2 Delivery O2 Flow Rate FiO2 02/25/17 07:30 99.0 78 20 145/67 95 02/24/17 02:00 Room Air Intake and Output 02/24/17 02/24/17 02/25/17 15:00 23:00 07:00 Intake Total 1300 ml 240 ml Output Total 550 ml 3300 ml 2200 ml Balance -550 ml -2000 ml -1960 ml Results/Medications Result Diagram: 02/22/1762402/22/17624 Results 24 hrs Laboratory Tests Test 02/24/17 21:59 02/25/17 08:10 Bedside Glucose 199 114 Medications Current Medications Polyethylene Glycol (Miralax) 17 gm BID PO Last administered on 02/23/17 09: 30; Admin Dose 17 GM; Start 02/17/17 at 23:00 Prasugrel (Effient) 10 mg DAILY PO Last administered on 02/25/17 08:31; Admin Dose 10 MG; Start 02/18/17 at 09:00 Ropinirole HCl (Requip) 0.25 mg HS PO Last administered on 02/24/17 22:06; Admin Dose 0.25 MG; Start 02/17/17 at 23:00 Tamsulosin HCl (Flomax) 0.4 mg DAILY@21 PO Last administered on 02/24/17 22: 06; Admin Dose 0.4 MG; Start 02/17/17 at 23:00 Zolpidem Tartrate (Ambien) 10 mg HS PRN PO INSOMNIA Last administered on 22:08; Admin Dose 10 MG; Start 02/17/17 at 23:15 Multivit/Ca Carb/ B Cmplx/FA/Prenat (Paulina-Chrissy) 1 tab DAILY PO Last administered on 02/25/17 08:31; Admin Dose 1 TAB; Start 02/18/17 at 09:00 Nicotine (Nicoderm 14 Mg/ 24hr) 1 patch DAILY TRANSDERM Last administered on 08:32; Admin Dose 1 PATCH; Start 02/18/17 at 09:00 Hydralazine HCl (Apresoline) 50 mg BID PO Last administered on 02/25/17 08:32 ; Admin Dose 50 MG; Start 02/17/17 at 23:00 Acetaminophen/ Hydrocodone Bitart ([place] (5/325)) 2 tab Q4H PRN PO PAIN Last administered on 02/19/17 08:38; Admin Dose 2 TAB; Start 02/17/17 at 23:30 Acetaminophen/ Hydrocodone Bitart ([place] (5/325)) 1 tab Q4H PRN PO PAIN; Start 02/17/17 at 23:30 Isosorbide Mononitrate (Imdur) 60 mg DAILY PO Last administered on 02/25/17 08:32; Admin Dose 60 MG; Start 02/18/17 at 09:00 Fish Oil (Fish Oil) 1,000 mg BID PO Last administered on 02/25/17 08:31; Admin Dose 1,000 MG; Start 02/17/17 at 23:15 Docusate Sodium (Colace) 100 mg BID PO Last administered on 02/25/17 08:31; Admin Dose 100 MG; Start 02/17/17 at 23:15 Ergocalciferol (Drisdol) 50,000 unit Tu@09 PO Last administered on 02/23/17 09:29; Admin Dose 50,000 UNIT; Start 02/23/17 at 09:00 Famotidine (Pepcid) 20 mg DAILY PO Last administered on 02/25/17 08:31; Admin Dose 20 MG; Start 02/18/17 at 09:00 Febuxostat (Uloric) 40 mg DAILY PO Last administered on 02/25/17 08:32; Admin Dose 40 MG; Start 02/18/17 at 09:00 Acetaminophen (Tylenol Tab) 650 mg Q6H PRN PO PAIN AND OR ELEVATED TEMP; Start 02/17/17 at 23:15 Atorvastatin Calcium (Lipitor) 10 mg DAILY@21 PO Last administered on 22:05; Admin Dose 10 MG; Start 02/17/17 at 23:15 Bisacodyl (Dulcolax) 10 mg DAILY PRN PO CONSTIPATION; Start 02/17/17 at 23:30 Clonidine (Catapres) 0.1 mg TID PRN PO SBP ABOVE 160mmHg Last administered on 02/22/17 02:15; Admin Dose 0.1 MG; Start 02/17/17 at 23:30 Linagliptin (Tradjenta) 5 mg DAILY PO Last administered on 02/25/17 08:32; Admin Dose 5 MG; Start 02/18/17 at 14:36 Miscellaneous Information 1 ea NOTE XX ; Start 02/18/17 at 15:00 Glucose (Glutose) 15 gm Q15M PRN PO DECREASED GLUCOSE; Start 02/18/17 at 15:00 Glucose (Glutose) 22.5 gm Q15M PRN PO DECREASED GLUCOSE; Start 02/18/17 at 15: 00 Dextrose (D50w Syringe) 25 ml Q15M PRN IV DECREASED GLUCOSE; Start 02/18/17 at 15:00 Dextrose (D50w Syringe) 50 ml Q15M PRN IV DECREASED GLUCOSE; Start 02/18/17 at 15:00 Glucagon (Glucagen) 1 mg Q15M PRN IM DECREASED GLUCOSE; Start 02/18/17 at 15:00 Glucose (Glutose) 15 gm Q15M PRN BUCCAL DECREASED GLUCOSE; Start 02/18/17 at 15 :00 Nifedipine (Procardia Xl) 30 mg BID PO Last administered on 02/25/17 08:30; Admin Dose 30 MG; Start 02/18/17 at 21:00 Carvedilol (Coreg) 12.5 mg BID PO Last administered on 02/25/17 08:31; Admin Dose 12.5 MG; Start 02/22/17 at 21:00 Diagnostic Test (Pha) (Accu-Chek) 1 ea BID XX Last administered on 02/25/17 08:14; Admin Dose 1 EA; Start 02/22/17 at 21:00 Epoetin Keven (Epogen (Esrd)) 6,000 units MoWeFr@17 IV Last administered on 17:53; Admin Dose 6,000 UNITS; Start 02/22/17 at 17:00 Bethanechol Chloride (Urecholine) 10 mg TID PO Last administered on 02/25/17 12:40; Admin Dose 10 MG; Start 02/22/17 at 21:00 Assessment/Plan Additional Assessment/Plan Rehab-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 Patient has started ambulation with PT, good gains. End-stage renal disease on hemodialysis. Urinary tract infection. Congestive heart failure. Hypertension. JESSICA ADAMS MD Feb 25, 2017 12:53
--- NOTE | 2017-02-25 13:24 | CONS ---
Date/Time of Note Date/Time of Note DATE: 02/25/17 TIME: 13:22 Assessment/Plan Assessment/Plan Chief Complaint/Hosp Course 81-year-old male, who was transferred to rehabilitation unit for further rehabilitation following an onset of lower extremity weakness. 1. 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 -Status post treatment with pulse dose steroids followed by IVIG. -Continue PT/OT -Follow-up with outpatient studies EMG/NCV to evaluate for possible demyelinating polyneuropathy such as CIDP 2. 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 Hypertension. Now with good control -Continue current antihypertensives. Will monitor blood pressure closely and will adjust as indicated. 4. End-stage renal disease, on hemodialysis. -Follow-up with nephrology recommendations. 5. Status post sepsis bacteremia with Multidrug resistant urinary tract infection. Repeat Urine CS negative. 6. Coronary artery disease. -Continue home medications. 7. Dyslipidemia. -Continue statin/fish oil. 8. Anemia of chronic kidney disease. -HH stable. Will monitor. 9. Type 2 diabetes mellitus. Latest A1c 4.9 with good glycemic control. -Stable. No need for insulin in-house. Continue Tradjenta. -Accu-Cheks twice daily and carbohydrate controlled diet. 10. Benign prostatic hypertrophy -Continue Flomax. 11. Urinary retention, likely secondary to neurogenic bladder. -urology evaluation appreciated. on Urecholine with in and out catheterization as needed. 12. Obesity. -Weight reduction advised 13. Nicotine abuse. -Cessation advised. Prophylaxis: Ambulation/SCDs Patient was seen in collaboration with . Problems: Consultation Date/Type/Reason Admit Date/Time Feb 17, 2017 at 20:40 Initial Consult Date 02/22/17 Type of Consultation: neph Referring Provider: MAURO SPENCER MD, [facility] 24 HR Interval Summary Free Text/Dictation No acute overnight episodes. Patient did not void overnight and required in and out catheterization this morning. He has been participating in physical therapy Exam/Review of Systems Vital Signs Vitals Vital Signs Date Time Temp Pulse Resp B/P Pulse Ox O2 Delivery O2 Flow Rate FiO2 02/25/17 07:30 99.0 78 20 145/67 95 02/24/17 02:00 Room Air Intake and Output 10/04/0202/24/17 02/25/17 15:00 23:00 07:00 Intake Total 1300 ml 240 ml Output Total 550 ml 3300 ml 2200 ml Balance -550 ml -2000 ml -1960 ml Exam General: Elderly male, not in any acute distress . HEENT: Normocephalic, Atraumatic, No laceration or hematoma; Eyes: PEERL, Conjunctiva clear, Anicteric sclera Neck: Supple without any lymphadenopathy, nontender, no JVD, no carotid bruits, trachea midline, no thyromegaly Cardiac: S1, S2 auscultated, regular rhythm and rate, no mumurs or gallop Pulmonary: Normal respiratory effort. Chest clear to auscultation bilaterally, no adventitious breath sounds GI: Abdomen normal to inspection. Soft, non tender, non- distended, no masses, no rebound tenderness or guarding. Bowel sounds active on all four quadrants Genitourinary: Deferred Extremities: With severe weakness to bilateral lower extremities. No cyanosis, clubbing, or edema. Pulses [2+] bilaterally. No focal weakness appreciated. Neurologic: Alert to person, place, time, and situation. Affect appropriate, intact sensation. Skin: Clean,dry, and intact. No ecchymosis, no rashes, or lesions Results Result Diagram: 02/22/1762402/22/17624 Results 24 hrs Laboratory Tests Test 02/24/17 21:59 02/25/17 08:10 Bedside Glucose 199 114 Medications Medications Current Medications Polyethylene Glycol (Miralax) 17 gm BID PO Last administered on 02/23/17 09: 30; Admin Dose 17 GM; Start 02/17/17 at 23:00 Prasugrel (Effient) 10 mg DAILY PO Last administered on 02/25/17 08:31; Admin Dose 10 MG; Start 02/18/17 at 09:00 Ropinirole HCl (Requip) 0.25 mg HS PO Last administered on 02/24/17 22:06; Admin Dose 0.25 MG; Start 02/17/17 at 23:00 Tamsulosin HCl (Flomax) 0.4 mg DAILY@21 PO Last administered on 02/24/17 22: 06; Admin Dose 0.4 MG; Start 02/17/17 at 23:00 Zolpidem Tartrate (Ambien) 10 mg HS PRN PO INSOMNIA Last administered on 22:08; Admin Dose 10 MG; Start 02/17/17 at 23:15 Multivit/Ca Carb/ B Cmplx/FA/Prenat (Paulina-Chrissy) 1 tab DAILY PO Last administered on 02/25/17 08:31; Admin Dose 1 TAB; Start 02/18/17 at 09:00 Nicotine (Nicoderm 14 Mg/ 24hr) 1 patch DAILY TRANSDERM Last administered on 08:32; Admin Dose 1 PATCH; Start 02/18/17 at 09:00 Hydralazine HCl (Apresoline) 50 mg BID PO Last administered on 02/25/17 08:32 ; Admin Dose 50 MG; Start 02/17/17 at 23:00 Acetaminophen/ Hydrocodone Bitart ([place] (5/325)) 2 tab Q4H PRN PO PAIN Last administered on 02/19/17 08:38; Admin Dose 2 TAB; Start 02/17/17 at 23:30 Acetaminophen/ Hydrocodone Bitart ([place] (5/325)) 1 tab Q4H PRN PO PAIN; Start 02/17/17 at 23:30 Isosorbide Mononitrate (Imdur) 60 mg DAILY PO Last administered on 02/25/17 08:32; Admin Dose 60 MG; Start 02/18/17 at 09:00 Fish Oil (Fish Oil) 1,000 mg BID PO Last administered on 02/25/17 08:31; Admin Dose 1,000 MG; Start 02/17/17 at 23:15 Docusate Sodium (Colace) 100 mg BID PO Last administered on 02/25/17 08:31; Admin Dose 100 MG; Start 02/17/17 at 23:15 Ergocalciferol (Drisdol) 50,000 unit Tu@09 PO Last administered on 02/23/17 09:29; Admin Dose 50,000 UNIT; Start 02/23/17 at 09:00 Famotidine (Pepcid) 20 mg DAILY PO Last administered on 02/25/17 08:31; Admin Dose 20 MG; Start 02/18/17 at 09:00 Febuxostat (Uloric) 40 mg DAILY PO Last administered on 02/25/17 08:32; Admin Dose 40 MG; Start 02/18/17 at 09:00 Acetaminophen (Tylenol Tab) 650 mg Q6H PRN PO PAIN AND OR ELEVATED TEMP; Start 02/17/17 at 23:15 Atorvastatin Calcium (Lipitor) 10 mg DAILY@21 PO Last administered on 22:05; Admin Dose 10 MG; Start 02/17/17 at 23:15 Bisacodyl (Dulcolax) 10 mg DAILY PRN PO CONSTIPATION; Start 02/17/17 at 23:30 Clonidine (Catapres) 0.1 mg TID PRN PO SBP ABOVE 160mmHg Last administered on 02/22/17 02:15; Admin Dose 0.1 MG; Start 02/17/17 at 23:30 Linagliptin (Tradjenta) 5 mg DAILY PO Last administered on 02/25/17 08:32; Admin Dose 5 MG; Start 02/18/17 at 14:36 Miscellaneous Information 1 ea NOTE XX ; Start 02/18/17 at 15:00 Glucose (Glutose) 15 gm Q15M PRN PO DECREASED GLUCOSE; Start 02/18/17 at 15:00 Glucose (Glutose) 22.5 gm Q15M PRN PO DECREASED GLUCOSE; Start 02/18/17 at 15: 00 Dextrose (D50w Syringe) 25 ml Q15M PRN IV DECREASED GLUCOSE; Start 02/18/17 at 15:00 Dextrose (D50w Syringe) 50 ml Q15M PRN IV DECREASED GLUCOSE; Start 02/18/17 at 15:00 Glucagon (Glucagen) 1 mg Q15M PRN IM DECREASED GLUCOSE; Start 02/18/17 at 15:00 Glucose (Glutose) 15 gm Q15M PRN BUCCAL DECREASED GLUCOSE; Start 02/18/17 at 15 :00 Nifedipine (Procardia Xl) 30 mg BID PO Last administered on 02/25/17 08:30; Admin Dose 30 MG; Start 02/18/17 at 21:00 Carvedilol (Coreg) 12.5 mg BID PO Last administered on 02/25/17 08:31; Admin Dose 12.5 MG; Start 02/22/17 at 21:00 Diagnostic Test (Pha) (Accu-Chek) 1 ea BID XX Last administered on 02/25/17 08:14; Admin Dose 1 EA; Start 02/22/17 at 21:00 Epoetin Keven (Epogen (Esrd)) 6,000 units MoWeFr@17 IV Last administered on 17:53; Admin Dose 6,000 UNITS; Start 02/22/17 at 17:00 Bethanechol Chloride (Urecholine) 10 mg TID PO Last administered on 02/25/17 12:40; Admin Dose 10 MG; Start 02/22/17 at 21:00 HEATH MAYBERRY NP Feb 25, 2017 13:24
[2017-02-25 19:48] VITALS: BP 144/64; RESP 18
[2017-02-25 20:00] VITALS: BP 138/64; PULSE 76; RESP 16
[2017-02-25] MEDS: ROPINIROLE 0.25 MG TAB PO SCH (21:00)
[2017-02-25] MEDS: ATORVASTATIN 10 MG TAB PO SCH (21:01)
[2017-02-25] MEDS: TAMSULOSIN (SR) 0.4 MG CAP PO SCH (21:02)
[2017-02-25] MEDS: ZOLPIDEM 5 MG TAB PO PRN (21:04)
[2017-02-26] VITALS (10 sets, daily range): BP systolic 104–154; BP diastolic 42–86; PULSE 68–88; RESP 16–20
[2017-02-26] MEDS: DOCUSATE SODIUM 100 MG CAP PO SCH ×2 (08:09→20:43)
[2017-02-26] MEDS: POLYETHYLENE GLYCOL 17 GM PACKET PO SCH ×2 (08:09→20:44)
[2017-02-26] MEDS: LINAGLIPTIN 5 MG TABLET PO SCH (08:09)
[2017-02-26] MEDS: FISH OIL 1,000 MG CAP PO SCH ×2 (08:09→20:43)
[2017-02-26] MEDS: FAMOTIDINE 20 MG TAB PO SCH (08:09)
[2017-02-26] MEDS: PRASUGREL HYDROCHLORIDE 10 MG TABLET PO SCH (08:09)
[2017-02-26] MEDS: SEVELAMER 800 MG TAB PO SCH ×3 (08:09→18:06)
[2017-02-26] MEDS: BETHANECHOL 10 MG TAB PO SCH ×3 (08:09→20:43)
[2017-02-26] MEDS: FEBUXOSTAT 40 MG TABLET PO SCH (08:09)
[2017-02-26] MEDS: NICOTINE (14 MG/24 HR) PATCH TRANSDERM SCH (08:10)
[2017-02-26] MEDS: BALSAM PERU/CASTOR OIL 60 GM TUBE TOP SCH ×2 (08:11→20:45)
[2017-02-26] MEDS: ACCU-CHEK XX SCH ×2 (08:11→21:32)
[2017-02-26] MEDS: MULTIVIT/CA CARB/B CMPLX/FA TAB PO SCH (08:12)
[2017-02-26] MEDS: ISOSORBIDE MONONITRATE(SR)60 MG TAB PO SCH (08:22)
[2017-02-26] MEDS: NIFEdipine (XL) 30 MG TAB PO SCH ×2 (08:22→20:44)
--- NOTE | 2017-02-26 08:40 | CONS ---
Date/Time of Note Date/Time of Note DATE: 02/26/17 TIME: 08:40 Consult Date/Type/Reason Admit Date/Time Feb 17, 2017 at 20:40 Type of Consultation: neph Ordering Provider: [facility] SPENCER [facility] Subjective Comfortable Objective pulm-cta mod transfer min wc mobility Vital Signs Date Time Temp Pulse Resp B/P Pulse Ox O2 Delivery O2 Flow Rate FiO2 02/26/17 07:30 98.4 64 20 154/75 95 02/26/17 03:00 Room Air Results/Medications Result Diagram: 02/22/17 0625 02/22/17 0625 Results 24 hrs Laboratory Tests Test 02/25/17 20:59 02/26/17 08:07 Bedside Glucose 122 104 Medications Current Medications Polyethylene Glycol (Miralax) 17 gm BID PO Last administered on 02/26/17 08: 09; Admin Dose 17 GM; Start 02/17/17 at 23:00 Prasugrel (Effient) 10 mg DAILY PO Last administered on 02/26/17 08:09; Admin Dose 10 MG; Start 02/18/17 at 09:00 Ropinirole HCl (Requip) 0.25 mg HS PO Last administered on 02/25/17 21:00; Admin Dose 0.25 MG; Start 02/17/17 at 23:00 Tamsulosin HCl (Flomax) 0.4 mg DAILY@21 PO Last administered on 02/25/17 21: 02; Admin Dose 0.4 MG; Start 02/17/17 at 23:00 Zolpidem Tartrate (Ambien) 10 mg HS PRN PO INSOMNIA Last administered on 21:04; Admin Dose 10 MG; Start 02/17/17 at 23:15 Multivit/Ca Carb/ B Cmplx/FA/Prenat (Paulina-Chrissy) 1 tab DAILY PO Last administered on 02/26/17 08:12; Admin Dose 1 TAB; Start 02/18/17 at 09:00 Nicotine (Nicoderm 14 Mg/ 24hr) 1 patch DAILY TRANSDERM Last administered on 08:10; Admin Dose 1 PATCH; Start 02/18/17 at 09:00 Hydralazine HCl (Apresoline) 50 mg BID PO Last administered on 02/26/17 08:22 ; Admin Dose 50 MG; Start 02/17/17 at 23:00 Acetaminophen/ Hydrocodone Bitart ([place] (5/325)) 2 tab Q4H PRN PO PAIN Last administered on 02/19/17 08:38; Admin Dose 2 TAB; Start 02/17/17 at 23:30 Acetaminophen/ Hydrocodone Bitart ([place] (5/325)) 1 tab Q4H PRN PO PAIN; Start 02/17/17 at 23:30 Isosorbide Mononitrate (Imdur) 60 mg DAILY PO Last administered on 02/26/17 08:22; Admin Dose 60 MG; Start 02/18/17 at 09:00 Fish Oil (Fish Oil) 1,000 mg BID PO Last administered on 02/26/17 08:09; Admin Dose 1,000 MG; Start 02/17/17 at 23:15 Docusate Sodium (Colace) 100 mg BID PO Last administered on 02/26/17 08:09; Admin Dose 100 MG; Start 02/17/17 at 23:15 Ergocalciferol (Drisdol) 50,000 unit Tu@09 PO Last administered on 02/23/17 09:29; Admin Dose 50,000 UNIT; Start 02/23/17 at 09:00 Famotidine (Pepcid) 20 mg DAILY PO Last administered on 02/26/17 08:09; Admin Dose 20 MG; Start 02/18/17 at 09:00 Febuxostat (Uloric) 40 mg DAILY PO Last administered on 02/26/17 08:09; Admin Dose 40 MG; Start 02/18/17 at 09:00 Acetaminophen (Tylenol Tab) 650 mg Q6H PRN PO PAIN AND OR ELEVATED TEMP; Start 02/17/17 at 23:15 Atorvastatin Calcium (Lipitor) 10 mg DAILY@21 PO Last administered on 21:01; Admin Dose 10 MG; Start 02/17/17 at 23:15 Bisacodyl (Dulcolax) 10 mg DAILY PRN PO CONSTIPATION; Start 02/17/17 at 23:30 Clonidine (Catapres) 0.1 mg TID PRN PO SBP ABOVE 160mmHg Last administered on 02/22/17 02:15; Admin Dose 0.1 MG; Start 02/17/17 at 23:30 Linagliptin (Tradjenta) 5 mg DAILY PO Last administered on 02/26/17 08:09; Admin Dose 5 MG; Start 02/18/17 at 14:36 Miscellaneous Information 1 ea NOTE XX ; Start 02/18/17 at 15:00 Glucose (Glutose) 15 gm Q15M PRN PO DECREASED GLUCOSE; Start 02/18/17 at 15:00 Glucose (Glutose) 22.5 gm Q15M PRN PO DECREASED GLUCOSE; Start 02/18/17 at 15: 00 Dextrose (D50w Syringe) 25 ml Q15M PRN IV DECREASED GLUCOSE; Start 02/18/17 at 15:00 Dextrose (D50w Syringe) 50 ml Q15M PRN IV DECREASED GLUCOSE; Start 02/18/17 at 15:00 Glucagon (Glucagen) 1 mg Q15M PRN IM DECREASED GLUCOSE; Start 02/18/17 at 15:00 Glucose (Glutose) 15 gm Q15M PRN BUCCAL DECREASED GLUCOSE; Start 02/18/17 at 15 :00 Nifedipine (Procardia Xl) 30 mg BID PO Last administered on 02/26/17 08:22; Admin Dose 30 MG; Start 02/18/17 at 21:00 Carvedilol (Coreg) 12.5 mg BID PO Last administered on 02/26/17 08:21; Admin Dose 12.5 MG; Start 02/22/17 at 21:00 Diagnostic Test (Pha) (Accu-Chek) 1 ea BID XX Last administered on 02/26/17 08:11; Admin Dose 1 EA; Start 02/22/17 at 21:00 Epoetin Keven (Epogen (Esrd)) 6,000 units MoWeFr@17 IV Last administered on 17:53; Admin Dose 6,000 UNITS; Start 02/22/17 at 17:00 Bethanechol Chloride (Urecholine) 10 mg TID PO Last administered on 02/26/17 08:09; Admin Dose 10 MG; Start 02/22/17 at 21:00 Assessment/Plan Additional Assessment/Plan Rehab-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 Urinary tract infection. Congestive heart failure. Hypertension. JESSICA ADAMS MD Feb 26, 2017 08:40
--- NOTE | 2017-02-26 09:12 | PN ---
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 The patient has been on also hemodialysis and scheduled for dialysis today afternoon. He was starte d on urecholine 10 mg 3 times a day and according to the nurses, the patient has been voiding. OBJECTIVE: VITAL SIGNS: His temperature is 98.4, pulse 64, respirations 20, blood pressure 154/75. ABDOMEN: Soft. The bladder does not seem to be distended. LABORATORY DATA: From 02/22/2017. His hemoglobin was 9.9, hematocrit 31.2. The urine culture is n o growth. The patient yesterday has been voiding according to the staff and the postvoid residual b y bladder scan has been 183, 265 and 312, 183 was the last time, so they did not have to do straight cath on him. PLAN: To continue to monitor his bladder volume and do a straight cath for him for a postvoid resid ual of 300 mL or if he does not void and the bladder scan shows 500 mL. Dictated By: VANE JOHNSON/CORA Conf#: [id number] DID#: [id number]
--- NOTE | 2017-02-26 11:29 | CONS ---
Date/Time of Note Date/Time of Note DATE: 02/26/17 TIME: 11:28 Consult Date/Type/Reason Admit Date/Time Feb 17, 2017 at 20:40 Initial Consult Date 02/22/17 Type of Consultation: neph Ordering Provider: [facility] SPENCER [facility], [facility] Subjective The patient tolerated hd today, No other events noted. No vitals. No fevers , chills, nausea, vomiting. OBJECTIVE: HEENT: Head is normocephalic. Pupils are reactive to light. NECK: Supple. HEART: Regular rate. LUNGS: Show diminished breath sounds at base. ABDOMEN: Soft, nontender to palpation. No rebound or guarding. EXTREMITIES: Negative for clubbing, cyanosis. No edema. DERMATOLOGIC: No rashes. MUSCULOSKELETAL: No joint effusions. NEUROLOGIC: No change in exam. Objective Vital Signs Date Time Temp Pulse Resp B/P Pulse Ox O2 Delivery O2 Flow Rate FiO2 02/26/17 07:30 98.4 64 20 154/75 95 02/26/17 03:00 Room Air Results/Medications Result Diagram: 02/22/1725 02/22/17 0625 Results 24 hrs Laboratory Tests Test 02/25/17 20:59 02/26/17 08:07 Bedside Glucose 122 104 Medications Current Medications Polyethylene Glycol (Miralax) 17 gm BID PO Last administered on 02/26/17 08: 09; Admin Dose 17 GM; Start 02/17/17 at 23:00 Prasugrel (Effient) 10 mg DAILY PO Last administered on 02/26/17 08:09; Admin Dose 10 MG; Start 02/18/17 at 09:00 Ropinirole HCl (Requip) 0.25 mg HS PO Last administered on 02/25/17 21:00; Admin Dose 0.25 MG; Start 02/17/17 at 23:00 Tamsulosin HCl (Flomax) 0.4 mg DAILY@21 PO Last administered on 02/25/17 21: 02; Admin Dose 0.4 MG; Start 02/17/17 at 23:00 Zolpidem Tartrate (Ambien) 10 mg HS PRN PO INSOMNIA Last administered on 21:04; Admin Dose 10 MG; Start 02/17/17 at 23:15 Multivit/Ca Carb/ B Cmplx/FA/Prenat (Paulina-Chrissy) 1 tab DAILY PO Last administered on 02/26/17 08:12; Admin Dose 1 TAB; Start 02/18/17 at 09:00 Nicotine (Nicoderm 14 Mg/ 24hr) 1 patch DAILY TRANSDERM Last administered on 08:10; Admin Dose 1 PATCH; Start 02/18/17 at 09:00 Hydralazine HCl (Apresoline) 50 mg BID PO Last administered on 02/26/17 08:22 ; Admin Dose 50 MG; Start 02/17/17 at 23:00 Acetaminophen/ Hydrocodone Bitart ([place] (5/325)) 2 tab Q4H PRN PO PAIN Last administered on 02/19/17 08:38; Admin Dose 2 TAB; Start 02/17/17 at 23:30 Acetaminophen/ Hydrocodone Bitart ([place] (5/325)) 1 tab Q4H PRN PO PAIN; Start 02/17/17 at 23:30 Isosorbide Mononitrate (Imdur) 60 mg DAILY PO Last administered on 02/26/17 08:22; Admin Dose 60 MG; Start 02/18/17 at 09:00 Fish Oil (Fish Oil) 1,000 mg BID PO Last administered on 02/26/17 08:09; Admin Dose 1,000 MG; Start 02/17/17 at 23:15 Docusate Sodium (Colace) 100 mg BID PO Last administered on 02/26/17 08:09; Admin Dose 100 MG; Start 02/17/17 at 23:15 Ergocalciferol (Drisdol) 50,000 unit Tu@09 PO Last administered on 02/23/17 09:29; Admin Dose 50,000 UNIT; Start 02/23/17 at 09:00 Famotidine (Pepcid) 20 mg DAILY PO Last administered on 02/26/17 08:09; Admin Dose 20 MG; Start 02/18/17 at 09:00 Febuxostat (Uloric) 40 mg DAILY PO Last administered on 02/26/17 08:09; Admin Dose 40 MG; Start 02/18/17 at 09:00 Acetaminophen (Tylenol Tab) 650 mg Q6H PRN PO PAIN AND OR ELEVATED TEMP; Start 02/17/17 at 23:15 Atorvastatin Calcium (Lipitor) 10 mg DAILY@21 PO Last administered on 21:01; Admin Dose 10 MG; Start 02/17/17 at 23:15 Bisacodyl (Dulcolax) 10 mg DAILY PRN PO CONSTIPATION; Start 02/17/17 at 23:30 Clonidine (Catapres) 0.1 mg TID PRN PO SBP ABOVE 160mmHg Last administered on 02/22/17 02:15; Admin Dose 0.1 MG; Start 02/17/17 at 23:30 Linagliptin (Tradjenta) 5 mg DAILY PO Last administered on 02/26/17 08:09; Admin Dose 5 MG; Start 02/18/17 at 14:36 Miscellaneous Information 1 ea NOTE XX ; Start 02/18/17 at 15:00 Glucose (Glutose) 15 gm Q15M PRN PO DECREASED GLUCOSE; Start 02/18/17 at 15:00 Glucose (Glutose) 22.5 gm Q15M PRN PO DECREASED GLUCOSE; Start 02/18/17 at 15: 00 Dextrose (D50w Syringe) 25 ml Q15M PRN IV DECREASED GLUCOSE; Start 02/18/17 at 15:00 Dextrose (D50w Syringe) 50 ml Q15M PRN IV DECREASED GLUCOSE; Start 02/18/17 at 15:00 Glucagon (Glucagen) 1 mg Q15M PRN IM DECREASED GLUCOSE; Start 02/18/17 at 15:00 Glucose (Glutose) 15 gm Q15M PRN BUCCAL DECREASED GLUCOSE; Start 02/18/17 at 15 :00 Nifedipine (Procardia Xl) 30 mg BID PO Last administered on 02/26/17 08:22; Admin Dose 30 MG; Start 02/18/17 at 21:00 Carvedilol (Coreg) 12.5 mg BID PO Last administered on 02/26/17 08:21; Admin Dose 12.5 MG; Start 02/22/17 at 21:00 Diagnostic Test (Pha) (Accu-Chek) 1 ea BID XX Last administered on 02/26/17 08:11; Admin Dose 1 EA; Start 02/22/17 at 21:00 Epoetin Keven (Epogen (Esrd)) 6,000 units MoWeFr@17 IV Last administered on 17:53; Admin Dose 6,000 UNITS; Start 02/22/17 at 17:00 Bethanechol Chloride (Urecholine) 10 mg TID PO Last administered on 02/26/17 08:09; Admin Dose 10 MG; Start 02/22/17 at 21:00 Assessment/Plan Chief Complaint/Hosp Course 1. End-stage renal disease. continue hd on qod schedule. assess daily for needs. all meds dosed ok. 2. Anemia. Monitor hemoglobin and hematocrit levels. Continue Epogen. 3. Mineral bone disorder. Continue to monitor calcium and phosphorus levels. 4. Congestive heart failure. Continue medical management. 5. Hypertension. Continue current blood pressure regimen. 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 7. Diabetes. Continue Accu-Cheks and insulin sliding scale. 8. Thrombocytopenia. Continue to monitor. Consider holding heparin. Problems: KANDICE RAYA MD Feb 26, 2017 11:29
--- NOTE | 2017-02-26 13:58 | CONS ---
Date/Time of Note Date/Time of Note DATE: 02/26/17 TIME: 13:55 Assessment/Plan Assessment/Plan Chief Complaint/Hosp Course 81-year-old male, who was transferred to rehabilitation unit for further rehabilitation following an onset of lower extremity weakness. 1. 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 -Status post treatment with pulse dose steroids followed by IVIG. -Continue PT/OT -Follow-up with outpatient studies EMG/NCV to evaluate for possible demyelinating polyneuropathy such as CIDP 2. 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 Hypertension. Now with good control -Continue current antihypertensives. Will monitor blood pressure closely and will adjust as indicated. 4. End-stage renal disease, on hemodialysis. -Follow-up with nephrology recommendations. 5. Status post sepsis bacteremia with Multidrug resistant urinary tract infection. Repeat Urine CS negative. 6. Coronary artery disease. -Continue home medications. 7. Dyslipidemia. -Continue statin/fish oil. 8. Anemia of chronic kidney disease. -HH stable. Will monitor. 9. Type 2 diabetes mellitus. Latest A1c 4.9 with good glycemic control. -Stable. No need for insulin in-house. Continue Tradjenta. -Accu-Cheks twice daily and carbohydrate controlled diet. 10. Benign prostatic hypertrophy -Continue Flomax. 11. Urinary retention, likely secondary to neurogenic bladder. Stable now. -urology evaluation appreciated. on Urecholine with in and out catheterization as needed. 12. Obesity. -Weight reduction advised 13. Nicotine abuse. -Cessation advised. Prophylaxis: Ambulation/SCDs Patient was seen in collaboration with . Problems: Consultation Date/Type/Reason Admit Date/Time Feb 17, 2017 at 20:40 Initial Consult Date 02/22/17 Type of Consultation: neph Referring Provider: MAURO SPENCER MD, [facility] HR Interval Summary Free Text/Dictation No acute overnight episodes. According to the patient, he has been voiding without any difficulties. Exam/Review of Systems Vital Signs Vitals Vital Signs Date Time Temp Pulse Resp B/P Pulse Ox O2 Delivery O2 Flow Rate FiO2 02/26/17 07:30 98.4 64 20 154/75 95 02/26/17 03:00 Room Air Exam General: Elderly male, not in any acute distress . HEENT: Normocephalic, Atraumatic, No laceration or hematoma; Eyes: PEERL, Conjunctiva clear, Anicteric sclera Neck: Supple without any lymphadenopathy, nontender, no JVD, no carotid bruits, trachea midline, no thyromegaly Cardiac: S1, S2 auscultated, regular rhythm and rate, no mumurs or gallop Pulmonary: Normal respiratory effort. Chest clear to auscultation bilaterally, no adventitious breath sounds GI: Abdomen normal to inspection. Soft, non tender, non- distended, no masses, no rebound tenderness or guarding. Bowel sounds active on all four quadrants Genitourinary: Deferred Extremities: With severe weakness to bilateral lower extremities. No cyanosis, clubbing, or edema. Pulses [2+] bilaterally. No focal weakness appreciated. Neurologic: Alert to person, place, time, and situation. Affect appropriate, intact sensation. Skin: Clean,dry, and intact. No ecchymosis, no rashes, or lesions Results Result Diagram: 02/22/1762402/22/17624 Results 24 hrs Laboratory Tests Test 02/25/17 20:59 02/26/17 08:07 02/26/17 12:24 Bedside Glucose 122 104 110 Medications Medications Current Medications Polyethylene Glycol (Miralax) 17 gm BID PO Last administered on 02/26/17 08: 09; Admin Dose 17 GM; Start 02/17/17 at 23:00 Prasugrel (Effient) 10 mg DAILY PO Last administered on 02/26/17 08:09; Admin Dose 10 MG; Start 02/18/17 at 09:00 Ropinirole HCl (Requip) 0.25 mg HS PO Last administered on 02/25/17 21:00; Admin Dose 0.25 MG; Start 02/17/17 at 23:00 Tamsulosin HCl (Flomax) 0.4 mg DAILY@21 PO Last administered on 02/25/17 21: 02; Admin Dose 0.4 MG; Start 02/17/17 at 23:00 Zolpidem Tartrate (Ambien) 10 mg HS PRN PO INSOMNIA Last administered on 21:04; Admin Dose 10 MG; Start 02/17/17 at 23:15 Multivit/Ca Carb/ B Cmplx/FA/Prenat (Paulina-Chrissy) 1 tab DAILY PO Last administered on 02/26/17 08:12; Admin Dose 1 TAB; Start 02/18/17 at 09:00 Nicotine (Nicoderm 14 Mg/ 24hr) 1 patch DAILY TRANSDERM Last administered on 08:10; Admin Dose 1 PATCH; Start 02/18/17 at 09:00 Hydralazine HCl (Apresoline) 50 mg BID PO Last administered on 02/26/17 08:22 ; Admin Dose 50 MG; Start 02/17/17 at 23:00 Acetaminophen/ Hydrocodone Bitart ([place] (5/325)) 2 tab Q4H PRN PO PAIN Last administered on 02/19/17 08:38; Admin Dose 2 TAB; Start 02/17/17 at 23:30 Acetaminophen/ Hydrocodone Bitart ([place] (5/325)) 1 tab Q4H PRN PO PAIN; Start 02/17/17 at 23:30 Isosorbide Mononitrate (Imdur) 60 mg DAILY PO Last administered on 02/26/17 08:22; Admin Dose 60 MG; Start 02/18/17 at 09:00 Fish Oil (Fish Oil) 1,000 mg BID PO Last administered on 02/26/17 08:09; Admin Dose 1,000 MG; Start 02/17/17 at 23:15 Docusate Sodium (Colace) 100 mg BID PO Last administered on 02/26/17 08:09; Admin Dose 100 MG; Start 02/17/17 at 23:15 Ergocalciferol (Drisdol) 50,000 unit Tu@09 PO Last administered on 02/23/17 09:29; Admin Dose 50,000 UNIT; Start 02/23/17 at 09:00 Famotidine (Pepcid) 20 mg DAILY PO Last administered on 02/26/17 08:09; Admin Dose 20 MG; Start 02/18/17 at 09:00 Febuxostat (Uloric) 40 mg DAILY PO Last administered on 02/26/17 08:09; Admin Dose 40 MG; Start 02/18/17 at 09:00 Acetaminophen (Tylenol Tab) 650 mg Q6H PRN PO PAIN AND OR ELEVATED TEMP; Start 02/17/17 at 23:15 Atorvastatin Calcium (Lipitor) 10 mg DAILY@21 PO Last administered on 21:01; Admin Dose 10 MG; Start 02/17/17 at 23:15 Bisacodyl (Dulcolax) 10 mg DAILY PRN PO CONSTIPATION; Start 02/17/17 at 23:30 Clonidine (Catapres) 0.1 mg TID PRN PO SBP ABOVE 160mmHg Last administered on 02/22/17 02:15; Admin Dose 0.1 MG; Start 02/17/17 at 23:30 Linagliptin (Tradjenta) 5 mg DAILY PO Last administered on 02/26/17 08:09; Admin Dose 5 MG; Start 02/18/17 at 14:36 Miscellaneous Information 1 ea NOTE XX ; Start 02/18/17 at 15:00 Glucose (Glutose) 15 gm Q15M PRN PO DECREASED GLUCOSE; Start 02/18/17 at 15:00 Glucose (Glutose) 22.5 gm Q15M PRN PO DECREASED GLUCOSE; Start 02/18/17 at 15: 00 Dextrose (D50w Syringe) 25 ml Q15M PRN IV DECREASED GLUCOSE; Start 02/18/17 at 15:00 Dextrose (D50w Syringe) 50 ml Q15M PRN IV DECREASED GLUCOSE; Start 02/18/17 at 15:00 Glucagon (Glucagen) 1 mg Q15M PRN IM DECREASED GLUCOSE; Start 02/18/17 at 15:00 Glucose (Glutose) 15 gm Q15M PRN BUCCAL DECREASED GLUCOSE; Start 02/18/17 at 15 :00 Nifedipine (Procardia Xl) 30 mg BID PO Last administered on 02/26/17 08:22; Admin Dose 30 MG; Start 02/18/17 at 21:00 Carvedilol (Coreg) 12.5 mg BID PO Last administered on 02/26/17 08:21; Admin Dose 12.5 MG; Start 02/22/17 at 21:00 Diagnostic Test (Pha) (Accu-Chek) 1 ea BID XX Last administered on 02/26/17 08:11; Admin Dose 1 EA; Start 02/22/17 at 21:00 Epoetin Keven (Epogen (Esrd)) 6,000 units MoWeFr@17 IV Last administered on 17:53; Admin Dose 6,000 UNITS; Start 02/22/17 at 17:00 Bethanechol Chloride (Urecholine) 10 mg TID PO Last administered on 02/26/17t 08:09; Admin Dose 10 MG; Start 02/22/17 at 21:00 HEATH MAYBERRY NP Feb 26, 2017 13:58
[2017-02-26] MEDS: EPOETIN 3000 UNITS/1 ML INJ (ESRD) IV SCH (15:24)
[2017-02-26] MEDS: TAMSULOSIN (SR) 0.4 MG CAP PO SCH (20:43)
[2017-02-26] MEDS: ROPINIROLE 0.25 MG TAB PO SCH (20:43)
[2017-02-26] MEDS: ATORVASTATIN 10 MG TAB PO SCH (20:43)
[2017-02-26] MEDS: ZOLPIDEM 5 MG TAB PO PRN (22:01)
[2017-02-27] VITALS (7 sets, daily range): BP systolic 114–158; BP diastolic 47–65; PULSE 64–78; RESP 16–19
[2017-02-27] MEDS: NIFEdipine (XL) 30 MG TAB PO SCH ×3 (09:00→20:35)
[2017-02-27] MEDS: ISOSORBIDE MONONITRATE(SR)60 MG TAB PO SCH ×2 (09:00→12:43)
[2017-02-27] MEDS: POLYETHYLENE GLYCOL 17 GM PACKET PO SCH ×2 (09:00→20:35)
[2017-02-27] MEDS: DOCUSATE SODIUM 100 MG CAP PO SCH ×2 (09:00→20:36)
[2017-02-27] MEDS: FEBUXOSTAT 40 MG TABLET PO SCH (09:06)
[2017-02-27] MEDS: BETHANECHOL 10 MG TAB PO SCH ×3 (09:06→20:34)
[2017-02-27] MEDS: SEVELAMER 800 MG TAB PO SCH ×3 (09:06→17:16)
[2017-02-27] MEDS: FISH OIL 1,000 MG CAP PO SCH ×2 (09:06→20:33)
[2017-02-27] MEDS: FAMOTIDINE 20 MG TAB PO SCH (09:06)
[2017-02-27] MEDS: PRASUGREL HYDROCHLORIDE 10 MG TABLET PO SCH (09:07)
[2017-02-27] MEDS: LINAGLIPTIN 5 MG TABLET PO SCH (09:07)
[2017-02-27] MEDS: MULTIVIT/CA CARB/B CMPLX/FA TAB PO SCH (09:07)
[2017-02-27] MEDS: BALSAM PERU/CASTOR OIL 60 GM TUBE TOP SCH ×2 (09:09→20:35)
[2017-02-27] MEDS: NICOTINE (14 MG/24 HR) PATCH TRANSDERM SCH (09:09)
--- NOTE | 2017-02-27 09:16 | CONS ---
Date/Time of Note Date/Time of Note DATE: 02/27/17 TIME: 09:13 Consult Date/Type/Reason Admit Date/Time Feb 17, 2017 at 20:40 Initial Consult Date 02/22/17 Type of Consultation: neph Ordering Provider: [facility] SPENCER [facility], [facility] Subjective The patient tolerated hd yesterday - 2liters, No other events noted. No vitals. No fevers, chills, nausea, vomiting. OBJECTIVE: HEENT: Head is normocephalic. Pupils are reactive to light. NECK: Supple. HEART: Regular rate. LUNGS: Show diminished breath sounds at base. ABDOMEN: Soft, nontender to palpation. No rebound or guarding. EXTREMITIES: Negative for clubbing, cyanosis. No edema. DERMATOLOGIC: No rashes. MUSCULOSKELETAL: No joint effusions. NEUROLOGIC: No change in exam. Objective Vital Signs Date Time Temp Pulse Resp B/P Pulse Ox O2 Delivery O2 Flow Rate FiO2 02/27/17 09:13 70 16 118/47 97 Room Air 02/27/17 08:01 98.3 Intake and Output 02/26/17 02/26/17 02/27/17 15:00 23:00 07:00 Intake Total 900 ml 680 ml Output Total 2500 ml Balance -1600 ml 680 ml Results/Medications Results 24 hrs Laboratory Tests Test 02/26/17 12:24 02/26/17 17:22 02/26/17 20:50 Bedside Glucose 110 94 115 Medications Current Medications Polyethylene Glycol (Miralax) 17 gm BID PO Last administered on 02/26/17 20: 44; Admin Dose 17 GM; Start 02/17/17 at 23:00 Prasugrel (Effient) 10 mg DAILY PO Last administered on 02/27/17 09:07; Admin Dose 10 MG; Start 02/18/17 at 09:00 Ropinirole HCl (Requip) 0.25 mg HS PO Last administered on 02/26/17 20:43; Admin Dose 0.25 MG; Start 02/17/17 at 23:00 Tamsulosin HCl (Flomax) 0.4 mg DAILY@21 PO Last administered on 02/26/17 20: 43; Admin Dose 0.4 MG; Start 02/17/17 at 23:00 Zolpidem Tartrate (Ambien) 10 mg HS PRN PO INSOMNIA Last administered on 22:01; Admin Dose 10 MG; Start 02/17/17 at 23:15 Multivit/Ca Carb/ B Cmplx/FA/Prenat (Paulina-Chrissy) 1 tab DAILY PO Last administered on 02/27/17 09:07; Admin Dose 1 TAB; Start 02/18/17 at 09:00 Nicotine (Nicoderm 14 Mg/ 24hr) 1 patch DAILY TRANSDERM Last administered on 09:09; Admin Dose 1 PATCH; Start 02/18/17 at 09:00 Hydralazine HCl (Apresoline) 50 mg BID PO Last administered on 02/26/17 20:44 ; Admin Dose 50 MG; Start 02/17/17 at 23:00 Acetaminophen/ Hydrocodone Bitart ([place] (5/325)) 2 tab Q4H PRN PO PAIN Last administered on 02/19/17 08:38; Admin Dose 2 TAB; Start 02/17/17 at 23:30 Acetaminophen/ Hydrocodone Bitart ([place] (5/325)) 1 tab Q4H PRN PO PAIN; Start 02/17/17 at 23:30 Isosorbide Mononitrate (Imdur) 60 mg DAILY PO Last administered on 02/26/17 08:22; Admin Dose 60 MG; Start 02/18/17 at 09:00 Fish Oil (Fish Oil) 1,000 mg BID PO Last administered on 02/27/17 09:06; Admin Dose 1,000 MG; Start 02/17/17 at 23:15 Docusate Sodium (Colace) 100 mg BID PO Last administered on 02/26/17 20:43; Admin Dose 100 MG; Start 02/17/17 at 23:15 Ergocalciferol (Drisdol) 50,000 unit Tu@09 PO Last administered on 02/23/17 09:29; Admin Dose 50,000 UNIT; Start 02/23/17 at 09:00 Famotidine (Pepcid) 20 mg DAILY PO Last administered on 02/27/17 09:06; Admin Dose 20 MG; Start 02/18/17 at 09:00 Febuxostat (Uloric) 40 mg DAILY PO Last administered on 02/27/17 09:06; Admin Dose 40 MG; Start 02/18/17 at 09:00 Acetaminophen (Tylenol Tab) 650 mg Q6H PRN PO PAIN AND OR ELEVATED TEMP; Start 02/17/17 at 23:15 Atorvastatin Calcium (Lipitor) 10 mg DAILY@21 PO Last administered on 20:43; Admin Dose 10 MG; Start 02/17/17 at 23:15 Bisacodyl (Dulcolax) 10 mg DAILY PRN PO CONSTIPATION; Start 02/17/17 at 23:30 Clonidine (Catapres) 0.1 mg TID PRN PO SBP ABOVE 160mmHg Last administered on 02/22/17 02:15; Admin Dose 0.1 MG; Start 02/17/17 at 23:30 Linagliptin (Tradjenta) 5 mg DAILY PO Last administered on 02/27/17 09:07; Admin Dose 5 MG; Start 02/18/17 at 14:36 Miscellaneous Information 1 ea NOTE XX ; Start 02/18/17 at 15:00 Glucose (Glutose) 15 gm Q15M PRN PO DECREASED GLUCOSE; Start 02/18/17 at 15:00 Glucose (Glutose) 22.5 gm Q15M PRN PO DECREASED GLUCOSE; Start 02/18/17 at 15: 00 Dextrose (D50w Syringe) 25 ml Q15M PRN IV DECREASED GLUCOSE; Start 02/18/17 at 15:00 Dextrose (D50w Syringe) 50 ml Q15M PRN IV DECREASED GLUCOSE; Start 02/18/17 at 15:00 Glucagon (Glucagen) 1 mg Q15M PRN IM DECREASED GLUCOSE; Start 02/18/17 at 15:00 Glucose (Glutose) 15 gm Q15M PRN BUCCAL DECREASED GLUCOSE; Start 02/18/17 at 15 :00 Nifedipine (Procardia Xl) 30 mg BID PO Last administered on 02/26/17 20:44; Admin Dose 30 MG; Start 02/18/17 at 21:00 Carvedilol (Coreg) 12.5 mg BID PO Last administered on 02/27/17 09:08; Admin Dose 12.5 MG; Start 02/22/17 at 21:00 Diagnostic Test (Pha) (Accu-Chek) 1 ea BID XX Last administered on 02/26/17 21:32; Admin Dose 1 EA; Start 02/22/17 at 21:00 Epoetin Keven (Epogen (Esrd)) 6,000 units MoWeFr@17 IV Last administered on 15:24; Admin Dose 6,000 UNITS; Start 02/22/17 at 17:00 Bethanechol Chloride (Urecholine) 10 mg TID PO Last administered on 02/27/17 09:06; Admin Dose 10 MG; Start 02/22/17 at 21:00 Assessment/Plan Chief Complaint/Hosp Course 1. End-stage renal disease. continue hd on qod schedule. assess daily for needs. all meds dosed ok. 2. Anemia. Monitor hemoglobin and hematocrit levels. Continue Epogen. 3. Mineral bone disorder. Continue to monitor calcium and phosphorus levels. 4. Congestive heart failure. Continue medical management. 5. Hypertension. Continue current blood pressure regimen. 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 7. Diabetes. Continue Accu-Cheks and insulin sliding scale. 8. Thrombocytopenia. Continue to monitor. Consider holding heparin. Problems: KANDICE RAYA MD Feb 27, 2017 09:16
[2017-02-27] MEDS: ACCU-CHEK XX SCH ×2 (09:57→20:36)
--- NOTE | 2017-02-27 11:11 | PN ---
Date/Time of Note Date/Time of Note DATE: 02/27/17 TIME: 11:10 Assessment/Plan VTE Prophylaxis VTE Prophylaxis Intervention: ambulation Lines/Catheters IV Catheter Type (from [facility]): [facility] Urinary Cath still in place: No Assessment/Plan Chief Complaint/Hosp Course 81-year-old male, who was transferred to rehabilitation unit for further rehabilitation following an onset of lower extremity weakness. 1. 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 -Status post treatment with pulse dose steroids followed by IVIG. -Continue PT/OT -Follow-up with outpatient studies EMG/NCV to evaluate for possible demyelinating polyneuropathy such as CIDP 2. 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 Hypertension. Now with good control -Continue current antihypertensives. Will monitor blood pressure closely and will adjust as indicated. 4. End-stage renal disease, on hemodialysis. -Follow-up with nephrology recommendations. 5. Status post sepsis bacteremia with Multidrug resistant urinary tract infection. Repeat Urine CS negative. 6. Coronary artery disease. -Continue home medications. 7. Dyslipidemia. -Continue statin/fish oil. 8. Anemia of chronic kidney disease. -HH stable. Will monitor. -Also obtain B12,folate and iron panel. 9. Type 2 diabetes mellitus. Latest A1c 4.9 with good glycemic control. -Stable. No need for insulin in-house. Continue Tradjenta. -Accu-Cheks twice daily and carbohydrate controlled diet. 10. Benign prostatic hypertrophy -Continue Flomax. 11. Urinary retention, likely secondary to neurogenic bladder. Stable now. -urology evaluation appreciated. on Urecholine with in and out catheterization as needed. 12. Obesity. -Weight reduction advised 13. Nicotine abuse. -Cessation advised. Prophylaxis: Ambulation/SCDs Patient was seen in collaboration with . Problems: Subjective 24 Hr Interval Summary Free Text/Dictation No acute overnight episodes.Participates in PT. Exam/Review of Systems Vital Signs Vitals Vital Signs Date Time Temp Pulse Resp B/P Pulse Ox O2 Delivery O2 Flow Rate FiO2 02/27/17 09:13 70 16 118/47 97 Room Air 02/27/17 08:01 98.3 Intake and Output 02/26/17 02/26/17 02/27/17 15:00 23:00 07:00 Intake Total 900 ml 680 ml Output Total 2500 ml Balance -1600 ml 680 ml Exam General: Elderly male, not in any acute distress . HEENT: Normocephalic, Atraumatic, No laceration or hematoma; Eyes: PEERL, Conjunctiva clear, Anicteric sclera Neck: Supple without any lymphadenopathy, nontender, no JVD, no carotid bruits, trachea midline, no thyromegaly Cardiac: S1, S2 auscultated, regular rhythm and rate, no mumurs or gallop Pulmonary: Normal respiratory effort. Chest clear to auscultation bilaterally, no adventitious breath sounds GI: Abdomen normal to inspection. Soft, non tender, non- distended, no masses, no rebound tenderness or guarding. Bowel sounds active on all four quadrants Genitourinary: Deferred Extremities: With severe weakness to bilateral lower extremities. No cyanosis, clubbing, or edema. Pulses [2+] bilaterally. No focal weakness appreciated. Neurologic: Alert to person, place, time, and situation. Affect appropriate, intact sensation. Skin: Clean,dry, and intact. No ecchymosis, no rashes, or lesions Results Results 24 hrs Laboratory Tests Test 02/26/17 12:24 02/26/17 17:22 02/26/17 20:50 02/27/17 09:20 Bedside Glucose 110 94 115 111 Medications Medications Current Medications Polyethylene Glycol (Miralax) 17 gm BID PO Last administered on 02/26/17 20: 44; Admin Dose 17 GM; Start 02/17/17 at 23:00 Prasugrel (Effient) 10 mg DAILY PO Last administered on 02/27/17 09:07; Admin Dose 10 MG; Start 02/18/17 at 09:00 Ropinirole HCl (Requip) 0.25 mg HS PO Last administered on 02/26/17 20:43; Admin Dose 0.25 MG; Start 02/17/17 at 23:00 Tamsulosin HCl (Flomax) 0.4 mg DAILY@21 PO Last administered on 02/26/17 20: 43; Admin Dose 0.4 MG; Start 02/17/17 at 23:00 Zolpidem Tartrate (Ambien) 10 mg HS PRN PO INSOMNIA Last administered on 22:01; Admin Dose 10 MG; Start 02/17/17 at 23:15 Multivit/Ca Carb/ B Cmplx/FA/Prenat (Paulina-Chrissy) 1 tab DAILY PO Last administered on 02/27/17 09:07; Admin Dose 1 TAB; Start 02/18/17 at 09:00 Nicotine (Nicoderm 14 Mg/ 24hr) 1 patch DAILY TRANSDERM Last administered on 09:09; Admin Dose 1 PATCH; Start 02/18/17 at 09:00 Hydralazine HCl (Apresoline) 50 mg BID PO Last administered on 02/26/17 20:44 ; Admin Dose 50 MG; Start 02/17/17 at 23:00 Acetaminophen/ Hydrocodone Bitart ([place] (5/325)) 2 tab Q4H PRN PO PAIN Last administered on 02/19/17 08:38; Admin Dose 2 TAB; Start 02/17/17 at 23:30 Acetaminophen/ Hydrocodone Bitart ([place] (5/325)) 1 tab Q4H PRN PO PAIN; Start 02/17/17 at 23:30 Isosorbide Mononitrate (Imdur) 60 mg DAILY PO Last administered on 02/26/17 08:22; Admin Dose 60 MG; Start 02/18/17 at 09:00 Fish Oil (Fish Oil) 1,000 mg BID PO Last administered on 02/27/17 09:06; Admin Dose 1,000 MG; Start 02/17/17 at 23:15 Docusate Sodium (Colace) 100 mg BID PO Last administered on 02/26/17 20:43; Admin Dose 100 MG; Start 02/17/17 at 23:15 Ergocalciferol (Drisdol) 50,000 unit Tu@09 PO Last administered on 02/23/17 09:29; Admin Dose 50,000 UNIT; Start 02/23/17 at 09:00 Famotidine (Pepcid) 20 mg DAILY PO Last administered on 02/27/17 09:06; Admin Dose 20 MG; Start 02/18/17 at 09:00 Febuxostat (Uloric) 40 mg DAILY PO Last administered on 02/27/17 09:06; Admin Dose 40 MG; Start 02/18/17 at 09:00 Acetaminophen (Tylenol Tab) 650 mg Q6H PRN PO PAIN AND OR ELEVATED TEMP; Start 02/17/17 at 23:15 Atorvastatin Calcium (Lipitor) 10 mg DAILY@21 PO Last administered on 20:43; Admin Dose 10 MG; Start 02/17/17 at 23:15 Bisacodyl (Dulcolax) 10 mg DAILY PRN PO CONSTIPATION; Start 02/17/17 at 23:30 Clonidine (Catapres) 0.1 mg TID PRN PO SBP ABOVE 160mmHg Last administered on 02/22/17 02:15; Admin Dose 0.1 MG; Start 02/17/17 at 23:30 Linagliptin (Tradjenta) 5 mg DAILY PO Last administered on 02/27/17 09:07; Admin Dose 5 MG; Start 02/18/17 at 14:36 Miscellaneous Information 1 ea NOTE XX ; Start 02/18/17 at 15:00 Glucose (Glutose) 15 gm Q15M PRN PO DECREASED GLUCOSE; Start 02/18/17 at 15:00 Glucose (Glutose) 22.5 gm Q15M PRN PO DECREASED GLUCOSE; Start 02/18/17 at 15: 00 Dextrose (D50w Syringe) 25 ml Q15M PRN IV DECREASED GLUCOSE; Start 02/18/17 at 15:00 Dextrose (D50w Syringe) 50 ml Q15M PRN IV DECREASED GLUCOSE; Start 02/18/17 at 15:00 Glucagon (Glucagen) 1 mg Q15M PRN IM DECREASED GLUCOSE; Start 02/18/17 at 15:00 Glucose (Glutose) 15 gm Q15M PRN BUCCAL DECREASED GLUCOSE; Start 02/18/17 at 15 :00 Nifedipine (Procardia Xl) 30 mg BID PO Last administered on 02/26/17 20:44; Admin Dose 30 MG; Start 02/18/17 at 21:00 Carvedilol (Coreg) 12.5 mg BID PO Last administered on 02/27/17 09:08; Admin Dose 12.5 MG; Start 02/22/17 at 21:00 Diagnostic Test (Pha) (Accu-Chek) 1 ea BID XX Last administered on 02/27/17 09:57; Admin Dose 1 EA; Start 02/22/17 at 21:00 Epoetin Keven (Epogen (Esrd)) 6,000 units MoWeFr@17 IV Last administered on 15:24; Admin Dose 6,000 UNITS; Start 02/22/17 at 17:00 Bethanechol Chloride (Urecholine) 10 mg TID PO Last administered on 02/27/17 09:06; Admin Dose 10 MG; Start 02/22/17 at 21:00 HEATH MAYBERRY NP Feb 27, 2017 11:11
--- NOTE | 2017-02-27 14:40 | PN ---
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 Patient is on 10 mg of Urecholine 3 times a day. He is voiding and the towels in bed and the postvoid residual is ranging between 163 and 195 mL therefore no need for straight catheterization Problems: Subjective 24 Hr Interval Summary Constitutional: no complaints Eyes: no complaints ENT: no complaints Respiratory: no complaints Cardiovascular: no complaints Gastrointestinal: no complaints Genitourinary: other (He urinates in the towels and in bed, does not use the urinal) Musculoskeletal: no complaints Skin: no complaints Neurologic: no complaints Endocrine: no complaints Exam/Review of Systems Vital Signs Vitals Vital Signs Date Time Temp Pulse Resp B/P Pulse Ox O2 Delivery O2 Flow Rate FiO2 02/27/17 12:44 64 16 158/65 95 Room Air 02/27/17 08:01 98.3 Intake and Output 02/26/17 02/26/17 02/27/17 15:00 23:00 07:00 Intake Total 900 ml 680 ml Output Total 2500 ml Balance -1600 ml 680 ml Exam Constitutional: alert Psych: no complaints Head: normocephalic Eyes: nl conjunctiva ENMT: nl external ears & nose Neck: supple Respiratory: normal air movement Cardiovascular: No edema Gastrointestinal: soft Genitourinary - Male: other (He had dialysis yesterday, has been voiding and the bladder scan showing a postvoid residual ranging between 163 295 mL therefore no straight catheterization has been done) Extremities: No calf tenderness, No edema Results Results 24 hrs Laboratory Tests Test 02/26/17 17:22 02/26/17 20:50 02/27/17 09:20 Bedside Glucose 94 115 111 Medications Medications Current Medications Polyethylene Glycol (Miralax) 17 gm BID PO Last administered on 02/26/17 20: 44; Admin Dose 17 GM; Start 02/17/17 at 23:00 Prasugrel (Effient) 10 mg DAILY PO Last administered on 02/27/17 09:07; Admin Dose 10 MG; Start 02/18/17 at 09:00 Ropinirole HCl (Requip) 0.25 mg HS PO Last administered on 02/26/17 20:43; Admin Dose 0.25 MG; Start 02/17/17 at 23:00 Tamsulosin HCl (Flomax) 0.4 mg DAILY@21 PO Last administered on 02/26/17 20: 43; Admin Dose 0.4 MG; Start 02/17/17 at 23:00 Zolpidem Tartrate (Ambien) 10 mg HS PRN PO INSOMNIA Last administered on 22:01; Admin Dose 10 MG; Start 02/17/17 at 23:15 Multivit/Ca Carb/ B Cmplx/FA/Prenat (Paulina-Chrissy) 1 tab DAILY PO Last administered on 02/27/17 09:07; Admin Dose 1 TAB; Start 02/18/17 at 09:00 Nicotine (Nicoderm 14 Mg/ 24hr) 1 patch DAILY TRANSDERM Last administered on 09:09; Admin Dose 1 PATCH; Start 02/18/17 at 09:00 Hydralazine HCl (Apresoline) 50 mg BID PO Last administered on 02/26/17 20:44 ; Admin Dose 50 MG; Start 02/17/17 at 23:00 Acetaminophen/ Hydrocodone Bitart ([place] (5/325)) 2 tab Q4H PRN PO PAIN Last administered on 02/19/17 08:38; Admin Dose 2 TAB; Start 02/17/17 at 23:30 Acetaminophen/ Hydrocodone Bitart ([place] (5/325)) 1 tab Q4H PRN PO PAIN; Start 02/17/17 at 23:30 Isosorbide Mononitrate (Imdur) 60 mg DAILY PO Last administered on 02/27/17 12:43; Admin Dose 60 MG; Start 02/18/17 at 09:00 Fish Oil (Fish Oil) 1,000 mg BID PO Last administered on 02/27/17 09:06; Admin Dose 1,000 MG; Start 02/17/17 at 23:15 Docusate Sodium (Colace) 100 mg BID PO Last administered on 02/26/17 20:43; Admin Dose 100 MG; Start 02/17/17 at 23:15 Ergocalciferol (Drisdol) 50,000 unit Tu@09 PO Last administered on 02/23/17 09:29; Admin Dose 50,000 UNIT; Start 02/23/17 at 09:00 Famotidine (Pepcid) 20 mg DAILY PO Last administered on 02/27/17 09:06; Admin Dose 20 MG; Start 02/18/17 at 09:00 Febuxostat (Uloric) 40 mg DAILY PO Last administered on 02/27/17 09:06; Admin Dose 40 MG; Start 02/18/17 at 09:00 Acetaminophen (Tylenol Tab) 650 mg Q6H PRN PO PAIN AND OR ELEVATED TEMP; Start 02/17/17 at 23:15 Atorvastatin Calcium (Lipitor) 10 mg DAILY@21 PO Last administered on 20:43; Admin Dose 10 MG; Start 02/17/17 at 23:15 Bisacodyl (Dulcolax) 10 mg DAILY PRN PO CONSTIPATION; Start 02/17/17 at 23:30 Clonidine (Catapres) 0.1 mg TID PRN PO SBP ABOVE 160mmHg Last administered on 02/22/17 02:15; Admin Dose 0.1 MG; Start 02/17/17 at 23:30 Linagliptin (Tradjenta) 5 mg DAILY PO Last administered on 02/27/17 09:07; Admin Dose 5 MG; Start 02/18/17 at 14:36 Miscellaneous Information 1 ea NOTE XX ; Start 02/18/17 at 15:00 Glucose (Glutose) 15 gm Q15M PRN PO DECREASED GLUCOSE; Start 02/18/17 at 15:00 Glucose (Glutose) 22.5 gm Q15M PRN PO DECREASED GLUCOSE; Start 02/18/17 at 15: 00 Dextrose (D50w Syringe) 25 ml Q15M PRN IV DECREASED GLUCOSE; Start 02/18/17 at 15:00 Dextrose (D50w Syringe) 50 ml Q15M PRN IV DECREASED GLUCOSE; Start 02/18/17 at 15:00 Glucagon (Glucagen) 1 mg Q15M PRN IM DECREASED GLUCOSE; Start 02/18/17 at 15:00 Glucose (Glutose) 15 gm Q15M PRN BUCCAL DECREASED GLUCOSE; Start 02/18/17 at 15 :00 Nifedipine (Procardia Xl) 30 mg BID PO Last administered on 02/27/17 12:43; Admin Dose 30 MG; Start 02/18/17 at 21:00 Carvedilol (Coreg) 12.5 mg BID PO Last administered on 02/27/17 09:08; Admin Dose 12.5 MG; Start 02/22/17 at 21:00 Diagnostic Test (Pha) (Accu-Chek) 1 ea BID XX Last administered on 02/27/17 09:57; Admin Dose 1 EA; Start 02/22/17 at 21:00 Epoetin Keven (Epogen (Esrd)) 6,000 units MoWeFr@17 IV Last administered on 15:24; Admin Dose 6,000 UNITS; Start 02/22/17 at 17:00 Bethanechol Chloride (Urecholine) 10 mg TID PO Last administered on 02/27/17 12:40; Admin Dose 10 MG; Start 02/22/17 at 21:00 VANE PAYTON MD Feb 27, 2017 14:40
[2017-02-27] MEDS: ATORVASTATIN 10 MG TAB PO SCH (20:34)
[2017-02-27] MEDS: TAMSULOSIN (SR) 0.4 MG CAP PO SCH (20:34)
[2017-02-27] MEDS: ROPINIROLE 0.25 MG TAB PO SCH (20:34)
[2017-02-27] MEDS: ZOLPIDEM 5 MG TAB PO PRN (22:27)
[2017-02-28 04:26] VITALS: BP 148/65; PULSE 74; RESP 16
[2017-02-28 07:00] VITALS: BP 152/65; RESP 18
[2017-02-28] MEDS: SEVELAMER 800 MG TAB PO SCH ×3 (08:39→17:39)
[2017-02-28] MEDS: MULTIVIT/CA CARB/B CMPLX/FA TAB PO SCH (08:39)
[2017-02-28] MEDS: ISOSORBIDE MONONITRATE(SR)60 MG TAB PO SCH (08:40)
[2017-02-28] MEDS: LINAGLIPTIN 5 MG TABLET PO SCH (08:40)
[2017-02-28] MEDS: BETHANECHOL 10 MG TAB PO SCH ×3 (08:40→21:31)
[2017-02-28] MEDS: FISH OIL 1,000 MG CAP PO SCH ×2 (08:40→21:31)
[2017-02-28] MEDS: NIFEdipine (XL) 30 MG TAB PO SCH ×2 (08:40→21:48)
[2017-02-28] MEDS: FAMOTIDINE 20 MG TAB PO SCH (08:40)
[2017-02-28] MEDS: FEBUXOSTAT 40 MG TABLET PO SCH (08:40)
[2017-02-28] MEDS: NICOTINE (14 MG/24 HR) PATCH TRANSDERM SCH (08:41)
[2017-02-28] MEDS: POLYETHYLENE GLYCOL 17 GM PACKET PO SCH ×3 (08:41→21:47)
[2017-02-28] MEDS: BALSAM PERU/CASTOR OIL 60 GM TUBE TOP SCH ×2 (08:41→21:47)
[2017-02-28] MEDS: PRASUGREL HYDROCHLORIDE 10 MG TABLET PO SCH (08:41)
[2017-02-28] MEDS: DOCUSATE SODIUM 100 MG CAP PO SCH ×2 (08:41→21:31)
[2017-02-28] MEDS: ACCU-CHEK XX SCH ×2 (08:54→21:00)
--- NOTE | 2017-02-28 09:49 | CONS ---
Date/Time of Note Date/Time of Note DATE: 02/28/17 TIME: 09:49 Consult Date/Type/Reason Admit Date/Time Feb 17, 2017 at 20:40 Initial Consult Date 02/22/17 Type of Consultation: neph Ordering Provider: [facility] Subjective The patient tolerated hd wednesday - 2liters, No other events noted. No vitals. No fevers, chills, nausea, vomiting. OBJECTIVE: HEENT: Head is normocephalic. Pupils are reactive to light. NECK: Supple. HEART: Regular rate. LUNGS: Show diminished breath sounds at base. ABDOMEN: Soft, nontender to palpation. No rebound or guarding. EXTREMITIES: Negative for clubbing, cyanosis. No edema. DERMATOLOGIC: No rashes. MUSCULOSKELETAL: No joint effusions. NEUROLOGIC: No change in exam. Objective Vital Signs Date Time Temp Pulse Resp B/P Pulse Ox O2 Delivery O2 Flow Rate FiO2 02/28/17 07:00 98.7 73 18 152/65 94 02/28/17 04:26 Room Air Intake and Output 02/27/17 02/27/17 02/28/17 15:00 23:00 07:00 Intake Total 450 ml 200 ml Balance 450 ml 200 ml Results/Medications Results 24 hrs Laboratory Tests Test 02/27/17 20:32 02/28/17 08:50 Bedside Glucose 115 90 Medications Current Medications Polyethylene Glycol (Miralax) 17 gm BID PO Last administered on 02/28/17 08: 41; Admin Dose 17 GM; Start 02/17/17 at 23:00 Prasugrel (Effient) 10 mg DAILY PO Last administered on 02/28/17 08:41; Admin Dose 10 MG; Start 02/18/17 at 09:00 Ropinirole HCl (Requip) 0.25 mg HS PO Last administered on 02/27/17 20:34; Admin Dose 0.25 MG; Start 02/17/17 at 23:00 Tamsulosin HCl (Flomax) 0.4 mg DAILY@21 PO Last administered on 02/27/17 20: 34; Admin Dose 0.4 MG; Start 02/17/17 at 23:00 Zolpidem Tartrate (Ambien) 10 mg HS PRN PO INSOMNIA Last administered on 22:27; Admin Dose 10 MG; Start 02/17/17 at 23:15 Multivit/Ca Carb/ B Cmplx/FA/Prenat (Paulina-Chrissy) 1 tab DAILY PO Last administered on 02/28/17 08:39; Admin Dose 1 TAB; Start 02/18/17 at 09:00 Nicotine (Nicoderm 14 Mg/ 24hr) 1 patch DAILY TRANSDERM Last administered on 08:41; Admin Dose 1 PATCH; Start 02/18/17 at 09:00 Hydralazine HCl (Apresoline) 50 mg BID PO Last administered on 02/28/17 08:40 ; Admin Dose 50 MG; Start 02/17/17 at 23:00 Acetaminophen/ Hydrocodone Bitart ([place] (5/325)) 2 tab Q4H PRN PO PAIN Last administered on 02/19/17 08:38; Admin Dose 2 TAB; Start 02/17/17 at 23:30 Acetaminophen/ Hydrocodone Bitart ([place] (5/325)) 1 tab Q4H PRN PO PAIN; Start 02/17/17 at 23:30 Isosorbide Mononitrate (Imdur) 60 mg DAILY PO Last administered on 02/28/17 08:40; Admin Dose 60 MG; Start 02/18/17 at 09:00 Fish Oil (Fish Oil) 1,000 mg BID PO Last administered on 02/28/17 08:40; Admin Dose 1,000 MG; Start 02/17/17 at 23:15 Docusate Sodium (Colace) 100 mg BID PO Last administered on 02/28/17 08:41; Admin Dose 100 MG; Start 02/17/17 at 23:15 Ergocalciferol (Drisdol) 50,000 unit Tu@09 PO Last administered on 02/23/17 09:29; Admin Dose 50,000 UNIT; Start 02/23/17 at 09:00 Famotidine (Pepcid) 20 mg DAILY PO Last administered on 02/28/17 08:40; Admin Dose 20 MG; Start 02/18/17 at 09:00 Febuxostat (Uloric) 40 mg DAILY PO Last administered on 02/28/17 08:40; Admin Dose 40 MG; Start 02/18/17 at 09:00 Acetaminophen (Tylenol Tab) 650 mg Q6H PRN PO PAIN AND OR ELEVATED TEMP; Start 02/17/17 at 23:15 Atorvastatin Calcium (Lipitor) 10 mg DAILY@21 PO Last administered on 20:34; Admin Dose 10 MG; Start 02/17/17 at 23:15 Bisacodyl (Dulcolax) 10 mg DAILY PRN PO CONSTIPATION; Start 02/17/17 at 23:30 Clonidine (Catapres) 0.1 mg TID PRN PO SBP ABOVE 160mmHg Last administered on 02/22/17 02:15; Admin Dose 0.1 MG; Start 02/17/17 at 23:30 Linagliptin (Tradjenta) 5 mg DAILY PO Last administered on 02/28/17 08:40; Admin Dose 5 MG; Start 02/18/17 at 14:36 Miscellaneous Information 1 ea NOTE XX ; Start 02/18/17 at 15:00 Glucose (Glutose) 15 gm Q15M PRN PO DECREASED GLUCOSE; Start 02/18/17 at 15:00 Glucose (Glutose) 22.5 gm Q15M PRN PO DECREASED GLUCOSE; Start 02/18/17 at 15: 00 Dextrose (D50w Syringe) 25 ml Q15M PRN IV DECREASED GLUCOSE; Start 02/18/17 at 15:00 Dextrose (D50w Syringe) 50 ml Q15M PRN IV DECREASED GLUCOSE; Start 02/18/17 at 15:00 Glucagon (Glucagen) 1 mg Q15M PRN IM DECREASED GLUCOSE; Start 02/18/17 at 15:00 Glucose (Glutose) 15 gm Q15M PRN BUCCAL DECREASED GLUCOSE; Start 02/18/17 at 15 :00 Nifedipine (Procardia Xl) 30 mg BID PO Last administered on 02/28/17 08:40; Admin Dose 30 MG; Start 02/18/17 at 21:00 Carvedilol (Coreg) 12.5 mg BID PO Last administered on 02/28/17 08:39; Admin Dose 12.5 MG; Start 02/22/17 at 21:00 Diagnostic Test (Pha) (Accu-Chek) 1 ea BID XX Last administered on 02/28/17 08:54; Admin Dose 1 EA; Start 02/22/17 at 21:00 Epoetin Keven (Epogen (Esrd)) 6,000 units MoWeFr@17 IV Last administered on 15:24; Admin Dose 6,000 UNITS; Start 02/22/17 at 17:00 Bethanechol Chloride (Urecholine) 10 mg TID PO Last administered on 02/28/17 08:40; Admin Dose 10 MG; Start 02/22/17 at 21:00 Assessment/Plan Chief Complaint/Hosp Course 1. End-stage renal disease. continue hd on qod schedule. assess daily for needs. all meds dosed ok. 2. Anemia. Monitor hemoglobin and hematocrit levels. Continue Epogen. 3. Mineral bone disorder. Continue to monitor calcium and phosphorus levels. 4. Congestive heart failure. Continue medical management. 5. Hypertension. Continue current blood pressure regimen. 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 7. Diabetes. Continue Accu-Cheks and insulin sliding scale. 8. Thrombocytopenia. Continue to monitor. Consider holding heparin. Problems: KANDICE RAYA MD Feb 28, 2017 09:49
--- NOTE | 2017-02-28 10:33 | CONS ---
Date/Time of Note Date/Time of Note DATE: 02/28/17 TIME: 10:32 Assessment/Plan Assessment/Plan Chief Complaint/Hosp Course 81-year-old male, who was transferred to rehabilitation unit for further rehabilitation following an onset of lower extremity weakness. 1. 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 -Status post treatment with pulse dose steroids followed by IVIG. -Continue PT/OT -Follow-up with outpatient studies EMG/NCV to evaluate for possible demyelinating polyneuropathy such as CIDP 2. 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 Hypertension. Now with good control -Continue current antihypertensives. Will monitor blood pressure closely and will adjust as indicated. 4. End-stage renal disease, on hemodialysis. -Follow-up with nephrology recommendations. 5. Status post sepsis bacteremia with Multidrug resistant urinary tract infection. Repeat Urine CS negative. 6. Coronary artery disease. -Continue home medications. 7. Dyslipidemia. -Continue statin/fish oil. 8. Anemia of chronic kidney disease. -HH stable. Will monitor. -Also obtain B12,folate and iron panel. 9. Type 2 diabetes mellitus. Latest A1c 4.9 with good glycemic control. -Stable. No need for insulin in-house. Continue Tradjenta. -Accu-Cheks twice daily and carbohydrate controlled diet. 10. Benign prostatic hypertrophy -Continue Flomax. 11. Urinary retention, likely secondary to neurogenic bladder. Resolved. -urology evaluation appreciated. on Urecholine 12. Obesity. -Weight reduction advised 13. Nicotine abuse. -Cessation advised. Prophylaxis: Ambulation/SCDs Patient was seen in collaboration with . Problems: Consultation Date/Type/Reason Admit Date/Time Feb 17, 2017 at 20:40 Initial Consult Date 02/22/17 Type of Consultation: neph Referring Provider: MAURO SPENCER MD, [facility] HR Interval Summary Free Text/Dictation No acute overnight episodes. Patient has been participating in physical therapy. Exam/Review of Systems Vital Signs Vitals Vital Signs Date Time Temp Pulse Resp B/P Pulse Ox O2 Delivery O2 Flow Rate FiO2 02/28/17 07:00 98.7 73 18 152/65 94 02/28/17 04:26 Room Air Intake and Output 02/27/17 02/27/17 02/28/17 14:59 22:59 06:59 Intake Total 450 ml 200 ml Balance 450 ml 200 ml Exam General: Elderly male, not in any acute distress . HEENT: Normocephalic, Atraumatic, No laceration or hematoma; Eyes: PEERL, Conjunctiva clear, Anicteric sclera Neck: Supple without any lymphadenopathy, nontender, no JVD, no carotid bruits, trachea midline, no thyromegaly Cardiac: S1, S2 auscultated, regular rhythm and rate, no mumurs or gallop Pulmonary: Normal respiratory effort. Chest clear to auscultation bilaterally, no adventitious breath sounds GI: Abdomen normal to inspection. Soft, non tender, non- distended, no masses, no rebound tenderness or guarding. Bowel sounds active on all four quadrants Genitourinary: Deferred Extremities: With severe weakness to bilateral lower extremities. No cyanosis, clubbing, or edema. Pulses [2+] bilaterally. No focal weakness appreciated. Neurologic: Alert to person, place, time, and situation. Affect appropriate, intact sensation. Skin: Clean,dry, and intact. No ecchymosis, no rashes, or lesions Results Results 24 hrs Laboratory Tests Test 02/27/17 20:32 02/28/17 08:50 Bedside Glucose 115 90 Medications Medications Current Medications Polyethylene Glycol (Miralax) 17 gm BID PO Last administered on 02/28/17 08: 41; Admin Dose 17 GM; Start 02/17/17 at 23:00 Prasugrel (Effient) 10 mg DAILY PO Last administered on 02/28/17 08:41; Admin Dose 10 MG; Start 02/18/17 at 09:00 Ropinirole HCl (Requip) 0.25 mg HS PO Last administered on 02/27/17 20:34; Admin Dose 0.25 MG; Start 02/17/17 at 23:00 Tamsulosin HCl (Flomax) 0.4 mg DAILY@21 PO Last administered on 02/27/17 20: 34; Admin Dose 0.4 MG; Start 02/17/17 at 23:00 Zolpidem Tartrate (Ambien) 10 mg HS PRN PO INSOMNIA Last administered on 22:27; Admin Dose 10 MG; Start 02/17/17 at 23:15 Multivit/Ca Carb/ B Cmplx/FA/Prenat (Paulina-Chrissy) 1 tab DAILY PO Last administered on 02/28/17 08:39; Admin Dose 1 TAB; Start 02/18/17 at 09:00 Nicotine (Nicoderm 14 Mg/ 24hr) 1 patch DAILY TRANSDERM Last administered on 08:41; Admin Dose 1 PATCH; Start 02/18/17 at 09:00 Hydralazine HCl (Apresoline) 50 mg BID PO Last administered on 02/28/17 08:40 ; Admin Dose 50 MG; Start 02/17/17 at 23:00 Acetaminophen/ Hydrocodone Bitart ([place] (5/325)) 2 tab Q4H PRN PO PAIN Last administered on 02/19/17 08:38; Admin Dose 2 TAB; Start 02/17/17 at 23:30 Acetaminophen/ Hydrocodone Bitart ([place] (5/325)) 1 tab Q4H PRN PO PAIN; Start 02/17/17 at 23:30 Isosorbide Mononitrate (Imdur) 60 mg DAILY PO Last administered on 02/28/17 08:40; Admin Dose 60 MG; Start 02/18/17 at 09:00 Fish Oil (Fish Oil) 1,000 mg BID PO Last administered on 02/28/17 08:40; Admin Dose 1,000 MG; Start 02/17/17 at 23:15 Docusate Sodium (Colace) 100 mg BID PO Last administered on 02/28/17 08:41; Admin Dose 100 MG; Start 02/17/17 at 23:15 Ergocalciferol (Drisdol) 50,000 unit @09 PO Last administered on 02/23/17 09:29; Admin Dose 50,000 UNIT; Start 02/23/17 at 09:00 Famotidine (Pepcid) 20 mg DAILY PO Last administered on 02/28/17 08:40; Admin Dose 20 MG; Start 02/18/17 at 09:00 Febuxostat (Uloric) 40 mg DAILY PO Last administered on 02/28/17 08:40; Admin Dose 40 MG; Start 02/18/17 at 09:00 Acetaminophen (Tylenol Tab) 650 mg Q6H PRN PO PAIN AND OR ELEVATED TEMP; Start 02/17/17 at 23:15 Atorvastatin Calcium (Lipitor) 10 mg DAILY@21 PO Last administered on 20:34; Admin Dose 10 MG; Start 02/17/17 at 23:15 Bisacodyl (Dulcolax) 10 mg DAILY PRN PO CONSTIPATION; Start 02/17/17 at 23:30 Clonidine (Catapres) 0.1 mg TID PRN PO SBP ABOVE 160mmHg Last administered on 02/22/17 02:15; Admin Dose 0.1 MG; Start 02/17/17 at 23:30 Linagliptin (Tradjenta) 5 mg DAILY PO Last administered on 02/28/17 08:40; Admin Dose 5 MG; Start 02/18/17 at 14:36 Miscellaneous Information 1 ea NOTE XX ; Start 02/18/17 at 15:00 Glucose (Glutose) 15 gm Q15M PRN PO DECREASED GLUCOSE; Start 02/18/17 at 15:00 Glucose (Glutose) 22.5 gm Q15M PRN PO DECREASED GLUCOSE; Start 02/18/17 at 15: 00 Dextrose (D50w Syringe) 25 ml Q15M PRN IV DECREASED GLUCOSE; Start 02/18/17 at 15:00 Dextrose (D50w Syringe) 50 ml Q15M PRN IV DECREASED GLUCOSE; Start 02/18/17 at 15:00 Glucagon (Glucagen) 1 mg Q15M PRN IM DECREASED GLUCOSE; Start 02/18/17 at 15:00 Glucose (Glutose) 15 gm Q15M PRN BUCCAL DECREASED GLUCOSE; Start 02/18/17 at 15 :00 Nifedipine (Procardia Xl) 30 mg BID PO Last administered on 02/28/17 08:40; Admin Dose 30 MG; Start 02/18/17 at 21:00 Carvedilol (Coreg) 12.5 mg BID PO Last administered on 02/28/17 08:39; Admin Dose 12.5 MG; Start 02/22/17 at 21:00 Diagnostic Test (Pha) (Accu-Chek) 1 ea BID XX Last administered on 02/28/17 08:54; Admin Dose 1 EA; Start 02/22/17 at 21:00 Epoetin Keven (Epogen (Esrd)) 6,000 units MoWeFr@17 IV Last administered on 15:24; Admin Dose 6,000 UNITS; Start 02/22/17 at 17:00 Bethanechol Chloride (Urecholine) 10 mg TID PO Last administered on 02/28/17t 08:40; Admin Dose 10 MG; Start 02/22/17 at 21:00 HEATH MAYBERRY NP Feb 28, 2017 10:33
[2017-02-28 10:53] LABS: IRON 51 ug/dl (35-150)
[2017-02-28 11:03] LABS: TOTAL IRON BINDING CAPACITY 223 ug/dl (241-421)
[2017-02-28 19:28] LABS: FOLATE > 20.0 ng/ml (2.8-20.0)
[2017-02-28 19:44] VITALS: BP 154/69; RESP 18
[2017-02-28] MEDS: ROPINIROLE 0.25 MG TAB PO SCH (21:31)
[2017-02-28] MEDS: ATORVASTATIN 10 MG TAB PO SCH (21:31)
[2017-02-28] MEDS: TAMSULOSIN (SR) 0.4 MG CAP PO SCH (21:31)
[2017-02-28] MEDS: ZOLPIDEM 5 MG TAB PO PRN (21:47)
[2017-03-01] VITALS (13 sets, daily range): BP systolic 97–170; BP diastolic 55–70; PULSE 69–86; RESP 17–20
[2017-03-01] MEDS: POLYETHYLENE GLYCOL 17 GM PACKET PO SCH ×2 (08:22→20:14)
[2017-03-01] MEDS: SEVELAMER 800 MG TAB PO SCH ×3 (08:22→18:17)
[2017-03-01] MEDS: PRASUGREL HYDROCHLORIDE 10 MG TABLET PO SCH (08:22)
[2017-03-01] MEDS: LINAGLIPTIN 5 MG TABLET PO SCH (08:23)
[2017-03-01] MEDS: NICOTINE (14 MG/24 HR) PATCH TRANSDERM SCH (08:23)
[2017-03-01] MEDS: FAMOTIDINE 20 MG TAB PO SCH (08:24)
[2017-03-01] MEDS: BETHANECHOL 10 MG TAB PO SCH ×2 (08:24→12:40)
[2017-03-01] MEDS: NIFEdipine (XL) 30 MG TAB PO SCH ×2 (08:24→20:17)
[2017-03-01] MEDS: DOCUSATE SODIUM 100 MG CAP PO SCH ×2 (08:24→20:18)
[2017-03-01] MEDS: FISH OIL 1,000 MG CAP PO SCH ×2 (08:24→20:18)
[2017-03-01] MEDS: ISOSORBIDE MONONITRATE(SR)60 MG TAB PO SCH (08:25)
[2017-03-01] MEDS: MULTIVIT/CA CARB/B CMPLX/FA TAB PO SCH (08:25)
[2017-03-01] MEDS: FEBUXOSTAT 40 MG TABLET PO SCH (08:26)
[2017-03-01] MEDS: ACCU-CHEK XX SCH ×2 (08:27→20:23)
[2017-03-01] MEDS: BALSAM PERU/CASTOR OIL 60 GM TUBE TOP SCH ×2 (08:27→20:18)
--- NOTE | 2017-03-01 10:41 | PN ---
DATE: 03/01/2017 SUBJECTIVE: The patient is stable. No events overnight. No fevers, chills, nausea, vomiting. The patient is pending hemodialysis today. OBJECTIVE: VITAL SIGNS: Blood pressure is 145/67, temperature 98.5, pulse 72, respirations 18. HEENT: Head is normocephalic. NECK: Supple. HEART: Regular rate. LUNGS: Show diminished breath sounds at the base. ABDOMEN: Soft, nontender to palpation. No rebound or guarding. EXTREMITIES: Negative for clubbing, cyanosis. No edema. DERMATOLOGIC: No rashes. MUSCULOSKELETAL: No joint effusions. NEUROLOGIC: No change in exam. MEDICATIONS: Have been reviewed. LABORATORY DATA: Has been reviewed. ASSESSMENT AND PLAN: 1. End-stage renal disease. Plan for hemodialysis today. 2. Anemia. Continue to monitor hemoglobin and hematocrit levels. Continue Epogen as needed. 3. Mineral bone disorder. Continue to monitor calcium and phosphorus levels. 4. Congestive heart failure. Continue medical management. 5. Hypertension. Continue current blood pressure regimen. 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 7. Diabetes. Continue Accu-Cheks, insulin sliding scale. Dictated By: CORIE MALIK/CORA Conf#: [id number] DID#: [id number]
--- NOTE | 2017-03-01 11:21 | CONS ---
Date/Time of Note Date/Time of Note DATE: 03/01/17 TIME: 11:18 Assessment/Plan Assessment/Plan Chief Complaint/Hosp Course 81-year-old male, who was transferred to rehabilitation unit for further rehabilitation following an onset of lower extremity weakness. 1. 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 -Status post treatment with pulse dose steroids followed by IVIG. -Continue PT/OT -Follow-up with outpatient studies EMG/NCV to evaluate for possible demyelinating polyneuropathy such as CIDP 2. 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 Hypertension. Now with good control -Continue current antihypertensives. Will monitor blood pressure closely and will adjust as indicated. 4. End-stage renal disease, on hemodialysis. -Follow-up with nephrology recommendations. 5. Status post sepsis bacteremia with Multidrug resistant urinary tract infection. Repeat Urine CS negative. 6. Coronary artery disease. -Continue home medications. 7. Dyslipidemia. -Continue statin/fish oil. 8. Anemia of chronic kidney disease. -HH stable. Will monitor. 9. Type 2 diabetes mellitus. Latest A1c 4.9 with good glycemic control. -Stable. No need for insulin in-house. Continue Tradjenta. -Accu-Cheks twice daily and carbohydrate controlled diet. 10. Benign prostatic hypertrophy -Continue Flomax. 11. Urinary retention, likely secondary to neurogenic bladder. Resolved. -urology evaluation appreciated. on Urecholine 12. Obesity. -Weight reduction advised 13. Nicotine abuse. -Cessation advised. Prophylaxis: Ambulation/SCDs Patient was seen in collaboration with . Problems: Consultation Date/Type/Reason Admit Date/Time Feb 17, 2017 at 20:40 Initial Consult Date 02/22/17 Type of Consultation: neph Referring Provider: MAURO SPENCER MD, [facility] 24 HR Interval Summary Free Text/Dictation No acute distress. Patient is voiding adequately. Exam/Review of Systems Vital Signs Vitals Vital Signs Date Time Temp Pulse Resp B/P Pulse Ox O2 Delivery O2 Flow Rate FiO2 03/01/17 08:19 72 18 145/67 95 Room Air 03/01/17 08:17 98.5 Intake and Output 02/28/17 02/28/17 03/01/17 15:00 23:00 07:00 Intake Total 1040 ml 600 ml Output Total 600 ml 300 ml Balance 440 ml 300 ml Exam General: Elderly male, not in any acute distress . HEENT: Normocephalic, Atraumatic, No laceration or hematoma; Eyes: PEERL, Conjunctiva clear, Anicteric sclera Neck: Supple without any lymphadenopathy, nontender, no JVD, no carotid bruits, trachea midline, no thyromegaly Cardiac: S1, S2 auscultated, regular rhythm and rate, no mumurs or gallop Pulmonary: Normal respiratory effort. Chest clear to auscultation bilaterally, no adventitious breath sounds GI: Abdomen normal to inspection. Soft, non tender, non- distended, no masses, no rebound tenderness or guarding. Bowel sounds active on all four quadrants Genitourinary: Deferred Extremities: With severe weakness to bilateral lower extremities. No cyanosis, clubbing, or edema. Pulses [2+] bilaterally. No focal weakness appreciated. Neurologic: Alert to person, place, time, and situation. Affect appropriate, intact sensation. Skin: Clean,dry, and intact. No ecchymosis, no rashes, or lesions Access: Left upper arm AV shunt. Results Results 24 hrs Laboratory Tests Test 02/28/17 21:57 03/01/17 07:56 Bedside Glucose 116 97 Medications Medications Current Medications Polyethylene Glycol (Miralax) 17 gm BID PO Last administered on 03/01/17 08: 22; Admin Dose 17 GM; Start 02/17/17 at 23:00 Prasugrel (Effient) 10 mg DAILY PO Last administered on 03/01/17 08:22; Admin Dose 10 MG; Start 02/18/17 at 09:00 Ropinirole HCl (Requip) 0.25 mg HS PO Last administered on 02/28/17 21:31; Admin Dose 0.25 MG; Start 02/17/17 at 23:00 Tamsulosin HCl (Flomax) 0.4 mg DAILY@21 PO Last administered on 02/28/17 21: 31; Admin Dose 0.4 MG; Start 02/17/17 at 23:00 Zolpidem Tartrate (Ambien) 10 mg HS PRN PO INSOMNIA Last administered on 21:47; Admin Dose 10 MG; Start 02/17/17 at 23:15 Multivit/Ca Carb/ B Cmplx/FA/Prenat (Paulina-Chrissy) 1 tab DAILY PO Last administered on 03/01/17 08:25; Admin Dose 1 TAB; Start 02/18/17 at 09:00 Nicotine (Nicoderm 14 Mg/ 24hr) 1 patch DAILY TRANSDERM Last administered on 08:23; Admin Dose 1 PATCH; Start 02/18/17 at 09:00 Hydralazine HCl (Apresoline) 50 mg BID PO Last administered on 03/01/17 08:32 ; Admin Dose 50 MG; Start 02/17/17 at 23:00 Acetaminophen/ Hydrocodone Bitart ([place] (5/325)) 2 tab Q4H PRN PO PAIN Last administered on 02/19/17 08:38; Admin Dose 2 TAB; Start 02/17/17 at 23:30 Acetaminophen/ Hydrocodone Bitart ([place] (5/325)) 1 tab Q4H PRN PO PAIN; Start 02/17/17 at 23:30 Isosorbide Mononitrate (Imdur) 60 mg DAILY PO Last administered on 03/01/17 08:25; Admin Dose 60 MG; Start 02/18/17 at 09:00 Fish Oil (Fish Oil) 1,000 mg BID PO Last administered on 03/01/17 08:24; Admin Dose 1,000 MG; Start 02/17/17 at 23:15 Docusate Sodium (Colace) 100 mg BID PO Last administered on 03/01/17 08:24; Admin Dose 100 MG; Start 02/17/17 at 23:15 Ergocalciferol (Drisdol) 50,000 unit @09 PO Last administered on 02/23/17 09:29; Admin Dose 50,000 UNIT; Start 02/23/17 at 09:00 Famotidine (Pepcid) 20 mg DAILY PO Last administered on 03/01/17 08:24; Admin Dose 20 MG; Start 02/18/17 at 09:00 Febuxostat (Uloric) 40 mg DAILY PO Last administered on 03/01/17 08:26; Admin Dose 40 MG; Start 02/18/17 at 09:00 Acetaminophen (Tylenol Tab) 650 mg Q6H PRN PO PAIN AND OR ELEVATED TEMP; Start 02/17/17 at 23:15 Atorvastatin Calcium (Lipitor) 10 mg DAILY@21 PO Last administered on 21:31; Admin Dose 10 MG; Start 02/17/17 at 23:15 Bisacodyl (Dulcolax) 10 mg DAILY PRN PO CONSTIPATION; Start 02/17/17 at 23:30 Clonidine (Catapres) 0.1 mg TID PRN PO SBP ABOVE 160mmHg Last administered on 03/01/17 02:21; Admin Dose 0.1 MG; Start 02/17/17 at 23:30 Linagliptin (Tradjenta) 5 mg DAILY PO Last administered on 03/01/17 08:23; Admin Dose 5 MG; Start 02/18/17 at 14:36 Miscellaneous Information 1 ea NOTE XX ; Start 02/18/17 at 15:00 Glucose (Glutose) 15 gm Q15M PRN PO DECREASED GLUCOSE; Start 02/18/17 at 15:00 Glucose (Glutose) 22.5 gm Q15M PRN PO DECREASED GLUCOSE; Start 02/18/17 at 15: 00 Dextrose (D50w Syringe) 25 ml Q15M PRN IV DECREASED GLUCOSE; Start 02/18/17 at 15:00 Dextrose (D50w Syringe) 50 ml Q15M PRN IV DECREASED GLUCOSE; Start 02/18/17 at 15:00 Glucagon (Glucagen) 1 mg Q15M PRN IM DECREASED GLUCOSE; Start 02/18/17 at 15:00 Glucose (Glutose) 15 gm Q15M PRN BUCCAL DECREASED GLUCOSE; Start 02/18/17 at 15 :00 Nifedipine (Procardia Xl) 30 mg BID PO Last administered on 03/01/17 08:24; Admin Dose 30 MG; Start 02/18/17 at 21:00 Carvedilol (Coreg) 12.5 mg BID PO Last administered on 03/01/17 08:25; Admin Dose 12.5 MG; Start 02/22/17 at 21:00 Diagnostic Test (Pha) (Accu-Chek) 1 ea BID XX Last administered on 03/01/17 08:27; Admin Dose 1 EA; Start 02/22/17 at 21:00 Epoetin Keven (Epogen (Esrd)) 6,000 units MoWeFr@17 IV Last administered on 10/ 13/17at 15:24; Admin Dose 6,000 UNITS; Start 02/22/17 at 17:00 Bethanechol Chloride (Urecholine) 10 mg TID PO Last administered on 03/01/17t 08:24; Admin Dose 10 MG; Start 02/22/17 at 21:00 HEATH MAYBERRY NP Mar 01, 2017 11:21 HEATH MAYBERRY NP Mar 01, 2017 11:21
--- NOTE | 2017-03-01 12:23 | CONS ---
Date/Time of Note Date/Time of Note DATE: 03/01/17 TIME: 11:45 Consult Date/Type/Reason Admit Date/Time Feb 17, 2017 at 20:40 Type of Consultation: neph Ordering Provider: [facility] Subjective comfortable Objective Vital Signs Date Time Temp Pulse Resp B/P Pulse Ox O2 Delivery O2 Flow Rate FiO2 03/01/17 08:19 72 18 145/67 95 Room Air 03/01/17 08:17 98.5 Intake and Output 02/28/17 02/28/17 03/01/17 15:00 23:00 07:00 Intake Total 1040 ml 600 ml Output Total 600 ml 300 ml Balance 440 ml 300 ml INTERDISCIPLINARY TEAM CONFERENCE BOWEL- Cont BLADDER-incont; ESRD-HD SKIN- improving OT- DRESSING-sba/mod BATHING-sba/mod TOILETING-mod PT- BED MOBILITY-sba TRANSFERS-min AMBULATION-max W.C. MOBILITY-min 60 SPEECH- COGNITION-sba A/P- Interdisciplinary team conference held today. Please see interdisciplinary sheet. Working toward d.c. on 03/05 with post discharge follow up of physical therapy, occupational therapy. Results/Medications Results 24 hrs Laboratory Tests Test 02/28/17 21:57 03/01/17 07:56 Bedside Glucose 116 97 Medications Current Medications Polyethylene Glycol (Miralax) 17 gm BID PO Last administered on 03/01/17 08: 22; Admin Dose 17 GM; Start 02/17/17 at 23:00 Prasugrel (Effient) 10 mg DAILY PO Last administered on 03/01/17 08:22; Admin Dose 10 MG; Start 02/18/17 at 09:00 Ropinirole HCl (Requip) 0.25 mg HS PO Last administered on 02/28/17 21:31; Admin Dose 0.25 MG; Start 02/17/17 at 23:00 Tamsulosin HCl (Flomax) 0.4 mg DAILY@21 PO Last administered on 02/28/17 21: 31; Admin Dose 0.4 MG; Start 02/17/17 at 23:00 Zolpidem Tartrate (Ambien) 10 mg HS PRN PO INSOMNIA Last administered on 21:47; Admin Dose 10 MG; Start 02/17/17 at 23:15 Multivit/Ca Carb/ B Cmplx/FA/Prenat (Paulina-Chrissy) 1 tab DAILY PO Last administered on 03/01/17 08:25; Admin Dose 1 TAB; Start 02/18/17 at 09:00 Nicotine (Nicoderm 14 Mg/ 24hr) 1 patch DAILY TRANSDERM Last administered on 08:23; Admin Dose 1 PATCH; Start 02/18/17 at 09:00 Hydralazine HCl (Apresoline) 50 mg BID PO Last administered on 03/01/17 08:32 ; Admin Dose 50 MG; Start 02/17/17 at 23:00 Acetaminophen/ Hydrocodone Bitart ([place] (5/325)) 2 tab Q4H PRN PO PAIN Last administered on 02/19/17 08:38; Admin Dose 2 TAB; Start 02/17/17 at 23:30 Acetaminophen/ Hydrocodone Bitart ([place] (5/325)) 1 tab Q4H PRN PO PAIN; Start 02/17/17 at 23:30 Isosorbide Mononitrate (Imdur) 60 mg DAILY PO Last administered on 03/01/17 08:25; Admin Dose 60 MG; Start 02/18/17 at 09:00 Fish Oil (Fish Oil) 1,000 mg BID PO Last administered on 03/01/17 08:24; Admin Dose 1,000 MG; Start 02/17/17 at 23:15 Docusate Sodium (Colace) 100 mg BID PO Last administered on 03/01/17 08:24; Admin Dose 100 MG; Start 02/17/17 at 23:15 Ergocalciferol (Drisdol) 50,000 unit Tu@09 PO Last administered on 02/23/17 09:29; Admin Dose 50,000 UNIT; Start 02/23/17 at 09:00 Famotidine (Pepcid) 20 mg DAILY PO Last administered on 03/01/17 08:24; Admin Dose 20 MG; Start 02/18/17 at 09:00 Febuxostat (Uloric) 40 mg DAILY PO Last administered on 03/01/17 08:26; Admin Dose 40 MG; Start 02/18/17 at 09:00 Acetaminophen (Tylenol Tab) 650 mg Q6H PRN PO PAIN AND OR ELEVATED TEMP; Start 02/17/17 at 23:15 Atorvastatin Calcium (Lipitor) 10 mg DAILY@21 PO Last administered on 21:31; Admin Dose 10 MG; Start 02/17/17 at 23:15 Bisacodyl (Dulcolax) 10 mg DAILY PRN PO CONSTIPATION; Start 02/17/17 at 23:30 Clonidine (Catapres) 0.1 mg TID PRN PO SBP ABOVE 160mmHg Last administered on 03/01/17 02:21; Admin Dose 0.1 MG; Start 02/17/17 at 23:30 Linagliptin (Tradjenta) 5 mg DAILY PO Last administered on 03/01/17 08:23; Admin Dose 5 MG; Start 02/18/17 at 14:36 Miscellaneous Information 1 ea NOTE XX ; Start 02/18/17 at 15:00 Glucose (Glutose) 15 gm Q15M PRN PO DECREASED GLUCOSE; Start 02/18/17 at 15:00 Glucose (Glutose) 22.5 gm Q15M PRN PO DECREASED GLUCOSE; Start 02/18/17 at 15: 00 Dextrose (D50w Syringe) 25 ml Q15M PRN IV DECREASED GLUCOSE; Start 02/18/17 at 15:00 Dextrose (D50w Syringe) 50 ml Q15M PRN IV DECREASED GLUCOSE; Start 02/18/17 at 15:00 Glucagon (Glucagen) 1 mg Q15M PRN IM DECREASED GLUCOSE; Start 02/18/17 at 15:00 Glucose (Glutose) 15 gm Q15M PRN BUCCAL DECREASED GLUCOSE; Start 02/18/17 at 15 :00 Nifedipine (Procardia Xl) 30 mg BID PO Last administered on 03/01/17 08:24; Admin Dose 30 MG; Start 02/18/17 at 21:00 Carvedilol (Coreg) 12.5 mg BID PO Last administered on 03/01/17 08:25; Admin Dose 12.5 MG; Start 02/22/17 at 21:00 Diagnostic Test (Pha) (Accu-Chek) 1 ea BID XX Last administered on 03/01/17 08:27; Admin Dose 1 EA; Start 02/22/17 at 21:00 Epoetin Keven (Epogen (Esrd)) 6,000 units MoWeFr@17 IV Last administered on 15:24; Admin Dose 6,000 UNITS; Start 02/22/17 at 17:00 Bethanechol Chloride (Urecholine) 10 mg TID PO Last administered on 03/01/17 08:24; Admin Dose 10 MG; Start 02/22/17 at 21:00 JESSICA ADAMS MD Mar 01, 2017 12:23
[2017-03-01] MEDS: EPOETIN 3000 UNITS/1 ML INJ (ESRD) IV SCH (16:39)
[2017-03-01] MEDS: ATORVASTATIN 10 MG TAB PO SCH (20:17)
[2017-03-01] MEDS: BETHANECHOL 25 MG TAB PO SCH (20:17)
[2017-03-01] MEDS: ROPINIROLE 0.25 MG TAB PO SCH (20:18)
[2017-03-01] MEDS: TAMSULOSIN (SR) 0.4 MG CAP PO SCH (20:18)
[2017-03-02] MEDS: ZOLPIDEM 5 MG TAB PO PRN (00:24)
[2017-03-02 02:00] VITALS: BP 111/54; RESP 18
--- NOTE | 2017-03-02 03:23 | PN ---
DATE: 03/01/2017 SUBJECTIVE: Urinary incontinence. The patient stated that his urine comes out without him even not icing it. He does have a West Nile virus meningitis. OBJECTIVE FINDINGS: His temperature is 98.5, the pulse is 83, respiration is 18, blood pressure 145 /67. The patient is sitting and eating his dinner and he, again, states that he does urinate in bed becau se he does not feel the urine, it comes out by itself. He had dialysis today. The patient being ch ecked with bladder scan and the bladder scan showed 120 mL in the bladder. Therefore, no straight c atheterization was done. MEDICATIONS: 1. Ergocalciferol. 2. Carvedilol. 3. Urecholine 10 mg 3 times a day. 4. Epogen. 5. Procardia. 6. He is on Tradjenta. 7. Effient. 8. Multivitamin. 9. Famotidine. 10. Imdur. 11. Renagel. 12. Dulcolax. 13. Catapres. 14. Zolpidem. 15. Fish oil. 16. Colace. 17. MiraLax. 18. Tamsulosin. 19. Hydralazine. IMPRESSION: Urinary incontinence secondary to his neurological status from the West Nile virus meni ngitis. The patient also does have end-stage renal disease and he is on dialysis. PLAN: Do the bladder scan on him once a shift to make sure that there is no retention and if there is a high postvoid residual, try to do straight catheterization on him to empty his bladder. Dictated By: VANE JOHNSON/CORA Conf#: [id number] DID#: [id number] CC: JESSICA ADAMS MD;*EndCC*
[2017-03-02 07:00] VITALS: BP 131/61; RESP 18
[2017-03-02 07:30] VITALS: BP 131/61; PULSE 72; RESP 18
[2017-03-02] MEDS: ACCU-CHEK XX SCH ×2 (07:30→21:33)
[2017-03-02] MEDS: SEVELAMER 800 MG TAB PO SCH ×3 (08:12→17:35)
[2017-03-02] MEDS: ISOSORBIDE MONONITRATE(SR)60 MG TAB PO SCH (08:28)
[2017-03-02] MEDS: LINAGLIPTIN 5 MG TABLET PO SCH (08:29)
[2017-03-02] MEDS: MULTIVIT/CA CARB/B CMPLX/FA TAB PO SCH (08:29)
[2017-03-02] MEDS: FISH OIL 1,000 MG CAP PO SCH ×2 (08:29→21:25)
[2017-03-02] MEDS: FEBUXOSTAT 40 MG TABLET PO SCH (08:29)
[2017-03-02] MEDS: NIFEdipine (XL) 30 MG TAB PO SCH ×2 (08:30→21:26)
[2017-03-02] MEDS: FAMOTIDINE 20 MG TAB PO SCH (08:30)
[2017-03-02] MEDS: DOCUSATE SODIUM 100 MG CAP PO SCH ×2 (08:30→21:24)
[2017-03-02] MEDS: BETHANECHOL 25 MG TAB PO SCH ×3 (08:31→21:26)
[2017-03-02] MEDS: PRASUGREL HYDROCHLORIDE 10 MG TABLET PO SCH (08:31)
[2017-03-02] MEDS: NICOTINE (14 MG/24 HR) PATCH TRANSDERM SCH (08:31)
[2017-03-02] MEDS: POLYETHYLENE GLYCOL 17 GM PACKET PO SCH ×2 (08:31→21:26)
[2017-03-02] MEDS: ERGOCALCIFEROL 50,000 UNIT CAP PO SCH (09:00)
[2017-03-02] MEDS: BALSAM PERU/CASTOR OIL 60 GM TUBE TOP SCH ×2 (09:00→21:26)
--- NOTE | 2017-03-02 10:55 | PN ---
DATE: 03/02/2017 SUBJECTIVE: The patient is stable. Had hemodialysis yesterday, tolerated well. OBJECTIVE: VITAL SIGNS: Blood pressure is 131/61, respirations 18, pulse 72, temperature 98.8. HEENT: Head is normocephalic. NECK: Supple. HEART: Regular rate. LUNGS: Show diminished breath sounds at base. ABDOMEN: Soft, nontender to palpation without rebound or guarding. EXTREMITIES: Negative for clubbing, cyanosis, no edema. DERMATOLOGIC: No rashes. MUSCULOSKELETAL: No joint effusions. NEUROLOGIC: No change in exam. MEDICATIONS: Have been reviewed. LABORATORY DATA: Has been reviewed. ASSESSMENT AND PLAN: 1. Endstage renal disease. Plan for hemodialysis tomorrow. 2. Anemia. Monitor hemoglobin and hematocrit levels. Continue Epogen. 3. Mineral bone disorder. Continue to monitor calcium and phosphorus levels. 4. Congestive heart failure. Continue medical management. 5. Hypertension. Continue current blood pressure regimen. 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 Continue to monitor. 7. Diabetes. Continue Accu-Cheks, insulin sliding scale. Dictated By: CORIE MALIK/CORA Conf#: [id number] DID#: [id number]
--- NOTE | 2017-03-02 11:56 | CONS ---
Date/Time of Note Date/Time of Note DATE: 03/02/17 TIME: 11:55 Consult Date/Type/Reason Admit Date/Time Feb 17, 2017 at 20:40 Type of Consultation: neph Ordering Provider: MAURO SPENCER MD, [facility] Subjective No new complaints Objective pulm-cta mod ambulation 10 feet min transfer Vital Signs Date Time Temp Pulse Resp B/P Pulse Ox O2 Delivery O2 Flow Rate FiO2 03/02/17 07:00 98.8 72 18 131/61 94 03/01/17 08:19 Room Air Intake and Output 03/01/17 03/01/17 03/02/17 15:00 23:00 07:00 Intake Total 500 ml Output Total 1500 ml Balance -1000 ml Results/Medications Results 24 hrs Laboratory Tests Test 03/01/17 11:57 03/01/17 17:47 03/01/17 20:23 03/02/17 07:54 Bedside Glucose 152 112 161 93 Medications Current Medications Polyethylene Glycol (Miralax) 17 gm BID PO Last administered on 03/02/17 08: 31; Admin Dose 17 GM; Start 02/17/17 at 23:00 Prasugrel (Effient) 10 mg DAILY PO Last administered on 03/02/17 08:31; Admin Dose 10 MG; Start 02/18/17 at 09:00 Ropinirole HCl (Requip) 0.25 mg HS PO Last administered on 03/01/17 20:18; Admin Dose 0.25 MG; Start 02/17/17 at 23:00 Tamsulosin HCl (Flomax) 0.4 mg DAILY@21 PO Last administered on 03/01/17 20: 18; Admin Dose 0.4 MG; Start 02/17/17 at 23:00 Zolpidem Tartrate (Ambien) 10 mg HS PRN PO INSOMNIA Last administered on 00:24; Admin Dose 10 MG; Start 02/17/17 at 23:15 Multivit/Ca Carb/ B Cmplx/FA/Prenat (Paulina-Chrissy) 1 tab DAILY PO Last administered on 03/02/17 08:29; Admin Dose 1 TAB; Start 02/18/17 at 09:00 Nicotine (Nicoderm 14 Mg/ 24hr) 1 patch DAILY TRANSDERM Last administered on 08:31; Admin Dose 1 PATCH; Start 02/18/17 at 09:00 Hydralazine HCl (Apresoline) 50 mg BID PO Last administered on 03/02/17 08:30 ; Admin Dose 50 MG; Start 02/17/17 at 23:00 Acetaminophen/ Hydrocodone Bitart ([place] (5/325)) 2 tab Q4H PRN PO PAIN Last administered on 02/19/17 08:38; Admin Dose 2 TAB; Start 02/17/17 at 23:30 Acetaminophen/ Hydrocodone Bitart ([place] (5/325)) 1 tab Q4H PRN PO PAIN; Start 02/17/17 at 23:30 Isosorbide Mononitrate (Imdur) 60 mg DAILY PO Last administered on 03/02/17 08:28; Admin Dose 60 MG; Start 02/18/17 at 09:00 Fish Oil (Fish Oil) 1,000 mg BID PO Last administered on 03/02/17 08:29; Admin Dose 1,000 MG; Start 02/17/17 at 23:15 Docusate Sodium (Colace) 100 mg BID PO Last administered on 03/02/17 08:30; Admin Dose 100 MG; Start 02/17/17 at 23:15 Ergocalciferol (Drisdol) 50,000 unit Tu@09 PO Last administered on 03/02/17 09:00; Admin Dose 50,000 UNIT; Start 02/23/17 at 09:00 Famotidine (Pepcid) 20 mg DAILY PO Last administered on 03/02/17 08:30; Admin Dose 20 MG; Start 02/18/17 at 09:00 Febuxostat (Uloric) 40 mg DAILY PO Last administered on 03/02/17 08:29; Admin Dose 40 MG; Start 02/18/17 at 09:00 Acetaminophen (Tylenol Tab) 650 mg Q6H PRN PO PAIN AND OR ELEVATED TEMP; Start 02/17/17 at 23:15 Atorvastatin Calcium (Lipitor) 10 mg DAILY@21 PO Last administered on 20:17; Admin Dose 10 MG; Start 02/17/17 at 23:15 Bisacodyl (Dulcolax) 10 mg DAILY PRN PO CONSTIPATION; Start 02/17/17 at 23:30 Clonidine (Catapres) 0.1 mg TID PRN PO SBP ABOVE 160mmHg Last administered on 03/01/17 02:21; Admin Dose 0.1 MG; Start 02/17/17 at 23:30 Linagliptin (Tradjenta) 5 mg DAILY PO Last administered on 03/02/17 08:29; Admin Dose 5 MG; Start 02/18/17 at 14:36 Miscellaneous Information 1 ea NOTE XX ; Start 02/18/17 at 15:00 Glucose (Glutose) 15 gm Q15M PRN PO DECREASED GLUCOSE; Start 02/18/17 at 15:00 Glucose (Glutose) 22.5 gm Q15M PRN PO DECREASED GLUCOSE; Start 02/18/17 at 15: 00 Dextrose (D50w Syringe) 25 ml Q15M PRN IV DECREASED GLUCOSE; Start 02/18/17 at 15:00 Dextrose (D50w Syringe) 50 ml Q15M PRN IV DECREASED GLUCOSE; Start 02/18/17 at 15:00 Glucagon (Glucagen) 1 mg Q15M PRN IM DECREASED GLUCOSE; Start 02/18/17 at 15:00 Glucose (Glutose) 15 gm Q15M PRN BUCCAL DECREASED GLUCOSE; Start 02/18/17 at 15 :00 Nifedipine (Procardia Xl) 30 mg BID PO Last administered on 03/02/17 08:30; Admin Dose 30 MG; Start 02/18/17 at 21:00 Carvedilol (Coreg) 12.5 mg BID PO Last administered on 03/02/17 08:29; Admin Dose 12.5 MG; Start 02/22/17 at 21:00 Diagnostic Test (Pha) (Accu-Chek) 1 ea BID XX Last administered on 03/02/17 07:30; Admin Dose 1 EA; Start 02/22/17 at 21:00 Epoetin Keven (Epogen (Esrd)) 6,000 units MoWeFr@17 IV Last administered on 16:39; Admin Dose 6,000 UNITS; Start 02/22/17 at 17:00 Bethanechol Chloride (Urecholine) 25 mg TID PO Last administered on 03/02/17 08:31; Admin Dose 25 MG; Start 03/01/17 at 21:00 Assessment/Plan Additional Assessment/Plan Rehab-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 Family training this week End-stage renal disease on hemodialysis. Urinary tract infection. Congestive heart failure. Hypertension. JESSICA ADAMS MD Mar 02, 2017 11:56
--- NOTE | 2017-03-02 13:05 | CONS ---
Date/Time of Note Date/Time of Note DATE: 03/02/17 TIME: 13:04 Assessment/Plan Assessment/Plan Chief Complaint/Hosp Course 81-year-old male, who was transferred to rehabilitation unit for further rehabilitation following an onset of lower extremity weakness. 1. 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 -Status post treatment with pulse dose steroids followed by IVIG. -Continue PT/OT -Follow-up with outpatient studies EMG/NCV to evaluate for possible demyelinating polyneuropathy such as CIDP 2. 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 Hypertension. Now with good control -Continue current antihypertensives. Will monitor blood pressure closely and will adjust as indicated. 4. End-stage renal disease, on hemodialysis. -Follow-up with nephrology recommendations. 5. Status post sepsis bacteremia with Multidrug resistant urinary tract infection. Repeat Urine CS negative. 6. Coronary artery disease. -Continue home medications. 7. Dyslipidemia. -Continue statin/fish oil. 8. Anemia of chronic kidney disease. -HH stable. Will monitor. 9. Type 2 diabetes mellitus. Latest A1c 4.9 with good glycemic control. -Stable. No need for insulin in-house. Continue Tradjenta. -Accu-Cheks twice daily and carbohydrate controlled diet. 10. Benign prostatic hypertrophy -Continue Flomax. 11. Urinary retention, likely secondary to neurogenic bladder. Resolved. -urology evaluation appreciated. on Urecholine 12. Obesity. -Weight reduction advised 13. Nicotine abuse. -Cessation advised. Prophylaxis: Ambulation/SCDs Patient was seen in collaboration with . Problems: Consultation Date/Type/Reason Admit Date/Time Feb 17, 2017 at 20:40 Initial Consult Date 02/22/17 Type of Consultation: neph Referring Provider: MAURO SPENCER MD, [facility] 24 HR Interval Summary Free Text/Dictation No acute overnight episodes. Exam/Review of Systems Vital Signs Vitals Vital Signs Date Time Temp Pulse Resp B/P Pulse Ox O2 Delivery O2 Flow Rate FiO2 03/02/17 07:00 98.8 72 18 131/61 94 03/01/17 08:19 Room Air Intake and Output 03/01/17 03/01/17 03/02/17 15:00 23:00 07:00 Intake Total 500 ml Output Total 1500 ml Balance -1000 ml Exam General: Elderly male, not in any acute distress . HEENT: Normocephalic, Atraumatic, No laceration or hematoma; Eyes: PEERL, Conjunctiva clear, Anicteric sclera Neck: Supple without any lymphadenopathy, nontender, no JVD, no carotid bruits, trachea midline, no thyromegaly Cardiac: S1, S2 auscultated, regular rhythm and rate, no mumurs or gallop Pulmonary: Normal respiratory effort. Chest clear to auscultation bilaterally, no adventitious breath sounds GI: Abdomen normal to inspection. Soft, non tender, non- distended, no masses, no rebound tenderness or guarding. Bowel sounds active on all four quadrants Genitourinary: Deferred Extremities: With severe weakness to bilateral lower extremities. No cyanosis, clubbing, or edema. Pulses [2+] bilaterally. No focal weakness appreciated. Neurologic: Alert to person, place, time, and situation. Affect appropriate, intact sensation. Skin: Clean,dry, and intact. No ecchymosis, no rashes, or lesions Access: Left upper arm AV shunt. Results Results 24 hrs Laboratory Tests Test 03/01/17 17:47 03/01/17 20:23 03/02/17 07:54 Bedside Glucose 112 161 93 Medications Medications Current Medications Polyethylene Glycol (Miralax) 17 gm BID PO Last administered on 03/02/17 08: 31; Admin Dose 17 GM; Start 02/17/17 at 23:00 Prasugrel (Effient) 10 mg DAILY PO Last administered on 03/02/17 08:31; Admin Dose 10 MG; Start 02/18/17 at 09:00 Ropinirole HCl (Requip) 0.25 mg HS PO Last administered on 03/01/17 20:18; Admin Dose 0.25 MG; Start 02/17/17 at 23:00 Tamsulosin HCl (Flomax) 0.4 mg DAILY@21 PO Last administered on 03/01/17 20: 18; Admin Dose 0.4 MG; Start 02/17/17 at 23:00 Zolpidem Tartrate (Ambien) 10 mg HS PRN PO INSOMNIA Last administered on 00:24; Admin Dose 10 MG; Start 02/17/17 at 23:15 Multivit/Ca Carb/ B Cmplx/FA/Prenat (Paulina-Chrissy) 1 tab DAILY PO Last administered on 03/02/17 08:29; Admin Dose 1 TAB; Start 02/18/17 at 09:00 Nicotine (Nicoderm 14 Mg/ 24hr) 1 patch DAILY TRANSDERM Last administered on 08:31; Admin Dose 1 PATCH; Start 02/18/17 at 09:00 Hydralazine HCl (Apresoline) 50 mg BID PO Last administered on 03/02/17 08:30 ; Admin Dose 50 MG; Start 02/17/17 at 23:00 Acetaminophen/ Hydrocodone Bitart ([place] (5/325)) 2 tab Q4H PRN PO PAIN Last administered on 02/19/17 08:38; Admin Dose 2 TAB; Start 02/17/17 at 23:30 Acetaminophen/ Hydrocodone Bitart ([place] (5/325)) 1 tab Q4H PRN PO PAIN; Start 02/17/17 at 23:30 Isosorbide Mononitrate (Imdur) 60 mg DAILY PO Last administered on 03/02/17 08:28; Admin Dose 60 MG; Start 02/18/17 at 09:00 Fish Oil (Fish Oil) 1,000 mg BID PO Last administered on 03/02/17 08:29; Admin Dose 1,000 MG; Start 02/17/17 at 23:15 Docusate Sodium (Colace) 100 mg BID PO Last administered on 03/02/17 08:30; Admin Dose 100 MG; Start 02/17/17 at 23:15 Ergocalciferol (Drisdol) 50,000 unit Tu@09 PO Last administered on 03/02/17 09:00; Admin Dose 50,000 UNIT; Start 02/23/17 at 09:00 Famotidine (Pepcid) 20 mg DAILY PO Last administered on 03/02/17 08:30; Admin Dose 20 MG; Start 02/18/17 at 09:00 Febuxostat (Uloric) 40 mg DAILY PO Last administered on 03/02/17 08:29; Admin Dose 40 MG; Start 02/18/17 at 09:00 Acetaminophen (Tylenol Tab) 650 mg Q6H PRN PO PAIN AND OR ELEVATED TEMP; Start 02/17/17 at 23:15 Atorvastatin Calcium (Lipitor) 10 mg DAILY@21 PO Last administered on 20:17; Admin Dose 10 MG; Start 02/17/17 at 23:15 Bisacodyl (Dulcolax) 10 mg DAILY PRN PO CONSTIPATION; Start 02/17/17 at 23:30 Clonidine (Catapres) 0.1 mg TID PRN PO SBP ABOVE 160mmHg Last administered on 03/01/17 02:21; Admin Dose 0.1 MG; Start 02/17/17 at 23:30 Linagliptin (Tradjenta) 5 mg DAILY PO Last administered on 03/02/17 08:29; Admin Dose 5 MG; Start 02/18/17 at 14:36 Miscellaneous Information 1 ea NOTE XX ; Start 02/18/17 at 15:00 Glucose (Glutose) 15 gm Q15M PRN PO DECREASED GLUCOSE; Start 02/18/17 at 15:00 Glucose (Glutose) 22.5 gm Q15M PRN PO DECREASED GLUCOSE; Start 02/18/17 at 15: 00 Dextrose (D50w Syringe) 25 ml Q15M PRN IV DECREASED GLUCOSE; Start 02/18/17 at 15:00 Dextrose (D50w Syringe) 50 ml Q15M PRN IV DECREASED GLUCOSE; Start 02/18/17 at 15:00 Glucagon (Glucagen) 1 mg Q15M PRN IM DECREASED GLUCOSE; Start 02/18/17 at 15:00 Glucose (Glutose) 15 gm Q15M PRN BUCCAL DECREASED GLUCOSE; Start 02/18/17 at 15 :00 Nifedipine (Procardia Xl) 30 mg BID PO Last administered on 03/02/17 08:30; Admin Dose 30 MG; Start 02/18/17 at 21:00 Carvedilol (Coreg) 12.5 mg BID PO Last administered on 03/02/17 08:29; Admin Dose 12.5 MG; Start 02/22/17 at 21:00 Diagnostic Test (Pha) (Accu-Chek) 1 ea BID XX Last administered on 03/02/17 07:30; Admin Dose 1 EA; Start 02/22/17 at 21:00 Epoetin Keven (Epogen (Esrd)) 6,000 units MoWeFr@17 IV Last administered on 16:39; Admin Dose 6,000 UNITS; Start 02/22/17 at 17:00 Bethanechol Chloride (Urecholine) 25 mg TID PO Last administered on 03/02/17 08:31; Admin Dose 25 MG; Start 03/01/17 at 21:00 HEATH MAYBERRY NP Mar 02, 2017 13:05
[2017-03-02 20:00] VITALS: BP 138/65; RESP 18
[2017-03-02] MEDS: ATORVASTATIN 10 MG TAB PO SCH (21:24)
[2017-03-02] MEDS: TAMSULOSIN (SR) 0.4 MG CAP PO SCH (21:26)
[2017-03-02] MEDS: ROPINIROLE 0.25 MG TAB PO SCH (21:26)
[2017-03-03] VITALS (10 sets, daily range): BP systolic 88–136; BP diastolic 52–70; PULSE 80–85; RESP 18
--- NOTE | 2017-03-03 03:15 | PN ---
DATE: 03/02/2017 SUBJECTIVE: Incomplete bladder emptying. The patient has been on dialysis and he is still making s ome urine, and yet he does not empty his bladder completely. He is, however, comfortable and denies having any pain at the present, and he has been voiding in the bed. He states that he does not fee l when the urine comes out. 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 The jef silver also has been on dialysis and he is due to have dialysis tomorrow. OBJECTIVE: VITAL SIGNS: His temperature is 98.8, pulse 72, respirations 18, blood pressure 131/61. ABDOMEN: Soft. There is no abdominal mass palpable or tenderness. LABORATORY DATA: His blood sugar is about 93 today. He is incontinent and when the nurses checked his postvoid residual with a bladder scan, there was only 156 mL. IMPRESSION: Urinary incontinence, but there is no urinary retention. PLAN: To continue to monitor his postvoid residual and do a straight cath if the postvoid residual is over 300 mL. Dictated By: VANE PAYTON MD BB/CORA Conf#: [id number] DID#: [id number] CC: JESSICA ADAMS MD;*EndCC*
[2017-03-03] MEDS: PRASUGREL HYDROCHLORIDE 10 MG TABLET PO SCH (08:41)
[2017-03-03] MEDS: BETHANECHOL 25 MG TAB PO SCH ×3 (08:41→20:59)
[2017-03-03] MEDS: ACCU-CHEK XX SCH ×2 (08:41→21:06)
[2017-03-03] MEDS: POLYETHYLENE GLYCOL 17 GM PACKET PO SCH ×2 (08:41→20:59)
[2017-03-03] MEDS: FEBUXOSTAT 40 MG TABLET PO SCH (08:42)
[2017-03-03] MEDS: MULTIVIT/CA CARB/B CMPLX/FA TAB PO SCH (08:42)
[2017-03-03] MEDS: LINAGLIPTIN 5 MG TABLET PO SCH (08:42)
[2017-03-03] MEDS: NICOTINE (14 MG/24 HR) PATCH TRANSDERM SCH (08:42)
[2017-03-03] MEDS: SEVELAMER 800 MG TAB PO SCH ×3 (08:42→18:33)
[2017-03-03] MEDS: NIFEdipine (XL) 30 MG TAB PO SCH ×2 (08:43→20:59)
[2017-03-03] MEDS: DOCUSATE SODIUM 100 MG CAP PO SCH ×2 (08:43→20:57)
[2017-03-03] MEDS: ISOSORBIDE MONONITRATE(SR)60 MG TAB PO SCH (08:43)
[2017-03-03] MEDS: FAMOTIDINE 20 MG TAB PO SCH (08:43)
[2017-03-03] MEDS: FISH OIL 1,000 MG CAP PO SCH ×2 (08:43→20:57)
[2017-03-03] MEDS: BALSAM PERU/CASTOR OIL 60 GM TUBE TOP SCH ×2 (08:45→21:00)
--- NOTE | 2017-03-03 09:38 | PN ---
DATE: 03/03/2017 SUBJECTIVE: The patient is stable. No events overnight. No fevers, chills, nausea, vomiting. The patient is pending hemodialysis today. OBJECTIVE: VITAL SIGNS: Blood pressure is 128/70, respiration 18, pulse 70, temperature 97.8. HEENT: Head is normocephalic. NECK: Supple. HEART: Regular rate. LUNGS: Show diminished breath sounds at the base. ABDOMEN: Soft, nontender to palpation without rebound or guarding. EXTREMITIES: Negative for clubbing, cyanosis, edema. DERMATOLOGIC: No rashes. MUSCULOSKELETAL: No joint effusions. NEUROLOGIC: No change in exam. MEDICATIONS: Have been reviewed. LABORATORY DATA: Has been reviewed. ASSESSMENT AND PLAN: 1. End-stage renal disease. Plan for hemodialysis today. 2. Anemia. Monitor hemoglobin and hematocrit levels. We will continue Epogen. 3. Mineral bone disorder. Monitor calcium and phosphorus levels. 4. Congestive heart failure. Continue medical management. 5. Hypertension. Continue current blood pressure regimen. 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 Continue physical the rapy. 7. Diabetes. Continue Accu-Cheks and insulin sliding scale. Dictated By: CORIE MALIK/CORA Conf#: [id number] DID#: [id number]
--- NOTE | 2017-03-03 11:33 | CONS ---
Date/Time of Note Date/Time of Note DATE: 03/03/17 TIME: 11:32 Assessment/Plan Assessment/Plan Chief Complaint/Hosp Course 81-year-old male, who was transferred to rehabilitation unit for further rehabilitation following an onset of lower extremity weakness. 1. 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 -Status post treatment with pulse dose steroids followed by IVIG. -Continue PT/OT -Follow-up with outpatient studies EMG/NCV to evaluate for possible demyelinating polyneuropathy such as CIDP 2. 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 Hypertension. Now with good control -Continue current antihypertensives. Will monitor blood pressure closely and will adjust as indicated. 4. End-stage renal disease, on hemodialysis. -Follow-up with nephrology recommendations. 5. Status post sepsis bacteremia with Multidrug resistant urinary tract infection. Repeat Urine CS negative. 6. Coronary artery disease. -Continue home medications. 7. Dyslipidemia. -Continue statin/fish oil. 8. Anemia of chronic kidney disease. -HH stable. Will monitor. 9. Type 2 diabetes mellitus. Latest A1c 4.9 with good glycemic control. -Stable. No need for insulin in-house. Continue Tradjenta. -Accu-Cheks twice daily and carbohydrate controlled diet. 10. Benign prostatic hypertrophy -Continue Flomax. 11. Urinary retention, likely secondary to neurogenic bladder. Resolved. -urology evaluation appreciated. on Urecholine 12. Obesity. -Weight reduction advised 13. Nicotine abuse. -Cessation advised. Prophylaxis: Ambulation/SCDs Patient was seen in collaboration with . Problems: Consultation Date/Type/Reason Admit Date/Time Feb 17, 2017 at 20:40 Initial Consult Date 02/22/17 Type of Consultation: neph Referring Provider: MAURO SPENCER MD, [facility] 24 HR Interval Summary Free Text/Dictation Patient with no acute overnight episodes. There is a concern for a new circular lesion on coccyx area. Patient with fair tolerance to physical therapy up to 4-5 feet. Exam/Review of Systems Vital Signs Vitals Vital Signs Date Time Temp Pulse Resp B/P Pulse Ox O2 Delivery O2 Flow Rate FiO2 03/03/17 07:00 98.8 74 18 134/60 94 03/02/17 07:30 Room Air Intake and Output 03/02/17 03/02/17 03/03/17 15:00 23:00 07:00 Intake Total 1000 ml 240 ml Output Total 150 ml 400 ml Balance -150 ml 600 ml 240 ml Exam General: Elderly male, not in any acute distress . HEENT: Normocephalic, Atraumatic, No laceration or hematoma; Eyes: PEERL, Conjunctiva clear, Anicteric sclera Neck: Supple without any lymphadenopathy, nontender, no JVD, no carotid bruits, trachea midline, no thyromegaly Cardiac: S1, S2 auscultated, regular rhythm and rate, no mumurs or gallop Pulmonary: Normal respiratory effort. Chest clear to auscultation bilaterally, no adventitious breath sounds GI: Abdomen normal to inspection. Soft, non tender, non- distended, no masses, no rebound tenderness or guarding. Bowel sounds active on all four quadrants Genitourinary: Deferred Extremities: With severe weakness to bilateral lower extremities. No cyanosis, clubbing, or edema. Pulses [2+] bilaterally. No focal weakness appreciated. Neurologic: Alert to person, place, time, and situation. Affect appropriate, intact sensation. Skin: Pressure ulcers present. Access: Left upper arm AV shunt. Results Results 24 hrs Laboratory Tests Test 03/02/17 21:32 03/03/17 08:14 Bedside Glucose 111 92 Medications Medications Current Medications Polyethylene Glycol (Miralax) 17 gm BID PO Last administered on 03/03/17 08: 41; Admin Dose 17 GM; Start 02/17/17 at 23:00 Prasugrel (Effient) 10 mg DAILY PO Last administered on 03/03/17 08:41; Admin Dose 10 MG; Start 02/18/17 at 09:00 Ropinirole HCl (Requip) 0.25 mg HS PO Last administered on 03/02/17 21:26; Admin Dose 0.25 MG; Start 02/17/17 at 23:00 Tamsulosin HCl (Flomax) 0.4 mg DAILY@21 PO Last administered on 03/02/17 21: 26; Admin Dose 0.4 MG; Start 02/17/17 at 23:00 Zolpidem Tartrate (Ambien) 10 mg HS PRN PO INSOMNIA Last administered on 00:24; Admin Dose 10 MG; Start 02/17/17 at 23:15 Multivit/Ca Carb/ B Cmplx/FA/Prenat (Paulina-Chrissy) 1 tab DAILY PO Last administered on 03/03/17 08:42; Admin Dose 1 TAB; Start 02/18/17 at 09:00 Nicotine (Nicoderm 14 Mg/ 24hr) 1 patch DAILY TRANSDERM Last administered on 08:42; Admin Dose 1 PATCH; Start 02/18/17 at 09:00 Hydralazine HCl (Apresoline) 50 mg BID PO Last administered on 03/03/17 08:43 ; Admin Dose 50 MG; Start 02/17/17 at 23:00 Acetaminophen/ Hydrocodone Bitart ([place] (5/325)) 2 tab Q4H PRN PO PAIN Last administered on 02/19/17 08:38; Admin Dose 2 TAB; Start 02/17/17 at 23:30 Acetaminophen/ Hydrocodone Bitart ([place] (5/325)) 1 tab Q4H PRN PO PAIN; Start 02/17/17 at 23:30 Isosorbide Mononitrate (Imdur) 60 mg DAILY PO Last administered on 03/03/17 08:43; Admin Dose 60 MG; Start 02/18/17 at 09:00 Fish Oil (Fish Oil) 1,000 mg BID PO Last administered on 03/03/17 08:43; Admin Dose 1,000 MG; Start 02/17/17 at 23:15 Docusate Sodium (Colace) 100 mg BID PO Last administered on 03/03/17 08:43; Admin Dose 100 MG; Start 02/17/17 at 23:15 Ergocalciferol (Drisdol) 50,000 unit Tu@09 PO Last administered on 03/02/17 09:00; Admin Dose 50,000 UNIT; Start 02/23/17 at 09:00 Famotidine (Pepcid) 20 mg DAILY PO Last administered on 03/03/17 08:43; Admin Dose 20 MG; Start 02/18/17 at 09:00 Febuxostat (Uloric) 40 mg DAILY PO Last administered on 03/03/17 08:42; Admin Dose 40 MG; Start 02/18/17 at 09:00 Acetaminophen (Tylenol Tab) 650 mg Q6H PRN PO PAIN AND OR ELEVATED TEMP; Start 02/17/17 at 23:15 Atorvastatin Calcium (Lipitor) 10 mg DAILY@21 PO Last administered on 21:24; Admin Dose 10 MG; Start 02/17/17 at 23:15 Bisacodyl (Dulcolax) 10 mg DAILY PRN PO CONSTIPATION; Start 02/17/17 at 23:30 Clonidine (Catapres) 0.1 mg TID PRN PO SBP ABOVE 160mmHg Last administered on 03/01/17 02:21; Admin Dose 0.1 MG; Start 02/17/17 at 23:30 Linagliptin (Tradjenta) 5 mg DAILY PO Last administered on 03/03/17 08:42; Admin Dose 5 MG; Start 02/18/17 at 14:36 Miscellaneous Information 1 ea NOTE XX ; Start 02/18/17 at 15:00 Glucose (Glutose) 15 gm Q15M PRN PO DECREASED GLUCOSE; Start 02/18/17 at 15:00 Glucose (Glutose) 22.5 gm Q15M PRN PO DECREASED GLUCOSE; Start 02/18/17 at 15: 00 Dextrose (D50w Syringe) 25 ml Q15M PRN IV DECREASED GLUCOSE; Start 02/18/17 at 15:00 Dextrose (D50w Syringe) 50 ml Q15M PRN IV DECREASED GLUCOSE; Start 02/18/17 at 15:00 Glucagon (Glucagen) 1 mg Q15M PRN IM DECREASED GLUCOSE; Start 02/18/17 at 15:00 Glucose (Glutose) 15 gm Q15M PRN BUCCAL DECREASED GLUCOSE; Start 02/18/17 at 15 :00 Nifedipine (Procardia Xl) 30 mg BID PO Last administered on 03/03/17 08:43; Admin Dose 30 MG; Start 02/18/17 at 21:00 Carvedilol (Coreg) 12.5 mg BID PO Last administered on 03/03/17 08:44; Admin Dose 12.5 MG; Start 02/22/17 at 21:00 Diagnostic Test (Pha) (Accu-Chek) 1 ea BID XX Last administered on 03/03/17 08:41; Admin Dose 1 EA; Start 02/22/17 at 21:00 Epoetin Keven (Epogen (Esrd)) 6,000 units MoWeFr@17 IV Last administered on 16:39; Admin Dose 6,000 UNITS; Start 02/22/17 at 17:00 Bethanechol Chloride (Urecholine) 25 mg TID PO Last administered on 03/03/17 08:41; Admin Dose 25 MG; Start 03/01/17 at 21:00 HEATH MAYBERRY NP Mar 03, 2017 11:33
--- NOTE | 2017-03-03 12:48 | CONS ---
Date/Time of Note Date/Time of Note DATE: 03/03/17 TIME: 12:47 Consult Date/Type/Reason Admit Date/Time Feb 17, 2017 at 20:40 Type of Consultation: neph Ordering Provider: MAURO SPENCER MD, [facility] Subjective No new complaints Objective pulm-cta min assist transfer Vital Signs Date Time Temp Pulse Resp B/P Pulse Ox O2 Delivery O2 Flow Rate FiO2 03/03/17 07:00 98.8 74 18 134/60 94 03/02/17 07:30 Room Air Intake and Output 03/02/17 03/02/17 03/03/17 15:00 23:00 07:00 Intake Total 1000 ml 240 ml Output Total 150 ml 400 ml Balance -150 ml 600 ml 240 ml Results/Medications Results 24 hrs Laboratory Tests Test 03/02/17 21:32 03/03/17 08:14 Bedside Glucose 111 92 Medications Current Medications Polyethylene Glycol (Miralax) 17 gm BID PO Last administered on 03/03/17 08: 41; Admin Dose 17 GM; Start 02/17/17 at 23:00 Prasugrel (Effient) 10 mg DAILY PO Last administered on 03/03/17 08:41; Admin Dose 10 MG; Start 02/18/17 at 09:00 Ropinirole HCl (Requip) 0.25 mg HS PO Last administered on 03/02/17 21:26; Admin Dose 0.25 MG; Start 02/17/17 at 23:00 Tamsulosin HCl (Flomax) 0.4 mg DAILY@21 PO Last administered on 03/02/17 21: 26; Admin Dose 0.4 MG; Start 02/17/17 at 23:00 Zolpidem Tartrate (Ambien) 10 mg HS PRN PO INSOMNIA Last administered on 00:24; Admin Dose 10 MG; Start 02/17/17 at 23:15 Multivit/Ca Carb/ B Cmplx/FA/Prenat (Paulina-Chrissy) 1 tab DAILY PO Last administered on 03/03/17 08:42; Admin Dose 1 TAB; Start 02/18/17 at 09:00 Nicotine (Nicoderm 14 Mg/ 24hr) 1 patch DAILY TRANSDERM Last administered on 08:42; Admin Dose 1 PATCH; Start 02/18/17 at 09:00 Hydralazine HCl (Apresoline) 50 mg BID PO Last administered on 03/03/17 08:43 ; Admin Dose 50 MG; Start 02/17/17 at 23:00 Acetaminophen/ Hydrocodone Bitart ([place] (5/325)) 2 tab Q4H PRN PO PAIN Last administered on 02/19/17 08:38; Admin Dose 2 TAB; Start 02/17/17 at 23:30 Acetaminophen/ Hydrocodone Bitart ([place] (5/325)) 1 tab Q4H PRN PO PAIN; Start 02/17/17 at 23:30 Isosorbide Mononitrate (Imdur) 60 mg DAILY PO Last administered on 03/03/17 08:43; Admin Dose 60 MG; Start 02/18/17 at 09:00 Fish Oil (Fish Oil) 1,000 mg BID PO Last administered on 03/03/17 08:43; Admin Dose 1,000 MG; Start 02/17/17 at 23:15 Docusate Sodium (Colace) 100 mg BID PO Last administered on 03/03/17 08:43; Admin Dose 100 MG; Start 02/17/17 at 23:15 Ergocalciferol (Drisdol) 50,000 unit Tu@09 PO Last administered on 03/02/17 09:00; Admin Dose 50,000 UNIT; Start 02/23/17 at 09:00 Famotidine (Pepcid) 20 mg DAILY PO Last administered on 03/03/17 08:43; Admin Dose 20 MG; Start 02/18/17 at 09:00 Febuxostat (Uloric) 40 mg DAILY PO Last administered on 03/03/17 08:42; Admin Dose 40 MG; Start 02/18/17 at 09:00 Acetaminophen (Tylenol Tab) 650 mg Q6H PRN PO PAIN AND OR ELEVATED TEMP; Start 02/17/17 at 23:15 Atorvastatin Calcium (Lipitor) 10 mg DAILY@21 PO Last administered on 21:24; Admin Dose 10 MG; Start 02/17/17 at 23:15 Bisacodyl (Dulcolax) 10 mg DAILY PRN PO CONSTIPATION; Start 02/17/17 at 23:30 Clonidine (Catapres) 0.1 mg TID PRN PO SBP ABOVE 160mmHg Last administered on 03/01/17 02:21; Admin Dose 0.1 MG; Start 02/17/17 at 23:30 Linagliptin (Tradjenta) 5 mg DAILY PO Last administered on 03/03/17 08:42; Admin Dose 5 MG; Start 02/18/17 at 14:36 Miscellaneous Information 1 ea NOTE XX ; Start 02/18/17 at 15:00 Glucose (Glutose) 15 gm Q15M PRN PO DECREASED GLUCOSE; Start 02/18/17 at 15:00 Glucose (Glutose) 22.5 gm Q15M PRN PO DECREASED GLUCOSE; Start 02/18/17 at 15: 00 Dextrose (D50w Syringe) 25 ml Q15M PRN IV DECREASED GLUCOSE; Start 02/18/17 at 15:00 Dextrose (D50w Syringe) 50 ml Q15M PRN IV DECREASED GLUCOSE; Start 02/18/17 at 15:00 Glucagon (Glucagen) 1 mg Q15M PRN IM DECREASED GLUCOSE; Start 02/18/17 at 15:00 Glucose (Glutose) 15 gm Q15M PRN BUCCAL DECREASED GLUCOSE; Start 02/18/17 at 15 :00 Nifedipine (Procardia Xl) 30 mg BID PO Last administered on 03/03/17 08:43; Admin Dose 30 MG; Start 02/18/17 at 21:00 Carvedilol (Coreg) 12.5 mg BID PO Last administered on 03/03/17 08:44; Admin Dose 12.5 MG; Start 02/22/17 at 21:00 Diagnostic Test (Pha) (Accu-Chek) 1 ea BID XX Last administered on 03/03/17 08:41; Admin Dose 1 EA; Start 02/22/17 at 21:00 Epoetin Kevne (Epogen (Esrd)) 6,000 units MoWeFr@17 IV Last administered on 16:39; Admin Dose 6,000 UNITS; Start 02/22/17 at 17:00 Bethanechol Chloride (Urecholine) 25 mg TID PO Last administered on 03/03/17 12:34; Admin Dose 25 MG; Start 03/01/17 at 21:00 Assessment/Plan Additional Assessment/Plan Rehab-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 Urinary tract infection. Congestive heart failure. Hypertension. JESSICA ADAMS MD Mar 03, 2017 12:47
[2017-03-03] MEDS: EPOETIN 3000 UNITS/1 ML INJ (ESRD) IV SCH (16:20)
[2017-03-03] MEDS: ATORVASTATIN 10 MG TAB PO SCH (20:57)
[2017-03-03] MEDS: ROPINIROLE 0.25 MG TAB PO SCH (20:57)
[2017-03-03] MEDS: TAMSULOSIN (SR) 0.4 MG CAP PO SCH (20:59)
[2017-03-04 02:00] VITALS: BP 146/66; RESP 18
--- NOTE | 2017-03-04 02:32 | PN ---
DATE: 03/03/2017 SUBJECTIVE: Urinary incontinence and urinary renal failure on hemodialysis. OBJECTIVE: VITAL SIGNS: His temperature is 98.8 and the pulse is 80, respiration is 16 and the blood pressure is 134/60. HISTORY OF PRESENT ILLNESS: The patient voids in the absorbent towels and the nurses check his post void residual with a bladder scan and the last bladder scan showed 189 mL. LABORATORY DATA: His last blood sugar is 92. IMPRESSION: No urinary retention. He does urinate in the towels that he has in his bed, and as luis g as he has no urinary retention, we do not have to do any catheterization. The urine culture that was done on 02/18/2017 showed no growth in 48 hours. Dictated By: VANE JOHNSON/CORA Conf#: [id number] DID#: [id number]
[2017-03-04 07:30] VITALS: BP 147/68; RESP 20
[2017-03-04] MEDS: SEVELAMER 800 MG TAB PO SCH ×3 (07:35→17:47)
[2017-03-04] MEDS: MULTIVIT/CA CARB/B CMPLX/FA TAB PO SCH (09:43)
[2017-03-04] MEDS: FISH OIL 1,000 MG CAP PO SCH ×2 (09:43→21:22)
[2017-03-04] MEDS: POLYETHYLENE GLYCOL 17 GM PACKET PO SCH ×2 (09:43→21:21)
[2017-03-04] MEDS: ISOSORBIDE MONONITRATE(SR)60 MG TAB PO SCH (09:43)
[2017-03-04] MEDS: FAMOTIDINE 20 MG TAB PO SCH (09:44)
[2017-03-04] MEDS: DOCUSATE SODIUM 100 MG CAP PO SCH ×2 (09:44→21:23)
[2017-03-04] MEDS: NICOTINE (14 MG/24 HR) PATCH TRANSDERM SCH (09:44)
[2017-03-04] MEDS: LINAGLIPTIN 5 MG TABLET PO SCH (09:44)
[2017-03-04] MEDS: NIFEdipine (XL) 30 MG TAB PO SCH ×2 (09:44→21:23)
[2017-03-04] MEDS: BETHANECHOL 25 MG TAB PO SCH ×3 (09:44→21:23)
[2017-03-04] MEDS: BALSAM PERU/CASTOR OIL 60 GM TUBE TOP SCH ×2 (09:45→21:21)
[2017-03-04] MEDS: ACCU-CHEK XX SCH ×2 (09:45→21:23)
[2017-03-04] MEDS: FEBUXOSTAT 40 MG TABLET PO SCH (09:52)
[2017-03-04] MEDS: PRASUGREL HYDROCHLORIDE 10 MG TABLET PO SCH (09:52)
--- NOTE | 2017-03-04 11:11 | PN ---
DATE: 03/04/2017 SUBJECTIVE: The patient is stable. No events overnight. No fevers, chills, nausea, vomiting, no s hortness of breath. OBJECTIVE: VITAL SIGNS: Blood pressure 147/68, pulse 73, respirations 20, temperature 98.7. HEENT: Head is normocephalic. NECK: Supple. HEART: Regular rate. LUNGS: Show diminished breath sounds at base. ABDOMEN: Soft, nontender to palpation. No rebound or guarding. EXTREMITIES: Negative for clubbing, cyanosis, edema. DERMATOLOGIC: No rashes. MUSCULOSKELETAL: No joint effusions. NEUROLOGIC: No change in exam. MEDICATIONS: Have been reviewed. LABORATORY DATA: Has been reviewed. ASSESSMENT AND PLAN: 1. End-stage renal disease. Plan for hemodialysis tomorrow. 2. Anemia. Monitor hemoglobin and hematocrit levels. Continue Epogen. 3. Mineral bone disorder. Monitor calcium and phosphorus levels. 4. Congestive heart failure. Continue current medical management. 5. Hypertension. Continue current blood pressure regimen. 6. Status post encephalomyelitis. The patient is status post IVIG, continue physical therapy. 7. Diabetes. Continue current insulin regimen. Dictated By: CORIE MALIK/NTS Conf#: [id number] DID#: [id number]
--- NOTE | 2017-03-04 11:38 | CONS ---
Date/Time of Note Date/Time of Note DATE: 03/04/17 TIME: 11:36 Assessment/Plan Assessment/Plan Chief Complaint/Hosp Course 81-year-old male, who was transferred to rehabilitation unit for further rehabilitation following an onset of lower extremity weakness. 1. 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 -Status post treatment with pulse dose steroids followed by IVIG. -Continue PT/OT -Follow-up with outpatient studies EMG/NCV to evaluate for possible demyelinating polyneuropathy such as CIDP 2. 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 Hypertension. Now with good control -Continue current antihypertensives. Will monitor blood pressure closely and will adjust as indicated. 4. End-stage renal disease, on hemodialysis. -Follow-up with nephrology recommendations. 5. Status post sepsis bacteremia with Multidrug resistant urinary tract infection. Repeat Urine CS negative. 6. Coronary artery disease. -Continue home medications. 7. Dyslipidemia. -Continue statin/fish oil. 8. Anemia of chronic kidney disease. -HH stable. On epogen. Will monitor. 9. Type 2 diabetes mellitus. Latest A1c 4.9 with good glycemic control. -Stable. No need for insulin in-house. Continue Tradjenta. -Accu-Cheks twice daily and carbohydrate controlled diet. 10. Benign prostatic hypertrophy -Continue Flomax. 11. Urinary retention, likely secondary to neurogenic bladder. Resolved. -urology evaluation appreciated. on Urecholine 12. Obesity. -Weight reduction advised 13. Nicotine abuse. -Cessation advised. Prophylaxis: Ambulation/SCDs Disposition: Based on patient's rehab improvement, he would possibly benefit from further rehabilitation at the [facility] facility. Patient was seen in collaboration with . Problems: Consultation Date/Type/Reason Admit Date/Time Feb 17, 2017 at 20:40 Initial Consult Date 02/22/17 Type of Consultation: neph Referring Provider: MAURO SPENCER MD, [facility] 24 HR Interval Summary Free Text/Dictation Patient with no acute episodes. He has been participating physical therapy with fair tolerance. Exam/Review of Systems Vital Signs Vitals Vital Signs Date Time Temp Pulse Resp B/P Pulse Ox O2 Delivery O2 Flow Rate FiO2 03/04/17 07:30 98.7 73 20 147/68 93 03/02/17 07:30 Room Air Intake and Output 03/03/17 03/03/17 03/04/17 15:00 23:00 07:00 Intake Total 1200 ml 1500 ml Output Total 2300 ml 700 ml Balance -1100 ml 800 ml Exam General: Elderly male, not in any acute distress . HEENT: Normocephalic, Atraumatic, No laceration or hematoma; Eyes: PEERL, Conjunctiva clear, Anicteric sclera Neck: Supple without any lymphadenopathy, nontender, no JVD, no carotid bruits, trachea midline, no thyromegaly Cardiac: S1, S2 auscultated, regular rhythm and rate, no mumurs or gallop Pulmonary: Normal respiratory effort. Chest clear to auscultation bilaterally, no adventitious breath sounds GI: Abdomen normal to inspection. Soft, non tender, non- distended, no masses, no rebound tenderness or guarding. Bowel sounds active on all four quadrants Genitourinary: Deferred Extremities: With severe weakness to bilateral lower extremities. No cyanosis, clubbing, or edema. Pulses [2+] bilaterally. No focal weakness appreciated. Neurologic: Alert to person, place, time, and situation. Affect appropriate, intact sensation. Skin: Pressure ulcers present. Access: Left upper arm AV shunt. Results Results 24 hrs Laboratory Tests Test 03/03/17 20:11 Bedside Glucose 145 Medications Medications Current Medications Polyethylene Glycol (Miralax) 17 gm BID PO Last administered on 03/04/17 09: 43; Admin Dose 17 GM; Start 02/17/17 at 23:00 Prasugrel (Effient) 10 mg DAILY PO Last administered on 03/04/17 09:52; Admin Dose 10 MG; Start 02/18/17 at 09:00 Ropinirole HCl (Requip) 0.25 mg HS PO Last administered on 03/03/17 20:57; Admin Dose 0.25 MG; Start 02/17/17 at 23:00 Tamsulosin HCl (Flomax) 0.4 mg DAILY@21 PO Last administered on 03/03/17 20: 59; Admin Dose 0.4 MG; Start 02/17/17 at 23:00 Zolpidem Tartrate (Ambien) 10 mg HS PRN PO INSOMNIA Last administered on 00:24; Admin Dose 10 MG; Start 02/17/17 at 23:15 Multivit/Ca Carb/ B Cmplx/FA/Prenat (Paulina-Chrissy) 1 tab DAILY PO Last administered on 03/04/17 09:43; Admin Dose 1 TAB; Start 02/18/17 at 09:00 Nicotine (Nicoderm 14 Mg/ 24hr) 1 patch DAILY TRANSDERM Last administered on 09:44; Admin Dose 1 PATCH; Start 02/18/17 at 09:00 Hydralazine HCl (Apresoline) 50 mg BID PO Last administered on 03/04/17 09:44 ; Admin Dose 50 MG; Start 02/17/17 at 23:00 Acetaminophen/ Hydrocodone Bitart ([place] (5/325)) 2 tab Q4H PRN PO PAIN Last administered on 02/19/17 08:38; Admin Dose 2 TAB; Start 02/17/17 at 23:30 Acetaminophen/ Hydrocodone Bitart ([place] (5/325)) 1 tab Q4H PRN PO PAIN; Start 02/17/17 at 23:30 Isosorbide Mononitrate (Imdur) 60 mg DAILY PO Last administered on 03/04/17 09:43; Admin Dose 60 MG; Start 02/18/17 at 09:00 Fish Oil (Fish Oil) 1,000 mg BID PO Last administered on 03/04/17 09:43; Admin Dose 1,000 MG; Start 02/17/17 at 23:15 Docusate Sodium (Colace) 100 mg BID PO Last administered on 03/04/17 09:44; Admin Dose 100 MG; Start 02/17/17 at 23:15 Ergocalciferol (Drisdol) 50,000 unit Tu@09 PO Last administered on 03/02/17 09:00; Admin Dose 50,000 UNIT; Start 02/23/17 at 09:00 Famotidine (Pepcid) 20 mg DAILY PO Last administered on 03/04/17 09:44; Admin Dose 20 MG; Start 02/18/17 at 09:00 Febuxostat (Uloric) 40 mg DAILY PO Last administered on 03/04/17 09:52; Admin Dose 40 MG; Start 02/18/17 at 09:00 Acetaminophen (Tylenol Tab) 650 mg Q6H PRN PO PAIN AND OR ELEVATED TEMP; Start 02/17/17 at 23:15 Atorvastatin Calcium (Lipitor) 10 mg DAILY@21 PO Last administered on 20:57; Admin Dose 10 MG; Start 02/17/17 at 23:15 Bisacodyl (Dulcolax) 10 mg DAILY PRN PO CONSTIPATION; Start 02/17/17 at 23:30 Clonidine (Catapres) 0.1 mg TID PRN PO SBP ABOVE 160mmHg Last administered on 03/01/17 02:21; Admin Dose 0.1 MG; Start 02/17/17 at 23:30 Linagliptin (Tradjenta) 5 mg DAILY PO Last administered on 03/04/17 09:44; Admin Dose 5 MG; Start 02/18/17 at 14:36 Miscellaneous Information 1 ea NOTE XX ; Start 02/18/17 at 15:00 Glucose (Glutose) 15 gm Q15M PRN PO DECREASED GLUCOSE; Start 02/18/17 at 15:00 Glucose (Glutose) 22.5 gm Q15M PRN PO DECREASED GLUCOSE; Start 02/18/17 at 15: 00 Dextrose (D50w Syringe) 25 ml Q15M PRN IV DECREASED GLUCOSE; Start 02/18/17 at 15:00 Dextrose (D50w Syringe) 50 ml Q15M PRN IV DECREASED GLUCOSE; Start 02/18/17 at 15:00 Glucagon (Glucagen) 1 mg Q15M PRN IM DECREASED GLUCOSE; Start 02/18/17 at 15:00 Glucose (Glutose) 15 gm Q15M PRN BUCCAL DECREASED GLUCOSE; Start 02/18/17 at 15 :00 Nifedipine (Procardia Xl) 30 mg BID PO Last administered on 03/04/17 09:44; Admin Dose 30 MG; Start 02/18/17 at 21:00 Carvedilol (Coreg) 12.5 mg BID PO Last administered on 03/04/17 09:43; Admin Dose 12.5 MG; Start 02/22/17 at 21:00 Diagnostic Test (Pha) (Accu-Chek) 1 ea BID XX Last administered on 03/04/17 09:45; Admin Dose 1 EA; Start 02/22/17 at 21:00 Epoetin Keven (Epogen (Esrd)) 6,000 units MoWeFr@17 IV Last administered on 16:20; Admin Dose 6,000 UNITS; Start 02/22/17 at 17:00 Bethanechol Chloride (Urecholine) 25 mg TID PO Last administered on 03/04/17 09:44; Admin Dose 25 MG; Start 03/01/17 at 21:00 HEATH MAYBERRY NP Mar 04, 2017 11:38
--- NOTE | 2017-03-04 13:13 | CONS ---
Date/Time of Note Date/Time of Note DATE: 03/04/17 TIME: 13:12 Consult Date/Type/Reason Admit Date/Time Feb 17, 2017 at 20:40 Type of Consultation: neph Ordering Provider: MAURO SPENCER MD, [facility] Subjective Depressed because a family member just Objective min assist Vital Signs Date Time Temp Pulse Resp B/P Pulse Ox O2 Delivery O2 Flow Rate FiO2 03/04/17 07:30 98.7 73 20 147/68 93 03/02/17 07:30 Room Air Intake and Output 03/03/17 03/03/17 03/04/17 15:00 23:00 07:00 Intake Total 1200 ml 1500 ml Output Total 2300 ml 700 ml Balance -1100 ml 800 ml Results/Medications Results 24 hrs Laboratory Tests Test 03/03/17 20:11 Bedside Glucose 145 Medications Current Medications Polyethylene Glycol (Miralax) 17 gm BID PO Last administered on 03/04/17 09: 43; Admin Dose 17 GM; Start 02/17/17 at 23:00 Prasugrel (Effient) 10 mg DAILY PO Last administered on 03/04/17 09:52; Admin Dose 10 MG; Start 02/18/17 at 09:00 Ropinirole HCl (Requip) 0.25 mg HS PO Last administered on 03/03/17 20:57; Admin Dose 0.25 MG; Start 02/17/17 at 23:00 Tamsulosin HCl (Flomax) 0.4 mg DAILY@21 PO Last administered on 03/03/17 20: 59; Admin Dose 0.4 MG; Start 02/17/17 at 23:00 Zolpidem Tartrate (Ambien) 10 mg HS PRN PO INSOMNIA Last administered on 00:24; Admin Dose 10 MG; Start 02/17/17 at 23:15 Multivit/Ca Carb/ B Cmplx/FA/Prenat (Paulina-Chrissy) 1 tab DAILY PO Last administered on 03/04/17 09:43; Admin Dose 1 TAB; Start 02/18/17 at 09:00 Nicotine (Nicoderm 14 Mg/ 24hr) 1 patch DAILY TRANSDERM Last administered on 09:44; Admin Dose 1 PATCH; Start 02/18/17 at 09:00 Hydralazine HCl (Apresoline) 50 mg BID PO Last administered on 03/04/17 09:44 ; Admin Dose 50 MG; Start 02/17/17 at 23:00 Acetaminophen/ Hydrocodone Bitart ([place] (5/325)) 2 tab Q4H PRN PO PAIN Last administered on 02/19/17 08:38; Admin Dose 2 TAB; Start 02/17/17 at 23:30 Acetaminophen/ Hydrocodone Bitart ([place] (5/325)) 1 tab Q4H PRN PO PAIN; Start 02/17/17 at 23:30 Isosorbide Mononitrate (Imdur) 60 mg DAILY PO Last administered on 03/04/17 09:43; Admin Dose 60 MG; Start 02/18/17 at 09:00 Fish Oil (Fish Oil) 1,000 mg BID PO Last administered on 03/04/17 09:43; Admin Dose 1,000 MG; Start 02/17/17 at 23:15 Docusate Sodium (Colace) 100 mg BID PO Last administered on 03/04/17 09:44; Admin Dose 100 MG; Start 02/17/17 at 23:15 Ergocalciferol (Drisdol) 50,000 unit Tu@09 PO Last administered on 03/02/17 09:00; Admin Dose 50,000 UNIT; Start 02/23/17 at 09:00 Famotidine (Pepcid) 20 mg DAILY PO Last administered on 03/04/17 09:44; Admin Dose 20 MG; Start 02/18/17 at 09:00 Febuxostat (Uloric) 40 mg DAILY PO Last administered on 03/04/17 09:52; Admin Dose 40 MG; Start 02/18/17 at 09:00 Acetaminophen (Tylenol Tab) 650 mg Q6H PRN PO PAIN AND OR ELEVATED TEMP; Start 02/17/17 at 23:15 Atorvastatin Calcium (Lipitor) 10 mg DAILY@21 PO Last administered on 20:57; Admin Dose 10 MG; Start 02/17/17 at 23:15 Bisacodyl (Dulcolax) 10 mg DAILY PRN PO CONSTIPATION; Start 02/17/17 at 23:30 Clonidine (Catapres) 0.1 mg TID PRN PO SBP ABOVE 160mmHg Last administered on 03/01/17 02:21; Admin Dose 0.1 MG; Start 02/17/17 at 23:30 Linagliptin (Tradjenta) 5 mg DAILY PO Last administered on 03/04/17 09:44; Admin Dose 5 MG; Start 02/18/17 at 14:36 Miscellaneous Information 1 ea NOTE XX ; Start 02/18/17 at 15:00 Glucose (Glutose) 15 gm Q15M PRN PO DECREASED GLUCOSE; Start 02/18/17 at 15:00 Glucose (Glutose) 22.5 gm Q15M PRN PO DECREASED GLUCOSE; Start 02/18/17 at 15: 00 Dextrose (D50w Syringe) 25 ml Q15M PRN IV DECREASED GLUCOSE; Start 02/18/17 at 15:00 Dextrose (D50w Syringe) 50 ml Q15M PRN IV DECREASED GLUCOSE; Start 02/18/17 at 15:00 Glucagon (Glucagen) 1 mg Q15M PRN IM DECREASED GLUCOSE; Start 02/18/17 at 15:00 Glucose (Glutose) 15 gm Q15M PRN BUCCAL DECREASED GLUCOSE; Start 02/18/17 at 15 :00 Nifedipine (Procardia Xl) 30 mg BID PO Last administered on 03/04/17 09:44; Admin Dose 30 MG; Start 02/18/17 at 21:00 Carvedilol (Coreg) 12.5 mg BID PO Last administered on 03/04/17 09:43; Admin Dose 12.5 MG; Start 02/22/17 at 21:00 Diagnostic Test (Pha) (Accu-Chek) 1 ea BID XX Last administered on 03/04/17 09:45; Admin Dose 1 EA; Start 02/22/17 at 21:00 Epoetin Keven (Epogen (Esrd)) 6,000 units MoWeFr@17 IV Last administered on 16:20; Admin Dose 6,000 UNITS; Start 02/22/17 at 17:00 Bethanechol Chloride (Urecholine) 25 mg TID PO Last administered on 03/04/17 09:44; Admin Dose 25 MG; Start 03/01/17 at 21:00 Assessment/Plan Additional Assessment/Plan Rehab-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 Urinary tract infection. Congestive heart failure. Hypertension. JESSICA ADAMS MD Mar 04, 2017 13:13
[2017-03-04 14:00] VITALS: BP 105/57; RESP 20
--- NOTE | 2017-03-04 18:20 | PN ---
Date/Time of Note Date/Time of Note DATE: 03/04/17 TIME: 18:13 Assessment/Plan VTE Prophylaxis VTE Prophylaxis Intervention: SCD's Lines/Catheters IV C[facility]ter Type (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 Patient is on 25 mg of Urecholine 3 times a day. He is voiding and the towels in bed and the postvoid residual was 109 mL today, therefore no need for straight catheterization Continue to check his bladder with a bladder scan and should he not urinate and have a bladder volume of over 500 do straight cath or if he does urinate and the postvoid residual is 300 or more then do straight cath Problems: Subjective 24 Hr Interval Summary Constitutional: no complaints Eyes: no complaints ENT: no complaints Respiratory: no complaints Cardiovascular: no complaints Gastrointestinal: no complaints Genitourinary: other (Does not feel the urine coming out), No dysuria Skin: no complaints Psychological: depression (A family member just ) Exam/Review of Systems Vital Signs Vitals Vital Signs Date Time Temp Pulse Resp B/P Pulse Ox O2 Delivery O2 Flow Rate FiO2 03/04/17 14:00 98.6 76 20 105/57 96 03/02/17 07:30 Room Air Intake and Output 03/03/17 03/03/17 03/04/17 15:00 23:00 07:00 Intake Total 1200 ml 1500 ml Output Total 2300 ml 700 ml Balance -1100 ml 800 ml Exam Constitutional: alert Psych: depression Eyes: nl conjunctiva ENMT: nl external ears & nose Neck: supple Respiratory: normal air movement Cardiovascular: No edema Gastrointestinal: soft Genitourinary - Male: nl penis, other (Had dialysis yesterday and 1.5 L was removed), No CVA tenderness Extremities: No calf tenderness, No edema Results Results 24 hrs Laboratory Tests Test 03/03/17 20:11 Bedside Glucose 145 Medications Medications Current Medications Polyethylene Glycol (Miralax) 17 gm BID PO Last administered on 03/04/17 09: 43; Admin Dose 17 GM; Start 02/17/17 at 23:00 Prasugrel (Effient) 10 mg DAILY PO Last administered on 03/04/17 09:52; Admin Dose 10 MG; Start 02/18/17 at 09:00 Ropinirole HCl (Requip) 0.25 mg HS PO Last administered on 03/03/17 20:57; Admin Dose 0.25 MG; Start 02/17/17 at 23:00 Tamsulosin HCl (Flomax) 0.4 mg DAILY@21 PO Last administered on 03/03/17 20: 59; Admin Dose 0.4 MG; Start 02/17/17 at 23:00 Zolpidem Tartrate (Ambien) 10 mg HS PRN PO INSOMNIA Last administered on 00:24; Admin Dose 10 MG; Start 02/17/17 at 23:15 Multivit/Ca Carb/ B Cmplx/FA/Prenat (Paulina-Chrissy) 1 tab DAILY PO Last administered on 03/04/17 09:43; Admin Dose 1 TAB; Start 02/18/17 at 09:00 Nicotine (Nicoderm 14 Mg/ 24hr) 1 patch DAILY TRANSDERM Last administered on 09:44; Admin Dose 1 PATCH; Start 02/18/17 at 09:00 Hydralazine HCl (Apresoline) 50 mg BID PO Last administered on 03/04/17 09:44 ; Admin Dose 50 MG; Start 02/17/17 at 23:00 Acetaminophen/ Hydrocodone Bitart ([place] (5/325)) 2 tab Q4H PRN PO PAIN Last administered on 02/19/17 08:38; Admin Dose 2 TAB; Start 02/17/17 at 23:30 Acetaminophen/ Hydrocodone Bitart ([place] (5/325)) 1 tab Q4H PRN PO PAIN; Start 02/17/17 at 23:30 Isosorbide Mononitrate (Imdur) 60 mg DAILY PO Last administered on 03/04/17 09:43; Admin Dose 60 MG; Start 02/18/17 at 09:00 Fish Oil (Fish Oil) 1,000 mg BID PO Last administered on 03/04/17 09:43; Admin Dose 1,000 MG; Start 02/17/17 at 23:15 Docusate Sodium (Colace) 100 mg BID PO Last administered on 03/04/17 09:44; Admin Dose 100 MG; Start 02/17/17 at 23:15 Ergocalciferol (Drisdol) 50,000 unit Tu@09 PO Last administered on 03/02/17 09:00; Admin Dose 50,000 UNIT; Start 02/23/17 at 09:00 Famotidine (Pepcid) 20 mg DAILY PO Last administered on 03/04/17 09:44; Admin Dose 20 MG; Start 02/18/17 at 09:00 Febuxostat (Uloric) 40 mg DAILY PO Last administered on 03/04/17 09:52; Admin Dose 40 MG; Start 02/18/17 at 09:00 Acetaminophen (Tylenol Tab) 650 mg Q6H PRN PO PAIN AND OR ELEVATED TEMP; Start 02/17/17 at 23:15 Atorvastatin Calcium (Lipitor) 10 mg DAILY@21 PO Last administered on 20:57; Admin Dose 10 MG; Start 02/17/17 at 23:15 Bisacodyl (Dulcolax) 10 mg DAILY PRN PO CONSTIPATION; Start 02/17/17 at 23:30 Clonidine (Catapres) 0.1 mg TID PRN PO SBP ABOVE 160mmHg Last administered on 03/01/17 02:21; Admin Dose 0.1 MG; Start 02/17/17 at 23:30 Linagliptin (Tradjenta) 5 mg DAILY PO Last administered on 03/04/17 09:44; Admin Dose 5 MG; Start 02/18/17 at 14:36 Miscellaneous Information 1 ea NOTE XX ; Start 02/18/17 at 15:00 Glucose (Glutose) 15 gm Q15M PRN PO DECREASED GLUCOSE; Start 02/18/17 at 15:00 Glucose (Glutose) 22.5 gm Q15M PRN PO DECREASED GLUCOSE; Start 02/18/17 at 15: 00 Dextrose (D50w Syringe) 25 ml Q15M PRN IV DECREASED GLUCOSE; Start 02/18/17 at 15:00 Dextrose (D50w Syringe) 50 ml Q15M PRN IV DECREASED GLUCOSE; Start 02/18/17 at 15:00 Glucagon (Glucagen) 1 mg Q15M PRN IM DECREASED GLUCOSE; Start 02/18/17 at 15:00 Glucose (Glutose) 15 gm Q15M PRN BUCCAL DECREASED GLUCOSE; Start 02/18/17 at 15 :00 Nifedipine (Procardia Xl) 30 mg BID PO Last administered on 03/04/17 09:44; Admin Dose 30 MG; Start 02/18/17 at 21:00 Carvedilol (Coreg) 12.5 mg BID PO Last administered on 03/04/17 09:43; Admin Dose 12.5 MG; Start 02/22/17 at 21:00 Diagnostic Test (Pha) (Accu-Chek) 1 ea BID XX Last administered on 03/04/17 09:45; Admin Dose 1 EA; Start 02/22/17 at 21:00 Epoetin Keven (Epogen (Esrd)) 6,000 units MoWeFr@17 IV Last administered on 16:20; Admin Dose 6,000 UNITS; Start 02/22/17 at 17:00 Bethanechol Chloride (Urecholine) 25 mg TID PO Last administered on 03/04/17 13:00; Admin Dose 25 MG; Start 03/01/17 at 21:00 VANE PAYTON MD Mar 04, 2017 18:20
[2017-03-04 20:00] VITALS: BP 134/60; RESP 18
[2017-03-04] MEDS: ATORVASTATIN 10 MG TAB PO SCH (21:23)
[2017-03-04] MEDS: ROPINIROLE 0.25 MG TAB PO SCH (21:23)
[2017-03-04] MEDS: TAMSULOSIN (SR) 0.4 MG CAP PO SCH (21:23)
[2017-03-05] VITALS (9 sets, daily range): BP systolic 109–147; BP diastolic 53–65; PULSE 70–86; RESP 16–18
[2017-03-05] MEDS: SEVELAMER 800 MG TAB PO SCH ×2 (07:35→12:52)
[2017-03-05] MEDS: POLYETHYLENE GLYCOL 17 GM PACKET PO SCH (09:00)
[2017-03-05] MEDS: BETHANECHOL 25 MG TAB PO SCH ×2 (09:00→12:53)
[2017-03-05] MEDS: ISOSORBIDE MONONITRATE(SR)60 MG TAB PO SCH (09:00)
[2017-03-05] MEDS: FEBUXOSTAT 40 MG TABLET PO SCH (09:00)
[2017-03-05] MEDS: NICOTINE (14 MG/24 HR) PATCH TRANSDERM SCH (09:00)
[2017-03-05] MEDS: FAMOTIDINE 20 MG TAB PO SCH (09:00)
[2017-03-05] MEDS: ACCU-CHEK XX SCH (09:00)
[2017-03-05] MEDS: FISH OIL 1,000 MG CAP PO SCH (09:00)
[2017-03-05] MEDS: MULTIVIT/CA CARB/B CMPLX/FA TAB PO SCH (09:00)
[2017-03-05] MEDS: NIFEdipine (XL) 30 MG TAB PO SCH (09:00)
[2017-03-05] MEDS: DOCUSATE SODIUM 100 MG CAP PO SCH (09:00)
[2017-03-05] MEDS: BALSAM PERU/CASTOR OIL 60 GM TUBE TOP SCH (09:00)
[2017-03-05] MEDS: PRASUGREL HYDROCHLORIDE 10 MG TABLET PO SCH (09:00)
--- NOTE | 2017-03-05 10:21 | PN ---
DATE: 03/05/2017 SUBJECTIVE: The patient had hemodialysis yesterday, tolerated well. No other events noted. OBJECTIVE: VITAL SIGNS: Blood pressure 128/65, respiration 18, pulse 74, temperature 98.3. HEENT: Head is normocephalic. NECK: Supple. HEART: Regular rate. LUNGS: Show diminished breath sounds at base. ABDOMEN: Soft, nontender to palpation. No rebound or guarding. EXTREMITIES: Negative for clubbing, cyanosis, no edema. DERMATOLOGIC: No rashes. MUSCULOSKELETAL: No joint effusions. NEUROLOGIC: No change in exam. MEDICATIONS: Have been reviewed. LABORATORY DATA: Has been reviewed. No new labs. ASSESSMENT AND PLAN: 1. End-stage renal disease. Plan for hemodialysis today. Will dialyze for 3 hours on 3 K bath, ca lcium 2.5. 2. Anemia. Monitor hemoglobin and hematocrit levels. Continue Epogen. 3. Mineral bone disorder. Monitor calcium and phosphorus levels. 4. Congestive heart failure. Continue medical management. 5. Hypertension. Continue current blood pressure regimen. 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 Continue physical therapy. 7. Diabetes. Continue current insulin regimen. Dictated By: CORIE MALIK/CORA Conf#: [id number] DID#: [id number]
--- NOTE | 2017-03-05 10:49 | CONS ---
Date/Time of Note Date/Time of Note DATE: 03/05/17 TIME: 10:45 Assessment/Plan Assessment/Plan Chief Complaint/Hosp Course 81-year-old male, who was transferred to rehabilitation unit for further rehabilitation following an onset of lower extremity weakness. 1. 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 -Status post treatment with pulse dose steroids followed by IVIG. -Continue PT/OT -Follow-up with outpatient studies EMG/NCV to evaluate for possible demyelinating polyneuropathy such as CIDP 2. 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 Hypertension. Now with good control -Continue current antihypertensives. Will monitor blood pressure closely and will adjust as indicated. 4. End-stage renal disease, on hemodialysis. -Follow-up with nephrology recommendations. 5. Status post sepsis bacteremia with Multidrug resistant urinary tract infection. Repeat Urine CS negative. 6. Coronary artery disease. -Continue home medications. 7. Dyslipidemia. -Continue statin/fish oil. 8. Anemia of ESRD. -HH stable. On Epogen with dialysis. Will monitor. 9. Type 2 diabetes mellitus. Latest A1c 4.9. Patient's blood sugar has been stable. -Stable. At this time, patient did not need any medical management for diabetes. He can be continued on diet control. 10. Benign prostatic hypertrophy -Continue Flomax. 11. Urinary retention, likely secondary to neurogenic bladder. Resolved. -urology evaluation appreciated. on Urecholine 12. Obesity. -Weight reduction advised 13. Nicotine abuse. -Cessation advised. Prophylaxis: Ambulation/SCDs Disposition: Based on patient's rehab improvement, he would possibly benefit from further rehabilitation at the [facility] facility. Patient was seen in collaboration with . Problems: Consultation Date/Type/Reason Admit Date/Time Feb 17, 2017 at 20:40 Initial Consult Date 02/22/17 Type of Consultation: neph Referring Provider: MAURO SPENCER MD, [facility] 24 HR Interval Summary Free Text/Dictation No acute overnight episodes. Discharge planning to residential in progress. Exam/Review of Systems Vital Signs Vitals Vital Signs Date Time Temp Pulse Resp B/P Pulse Ox O2 Delivery O2 Flow Rate FiO2 03/05/17 08:05 98.0 79 16 147/61 95 03/02/17 07:30 Room Air Intake and Output 03/04/17 03/04/17 03/05/17 15:00 23:00 07:00 Intake Total 320 ml 450 ml Balance 320 ml 450 ml Exam General: Elderly male, not in any acute distress . HEENT: Normocephalic, Atraumatic, No laceration or hematoma; Eyes: PEERL, Conjunctiva clear, Anicteric sclera Neck: Supple without any lymphadenopathy, nontender, no JVD, no carotid bruits, trachea midline, no thyromegaly Cardiac: S1, S2 auscultated, regular rhythm and rate, no mumurs or gallop Pulmonary: Normal respiratory effort. Chest clear to auscultation bilaterally, no adventitious breath sounds GI: Abdomen normal to inspection. Soft, non tender, non- distended, no masses, no rebound tenderness or guarding. Bowel sounds active on all four quadrants Genitourinary: Deferred Extremities: With severe weakness to bilateral lower extremities. No cyanosis, clubbing, or edema. Pulses [2+] bilaterally. No focal weakness appreciated. Neurologic: Alert to person, place, time, and situation. Affect appropriate, intact sensation. Skin: Pressure ulcers present. Access: Left upper arm AV shunt. Results Results 24 hrs Laboratory Tests Test 03/04/17 21:26 03/05/17 08:16 Bedside Glucose 113 99 Medications Medications Current Medications Polyethylene Glycol (Miralax) 17 gm BID PO Last administered on 03/04/17 21: 21; Admin Dose 17 GM; Start 02/17/17 at 23:00 Prasugrel (Effient) 10 mg DAILY PO Last administered on 03/04/17 09:52; Admin Dose 10 MG; Start 02/18/17 at 09:00 Ropinirole HCl (Requip) 0.25 mg HS PO Last administered on 03/04/17 21:23; Admin Dose 0.25 MG; Start 02/17/17 at 23:00 Tamsulosin HCl (Flomax) 0.4 mg DAILY@21 PO Last administered on 03/04/17 21: 23; Admin Dose 0.4 MG; Start 02/17/17 at 23:00 Zolpidem Tartrate (Ambien) 10 mg HS PRN PO INSOMNIA Last administered on 00:24; Admin Dose 10 MG; Start 02/17/17 at 23:15 Multivit/Ca Carb/ B Cmplx/FA/Prenat (Paulina-Chrissy) 1 tab DAILY PO Last administered on 03/04/17 09:43; Admin Dose 1 TAB; Start 02/18/17 at 09:00 Nicotine (Nicoderm 14 Mg/ 24hr) 1 patch DAILY TRANSDERM Last administered on 09:44; Admin Dose 1 PATCH; Start 02/18/17 at 09:00 Hydralazine HCl (Apresoline) 50 mg BID PO Last administered on 03/04/17 21:23 ; Admin Dose 50 MG; Start 02/17/17 at 23:00 Acetaminophen/ Hydrocodone Bitart ([place] (5/325)) 2 tab Q4H PRN PO PAIN Last administered on 02/19/17 08:38; Admin Dose 2 TAB; Start 02/17/17 at 23:30 Acetaminophen/ Hydrocodone Bitart ([place] (5/325)) 1 tab Q4H PRN PO PAIN; Start 02/17/17 at 23:30 Isosorbide Mononitrate (Imdur) 60 mg DAILY PO Last administered on 03/04/17 09:43; Admin Dose 60 MG; Start 02/18/17 at 09:00 Fish Oil (Fish Oil) 1,000 mg BID PO Last administered on 03/04/17 21:22; Admin Dose 1,000 MG; Start 02/17/17 at 23:15 Docusate Sodium (Colace) 100 mg BID PO Last administered on 03/04/17 21:23; Admin Dose 100 MG; Start 02/17/17 at 23:15 Ergocalciferol (Drisdol) 50,000 unit Tu@09 PO Last administered on 03/02/17 09:00; Admin Dose 50,000 UNIT; Start 02/23/17 at 09:00 Famotidine (Pepcid) 20 mg DAILY PO Last administered on 03/04/17 09:44; Admin Dose 20 MG; Start 02/18/17 at 09:00 Febuxostat (Uloric) 40 mg DAILY PO Last administered on 03/04/17 09:52; Admin Dose 40 MG; Start 02/18/17 at 09:00 Acetaminophen (Tylenol Tab) 650 mg Q6H PRN PO PAIN AND OR ELEVATED TEMP; Start 02/17/17 at 23:15 Atorvastatin Calcium (Lipitor) 10 mg DAILY@21 PO Last administered on 21:23; Admin Dose 10 MG; Start 02/17/17 at 23:15 Bisacodyl (Dulcolax) 10 mg DAILY PRN PO CONSTIPATION; Start 02/17/17 at 23:30 Clonidine (Catapres) 0.1 mg TID PRN PO SBP ABOVE 160mmHg Last administered on 03/01/17 02:21; Admin Dose 0.1 MG; Start 02/17/17 at 23:30 Linagliptin (Tradjenta) 5 mg DAILY PO Last administered on 03/04/17 09:44; Admin Dose 5 MG; Start 02/18/17 at 14:36 Miscellaneous Information 1 ea NOTE XX ; Start 02/18/17 at 15:00 Glucose (Glutose) 15 gm Q15M PRN PO DECREASED GLUCOSE; Start 02/18/17 at 15:00 Glucose (Glutose) 22.5 gm Q15M PRN PO DECREASED GLUCOSE; Start 02/18/17 at 15: 00 Dextrose (D50w Syringe) 25 ml Q15M PRN IV DECREASED GLUCOSE; Start 02/18/17 at 15:00 Dextrose (D50w Syringe) 50 ml Q15M PRN IV DECREASED GLUCOSE; Start 02/18/17 at 15:00 Glucagon (Glucagen) 1 mg Q15M PRN IM DECREASED GLUCOSE; Start 02/18/17 at 15:00 Glucose (Glutose) 15 gm Q15M PRN BUCCAL DECREASED GLUCOSE; Start 02/18/17 at 15 :00 Nifedipine (Procardia Xl) 30 mg BID PO Last administered on 03/04/17 21:23; Admin Dose 30 MG; Start 02/18/17 at 21:00 Carvedilol (Coreg) 12.5 mg BID PO Last administered on 03/04/17 21:22; Admin Dose 12.5 MG; Start 02/22/17 at 21:00 Diagnostic Test (Pha) (Accu-Chek) 1 ea BID XX Last administered on 03/04/17 21:23; Admin Dose 1 EA; Start 02/22/17 at 21:00 Epoetin Keven (Epogen (Esrd)) 6,000 units MoWeFr@17 IV Last administered on 16:20; Admin Dose 6,000 UNITS; Start 02/22/17 at 17:00 Bethanechol Chloride (Urecholine) 25 mg TID PO Last administered on 03/04/17 21:23; Admin Dose 25 MG; Start 03/01/17 at 21:00 HEATH MAYBERRY NP Mar 05, 2017 10:49
--- NOTE | 2017-03-05 11:48 | DS ---
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 End-stage renal disease on hemodialysis. 3. Urinary tract infection. 4. Congestive heart failure. 5. Hypertension. 6. Improvements in self-care, mobility and cognition. Patient Condition: Fair Hospital Course Patient was admitted for comprehensive interdisciplinary acute rehab. Patient made steady functional gains from an initial maximal to dependent assist for self-care mobility tasks to the point of moderate to minimal assist for self- care and mobility at the wheelchair level. Patient was able to ambulate limited distances with use of a front wheel walker at moderate to maximal assist level. Despite steady functional gains family now reports they will be unable to provide the assistance necessary at home and are requesting continued therapy at lower level of care. She will be transferred to nursing home facility for continued therapies and is now able to tolerate lower level of care. Initially noted in the sacral and buttock region have significantly improved during the course of hospitalization. Patient has been followed by renal service for his hemodialysis the course of his stay. Home Meds Reported Medications Ropinirole Hcl* (Ropinirole Hcl*) 0.25 Mg Tablet, 0.25 MG PO HS, TAB 01/29/17 Clonidine Hcl* (Clonidine Hcl*) 0.1 Mg Tab, 0.1 MG PO TID Y for HTN, TAB NEEDED IF SBP>160 01/29/17 Icosapent Ethyl (VASCEPA) 1 Gm Capsule, 1 GM PO QID, CAP 01/29/17 Isosorbide Mononitrate* (Isosorbide Mononitrate*) 60 Mg Tab.er.24h, 60 MG PO DAILY, TAB 01/29/17 [Nephro-Chrissy] No Conflict Check, 1 TAB PO DAILY 01/29/17 Febuxostat* (Uloric*) 40 Mg Tablet, 40 MG PO DAILY, TAB 02/06/16 Nifedipine* (Nifedipine ER*) 30 Mg Tablet.sa, 30 MG PO DAILY, TAB.SA 02/06/16 Simvastatin* (Zocor*) 20 Mg Tablet, 20 MG PO QHS, #30 TAB 02/06/16 Prasugrel Hydrochloride* (Effient*) 10 Mg Tablet, 10 MG PO DAILY, TAB 02/06/16 Tamsulosin Hcl* (Tamsulosin Hcl*) 0.4 Mg Cap.er.24h, 0.4 MG PO DAILY, CAP 02/06/16 Carvedilol* (Carvedilol*) 3.125 Mg Tablet, 3.125 MG PO BID, #60 TAB 02/06/16 Hydralazine Hcl* (Hydralazine Hcl*) 50 Mg Tab, 50 MG PO BID, #30 TAB 02/06/16 Ergocalciferol* (Drisdol* (Vitamin D2)) 50,000 Unit Capsule, 05691 UNIT PO Q7D, CAP TAKE EVERY Tuesdays02/06/16 Primary Care Provider Jadon Barbosa Pending Labs Laboratory Tests Test 03/04/17 21:26 03/05/17 08:16 Bedside Glucose 113mg/dL (70-220) 99mg/dL (70-220) JESSICA ADAMS MD Mar 05, 2017 11:48
== END 2017-03-05 18:10 | DRG 945 ==
LOC: VRC 20:40
PROVIDERS: ADMIT Physical Medicine & Rehabilitation; ATTEND Internal Medicine Pulmonary Disease
PROC: F07Z9FZ Gait Training/Functional Ambulation Treatment using Assistive, Adaptive, Supportive or Protective Equipment (ICD-10-PCS; principal; 2017-02-17)
PROC: F07Z8FZ Transfer Training Treatment using Assistive, Adaptive, Supportive or Protective Equipment (ICD-10-PCS; 2017-02-17)
PROC: F07Z5FZ Bed Mobility Treatment using Assistive, Adaptive, Supportive or Protective Equipment (ICD-10-PCS; 2017-02-17)
PROC: F08Z2FZ Grooming/Personal Hygiene Treatment using Assistive, Adaptive, Supportive or Protective Equipment (ICD-10-PCS; 2017-02-17)
PROC: F08Z0FZ Bathing/Showering Techniques Treatment using Assistive, Adaptive, Supportive or Protective Equipment (ICD-10-PCS; 2017-02-17)
PROC: F08Z1FZ Dressing Techniques Treatment using Assistive, Adaptive, Supportive or Protective Equipment (ICD-10-PCS; 2017-02-17)
PROC: 5A1D70Z Performance of Urinary Filtration, Intermittent, Less than 6 Hours Per Day (ICD-10-PCS; 2017-02-18)
DX: R53.1 Weakness (principal); N18.6 End stage renal disease; I13.2 Hypertensive heart and chronic kidney disease with heart failure and with stage 5 chronic kidney disease, or end stage renal disease; G93.40 Encephalopathy, unspecified; E11.22 Type 2 diabetes mellitus with diabetic chronic kidney disease; D69.6 Thrombocytopenia, unspecified; G61.9 Inflammatory polyneuropathy, unspecified; R29.818 Other symptoms and signs involving the nervous system; F06.8 Other specified mental disorders due to known physiological condition; N31.9 Neuromuscular dysfunction of bladder, unspecified; I50.9 Heart failure, unspecified; Z99.2 Dependence on renal dialysis; D63.1 Anemia in chronic kidney disease; F06.31 Mood disorder due to known physiological condition with depressive features; N39.498 Other specified urinary incontinence; I25.10 Atherosclerotic heart disease of native coronary artery without angina pectoris; N40.0 Benign prostatic hyperplasia without lower urinary tract symptoms; E66.9 Obesity, unspecified; Z68.31 Body mass index [BMI] 31.0-31.9, adult; F17.210 Nicotine dependence, cigarettes, uncomplicated; E78.5 Hyperlipidemia, unspecified; Z86.61 Personal history of infections of the central nervous system; Z87.01 Personal history of pneumonia (recurrent); Z87.440 Personal history of urinary (tract) infections; Z86.19 Personal history of other infectious and parasitic diseases
CPT/HCPCS: 80048; 80053; 81001; 82607; 82746; 82962; 83540; 83735; 84100; 85018; 85025; 85610; 85730; 87081; 87086; 90935; 92507; 92523; 92610; 97110; 97112; 97116; 97150; 97163; 97167; 97530; 97535; 97542; A4310; J0696; J0886; J1644; J1815; L1820